=== PATIENT | male | born 1935 | race Caucasian/White ===

== ENCOUNTER 2022-07-08 06:40 | Outpatient (OUT) | payer MEDICARE, SELFPAY ==
[2022-07-08] MEDS: REGADENOSON 0.4 MG/5 ML SYRINGE IV (09:09)
[2022-07-08 11:26] VITALS: BMI 30.5
== END 2022-07-08 06:41 ==
LOC: CARD 06:42
PROVIDERS: PCP Family Medicine; Visit Provider Internal Medicine Interventional Cardiology
DX: R07.9 Chest pain, unspecified (principal)
CPT/HCPCS: 93017; J2785

== ENCOUNTER 2022-07-16 13:11 | Outpatient (OUT) | payer MEDICARE, SELFPAY ==
[2022-07-16 13:47] LABS: Basophils Percent Auto 0.3 % (0.2-2.0); Eosinophils Absolute Auto 0.4 10^3/uL (0.0-0.7); Eosinophils Percent Auto 5.8 % (0.9-7.0); Hematocrit 37.7 % (42.0-54.0); Hemoglobin 12.5 g/dL (14.0-18.0); Immature Granulocytes Abs Auto 0.01 10^3/uL (0.00-0.03); Immature Granulocytes Pct Auto 0.2 % (0.0-0.5); Lymphocytes Absolute Auto 1.4 10^3/uL (1.2-3.8); Lymphocytes Percent Auto 21.7 % (20.5-60.0); Mean Corpuscular HGB Conc 33.2 g/dL (29.9-35.2); Mean Corpuscular Hemoglobin 29.8 pg (25.9-34.0); Mean Corpuscular Volume 89.8 fL (80.0-94.0); Mean Platelet Volume 10.2 fL (9.5-13.5); Monocytes Absolute Auto 0.6 10^3/uL (0.3-0.8); Monocytes Percent Auto 9.7 % (1.7-12.0); Neutrophils Absolute Auto 3.9 10^3/uL (1.4-6.5); Neutrophils Percent Auto 62.3 % (43.0-75.0); Platelet Count 166 10^3/uL (150-450); White Blood Count 6.2 10^3/uL (4.0-11.0)
[2022-07-16 13:56] LABS: Anion Gap 10.6; BUN Creatinine Ratio 14.9; Calcium 8.6 mg/dL (8.5-10.1); Carbon Dioxide 31.7 mmol/L (21.0-32.0); Chloride 103 mmol/L (98-107); Estimated GFR (African America 47 (>=60); Estimated GFR (Non-African Ame 39 (>=60); Glucose 285 mg/dL (74-106); Potassium 4.3 mmol/L (3.5-5.1); Sodium 141 mmol/L (136-145)
--- NOTE | 2022-07-19 16:36 | PCN_ITS ---
Requesting Physician:? Oswaldo Deleon M.D. Procedure Date:? 07/08/2022 PERFORMING PHYSICIAN:? Yisel Soto M.D. INDICATION:? Chest pain. STRESS TEST TYPE:? Nuclear Lexiscan myocardial perfusion imaging. RESTING EKG:? Abnormal, sinus rhythm with ST/T-wave abnormalities, concerning for lateral ST and first degree AV block. RESTING HEART RATE:? 74 PEAK HEART RATE:? 85 RESTING BLOOD PRESSURE:? 138/78 PEAK BLOOD PRESSURE:? 138/78 ST CHANGES:? No definitive ST changes meeting the criteria for ischemia. SYMPTOMS:? None. ARRHYTHMIAS:? None. CONCLUSIONS: 1.? Baseline EKG is abnormal.? Patient had sinus rhythm with first degree AV block, ST and T-wave abnormalities, concerning for lateral ischemia. 2.? No definite EKG changes meeting the criteria for ischemia post Lexiscan infusion. 3.? Please refer to separately performed and interpreted nuclear perfusion imaging. [facility]
== END 2022-07-16 13:12 ==
PROVIDERS: PCP Family Medicine
DX: I48.3 Typical atrial flutter (principal)
CPT/HCPCS: 36415; 80048; 85025

== ENCOUNTER 2022-07-27 15:04 | Outpatient (OUT) | payer MEDICARE, SELFPAY ==
[2022-07-27 16:05] LABS: Alanine Aminotransferase 24 U/L (16-63); Albumin Globulin Ratio 0.9; Albumin Level 3.4 g/dL (3.4-5.0); Alkaline Phosphatase 53 U/L (46-116); Anion Gap 11.4; Aspartate Amino Transferase 18 U/L (15-37); BUN Creatinine Ratio 23.4; Bilirubin Total 0.8 mg/dL (0.2-1.0); Calcium 8.9 mg/dL (8.5-10.1); Carbon Dioxide 29.1 mmol/L (21.0-32.0); Chloride 105 mmol/L (98-107); Estimated GFR (African America 48 (>=60); Estimated GFR (Non-African Ame 39 (>=60); Globulin 3.9 g/dL; Glucose 191 mg/dL (74-106); Potassium 4.5 mmol/L (3.5-5.1); Sodium 141 mmol/L (136-145); Total Protein 7.3 g/dL (6.4-8.2)
== END 2022-07-27 15:05 ==
LOC: LAB 15:06
PROVIDERS: PCP Family Medicine
DX: I25.118 Atherosclerotic heart disease of native coronary artery with other forms of angina pectoris (principal)
CPT/HCPCS: 36415; 80053

== ENCOUNTER 2022-10-13 11:48 | Emergency (ER) | payer MEDICARE, SELFPAY ==
[2022-10-13] VITALS (54 sets, daily range): BP systolic 127–171; BP diastolic 61–100; PULSE 70–101; RESP 0–22; TEMP 37.1; O2SAT 91–99
--- NOTE | 2022-10-13 11:51 | ED_ITS ---
HPI - Chest Pain General Chief Complaint: Chest Pain Stated Complaint: CHEST PAIN Time Seen by Provider: 10/13/22 11:51 History of Present Illness HPI narrative: Patient brought into the emergency department via EMS for complaint of chest pain. Patient states he was having breakfast this morning and developed chest pain. He states he felt nauseated vomited one time and the chest pain got better. He states he gets this chest pain intermittently when he eats. He denies any nausea currently. He is not having any pain currently. He states he feels a bit weak. He denies any palpitations, dizziness, lightheadedness. He denies any diaphoresis. He denies any abdominal pain. Denies any diarrhea. He denies any cough, shortness of breath or upper respiratory infection symptoms. Patient states he has a history of coronary artery disease. He had a heart catheterization in April at [facility] where he was told he needed at least 3 stents were cabbage. He was advised that he is not a candidate for CABG but he did not have any stents placed during that intervention. The patient has been taking isosorbide since. Related Data Home Medications Medication Instructions Recorded Confirmed apixaban 5 mg tablet (Eliquis) 5 mg PO BID 07/08/22 10/13/22 atorvastatin 40 mg tablet 40 mg PO QDAY 07/08/22 10/13/22 insulin glargine 100 unit/mL (3 28 unit subcut QDAY 07/08/22 10/13/22 mL) subcutaneous pen (Lantus Solostar U-100 Insulin) losartan 50 mg tablet (Cozaar) 50 mg PO QDAY 07/08/22 10/13/22 metoprolol succinate 25 mg 25 mg PO QDAY 07/08/22 10/13/22 tablet,extended release 24 hr ezetimibe 10 mg tablet 10 mg PO DAILY 10/13/22 10/13/22 potassium chloride 10 mEq 10 meq PO BID 10/13/22 10/13/22 tablet,extended release Allergies Allergy/AdvReac Type Severity Reaction Status Date / Time niacin Allergy Mild Flushing Verified 07/08/22 10:24 Review of Systems ROS Status of ROS 10 or more systems reviewed and unremarkable except as noted in history and below Exam Narrative Exam Narrative: Nurses notes and vital signs reviewed and patient is not hypoxic. General: Nontoxic,Elderly, frail, chronically ill, and in no apparent distress. Skin: Warm, dry, no pallor noted. No Rash Head: Normocephalic, atraumatic. Neck: Supple, non-tender. Eye: Pupils are equal, round and EOMI. No scleral icterus. Ears, Nose, Mouth, and Throat: TM clear, no posterior oropharynx erythema or nasal mucosal hypertrophy, uvula is mid-line Cardiovascular: Regular Rate and Rhythm without murmur, gallop or rub. Respiratory: No accessory muscle use or respiratory distress. Lungs are clear to auscultation, no wheezing, rales or rhonchi Chest Wall: no tenderness Back: No midline thoracic or lumbar vertebral tenderness. No CVA tenderness Musculoskeletal: normal ROM, no calf or popliteal tenderness, no lower extremity edema/swelling GI: Abdomen is soft, non-distended. Normal bowel sounds. No tenderness to palpation. No rebound, guarding, or rigidity noted. Neurological: A&O x4. No cranial nerve dysfunction observed. No truncal ataxia. Moves all extremities. Psychiatric: Cooperative and interactive. Normal mood and affect. Constitutional Vital Signs, click to edit/add: Last Vital Signs Temp 98.8 F 10/13/22 11:51 Pulse 78 10/13/22 16:00 Resp 8 L 10/13/22 16:00 BP 158/85 H 10/13/22 16:00 Pulse Ox 99 10/13/22 16:00 O2 Del Method Room Air 10/13/22 11:51 Course Vital Signs Vital signs: Vital Signs Temperature 98.8 F 10/13/22 11:51 Pulse Rate 89 10/13/22 11:51 Respiratory Rate 18 10/13/22 11:51 Blood Pressure 167/84 H 10/13/22 11:51 Pulse Oximetry 94 L 10/13/22 11:51 Oxygen Delivery Method Room Air 10/13/22 11:51 Temperature 98.8 F 10/13/22 11:51 Pulse Rate 78 10/13/22 16:00 Respiratory Rate 8 L 10/13/22 16:00 Blood Pressure 158/85 H 10/13/22 16:00 Pulse Oximetry 99 10/13/22 16:00 Oxygen Delivery Method Room Air 10/13/22 11:51 MDM - Chest Pain MDM Narrative Medical decision making narrative: EKG shows ST depressions in V3 to V6. The patient's troponin is elevated. Patient was discussed with Dr. White who advised sending the patient to [facility]. Patient states if he were to need stents he would want stents. Patient was started on nitroglycerin and heparin drips. Patient was discussed with the hospitalist to [facility] who has accepted the patient in transfer. They are discharged to pending at this time. Patient remains hemodynamically stable. We'll continue to monitor the patient, repeat labs. Patient will be signed out at the end of my shift to Dr. Webb at the end of my shift awaiting bed assignment/transfer to [facility]. This note was created with the assistance of a speech recognition program. Although the intention is to generate documents that actually reflects the content of the visit, no guarantees can be provided that every mistake has been identified and corrected by editing. Medical Records Data Attestation: I reviewed the patient's medical records. Lab Data Attestation: I reviewed the patient's lab results. Labs: Lab Results 10/13/22 Range/Units 12:06 WBC 5.3 (4.0-11.0) 10^3/uL RBC 4.95 (4.70-6.10) 10^6/uL Hgb 14.7 (14.0-18.0) g/dL Hct 44.7 (42.0-54.0) % MCV 90.3 (80.0-94.0) fL MCH 29.7 (25.9-34.0) pg MCHC 32.9 (29.9-35.2) g/dL RDW 12.6 (11.0-15.0) % Plt Count 130 L (150-450) 10^3/uL MPV 10.4 (9.5-13.5) fL Neut % (Auto) 64.8 (43.0-75.0) % Lymph % (Auto) 20.4 L (20.5-60.0) % Benson % (Auto) 9.9 (1.7-12.0) % Eos % (Auto) 4.3 (0.9-7.0) % Baso % (Auto) 0.4 (0.2-2.0) % Neut # (Auto) 3.5 (1.4-6.5) 10^3/uL Lymph # (Auto) 1.1 L (1.2-3.8) 10^3/uL Benson # (Auto) 0.5 (0.3-0.8) 10^3/uL Eos # (Auto) 0.2 (0.0-0.7) 10^3/uL Baso # (Auto) 0.0 (0.0-0.1) 10^3/uL Abs Immat Gran (auto) 0.01 (0.00-0.03) 10^3/uL Imm/Tot Granulo (auto) 0.2 (0.0-0.5) % PT 11.8 H (9.0-11.6) sec INR 1.12 APTT 30.9 (22.3-36.2) sec Sodium 138 (136-145) mmol/L Potassium 4.1 (3.5-5.1) mmol/L Chloride 103 (98-107) mmol/L Carbon Dioxide 28.6 (21.0-32.0) mmol/L Anion Gap 10.5 BUN 34.0 H (7.0-18.0) mg/dL Creatinine 1.55 H (0.70-1.30) mg/dL Est GFR ( Amer) 52 L (>=60) Est GFR (Non-Af Amer) 43 L (>=60) BUN/Creatinine Ratio 21.9 Glucose 303 H (74-106) mg/dL Calcium 9.4 (8.5-10.1) mg/dL Total Bilirubin 1.0 (0.2-1.0) mg/dL AST 31 (15-37) U/L ALT 25 (16-63) U/L Alkaline Phosphatase 52 (46-116) U/L Troponin I High Sens 1130.0 H* (4.0-76.1) pg/mL NT-Pro-B Natriuret Pep 2301.0 H* (<=1800.0) pg/mL Total Protein 7.6 (6.4-8.2) g/dL Albumin 3.7 (3.4-5.0) g/dL Globulin 3.9 g/dL Albumin/Globulin Ratio 0.9 ECG Data Attestation: I personally reviewed and interpreted this ECG as follows: Heart Score History: Highly Suspicious ECG: Sign. ST Depression Age: >65 years Risk Factors: >3 Risk Factors/ HX of CAD:2 Troponin: >3X Normal Limit Total Heart Score Recommendations & Risks:: 10 Discharge Plan Discharge Chief Complaint: Chest Pain Clinical Impression: Acute non-ST elevation myocardial infarction (NSTEMI) Patient Disposition: Still a Patient Time of Disposition Decision: 14:06 Discharge Location: The [facility] Condition: Good Mode of Transportation: EMS
--- NOTE | 2022-10-13 11:52 | XR_ITS ---
The [address] [address] Patient Name: ZAIRA SINGLETON MRN: [id number] date: 1935 Sex: M Assigned Patient Location: ER Current Patient Location: ER Accession/Order Number: [id number] Exam Date: 10/13/2022 12:20 Report Date: 10/13/2022 12:46 At the request of: RADHA CRAWFORD Procedure: XR chest 1V EXAM: XR chest 1V HISTORY: cp COMPARISON: None. TECHNIQUE: AP view of the chest. FINDINGS: The cardiomediastinal silhouette is normal. The lungs are clear. There is no pneumothorax. No pleural effusion is noted. The osseous structures are intact. XR/XR chest 1V IMPRESSION: No acute cardiopulmonary process. Electronically authenticated by: CARA PENDLETON Date: 10/13/2022 12:46
--- NOTE | 2022-10-13 11:52 | ECG_ITS ---
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
[2022-10-13 12:34] LABS: INR 1.12; Partial Thromboplastin Time 30.9 sec (22.3-36.2); Prothrombin Time 11.8 sec (9.0-11.6)
[2022-10-13 12:35] LABS: Basophils Percent Auto 0.4 % (0.2-2.0); Eosinophils Absolute Auto 0.2 10^3/uL (0.0-0.7); Eosinophils Percent Auto 4.3 % (0.9-7.0); Hematocrit 44.7 % (42.0-54.0); Hemoglobin 14.7 g/dL (14.0-18.0); Immature Granulocytes Abs Auto 0.01 10^3/uL (0.00-0.03); Immature Granulocytes Pct Auto 0.2 % (0.0-0.5); Lymphocytes Absolute Auto 1.1 10^3/uL (1.2-3.8); Lymphocytes Percent Auto 20.4 % (20.5-60.0); Mean Corpuscular HGB Conc 32.9 g/dL (29.9-35.2); Mean Corpuscular Hemoglobin 29.7 pg (25.9-34.0); Mean Corpuscular Volume 90.3 fL (80.0-94.0); Mean Platelet Volume 10.4 fL (9.5-13.5); Monocytes Absolute Auto 0.5 10^3/uL (0.3-0.8); Monocytes Percent Auto 9.9 % (1.7-12.0); Neutrophils Absolute Auto 3.5 10^3/uL (1.4-6.5); Neutrophils Percent Auto 64.8 % (43.0-75.0); Platelet Count 130 10^3/uL (150-450); Red Blood Count 4.95 10^6/uL (4.70-6.10); Red Cell Distribution Width 12.6 % (11.0-15.0); White Blood Count 5.3 10^3/uL (4.0-11.0)
[2022-10-13 12:48] LABS: Alanine Aminotransferase 25 U/L (16-63); Albumin Globulin Ratio 0.9; Albumin Level 3.7 g/dL (3.4-5.0); Alkaline Phosphatase 52 U/L (46-116); Anion Gap 10.5; Aspartate Amino Transferase 31 U/L (15-37); BUN Creatinine Ratio 21.9; Calcium 9.4 mg/dL (8.5-10.1); Carbon Dioxide 28.6 mmol/L (21.0-32.0); Chloride 103 mmol/L (98-107); Estimated GFR (African America 52 (>=60); Estimated GFR (Non-African Ame 43 (>=60); Globulin 3.9 g/dL; Glucose 303 mg/dL (74-106); Potassium 4.1 mmol/L (3.5-5.1); Sodium 138 mmol/L (136-145); Total Protein 7.6 g/dL (6.4-8.2)
[2022-10-13] MEDS: HEPARIN SODIUM,PORCINE/D5W 25,000 UNIT/500 ML IV.SOLN 20 UNIT IV (14:17)
[2022-10-13] MEDS: NITROGLYCERIN IN 5 % DEXTROSE 50 MG/250 ML INFUS..BTL IV (14:19)
[2022-10-13 18:38] LABS: Troponin I High Sensitivity 1342.2 pg/mL (4.0-76.1)
[2022-10-13 18:46] LABS: Glucometer 173 mg/dL (74-106)
== END 2022-10-13 20:55 | disposition short-term general hospital (02) ==
PROVIDERS: Emergency Provider Emergency Medicine; PCP Family Medicine
DX: I21.4 Non-ST elevation (NSTEMI) myocardial infarction (principal); I25.10 Atherosclerotic heart disease of native coronary artery without angina pectoris; Z79.01 Long term (current) use of anticoagulants; Z79.4 Long term (current) use of insulin
CPT/HCPCS: 36415; 71045; 80053; 83880; 84484; 85025; 85610; 85730; 93005; 96374; 96375; 99285

== ENCOUNTER 2022-10-26 14:23 | Outpatient (OUT) | payer MEDICARE, SELFPAY ==
[2022-10-26 15:21] LABS: Anion Gap 10.9; BUN Creatinine Ratio 30.9; Calcium 9.1 mg/dL (8.5-10.1); Carbon Dioxide 27.6 mmol/L (21.0-32.0); Chloride 105 mmol/L (98-107); Estimated GFR (African America 48 (>=60); Estimated GFR (Non-African Ame 40 (>=60); Glucose 171 mg/dL (74-106); Potassium 4.5 mmol/L (3.5-5.1); Sodium 139 mmol/L (136-145)
== END 2022-10-26 14:24 | disposition home or self-care (01) ==
PROVIDERS: PCP Family Medicine; Visit Provider Nurse Practitioner
DX: I25.118 Atherosclerotic heart disease of native coronary artery with other forms of angina pectoris (principal)
CPT/HCPCS: 36415; 80048

== ENCOUNTER 2022-11-08 14:51 | Outpatient (OUT) | payer MEDICARE, SELFPAY ==
[2022-11-08 16:21] LABS: Anion Gap 14.2; BUN Creatinine Ratio 28.9; Calcium 9.1 mg/dL (8.5-10.1); Carbon Dioxide 25.9 mmol/L (21.0-32.0); Chloride 104 mmol/L (98-107); Estimated GFR (African America 44 (>=60); Estimated GFR (Non-African Ame 36 (>=60); Glucose 177 mg/dL (74-106); Potassium 5.1 mmol/L (3.5-5.1); Sodium 139 mmol/L (136-145)
== END 2022-11-08 14:52 | disposition home or self-care (01) ==
LOC: LAB 14:57
PROVIDERS: PCP Family Medicine; Visit Provider Nurse Practitioner
DX: I10 Essential (primary) hypertension (principal)
CPT/HCPCS: 36415; 80048

== ENCOUNTER 2022-11-15 14:46 | Outpatient (OUT) | payer MEDICARE, SELFPAY ==
[2022-11-15 15:42] LABS: Anion Gap 9.8; BUN Creatinine Ratio 22.8; Calcium 8.5 mg/dL (8.5-10.1); Carbon Dioxide 28.8 mmol/L (21.0-32.0); Chloride 105 mmol/L (98-107); Estimated GFR (African America 56 (>=60); Estimated GFR (Non-African Ame 46 (>=60); Glucose 173 mg/dL (74-106); Potassium 4.6 mmol/L (3.5-5.1); Sodium 139 mmol/L (136-145)
== END 2022-11-15 14:47 | disposition home or self-care (01) ==
LOC: LAB 14:48
PROVIDERS: PCP Family Medicine; Visit Provider Nurse Practitioner
DX: I11.0 Hypertensive heart disease with heart failure (principal)
CPT/HCPCS: 36415; 80048

== ENCOUNTER 2023-01-05 15:00 | Outpatient (OUT) | payer MEDICARE, SELFPAY ==
[2023-01-05 15:44] LABS: Anion Gap 11.5; BUN Creatinine Ratio 24.8; Calcium 8.7 mg/dL (8.5-10.1); Carbon Dioxide 29.8 mmol/L (21.0-32.0); Chloride 105 mmol/L (98-107); Estimated GFR (African America 56 (>=60); Estimated GFR (Non-African Ame 46 (>=60); Glucose 178 mg/dL (74-106); Potassium 4.3 mmol/L (3.5-5.1); Sodium 142 mmol/L (136-145)
== END 2023-01-05 15:01 | disposition home or self-care (01) ==
PROVIDERS: PCP Family Medicine; Visit Provider Nurse Practitioner
DX: I11.0 Hypertensive heart disease with heart failure (principal)
CPT/HCPCS: 36415; 80048

== ENCOUNTER 2023-02-04 07:05 | Outpatient (RCR) | payer MEDICARE, SELFPAY ==
--- NOTE | 2022-11-09 15:17 | CR1_ITS ---
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 Order Number: [id number] Syed MD: GERARDO DUMONT Interpretive Statements Session Date: Electronically Signed On 11-11-2022 7:10:25 EDT by GERARDO DUMONT
--- NOTE | 2022-12-08 11:13 | CR1_ITS ---
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 Order Number: [id number] Syed MD: GERARDO DUMONT Interpretive Statements Session Date: Electronically Signed On 12-09-2022 7:34:05 EDT by GERARDO DUMONT
--- NOTE | 2023-01-10 14:42 | CR1_ITS ---
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 Order Number: [id number] Syed MD: GERARDO DUMONT Interpretive Statements Session Date: Electronically Signed On 01-11-2023 7:18:34 EST by GERARDO DUMONT
--- NOTE | 2023-02-04 11:56 | CR1_ITS ---
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 Order Number: [id number] Syed MD: GERARDO DUMONT Interpretive Statements Session Date: Electronically Signed On 02-08-2023 7:17:41 EST by GERARDO DUMONT
== END 2023-02-04 17:08 | disposition home or self-care (01) ==
LOC: CR 07:05
PROVIDERS: PCP Family Medicine; Visit Provider Internal Medicine Interventional Cardiology
DX: I21.4 Non-ST elevation (NSTEMI) myocardial infarction (principal)
CPT/HCPCS: 93798

== ENCOUNTER 2023-02-11 07:11 | Outpatient (RCR) | payer MEDICARE, SELFPAY | END 2023-02-11 14:27 | disposition home or self-care (01) | LOC: CR 07:11 | PROVIDERS: PCP Family Medicine; Visit Provider Internal Medicine Interventional Cardiology | DX: I21.4 Non-ST elevation (NSTEMI) myocardial infarction (principal) | CPT/HCPCS: 93798 ==

== ENCOUNTER 2023-06-23 14:25 | Outpatient (OUT) | payer MEDICARE, SELFPAY ==
--- OUTSIDE RECORDS SUMMARY | 2023-06-23 14:46 | XMS_ITS | CCD ---
Author Organization [employer] Care Team Providers Care Sign Painter Name Role Phone DOMINGO MEDRANO Primary Care Physician [phone] Gilson Salgado Primary Care Physician NATALEE, DR HAZEL Attending Unavailable MEDRANO ., DR DOMINGO Tran Primary Care Unavailable NATALEE, DR HAZEL Admitting Unavailable TARA CARDENAS Attending Unavailable TARA CARDENAS Admitting Unavailable MEDRANO ., DR DOMINGO Tran Primary Care Unavailable CRICKET TIERNEY Attending Unavailable CRICKET TIERNEY Admitting Unavailable MEDRANO ., DR DOMINGO Tran Primary Care Unavailable CRICKET TIERNEY Consulting Unavailable CRICKET TIERNEY Attending Unavailable CRIKCET TIERNEY Admitting Unavailable MEDRANO ., DR DOMINGO Tran Primary Care Unavailable CRICKET TIERNEY Consulting Unavailable RAPHAEL FERNANDES Admitting Unavailable RAPHAEL FERNANDES Attending Unavailable REQUEST, NONE LISTED Primary Care Unavaila ble DOM, RAPHAEL Blanton Admitting Unavailable HIGHLHARDIK, RAPHAEL Blanton Attending Unavailable REQUEST, NONE LISTED Primary Care Unavaila valdo FERNANDES, RAPHAEL Blanton Admitting Unavailable RAPHAEL FERNANDES Attending Unavailable REQUEST, NONE LISTED Primary Care Unavaila ble DOM, RAPHAEL Blanton Admitting Unavailable HIGHLANDER, RAPHAEL Blanton Attending Unavailable REQUEST, NONE LISTED Primary Care Unavaila ble DOM, RAPHAEL Blanton Attending Unavailable REQUEST, NONE LISTED Primary Care Unavaila ble DOM, PETER D Admitting Unavailable HIGHLANDER, RAPHAEL Blanton Admitting Unavailable HIGHLHARDIK, RAPHAEL Blanton Attending Unavailable REQUEST, NONE LISTED Primary Care Unavaila TARA Andrew Attending Unavailable TARA CARDENAS Admitting Unavailable MEDRANO ., DR DOMINGO Tran Primary Care Unavailable CELIO SINGLETARY Consulting Unavailable CELIO SINGLETARY Attending Unavailable GILSON SALGADO Primary Care Unavailable CELIO SINGLETARY Admitting Unavailable TARA CARDENAS Consulting Unavailable TARA CARDENAS Attending Unavailable TARA CARDENAS Admitting Unavailable KELLY ., DR DOMINGO Tran Primary Care Unavailable REQUEST, DR MICHAEL LISTED Primary Care Unavaila ble KELLY ., DR DOMINGO Tran Consulting Unavailable MEDRANO ., DR DOMINGO Tran Attending Unavailable MEDRANO ., DR DOMINGO Tran Admitting Unavailable Dipesh, Gilson E. Attending Unavailable Ross, Gilson E. Attending Unavailable Ross, Gilson E. Attending Unavailable Ross, Gilson E. Attending Unavailable Ross, Gilson E. Attending Unavailable Ross, Gilson E. Attending Unavailable Ross, Gilson E. Attending Unavailable Ross, Gilson E. Attending Unavailable Ross, Gilson E. Admitting Unavailable Ross, Gilson E. Attending Unavailable Ross, Gilson E. Admitting Unavailable Ross, Gilson E. Attending Unavailable Ross, Gilson E. Admitting Unavailable Ross, Gilson E. Attending Unavailable Ross, Gilson E. Admitting Unavailable BOHACH, PATRICK Shrestha Attending Unavailabl e BOHPATRICK DELUNA Attending Unavailabl e HORANI, MERCEDES Referring Unavailable ANOOP REDDY Attending Unavailable DAGOBERTO COPPOLA Attending Unavailable TARA CARDENAS Attending Unavailable MUNROE, ADRIÁN Referring Unavailable GEMINICELIO Attending Unavailable FREDYAZTARA Allen Attending Unavailable GEMINICELIO Attending Unavailable MUNROE, ADRIÁN Referring Unavailable SLIME, WILBUR Referring Unavailable MUNROE, ADRIÁN Attending Unavailable MUNROE, ADRIÁN Admitting Unavailable MARC, CYN Admitting Unavailable YVETTE, RADHA Referring Unavailable HORANI, MERCEDES Attending Unavailable HORANI, MERCEDES Referring Unavailable Allergies Allergy Classification Reported Allergen(s) Allergy Type Date of Onset Reaction(s) Facility (3 sources) Ascorbic Acid / Cholecalciferol / Vitamin A; Translations: [multivitamin] Drug Allergy Unknown (qualifier value) [facility] (5 sources) Niacin; Translations: [niacin] Drug Allergy 1 Unknown (qualifier value) [facility] (2 sources) Niacin Drug Allergy 3 [facility]ository (1 source) Multivitamin preparation; Translations: [MULTIVITAMIN] Drug Allergy 3 [facility] Repository Medications Current Medications Medication Drug Class(es) Dates Sig (Normalized) Sig (Original) apixaban 5 mg oral tablet (3 sources) Factor Xa Inhibitor Start: 04-20-2023 take 1 tablet by mouth twice daily Eliquis 5 mg oral tablet 5 mg = 1 tab(s), Oral, BID, Refills(s) 0 Start Date: 04/20/23 Status: Ordered Start: 04-19-2022 take 1 tablet by ryland th twice daily Eliquis 5 mg oral tablet TAKE 1 TABLET BY MOUTH TWICE A DAY. Resume this medication after I bruising has healed Start Date: 04/19/22 Status: Ordered ascorbic acid 250 mg oral tablet (1 source) Vitamin C Start: 04-23-2022 take 1 tablet by mouth twice daily ascorbic acid 250 mg oral tablet 250 mg = 1 tab(s), Oral, BID, # 60 EA, Refills(s) 0 Start Date: 04/23/22 Status: Ordered aspirin 81 mg delayed release oral tablet (2 sources) Platelet Aggregation Inhibitor, Nonsteroidal Anti-inflammatory Drug Start: 04-24-2022 take 1 tablet by mouth once daily aspirin 81 mg Oral EC Tab 81 mg = 1 tab(s), Oral, Daily, # 30 tab(s), Refills(s) 0 Start Date: 04/24/22 Status: Ordered atorvastatin 20 mg oral tablet (3 sources) HMG-CoA Reductase Inhibitor Start: 10-21-2022 take 1 tablet by mouth once daily Lipitor 20 mg Tab 20 mg = 1 tab(s), Oral, Daily, Refills(s) 0 Start Date: 10/21/22 Status: Ordered Start: 04-24-2022 take 1 tablet by ryland th at bedtime atorvastatin 40 mg Tab 40 mg = 1 tab(s), Oral, Bedtime, Refills(s) 0 Start Date: 04/24/22 Status: Ordered Handicap Placard (3 sources) Start: 04-23-[address] Handicap Placard, See Instructions, 1 EA, 0, Expires in 5 years Start Date: 04/23/22 Status: Ordered Handicap Placard, 5 years. (1 source) Start: 10-25-[address], 5 years. Handicap Placard, 5 years., See Instructions, 1 EA, 0, Handicap Placard, 5 years., Supply Start Date: 10/25/22 Status: Ordered 3 ml insulin glargine 100 unt/ml pen injector (3 sources) Insulin Analog Start: 11-08-2022 Lantus Solosta r Pen 100 units/mL subcutaneous solution See Instructions, 30units subq twice a day Please dispense 3 boxes to last 90 day supply, # 3 EA, Refills(s) 1, Pharmacy: [facility]/pharmacy #[id number], 182, cm, 10/25/22 7:40:00 EDT, Height/Length Dosing, 102, kg, 10/25/22 7:40:00 EDT, Weight Dosing Start Date: 11/08/22 Status: Ordered Start: 04-19-2022 Lantus Solosta r Pen 100 units/mL subcutaneous solution INJECT 28 UNITS TWICE DAILY Start Date: 04/19/22 Status: Ordered 3 ml insulin lispro 100 unt/ ml pen injector (4 sources) Insulin Analog Start: 04-18-2023 Start: 04-26-2022 End: 04-26-2022 Insulin Lispro Sliding Scale 0-10 Units, Injection-Insulin, SubCutaneous, Start date 04/26/22 11:30:00 EDT Start Date: 04/26/22 Stop Date: 04/26/22 Status: Completed Start: 04-19-2022 HumaLOG KwikPe n 100 units/mL injectable solution Refills(s) 0 Start Date: 04/19/22 Status: Ordered 24 hr isosorbide mononitrate 30 mg extended release oral tablet (1 source) Nitrate Vasodilator Start: 07-22-2022 take 1 tablet by mouth once daily in the morning isosorbide mononitrate 30 mg ER Tab 30 mg = 1 tab(s), Oral, qAM, Refills(s) 0 Start Date: 07/22/22 Status: Ordered ketorolac tromethamine 5 mg/ml ophthalmic solution (2 sources) Nonsteroidal Anti-inflammatory Drug, Cyclooxygenase Inhibitor Start: 04-23-2022 ketorolac Opth 0.5% Catherine Refill(s) 0 Start Date: 04/23/22 Status: Ordered losartan potassium 50 mg oral tablet (3 sources) Angiotensin 2 Receptor Delroy Start: 08-26-2022 take 1 tablet by mouth twice daily losartan 50 mg Tab See Instructions, TAKE 1 TABLET BY MOUTH TWICE A DAY, # 180 tab(s), Refills(s) 0, Pharmacy: [facility] STORE [id number], 182, cm, 06/08/22 13:43:00 EDT, Height/Length Dosing, 107, kg, 06/08/22 13:43:00 EDT, Weight Dosing Start Date: 08/26/22 Status: Ordered Start: 04-24-2022 take 1 tablet by ryland th twice daily losartan 50 mg Tab 50 mg = 1 tab(s), Oral, BID, # 60 tab(s), Refills(s) 0 Start Date: 04/24/22 Status: Ordered magnesium oxide 400 mg oral tablet (2 sources) Start: 04-19-2022 take 1 tablet by mouth once daily magnesium oxide 400 mg Tab TAKE 1 TABLET BY MOUTH EVERY DAY Start Date: 04/19/22 Status: Ordered metoprolol tartrate 50 mg oral tablet (5 sources) beta-Adrenergic Delroy Start: 04-20-2023 take 1 tablet by mouth twice daily Metoprolol tartrate 50 mg Tab 50 mg = 1 tab(s), Oral, BID, Refills(s) 0 Start Date: 04/20/23 Status: Ordered Start: 04-26-2022 End: 04-26-2022 Lopressor 25 mg oral tablet 25 mg = 1 tab(s), Tab, Oral, Start date 04/26/22 9:00:00 EDT, 04/24/22 3:19:00 EDT Start Date: 04/26/22 Stop Date: 04/26/22 Status: Completed Start: 04-25-2022 End: 04-25-2022 Lopressor 25 mg oral tablet 25 mg = 1 tab(s), Tab, Oral, Start date 04/25/22 21:00:00 EDT, 04/24/22 3:19:00 EDT Start Date: 04/25/22 Stop Date: 04/25/22 Status: Completed Start: 04-19-2022 take 1 tablet by ryland th twice daily Lopressor 25 mg oral tablet TAKE 1 TABLET BY MOUTH TWICE A DAY Start Date: 04/19/22 Status: Ordered ofloxacin 3 mg/ml ophthalmic solution (1 source) Quinolone Antimicrobial Start: 04-23-2022 ofloxacin Opth 0.3% Catherine Refill(s) 0 Start Date: 04/23/22 Status: Ordered Potassium Chloride (2 sources) Start: 04-19-2022 take 1 tablet by mouth twice daily Potassium Chloride (Yvq-[id number] 10) 10 mEq oral tablet, extended release TAKE 1 TABLET BY MOUTH TWICE A DAY Start Date: 04/19/22 Status: Ordered Zinc (2 sources) Start: 04-19-2022 take 1 tablet by mouth once daily [facility] ZINC 50 MG TABLET TAKE 1 TABLET BY MOUTH EVERY DAY Start Date: 04/19/22 Status: Ordered Completed/Discontinued Medications Medication Drug Class(es) Dates Sig (Normalized) Sig (Original) metoprolol 1 mg/mL Inj (1 source) Start: 04-24-2022 End: 04-26-2022 inject 5 mg intravenously every four hours as needed metoprolol 1 mg/mL Inj 5 mg = 5 mL, Injection, IV Push, q4hr PRN Other (see comment), Routine, Start date 04/24/22 3:09:00 EDT, 04/24/22 3:09:00 EDT Start Date: 04/24/22 Stop Date: 04/26/22 Status: Discontinued Pen Snow (1 source) Start: 08-11-2022 Pen Snow Pen Snow, See Instructions, 300 EA, 1, To be used with giving insulin three times Dx: E11.9, [id number], Supply, 182, cm, 06/08/22 13:43:00 EDT, Height/Length Dosing, 107, kg, 06/08/22 13:43:00 EDT, Weight Dosing Start Date: 08/11/22 Status: Ordered Problems Active Problems Problem Classification Problem Date Documented Date Episodic/Chronic Acute myocardial infarction (2 sources) Non-ST elevation (NSTEMI) myocardial infarction; Translations: [Non-ST elevation (NSTEMI) myocardial infarction] Onset: 10-14-2022 Chronic Cardiac dysrhythmias (10 sources) Atrial flutter; Translations: [Paroxysmal atrial fibrillation] Onset: 07-21-2022 04-23-2022 Chronic Cardiac dysrhythmias (2 sources) Palpitations; Translations: [Palpitations] Onset: 06-02-2023 Episodic Cataract (8 sources) Age-related nuclear cataract, right eye; Translations: [Age-related nuclear cataract, left eye] Onset: 03-11-2022 Chronic Chronic kidney disease (1 source) Chronic kidney disease; Translations: [Chronic kidney disease, unspecified] Onset: 04-24-2022 Chronic Chronic ulcer of skin (1 source) Non-pressure chronic ulcer of skin of other sites limited to breakdown of skin; Translations: [N-PRSS CHR ULCR SKIN OTH BRKDWN SKN] Onset: 09-11-2021 Chronic Congestive heart failure; nonhypertensive (8 sources) Heart failure, unspecified; Translations: [Chronic systolic (congestive) heart failure] Onset: 07-28-2021 Chronic Coronary atherosclerosis and other heart disease (6 sources) Atherosclerotic heart disease of [place] coronary artery without angina pectoris; Translations: [Coronary arteriosclerosis] Onset: 03-12-2022 10-25-2022 Chronic Diabetes mellitus with complications (20 sources) 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; Translations: [Type II diabetes mellitus uncontrolled] Onset: 08-21-2021 04-23-2022 Chronic Diabetes mellitus without complication (4 sources) Type 2 diabetes mellitus without complication; Translations: [Type 2 diabetes mellitus without complications] Onset: 03-12-2022 Chronic Disorders of lipid metabolism (7 sources) Hyperlipidemia; Translations: [Hyperlipidemia, unspecified] Onset: 03-12-2022 Chronic E Codes: Fall (1 source) Fall; Translations: [Unspecified fall, initial encounter] Onset: 04-24-2022 Episodic Essential hypertension (9 sources) Hypertensive disorder; Translations: [Essential (primary) hypertension] Onset: 03-12-2022 04-23-2022 Chronic Fluid and electrolyte disorders (3 sources) Hypokalemia 04-23-2022 Episodic Heart valve disorders (1 source) Nonrheumatic pulmonary valve insufficiency; Translations: [NONRHEUMATIC PULMONARY VALVE INSUFF] Onset: 02-26-2022 Chronic Hypertension with complications and secondary hypertension (1 source) Hypertensive urgency ; Translations: [Hypertensive urgency] Onset: 04-24-2022 Chronic Infective arthritis and osteomyelitis (except that caused by tuberculosis or sexually transmitted disease) (1 source) Other osteomyelitis, unspecified sites; Translations: [OTHER OSTEOMYELITIS UNS SITES] Onset: 01-14-2022 Chronic Malaise and fatigue (1 source) Asthenia 10-25-2022 Episodic Open wounds of head; neck; and trunk (1 source) Laceration of head; Translations: [Laceration without foreign body of other part of head, initial encounter] Onset: 04-23-2022 Episodic Other aftercare (3 sources) 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; Translations: [FCI CURRENT USE OF INSULIN] Onset: 03-12-2022 Episodic Other and ill-defined heart disease (3 sources) Heart disease 04-23-2022 Chronic Comment on above: other Other circulatory disease (1 source) History of cerebrovascular disease; Translations: [Personal history of other diseases of the circulatory system] Onset: 04-24-2022 Episodic Other circulatory disease (3 sources) Vascular insufficiency 04-19-2022 Episodic Comment on above: of limb Other diseases of kidney and ureters (3 sources) Kidney disease 04-23-2022 Episodic Comment on above: other Other diseases of veins and lymphatics (3 sources) Venous hypertension 04-19-2022 Episodic Other hematologic conditions (1 source) Abnormal finding on evaluation procedure; Translations: [Other specified abnormalities of plasma proteins] Onset: 04-23-2022 Episodic Other injuries and conditions due to external causes (1 source) Injury of head; Translations: [Unspecified injury of head, initial encounter] Onset: 04-24-2022 Episodic Other nervous system disorders (2 sources) Disorder of nervous system 04-19-2022 Episodic Comment on above: associated with DM T ype I Other non-traumatic joint disorders (1 source) Shoulder joint pain; Translations: [Pain in unspecified shoulder] Onset: 04-23-2022 Episodic Other nutritional; endocrine; and metabolic disorders (3 sources) Overweight 04-23-2022 Episodic Susanne-; endo-; and myocarditis; cardiomyopathy (except that caused by tuberculosis or sexually transmitted disease) (2 sources) Cardiomyopathy, unspecified; Translations: [Cardiomyopathy, unspecified] Onset: 07-21-2022 Chronic Peripheral and visceral atherosclerosis (3 sources) Peripheral vascular disease; Translations: [Peripheral vascular disease, unspecified] Onset: 01-14-2022 Chronic Unclassified (1 source) Long-term current use of insulin 04-19-2023 Comment on above: Current Medication L ist includes Lantus and Humalog. added per OP CDI policy. Past or Other Problems Problem Classification Problem Date Documented Da te Episodic/Chronic Other aftercare (1 source) intermediate (current) use of anticoagulants; Translations: [FCI CURRNT USE ANTICOAGULANTS] Onset: 03-12-2022 Episodic Other lower respiratory disease (6 sources) Other forms of dyspnea; Translations: [OTHER FORMS OF DYSPNEA] Onset: 02-18-2022 Episodic Other skin disorders (5 sources) Corns and callosities; Translations: [CORNS AND CALLOSITIES] Onset: 10-26-2021 Episodic Other skin disorders (5 sources) Nail dystrophy; Translations: [NAIL DYSTROPHY] Onset: 09-28-2021 Episodic Residual codes; unclassified (1 source) Edema, unspecified; Translations: [EDEMA UNSPECIFIED] Onset: 01-14-2022 Episodic Skin and subcutaneous tissue infections (1 source) Cellulitis, unspecified; Translations: [CELLULITIS UNSPECIFIED] Onset: 01-14-2022 Episodic Superficial injury; contusion (1 source) Blister (nonthermal), left lower leg, initial encounter; Translations: [BLISTER NONTHERMAL LT LOW LEG INIT] Onset: 10-07-2021 Episodic Results Test Name Value Interpretation Reference Range Facility Office Visiton 06-02-2023 Follow-up visit [id number] Zaira Segura III 1935 M Date Provider Department Center 06/02/2023 DAGOBERTO MARCH CARD [facility] Family History Problem Relation Age of Onset Other Father Heart failure Sister Family Status - Relation Status Age at Father Sister Level of Service:67111 [place] OFFICE/OUTPATIENT ESTABLISHED MOD MDM 30 MIN Reason for Visit and Comments: Atrial Fibrillation [80] Congestive Heart Failure [127] Coronary Artery Disease [187] Hypertension [260578] Normal [facility] Ambulatory Visit Summaryon 0 05-02-2023 Ambulatory Visit Summary ZAIRA SEGURA III :1935 Visit Date:05/02/2023 Ambulatory Visit Instructions Your Diagnosis BMI 33.0-33.9,adult Your Care Team Attending Physician - Gilson Salgado MD Primary Care Physician - Gilson Salgado MD This Is Your Medications List Misc Prescription (BD UF MAIDA PEN NEEDLE [id number]) Misc Prescription (Handicap Placard) Misc Prescription (Handicap Placard, 5 years.) Misc Prescription (Pen Snow) Misc Prescription (pen needles) apixaban (Eliquis 5 mg oral tablet) atorvastatin (Lipitor 20 mg Tab) insulin glargine (Lantus Solostar Pen 100 units/mL subcutaneous solution) insulin lispro (HumaLOG KwikPen 100 units/mL injectable solution) isosorbide mononitrate (isosorbide mononitrate 30 mg ER Tab) losartan (losartan 50 mg Tab) metoprolol (Metoprolol tartrate 50 mg Tab) Procedures Performed Cardiac catheter (07/21/2022), Angioplasty, Cataract, Inguinal hernia, Stent, Surgery. Discharge Vitals Heart Rate (Peripheral) 80 Blood Pressure 138/78 Height 180 cm Height 71 in Weight 109.2 kg Weight 240.24 lb BMI 33.7 What to do next Scheduled Follow-Up Appointments Tuesday 10:00 AM EDT With: Dipesh PABLO, Gilson Jackson Where: [facility] [place] Normal [address] [place], [place] [id number]- \.br\ Medications\.b r\ What How Much When Why Instructions\. br\ Unchanged apixaban (Eliquis 5 mg oral tablet) 1 Tablets By Mouth 2 times a day\.br\ Unchanged atorvastatin (Lipitor 20 mg Tab) 1 Tablets By Mouth Every day\.br\ Unchanged insulin glargine (Lantus Solostar Pen 100 units/ mL subcutaneous solution) See instructions 30units subq twice a day Please dispense 3 boxes to last 90 day supply \.br\ Unchanged insulin lispro (HumaLOG KwikPen 100 units/ mL injectable solution) See instructions USE DIRECTED *MAX OF 10 UNITS/ DAY * BEFOR MEALS AND BEDTIME \.br\ Unchanged isosorbide mononitrate (isosorbide mononitrate 30 mg ER Tab) 1 Tablets By Mouth Once a day (in the morning)\.br\ Unchanged losartan (losartan 50 mg Tab) See instructions TAKE 1 TABLET BY MOUTH TWICE A DAY \.br\ Unchanged metoprolol (Metoprolol tartrate 50 mg Tab) 1 Tablets By Mouth 2 times a day\.br\ Unchanged Misc Prescription (BD UF MAIDA PEN NEEDLE [id number]) USE 3 TIMES DAILY WITH INSULIN \.br\ Unchanged Misc Prescription (Handicap Placard) See instructions Expires in 5 years \.br\ Unchanged Misc Prescription (Handicap Placard, 5 years.) See instructions Weakness generalized Handicap Akash, 5 years. \.br\ Unchanged Misc Prescription (pen needles) See instructions BD UF maida pen needle 4mm x 32g E11.9 \.br\ Unchanged Misc Prescription (Pen Snow) See instructions To be used with giving insulin three times Dx: E11.9 \.br\ Allergies\.br\ niacin (Unknown)\.br\ Problems\.br\ Ongoing - Any problem that you are currently receiving treatment for.\.br\ CAD in [place] artery\.br\ Chronic venous hypertension\. 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 br\ Hypokalemia\.b r\ Kidney disease\.br\ Overweight\.br \ Type II diabetes mellitus uncontrolled\. br\ Patient Survey\.br\ You may receive a survey via text or e-mail asking about your office visit. Please share your experience with us by completing your survey. We appreciate your feedback and thank you for choosing us for your care.\.br\ \.br\ [facility] Family Medicine Office/Clini c Noteon 05-02-2023 Family Medicine Office/Clinic Note Chief Complaint test results HPI Staff Zaira is an 88 year old male presenting for follow up after labs, A1C too high Recently seen to have his form for the BMV filled out. Patient's nephew brought patient to appointment. 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 Patient wonders if A1C going up could be do to that. Patient also would like to discuss kidney function results. History of Present Illness See staff HPI Physical Exam Vitals & Measurements HR: 80(Peripheral) BP: 138/78 SpO2: 97% HT: 71 in HT: 180 cm WT: 109.2 kg WT: 240.24 lb BMI: 33.7 General: alert, no acute distress ENMT: oral mucosa moist, Cardiovascular: regular rate and rhythm, normal peripheral perfusion Respiratory: Lungs CTA, respirations non labored Extremities: no deformity, no trauma Neurological: oriented x 4, LOC appropriate for age, CN II-XII intact, motor strength equal & normal bilaterally, speech normal, Using a walker Abdomen: Soft, Nontender, Non-distended, + BS Assessment/Plan 1. Type 2 diabetes mellitus with hyperglycemia, without long-term current use of insulin (E11.65: Type 2 diabetes mellitus with hyperglycemia) - Will restart Farxiga at 5. - Discussed cleaning his private parts more often. - Follow up in 3 months 2. HTN (hypertension) (I10: Essential (primary) hypertension) - At goal. - Will monitor 3. Long-term insulin use (Z79.4: intermediate (current) use of insulin) - No adjustments today as the patient states he has been running between 90-200. - Pt changed his diet to help himself improve on his insulin cost. 4. Stage 3a chronic kidney disease (CKD) (N18.31: Chronic kidney disease, stage 3a) - Will use farxiga to help with this as well. - Will monitor 5. BMI 33.0-33.9,adult (Z68.33: Body mass index [BMI] 33.0-33.9, adult) - BMI education given. Ordered: Body Mass Index (BMI) documented 3008F Current tobacco non-user 1036F Medication list documented in medical record [id number] Patient screen for fall risk: no falls in last year or 1 fall with no injury in last year 1101F Orders: dapagliflozin, 5 mg = 1 tab(s), Oral, Daily, # 90 tab(s), Refills(s) 1, [id number], 180, cm, 05/02/23 11:04:00 EDT, Height/Length Dosing, 109.2, kg, 05/02/23 11:02:00 EDT, Weight Dosing Follow-up No qualifying data available Patient Education BMI for Adults Problem List/Past Medical History Ongoing CAD in [place] artery Chronic venous hypertension HTN (hypertension) Long-term insulin use 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 Medications BD UF MAIDA PEN NEEDLE [id number] Eliquis 5 mg oral tablet, 5 mg= 1 tab(s), Oral, BID Farxiga 5 mg oral tablet, 5 mg= 1 tab(s), Oral, Daily, 1 refills Handicap Placard, See Instructions Handicap Placard, 5 years., See Instructions HumaLOG KwikPen 100 units/mL injectable solution, See Instructions isosorbide mononitrate 30 mg ER Tab, 30 mg= 1 tab(s), Oral, qAM Lantus Solostar Pen 100 units/mL subcutaneous solution, See Instructions, 1 refills Lipitor 20 mg Tab, 20 mg= 1 tab(s), Oral, Daily losartan 50 mg Tab, See Instructions Metoprolol tartrate 50 mg Tab, 50 mg= 1 tab(s), Oral, BID pen needles, See Instructions, 1 refills Pen Snow, See Instructions, 1 refills Allergies niacin (Unknown) Social History Alcohol - Denies Alcohol Use, 04/23/2022 Household alcohol concerns: No., 11/19/2022 Substance Abuse - Denies Substance Abuse, 04/23/2022 Tobacco - Denies Tobacco Use, 04/23/2022 Never (less than 100 in lifetime) Tobacco Use:. Never Smokeless Tobacco Use:. Household tobacco concerns: No., 05/02/2023 Family History Family history is unknown Immunizations Vaccine Date Status Comments pneumococcal 20-valent conjugate vaccine 01/04/2022 Recorded SARS-CoV-2 (COVID-19) [id number] 01/04/2022 Recorded SARS-CoV-2 (COVID-19) mRNA BNT-162b2 vax 12/08/2020 Recorded 2022-04-19: [id number] SARS-CoV-2 (COVID-19) mRNA BNT-162b2 vax 06/04/2020 Recorded SARS-CoV-2 (COVID-19) mRNA BNT-162b2 vax 05/14/2020 Recorded Normal [facility] Comment on above: Result Comment: Elec tronically Signed By: Diepsh PABLO, Gilson Russo.br\Date and Time Signed: 05/02/23 11:53 EDT Patient Educationon 05-02-19 24 Patient Education Nutrition BMI for Adults What is BMI? Body mass index (BMI) is a number that is calculated from a person's weight and height. BMI can help estimate how much of a person's weight is composed of fat. BMI does not measure body fat directly. Rather, it is an alternative to procedures that directly measure body fat, which can be difficult and expensive. BMI can help identify people who may be at higher risk for certain medical problems. What are BMI measurements used for? BMI is used as a screening tool to identify possible weight problems. It helps determine whether a person is obese, overweight, a healthy weight, or underweight. BMI is useful for: ? Identifying a weight problem that may be related to a medical condition or may increase the risk for medical problems. ? Promoting changes, such as changes in diet and exercise, to help reach a healthy weight. BMI screening can be repeated to see if these changes are working. How is BMI calculated? BMI involves measuring your weight in relation to your height. Both height and weight are measured, and the BMI is calculated from those numbers. This can be done either in [place] ([place] or metric measurements. Note that charts and online BMI calculators are available to help you find your BMI quickly and easily without having to do these calculations yourself. To calculate your BMI in [place] ([place] measurements: 1. Measure your weight in pounds (lb). 2. Multiply the number of pounds by 703. ? For example, for a person who weighs 180 lb, multiply that number by 703, which equals 126,540. 3. Measure your height in inches. Then multiply that number by itself to get a measurement called inches squared. ? For example, for a person who is 70 inches tall, the inches squared measurement is 70 inches x 70 inches, which equals 4,900 inches squared. 4. Divide the total from step 2 (number of lb x 703) by the total from step 3 (inches squared): 126,540 ? 4,900 = 25.8. This is your BMI. To calculate your BMI in metric measurements: 1. Measure your weight in kilograms (kg). 2. Measure your height in meters (m). Then multiply that number by itself to get a measurement called meters squared. ? For example, for a person who is 1.75 m tall, the meters squared measurement is 1.75 m x 1.75 m, which is equal to 3.1 meters squared. 3. Divide the number of kilograms (your weight) by the meters squared number. In this example: 70 ? 3.1 = 22.6. This is your BMI. What do the results mean? BMI charts are used to identify whether you are underweight, normal weight, overweight, or obese. The following guidelines will be used: ? Underweight: BMI less than 18.5. ? Normal weight: BMI between 18.5 and 24.9. ? Overweight: BMI between 25 and 29.9. ? Obese: BMI of 30 or above. Keep these notes in mind: ? Weight includes both fat and muscle, so someone with a muscular build, such as an athlete, may have a BMI that is higher than 24.9. In cases like these, BMI is not an accurate measure of body fat. ? To determine if excess body fat is the cause of a BMI of 25 or higher, further assessments may need to be done by a health care provider. ? BMI is usually interpreted in the same way for men and women. Where to find more information For more information about BMI, including tools to quickly calculate your BMI, go to these websites: ? Centers for Disease Control and Prevention: www.cdc.gov ? [place] Heart Association: www.heart.org ? National Heart, Lung, and Blood [place]: www.nhlbi.nih.gov Summary ? Body mass index (BMI) is a number that is calculated from a person's weight and height. ? BMI may help estimate how much of a person's weight is composed of fat. BMI can help identify those who may be at higher risk for certain medical problems. ? BMI can be measured using Ecuadorean measurements or metric measurements. ? BMI charts are used to identify whether you are underweight, normal weight, overweight, or obese. This information is not intended to replace advice given to you by your health care provider. Make sure you discuss any questions you have with your health care provider. Document Revised: 10/17/2019 Document Reviewed: 08/24/2019 [employer] Patient Education ? 2022 [employer]. [facility] Pre-Visit Planningon 024 Pre-Visit Planning - From: Tanya Mena To: Gilson Salgado MD; Sent: 04/29/2023 11:00:44 EDT Subject: Pre-Visit Planning Due Date/Time: 04/29/2023 11:00:00 EDT Caller Name: ZAIRA SEGURA III; Caller Number: H Hi Dr. Salgado. 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 Current Medication List: Eliquis, metoprolol, spironolactone, aspirin, isosorbide mononitrate, and losartan. Signify Health Facesheet: Acute on chronic systolic (congestive) heart failure per Dr. Tara Cardenas dated 10/19/2022, Chronic systolic (congestive) heart failure per Dr. Tanya Prince dated 10/17/2022, Chronic combined systolic (congestive) and diastolic (congestive) heart failure per Dr. Mercedes Savage dated 10/13/2022, and Cardiomyopathy unspecified per Dr. Celio Agustin dated 07/13/2022. Based on your medical judgment, can you please specify if any Signify Health Facesheet diagnoses are present? I can update the Chronic Problem List with your response if you would like. In responding to this request, please exercise your independent professional judgment. The fact that a question is asked does not imply that any particular answer is desired or expected. If you have any questions, please feel free to contact me at extension [phone]. Thank you! Tanya Mena LPN From: Gilson Salgado MD To: Tanya Mena; Sent: 05/02/2023 12:26:37 EDT Subject: RE: Pre-Visit Planning Caller Name: ZAIRA SEGURA III; Caller Number: H Chronic combined systolic (congestive) and diastolic (congestive) heart failure Please add Normal [address] [facility] [id number] 04-21-2023 HbA1c (Bld) [Mass fraction] 8.6 % High <=5.9 [facility] Comment on above: Performed By: #### 2 [id number], [id number], [id number], [id number], [id number] ####[facility] [address] [place] [address] U Microalbon 04-21-2023 Albumin DL <= 20 mg/L (U) [Mass/Vol] 5.1 mg/dL High 0.0-1.9 [facility] Comment on above: Performed By: #### 1 [id number], [id number] ####[facility] [address] [facility] [place] [address] U Protein/Creat Ratioon 04-07 Protein/Creatinine (U) [Ratio] 24.80 mg/gm Cr Normal .00-200.00 [facility] Comment on above: Performed By: #### 1 [id number], [id number] ####[facility] [address] [place] [address] U Creatinine 58.4 mg/dL Invalid Interpretation Code [facility] Comment on above: Performed By: #### 1 [id number], [id number] ####[facility] [address] [facility] [place] [address] Ur Total Protein 14.5 mg/dL Invalid Interpretation Code [facility] Comment on above: Performed By: #### 1 [id number], [id number] ####[facility] [address] [place] [address] Ambulatory Visit Summaryon 0 04-20-2023 Ambulatory Visit Summary ZAIRA SEGURA III :1935 Visit Date:04/20/2023 Ambulatory Visit Instructions Your Diagnosis Long-term insulin use 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 Paroxysmal A-fib Peripheral vascular disease Type 2 diabetes mellitus with hyperglycemia, without long-term current use of insulin BMI 33.0-33.9,adult Class 1 obesity due to excess calories in adult Your Care Team Attending Physician - Gilson Salgado MD Primary Care Physician - Gilson Salgado MD This Is Your Medications List Contact prescribing physician if questions or concerns Misc Prescription (BD UF MAIDA PEN NEEDLE [id number]) Misc Prescription (Handicap Placard) Misc Prescription (Handicap Placard, 5 years.) Misc Prescription (Pen Snow) Misc Prescription (pen needles) apixaban (Eliquis 5 mg oral tablet) atorvastatin (Lipitor 20 mg Tab) insulin glargine (Lantus Solostar Pen 100 units/mL subcutaneous solution) insulin lispro (HumaLOG KwikPen 100 units/mL injectable solution) isosorbide mononitrate (isosorbide mononitrate 30 mg ER Tab) losartan (losartan 50 mg Tab) metoprolol (Metoprolol tartrate 50 mg Tab) Procedures Performed Cardiac catheter (07/21/2022), Angioplasty, Cataract, Inguinal hernia, Stent, Surgery. Discharge Vitals Temperature (Temporal Artery) 36.6 ?C Heart Rate (Peripheral) 60 Respiratory Rate 16 Blood Pressure 124/68 Height 180 cm Height 71 in Weight 109.1 kg Weight 240.02 lb BMI 33.67 What to do next Scheduled Follow-Up Appointments 2023 9:15 AM EDT With: Gilson Salgado MD Where: [place] [id number]- \.br\ Medications\.b r\ What How Much When Why Instructions\. br\ Unchanged apixaban (Eliquis 5 mg oral tablet) 1 Tablets By Mouth 2 times a day Contact prescribing physician if questions or concerns \.br\ Unchanged atorvastatin (Lipitor 20 mg Tab) 1 Tablets By Mouth Every day Contact prescribing physician if questions or concerns \.br\ Unchanged insulin glargine (Lantus Solostar Pen 100 units/ mL subcutaneous solution) See instructions 30units subq twice a day Please dispense 3 boxes to last 90 day supply Contact prescribing physician if questions or concerns \.br\ Unchanged insulin lispro (HumaLOG KwikPen 100 units/ mL injectable solution) See instructions USE DIRECTED *MAX OF 10 UNITS/ DAY * BEFOR MEALS AND BEDTIME Contact prescribing physician if questions or concerns \.br\ Unchanged isosorbide mononitrate (isosorbide mononitrate 30 mg ER Tab) 1 Tablets By Mouth Once a day (in the morning) Contact prescribing physician if questions or concerns \.br\ Unchanged losartan (losartan 50 mg Tab) See instructions TAKE 1 TABLET BY MOUTH TWICE A DAY Contact prescribing physician if questions or concerns \.br\ Unchanged metoprolol (Metoprolol tartrate 50 mg Tab) 1 Tablets By Mouth 2 times a day Contact prescribing physician if questions or concerns \.br\ Unchanged Misc Prescription (BD UF MAIDA PEN NEEDLE [id number]) USE 3 TIMES DAILY WITH INSULIN Contact prescribing physician if questions or concerns \.br\ Unchanged Misc Prescription (Handicap Placard) See instructions Expires in 5 years Contact prescribing physician if questions or concerns \.br\ Unchanged Misc Prescription (Handicap Placard, 5 years.) See instructions Weakness generalized Handicap Placard, 5 years. Contact prescribing physician if questions or concerns \.br\ Unchanged Misc Prescription (pen needles) See instructions BD UF maida pen needle 4mm x 32g E11.9 Contact prescribing physician if questions or concerns \.br\ Unchanged Misc Prescription (Pen Snow) See instructions To be used with giving insulin three times Dx: E11.9 Contact prescribing physician if questions or concerns \.br\ Allergies\.br\ niacin (Unknown)\.br\ Problems\.br\ Ongoing - Any problem that you are currently receiving treatment for.\.br\ CAD in [place] artery\.br\ Chronic venous hypertension\. 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 br\ Hypokalemia\.b r\ Kidney disease\.br\ Overweight\.br \ Type II diabetes mellitus uncontrolled\. br\ Patient Survey\.br\ You may receive a survey via text or e-mail asking about your office visit. Please share your experience with us by completing your survey. We appreciate your feedback and thank you for choosing us for your care.\.br\ Education Materials\.br\ BMI for Adults\.br\ What is BMI?\.br\ Body mass index (BMI) is a number that is calculated from a person's weight and height. BMI can help estimate how much of a person's weight is composed of fat. BMI does not measure body fat directly. Rather, it is an alternative to procedures that directly measure body fat, which can be difficult and expensive.\.br \ BMI can help identify people who may be at higher risk for certain medical problems.\.br\ What are BMI measurements used for?\.br\ BMI is used as a screening tool to identify possible weight problems. It helps determine whether a person is obese, overweight, a healthy weight, or underweight.\. br\ BMI is useful for:\.br\ ? \.br\ Identifying a weight problem that may be related to a medical condition or may increase the risk for medical problems.\.br\ ? \.br\ Promoting changes, such as changes in diet and exercise, to help reach a healthy weight. BMI screening can be repeated to see if these changes are working.\.br\ How is BMI calculated?\.b r\ BMI involves measuring your weight in relation to your height. Both height and weight are measured, and the BMI is calculated from those numbers. This can be done either in [place] or metric measurements. Note that charts and online BMI calculators are available to help you find your BMI quickly and easily without having to do these calculations yourself.\.br\ To calculate your BMI in [place] ([place] measurements:\ .br\ \.br\ 1. \.br\ Measure your weight in pounds (lb).\.br\ 2. \.br\ Multiply the number of pounds by 703.\.br\ ? \.br\ For example, for a person who weighs 180 lb, multiply that number by 703, which equals 126,540.\.br\ 3. \.br\ Measure your height in inches. Then multiply that number by itself to get a measurement called inches squared. \.br\ ? \.br\ For example, for a person who is 70 inches tall, the inches squared measurement is 70 inches x 70 inches, which equals 4,900 inches squared.\.br\ 4. \.br\ Divide the total from step 2 (number of lb x 703) by the total from step 3 (inches squared): 126,540 ? 4,900 = 25.8. This is your BMI.\.br\ To calculate your BMI in metric measurements:\ .br\ 1. \.br\ Measure your weight in kilograms (kg).\.br\ 2. \.br\ Measure your height in meters (m). Then multiply that number by itself to get a measurement called meters squared. \.br\ ? \.br\ For example, for a person who is 1.75 m tall, the meters squared measurement is 1.75 m x 1.75 m, which is equal to 3.1 meters squared.\.br\ 3. \.br\ Divide the number of kilograms (your weight) by the meters squared number. In this example: 70 ? 3.1 = 22.6. This is your BMI.\.br\ What do the results mean?\.br\ BMI charts are used to identify whether you are underweight, normal weight, overweight, or obese. The following guidelines will be used:\.br\ ? \.br\ Underweight: BMI less than 18.5.\.br\ ? \.br\ Normal weight: BMI between 18.5 and 24.9.\.br\ ? \.br\ Overweight: BMI between 25 and 29.9.\.br\ ? \.br\ Obese: BMI of 30 or above.\.br\ Keep these notes in mind:\.br\ ? \.br\ Weight includes both fat and muscle, so someone with a muscular build, such as an athlete, may have a BMI that is higher than 24.9. In cases like these, BMI is not an accurate measure of body fat.\.br\ ? \.br\ To determine if excess body fat is the cause of a BMI of 25 or higher, further assessments may need to be done by a health care provider.\.br\ ? \.br\ BMI is usually interpreted in the same way for men and women.\.br\ Where to find more information\.b r\ For more information about BMI, including tools to quickly calculate your BMI, go to these websites:\.br\ ? \.br\ Centers for Disease Control and Prevention: www.cdc.gov\.b r\ ? \.br\ [place] Heart Association: www.heart.org\ .br\ ? \.br\ National Heart, Lung, and Blood [place]: www.nhlbi.nih. gov\.br\ Summary\.br\ ? \.br\ Body mass index (BMI) is a number that is calculated from a person's weight and height.\.br\ ? \.br\ BMI may help estimate how much of a person's weight is composed of fat. BMI can help identify those who may be at higher risk for certain medical problems.\.br\ ? \.br\ BMI can be measured using [place] measurements or metric measurements.\ .br\ ? \.br\ BMI charts are used to identify whether you are underweight, normal weight, overweight, or obese. [facility] CBC w/ Auto Diffon 4 Basophils/100 WBC (Bld) 0.5 % Normal 0.0-2.0 [facility] Comment on above: Performed By: #### 2 539530, 2854989, 14586829, 0162327, [id number] ####[facility] [address] [place] [address] Basophils/Leukocytes Auto (Bld) [Pure # fraction] 0.0 E9/L Normal 0.0-0.2 [facility] Comment on above: Performed By: #### 2 456278, 0688116, 49974043, 7711455, [id number] ####[facility] [address] [place] [address] Eosinophils (Bld) [#/Vol] 0.5 E9/L Normal 0.0-0.5 [facility] Comment on above: Performed By: #### 2 582890, 0740803, 92385604, 5727780, [id number] ####[place] [address] [place] [address] Eosinophils/100 WBC (Bld) 7.1 % Normal 0.0-8.0 [facility] Comment on above: Performed By: #### 2 458741, 8551734, 05811730, 4194869, [id number] ####[address] [address] Erythrocyte distribution width (RBC) [Ratio] 13.5 % Normal 10.9-14.2 [facility] Comment on above: Performed By: #### 2 589083, 0275660, 71916713, 0407190, [id number] ####[address] [address] Hematocrit (Bld) [Volume fraction] 43.3 % Normal 37.7-49.0 [facility] Comment on above: Performed By: #### 2 869189, 1401772, 50491915, 9359283, [id number] ####[address] [address] Hemoglobin (Bld) [Mass/Vol] 14.2 g/dL Normal 13.5-17.5 [facility] Comment on above: Performed By: #### 2 403589, 4242926, 58952236, 7271702, [id number] ####[address] [address] Lymphocytes (Bld) [#/Vol] 1.7 E9/L Normal 1.0-4.0 [facility] Comment on above: Performed By: #### 2 452017, 9227830, 76911444, 7574650, [id number] ####[address] [address] Lymphocytes/100 WBC (Bld) 24.2 % Normal 14.0-50.0 [facility] Comment on above: Performed By: #### 2 820083, 1568237, 49190747, 8660169, [id number] ####[address] [place] [address] MCH (RBC) [Entitic mass] 29.4 pg Normal 27.0-34.0 [facility] Comment on above: Performed By: #### 2 290498, 4253279, 42725667, 7199740, [id number] ####[address] [address] MCHC (RBC) [Mass/Vol] 32.7 g/dL Normal 31.4-36.0 [facility] Comment on above: Performed By: #### 2 979321, 6444769, 75484817, 4429885, [id number] ####[address] [address] MCV (RBC) [Entitic vol] 90.0 fL Normal 80.0-100.0 [facility] Comment on above: Performed By: #### 2 652599, 1118749, 21628425, 4539969, [id number] ####[address] [address] Monocytes (Bld) [#/Vol] 0.8 E9/L Normal 0.2-1.0 [facility] Comment on above: Performed By: #### 2 087824, 4268057, 69498700, 8795300, 385322354 ####[address] [address] Neutrophils (Bld) [#/Vol] 3.9 E9/L Normal 2.0-7.5 [facility] Comment on above: Performed By: #### 2 681962, 0718758, 55757505, 6804868, 400340524 ####[address] [address] Neutrophils/100 WBC (Bld) 57.0 % Normal 36.0-75.0 [facility] Comment on above: Performed By: #### 2 094499, 9012940, 65230227, 7482349, 034091719 ####[place] [address] [address] Platelet mean volume (Bld) [Entitic vol] 9.3 fL Normal 6.4-10.8 [facility] Comment on above: Performed By: #### 2 554593, 7807818, 37310710, 0581755, [id number] ####[address] [address] Platelets (Bld) [#/Vol] 144.0 E9/L Low 150.0-500.0 [facility] Comment on above: Performed By: #### 2 518543, 6273114, 98129001, 9787959, 128401301 ####[address] [address] RBC (Bld) [#/Vol] 4.8 E12/L Normal 4.3-5.9 [facility] Comment on above: Performed By: #### 2 848734, 5646136, 11577327, 4574460, [id number] ####[address] [address] WBC corrected for nucl RBC Auto (Bld) [#/Vol] 6.9 E9/L Normal 4.0-11.0 [facility] Comment on above: Performed By: #### 2 396168, 2839031, 93954372, 1378642, [id number] ####[address] [address] CHEMISTRYOrdered By: SYSTEM SYSTEM on 04-20-2023 Albumin [Mass/Vol] 4.2 g/dL Normal 3.3 - 5.0 gm/dL [facility] Albumin/Globulin [Mass ratio] 1.6 {ratio} Normal 1.1 - 2.2 [facility] ALP [Catalytic activity/Vol] 50 [iU]/d Normal 21 - 98 Int._Unit/L [facility] ALT No additional P-5'-P [Catalytic activity/Vol] 15 [iU]/d Normal 6 - 46 Int._Unit/L [facility] Anion gap [Moles/Vol] 9 mmol/L Normal 6 - 16 mEq/L R emisol Chem AST [Catalytic activity/Vol] 18 [iU]/d Normal 5 - 43 Int._Unit/L [facility] Bilirubin [Mass/Vol] 0.7 mg/dL Normal 0.0 - 1 .1 mg/dL [facility] Calcium [Mass/Vol] 9.1 mg/dL Normal 8.9 - 11. 1 mg/dL [facility] Chloride [Moles/Vol] 105 mmol/L Normal 101 - 1 11 mmol/L [facility] Cholesterol [Mass/Vol] 74 mg/dL Low 120 - 200 mg/dL [facility] Cholesterol in HDL [Mass/Vol] 27 mg/dL Invalid Interpretation Code [facility] Comment on above: Result Comment: '>= 60 LOW RISK' '<= 40 HIGH RISK' Cholesterol in LDL [Mass/Vol] 37 mg/dL Normal <=129mg/dL [facility] Cholesterol in VLDL [Mass/Vol] 13 mg/dL Normal 7 - 40 mg/dL [facility] CO2 [Moles/Vol] 31 mmol/L Normal 21 - 31 mmol/L Remis ol Chem Creatinine [Mass/Vol] 1.5 mg/dL High 0.5 - 1.3 mg/dL [facility] eGFR 45 mL/min/1.73 m2 Low >=59mL/min /1.7 3 m2 [facility] Globulin (S) [Mass/Vol] 2.7 g/dL Normal 1.4 - 4.0 gm/dL [facility] Glucose [Mass/Vol] 87 mg/dL Normal 55 - 199 mg/dL Re misol Chem Potassium [Moles/Vol] 4.2 mmol/L Normal 3.5 - 5.3 mmol/L [facility] Protein [Mass/Vol] 6.9 g/dL Normal 6.0 - 7.8 gm/dL [facility] Sodium [Moles/Vol] 141 mmol/L Normal 135 - 145 mmol/L [facility] Triglyceride [Mass/Vol] 65 mg/dL Normal <=149mg/dL [facility] Urea nitrogen [Mass/Vol] 27 mg/dL High 5 - 21 mg/dL [facility] Urea nitrogen/Creatinine [Mass ratio] 18 mg/mg Normal 10 - 20 Rem[facility] CMPon 04-20-2023 Albumin [Mass/Vol] 4.2 g/dL Normal 3.3-5.0 [facility] Comment on above: Performed By: #### 2 282493, 3675145, 95224634, 2608155, [id number] ####[facility] [address] [place] [address] Albumin/Globulin (S) [Mass conc ratio] 1.6 Normal 1.1-2.2 [facility] Comment on above: Performed By: #### 2 939062, 2223274, 36226761, 0829941, [id number] ####[facility] [address] [place] [address] ALP [Catalytic activity/Vol] 50 Int._Unit/L Normal 21-98 [facility] [facility] Comment on above: Performed By: #### 2 [id number], 7479886, [id number], 8192290, [id number] ####[facility] [address] [place] [address] ALT No additional P-5'-P [Catalytic activity/Vol] 15 Int._Unit/L Normal 6-46 [facility] Comment on above: Performed By: #### 2 646643, 7406883, 70866963, 9887727, [id number] ####[facility] [address] [place] [address] Anion gap [Moles/Vol] 9 mmol/L Normal 6-16 [facility] Comment on above: Performed By: #### 2 330190, 8582067, 85441233, 1641427, [id number] ####[facility] [address] [place] [address] AST [Catalytic activity/Vol] 18 Int._Unit/L Normal 5-43 [facility] Comment on above: Performed By: #### 2 790477, 2400684, 97445077, 1451852, [id number] ####[facility] [address] [place] [address] Bilirubin [Mass/Vol] 0.7 mg/dL Normal 0.0-1.1 [facility] Comment on above: Performed By: #### 2 149153, 1436832, 46278458, 8225127, [id number] ####[facility] [address] [place] [address] Calcium [Mass/Vol] 9.1 mg/dL Normal 8.9-11.1 [facility] Comment on above: Performed By: #### 2 345178, 8791994, 31978793, 1020350, 235540063 ####[facility] [address] [place] [address] Chloride [Moles/Vol] 105 mmol/L Normal 101-111 [facility] Comment on above: Performed By: #### 2 268362, 3584682, 87198603, 3319639, [id number] ####[facility] [address] [place] [address] CO2 [Moles/Vol] 31 mmol/L Normal 21-31 [facility] Comment on above: Performed By: #### 2 616298, 8067787, 39441454, 7926116, [id number] ####[facility] [address] [place] [address] Creatinine [Mass/Vol] 1.5 mg/dL High 0.5-1.3 [facility] Comment on above: Performed By: #### 2 118636, 3038604, 63266803, 2067681, [id number] ####[facility] [address] [place] [address] Globulin (S) [Mass/Vol] 2.7 g/dL Normal 1.4-4.0 [facility] Comment on above: Performed By: #### 2 614945, 3143292, 17171964, 5503315, 347783169 ####[facility] [address] [place] [address] Glucose [Mass/Vol] 87 mg/dL Normal 55-199 [facility] Comment on above: Performed By: #### 2 171846, 6042198, 15136018, 7815306, [id number] ####[facility] [address] [place] [address] Potassium [Moles/Vol] 4.2 mmol/L Normal 3.5-5.3 [facility] Comment on above: Performed By: #### 2 478732, 4200065, 00477992, 8227198, [id number] ####[facility] [address] [place] [address] Protein [Mass/Vol] 6.9 g/dL Normal 6.0-7.8 [facility] Comment on above: Performed By: #### 2 990521, 8714812, 24184660, 7892419, 054394846 ####[facility] [address] [place] [address] Sodium [Moles/Vol] 141 mmol/L Normal 135-145 [facility] Comment on above: Performed By: #### 2 825635, 8459829, 24774552, 3345906, 761406764 ####[facility] [address] [place] [address] Urea nitrogen [Mass/Vol] 27 mg/dL High 5-21 [facility] Comment on above: Performed By: #### 2 360604, 2481170, 04388635, 1782930, 625125331 ####[facility] [address] [place] [address] Urea nitrogen/Creatinine [Mass ratio] 18 No Units Normal 10-20 [facility] Comment on above: Performed By: #### 2 194163, 9894757, 86734018, 5638496, [id number] ####[facility] [address] [place] [address] Family Medicine Office/Clini c Noteon 04-20-2023 Family Medicine Office/Clinic Note HPI Staff Acevedo is an 87 year old male presenting for a visit to get a form for the BMV filled out Patient is bringing the form History of Present Illness - Pt here for discussion on his BMV forms. - Wants to be able to continue to drive. - BS fluctuate up to over 500. - Pt states he has issues with balance. - States his reaction time is good. - He wants to just drive locally. Review of Systems PHQ Score Initial Depression Screen Score: 0 SCORE Physical Exam Vitals & Measurements T: 36.6 ?C(Temporal Artery) HR: 60(Peripheral) RR: 16 BP: 124/68 SpO2: 98% HT: 71 in HT: 180 cm WT: 109.1 kg WT: 240.02 lb BMI: 33.67 General: alert, no acute distress ENMT: oral mucosa moist, Cardiovascular: regular rate and rhythm, normal peripheral perfusion Respiratory: Lungs CTA, respirations non labored Extremities: no deformity, no trauma, In a wheelchair Neurological: oriented x 4, LOC appropriate for age, CN II-XII intact, motor strength equal & normal bilaterally, speech normal Abdomen: Soft, Nontender, Non-distended, + BS Assessment/Plan 1. 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 - Will recheck labs today Ordered: Body Mass Index (BMI) documented 3008F CBC w/ Auto Diff Comprehensive Metabolic Panel Current tobacco non-user 1036F Depression Screening Negative 3352F HgbA1c Influenza immunization status assessed 1030F Lipid Panel Microalbumin Level Urine Most recent diastolic blood pressure <80 mm Hg 3078F Patient screen for fall risk: no falls in last year or 1 fall with no injury in last year 1101F Systolic BP <130 mm Hg (Most Recent) 3074F U Protein/Creat Ratio 2. 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 - Pt is already in PT for this Ordered: Body Mass Index (BMI) documented 3008F CBC w/ Auto Diff Comprehensive Metabolic Panel Current tobacco non-user 1036F Depression Screening Negative 3352F HgbA1c Influenza immunization status assessed 1030F Lipid Panel Microalbumin Level Urine Most recent diastolic blood pressure <80 mm Hg 3078F Patient screen for fall risk: no falls in last year or 1 fall with no injury in last year 1101F Systolic BP <130 mm Hg (Most Recent) 3074F U Protein/Creat Ratio 3. Paroxysmal A-fib (I48.0: Paroxysmal atrial fibrillation) - Stable. - Continue on meds Ordered: Body Mass Index (BMI) documented 3008F CBC w/ Auto Diff Comprehensive Metabolic Panel Current tobacco non-user 1036F Depression Screening Negative 3352F HgbA1c Influenza immunization status assessed 1030F Lipid Panel Microalbumin Level Urine Most recent diastolic blood pressure <80 mm Hg 3078F Patient screen for fall risk: no falls in last year or 1 fall with no injury in last year 1101F Systolic BP <130 mm Hg (Most Recent) 3074F U Protein/Creat Ratio 4. Peripheral vascular disease (I73.9: Peripheral vascular disease, unspecified) - Stable Ordered: Body Mass Index (BMI) documented 3008F CBC w/ Auto Diff Comprehensive Metabolic Panel Current tobacco non-user 1036F Depression Screening Negative 3352F HgbA1c Influenza immunization status assessed 1030F Lipid Panel Microalbumin Level Urine Most recent diastolic blood pressure <80 mm Hg 3078F Patient screen for fall risk: no falls in last year or 1 fall with no injury in last year 1101F Systolic BP <130 mm Hg (Most Recent) 3074F U Protein/Creat Ratio 5. Type 2 diabetes mellitus with hyperglycemia, without long-term current use of insulin (E11.65: Type 2 diabetes mellitus with hyperglycemia) - BS are very high. - Pt agrees if BS are not regulated, we will not sign his BMV forms - Follow up in 1 month Ordered: Body Mass Index (BMI) documented 3008F CBC w/ Auto Diff Comprehensive Metabolic Panel Current tobacco non-user 1036F Depression Screening Negative 3352F HgbA1c Influenza immunization status assessed 1030F Lipid Panel Microalbumin Level Urine Most recent diastolic blood pressure <80 mm Hg 3078F Patient screen for fall risk: no falls in last year or 1 fall with no injury in last year 1101F Systolic BP <130 mm Hg (Most Recent) 3074F U Protein/Creat Ratio 6. BMI 33.0-33.9,adult (Z68.33: Body mass index [BMI] 33.0-33.9, adult) - BMI education given Ordered: Body Mass Index (BMI) documented 3008F CBC w/ Auto Diff Comprehensive Metabolic Panel Current tobacco non-user 1036F Depression Screening Negative 3352F HgbA1c Influenza immunization status assessed 1030F Lipid Panel Microalbumin Level Urine Most recent diastolic blood pressure <80 mm Hg 3078F Patient screen for fall risk: no falls in last year or 1 fall with no injury in last year 1101F Systolic BP <130 mm Hg (more content not included)... Normal [facility] Comment on above: Result Comment: Elec tronically Signed By: Dipesh PABLO, Gilson Russo.br\Date and Time Signed: 04/20/23 08:35 EDT Formson 04-20-2023 Forms [id number] 0TIFF Normal [facility] HEMATOLOGYOrdered By: SYSTEM SYSTEM on 04-20-2023 Basophils/100 WBC (Bld) 0.5 % Normal 0.0 - 2.0 % Remisol Heme Basophils/Leukocytes Auto (Bld) [Pure # fraction] 0.0 E9/L Normal 0.0 - 0.2 E9/L Rem[facility]e Eosinophils (Bld) [#/Vol] 0.5 E9/L Normal 0.0 - 0.5 E9/L Rem[facility]e Eosinophils/100 WBC (Bld) 7.1 % Normal 0.0 - 8.0 % Remisol Heme Erythrocyte distribution width (RBC) [Ratio] 13.5 % Normal 10.9 - 14.2 % Rem[facility]e Hematocrit (Bld) [Volume fraction] 43.3 % Normal 37.7 - 49.0 % Remisol Heme Hemoglobin (Bld) [Mass/Vol] 14.2 g/dL Normal 13.5 - 17.5 gm/dL Remisol Heme Lymphocytes (Bld) [#/Vol] 1.7 E9/L Normal 1.0 - 4.0 E9/L Rem[facility]e Lymphocytes/100 WBC (Bld) 24.2 % Normal 14.0 - 50.0 % Remisol Heme MCH (RBC) [Entitic mass] 29.4 pg Normal 27.0 - 34.0 pg Remisol Heme MCHC (RBC) [Mass/Vol] 32.7 g/dL Normal 31.4 - 36.0 gm/dL Remisol Heme MCV (RBC) [Entitic vol] 90.0 fL Normal 80.0 - 100.0 fL Rem[facility] Heme Monocytes (Bld) [#/Vol] 0.8 E9/L Normal 0.2 - 1.0 E9/L Remisol Heme Monocytes/100 WBC (Bld) 11.2 % Normal 4.0 - 14.0 % Remisol Heme Neutrophils (Bld) [#/Vol] 3.9 E9/L Normal 2.0 - 7.5 E9/L Rem[facility]e Neutrophils/100 WBC (Bld) 57.0 % Normal 36.0 - 75.0 % Rem[facility] Platelet mean volume (Bld) [Entitic vol] 9.3 fL Normal 6.4 - 10.8 fL Rem[facility]e Platelets (Bld) [#/Vol] 144.0 E9/L Low 150.0 - 500.0 E9/L Remisol Heme RBC (Bld) [#/Vol] 4.8 E12/L Normal 4.3 - 5.9 E12/L [facility] WBC corrected for nucl RBC Auto (Bld) [#/Vol] 6.9 E9/L Normal 4.0 - 11.0 E9/L Remisol Heme Lipid Panelon 04-20-2023 Cholesterol [Mass/Vol] 74 mg/dL Low 120-200 [facility] Comment on above: Performed By: #### 2 043970, 6081933, 21670668, 1712149, [id number] ####[facility] [address] [facility] [place] [address] Cholesterol in HDL [Mass/Vol] 27 mg/dL Invalid Interpretation Code [facility] Comment on above: Result Comment: '>= 60 LOW RISK' '<= 40 HIGH RISK' Performed By: #### 2 415910, 7467435, 41063353, 1174212, [id number] ####[facility] [address] [place] [address] Cholesterol in LDL [Mass/Vol] 37 mg/dL Normal <=129 [facility] Comment on above: Performed By: #### 2 572110, 1850266, 46891246, 8739466, 314777071 ####[facility] [address] [place] [address] Cholesterol in VLDL [Mass/Vol] 13 mg/dL Normal 7-40 [facility] Comment on above: Performed By: #### 2 490960, 7118457, 38672377, 7829365, [id number] ####[facility] [address] [place] [address] Triglyceride [Mass/Vol] 65 mg/dL Normal <=149 [facility] Comment on above: Performed By: #### 2 000620, 5901055, 44661439, 8888323, 273809820 ####[facility] [address] [place] [address] Patient Educationon 04-20-19 Patient Education Nutrition BMI for Adults What is BMI? Body mass index (BMI) is a number that is calculated from a person's weight and height. BMI can help estimate how much of a person's weight is composed of fat. BMI does not measure body fat directly. Rather, it is an alternative to procedures that directly measure body fat, which can be difficult and expensive. BMI can help identify people who may be at higher risk for certain medical problems. What are BMI measurements used for? BMI is used as a screening tool to identify possible weight problems. It helps determine whether a person is obese, overweight, a healthy weight, or underweight. BMI is useful for: ? Identifying a weight problem that may be related to a medical condition or may increase the risk for medical problems. ? Promoting changes, such as changes in diet and exercise, to help reach a healthy weight. BMI screening can be repeated to see if these changes are working. How is BMI calculated? BMI involves measuring your weight in relation to your height. Both height and weight are measured, and the BMI is calculated from those numbers. This can be done either in [place] ([place] or metric measurements. Note that charts and online BMI calculators are available to help you find your BMI quickly and easily without having to do these calculations yourself. To calculate your BMI in [place] measurements: 1. Measure your weight in pounds (lb). 2. Multiply the number of pounds by 703. ? For example, for a person who weighs 180 lb, multiply that number by 703, which equals 126,540. 3. Measure your height in inches. Then multiply that number by itself to get a measurement called inches squared. ? For example, for a person who is 70 inches tall, the inches squared measurement is 70 inches x 70 inches, which equals 4,900 inches squared. 4. Divide the total from step 2 (number of lb x 703) by the total from step 3 (inches squared): 126,540 ? 4,900 = 25.8. This is your BMI. To calculate your BMI in metric measurements: 1. Measure your weight in kilograms (kg). 2. Measure your height in meters (m). Then multiply that number by itself to get a measurement called meters squared. ? For example, for a person who is 1.75 m tall, the meters squared measurement is 1.75 m x 1.75 m, which is equal to 3.1 meters squared. 3. Divide the number of kilograms (your weight) by the meters squared number. In this example: 70 ? 3.1 = 22.6. This is your BMI. What do the results mean? BMI charts are used to identify whether you are underweight, normal weight, overweight, or obese. The following guidelines will be used: ? Underweight: BMI less than 18.5. ? Normal weight: BMI between 18.5 and 24.9. ? Overweight: BMI between 25 and 29.9. ? Obese: BMI of 30 or above. Keep these notes in mind: ? Weight includes both fat and muscle, so someone with a muscular build, such as an athlete, may have a BMI that is higher than 24.9. In cases like these, BMI is not an accurate measure of body fat. ? To determine if excess body fat is the cause of a BMI of 25 or higher, further assessments may need to be done by a health care provider. ? BMI is usually interpreted in the same way for men and women. Where to find more information For more information about BMI, including tools to quickly calculate your BMI, go to these websites: ? Centers for Disease Control and Prevention: www.cdc.gov ? [place] Heart Association: www.heart.org ? National Heart, Lung, and Blood [place]: www.nhlbi.nih.gov Summary ? Body mass index (BMI) is a number that is calculated from a person's weight and height. ? BMI may help estimate how much of a person's weight is composed of fat. BMI can help identify those who may be at higher risk for certain medical problems. ? BMI can be measured using [place]cu[place] measurements or metric measurements. ? BMI charts are used to identify whether you are underweight, normal weight, overweight, or obese. This information is not intended to replace advice given to you by your health care provider. Make sure you discuss any questions you have with your health care provider. Document Revised: 10/17/2019 Document Reviewed: 08/24/2019 [employer] Patient Education ? 2022 [employer]. [facility] Pre-Visit Planningon 024 Pre-Visit Planning - From: Tanya Mena To: Gilson Salgado MD; Sent: 04/19/2023 09:32:31 EDT Subject: Pre-Visit Planning Due Date/Time: 04/19/2023 09:32:00 EDT Caller Name: ZAIRA SEGURA III; Caller Number: H Hi Dr. Salgado. During a pre-visit planning chart review, I noted the following documentation in the medical record: [employer] Interactive Experience Facesheet: Chronic kidney disease, stage 3, unspecified per Dr. Mercedes Savage dated 10/13/2022. Glomerular filtration rate (GFR): =46 on 11/15/2022 and =49 on 06/25/2022. Based on your medical judgment, can you please clarify which, if any, of the following conditions are present? I can update the Chronic Problem List with your response if you would like. -Chronic Kidney Disease Stage 3a (GFR 45-59) -Chronic Kidney Disease Stage 3, unspecified (GFR 30-59) -Other (please specify): In responding to this request, please exercise your independent professional judgment. The fact that a question is asked does not imply that any particular answer is desired or expected. If you have any questions, please feel free to contact me at extension [phone]. Thank you! Tanya Mena LPN From: Gilson Salgado MD To: Tanya Mena; Sent: 04/20/2023 14:06:08 EDT Subject: RE: Pre-Visit Planning Caller Name: ZAIRA SEGURA III; Caller Number: H Labs ordered today Normal [address] [place] [address] Pre-Visit Planning - From: Tanya Mena To: Gilson Salgado MD; Sent: 04/19/2023 09:22:32 EDT Subject: Pre-Visit Planning Due Date/Time: 04/19/2023 09:22:00 EDT Caller Name: ZAIRA SEGURA III; Caller Number: H Mt Dr. Salgado. 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 Current Medication List: Eliquis, metoprolol, spironolactone, aspirin, isosorbide mononitrate, and losartan. [employer] Facesheet: Acute on chronic systolic (congestive) heart failure per Dr. Tara Cardenas dated 10/19/2022, Chronic systolic (congestive) heart failure per Dr. Tanya Prince dated 10/17/2022, Chronic combined systolic (congestive) and diastolic (congestive) heart failure per Dr. Mercedes Savage dated 10/13/2022, and Cardiomyopathy unspecified per Dr. Celio Agustin dated 07/13/2022. Based on your medical judgment, can you please specify if any Signify Health Facesheet diagnoses are present? I can update the Chronic Problem List with your response if you would like. In responding to this request, please exercise your independent professional judgement. The fact that a question is asked does not imply that any particular answer is desired or expected. Thank you! If you have any questions, please feel free to contact me at extension [phone]. Thank you! Tanya Mena LPN From: Gilson Salgado MD To: Tanya Mena; Sent: 04/20/2023 14:05:41 EDT Subject: RE: Pre-Visit Planning Caller Name: ZAIRA SEGURA III; Caller Number: H Digna. I missed this. Normal [address] [facility] Pre-Visit Planning - From: Tanya Mena To: Gilson Salgado MD; Sent: 04/19/2023 08:48:18 EDT Subject: Pre-Visit Planning Due Date/Time: 04/19/2023 08:48:00 EDT Caller Name: ZAIRA SEGURA III; Caller Number: H Good morning Dr. Salgado. 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 Current Medication List: Farxiga, insulin glargine, and insulin lispro. Based on your medical judgment and conflicting documentation, can you please clarify if Type 1 diabetes mellitus or Type 2 diabetes mellitus is present? I can update the Chronic Problem List with your response if you would like. In responding to this request, please exercise your independent professional judgment. The fact that a question is asked does not imply that any particular answer is desired or expected. If you have any questions, please feel free to contact me at extension [phone]. Thank you! Tanya Mena LPN From: Gilson Salgado MD To: Tanya Mena; Sent: 04/20/2023 14:04:33 EDT Subject: RE: Pre-Visit Planning Caller Name: ZAIRA SEGURA III; Caller Number: H Digna. Its suppose to be type 2. Normal [address] [facility] eGFRon 04-20-2023 eGFR 45 mL/min/1.73 m2 Low >=59 [facility] Comment on above: Order Comment: Order added by Discern Expert. Performed By: #### 2 [id number], 0048724, 25242128, 2995036, [id number] ####[facility] [address] [place] [address] Home Health Recordson 2022 Home Health Records [id number] 0TIFF Normal [facility] Office Visiton 01-11-2023 Follow-up visit [id number] Zaira Segura III 1935 M Date Provider Department Center 01/11/2023 CELIO SCHNEIDER [facility] Family History Problem Relation Age of Onset Other Father Heart failure Sister Family Status - Relation Status Age at Father Sister Level of Service:13396 [place] OFFICE/OUTPATIENT ESTABLISHED LOW MDM 20-29 MIN Normal [facility] Home Health Recordson 2022 Home Health Records [id number] 0TIFF Normal [facility] Patient Logson 11-24-2022 Patient Logs [id number] Normal [facility] Family Medicine Office/Clini c Noteon 11-23-2022 Family Medicine Office/Clinic Note Chief Complaint Medicare Wellness Visit History of Present Illness I was in the office and available for consultation and to provide direct supervision at the time of this visit. I have provided supervision of the care team and have reviewed this chart and office note and agree with the plan of care. Covid-19, MERS, Ebola Screen *Contact With Person With Highly Contagious Disease Like Ebola/MERS/COVID-19 AND Have One or More of the Symptoms Below : No *Travel to a Country With Wide-Spread Ebola/MERS/COVID-19 in the Past 21 Days AND Have One or More of the Symptoms Below : No Patient Reported Covid-19 Testing : No *Verify Droplet, Contact Precautions for Ebola (Reference for CDC) : N/A *Verify Airborne, Droplet Precautions for MERS/COVID-19 : N/A Shaun Adame - 11/19/2022 8:51 EDT Medicare/Medicaid Summary Chief Complaint : Medicare Wellness Visit Systolic Blood Pressure : 118 mmHg Diastolic Blood Pressure : 60 mmHg Blood Pressure Location : Left arm Blood Pressure Position : Sitting O2 Sat Resting/Exertion Alpha : Resting Peripheral Pulse Rate : 61 bpm SpO2 : 98 % Pain Present : No actual or suspected pain Numeric Rating Pain Score : 5 Shaun Adame R - 11/19/2022 8:51 EDT Patient Counseled : Nutrition, Physical activity, Elevated BMI Height/Length Measured : 180 cm(Converted to: 5 ft 11 in, 70.87 in) Weight Measured : 102.7 kg(Converted to: 226 lb 7 Ounces, 226.415 lb) Body Mass Index Measured : 31.7 kg/m2 Height in Inches : 71 in Weight in Pounds : 225.94 lb Waist Measurement : 113 cm(Converted to: 44 in) WendiShaun garcia R - 11/19/2022 8:17 EDT Hearing and Vision Screening FT FT Whisper Test Comments : has one hearing aid, does not wear it. Does not note any issues or concerns Vision Screen Comments : wears corrective lenses, follows with Dr. Mccann every 3 months or as needed. WendiYimicourtney Wilson - 11/19/2022 8:51 EDT Advance Directive FT Advance Directive : Yes Type of Advance Directive : Living will, Medical durable power of civil rights attorney Location of Advance Directive : Copy at home, unable to obtain Patient Wishes to Receive Further Information on Advance Directives : No Organ Donation Consent : No WendiYimicourtney Wilson - 11/19/2022 8:51 EDT Procedures / Surgeries FT - Procedure History (As Of: 11/19/2022 09:02:13 EDT) Anesthesia Minutes: 0 ; Procedure Name: Angioplasty ; Procedure Minutes: 0 ; Comments: 04/23/2022 11:38 Daxa Blevins Rt leg 2020 ; Last Reviewed Dt/Tm: 11/19/2022 08:54:32 EDT Anesthesia Minutes: 0 ; Procedure Name: Stent ; Procedure Minutes: 0 ; Comments: 04/23/2022 11:38 EDT Daxa Jiménez Rt Leg 2020 ; Last Reviewed Dt/Tm: 11/19/2022 08:54:32 EDT Procedure Dt/Tm: 07/21/2022 ; Anesthesia Minutes: 0 ; Procedure Name: Cardiac catheter ; Procedure Minutes: 0 ; Last Reviewed Dt/Tm: 11/19/2022 08:54:32 EDT Anesthesia Minutes: 0 ; Procedure Name: Surgery ; Procedure Minutes: 0 ; Comments: 04/23/2022 11:39 Bigg B[place]insa Rt foot for infection ; Last Reviewed Dt/Tm: 11/19/2022 08:54:32 EDT Anesthesia Minutes: 0 ; Procedure Name: Inguinal hernia ; Procedure Minutes: 0 ; Last Reviewed Dt/Tm: 11/19/2022 08:54:32 EDT Family History Family History (As Of: 11/19/2022 09:02:13 EDT) Medicare/Medicaid Social History FT Social History (As Of: 11/19/2022 09:02:13 EDT) Alcohol: Denies Alcohol Use Household alcohol concerns: No. Comments: 11/19/2022 8:54 - Shaun Adame: denies (Last Updated: 11/19/2022 08:54:45 EDT by Shaun Adame) Tobacco: Denies Tobacco Use Never (less than 100 in lifetime) Tobacco Use:. Never Smokeless Tobacco Use:. Household tobacco concerns: No. Comments: 11/19/2022 8:54 - Shaun Adame: denies (Last Updated: 11/19/2022 08:54:59 EDT by Shaun Adame) Substance Abuse: Denies Substance Abuse (Last Updated: 04/23/2022 18:21:56 EDT by Viviane PAIZ, Mariposa Harman ) Health Risk Assessment FT HRA little interest or pleasure? : No HRA down, depressed, or hopeless? : No Hazards in your house? : No Fall Risk Past Year : No Worried About Falling : Yes Use a Cane or Walker? : Yes Someone Helps You in the Morning : No Fallen or felt dizzy standing up? : No Assistance with personal care? : Yes Trouble taking meds correctly? : No HRA Pain Present : Yes Primary Pain Location : Chest Numeric Rating Pain Scale : 5 = Moderate pain Numeric Rating Pain Score : 5 (Comment: patient states chest and lungs hurt through the middle of the night x 1 episode in the last 4 weeks. Denies any further episodes or concerns. [Shaun Adame - 11/19/2022 8:51 EDT] ) Able to walk without help? : Yes Ability to shop w/out help : No Prepare your own meals? : Yes Housework without help? : No Handle money without help : Yes Track own medications without help? : Yes Overall mood for past four weeks : Good and bad parts about equal General health rating : Poor Someone avail. to help if needed? : Yes, as much as (more content not included)... [facility] Comment on above: Result Comment: Elec tronically Signed By: Gilson Salgado MD\.br\Date and Time Signed: 11/23/22 11:39 EDT\.br\Electronically Co-Signed By: Shaun Adame\.br\Date and Time Co-Signed: 11/19/22 09:25 EDT Lab Reportson 11-23-2022 Lab Reports [id number] [facility] Screenson 11-22-2022 Screens [id number] [facility] Ambulatory Visit Summaryon 1 Ambulatory Visit Summary ZAIRA SEGURA III :1935 Visit Date:11/19/2022 Ambulatory Visit Instructions Your Diagnosis Annual visit for general adult medical examination without abnormal findings Refused influenza vaccine CAD in [place] artery HTN (hypertension) Mixed hyperlipidemia Diabetes Adult BMI 31.0-31.9 kg/sq m Your Care Team Attending Physician - Gilson Salgado MD. Primary Care Physician - Gilson Salgado MD This Is Your Medications List Misc Prescription (BD UF MAIDA PEN NEEDLE [id number]) Misc Prescription ([facility] ZINC 50 MG TABLET) Misc Prescription (Handicap Placard) Misc Prescription (Handicap Placard, 5 years.) Misc Prescription (Pen Snow) Misc Prescription (pen needles) apixaban (Eliquis 5 mg oral tablet) aspirin (aspirin 81 mg Oral EC Tab) atorvastatin (Lipitor 20 mg Tab) clopidogrel (Plavix 75 mg Tab) dapagliflozin (Farxiga 10 mg oral tablet) insulin glargine (Lantus Solostar Pen 100 units/mL subcutaneous solution) insulin lispro (HumaLOG KwikPen 100 units/mL injectable solution) isosorbide mononitrate (isosorbide mononitrate 30 mg ER Tab) losartan (losartan 50 mg Tab) metoprolol (metoprolol 100 mg ER Tab) Procedures Performed Cardiac catheter (07/21/2022), Angioplasty, Inguinal hernia, Stent, Surgery. Discharge Vitals Heart Rate (Peripheral) 61 Blood Pressure 118/60 Height 180 cm Height 71 in Weight 102.7 kg Weight 225.94 lb BMI 31.7 What to do next Scheduled Follow-Up Appointments Tuesday 1:00 PM EDT Where: [facility] Ambulatory Visit Summary ZAIRA SEGURA III :1935 Visit Date:11/19/2022 Ambulatory Visit Instructions Your Care Team Attending Physician - Gilson Salgado MD Primary Care Physician - Gilson Salgado MD. This Is Your Medications List Misc Prescription (BD UF MAIDA PEN NEEDLE [id number]) Misc Prescription ([facility]S ZINC 50 MG TABLET) Misc Prescription (Handicap Placard) Misc Prescription (Handicap Placard, 5 years.) Misc Prescription (Pen Snow) Misc Prescription (pen needles) apixaban (Eliquis 5 mg oral tablet) aspirin (aspirin 81 mg Oral EC Tab) atorvastatin (Lipitor 20 mg Tab) clopidogrel (Plavix 75 mg Tab) dapagliflozin (Farxiga 10 mg oral tablet) insulin glargine (Lantus Solostar Pen 100 units/mL subcutaneous solution) insulin lispro (HumaLOG KwikPen 100 units/mL injectable solution) isosorbide mononitrate (isosorbide mononitrate 30 mg ER Tab) losartan (losartan 50 mg Tab) metoprolol (metoprolol 100 mg ER Tab) Procedures Performed Cardiac catheter (07/21/2022), Angioplasty, Inguinal hernia, Stent, Surgery. What to do next Scheduled Follow-Up Appointments Tuesday 1:00 PM EDT Where: [facility] Patient Educationon 11-20-19 23 Patient Education Caregiving Fall Prevention in the Home, Adult Falls can cause injuries and affect people of all ages. There are many simple things that you can do to make your home safe and to help prevent falls. Ask for help when making these changes, if needed. What actions can I take to prevent falls? General instructions ? Use good lighting in all rooms. Replace any light bulbs that burn out, turn on lights if it is dark, and use night-lights. ? Place frequently used items in stkl-lo-[id number] places. Lower the shelves around your home if necessary. ? Set up furniture so that there are clear paths around it. Avoid moving your furniture around. ? Remove throw rugs and other tripping hazards from the floor. ? Avoid walking on wet floors. ? Fix any uneven floor surfaces. ? Add color or contrast paint or tape to grab bars and handrails in your home. Place contrasting color strips on the first and last steps of staircases. ? When you use a stepladder, make sure that it is completely opened and that the sides and supports are firmly locked. Have someone hold the ladder while you are using it. Do not climb a closed stepladder. ? Know where your pets are when moving through your home. What can I do in the bathroom? ? Keep the floor dry. Immediately clean up any water that is on the floor. ? Remove soap buildup in the tub or shower regularly. ? Use nonskid mats or decals on the floor of the tub or shower. ? Attach bath mats securely with double-sided, nonslip rug tape. ? If you need to sit down while you are in the shower, use a plastic, nonslip stool. ? Install grab bars by the toilet and in the tub and shower. Do not use towel bars as grab bars. What can I do in the bedroom? ? Make sure that a bedside light is easy to reach. ? Do not use oversized bedding that reaches the floor. ? Have a firm chair that has side arms to use for getting dressed. What can I do in the kitchen? ? Clean up any spills right away. ? If you need to reach for something above you, use a sturdy step stool that has a grab bar. ? Keep electrical cables out of the way. ? Do not use floor lithuanian or wax that makes floors slippery. If you must use wax, make sure that it is non-skid floor wax. What can I do with my stairs? ? Do not leave any items on the stairs. ? Make sure that you have a light switch at the top and the bottom of the stairs. Have them installed if you do not have them. ? Make sure that there are handrails on both sides of the stairs. Fix handrails that are broken or loose. Make sure that handrails are as long as the staircases. ? Install non-slip stair treads on all stairs in your home. ? Avoid having throw rugs at the top or bottom of stairs, or secure the rugs with carpet tape to prevent them from moving. ? Choose a carpet design that does not hide the edge of steps on the stairs. ? Check any carpeting to make sure that it is firmly attached to the stairs. Fix any carpet that is loose or worn. What can I do on the outside of my home? ? Use bright outdoor lighting. ? Regularly repair the edges of walkways and driveways and fix any cracks. ? Remove high doorway thresholds. ? Trim any shrubbery on the main path into your home. ? Regularly check that handrails are securely fastened and in good repair. Both sides of all steps should have handrails. ? Install guardrails along the edges of any raised decks or porches. ? Clear walkways of debris and clutter, including tools and rocks. ? Have leaves, snow, and ice cleared regularly. ? Use sand or salt on walkways during winter months. ? In the garage, clean up any spills right away, including grease or oil spills. What other actions can I take? ? Wear closed-toe shoes that fit well and support your feet. Wear shoes that have rubber soles or low heels. ? Use mobility aids as needed, such as canes, walkers, scooters, and crutches. ? Review your medicines with your health care provider. Some medicines can cause dizziness or changes in blood pressure, which increase your risk of falling. Talk with your health care provider about other ways that you can decrease your risk of falls. This may include working with a physical therapist or green jobs trainer to improve your strength, balance, and endurance. Where to find more information ? Centers for Disease Control and Prevention, [place]: www.cdc.gov ? National [place] on Aging: www.gumaro.nih.gov Contact a health care provider if: ? You are afraid of falling at home. ? You feel weak, drowsy, or dizzy at home. ? You fall at home. Summary ? There are many simple things that you can do to make your home safe and to help prevent falls. ? Ways to make your home safe include removing tripping hazards and installing grab bars in the bathroom. ? Ask for help when making these changes in your home. This information is not intended to replace advice given to you by your health ca (more content not included)... Normal [facility] 11-16-19 Population Health Case Information Case Priority: None Programs: -- Referral Source: Health Advisor Referral Reason: Care coordination Case Type: Transition Care Management Risk Score: -- Case Status: Enrolled (October 21, 2022) Date Assigned: October 21, 2022 Assigned By: Cassi Cohen RN Date Enrolled: October 21, 2022 Assigned Primary Personnel: Cassi Cohen RN Assigned Secondary Personnel: Shaun Adame Case Physician: Gilson Salgado MD Problems Ongoing CAD in [place] artery Chronic venous hypertension Hospital discharge follow-up HTN (hypertension) Mixed hyperlipidemia Neurological disorder 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 Home Medications Aldactone 25 mg Tab, 25 mg= 1 tab(s), Oral, Daily aspirin 81 mg Oral EC Tab, 81 mg= 1 tab(s), Oral, Daily BD UF MAIDA PEN NEEDLE [id number] [facility]S ZINC 50 MG TABLET Eliquis 5 mg oral tablet, 5 mg= 1 tab(s), Oral, BID, 3 refills Farxiga 10 mg oral tablet, 10 mg= 1 tab(s), Oral, Daily Handicap Placard, See Instructions Handicap Placard, 5 years., See Instructions HumaLOG KwikPen 100 units/mL injectable solution, See Instructions isosorbide mononitrate 30 mg ER Tab, 30 mg= 1 tab(s), Oral, qAM Lantus Solostar Pen 100 units/mL subcutaneous solution, See Instructions, 1 refills Lipitor 20 mg Tab, 20 mg= 1 tab(s), Oral, Daily losartan 50 mg Tab, See Instructions metoprolol 100 mg ER Tab, 100 mg= 1 tab(s), Oral, Daily pen needles, See Instructions, 1 refills Pen Snow, See Instructions, 1 refills Plavix 75 mg Tab, 75 mg= 1 tab(s), Oral, Daily Allergies niacin (Unknown) Social History Alcohol - Denies Alcohol Use, 04/23/2022 Substance Abuse - Denies Substance Abuse, 04/23/2022 Tobacco - Denies Tobacco Use, 04/23/2022 Never (less than 100 in lifetime) Tobacco Use:. Never Smokeless Tobacco Use:. Household tobacco concerns: No., 10/25/2022 Screenings and Assessments 10/21/22 10:20:00 Result Name Value Comment Phone Call Monitoring Consent Agreed to continue call Phone Verification Patient Information Full name, street address and date of verified CM Program Enrollment Provides verbal consent for enrollment Goals and Interventions Care Plan Progress Note TCM#4- Patient states he is doing okay so far today. States he has not had much energy the past few days. Patient notes that on 11/15/22, the truck driving instructor stopped his spironolactone due to decreased kidney function, and is to repeat kidney function tests today. Reports BP 10/08 am 124/56 HR 55, pm 146/59 HR 62. Patient also notes he has only a couple asa left then he will d/c per truck driving instructor previous instruction. Patient denies any further bleeding episodes at this time. Patient BS the last few days were 118, 99, 98, 101. States he is eating and drinking okay. OV with PCP offered and declined at this time, states he would like to wait until blood work completed. Denies any further questions or concerns at this time. Communication Events Date: November 15, 2022 Method: Phone call Type: Inbound Duration (min): 20 Outcome: Case discussion Contact Type: Patient Contact Name: ZAIRA SEGURA III Notes: TCM#4- Patient returned TCM program call, see case summary note. Created By: Shaun Adame Date: November 15, 2022 Method: Phone call Type: Outbound Duration (min): 1 Outcome: Left message-voicemail Contact Type: retail and promotions coordinator Contact Name: Shaun Adame Notes: TCM#4- attemtped to reach patient for tcm program call status update, no answer, left vm for return call. Created By: Shaun Adame Date: November 08, 2022 Method: Phone call Type: Outbound Duration (min): 12 Outcome: Case discussion Contact Type: retail and promotions coordinator Contact Name: Shaun Adame Notes: TCM#3-Spoke with patient for TCM program call status update, see case summary. Created By: Shaun Adame Date: November 01, 2022 Method: Phone call Type: Outbound Duration (min): 8 Outcome: Case discussion Contact Type: retail and promotions coordinator Contact Name: Paola Lacy Notes: TCM #2 see ft summary note. Created By: Paola Lacy Date: October 21, 2022 Method: Phone call Type: Outbound Duration (min): 15 Outcome: Case discussion Contact Type: retail and promotions coordinator Contact Name: Cassi Cohen RN Notes: TCM #1, see FT summary note. Created By: Cassi Cohen RN [facility] 11-09-19 [facility] Case Information Case Priority: None Programs: -- Referral Source: Health Advisor Referral Reason: Care coordination Case Type: Transition Care Management Risk Score: -- Case Status: Enrolled (October 21, 2022) Date Assigned: October 21, 2022 Assigned By: Cassi Cohen RN Date Enrolled: October 21, 2022 Assigned Primary Personnel: Cassi Cohen RN Assigned Secondary Personnel: -- Case Physician: Gilson Salgado MD Ongoing CAD in [place] artery Chronic venous hypertension Hospital discharge follow-up HTN (hypertension) Mixed hyperlipidemia Neurological disorder 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 Home Medications Aldactone 25 mg Tab, 25 mg= 1 tab(s), Oral, Daily aspirin 81 mg Oral EC Tab, 81 mg= 1 tab(s), Oral, Daily BD UF MAIDA PEN NEEDLE [id number] [facility]S ZINC 50 MG TABLET Eliquis 5 mg oral tablet, 5 mg= 1 tab(s), Oral, BID, 3 refills Farxiga 10 mg oral tablet, 10 mg= 1 tab(s), Oral, Daily Handicap Placard, See Instructions Handicap Placard, 5 years., See Instructions HumaLOG KwikPen 100 units/mL injectable solution, See Instructions isosorbide mononitrate 30 mg ER Tab, 30 mg= 1 tab(s), Oral, qAM Lantus Solostar Pen 100 units/mL subcutaneous solution, See Instructions, 1 refills Lipitor 20 mg Tab, 20 mg= 1 tab(s), Oral, Daily losartan 50 mg Tab, See Instructions metoprolol 100 mg ER Tab, 100 mg= 1 tab(s), Oral, Daily pen needles, See Instructions, 1 refills Pen Snow, See Instructions, 1 refills Plavix 75 mg Tab, 75 mg= 1 tab(s), Oral, Daily Allergies niacin (Unknown) Social History Alcohol - Denies Alcohol Use, 04/23/2022 Substance Abuse - Denies Substance Abuse, 04/23/2022 Tobacco - Denies Tobacco Use, 04/23/2022 Never (less than 100 in lifetime) Tobacco Use:. Never Smokeless Tobacco Use:. Household tobacco concerns: No., 10/25/2022 Screenings and Assessments 10/21/22 10:20:00 Result Name Value Comment Phone Call Monitoring Consent Agreed to continue call Phone Verification Patient Information Full name, street address and date of verified CM Program Enrollment Provides verbal consent for enrollment Goals and Interventions Care Plan Progress Note TCM#3- Patient states he is doing okay. States he bit his tongue and bumped his toe. Notes there was quite a bit of blood but has since stopped. He was instructed to d/c asa once RX runs out. Patient reports BP had been running low and c/o some dizziness. Patient was instructed per [facility] cardio this am to decrease losartan to 25 mg daily. Instructed pt to stay well hydrated and change positions slowly, verbalized understanding. BP this am 90/55, HR 64. Patient will notify office if symptoms continue. Per note 11/05 (re BP) patient to schedule OV with PCP; patient declines at this time due to cardio making adjustments to medication. Patient denies any further questions or concerns at this time. Communication Events Date: November 08, 2022 Method: Phone call Type: Outbound Duration (min): 12 Outcome: Case discussion Contact Type: retail and promotions coordinator Contact Name: Shaun Adame Notes: TCM#3-Spoke with patient for TCM program call status update, see case summary. Created By: Shaun Adame Date: November 01, 2022 Method: Phone call Type: Outbound Duration (min): 8 Outcome: Case discussion Contact Type: retail and promotions coordinator Contact Name: Paola Lacy Notes: TCM #2 see ft summary note. Created By: Paola Lacy Date: October 21, 2022 Method: Phone call Type: Outbound Duration (min): 15 Outcome: Case discussion Contact Type: retail and promotions coordinator Contact Name: Cassi Cohen RN Notes: TCM #1, see FT summary note. Created By: Cassi Cohen RN [facility] Orders Onlyon 11-05-2022 Orders Only [id number] Zaira Segura III 1935 M [facility] Provider Department Center 11/05/2022 DESHAUN SANDHU Family History Problem Relation Age of Onset Other Father Heart failure Sister Family Status - Relation Status Age at Father Sister Normal [facility] Telephoneon 11-05-2022 Telephone [id number] Zaira Segura III 1935 M [facility] Provider Department Center 11/05/2022 DESHAUN SANDHU Family History Problem Relation Age of Onset Other Father Heart failure Sister Family Status - Relation Status Age at Father Sister Normal [facility] Home Health Recordson 2022 Home Health Records [id number]:[id number] [facility] Home Health Recordson 2022 Home Health Records [id number]:[id number] [facility] Population Healthon 11-02-19 Population Health Case Information Case Priority: None Programs: -- Referral Source: Health Advisor Referral Reason: Care coordination Case Type: Transition Care Management Risk Score: -- Case Status: Enrolled (October 21, 2022) Date Assigned: October 21, 2022 Assigned By: Cassi Cohen RN Date Enrolled: October 21, 2022 Assigned Primary Personnel: Cassi Cohen RN Assigned Secondary Personnel: -- Case Physician: Gilson Salgado MD Problems Ongoing CAD in [place] artery Chronic venous hypertension Hospital discharge follow-up HTN (hypertension) Mixed hyperlipidemia Neurological disorder 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 Home Medications Aldactone 25 mg Tab, 25 mg= 1 tab(s), Oral, Daily aspirin 81 mg Oral EC Tab, 81 mg= 1 tab(s), Oral, Daily BD UF MAIDA PEN NEEDLE [id number] [facility]S ZINC 50 MG TABLET Eliquis 5 mg oral tablet, 5 mg= 1 tab(s), Oral, BID, 3 refills Farxiga 10 mg oral tablet, 10 mg= 1 tab(s), Oral, Daily Handicap Placard, See Instructions Handicap Placard, 5 years., See Instructions HumaLOG KwikPen 100 units/mL injectable solution, See Instructions isosorbide mononitrate 30 mg ER Tab, 30 mg= 1 tab(s), Oral, qAM Lantus Solostar Pen 100 units/mL subcutaneous solution, See Instructions, 1 refills Lipitor 20 mg Tab, 20 mg= 1 tab(s), Oral, Daily losartan 50 mg Tab, See Instructions metoprolol 100 mg ER Tab, 100 mg= 1 tab(s), Oral, Daily pen needles, See Instructions, 1 refills Pen Snow, See Instructions, 1 refills Plavix 75 mg Tab, 75 mg= 1 tab(s), Oral, Daily Allergies niacin (Unknown) Social History Alcohol - Denies Alcohol Use, 04/23/2022 Substance Abuse - Denies Substance Abuse, 04/23/2022 Tobacco - Denies Tobacco Use, 04/23/2022 Never (less than 100 in lifetime) Tobacco Use:. Never Smokeless Tobacco Use:. Household tobacco concerns: No., 10/25/2022 Screenings and Assessments 10/21/22 10:20:00 Result Name Value Comment Phone Call Monitoring Consent Agreed to continue call Phone Verification Patient Information Full name, street address and date of verified CM Program Enrollment Provides verbal consent for enrollment Goals and Interventions Care Plan Progress Note CN contacted pt. for TCM #2. Pt denies CP and SOB. States that he is feeling pretty good. Had Cariology f/u last week. States it went ok. Expresses frustration that he feels that Dr. is ignoring him and not answering the questions hat are asked. Wanted to know if Dr. felt he would need more stents, and if he would need to remain on all of the medication that is currently being taken for the rest of his life Is also frustrated because he thought that Physical therapy started last week and it doesn't doesn't start until this week, although does admit tat he might have misunderstood when it was to begin.Taking BS daily today it was 107. Has been eating and sleeping well.Denies problems with bowel or bladder.Filled medication prescriptions today. Denies other concerns at this time. Communication Events Date: November 01, 2022 Method: Phone call Type: Outbound Duration (min): 8 Outcome: Case discussion Contact Type: retail and promotions coordinator Contact Name: Paola Lacy Notes: TCM #2 see ft summary note. Created By: Paola Lacy Date: October 21, 2022 Method: Phone call Type: Outbound Duration (min): 15 Outcome: Case discussion Contact Type: retail and promotions coordinator Contact Name: Cassi Cohen RN Notes: TCM #1, see FT summary note. Created By: Cassi Cohen RN [facility] Office Visiton 10-26-2022 Follow-up visit [id number] Zaira Segura III 1935 M Date Provider Department Center 10/26/2022 Annemarie-TARA CARDENAS CARD [facility] Family History Problem Relation Age of Onset Other Father Heart failure Sister Family Status - Relation Status Age at Father Sister Level of Service:[address] [place] OFFICE/OUTPATIENT ESTABLISHED MOD MDM 30-39 MIN Normal [facility] Ambulatory Visit Summaryon 0 10-25-2022 Ambulatory Visit Summary ZAIRA SEGURA III :1935 Visit Date:10/25/2022 Ambulatory Visit Instructions Your Diagnosis Hospital discharge follow-up Paroxysmal A-fib HTN (hypertension) Mixed hyperlipidemia Type 2 diabetes mellitus with hyperglycemia, without long-term current use of insulin Weakness generalized BMI 30.0-30.9,adult Non-smoker Your Care Team Attending Physician - Gilson Salgado MD. Primary Care Physician - Gilson Salgado MD This Is Your Medications List Misc Prescription (BD UF MAIDA PEN NEEDLE [id number]) Misc Prescription ([facility] ZINC 50 MG TABLET) Misc Prescription (Handicap Placard) Misc Prescription (Handicap Placard, 5 years.) Misc Prescription (Pen Snow) Misc Prescription (pen needles) apixaban (Eliquis 5 mg oral tablet) aspirin (aspirin 81 mg Oral EC Tab) atorvastatin (Lipitor 20 mg Tab) clopidogrel (Plavix 75 mg Tab) dapagliflozin (Farxiga 10 mg oral tablet) insulin glargine (Lantus Solostar Pen 100 units/mL subcutaneous solution) insulin lispro (HumaLOG KwikPen 100 units/mL injectable solution) isosorbide mononitrate (isosorbide mononitrate 30 mg ER Tab) losartan (losartan 50 mg Tab) metoprolol (metoprolol 100 mg ER Tab) spironolactone (Aldactone 25 mg Tab) Procedures Performed Cardiac catheter (07/21/2022), Angioplasty, Inguinal hernia, Stent, Surgery. Discharge Vitals Heart Rate (Peripheral) 64 Respiratory Rate 18 Blood Pressure 116/72 Height 182 cm Height 72 in Weight 102.05 kg Weight 224.51 lb BMI 30.81 What to do next Scheduled Follow-Up Appointments Tuesday 8:00 AM EDT Where: [facility] Family Medicine Office/Clini c Noteon 10-25-2022 Family Medicine Office/Clinic Note HPI Staff Zaira is an 87 year old male presenting for hospital discharge follow up [facility] Admitted: 10/13/22 Discharged: 10/19/22 Diagnosis:NSTEMI Treatment: 2 stents done on 10/18/22, pt sees truck driving instructor tomorrow. pt needs refills on Metoprolol and Isosorbide. pt states is feeling better but still feeling weak. Needs renewal for Handicap Placard History of Present Illness - Pt here for TCM - Went in 2/2 N/V but was found to have blockages of the LAD and LCX - Two stents placed - Pt declined Bypass - IN wheelchair today 2/2 weakness. - No CP today - Sees Cardiology tomorrow. Review of Systems PHQ Score Initial Depression Screen Score: 0 Physical Exam Vitals & Measurements HR: 64(Peripheral) RR: 18 BP: 116/72 SpO2: 95% HT: 72 in HT: 182 cm WT: 102.05 kg WT: 224.51 lb BMI: 30.81 General: alert, no acute distress ENMT: oral mucosa moist, Cardiovascular: regular rate and rhythm, normal peripheral perfusion Respiratory: Lungs CTA, respirations non labored Extremities: no deformity, no trauma Neurological: oriented x 4, LOC appropriate for age, CN II-XII intact, motor strength equal & normal bilaterally, speech normal In a wheelchair today. Abdomen: Soft, Nontender, Non-distended, + BS Assessment/Plan 1. Hospital discharge follow-up (Z09: Encounter for follow-up examination after completed treatment for conditions other than malignant neoplasm) - Reviewed TCM - Revieved D/C summary 2. 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 - S/P 2 stents - Medications reviewed 3. Paroxysmal A-fib (I48.0: Paroxysmal atrial fibrillation) - NSR today - NO issues - Follow up with cardiology 4. HTN (hypertension) (I10: Essential (primary) hypertension) - Stable. - Follow up with Cardiology 5. Mixed hyperlipidemia (E78.2: Mixed hyperlipidemia) - Continue on a statin 6. Type 2 diabetes mellitus with hyperglycemia, without long-term current use of insulin (E11.65: Type 2 diabetes mellitus with hyperglycemia) - At goal for his age. - Continue as before. 7. Weakness generalized (R53.1: Weakness) - Will do a handicap placard [facility] Handicap Placard, 5 years., See Instructions, 1 EA, 0, Handicap Placard, 5 years., Supply 8. BMI 30.0-30.9,adult (Z68.30: Body mass index [BMI] 30.0-30.9, adult) - BMI education uploaded 9. 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 Medications Aldactone 25 mg Tab, 25 mg= 1 tab(s), Oral, Daily aspirin 81 mg Oral EC Tab, 81 mg= 1 tab(s), Oral, Daily BD UF MAIDA PEN NEEDLE [id number] [facility]S ZINC 50 MG TABLET Eliquis 5 mg oral tablet, 5 mg= 1 tab(s), Oral, BID, 3 refills Farxiga 10 mg oral tablet, 10 mg= 1 tab(s), Oral, Daily Handicap Placard, See Instructions Handicap Placard, 5 years., See Instructions HumaLOG KwikPen 100 units/mL injectable solution, See Instructions isosorbide mononitrate 30 mg ER Tab, 30 mg= 1 tab(s), Oral, qAM Lantus Solostar Pen 100 units/mL subcutaneous solution, See Instructions, 1 refills Lipitor 20 mg Tab, 20 mg= 1 tab(s), Oral, Daily losartan 50 mg Tab, See Instructions metoprolol 100 mg ER Tab, 100 mg= 1 tab(s), Oral, Daily pen needles, See Instructions, 1 refills Pen Snow, See Instructions, 1 refills Plavix 75 mg Tab, 75 mg= 1 tab(s), Oral, Daily Allergies niacin (Unknown) Social History Alcohol - Denies Alcohol Use, 04/23/2022 Substance Abuse - Denies Substance Abuse, 04/23/2022 Tobacco - Denies Tobacco Use, 04/23/2022 Never (less than 100 in lifetime) Tobacco Use:. Never Smokeless Tobacco Use:. Household tobacco concerns: No., 10/25/2022 Immunizations Vaccine Date Status Comments pneumococcal 20-valent conjugate vaccine 01/04/2022 Recorded SARS-CoV-2 (COVID-19) [id number] 01/04/2022 Recorded SARS-CoV-2 (COVID-19) mRNA BNT-162b2 vax 12/08/2020 Recorded 2022-04-19: [id number] SARS-CoV-2 (COVID-19) mRNA BNT-162b2 vax 06/04/2020 Recorded SARS-CoV-2 (COVID-19) mRNA BNT-162b2 vax 05/14/2020 Recorded Normal [facility] Comment on above: Result Comment: Elec tronically Signed By: Dipesh PABLO, Gilson Russo.br\Date and Time Signed: 10/25/22 08:12 EDT Home Health Recordson 2022 Home Health Records [id number] 0CD:127 Normal [facility] Patient Educationon 10-26-19 Patient Education Cardiovascular Hypertension, Adult High blood pressure (hypertension) is when the force of blood pumping through the arteries is too strong. The arteries are the blood vessels that carry blood from the heart throughout the body. Hypertension forces the heart to work harder to pump blood and may cause arteries to become narrow or stiff. Untreated or uncontrolled hypertension can lead to a heart attack, heart failure, a stroke, kidney disease, and other problems. A blood pressure reading consists of a higher number over a lower number. Ideally, your blood pressure should be below 120/80. The first ( top ) number is called the systolic pressure. It is a measure of the pressure in your arteries as your heart beats. The second ( bottom ) number is called the diastolic pressure. It is a measure of the pressure in your arteries as the heart relaxes. What are the causes? The exact cause of this condition is not known. There are some conditions that result in high blood pressure. What increases the risk? Certain factors may make you more likely to develop high blood pressure. Some of these risk factors are under your control, including: ? Smoking. ? Not getting enough exercise or physical activity. ? Being overweight. ? Having too much fat, sugar, calories, or salt (sodium) in your diet. ? Drinking too much alcohol. Other risk factors include: ? Having a personal history of heart disease, diabetes, high cholesterol, or kidney disease. ? Stress. ? Having a family history of high blood pressure and high cholesterol. ? Having obstructive sleep apnea. ? Age. The risk increases with age. What are the signs or symptoms? High blood pressure may not cause symptoms. Very high blood pressure (hypertensive crisis) may cause: ? Headache. ? Fast or irregular heartbeats (palpitations). ? Shortness of breath. ? Nosebleed. ? Nausea and vomiting. ? Vision changes. ? Severe chest pain, dizziness, and seizures. How is this diagnosed? This condition is diagnosed by measuring your blood pressure while you are seated, with your arm resting on a flat surface, your legs uncrossed, and your feet flat on the floor. The cuff of the blood pressure monitor will be placed directly against the skin of your upper arm at the level of your heart. Blood pressure should be measured at least twice using the same arm. Certain conditions can cause a difference in blood pressure between your right and left arms. If you have a high blood pressure reading during one visit or you have normal blood pressure with other risk factors, you may be asked to: ? Return on a different day to have your blood pressure checked again. ? Monitor your blood pressure at home for 1 week or longer. If you are diagnosed with hypertension, you may have other blood or imaging tests to help your health care provider understand your overall risk for other conditions. How is this treated? This condition is treated by making healthy lifestyle changes, such as eating healthy foods, exercising more, and reducing your alcohol intake. You may be referred for counseling on a healthy diet and physical activity. Your health care provider may prescribe medicine if lifestyle changes are not enough to get your blood pressure under control and if: ? Your systolic blood pressure is above 130. ? Your diastolic blood pressure is above 80. Your personal target blood pressure may vary depending on your medical conditions, your age, and other factors. Follow these instructions at home: Eating and drinking ? Eat a diet that is high in fiber and potassium, and low in sodium, added sugar, and fat. An example of this eating plan is called the DASH diet. DASH stands for Dietary Approaches to Stop Hypertension. To eat this way: ? Eat plenty of fresh fruits and vegetables. Try to fill one half of your plate at each meal with fruits and vegetables. ? Eat whole grains, such as whole-wheat pasta, brown rice, or whole-grain bread. Fill about one fourth of your plate with whole grains. ? Eat or drink low-fat dairy products, such as skim milk or low-fat yogurt. ? Avoid fatty cuts of meat, processed or cured meats, and poultry with skin. Fill about one fourth of your plate with lean proteins, such as fish, chicken without skin, beans, eggs, or tofu. ? Avoid pre-made and processed foods. These tend to be higher in sodium, added sugar, and fat. ? Reduce your daily sodium intake. Many people with hypertension should eat less than 1,500 mg of sodium a day. ? Do not drink alcohol if: ? Your health care provider tells you not to drink. ? You are , may be , or are planning to become . ? If you drink alcohol: ? Limit how much you have to: ? 0?1 drink a day for women. ? 0?2 drinks a day for men. ? Know how much alcohol is in your drink. In the [place] one drink equals one 12 oz bottle of beer (355 mL), one 5 oz glass of wine (148 mL), or one 1? oz glass (more content not included)... Normal [facility] 10-22-19 [facility] Case Information Case Priority: None Programs: -- Referral Source: Health Advisor Referral Reason: Care coordination Case Type: Transition Care Management Risk Score: -- Case Status: Enrolled (October 21, 2022) Date Assigned: October 21, 2022 Assigned By: Cassi Cohen RN Date Enrolled: October 21, 2022 Assigned Primary Personnel: Cassi Cohen RN Assigned Secondary Personnel: -- Case Physician: Gilson Salgado MD Problems Ongoing Chronic venous hypertension Diabetes HTN (hypertension) Mixed hyperlipidemia Neurological disorder 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 Home Medications Aldactone 25 mg Tab, 25 mg= 1 tab(s), Oral, Daily aspirin 81 mg Oral EC Tab, 81 mg= 1 tab(s), Oral, Daily BD UF MAIDA PEN NEEDLE [id number] [facility] ZINC 50 MG TABLET Eliquis 5 mg oral tablet, 5 mg= 1 tab(s), Oral, BID, 3 refills Farxiga 10 mg oral tablet, 10 mg= 1 tab(s), Oral, Daily Handicap Placard, See Instructions HumaLOG KwikPen 100 units/mL injectable solution, See Instructions isosorbide mononitrate 30 mg ER Tab, 30 mg= 1 tab(s), Oral, qAM ketorolac Opth 0.5% Catherine Lantus Solostar Pen 100 units/mL subcutaneous solution, See Instructions, 1 refills Lipitor 20 mg Tab, 20 mg= 1 tab(s), Oral, Daily losartan 50 mg Tab, See Instructions magnesium oxide 400 mg Tab metoprolol 100 mg ER Tab, 100 mg= 1 tab(s), Oral, Daily pen needles, See Instructions, 1 refills Pen Snow, See Instructions, 1 refills Plavix 75 mg Tab, 75 mg= 1 tab(s), Oral, Daily Allergies Vitamins (Unknown) niacin (Unknown) Social History Alcohol - Denies Alcohol Use, 04/23/2022 Substance Abuse - Denies Substance Abuse, 04/23/2022 Tobacco - Denies Tobacco Use, 04/23/2022 Never (less than 100 in lifetime) Tobacco Use:. Never Smokeless Tobacco Use:., 06/08/2022 Screenings and Assessments 10/21/22 10:20:00 Result Name Value Comment Phone Call Monitoring Consent Agreed to continue call Phone Verification Patient Information Full name, street address and date of verified CM Program Enrollment Provides verbal consent for enrollment Goals and Interventions Care Plan Progress Note Admit Date: 10/13/22 KRISTINE Webb Date of Discharge: 10/19/22 Follow-up appointment scheduled? yes, 10/25/[address] Salgado Did you understand your discharge instructions? yes Are you able to follow them? yes Did you receive new medications? yes, ASA 81 mg, Plavix 75 mg daily, Farxiga 10 mg daily, Aldactone 25 mg daily, decrease Lipitor 20 mg qhs, Stop Zetia, Pepcid and Klor-Con Have you filled the Rx's? yes Are you taking them as prescribed? trying to Are you having difficulty eating or swallowing your pills? no Are you having any stomach upset, diarrhea or constipation? no How are you sleeping? good Are you having any pain? no Do you have everything you need at home to care for yourself? yes Do you have Home Health? yes, [facility] [place] [facility] Called patient for Transitional Care Management following hospitalization at [facility] for Chest pain, NSTEMI had 2 stents placed and EF=37%. Reviewed discharge instructions and attempted to reconcile medications with patient. Patient states names on bottles are too tiny to read, used Magnifying glass and with assistance of sister he believes he is taking them correctly. Patient will bring list and medications bottles to office appointment for review. Patient has HH nurse coming at 1430 today, asked that patient has RN call CCN to confirm medication in home. Patient states heart catheterization site was right groin, complains of bruising but denies any drainage. Patient FBS 89 this morning, patient checks TID. Patient would like to have assistance with calorie count and carbohydrate amount that he is supposed to eat. Advised CCN would ask Dr. Salgado for Diabetic Education referral. Patient denies any complaints of chest pain, pressure or SOB, denies any swelling in lower extremities. Patient complains of urinating every 2 hours since getting home from hospital, explained may be due to taking the Aldactone and the extra fluids given by IV inpatient, advised to discuss with Dr. Salgado on 10/25/22 if still having concerns. Patient lives alone, states he feels he has what he needs to take care of himself, once his medications are straightened around for him. TCM services explained to patient and direct phone number given. Communication Events Date: October 21, 2022 Method: Phone call Type: Outbound Duration (min): 15 Outcome: Case discussion Contact Type: retail and promotions coordinator Contact Name: Cassi Cohen RN Notes: TCM #1, see FT s (more content not included)... Normal [facility] ED [facility] [id number] CD:127 Normal [facility] 30on 10-19-2022 30 The patient is Moderately Stable - Low risk of patient condition declining or worsening The patient's goals for the shift include 02 test The clinical goals for the shift include vss Over the shift, the patient did not make progress toward the following goals. Barriers to progression include . Recommendations to address these barriers include . Normal [facility] 30 The patient is Moderately Stable - Low risk of patient condition declining or worsening The patient's goals for the shift include comfort The clinical goals for the shift include VSS Over the shift, the patient did not make progress toward the following goals. Barriers to progression include . Recommendations to address these barriers include . Normal [facility] 30 The patient is Moderately Stable - Low risk of patient condition declining or worsening The patient's goals for the shift include comfort The clinical goals for the shift include VSS Normal [facility] BASIC METABOLIC PANELon 10-08 Anion gap [Moles/Vol] 9 mmol/L Normal 7-20 [facility] Comment on above: Performed By: #### L [id number] ####[facility] ([facility] [place] [address] Calcium [Mass/Vol] 8.9 mg/dL Normal 8.6-10.3 [facility] Comment on above: Performed By: #### L [id number] ####[facility] ([facility])[address] [place] [address] Chloride [Moles/Vol] 106 mmol/L Normal 98-107 [facility] Comment on above: Performed By: #### L [id number] ####[facility] (BEAKER)[address] [place] [address] CO2 [Moles/Vol] 26 mmol/L Normal 21-[address] [facility] Comment on above: Performed By: #### L [id number] ####[facility] (BEAKER)[address] [place] [address] Creatinine [Mass/Vol] 1.38 mg/dL High 0.70-1.30 [facility] Comment on above: Performed By: #### L [id number] ####[facility] ([facility])[address] [place] [address] GLOMERULAR FILTRATION RATE ML/MIN/1.73 SQ M.PREDICTED 50.1 mL/min/1.73m*2 Low >60.0 [facility] Comment on above: Result Comment: The [facility]???s estimated glomerular filtration rate (eGFR) will no longer include consideration of race in its calculation. The National Kidney Foundation???s eGFR Task Force developed new recommendations for the estimation of the glomerular filtration rate in the [place] They recommend immediate implementation of the new equation refit without the race variable in all laboratories because the calculation does not include race. In addition to not including race in the calculation and reporting, it included diversity in its development, and has acceptable performance characteristics and potential consequences that do not disproportionately affect any one group of individuals. Performed By: #### L [id number] ####[facility] ([facility])[address] [place] [address] Glucose [Mass/Vol] 155 mg/dL High 70-100 [facility] Comment on above: Performed By: #### L [id number] ####[facility] ([facility])[address] [facility] [address] Potassium [Moles/Vol] 4.1 mmol/L Normal 3.5-5.1 [facility] Comment on above: Performed By: #### L [id number] ####[facility] ([facility])[address] [place] [address] Sodium [Moles/Vol] 137 mmol/L Normal 136-145 [facility] Comment on above: Performed By: #### L [id number] ####[facility] ([facility])[address] [place] [address] Urea nitrogen [Mass/Vol] 25 mg/dL Normal 7-25 [facility] Comment on above: Performed By: #### L [id number] ####[facility] ([facility])[address] [address] UREA NITROGEN/CREATININE (MASS RATIO) IN SER/PLAS 18.1 Normal [facility] Comment on above: Performed By: #### L [id number] ####[facility] ([facility])[address] [place] [address] CBCon 10-19-2022 Erythrocyte distribution width (RBC) [Ratio] 13.0 % Normal 11.5-15.0 [facility] Comment on above: Performed By: #### L [id number] ####[facility] (BEAKER)[address] [place] [address] ERYTHROCYTE MEAN CORPUSCULAR HEMOGLOBIN CONCENTRATION (G/DL) BY AUTOMATED 33.6 g/dL Normal 32.0-35.0 [facility] Comment on above: Performed By: #### L [id number] ####[facility] (BEAKER)[address] [place] [address] Hematocrit (Bld) [Volume fraction] 36.0 % Low 39.0-55.0 [facility] Comment on above: Performed By: #### L [id number] ####[facility] (BEAKER)[address] [place] [address] Hemoglobin (Bld) [Mass/Vol] 12.1 g/dL Low 13.0-17.0 [facility] Comment on above: Performed By: #### L [id number] ####[facility] (BEAKER)[address] [place] [address] IMMATURE PLATELET FRACTION % 4.2 % Normal 0.8-6.3 [facility] Comment on above: Performed By: #### L [id number] ####[facility] (BEAKER)[address] [place] [address] MCH (RBC) [Entitic mass] 30.2 pg Normal 27.0-33.0 [facility] Comment on above: Performed By: #### L [id number] ####[facility] (BEAKER)[address] [place] [address] MCV (RBC) [Entitic vol] 89.8 fL Normal 82.0-98.0 [facility] Comment on above: Performed By: #### L [id number] ####[facility] (BEAKER)[address] [place] [address] PLATELETS (10*3/UL) IN BLOOD AUTOMATED COUNT 121 10*3/uL Low 150-400 [facility] Comment on above: Performed By: #### L [id number] ####[facility] (BEAKER)[address] [place] [address] RBC (Bld) [#/Vol] 4.01 10*6/uL Low 4.20-5.70 [facility] Comment on above: Performed By: #### L [id number] ####[facility] ([facility])[address] [place] [address] WBC (Bld) [#/Vol] 7.45 10*3/uL Normal 4.00-10.60 [facility] Comment on above: Performed By: #### L [id number] ####[facility] ([facility])[address] [place] [address] MAGNESIUMon 10-19-2022 Magnesium [Mass/Vol] 1.7 mg/dL Low 1.9-2.7 [facility] Comment on above: Performed By: #### L [id number] ####[facility] ([facility])[address] [place] [address] POCT GLUCOSE METER UNSOLICIT ED RESULTSon 10-19-2022 Glucose [Mass/Vol] 130 mg/dL High 70-105 [facility] Comment on above: Order Comment: Waive d Testing in the ED is performed under the ED CLIA certificate #[id number]. Result Comment: atru ss Performed By: #### L [id number] ####[facility] ([facility])[address] [place] [address] 30on 10-18-2022 30 Daily Case Managemen t Update Multidisciplinary rounds have been completed. Barriers to Discharge: Cath w/ PCI scheduled for today. Will discharge home with [facility] when medically ready. Diet: Dietary Orders (From admission, onward) Start Ordered 10/18/221052 Diet NPO Diet effective now Comments: No exceptions NOW Question: Reason for NPO: Answer: Operation/Procedure 10/18/22 1054 10/17/22 174 Special Kitchen Request Once Comments: Patient is requesting the old fashioned hot turkey sandwhich whipped potatoes, vanilla pudding, and sugar free hot chocolate please 10/17/22 1745 10/17/22 1223 Special Kitchen Request Once Comments: Patient requesting meat loaf with mashed potatoes and gravy, peas, and sugar free hot chocolate. Thank you! 10/17/22 1224 10/17/22 1000 Special Kitchen Request Once Comments: Patient is requesting a Raspberry swazi roll, omelet with green peppers, onions, jordanian cheese, sausage, and apple juice please 10/17/22 1000 10/16/22 1723 Special Kitchen Request Once Comments: Please send meatloaf with mashed potatoes and gravy, chocolate pudding, peas, and sugar free hot chocolate. Thank you! 10/16/22 1724 10/14/22 1716 Special Kitchen Request Once Comments: Please send a sugar free chocolate pudding for dessert. Thanks 10/14/22 1716 10/14/22 1125 Special Kitchen Request Once Comments: Please send chicken noodle soup, mashed sweet potato with butter, and a decaf iced tea. Thanks 10/14/22 1129 10/14/22 0935 Special Kitchen Request Once Comments: Please send rice krispies with milk, fruit cup, and a cranberry juice. Thanks 10/14/22 0935 Physician Expected Discharge Date: 10/18/2022 Discharge Delays: PT Six Click Score: 21 OT Six Click Score: 21 PT Recommendations: Home PT OT Recommendations: Home New Consults: Therapy Orders (From admission, onward) Start Ordered 10/14/22 0856 PT eval and treat Until therapy completed Question: Reason for PT? Answer: balance issues 10/14/22 0855 10/14/22 0856 OT eval and treat Until therapy completed Question: Reason for OT? Answer: balance issues 10/14/22 0855 Normal [facility] 30 The patient is Moderately Stable - Low risk of patient condition declining or worsening The patient's goals for the shift include comfort The clinical goals for the shift include VSS Problem: Safety - Adult Goal: Free from fall injury Outcome: Progressing Problem: Pain - Adult Goal: Verbalizes/displays adequate comfort level or baseline comfort level Outcome: Progressing Normal [facility] Narciso 10-18-2022 ANES Patient: Zaira payne III Choose an anesthesia record to view details Clinical information reviewed: Allergies Meds Physical Exam Airway Mallampati: III Neck ROM: full Cardiovascular Rhythm: regular Rate: normal Dental Pulmonary Breath sounds clear to auscultation Abdominal Abdomen: soft Bowel sounds: normal Anesthesia Plan ASA 3 other (Conscious Sedation ) Anesthetic plan and risks discussed with patient. Use of blood products discussed with patient who consented to blood products. Additional Equipment Requests Normal [facility] APTTon 10-18-2022 ACTIVATED PARTIAL THROMBOPLASTIN TIME IN PPP BY COAGULATION ASSAY 80.9 Seconds High 25.0-35.0 [facility] Comment on above: Result Comment: Clin ical significance of the APTT is questionable in the presence of heparin. Performed By: #### L [id number] ####[facility] [place] [address] BASIC METABOLIC PANELon 10-08 Anion gap [Moles/Vol] 12 mmol/L Normal 7-20 [facility] Comment on above: Performed By: #### L [id number] ####[facility] ([facility] [place] [address] Calcium [Mass/Vol] 8.9 mg/dL Normal 8.6-10.3 [facility] Comment on above: Performed By: #### L [id number] ####[facility] (BEAKER)[address] [place] [address] Chloride [Moles/Vol] 107 mmol/L Normal 98-107 [facility] Comment on above: Performed By: #### L [id number] ####[facility] ([facility])[address] [place] [address] CO2 [Moles/Vol] 24 mmol/L Normal 21-[address] [facility] Comment on above: Performed By: #### L [id number] ####[facility] ([facility])[address] [place] [address] Creatinine [Mass/Vol] 1.47 mg/dL High 0.70-1.30 [facility] Comment on above: Performed By: #### L [id number] ####[facility] ([facility])[address] [place] [address] GLOMERULAR FILTRATION RATE ML/MIN/1.73 SQ M.PREDICTED 46.5 mL/min/1.73m*2 Low >60.0 [facility] Comment on above: Result Comment: The [facility]???s estimated glomerular filtration rate (eGFR) will no longer include consideration of race in its calculation. The National Kidney Foundation???s eGFR Task Force developed new recommendations for the estimation of the glomerular filtration rate in the [place] They recommend immediate implementation of the new equation refit without the race variable in all laboratories because the calculation does not include race. In addition to not including race in the calculation and reporting, it included diversity in its development, and has acceptable performance characteristics and potential consequences that do not disproportionately affect any one group of individuals. Performed By: #### L [id number] ####[facility] ([facility])[address] [place] [address] Glucose [Mass/Vol] 156 mg/dL High 70-100 [facility] Comment on above: Performed By: #### L [id number] ####[facility] ([facility])[address] [place] [address] Potassium [Moles/Vol] 3.8 mmol/L Normal 3.5-5.1 [facility] Comment on above: Performed By: #### L [id number] ####[facility] ([facility])[address] [place] [address] Sodium [Moles/Vol] 139 mmol/L Normal 136-145 [facility] Comment on above: Performed By: #### L [id number] ####[facility] ([facility])[address] [place] [address] Urea nitrogen [Mass/Vol] 30 mg/dL High 7-25 [facility] Comment on above: Performed By: #### L [id number] ####[facility] ([facility])[address] [place] [address] UREA NITROGEN/CREATININE (MASS RATIO) IN SER/PLAS 20.4 Normal [facility] Comment on above: Performed By: #### L [id number] ####[facility] [place] [address] CBCon 10-18-2022 Erythrocyte distribution width (RBC) [Ratio] 12.9 % Normal 11.5-15.0 [facility] Comment on above: Performed By: #### L [id number] ####[facility] ([facility])[address] [place] [address] ERYTHROCYTE MEAN CORPUSCULAR HEMOGLOBIN CONCENTRATION (G/DL) BY AUTOMATED 33.0 g/dL Normal 32.0-35.0 [facility] Comment on above: Performed By: #### L [id number] ####[facility] ([facility])[address] [place] [address] Hematocrit (Bld) [Volume fraction] 36.4 % Low 39.0-55.0 [facility] Comment on above: Performed By: #### L [id number] ####[facility] ([facility])[address] [place] [address] Hemoglobin (Bld) [Mass/Vol] 12.0 g/dL Low 13.0-17.0 [facility] Comment on above: Performed By: #### L [id number] ####[facility] ([facility])[address] [place], [place] [address] IMMATURE PLATELET FRACTION % 4.5 % Normal 0.8-6.3 [facility] Comment on above: Performed By: #### L [id number] ####[facility] ([facility])[address] [place] [address] MCH (RBC) [Entitic mass] 29.6 pg Normal 27.0-33.0 [facility] Comment on above: Performed By: #### L [id number] ####[facility] [place] [address] MCV (RBC) [Entitic vol] 89.9 fL Normal 82.0-98.0 [facility] Comment on above: Performed By: #### L [id number] ####[facility] [place] [address] PLATELETS (10*3/UL) IN BLOOD AUTOMATED COUNT 115 10*3/uL Low 150-400 [facility] Comment on above: Performed By: #### L [id number] ####[facility] ([facility])[address] [place] [address] RBC (Bld) [#/Vol] 4.05 10*6/uL Low 4.20-5.70 [facility] Comment on above: Performed By: #### L [id number] ####[facility] ([facility])[address] [place] [address] WBC (Bld) [#/Vol] 7.36 10*3/uL Normal 4.00-10.60 [facility] Comment on above: Performed By: #### L [id number] ####[facility] ([facility])[address] [place] [address] HPon 10-18-2022 HP H&P reviewed. The patient was examined and there are no changes to the H&P. Mr. Segura, an 87 year old male patient, admitted for NSTEMI management. 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 EF was estimated at 37%. The patient declined CABG surgery and was started on medical management. Patient is scheduled for PCI with atherectomy and IVUS via femoral access. Normal [facility] MAGNESIUMon 10-18-2022 Magnesium [Mass/Vol] 1.5 mg/dL Low 1.9-2.7 [facility] Comment on above: Performed By: #### L [id number] ####[facility] ([facility])[address] [place] [address] POCT GLUCOSE METER UNSOLICIT ED RESULTSon 10-18-2022 Glucose [Mass/Vol] 111 mg/dL High 70-105 [facility] Comment on above: Order Comment: Waive d Testing in the ED is performed under the ED CLIA certificate #[id number]. Result Comment: atru ss Performed By: #### L [id number] ####[facility] ([facility])[address] [place] [address] Glucose [Mass/Vol] 133 mg/dL High 70-105 [facility] Comment on above: Order Comment: Waive d Testing in the ED is performed under the ED CLIA certificate #[id number]. Result Comment: [email or web address] Performed By: #### L [id number] ####[facility] ([facility]ER)[address] [place] [address] Glucose [Mass/Vol] 169 mg/dL High 70-105 [facility] Comment on above: Order Comment: Waive d Testing in the ED is performed under the ED CLIA certificate #[id number]. Result Comment: [email or web address] Performed By: #### L [id number] ####[facility] ([facility])[address] [place] [address] Glucose [Mass/Vol] 151 mg/dL High 70-105 [facility] Comment on above: Order Comment: Waive d Testing in the ED is performed under the ED CLIA certificate #[id number]. Result Comment: [email or web address] Performed By: #### L [id number] ####[facility] ([facility])[address] [place] [address] 30on 10-17-2022 30 Problem: Pain - Adul t Goal: Verbalizes/displays adequate comfort level or baseline comfort level Outcome: Progressing Problem: Safety - Adult Goal: Free from fall injury Outcome: Progressing Flowsheets (Taken 10/17/2022799) Free from fall injury: Assess patient frequently for physical needs Identify cognitive and physical deficits and behaviors that affect risk of falls [place] fall precautions as indicated by assessment Educate patient/family on patient safety, including physical limitations Instruct patient to call for assistance with activity based on assessment Modify environment to reduce risk of injury Problem: Discharge Planning Goal: Discharge to home or other facility with appropriate resources Outcome: Progressing Problem: Chronic Conditions and Co-morbidities Goal: Patient's chronic conditions and co-morbidity symptoms are monitored and maintained or improved Outcome: Progressing Flowsheets (Taken 10/17/2022 08) Care Plan - Patient's Chronic Conditions and Co-Morbidity Symptoms are Monitored and Maintained or Improved: Monitor and assess patient's chronic conditions and comorbid symptoms for stability, deterioration, or improvement Collaborate with multidisciplinary team to address chronic and comorbid conditions and prevent exacerbation or deterioration The patient is Moderately Stable - Low risk of patient condition declining or worsening The patient's goals for the shift include comfort and rest The clinical goals for the shift include VSS Normal [facility] 30 The patient is Moderately Stable - Low risk of patient condition declining or worsening The patient's goals for the shift include comfort and rest The clinical goals for the shift include VSS Over the shift, the patient did make progress toward the following goals. Problem: Safety - Adult Goal: Free from fall injury Outcome: Progressing Flowsheets (Taken 10/16/20220) Free from fall injury: Assess patient frequently for physical needs [place] fall precautions as indicated by assessment Educate patient/family on patient safety, including physical limitations Instruct patient to call for assistance with activity based on assessment Problem: Pain - Adult Goal: Verbalizes/displays adequate comfort level or baseline comfort level Outcome: Progressing Normal [facility] APTTon 10-17-2022 ACTIVATED PARTIAL THROMBOPLASTIN TIME IN PPP BY COAGULATION ASSAY 84.0 Seconds High 25.0-35.0 [facility] Comment on above: Result Comment: Clin ical significance of the APTT is questionable in the presence of heparin. Performed By: #### L [id number] ####[facility] ([facility])[address] [place] [address] BASIC METABOLIC PANELon 10-08 Anion gap [Moles/Vol] 8 mmol/L Normal 7-20 [facility] Comment on above: Performed By: #### L [id number] ####[facility] ([facility])[address] [place] [address] Calcium [Mass/Vol] 9.4 mg/dL Normal 8.6-10.3 [facility] Comment on above: Performed By: #### L [id number] ####[facility] ([facility])[address] [place] [address] Chloride [Moles/Vol] 102 mmol/L Normal 98-107 [facility] Comment on above: Performed By: #### L [id number] ####[facility] ([facility])[address] [place] [place] [address] CO2 [Moles/Vol] 31 mmol/L Normal 21-[address] [facility] Comment on above: Performed By: #### L [id number] ####[facility] ([facility])[address] [place] [address] Creatinine [Mass/Vol] 1.53 mg/dL High 0.70-1.30 [facility] Comment on above: Performed By: #### L [id number] ####[facility] ([facility])[address] [place] [address] GLOMERULAR FILTRATION RATE ML/MIN/1.73 SQ M.PREDICTED 44.3 mL/min/1.73m*2 Low >60.0 [facility] Comment on above: Result Comment: The [facility]???s estimated glomerular filtration rate (eGFR) will no longer include consideration of race in its calculation. The National Kidney Foundation???s eGFR Task Force developed new recommendations for the estimation of the glomerular filtration rate in the [place] They recommend immediate implementation of the new equation refit without the race variable in all laboratories because the calculation does not include race. In addition to not including race in the calculation and reporting, it included diversity in its development, and has acceptable performance characteristics and potential consequences that do not disproportionately affect any one group of individuals. Performed By: #### L [id number] ####[facility] ([facility])[address] [place] [address] Glucose [Mass/Vol] 160 mg/dL High 70-100 [facility] Comment on above: Performed By: #### L [id number] ####[facility] ([facility])[address] [place] [address] Potassium [Moles/Vol] 4.0 mmol/L Normal 3.5-5.1 [facility] Comment on above: Performed By: #### L [id number] ####[facility] ([facility])[address] [place] [address] Sodium [Moles/Vol] 137 mmol/L Normal 136-145 [facility] Comment on above: Performed By: #### L [id number] ####[facility] ([facility]ER)[address] [place] [address] Urea nitrogen [Mass/Vol] 28 mg/dL High 7-25 [facility] Comment on above: Performed By: #### L [id number] ####[facility] [place] [address] UREA NITROGEN/CREATININE (MASS RATIO) IN SER/PLAS 18.3 Normal [facility] Comment on above: Performed By: #### L [id number] ####[facility] [place] [address] CBCon 10-17-2022 Erythrocyte distribution width (RBC) [Ratio] 12.9 % Normal 11.5-15.0 [facility] Comment on above: Performed By: #### L [id number] ####[facility] ([facility])[address] [place], [place] [address] ERYTHROCYTE MEAN CORPUSCULAR HEMOGLOBIN CONCENTRATION (G/DL) BY AUTOMATED 33.5 g/dL Normal 32.0-35.0 [facility] Comment on above: Performed By: #### L [id number] ####[facility] [place], [place] [address] Hematocrit (Bld) [Volume fraction] 38.5 % Low 39.0-55.0 [facility] Comment on above: Performed By: #### L [id number] ####[facility] ([facility])[address] [place], [place] [address] Hemoglobin (Bld) [Mass/Vol] 12.9 g/dL Low 13.0-17.0 [facility] Comment on above: Performed By: #### L [id number] ####[facility] ([facility])[address] [place] [address] IMMATURE PLATELET FRACTION % 4.0 % Normal 0.8-6.3 [facility] Comment on above: Performed By: #### L [id number] ####[facility] ([facility])[address] [place] [address] MCH (RBC) [Entitic mass] 30.1 pg Normal 27.0-33.0 [facility] Comment on above: Performed By: #### L [id number] ####[facility] ([facility])[address] [place] [address] MCV (RBC) [Entitic vol] 89.7 fL Normal 82.0-98.0 [facility] Comment on above: Performed By: #### L [id number] ####[facility] ([facility])[address] [place] [address] PLATELETS (10*3/UL) IN BLOOD AUTOMATED COUNT 111 10*3/uL Low 150-400 [facility] Comment on above: Performed By: #### L [id number] ####[facility] ([facility])[address] [place] [address] RBC (Bld) [#/Vol] 4.29 10*6/uL Normal 4.20-5.70 [facility] Comment on above: Performed By: #### L [id number] ####[facility] ([facility])[address] [place] [address] WBC (Bld) [#/Vol] 8.26 10*3/uL Normal 4.00-10.60 [facility] Comment on above: Performed By: #### L [id number] ####[facility] ([facility])[address] [place] [address] POCT GLUCOSE METER UNSOLICIT ED RESULTSon 10-17-2022 Glucose [Mass/Vol] 219 mg/dL High 70-105 [facility] Comment on above: Order Comment: Waive d Testing in the ED is performed under the ED CLIA certificate #[id number]. Result Comment: [email or web address] Performed By: #### L [id number] ####[facility] ([facility])[address] [place] [address] Glucose [Mass/Vol] 178 mg/dL High 70-105 [facility] Comment on above: Order Comment: Waive d Testing in the ED is performed under the ED CLIA certificate #[id number]. Result Comment: [email or web address] Performed By: #### L [id number] ####[facility] ([facility]ER)[address] [place] [address] Glucose [Mass/Vol] 187 mg/dL High 70-105 [facility] Comment on above: Order Comment: Waive d Testing in the ED is performed under the ED CLIA certificate #[id number]. Result Comment: [email or web address] Performed By: #### L [id number] ####[facility] ([facility])[address] [place] [address] Glucose [Mass/Vol] 157 mg/dL High 70-105 [facility] Comment on above: Order Comment: Waive d Testing in the ED is performed under the ED CLIA certificate #[id number]. Result Comment: [email or web address] Performed By: #### L [id number] ####[facility] ([facility])[address] [place] [address] 30on 10-16-2022 30 Problem: Pain - Adul t Goal: Verbalizes/displays adequate comfort level or baseline comfort level Outcome: Progressing Flowsheets (Taken 10/16/2022 0854) Verbalizes/displays adequate comfort level or baseline comfort level: Assess pain using appropriate pain scale Encourage patient to monitor pain and request assistance Administer analgesics based on type and severity of pain and evaluate response Implement non-pharmacological measures as appropriate and evaluate response Consider cultural and social influences on pain and pain management Problem: Safety - Adult Goal: Free from fall injury Outcome: Progressing Flowsheets (Taken 10/16/2022 0800) Free from fall injury: Assess patient frequently for physical needs Identify cognitive and physical deficits and behaviors that affect risk of falls [place] fall precautions as indicated by assessment Educate patient/family on patient safety, including physical limitations Instruct patient to call for assistance with activity based on assessment Modify environment to reduce risk of injury Problem: Discharge Planning Goal: Discharge to home or other facility with appropriate resources Outcome: Progressing Problem: Chronic Conditions and Co-morbidities Goal: Patient's chronic conditions and co-morbidity symptoms are monitored and maintained or improved Outcome: Progressing The patient is Moderately Stable - Low risk of patient condition declining or worsening The patient's goals for the shift include comfort The clinical goals for the shift include to remain hemodynamically stable Normal [facility] 30 The patient is Moderately Stable - Low risk of patient condition declining or worsening The patient's goals for the shift include Comfort and rest The clinical goals for the shift include VSS Over the shift, the patient did make progress toward the following goals. Problem: Safety - Adult Goal: Free from fall injury Outcome: Progressing Flowsheets (Taken 10/15/2022 2200) Free from fall injury: Assess patient frequently for physical needs [place] fall precautions as indicated by assessment Educate patient/family on patient safety, including physical limitations Instruct patient to call for assistance with activity based on assessment Problem: Pain - Adult Goal: Verbalizes/displays adequate comfort level or baseline comfort level Outcome: Progressing Normal [facility] APTTon 10-16-2022 ACTIVATED PARTIAL THROMBOPLASTIN TIME IN PPP BY COAGULATION ASSAY 110.7 Seconds High 25.0-35.0 [facility] Comment on above: Result Comment: Clin ical significance of the APTT is questionable in the presence of heparin. Performed By: #### L [id number] ####[facility] ([facility])[address] [place] [address] ACTIVATED PARTIAL THROMBOPLASTIN TIME IN PPP BY COAGULATION ASSAY 126.0 Seconds High 25.0-35.0 [facility] Comment on above: Result Comment: Clin ical significance of the APTT is questionable in the presence of heparin. Performed By: #### L [id number] ####[facility] ([facility])[address] [place] [address] BASIC METABOLIC PANELon Anion gap [Moles/Vol] 10 mmol/L Normal 7-20 [facility] Comment on above: Performed By: #### L [id number] ####[facility] ([facility])[address] [place] [address] Calcium [Mass/Vol] 9.3 mg/dL Normal 8.6-10.3 [facility] Comment on above: Performed By: #### L [id number] ####[facility] ([facility])[address] [place] [address] Chloride [Moles/Vol] 101 mmol/L Normal 98-107 [facility] Comment on above: Performed By: #### L [id number] ####[facility] ([facility])[address] [place] [address] CO2 [Moles/Vol] 30 mmol/L Normal 21-[address] [facility] Comment on above: Performed By: #### L [id number] ####[facility] ([facility])[address] [place], [place] [address] Creatinine [Mass/Vol] 1.42 mg/dL High 0.70-1.30 [facility] Comment on above: Performed By: #### L [id number] ####[facility] ([facility])[address] [place] [address] GLOMERULAR FILTRATION RATE ML/MIN/1.73 SQ M.PREDICTED 48.4 mL/min/1.73m*2 Low >60.0 [facility] Comment on above: Result Comment: The [facility]???s estimated glomerular filtration rate (eGFR) will no longer include consideration of race in its calculation. The National Kidney Foundation???s eGFR Task Force developed new recommendations for the estimation of the glomerular filtration rate in the [place] They recommend immediate implementation of the new equation refit without the race variable in all laboratories because the calculation does not include race. In addition to not including race in the calculation and reporting, it included diversity in its development, and has acceptable performance characteristics and potential consequences that do not disproportionately affect any one group of individuals. Performed By: #### L [id number] ####[facility] ([place])[address] [place] [address] Glucose [Mass/Vol] 118 mg/dL High 70-100 [facility] Comment on above: Performed By: #### L [id number] ####[facility] ([facility])[address] [place] [address] Potassium [Moles/Vol] 3.9 mmol/L Normal 3.5-5.1 [facility] Comment on above: Performed By: #### L [id number] ####[facility] ([facility])[address] [place] [address] Sodium [Moles/Vol] 137 mmol/L Normal 136-145 [facility] Comment on above: Performed By: #### L [id number] ####[facility] ([facility])[address] [place] [address] Urea nitrogen [Mass/Vol] 27 mg/dL High 7-25 [facility] Comment on above: Performed By: #### L [id number] ####[facility] ([facility])[address] [place] [address] UREA NITROGEN/CREATININE (MASS RATIO) IN SER/PLAS 19.0 Normal [facility] Comment on above: Performed By: #### L [id number] ####[facility] [place] [address] CBCon 10-16-2022 Erythrocyte distribution width (RBC) [Ratio] 12.6 % Normal 11.5-15.0 [facility] Comment on above: Performed By: #### L [id number] ####[facility] [place] [address] ERYTHROCYTE MEAN CORPUSCULAR HEMOGLOBIN CONCENTRATION (G/DL) BY AUTOMATED 33.1 g/dL Normal 32.0-35.0 [facility] Comment on above: Performed By: #### L [id number] ####[facility], [place] [address] Hematocrit (Bld) [Volume fraction] 41.1 % Normal 39.0-55.0 [facility] Comment on above: Performed By: #### L [id number] ####[facility] ([facility])[address], [place] [address] Hemoglobin (Bld) [Mass/Vol] 13.6 g/dL Normal 13.0-17.0 [facility] Comment on above: Performed By: #### L [id number] ####[facility] ([facility])[address] [place] [address] IMMATURE PLATELET FRACTION % 4.1 % Normal 0.8-6.3 [facility] Comment on above: Performed By: #### L [id number] ####[facility] ([facility])[address] [place] [address] MCH (RBC) [Entitic mass] 29.3 pg Normal 27.0-33.0 [facility] Comment on above: Performed By: #### L [id number] ####[facility] ([facility])[address] [place] [address] MCV (RBC) [Entitic vol] 88.6 fL Normal 82.0-98.0 [facility] Comment on above: Performed By: #### L [id number] ####[facility] ([facility])[address] [place] [address] PLATELETS (10*3/UL) IN BLOOD AUTOMATED COUNT 120 10*3/uL Low 150-400 [facility] Comment on above: Performed By: #### L [id number] ####[facility] ([facility])[address] [place] [address] RBC (Bld) [#/Vol] 4.64 10*6/uL Normal 4.20-5.70 [facility] Comment on above: Performed By: #### L [id number] ####[facility] ([facility])[address] [place] [address] WBC (Bld) [#/Vol] 7.53 10*3/uL Normal 4.00-10.60 [facility] Comment on above: Performed By: #### L [id number] ####[facility] ([facility])[address] [place] [address] MAGNESIUMon 10-16-2022 Magnesium [Mass/Vol] 1.7 mg/dL Low 1.9-2.7 [facility] Comment on above: Performed By: #### L [id number] ####[facility] [place] [address] POCT GLUCOSE METER UNSOLICIT ED RESULTSon 09-09-2023 Glucose [Mass/Vol] 224 mg/dL High 70-105 [facility] Comment on above: Order Comment: Waive d Testing in the ED is performed under the ED CLIA certificate #[id number]. Result Comment: atru ss Performed By: #### L [id number] ####[facility] ([facility])[address] [facility] [address] Glucose [Mass/Vol] 236 mg/dL High 70-105 [facility] Comment on above: Order Comment: Waive d Testing in the ED is performed under the ED CLIA certificate #[id number]. Result Comment: [email or web address] [email or web address] Performed By: #### L [id number] ####[facility] ([facility])[address] [place] [address] Glucose [Mass/Vol] 209 mg/dL High 70-105 [facility] Comment on above: Order Comment: Waive d Testing in the ED is performed under the ED CLIA certificate #[id number]. Result Comment: [email or web address] [email or web address] Performed By: #### L [id number] ####[facility] ([facility])[address] [place] [address] Glucose [Mass/Vol] 115 mg/dL High 70-105 [facility] Comment on above: Order Comment: Waive d Testing in the ED is performed under the ED CLIA certificate #[id number]. Result Comment: [email or web address] [email or web address] Performed By: #### L [id number] ####[facility] ([facility])[address] [place] [address] 30on 10-15-2022 30 Daily Case Managemen t Update Multidisciplinary rounds have been completed. Barriers to Discharge: Plan for cardiac cath. Home therapy recommended at time of discharge, SW made aware of need for HHC. Diet: Dietary Orders (From admission, onward) Start Ordered 10/15/22 1559 Regular Diet Heart Healthy/HTN, CABG,Stroke, (2gNA, low fat, low cholesterol); Diabetic Male (carb 60g/meal) Diet effective now Question Answer Comment Room Service? Yes Fat restriction: Heart Healthy/HTN, CABG,Stroke, (2gNA, low fat, low cholesterol) Carbohydrate restriction: Diabetic Male (carb 60g/meal) 10/15/22 1559 10/14/22 171 Special Kitchen Request Once Comments: Please send a sugar free chocolate pudding for dessert. Thanks 10/14/22 1716 10/14/22 1125 Special Kitchen Request Once Comments: Please send chicken noodle soup, mashed sweet potato with butter, and a decaf iced tea. Thanks 10/14/22 1129 10/14/22 0935 Special Kitchen Request Once Comments: Please send rice krispies with milk, fruit cup, and a cranberry juice. Thanks 10/14/22 0935 Physician Expected Discharge Date: 10/16/2022 Discharge Delays: PT Six Click Score: 22 OT Six Click Score: 21 PT Recommendations: Home PT OT Recommendations: Home New Consults: Therapy Orders (From admission, onward) Start Ordered 10/14/22 0856 PT eval and treat Until therapy completed Question: Reason for PT? Answer: balance issues 10/14/22 0855 10/14/22 0856 OT eval and treat Until therapy completed Question: Reason for OT? Answer: balance issues 10/14/22 0855 Normal [facility] 30 The patient is Moderately Stable - Low risk of patient condition declining or worsening The patient's goals for the shift include comfort The clinical goals for the shift include to remain hemodynamically stable Normal [facility] 30 The patient is Moderately Stable - Low risk of patient condition declining or worsening The patient's goals for the shift include Comfort and rest The clinical goals for the shift include VSS Over the shift, the patient did make progress toward the following goals. Problem: Safety - Adult Goal: Free from fall injury Outcome: Progressing Problem: Pain - Adult Goal: Verbalizes/displays adequate comfort level or baseline comfort level Outcome: Progressing Normal [facility] APTTon 10-15-2022 ACTIVATED PARTIAL THROMBOPLASTIN TIME IN PPP BY COAGULATION ASSAY 133.0 Seconds Critically high 25.0-35.0 [facility] Comment on above: Result Comment: Clin ical significance of the APTT is questionable in the presence of heparin. Performed By: #### L [id number] ####[facility] ([facility])[address] [place] [address] ACTIVATED PARTIAL THROMBOPLASTIN TIME IN PPP BY COAGULATION ASSAY 128.7 Seconds High 25.0-35.0 [facility] Comment on above: Result Comment: Clin ical significance of the APTT is questionable in the presence of heparin. Performed By: #### L [id number] ####[facility] ([facility])[address] [place] [address] ACTIVATED PARTIAL THROMBOPLASTIN TIME IN PPP BY COAGULATION ASSAY 156.1 Seconds Critically high 25.0-35.0 [facility] Comment on above: Result Comment: Clin ical significance of the APTT is questionable in the presence of heparin. Performed By: #### L [id number] ####[facility] ([facility])[address] [place] [address] BASIC METABOLIC PANELon 09-0 Anion gap [Moles/Vol] 12 mmol/L Normal 7-20 [facility] Comment on above: Performed By: #### L [id number] ####[facility] ([facility])[address] [place] [address] Calcium [Mass/Vol] 9.4 mg/dL Normal 8.6-10.3 [facility] Comment on above: Performed By: #### L [id number] ####[facility] ([facility])[address] [place] [address] Chloride [Moles/Vol] 106 mmol/L Normal 98-107 [facility] Comment on above: Performed By: #### L [id number] ####[facility] ([facility])[address] [place] [address] CO2 [Moles/Vol] 26 mmol/L Normal 21-[address] [facility] Comment on above: Performed By: #### L [id number] ####[facility] ([facility])[address] [place] [address] Creatinine [Mass/Vol] 1.40 mg/dL High 0.70-1.30 [facility] Comment on above: Performed By: #### L [id number] ####[facility] ([facility])[address] [place] [address] GLOMERULAR FILTRATION RATE ML/MIN/1.73 SQ M.PREDICTED 49.3 mL/min/1.73m*2 Low >60.0 [facility] Comment on above: Result Comment: The [facility]???s estimated glomerular filtration rate (eGFR) will no longer include consideration of race in its calculation. The National Kidney Foundation???s eGFR Task Force developed new recommendations for the estimation of the glomerular filtration rate in the [place] They recommend immediate implementation of the new equation refit without the race variable in all laboratories because the calculation does not include race. In addition to not including race in the calculation and reporting, it included diversity in its development, and has acceptable performance characteristics and potential consequences that do not disproportionately affect any one group of individuals. Performed By: #### L [id number] ####[facility] ([facility])[address] [place] [address] Glucose [Mass/Vol] 72 mg/dL Normal 70-100 [facility] Comment on above: Performed By: #### L [id number] ####[facility] ([facility])[address] [place] [address] Potassium [Moles/Vol] 3.8 mmol/L Normal 3.5-5.1 [facility] Comment on above: Performed By: #### L [id number] ####[facility] ([facility])[address] [place] [address] Sodium [Moles/Vol] 140 mmol/L Normal 136-145 [facility] Comment on above: Performed By: #### L [id number] ####[facility] ([facility])[address] [place] [address] Urea nitrogen [Mass/Vol] 23 mg/dL Normal 7-25 [facility] Comment on above: Performed By: #### L [id number] ####[facility] ([facility])[address] [place] [address] UREA NITROGEN/CREATININE (MASS RATIO) IN SER/PLAS 16.4 Normal [facility] Comment on above: Performed By: #### L [id number] ####[facility] ([facility])[address] [place] [address] CBCon 10-15-2022 Erythrocyte distribution width (RBC) [Ratio] 12.8 % Normal 11.5-15.0 [facility] Comment on above: Performed By: #### L [id number] ####[facility] ([facility])[address] [place] [address] ERYTHROCYTE MEAN CORPUSCULAR HEMOGLOBIN CONCENTRATION (G/DL) BY AUTOMATED 33.7 g/dL Normal 32.0-35.0 [facility] Comment on above: Performed By: #### L [id number] ####[facility] ([facility])[address] [place] [address] Hematocrit (Bld) [Volume fraction] 41.3 % Normal 39.0-55.0 [facility] Comment on above: Performed By: #### L [id number] ####[facility] ([facility])[address] [place] [address] Hemoglobin (Bld) [Mass/Vol] 13.9 g/dL Normal 13.0-17.0 [facility] Comment on above: Performed By: #### L [id number] ####[facility] ([facility])[address] [place] [address] IMMATURE PLATELET FRACTION % 5.2 % Normal 0.8-6.3 [facility] Comment on above: Performed By: #### L [id number] ####[facility] ([facility])[address] [place] [address] MCH (RBC) [Entitic mass] 30.0 pg Normal 27.0-33.0 [facility] Comment on above: Performed By: #### L [id number] ####[facility] ([facility])[address] [place] [address] MCV (RBC) [Entitic vol] 89.0 fL Normal 82.0-98.0 [facility] Comment on above: Performed By: #### L [id number] ####[facility] ([facility] [address] PLATELETS (10*3/UL) IN BLOOD AUTOMATED COUNT 120 10*3/uL Low 150-400 [facility] Comment on above: Performed By: #### L [id number] ####[facility] ([facility])[address] [place] [address] RBC (Bld) [#/Vol] 4.64 10*6/uL Normal 4.20-5.70 [facility] Comment on above: Performed By: #### L [id number] ####[facility] ([facility])[address] [place] [address] WBC (Bld) [#/Vol] 6.64 10*3/uL Normal 4.00-10.60 [facility] Comment on above: Performed By: #### L [id number] ####[facility] ([facility])[address] [place] [address] HEPARIN LEVELon 10-15-2022 HEPARIN UNFRACTIONATED (U/ML) IN PPP BY CHROMOGENIC METHOD >1.00 Critically high 0.3-0.7 [facility] Comment on above: Order Comment: Hepar in level added per protocol.Actual heparin level for pharmacy use = 1.07 international {unit/units:8690434} /mL Result Comment: [place] roxaban and Apixaban will interfere with the anti Xa assay used to monitor UFH and LMWH. Performed By: #### L [id number] ####[facility] ([facility])[address] [place] [address] MAGNESIUMon 10-15-2022 Magnesium [Mass/Vol] 1.5 mg/dL Low 1.9-2.7 [facility] Comment on above: Performed By: #### L [id number] ####[facility] ([facility])[address] [place] [address] POCT GLUCOSE METER UNSOLICIT ED RESULTSon 10-15-2022 Glucose [Mass/Vol] 157 mg/dL High 70-105 [facility] Comment on above: Order Comment: Waive d Testing in the ED is performed under the ED CLIA certificate #[id number]. Result Comment: iknina juan m Performed By: #### L [id number] ####[facility] ([facility])[address] [place] [address] Glucose [Mass/Vol] 80 mg/dL Normal 70-105 [facility] Comment on above: Order Comment: Waive d Testing in the ED is performed under the ED CLIA certificate #[id number]. Result Comment: [email or web address] [email or web address] Performed By: #### L [id number] ####[facility] ([facility])[address] [place] [address] Glucose [Mass/Vol] 81 mg/dL Normal 70-105 [facility] Comment on above: Order Comment: Waive d Testing in the ED is performed under the ED CLIA certificate #[id number]. Result Comment: vcar mon Performed By: #### L [id number] ####[facility] ([facility])[address] [place] [address] Glucose [Mass/Vol] 125 mg/dL High 70-105 [facility] Comment on above: Order Comment: Waive d Testing in the ED is performed under the ED CLIA certificate #[id number]. Result Comment: vcar mon Performed By: #### L [id number] ####[facility] ([facility])[address] [place] [address] Glucose [Mass/Vol] 84 mg/dL Normal 70-105 [facility] Comment on above: Order Comment: Waive d Testing in the ED is performed under the ED CLIA certificate #[id number]. Result Comment: atru ss Performed By: #### L [id number] ####[facility] ([facility])[address] [place] [address] 30on 10-14-2022 30 Daily Case Managemen t Update Multidisciplinary rounds have been completed. Barriers to Discharge: Plan for cath tomorrow. On heparin drip while eliquis is on hold. Diet: Dietary Orders (From admission, onward) Start Ordered 10/14/22 1222 Regular Diet Heart Healthy/HTN, CABG,Stroke, (2gNA, low fat, low cholesterol); Diabetic Male (carb 60g/meal) Diet effective now Question Answer Comment Room Service? Yes Fat restriction: Heart Healthy/HTN, CABG,Stroke, (2gNA, low fat, low cholesterol) Carbohydrate restriction: Diabetic Male (carb 60g/meal) 10/14/22 1221 10/14/22 1125 Special Kitchen Request Once Comments: Please send chicken noodle soup, mashed sweet potato with butter, and a decaf iced tea. Thanks 10/14/22 1129 10/14/22 0935 Special Kitchen Request Once Comments: Please send rice krispies with milk, fruit cup, and a cranberry juice. Thanks 10/14/22 0935 Physician Expected Discharge Date: 10/16/2022 Discharge Delays: PT Six Click Score: OT Six Click Score: PT Recommendations: OT Recommendations: New Consults: Consult Orders (From admission, onward) Start Ordered 10/14/22 0006 Inpatient consult to Cardiology Once Specialty: Cardiology Provider: (Not yet assigned) Question Answer Comment Consulting Group CARDIOLOGY TEAM Reason for Consult? NSTEMI Level of Consultation Consultation and Management 10/14/22 0005 Therapy Orders (From admission, onward) Start Ordered 10/14/22 0856 PT eval and treat Until therapy completed Question: Reason for PT? Answer: balance issues 10/14/22 0855 10/14/22 0856 OT eval and treat Until therapy completed Question: Reason for OT? Answer: balance issues 10/14/22 0855 [facility] 30 The patient is Moderately Stable - Low risk of patient condition declining or worsening The patient's goals for the shift include rest The clinical goals for the shift include vss Problem: Pain - Adult Goal: Verbalizes/displays adequate comfort level or baseline comfort level Outcome: Progressing Problem: Safety - Adult Goal: Free from fall injury Outcome: Progressing Problem: Discharge Planning Goal: Discharge to home or other facility with appropriate resources Outcome: Progressing Problem: Chronic Conditions and Co-morbidities Goal: Patient's chronic conditions and co-morbidity symptoms are monitored and maintained or improved Outcome: Progressing Normal [facility] 30 The patient is Moderately Stable - Low risk of patient condition declining or worsening The patient's goals for the shift include rest The clinical goals for the shift include vss Over the shift, the patient did not make progress toward the following goals. Barriers to progression include cp. Recommendations to address these barriers include no cp. Normal [facility] APTTon 10-14-2022 ACTIVATED PARTIAL THROMBOPLASTIN TIME IN PPP BY COAGULATION ASSAY 153.0 Seconds Critically high 25.0-35.0 [facility] Comment on above: Result Comment: Clin ical significance of the APTT is questionable in the presence of heparin. Performed By: #### L [id number] ####[facility] ([facility])[address] [place] [address] ACTIVATED PARTIAL THROMBOPLASTIN TIME IN PPP BY COAGULATION ASSAY 168.2 Seconds Critically high 25.0-35.0 [facility] Comment on above: Result Comment: Clin ical significance of the APTT is questionable in the presence of heparin. Performed By: #### L [id number] ####[facility] ([facility])[address] [place] [address] ACTIVATED PARTIAL THROMBOPLASTIN TIME IN PPP BY COAGULATION ASSAY 33.0 Seconds Normal 25.0-35.0 [facility] Comment on above: Result Comment: Clin ical significance of the APTT is questionable in the presence of heparin. Performed By: #### L [id number] ####[facility] ([facility])[address] [place] [address] B-TYPE NATRIURETIC PEPTIDEon 10-14-2022 Natriuretic peptide B (Bld) [Mass/Vol] 476 pg/mL High 0-100 [facility] Comment on above: Performed By: #### L [id number] ####[facility] ([facility])[address] [place] [address] CBC WITH AUTO DIFFERENTIALon 10-14-2022 Basophils (Bld) [#/Vol] 0.03 10*3/uL Normal 0.00-0.20 [facility] Comment on above: Performed By: #### L [id number] ####[facility] ([facility])[address] [place] [address] Basophils/100 WBC (Bld) 0.4 % Normal 0.0-1.0 [facility] Comment on above: Performed By: #### L [id number] ####[facility] [place] [address] Eosinophils (Bld) [#/Vol] 0.27 10*3/uL Normal 0.00-0.50 [facility] Comment on above: Performed By: #### L [id number] ####[facility] ([facility])[address] [place] [address] Eosinophils/100 WBC (Bld) 3.8 % Normal 0.0-6.0 [facility] Comment on above: Performed By: #### L [id number] ####[facility] ([facility])[address] [place] [address] Erythrocyte distribution width (RBC) [Ratio] 12.7 % Normal 11.5-15.0 [facility] Comment on above: Performed By: #### L [id number] ####[facility] ([facility])[address] [place] [address] ERYTHROCYTE MEAN CORPUSCULAR HEMOGLOBIN CONCENTRATION (G/DL) BY AUTOMATED 34.5 g/dL Normal 32.0-35.0 [facility] Comment on above: Performed By: #### L [id number] ####[facility] ([facility])[address] [place] [address] Hematocrit (Bld) [Volume fraction] 38.6 % Low 39.0-55.0 [facility] Comment on above: Performed By: #### L [id number] ####[facility] ([facility])[address] [place] [address] Hemoglobin (Bld) [Mass/Vol] 13.3 g/dL Normal 13.0-17.0 [facility] Comment on above: Performed By: #### L [id number] ####[facility] [place] [address] Immature granulocytes (Bld) [#/Vol] 0.01 10*3/uL Normal 0.00-0.20 [facility] Comment on above: Performed By: #### L [id number] ####[facility] ([facility])[address] [place] [address] Immature granulocytes/100 WBC (Bld) 0.1 % Normal 0.0-1.0 [facility] Comment on above: Performed By: #### L [id number] ####[facility] ([facility])[address] [place] [address] IMMATURE PLATELET FRACTION % 3.5 % Normal 0.8-6.3 [facility] Comment on above: Performed By: #### L [id number] ####[facility] ([facility])[address] [place] [address] Lymphocytes (Bld) [#/Vol] 1.94 10*3/uL Normal 1.20-4.00 [facility] Comment on above: Performed By: #### L [id number] ####[facility] ([facility])[address] [place] [address] Lymphocytes/100 WBC (Bld) 27.0 % Normal 20.0-45.0 [facility] Comment on above: Performed By: #### L [id number] ####[facility] ([facility])[address] [place] [address] MCH (RBC) [Entitic mass] 30.5 pg Normal 27.0-33.0 [facility] Comment on above: Performed By: #### L [id number] ####[facility] ([facility])[address] [place] [address] MCV (RBC) [Entitic vol] 88.5 fL Normal 82.0-98.0 [facility] Comment on above: Performed By: #### L [id number] ####[facility] ([facility])[address] [place] [address] Monocytes (Bld) [#/Vol] 0.72 10*3/uL Normal 0.10-1.00 [facility] Comment on above: Performed By: #### L [id number] ####[facility] ([facility])[address] [place] [address] Monocytes/100 WBC (Bld) 10.0 % Normal 5.0-12.0 [facility] Comment on above: Performed By: #### L [id number] ####[facility] [place] [address] Neutrophils (Bld) [#/Vol] 4.21 10*3/uL Normal 1.60-7.60 [facility] Comment on above: Performed By: #### L [id number] ####[facility] ([facility])[address] [place] [address] Neutrophils/100 WBC (Bld) 58.7 % Normal 40.0-72.0 [facility] Comment on above: Performed By: #### L [id number] ####[facility] ([facility])[address] [place] [address] NRBC (PER 100 WBCS) BY AUTOMATED COUNT 0.0 % Normal 0 [facility] Comment on above: Performed By: #### L [id number] ####[facility] ([facility])[address] [place] [address] PLATELETS (10*3/UL) IN BLOOD AUTOMATED COUNT 128 10*3/uL Low 150-400 [facility] Comment on above: Performed By: #### L [id number] ####[facility] ([facility])[address] [place] [address] RBC (Bld) [#/Vol] 4.36 10*6/uL Normal 4.20-5.70 [facility] Comment on above: Performed By: #### L [id number] ####[facility] [place] [address] WBC (Bld) [#/Vol] 7.18 10*3/uL Normal 4.00-10.60 [facility] Comment on above: Performed By: #### L [id number] ####[facility] ([facility])[address] [place] [address] COMPREHENSIVE METABOLIC PANE Remi 10-14-2022 Albumin [Mass/Vol] 3.9 g/dL Normal 3.5-5.7 [facility] Comment on above: Performed By: #### L [id number] ####[facility] ([facility])[address] [place] [address] ALP [Catalytic activity/Vol] 42 U/L Normal 34-104 [facility] Comment on above: Performed By: #### L [id number] ####[facility] ([facility])[address] [place] [address] ALT [Catalytic activity/Vol] 13 U/L Normal 7-52 [facility] Comment on above: Performed By: #### L [id number] ####[facility] ([facility])[address] [place] [address] Anion gap [Moles/Vol] 10 mmol/L Normal 7-20 [facility] Comment on above: Performed By: #### L [id number] ####[facility] ([facility])[address] [place] [address] AST [Catalytic activity/Vol] 21 U/L Normal 13-39 [facility] Comment on above: Performed By: #### L [id number] ####[facility] ([facility])[address] [place] [address] Bilirubin [Mass/Vol] 1.0 mg/dL Normal 0.3-1.0 [facility] Comment on above: Performed By: #### L [id number] ####[facility] ([facility])[address] [place] [address] Calcium [Mass/Vol] 9.1 mg/dL Normal 8.6-10.3 [facility] Comment on above: Performed By: #### L [id number] ####[facility] ([facility])[address] [place] [address] Chloride [Moles/Vol] 105 mmol/L Normal 98-107 [facility] Comment on above: Performed By: #### L [id number] ####[facility] ([facility])[address] [place] [address] CO2 [Moles/Vol] 29 mmol/L Normal 21-[address] [facility] Comment on above: Performed By: #### L [id number] ####[facility] ([facility])[address] [place] [address] Creatinine [Mass/Vol] 1.27 mg/dL Normal 0.70-1.30 [facility] Comment on above: Performed By: #### L [id number] ####[facility] ([facility])[address] [place] [address] GLOMERULAR FILTRATION RATE ML/MIN/1.73 SQ M.PREDICTED 55.4 mL/min/1.73m*2 Low >60.0 [facility] Comment on above: Result Comment: The [facility]???s estimated glomerular filtration rate (eGFR) will no longer include consideration of race in its calculation. The National Kidney Foundation???s eGFR Task Force developed new recommendations for the estimation of the glomerular filtration rate in the [place] They recommend immediate implementation of the new equation refit without the race variable in all laboratories because the calculation does not include race. In addition to not including race in the calculation and reporting, it included diversity in its development, and has acceptable performance characteristics and potential consequences that do not disproportionately affect any one group of individuals. Performed By: #### L [id number] ####[facility] ([facility])[address] [place] [address] Glucose [Mass/Vol] 135 mg/dL High 70-100 [facility] Comment on above: Performed By: #### L [id number] ####[facility] ([facility])[address] [place] [address] Potassium [Moles/Vol] 3.6 mmol/L Normal 3.5-5.1 [facility] Comment on above: Performed By: #### L [id number] ####[facility] ([facility])[address] [place] [address] Protein [Mass/Vol] 6.3 g/dL Normal 6.0-8.3 [facility] Comment on above: Performed By: #### L [id number] ####[facility] ([facility]ER)[address] [place] [address] Sodium [Moles/Vol] 140 mmol/L Normal 136-145 [facility] Comment on above: Performed By: #### L [id number] ####[facility] ([facility])[address] [place] [address] Urea nitrogen [Mass/Vol] 27 mg/dL High 7-25 [facility] Comment on above: Performed By: #### L [id number] ####[facility] ([facility]ER)[address] [place] [address] UREA NITROGEN/CREATININE (MASS RATIO) IN SER/PLAS 21.3 Normal [facility] Comment on above: Performed By: #### L [id number] ####[facility] ([facility]ER)[address] [place] [address] CONSULTon 10-14-2022 CONSULT -- Attestation signed by Tato White MD at 10/15/2022 6:04 PM I personally saw and examined the patient on the same date of service as resident/fellow Vinh Thompson. I discussed the findings and therapeutic plan with the resident/fellow Vinh Thompson. I agree with the documentation, except for any edits/updates below. Teaching Physician's Revisions: As noted above Reason For Consult NSTEMI Referring Provider: Dr Savage History Of Present Illness Zaira Segura III is a 87 y.o. male presenting with chest pain. The pt presented to [facility] yesterday with sudden onset chest pain and transferred to [facility]. Chest pain started spontaneously without inciting event and was severe 7-09/16 and relieved with nitroglycerin drip in the ED. Troponin was elevated at 1.[address] depression and T wave inversions in lateral leads and atrial flutter w/ variable AV block. 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 EF was estimated at 37%. The pt declined CABG surgery and was managed medically with plan to readdress revascularization with pt in the clinic. Cath was done by Dr Munroe, with potential consideration for PCI of mid and proximal LAD with atherectomy and IVUS via femoral access. TTE in 07/30 showed EF 40% with G1DD and regional wall motion abnormalities. On my evaluation pt reports that he had retrosternal pain after taking K tablets and that resolved after throwing up. He states that this has been occurring for a few times since he was started on potassium tablets. Past Medical History He has a past medical history of Arrhythmia, Atrial flutter (CMS/HCC), Diabetes (CMS/HCC), and Hypertension. CKD stage III, HLD, CAD Surgical History He has a past surgical history that includes Hernia repair and Vascular surgery. Family History Family History Problem Relation Name Age of Onset Other (coronary artery bypass graft) Father Heart failure Sister Social History He reports that he has never smoked. He has never used smokeless tobacco. He reports that he does not currently use alcohol. No history on file for drug use. Allergies Multivitamin and Niacin Medications Medications Prior to Admission Medication Sig Dispense Refill Last Dose apixaban (Eliquis) 5 mg tablet Take 1 tablet by mouth in the morning and at bedtime. 10/12/2022 atorvastatin (Lipitor) 40 mg tablet TAKE 1 TABLET BY MOUTH EVERYDAY AT BEDTIME 10/12/2022 ezetimibe (Zetia) 10 mg tablet Take 1 tablet (10 mg) by mouth in the morning. 90 tablet 3 10/12/2022 famotidine (Pepcid) 20 mg tablet Take 20 mg by mouth in the morning and at bedtime. insulin glargine (Lantus) 100 unit/mL (3 mL) pen INJECT 28 UNITS TWICE DAILY, MAY BE ADJUSTED UP TO 30 UNITS 10/13/2022 insulin lispro (HumaLOG) 100 unit/mL injection PLEASE SEE ATTACHED FOR DETAILED DIRECTIONS Past Week isosorbide mononitrate ER (Imdur) 30 mg 24 hr tablet Take 1 tablet (30 mg) by mouth in the morning. Do not crush or chew. 90 tablet 3 losartan (Cozaar) 50 mg tablet Take 50 mg by mouth in the morning and at bedtime. 10/12/2022 metoprolol succinate XL (Toprol-XL) 100 mg 24 hr tablet Take 1 tablet (100 mg) by mouth in the morning. Do not crush or chew. 90 tablet 3 10/12/2022 potassium chloride CR (Klor-Con) 10 mEq ER tablet TAKE 1 TABLET BY MOUTH TWICE A DAY 180 tablet 3 [facility] Medications Medication Dose Route Frequency Last Admin aspirin 81 mg oral Daily atorvastatin 40 mg oral Nightly glucose 24 g oral PRN Or dextrose 50 % in water (D50W) 25 g intravenous PRN ezetimibe 10 mg oral Daily famotidine 20 mg oral BID 20 mg at 10/14/22 0746 heparin 0-28 Units/kg/hr intravenous Continuous 15 Units/kg/hr at 10/14/22 0049 insulin aspart 0-20 Units subcutaneous With meals & nightly insulin glargine 28 Units subcutaneous BID losartan 50 mg oral BID 50 mg at 10/14/22 0746 metoprolol succinate XL 100 mg oral Daily nitroglycerin 5-200 mcg/min intravenous Continuous Stopped at 10/14/22 0015 Oxygen Therapy inhalation Continuous PRN potassium chloride CR 10 mEq oral BID sodium chloride 10 mL intravenous q8h PRN Review of Systems Review of Systems HENT: Negative. Respiratory: Negative. Negative for shortness of breath. Cardiovascular: Negative. Gastrointestinal: Negative for abdominal pain, constipation and diarrhea. Heartburn Genitourinary: Positive for frequency. Musculoskeletal: Negative. Neurological: Negative. Last Recorded Vitals Patient Vitals for the past 24 hrs: BP Temp Temp src Pulse Resp SpO2 Height Weight 10/14/22 0743 152/85 36.6 ???C (97.9 ???F) Temporal 80 10 100 % -- -- 10/14/22 0538 155/83 36.7 ???C (98 ???F) Oral 83 16 -- 1.854 m (6' 1 ) 103 kg (227 lb 1.2 oz) 10/14/22 0417 154/73 36.7 (more content not included)... Normal [facility] HEMOGLOBIN A1Con 10-14-2022 Glucose [Mass/Vol] 166 mg/dL Normal [facility] Comment on above: Performed By: #### L [id number] ####[facility] ([facility])[address] [place] [address] HbA1c (Bld) [Mass fraction] 7.4 % High 4.0-6.0 [facility] Comment on above: Performed By: #### L [id number] ####[facility] ([facility])[address] [place] [address] HPon 10-14-2022 HP -- Attestation signed by Tato White MD at 10/15/2022 6:04 PM I personally saw and examined the patient on the same date of service as resident/fellow Vinh Thompson. I discussed the findings and therapeutic plan with the resident/fellow Vinh Thompson. I agree with the documentation, except for any edits/updates below. Teaching Physician's Revisions: As noted above Reason For Consult NSTEMI Referring Provider: Dr Savage History Of Present Illness Zaira Segura III is a 87 y.o. male presenting with chest pain. The pt presented to [facility] yesterday with sudden onset chest pain and transferred to [facility]. Chest pain started spontaneously without inciting event and was severe 10 and relieved with nitroglycerin drip in the ED. Troponin was elevated at 1.[address] depression and T wave inversions in lateral leads and atrial flutter w/ variable AV block. 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 EF was estimated at 37%. The pt declined CABG surgery and was managed medically with plan to readdress revascularization with pt in the clinic. Cath was done by Dr Munroe, with potential consideration for PCI of mid and proximal LAD with atherectomy and IVUS via femoral access. TTE in 07/30 showed EF 40% with G1DD and regional wall motion abnormalities. On my evaluation pt reports that he had retrosternal pain after taking K tablets and that resolved after throwing up. He states that this has been occurring for a few times since he was started on potassium tablets. Past Medical History He has a past medical history of Arrhythmia, Atrial flutter (CMS/HCC), Diabetes (CMS/HCC), and Hypertension. CKD stage III, HLD, CAD Surgical History He has a past surgical history that includes Hernia repair and Vascular surgery. Family History Family History Problem Relation Name Age of Onset Other (coronary artery bypass graft) Father Heart failure Sister Social History He reports that he has never smoked. He has never used smokeless tobacco. He reports that he does not currently use alcohol. No history on file for drug use. Allergies Multivitamin and Niacin Medications Medications Prior to Admission Medication Sig Dispense Refill Last Dose apixaban (Eliquis) 5 mg tablet Take 1 tablet by mouth in the morning and at bedtime. 10/12/2022 atorvastatin (Lipitor) 40 mg tablet TAKE 1 TABLET BY MOUTH EVERYDAY AT BEDTIME 10/12/2022 ezetimibe (Zetia) 10 mg tablet Take 1 tablet (10 mg) by mouth in the morning. 90 tablet 3 10/12/2022 famotidine (Pepcid) 20 mg tablet Take 20 mg by mouth in the morning and at bedtime. insulin glargine (Lantus) 100 unit/mL (3 mL) pen INJECT 28 UNITS TWICE DAILY, MAY BE ADJUSTED UP TO 30 UNITS 10/13/2022 insulin lispro (HumaLOG) 100 unit/mL injection PLEASE SEE ATTACHED FOR DETAILED DIRECTIONS Past Week isosorbide mononitrate ER (Imdur) 30 mg 24 hr tablet Take 1 tablet (30 mg) by mouth in the morning. Do not crush or chew. 90 tablet 3 losartan (Cozaar) 50 mg tablet Take 50 mg by mouth in the morning and at bedtime. 10/12/2022 metoprolol succinate XL (Toprol-XL) 100 mg 24 hr tablet Take 1 tablet (100 mg) by mouth in the morning. Do not crush or chew. 90 tablet 3 10/12/2022 potassium chloride CR (Klor-Con) 10 mEq ER tablet TAKE 1 TABLET BY MOUTH TWICE A DAY 180 tablet 3 [facility] Medications Medication Dose Route Frequency Last Admin aspirin 81 mg oral Daily atorvastatin 40 mg oral Nightly glucose 24 g oral PRN Or dextrose 50 % in water (D50W) 25 g intravenous PRN ezetimibe 10 mg oral Daily famotidine 20 mg oral BID 20 mg at 10/14/22 0746 heparin 0-28 Units/kg/hr intravenous Continuous 15 Units/kg/hr at 10/14/22 0049 insulin aspart 0-20 Units subcutaneous With meals & nightly insulin glargine 28 Units subcutaneous BID losartan 50 mg oral BID 50 mg at 10/14/22 0746 metoprolol succinate XL 100 mg oral Daily nitroglycerin 5-200 mcg/min intravenous Continuous Stopped at 10/14/22 0015 Oxygen Therapy inhalation Continuous PRN potassium chloride CR 10 mEq oral BID sodium chloride 10 mL intravenous q8h PRN Review of Systems Review of Systems HENT: Negative. Respiratory: Negative. Negative for shortness of breath. Cardiovascular: Negative. Gastrointestinal: Negative for abdominal pain, constipation and diarrhea. Heartburn Genitourinary: Positive for frequency. Musculoskeletal: Negative. Neurological: Negative. Last Recorded Vitals Patient Vitals for the past 24 hrs: BP Temp Temp src Pulse Resp SpO2 Height Weight 10/14/22 0743 152/85 36.6 ???C (97.9 ???F) Temporal 80 10 100 % -- -- 10/14/22 0538 155/83 36.7 ???C (98 ???F) Oral 83 16 -- 1.854 m (6' 1 ) 103 kg (227 lb 1.2 oz) 10/14/22 0417 154/73 36.7 (more content not included)... Normal [facility] LIPID PANELon 10-14-2022 CHOL/HDL 2.3 mg/dL Normal [facility] Comment on above: Performed By: #### L [id number] ####[facility] [place] [address] Cholesterol [Mass/Vol] 53 mg/dL Low 120-200 [facility] Comment on above: Performed By: #### L [id number] ####[facility] [place] [address] Magnesium [Mass/Vol] 67 mg/dL Normal 40-149 [facility] Comment on above: Result Comment: TRIG LYCERIDE REFERENCE RANGE: 20 YEARS AND OLDER CARDIOVASCULAR RISK LESS THAN 150 mg/dL LOW RISK 150 TO 199 mg/dL BORDERLINE RISK 200 mg/dL AND GREATER HIGH RISK Performed By: #### L [id number] ####[facility] ([facility])[address] [place] [address] Magnesium [Mass/Vol] 17 mg/dL Normal 0-160 [facility] Comment on above: Performed By: #### L [id number] ####[facility] [place] [address] Magnesium [Mass/Vol] 23 mg/dL Normal 23-92 [facility] Comment on above: Performed By: #### L [id number] ####[facility] [place] [address] NON HDL CHOL. (LDL+VLDL) 30 Normal [facility] Comment on above: Performed By: #### L [id number] ####[facility] ([facility]ER)[address] [place] [address] TOTAL VLDL-C 13 mg/dL Normal 0-40 [facility] Comment on above: Performed By: #### L [id number] ####[facility] [facility] [address] POCT GLUCOSE METER UNSOLICIT ED RESULTSon 10-14-2022 Glucose [Mass/Vol] 92 mg/dL Normal 70-105 [facility] Comment on above: Order Comment: Waive d Testing in the ED is performed under the ED CLIA certificate #[id number]. Result Comment: sukhdev [email or web address] Performed By: #### L [id number] ####[facility] ([facility])[address] [place] [address] Glucose [Mass/Vol] 148 mg/dL High 70-105 [facility] Comment on above: Order Comment: Waive d Testing in the ED is performed under the ED CLIA certificate #[id number]. Result Comment: [email or web address] Performed By: #### L [id number] ####[facility] ([facility])[address] [place] [address] Glucose [Mass/Vol] 318 mg/dL High 70-105 [facility] Comment on above: Order Comment: Waive d Testing in the ED is performed under the ED CLIA certificate #[id number]. Result Comment: [email or web address] Performed By: #### L [id number] ####[facility] ([facility])[address] [place] [address] Glucose [Mass/Vol] 144 mg/dL High 70-105 [facility] Comment on above: Order Comment: Waive d Testing in the ED is performed under the ED CLIA certificate #[id number]. Result Comment: [email or web address] Performed By: #### L [id number] ####[facility] ([facility])[address] [place] [address] Glucose [Mass/Vol] 160 mg/dL High 70-105 [facility] Comment on above: Order Comment: Waive d Testing in the ED is performed under the ED CLIA certificate #[id number]. Result Comment: sukhdev [email or web address] Performed By: #### L [id number] ####[facility] ([facility])[address] [place] [address] PROTIME-INRon 10-14-2022 INR IN PPP BY COAGULATION ASSAY 1.28 High 0.90-1.10 [facility] Comment on above: Result Comment: ACCC P RECOMMENDED INR FOR WARFARIN THERAPY CONDITION INR PROPHYLAXIS OF VENOUS THROMBOSIS 2-3 (HIGH-RISK SURGERY) TREATMENT OF VENOUS THROMBOSIS 2-3 TREATMENT OF PULMONARY EMBOLISM 2-3 PREVENTION OF SYSTEMIC EMBOLISM: 2-3 ACUTE MYOCARDIAL INFARCTION TISSUE HEART VALVES VALVULAR HEART DISEASE ATRIAL FIBRILLATION RECURRENT SYSTEMIC EMBOLISM MECHANICAL HEART VALVE 2.5-3.5 FROM: ORAL ANTICOAGULANTS. MECHANISM OF ACTION, CLINICAL EFFECTIVENESS, AND OPTIMAL THERAPEUTIC RANGE. CHEST 1995;108:231S-246S. Performed By: #### L [id number] ####[facility] ([facility])[address] [place] [address] PROTHROMBIN TIME (PT) IN PPP BY COAGULATION ASSAY 16.0 Seconds High 12.3-14.8 [facility] Comment on above: Performed By: #### L [id number] ####[facility] ([facility])[address] [place] [address] TROPONIN Ion 10-14-2022 Troponin I.cardiac [Mass/Vol] 0.98 ng/mL Critically high 0.00-0.04 [facility] Comment on above: Result Comment: Prev ious result verified on 10/14/2022 0950 on specimen/case [id number] called with component Troponin I for procedure Troponin I with value 1.16 ng/mL. Performed By: #### L [id number] ####[facility] ([facility])[address] [place] [address] Troponin I.cardiac [Mass/Vol] 1.16 ng/mL Critically high 0.00-0.04 [facility] Comment on above: Result Comment: M-FL EVIOUS CRITICAL RESULT Previous result verified on 10/14/20223 on specimen/case [id number] called with component Troponin I for procedure Troponin I with value 1.63 ng/mL. Performed By: #### L [id number] ####[facility] ([facility])[address] [place] [address] Troponin I.cardiac [Mass/Vol] 1.63 ng/mL Critically high 0.00-0.04 [facility] Comment on above: Result Comment: HEMA MALDONADO INITIAL CRITICAL HIGH; RESPUN AND RETESTED Performed By: #### L [id number] ####[facility] (BEAKER)[address] [place] [address] [facility] 2022 Home Health Records [id number] CD:127 Normal [facility] 2022 Home Health Records [id number] 0CD:127 Normal [facility] 2022 Home Health Records [id number] 0CD:[address] [facility] Office Visiton 07-27-2022 Follow-up visit [id number] Zaira Segura III [address] [facility] Provider Department Center 07/27/2022 [id number]-LRIKUGEHMANOOP REDDY CARD [facility] Family History Problem Relation Age of Onset Other Father Heart failure Sister Family Status - Relation Status Age at Father Sister Level of Service:42349 [place] OFFICE/OUTPATIENT ESTABLISHED MOD MDM 30-39 MIN Reason for Visit and Comments: Follow-up [400609] - 1 wk follow up Normal [facility] CONSULTon 07-21-2022 CONSULT Consults Consulting Provider: Dr. Munroe Consult Reason: Multivessel Coronary Artery Disease History Of Present Illness Zaira Segura III is a 87 y.o. male who came in for elective heart catherization with Dr. Munroe. He has a PMH of Atrial Flutter, DM2, PAD, and HTN. He states that recently he has been experiencing SOB and intermittent chest pain that is in the substernal region. There is no radiation of the pain and describes it as a sharp pain and compares it to a bad indigestion that has been worsening over the past few months. He underwent a stress test that revealed evidence of low EF 37% and defects suggestive of infarction- his previous echocardiogram in 03/01 showed an EF of 55-60%. Today he underwent a heart catherization that showed multivessel coronary artery disease. CT surgery was consulted for surgical evaluation and recommendations. Patient was seen bedside in the cardiac catheterization lab, discussed findings of cardiac cath with patient. Patient resting comfortably in bed denied any chest pain, shortness of breath, palpitations, nausea. After further discussion patient verbalized that at his age he would not want to undergo an invasive surgery. Past Medical History He has a past medical history of Arrhythmia, Atrial flutter (CMS/HCC), Diabetes (CMS/HCC), and Hypertension. Surgical History He has a past surgical history that includes Hernia repair and Vascular surgery. Social History He reports that he has never smoked. He has never used smokeless tobacco. He reports that he does not currently use alcohol. No history on file for drug use. Allergies Multivitamin and Niacin Medications Medications Prior to Admission Medication Sig Dispense Refill Last Dose apixaban (Eliquis) 5 mg tablet Take 1 tablet by mouth in the morning and at bedtime. Past Week atorvastatin (Lipitor) 40 mg tablet TAKE 1 TABLET BY MOUTH EVERYDAY AT BEDTIME 07/20/2022 insulin glargine (Lantus) 100 unit/mL (3 mL) pen INJECT 28 UNITS TWICE DAILY, MAY BE ADJUSTED UP TO 30 UNITS 07/20/2022 insulin lispro (HumaLOG) 100 unit/mL injection PLEASE SEE ATTACHED FOR DETAILED DIRECTIONS 07/20/2022 losartan (Cozaar) 50 mg tablet Take 50 mg by mouth in the morning and at bedtime. 07/20/2022 metoprolol tartrate (Lopressor) 50 mg tablet Take 1 tablet (50 mg) by mouth in the morning and at bedtime. 60 tablet 0 07/20/2022 potassium chloride CR (Klor-Con) 10 mEq ER tablet TAKE 1 TABLET BY MOUTH TWICE A DAY 180 tablet 3 07/20/2022 Review of Systems Review of Systems: All 14 Systems Reviewed and Negative unless otherwise indicated in the above HPI. Physical Exam Constitutional: General: He is not in acute distress. Appearance: Normal appearance. He is normal weight. He is not ill-appearing. HENT: Head: Normocephalic and atraumatic. Nose: Nose normal. Mouth/Throat: Mouth: Mucous membranes are moist. Eyes: Extraocular Movements: Extraocular movements intact. Conjunctiva/sclera: Conjunctivae normal. Pupils: Pupils are equal, round, and reactive to light. Cardiovascular: Rate and Rhythm: Normal rate and regular rhythm. Pulses: Normal pulses. Heart sounds: Normal heart sounds. No murmur heard. Pulmonary: Effort: Pulmonary effort is normal. Breath sounds: Normal breath sounds. Chest: Chest wall: No tenderness. Abdominal: General: Abdomen is flat. Bowel sounds are normal. There is no distension. Palpations: Abdomen is soft. Musculoskeletal: General: Normal range of motion. Cervical back: Normal range of motion. Right lower leg: No edema. Left lower leg: No edema. Skin: General: Skin is warm and dry. Capillary Refill: Capillary refill takes less than 2 seconds. Comments: Right anterior casillas, wound noted. Kerlix dressing with no drainage. Neurological: General: No focal deficit present. Mental Status: He is alert and oriented to person, place, and time. Mental status is at baseline. Motor: Weakness present. Psychiatric: Mood and Affect: Mood normal. Behavior: Behavior normal. Last Recorded Vitals Blood pressure 147/73, pulse 72, resp. rate 16, SpO2 98 %. Relevant Results Encounter Date: 07/21/22 ECG 12 lead Result Value Ventricular Rate 74 Atrial Rate 74 FL Interval 226 QRS DURATION 92 QT Interval 396 QTC CALCULATION(BAZETT) 439 P [place] 72 R-[place] 42 T Wave [place] 239 Impression Sinus rhythm with 1st degree A-V block ST & T wave abnormality, consider inferior ischemia ST & T wave abnormality, consider anterolateral ischemia Abnormal ECG No previous ECGs available Confirmed by Javier HICKMAN, LAKESHIA Alvarez ([id number]) on 07/21/2022 10:23:57 AM Cardiac Catherization 07/21/2022: Coronary Angiogram: Left main: The left main is short and bifurcates into the LAD and left circumflex coronary arteries. The left main is patent. LAD: The LAD is a large vessel. The ostial LAD has 90% calcified stenosis and the proximal LAD has diffuse 80% calcified steno (more content not included)... [facility] Erroneous Encounteron 2022 Erroneous Encounter [id number] Zaira Segura III 1935 [facility] Provider Department Center 07/21/2022 [id number] URBINA JHVCVASENDO [place] [facility] Family History Problem Relation Age of Onset Other Father Heart failure Sister Family Status - Relation Status Age at Father Sister Reason for Visit and Comments: Error (VOID this visit) [77] - Note made in wrong area. [facility] HPon 07-21-2022 HP H&P reviewed. The patient was examined and there are no changes to the H&P. [facility] NURSNOTEon 07-21-2022 NURSNOTE RN educated pt on d/ c instructions. RN encouraged pt to voice any questions or concerns. Pt verbalizes no questions or concerns at this time. Pt was wheeled off of unit with all of belongings. [facility] Orders Onlyon 07-16-2022 Orders Only [id number] Zaira Segura III 1935 [facility] Provider Department [place] 07/16/2022 [facility] VASC LAB [place] [facility] Family History Problem Relation Age of Onset Other Father Heart failure Sister Family Status - Relation Status Age at Father Sister [facility] 36on 07-13-2022 38 Seen in clinic today by dr. Singletary. Thank you, [facility] Office Visiton 07-13-2022 Follow-up visit [id number] Zaira Segura III J 1935 [facility] Provider Department Center 07/13/2022 241-CELIO SINGLETARY [facility] Sana Hos Family History Problem Relation Age of Onset Other Father Heart failure Sister Family Status - Relation Status Age at Father Sister Level of Service:29456 [place] OFFICE/OUTPATIENT ESTABLISHED HIGH MDM 40-54 MIN [facility] Home Health Recordson 2022 Home Health Records [id number] 0CD:[address] [facility] Home Health Records [id number] 0CD:127 Normal [facility] Home Health Records [id number] 0CD:127 Normal [facility] Health Records [id number] 0CD:127 Normal [facility] HPon 06-29-2022 [facility] Cardiology Consul t Note Reason for visit: vincent scott echo, stress not done HPI: Zaira Segura III is a 87 y.o. year old with past medical history of a-flutter, dm2, PAD, htn. He is here for Follow-up regarding echo and stress. Stress test was not done. He had echocardiogram done 02/18/2022 which showed normal LV function size, moderate concentric LV hypertrophy, normal left atrium, normal right atrium no significant valvular abnormality was, mild pulmonic regurgitation His ECG showed sinus rhythm with first-degree AV block and it did show T wave abnormalities, discussed with patient needs to follow-up with stress test so we can Rule out ischemia . I discussed with him he may need to go ablation for a-flutter but we should rule out ischemic and worsening structural concerns. Chest pain improved but has some discomfort with exertion, denies lightheadedness, dizziness, recent palpitations ------ Previous HPI per Dr. Singletary: Chief Complaint: Atrial flutter History of Present Illness: Mr. Segura is a 86-year-old gentleman with a past medical history of diabetes mellitus type 2, peripheral arterial disease, hypertension, who was diagnosed with atrial flutter while he was inpatient at [facility] for a foot wound. He was started on Eliquis and beta-blockers at that time. Since then he has been battling the issue of his right foot infection. He is very unhappy about his foot situation saying that this is limited his activity. He used to previously bike a lot specially many was in [place]. He denied any active chest pain but stated that he has felt some fatigue mainly due to inactivity. He seemed to be tolerating his Eliquis without any significant bleeding issues. EKG 08/04/2021 in the clinic shows sinus rhythm with PAC EKG 10/02/2020: SR ECHO 10/02/2020 1. Normal ventricular systolic function 2. Mild diastolic dysfunction 3. Normal right-sided pressures 4. No significant valvular dysfunction -------- PMH: Past Medical History: Diagnosis Date Arrhythmia Atrial flutter (CMS/HCC) Diabetes (CMS/HCC) Hypertension PSH: Past Surgical History: Procedure Laterality Date HERNIA REPAIR VASCULAR SURGERY SH: Social Determinants of Health Tobacco Use: Low Risk Smoking Tobacco Use: Never Smokeless Tobacco Use: Never Passive Exposure: Not on file Alcohol Use: Not on file Financial Resource Strain: Not on file Food Insecurity: Not on file Transportation Needs: Not on file Physical Activity: Not on file Stress: Not on file Social Connections: Not on file Intimate Partner Violence: Not on file Depression: Not on file Housing Stability: Not on file Allergies: Allergies Allergen Reactions Niacin Cause sweating Weight: 103kg Vitals: 06/29/22 1431 BP: 125/59 Pulse: 63 SpO2: 98% Meds: Current Outpatient Medications on File Prior to Visit Medication Sig Dispense Refill apixaban (Eliquis) 5 mg tablet Take 1 tablet by mouth in the morning and at bedtime. atorvastatin (Lipitor) 40 mg tablet TAKE 1 TABLET BY MOUTH EVERYDAY AT BEDTIME insulin glargine (Lantus) 100 unit/mL (3 mL) pen INJECT 28 UNITS TWICE DAILY, MAY BE ADJUSTED UP TO 30 UNITS insulin lispro (HumaLOG) 100 unit/mL injection PLEASE SEE ATTACHED FOR DETAILED DIRECTIONS magnesium oxide (Mag-Ox) 400 mg (241.3 mg magnesium) tablet Take 1 tablet by mouth in the morning. metoprolol tartrate (Lopressor) 50 mg tablet Take 1 tablet (50 mg) by mouth in the morning and at bedtime. 60 tablet 0 potassium chloride CR (Klor-Con) 10 mEq ER tablet TAKE 1 TABLET BY MOUTH TWICE A DAY 180 tablet 3 valsartan (Diovan) 80 mg tablet Take 1 tablet by mouth in the morning. zinc gluconate 50 mg tablet Take 1 tablet by mouth in the morning. No current facility-administered medications on file prior to visit. ROS: Cardio Basic Cardiovascular Symptoms: no lightheadedness, no leg edema, no syncope, no orthopnea, no PND, no claudication, Constitutional Constitutional: no fever, no night sweats, no significant weight gain, no significant weight loss, no exercise intolerance Eyes Eyes: no dry eyes, no irritation, no vision change ENMT Ears: no difficulty hearing, no ear pain Nose: no frequent nosebleeds, Mouth/Throat: no sore throat, no bleeding gums, no snoring, no dry mouth, no mouth ulcers, no oral abnormalities, no teeth problems Respiratory Respiratory: no cough, no wheezing, no coughing up blood, no sleep apnea Musculoskeletal Musculoskeletal: no muscle aches, no muscle weakness, joint pain+, no back pain, no swelling in the extremities Integumentary Skin no rash, no ulcer, no varicosities, no discoloration, no pruritus Neurologic Neurologic: no loss of consciousness, no weakness, no numbness, no seizures, no dizziness, no headaches Psychiatric Psych: n (more content not included)... Normal [facility] Office Visiton 06-29-2022 Follow-up visit [id number] Imelda GARCIAZaira Shrestha 1935 M Date Provider Department Center 06/29/2022 Annemarie-TARA CARDENAS GABY [facility] Family History Problem Relation Age of Onset Other Father Heart failure Sister Family Status - Relation Status Age at Father Sister Level of Service:48364 [place] OFFICE/OUTPATIENT ESTABLISHED MOD MDM 30-39 MIN Reason for Visit and Comments: Follow-up [671388] - to discuss ablation does not want stress test Normal [facility] Home Health Recordson 2022 Home Health Records [id number] 0CD:127 Normal [facility] Auto Diffon 06-25-2022 Basophils/100 WBC (Bld) 0.4 % Normal 0.0-2.0 [facility] Comment on above: Order Comment: Order Added by Discern Expert. Performed By: #### 2 252510, 4691911, 4945671, 79677493, 8730295, 656857406 ####[facility] [address] [place] [address] Basophils/Leukocytes Auto (Bld) [Pure # fraction] 0.0 E9/L Normal 0.0-0.2 [facility] Comment on above: Order Comment: Order Added by Discern Expert. Performed By: #### 2 962068, 8475437, 8983821, 07844277, 6239586, 198644286 ####[address] [address] Eosinophils/100 WBC (Bld) 4.4 % Normal 0.0-8.0 [facility] Comment on above: Order Comment: Order Added by Christopher Expert. Performed By: #### 2 661160, 7515334, 0904999, 79643960, 1921074, 945679446 ####[address] [address] Eosinophils/Leukocytes Auto (Bld) [Pure # fraction] 0.3 E9/L Normal 0.0-0.5 [facility] Comment on above: Order Comment: Order Added by Chrsitopher Expert. Performed By: #### 2 335593, 1541190, 7093175, 95282623, 7216820, 468057481 ####[address] [address] Lymphocytes/100 WBC (Bld) 19.9 % Normal 14.0-50.0 [facility] Comment on above: Order Comment: Order Added by Christopher Expert. Performed By: #### 2 714303, 5742372, 4453930, 67322221, 2639059, 457138220 ####[address] [address] Lymphocytes/Leukocytes Auto (Bld) [Pure # fraction] 1.4 E9/L Normal 1.0-4.0 [facility] Comment on above: Order Comment: Order Added by Discern Expert. Performed By: #### 2 601112, 0939723, 3207130, 93480895, 6942369, 902033770 ####[address] [place] [address] Monocytes/100 WBC (Bld) 9.4 % Normal 4.0-14.0 [facility] Comment on above: Order Comment: Order Added by Discern Expert. Performed By: #### 2 571830, 0610409, 1899846, 07815388, 5320154, 987841985 ####[address] [place] [address] Monocytes/Leukocytes Auto (Bld) [Pure # fraction] 0.7 E9/L Normal 0.2-1.0 [facility] Comment on above: Order Comment: Order Added by Christopher Expert. Performed By: #### 2 654628, 3163851, 3592592, 40295372, 6535505, 403990784 ####[address] [address] Neutrophils/100 WBC (Bld) 65.9 % Normal 36.0-75.0 [facility] Comment on above: Order Comment: Order Added by Discern Expert. Performed By: #### 2 147903, 1791169, 8236566, 30674357, 7026319, 239387643 ####[address] [address] Neutrophils/Leukocytes Auto (Bld) [Pure # fraction] 4.7 E9/L Normal 2.0-7.5 [facility] Comment on above: Order Comment: Order Added by Christopher Expert. Performed By: #### 2 094390, 5719656, 3945747, 75941888, 4781044, 072532312 ####[address] [place] [address] CBC w/ Auto Diffon 3 Erythrocyte distribution width (RBC) [Ratio] 13.9 % Normal 10.9-14.2 [facility] Comment on above: Performed By: #### 2 559133, 4067748, 2562511, 59058585, 7357505, 572076344 ####[address] [place] [address] Hematocrit (Bld) [Volume fraction] 43.9 % Normal 37.7-49.0 [facility] Comment on above: Performed By: #### 2 897345, 3150536, 1120663, 68949004, 6047559, 024133610 ####[address] [address] Hemoglobin (Bld) [Mass/Vol] 14.2 g/dL Normal 13.5-17.5 [facility] Comment on above: Performed By: #### 2 787919, 8170333, 0583451, 49333592, 3122491, 282998756 ####[address] [address] MCH (RBC) [Entitic mass] 28.8 pg Normal 27.0-34.0 [facility] Comment on above: Performed By: #### 2 966113, 8984700, 0645194, 53747162, 7229363, 431971984 ####[address] [address] MCHC (RBC) [Mass/Vol] 32.3 g/dL Normal 31.4-36.0 [facility] Comment on above: Performed By: #### 2 186864, 5177849, 4889248, 21921630, 2535973, 273686470 ####[address] [place] [address] MCV (RBC) [Entitic vol] 89.1 fL Normal 80.0-100.0 [facility] Comment on above: Performed By: #### 2 145671, 8089138, 3646876, 88945335, 2393435, 861385986 ####[address] [address] Platelet mean volume (Bld) [Entitic vol] 8.6 fL Normal 6.4-10.8 [facility] Comment on above: Performed By: #### 2 462734, 2469886, 5187105, 89710505, 9131202, 293060010 ####[facility] [address] [place] [address] Platelets (Bld) [#/Vol] 161.0 E9/L Normal 150.0-500.0 [facility] Comment on above: Performed By: #### 2 311047, 1033404, 3766971, 08183201, 2822629, 887634206 ####[address] [place] [address] RBC (Bld) [#/Vol] 4.9 E12/L Normal 4.3-5.9 [facility] Comment on above: Performed By: #### 2 579798, 6570304, 7327887, 01626602, 6040570, 357009025 ####[address] [address] WBC corrected for nucl RBC Auto (Bld) [#/Vol] 7.2 E9/L Normal 4.0-11.0 [facility] Comment on above: Performed By: #### 2 845521, 4255056, 4102424, 16008848, 0867498, 832800994 ####[address] [address] CMPon 06-25-2022 Albumin [Mass/Vol] 3.9 g/dL Normal 3.3-5.0 [facility] Comment on above: Performed By: #### 2 952270, 4946088, 9550561, 82256949, 0441858, 604289723 ####[address] [place] [address] Albumin/Globulin (S) [Mass conc ratio] 1.1 Normal 1.1-2.2 [facility] Comment on above: Performed By: #### 2 100481, 3135168, 6179856, 76085680, 8104602, 993277484 ####[facility] [address] [place] [address] ALP [Catalytic activity/Vol] 51 Int._Unit/L Normal 21-98 [facility] Comment on above: Performed By: #### 2 683214, 7748366, 3284429, 76345118, 5974681, 591091321 ####[facility] [address] [place] [address] ALT No additional P-5'-P [Catalytic activity/Vol] 22 Int._Unit/L Normal 6-46 [facility] Comment on above: Performed By: #### 2 454125, 0312454, 7615727, 35395349, 9421649, 121825154 ####[facility] [address] [place] [address] Anion gap [Moles/Vol] 12 mmol/L Normal 6-16 [facility] Comment on above: Performed By: #### 2 703513, 4191188, 7772613, 00685703, 3296709, 801175281 ####[facility] [address] [place] [address] AST [Catalytic activity/Vol] 26 Int._Unit/L Normal 5-43 [facility] Comment on above: Performed By: #### 2 713061, 4622265, 5353539, 32445608, 5736534, 555186846 ####[facility] [address] [place] [address] Bilirubin [Mass/Vol] 1.0 mg/dL Normal 0.0-1.1 [facility] Comment on above: Performed By: #### 2 193353, 3901903, 9015402, 70764703, 3125120, 388894422 ####[facility] [address] [place] [address] Calcium [Mass/Vol] 9.3 mg/dL Normal 8.9-11.1 [facility] Comment on above: Performed By: #### 2 220238, 5989882, 7143836, 01299293, 1459259, 497747028 ####[facility] [address] [place] [address] Chloride [Moles/Vol] 103 mmol/L Normal 101-111 [facility] Comment on above: Performed By: #### 2 376003, 3436936, 1299612, 60344582, 3102759, 664243897 ####[facility] [address] [place] [address] CO2 [Moles/Vol] 29 mmol/L Normal 21-31 [facility] Comment on above: Performed By: #### 2 907726, 2359133, 8361167, 41490061, 4102470, 057161839 ####[facility] [address] [place] [address] Creatinine [Mass/Vol] 1.4 mg/dL High 0.5-1.3 [facility] Comment on above: Performed By: #### 2 891599, 7463992, 8110682, 76997651, 4010379, 385854127 ####[facility] [address] [place] [address] Globulin (S) [Mass/Vol] 3.5 g/dL Normal 1.4-4.0 [facility] Comment on above: Performed By: #### 2 450689, 0730402, 2793280, 39595541, 8671338, 517954265 ####[facility] [address] [place] [address] Glucose [Mass/Vol] 87 mg/dL Normal 55-199 [facility] Comment on above: Result Comment: If t his glucose result represents a fasting glucose, interpretation should refer to the following reference range: 55-99 mg/dL Performed By: #### 2 889934, 3622335, 0089179, 00649618, 9103972, 576486201 ####[facility] [address] [place] [address] Potassium [Moles/Vol] 4.2 mmol/L Normal 3.5-5.3 [facility] Comment on above: Performed By: #### 2 011240, 3925199, 4802249, 86389508, 3777948, 096913427 ####[facility] [address] [place] [address] Protein [Mass/Vol] 7.4 g/dL Normal 6.0-7.8 [facility] Comment on above: Performed By: #### 2 850903, 9945071, 6052568, 12826713, 5516393, 504078592 ####[facility] [address] [place] [address] Sodium [Moles/Vol] 140 mmol/L Normal 135-145 [facility] Comment on above: Performed By: #### 2 691555, 8943402, 5127379, 77846454, 1798247, 626865685 ####[facility] [address] [place] [address] Urea nitrogen [Mass/Vol] 23 mg/dL High 5-21 [facility] Comment on above: Performed By: #### 2 483023, 4196563, 5479002, 25012332, 8908048, 639328501 ####[facility] [address] [place] [address] Urea nitrogen/Creatinine [Mass ratio] 16 No Units Normal 10-20 [facility] Comment on above: Performed By: #### 2 039925, 0761369, 2242554, 44515121, 6776289, 410653921 ####[facility] [address] [place] [address] GleC2kod 06-25-2022 HbA1c (Bld) [Mass fraction] 7.9 % High <=5.9 [facility] Comment on above: Performed By: #### 2 581846, 8844550, 3002168, 54520542, 7069087, 890568836 ####[facility] [address] [place] [address] Lipid Panelon 06-25-2022 Cholesterol [Mass/Vol] 71 mg/dL Low 120-200 [facility] Comment on above: Performed By: #### 2 326335, 7307287, 8217029, 72470712, 6651039, 708081938 ####[facility] [address] [place] [address] Cholesterol in HDL [Mass/Vol] 27 mg/dL Invalid Interpretation Code [facility] Comment on above: Result Comment: HDL > or equal to 60 mg/dL: Low cardiovascular risk HDL < 40 mg/dL : High cardiovascular risk Performed By: #### 2 208678, 7783070, 6584685, 27198848, 1898599, 007812873 ####[facility] [address] [place] [address] Cholesterol in LDL [Mass/Vol] 31 mg/dL Normal <=129 [facility] Comment on above: Performed By: #### 2 790579, 9173633, 4507478, 35106515, 4517252, 837193270 ####[facility] [address] [place] [address] Cholesterol in VLDL [Mass/Vol] 16 mg/dL Normal 7-40 [facility] Comment on above: Performed By: #### 2 342858, 1999219, 6999905, 84463319, 0186252, 900484332 ####[facility] [address] [place] [address] Triglyceride [Mass/Vol] 78 mg/dL Normal <=149 [facility] Comment on above: Performed By: #### 2 637321, 8008222, 9785274, 77016411, 0098386, 523704199 ####[facility] [address] [place] [address] Nurse Consultation Noteon Nurse Consultation Note Reason for Visit Here for lab draw Medications aspirin 81 mg Oral EC Tab, 81 mg= 1 tab(s), Oral, Daily atorvastatin 40 mg Tab, 40 mg= 1 tab(s), Oral, Bedtime BD MAIDA 2 GEN PEN NDL [id number] BD UF MAIDA PEN NEEDLE [id number] CVS ZINC 50 MG TABLET Handicap Placard, See Instructions HumaLOG KwikPen 100 units/mL injectable solution ketorolac Opth 0.5% Catherine Lantus Solostar Pen 100 units/mL subcutaneous solution Lopressor 25 mg oral tablet losartan 50 mg Tab, 50 mg= 1 tab(s), Oral, BID magnesium oxide 400 mg Tab Potassium Chloride (Qdt-Jdkt-Tpl 10) 10 mEq oral tablet, extended release Allergies Vitamins (Unknown) niacin (Unknown) Immunizations Vaccine Date Status Comments pneumococcal 20-valent conjugate vaccine 01/04/2022 Recorded SARS-CoV-2 (COVID-19) [id number] 01/04/2022 Recorded SARS-CoV-2 (COVID-19) mRNA BNT-162b2 vax 12/08/2020 Recorded 2022-04-19: [id number] SARS-CoV-2 (COVID-19) mRNA BNT-162b2 vax 06/04/2020 Recorded SARS-CoV-2 (COVID-19) mRNA BNT-162b2 vax 05/14/2020 Recorded Normal [facility] U Microalbon 06-25-2022 Albumin DL <= 20 mg/L (U) [Mass/Vol] 56.1 microgram/mL High 0.0-19.0 [facility] Comment on above: Performed By: #### 1 [id number] ####[facility] [address] [place] [address] eGFRon 06-25-2022 GFR/1.73 sq M.predicted among non-blacks MDRD (S/P/Bld) [Vol rate/Area] 49 mL/min/1.73 m2 Low >=59 [facility] Comment on above: Order Comment: Order added by Discern Expert. Result Comment: Quality Control Coordinator leonel kidney disease could be indicated at eGFR's of less than 60 mL/min/1.73m2. Kidney failure is indicated at less than 15 mL/min/1.73m2. Performed By: #### 2 [id number] ####[facility] [address] [place] [address] Home Health Recordson 2022 Home Health Records [id number] 0CD:127 Normal [facility] Family Medicine Office/Clini c Noteon 06-09-2022 Family Medicine Office/Clinic Note Chief Complaint est care HPI Staff establish care Establish Care: History: htn, a fib, DM, hypercholesterolemia Last provider: Kelly Any recent labs: 04/23 Health Maintenance UTD: Colonoscopy: aged out PSA:? covid: UTD Acute: Current issues/complaints: recent stay at [facility] for a fall w/ head injury History of Present Illness Zaira Segura is an 87-year-old male who presents today for a hospital discharge follow-up. He is accompanied by his nephew, Marquez. He is a patient of Dr. Mills. Zaira explains that he stumbled in his house and had 8 stitches on his head. He explains that he had bilateral cataract surgery 10 days before his fall. Zaira explains that he was seen at [facility] 2 years ago for an infection in his foot. He was unable to get his regular doctor and the infection worsened. He called Dr. Dewitt office and was told that he could not be seen. He went another day, and his ankle was getting infected and red. His sister took him to the hospital. They put him on IV fluids for 4 hours and sent him home. He wanted to use [facility], but EMS will not take him there. He has a hard time getting an ambulance that would take him to [place]. He was sitting on the floor bleeding. He was sent to [facility]. Zaira has atrial fibrillation. He is currently taking Eliquis. He sees [facility] Cardiology at [place]. He last saw them months ago. Zaira does not need refills on his medications. He would like a quarter wellness check to get his medicines. He got a wheelchair 3 days ago. He needs a 2 wheeled walker but may be getting one soon. Zaira is concerned about his A1c. Review of Systems PHQ Score Initial Depression Screen Score: 0 Physical Exam Vitals & Measurements HR: 69(Peripheral) BP: 102/60 SpO2: 96% HT: 72 in HT: 182 cm WT: 107 kg WT: 235.4 lb BMI: 32.3 General: alert, no acute distress ENMT: oral mucosa moist, no pharyngeal erythema or exudate Cardiovascular: regular rate and rhythm, normal peripheral perfusion Respiratory: Lungs CTA, respirations non labored Extremities: no deformity, no trauma Neurological: oriented x 4, LOC appropriate for age, CN II-XII intact, motor strength equal & normal bilaterally, speech normal Assessment/Plan 1. Hospital discharge follow-up (Z09: Encounter for follow-up examination after completed treatment for conditions other than malignant neoplasm) I reviewed patient's discharge records. Reviewed his medication reconciliation. 2. Paroxysmal A-fib (I48.0: Paroxysmal atrial fibrillation) Patient is rate controlled at this time. No concerns. Continue on Eliquis. 3. Peripheral vascular disease (I73.9: Peripheral vascular disease, unspecified) No issues at this time. If patient has worsening blood flow in his legs, we will send to vascular for further work-up. 4. Mixed hyperlipidemia (E78.2: Mixed hyperlipidemia) Patient is on atorvastatin without any issues at this time. We will continue to have the patient on it. I have ordered a lipid panel today. 5. Diabetes (E11.9: Type 2 diabetes mellitus without complications) Patient is on Lantus and Humalog sliding scale. No other issues at this time. We will do an A1c to make sure the patient is at goal. We will adjust medication as needed. 6. 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 No other issues at this time. We will do an A1C to make sure the patient is at goal. We will adjust medication as needed. 7. Vascular insufficiency (I99.8: Other disorder of circulatory system) At this time, patient uses wraps on his legs. No need for diuretics at this time. 8. At risk for falls (Z91.81: History of falling) Patient already has a two wheeled walker and a wheelchair already ordered. We will assist as needed. 9. BMI 32.0-32.9,adult (Z68.32: Body mass index [BMI] 32.0-32.9, adult) BMI education given. 10. Non-smoker (Z78.9: Other specified health status) Please continue not to smoke. At this time we will order chronic health care administrator for the patient in case and our navigator will continue to follow the patient from our TCM program. ATTESTATION: Documentation services were performed after patient or guardian consented to allow [facility] [place] to record this visit. NOHEMI production specialist and provider reviewed before signing. NOHEMI: Dara Pasted into Center by Yoko Viera. 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 [facility] Comment on above: Result Comment: Elec tronically Signed By: Gilson Salgado MD\.br\Date and Time Signed: 06/09/22 11:07 EDT\.br\Electronically Co-Signed By: Yoko Viera\.br\Date and Time Co-Signed: 06/08/22 20:45 EDT Prison Recordson 06-09 Prison Records [id number] 0CD:[address] [facility] RAD - Ultrasound Reporton RAD - Ultrasound Report [id number] 0CD:[address] [facility] Retail - Clinical Noteon Retail - Clinical Note [id number] 0CD:[address] [facility] Formson 05-04-2022 Forms [id number] 0CD:[address] [facility] CHEMISTRYOrdered By: Lab ROP User on 04-26-2022 Glucose [Mass/Vol] 227 mg/dL High 55 - 99 mg/dL FTM C POC Subsection Comment on above: Result Comment: Radha tony Meter POC Device SN [id number] Invalid Interpretation Code [facility] POC Subsection POC User ID [id number] Invalid Interpretation Code [facility] POC Subsection POC Username LIAM SAWYER Invalid Interpretation Code [facility] POC Subsection Glucose [Mass/Vol] 152 mg/dL High 55 - 99 mg/dL FTM C POC Subsection Comment on above: Result Comment: Radha tony Meter POC Device SN [id number] Invalid Interpretation Code [facility] POC Subsection POC User ID [id number] Invalid Interpretation Code [facility] POC Subsection POC Username LIAM SAWYER Invalid Interpretation Code [facility] POC Subsection MICRO OTHER TESTSOrdered By: Aurora Dugan on 04-26-2022 Rapid COV Int NEG Ctl Pass (04/26/22 11:03 AM) Normal [facility] Man Sero Rapid COV Int POS Ctl Pass (04/26/22 11:03 AM) Normal [facility] Man Sero SARS-CoV+SARS-CoV-2 (COVID-19) Ag IA.rapid Ql (Resp) Not Detected (04/26/22 11:03 AM) Normal Not Detected [facility] Man Sero CHEMISTRYOrdered By: Lab ROP User on 04-25-2022 Glucose [Mass/Vol] 232 mg/dL High 55 - 99 mg/dL FTM C POC Subsection Comment on above: Result Comment: Jane garcia RN/ POC Device SN [id number] Invalid Interpretation Code [facility] POC Subsection POC User ID [id number] Invalid Interpretation Code [facility] POC Subsection POC Username EFREN MONTOYA Invalid Interpretation Code [facility] POC Subsection BLOOD BANKOrdered By: Daxa Gomes on 04-24-2022 ABO/Rh Retype Interp Positive Invalid Interpretation Code [facility] BB Subsection CHEMISTRYOrdered By: SYSTEM SYSTEM on 04-24-2022 Anion gap [Moles/Vol] 11 mmol/L Normal 6 - 16 mEq/L F [facility] Remisol Calcium [Mass/Vol] 8.8 mg/dL Low 8.9 - 11. 1 mg/dL [facility] Chloride [Moles/Vol] 104 mmol/L Normal 101 - 1 11 mmol/L [facility] Remisol CK [Catalytic activity/Vol] 344 [iU]/d Invalid Interpretation Code 14 - 261 Int._Unit/L [facility] Comment on above: Result Comment: Crit ical Result verified by repeat analysis\Critical Result S_CK:[id number] Called to ASTRID FIGUEROA AT 3N by ILAN VALADEZ and read back for confirmation at 04/24/2022 06:42:39 CO2 [Moles/Vol] 27 mmol/L Normal 21 - 31 mmol/L [facility] Creatinine [Mass/Vol] 1.3 mg/dL Normal 0.5 - 1.3 mg/dL [facility] Glucose [Mass/Vol] 292 mg/dL High 55 - 199 mg/dL [facility] Potassium [Moles/Vol] 4.0 mmol/L Normal 3.5 - 5.3 mmol/L [facility] Sodium [Moles/Vol] 138 mmol/L Normal 135 - 145 mmol/L [facility] Troponin I.cardiac [Mass/Vol] 115.40 pg/mL Invalid Interpretation Code 15.90 - 38.40 pg/mL [facility] Comment on above: Result Comment: Crit ical Result verified by previous result\ Critical Result I_hsTnI:115.4 Called to ASTRID FIGUEROA at 3N by ILAN VALADEZ and read back for confirmation at 04/24/2022 06:42:59 Urea nitrogen [Mass/Vol] 26 mg/dL High 5 - 21 mg/dL [facility] Urea nitrogen/Creatinine [Mass ratio] 20 mg/mg Normal 10 - 20 [facility] Troponin I.cardiac [Mass/Vol] 138.10 pg/mL Invalid Interpretation Code 15.90 - 38.40 pg/mL [facility] Comment on above: Result Comment: Crit ical Result verified by previous result\ Critical Result I_hsTnI:138.1 Called to ASTRID FIGUEROA at 3N by HEMANTH VENTURA and read back for confirmation at 04/24/2022 03:06:42 CHEMISTRYOrdered By: Yamilet Comer on 04-24-2022 HbA1c (Bld) [Mass fraction] 8.4 % High <=5.9% [facility] ChemAutoSS HEMATOLOGYOrdered By: SYSTEM SYSTEM on 04-24-2022 Basophils/100 WBC (Bld) 0.5 % Normal 0.0 - 2.0 % [facility] HemeAutoSS Basophils/Leukocytes Auto (Bld) [Pure # fraction] 0.0 E9/L Normal 0.0 - 0.2 E9/L [facility] HemeAutoSS Eosinophils/100 WBC (Bld) 0.7 % Normal 0.0 - 8.0 % [facility] HemeAutoSS Eosinophils/Leukocytes Auto (Bld) [Pure # fraction] 0.1 E9/L Normal 0.0 - 0.5 E9/L [facility] HemeAutoSS Lymphocytes/100 WBC (Bld) 15.3 % Normal 14.0 - 50.0 % [facility] HemeAutoSS Lymphocytes/Leukocytes Auto (Bld) [Pure # fraction] 1.3 E9/L Normal 1.0 - 4.0 E9/L [facility] HemeAutoSS Monocytes/100 WBC (Bld) 13.0 % Normal 4.0 - 14.0 % [facility] HemeAutoSS Monocytes/Leukocytes Auto (Bld) [Pure # fraction] 1.1 E9/L High 0.2 - 1.0 E9/L [facility] HemeAutoSS Neutrophils/100 WBC (Bld) 70.5 % Normal 36.0 - 75.0 % [facility] HemeAutoSS Neutrophils/Leukocytes Auto (Bld) [Pure # fraction] 5.8 E9/L Normal 2.0 - 7.5 E9/L [facility] HemeAutoSS HEMATOLOGYOrdered By: Rajiv Ventura on 04-24-2022 Erythrocyte distribution width (RBC) [Ratio] 13.6 % Normal 10.9 - 14.2 % [facility] HemeAutoSS Hematocrit (Bld) [Volume fraction] 39.0 % Normal 37.7 - 49.0 % [facility] HemeAutoSS Hemoglobin (Bld) [Mass/Vol] 13.0 g/dL Low 13.5 - 17.5 gm/dL [facility] HemeAutoSS MCH (RBC) [Entitic mass] 29.0 pg Normal 27.0 - 34.0 pg [facility] HemeAutoSS MCHC (RBC) [Mass/Vol] 33.4 g/dL Normal 31.4 - 36.0 gm/dL [facility] HemeAutoSS MCV (RBC) [Entitic vol] 86.7 fL Normal 80.0 - 100.0 fL [facility] HemeAutoSS Platelet mean volume (Bld) [Entitic vol] 8.2 fL Normal 6.4 - 10.8 fL [facility] HemeAutoSS Platelets (Bld) [#/Vol] 136.0 E9/L Low 150.0 - 500.0 E9/L [facility] HemeAutoSS RBC (Bld) [#/Vol] 4.5 E12/L Normal 4.3 - 5.9 E12/L [facility] HemeAutoSS WBC corrected for nucl RBC Auto (Bld) [#/Vol] 8.2 E9/L Normal 4.0 - 11.0 E9/L [facility] HemeAutoSS BLOOD BANKOrdered By: Rajiv Ventura on 04-23-2022 ABO/Rh Interp Positive Invalid Interpretation Code [facility] BB Subsection ABSC Gel Interp Negative (04/23/22 6:46 PM) Normal [facility] BB Subsection CHEMISTRYOrdered By: SYSTEM SYSTEM on 04-23-2022 Troponin I.cardiac [Mass/Vol] 134.80 pg/mL Invalid Interpretation Code 15.90 - 38.40 pg/mL [facility] Comment on above: Result Comment: Crit ical Result verified by previous result\ Critical Result I_hsTnI:134.8 Called to ARUN GREENBERG at 3N by HEMANTH VENTURA and read back for confirmation at 04/24/2022 00:30:20 Albumin [Mass/Vol] 4.0 g/dL Normal 3.3 - 5.0 gm/dL [facility] Remisol Albumin/Globulin [Mass ratio] 1.1 {ratio} Normal 1.1 - 2.2 [facility] ALP [Catalytic activity/Vol] 58 [iU]/d Normal 21 - 98 Int._Unit/L [facility] ALT No additional P-5'-P [Catalytic activity/Vol] 24 [iU]/d Normal 6 - 46 Int._Unit/L [facility] Amphetamines Screen method >1000 ng/mL Ql (U) Negative (04/23/22 6:46 PM) Normal Negative [facility] Remisol Anion gap [Moles/Vol] 14 mmol/L Normal 6 - 16 mEq/L F [facility] Rem[facility] AST [Catalytic activity/Vol] 31 [iU]/d Normal 5 - 43 Int._Unit/L [facility] Barbiturates Screen Ql (U) Negative (04/23/22 6:46 PM) Normal Negative [facility] Remisol Benzodiazepines Ql (U) Negative (04/23/22 6:46 PM) Normal Negative [facility]isol Bilirubin [Mass/Vol] 0.7 mg/dL Normal 0.0 - 1 .1 mg/dL [facility] Bilirubin.direct [Mass/Vol] 0.2 mg/dL Normal 0.1 - 0.4 mg/dL [facility] Remisol Bilirubin.indirect [Mass or moles/Vol] 0.5 mg/dL Normal 0.1 - 0.9 mg/dL [facility] Calcium [Mass/Vol] 9.1 mg/dL Normal 8.9 - 11. 1 mg/dL [facility] Chloride [Moles/Vol] 100 mmol/L Low 101 - 1 11 mmol/L [facility] CO2 [Moles/Vol] 28 mmol/L Normal 21 - 31 mmol/L [facility] Cocaine Ql (U) Negative (04/23/22 6:46 PM) Normal Negative [facility] Remisol Creatinine [Mass/Vol] 1.6 mg/dL High 0.5 - 1.3 mg/dL [facility] Ethanol [Mass/Vol] mg/dL Normal <=7mg/dL [facility] Globulin (S) [Mass/Vol] 3.5 g/dL Normal 1.4 - 4.0 gm/dL [facility] Glucose [Mass/Vol] 354 mg/dL High 55 - 199 mg/dL [facility] Lactate [Mass/Vol] 1.5 mmol/L Normal 0.5 - 2.2 mmol/L [facility] Lipase [Catalytic activity/Vol] 27 U/L Normal 13 - 58 unit/L [facility] Opiates Screen Ql (U) Negative (04/23/22 6:46 PM) Normal Negative [facility] Phencyclidine Screen method >25 ng/mL Ql (U) Negative (04/23/22 6:46 PM) Normal Negative [facility] Potassium [Moles/Vol] 4.3 mmol/L Normal 3.5 - 5.3 mmol/L [facility] Protein [Mass/Vol] 7.5 g/dL Normal 6.0 - 7.8 gm/dL [facility] Sodium [Moles/Vol] 138 mmol/L Normal 135 - 145 mmol/L [facility] Tetrahydrocannabinol Screen method >50 ng/mL Ql (U) Negative (04/23/22 6:46 PM) Normal Negative [facility] Urea nitrogen [Mass/Vol] 29 mg/dL High 5 - 21 mg/dL [facility] Urea nitrogen/Creatinine [Mass ratio] 18 mg/mg Normal 10 - 20 [facility] COAGULATIONOrdered By: Jose Almonte on 04-23-2022 aPTT Coag (PPP) [Time] 36.5 s Normal 25.1 - 36.5 second(s) [facility] Auto Coag INR Coag (PPP) [Relative time] 1.4 {INR} Invalid Interpretation Code [facility] Auto Coag PT Coag (PPP) [Time] 16.1 s High 9.4 - 1 2.5 second(s) [facility] Auto Coag HEMATOLOGYOrdered By: SYSTEM SYSTEM on 04-23-2022 Basophils/100 WBC (Bld) 0.2 % Normal 0.0 - 2.0 % [facility] HemeAutoSS Basophils/Leukocytes Auto (Bld) [Pure # fraction] 0.0 E9/L Normal 0.0 - 0.2 E9/L [facility] HemeAutoSS Eosinophils/100 WBC (Bld) 3.6 % Normal 0.0 - 8.0 % [facility] HemeAutoSS Eosinophils/Leukocytes Auto (Bld) [Pure # fraction] 0.3 E9/L Normal 0.0 - 0.5 E9/L [facility] HemeAutoSS Lymphocytes/100 WBC (Bld) 19.3 % Normal 14.0 - 50.0 % [facility] HemeAutoSS Lymphocytes/Leukocytes Auto (Bld) [Pure # fraction] 1.4 E9/L Normal 1.0 - 4.0 E9/L [facility] HemeAutoSS Monocytes/100 WBC (Bld) 12.2 % Normal 4.0 - 14.0 % [facility] HemeAutoSS Monocytes/Leukocytes Auto (Bld) [Pure # fraction] 0.9 E9/L Normal 0.2 - 1.0 E9/L [facility] HemeAutoSS Neutrophils/100 WBC (Bld) 64.7 % Normal 36.0 - 75.0 % [facility] HemeAutoSS Neutrophils/Leukocytes Auto (Bld) [Pure # fraction] 4.6 E9/L Normal 2.0 - 7.5 E9/L [facility] HemeAutoSS HEMATOLOGYOrdered By: Rajiv Ventura on 04-23-2022 Erythrocyte distribution width (RBC) [Ratio] 13.6 % Normal 10.9 - 14.2 % [facility] HemeAutoSS Hematocrit (Bld) [Volume fraction] 44.5 % Normal 37.7 - 49.0 % [facility] HemeAutoSS Hemoglobin (Bld) [Mass/Vol] 14.6 g/dL Normal 13.5 - 17.5 gm/dL [facility] HemeAutoSS MCH (RBC) [Entitic mass] 29.0 pg Normal 27.0 - 34.0 pg [facility] HemeAutoSS MCHC (RBC) [Mass/Vol] 32.8 g/dL Normal 31.4 - 36.0 gm/dL [facility] HemeAutoSS MCV (RBC) [Entitic vol] 88.2 fL Normal 80.0 - 100.0 fL [facility] HemeAutoSS Platelet mean volume (Bld) [Entitic vol] 8.1 fL Normal 6.4 - 10.8 fL [facility] HemeAutoSS Platelets (Bld) [#/Vol] 151.0 E9/L Normal 150.0 - 500.0 E9/L [facility] HemeAutoSS RBC (Bld) [#/Vol] 5.0 E12/L Normal 4.3 - 5.9 E12/L [facility] HemeAutoSS WBC corrected for nucl RBC Auto (Bld) [#/Vol] 7.1 E9/L Normal 4.0 - 11.0 E9/L [facility] HemeAutoSS ECHOCARDIO M/2D COMPLETEon 0 02-18-2022 ECHOCARDIO M/2D COMPLETE Patient: ZAIRA SEGURA Exam Date: 02/18/2022 : 1935 Gender:M Ordering : TARA DANIELMNAlejandro Admission #: [id number] Family : DR DOMINGO MEDRANO . Order #: [id number] CLICK HERE TO VIEW EXAM ECHOCARDIOGRAM REPORT PROCEDURE: CARDIO PULMONARY ECHOCARDIO M/2D COMP INDICATIONS: Dyspnea on exertion, h/o atrial fibrillation COMPARISON: None. DESCRIPTION: COMPLETE ECHOCARDIOGRAM Real-time transthoracic echocardiography with 2D, M-mode, spectral and color flow Doppler performed. QUALITY: Technical quality was good. [id number]# BP 140/80 LEFT VENTRICLE: Normal chamber size. Moderate concentric left ventricular hypertrophy. LV EF: Normal left ventricular ejection fraction, (>55%). DIASTOLIC: Normal diastolic function. ATRIAL SEPTUM: Visually appears intact. LEFT ATRIUM: Normal chamber size. RIGHT ATRIUM: Normal chamber size. RIGHT VENTRICLE: Normal chamber size. Normal right ventricular systolic function. TRICUSPID VALVE: Normal mobility and thickness. No stenosis with no regurgitation. Unable to assess right-sided pressures due to lack of measurable tricuspid rotation. MITRAL VALVE: Normal mobility and thickness. No evidence of mitral valve stenosis. There is no mitral annular calcification. No mitral regurgitation. AORTIC VALVE: Normal trileaflet appearance. Thickened aortic valve. Normal leaflet mobility. No evidence of aortic valve stenosis. No aortic regurgitation. AORTIC ROOT: Normal diameter and appearance. PULMONIC VALVE: Not well visualized. No stenosis. Mild regurgitation. PERICARDIUM: Anterior free space; trivial effusion versus fat pad. IVC: Collapses with inspirations. CONCLUSION: Global left ventricular systolic function is normal; visually estimated ejection fraction is 55 to 60%. No obvious wall motion abnormalities. Moderate left ventricular hypertrophy. Normal diastolic function. The left atrium is normal in size. The right ventricle is normal in size and systolic function. Mild pulmonic regurgitation. Anterior free space; trivial effusion versus fat pad. Adult Echocardiography Procedure Report Left Ventricle LVEDD (3.7 - 5.6 cm): 4.42 cm LVESD (2.2 - 4.0 cm): 3.10 cm LVIVS thickness (0.6 - 1.2 cm): 1.61 cm LVPW thickness (0.5 - 1.0 cm): 1.25 cm e': 0.07 m/s E - e': 7.45 LVOT Max Gradient: 2.12 mm[Hg] Peak Velocity (LVOT): 0.73 m/s LVOT Diameter 2.52 cm Left Ventricular Ejection Fraction: 57.39 %, 57.39 % Left Atrium LA Volume Index (2D A2C): 52.44 ml, 52.44 ml Left Atrium Systolic Dimension: 3.04 cm Mitral Valve MV E to A Ratio: 0.69 Mitral Valve A-Wave Peak Velocity: 0.77 m/s Mitral Valve E-Wave Peak Velocity: 0.53 m/s Right Ventricle Aorta AO Root Diam: 3.03 cm Aortic Valve AoV Area ([place]): 2.92 cm2, 2.92 cm2 Peak Velocity(Antegrade Flow): 1.24 m/s Peak Gradient(Antegrade Flow): 6.18 mm[Hg] Mean Velocity(Antegrade Flow): 0.82 m/s Mean Gradient(Antegrade Flow): 3.13 mm[Hg] Velocity Time Integral: 21.65 cm Tricuspid Valve Peak Velocity: 0.38 m/s Pulmonic Valve Peak Velocity: 1.07 m/s, 1.26 m/s Peak Gradient: 4.61 mm[Hg], 6.36 mm[Hg] Right Atrium Right Atrium Systolic Pressure: 30.62 ml, 30.62 ml Dictated by: Stuart You M.D. on 02/19/2022 at 13:54 Approved by: Stuart You M.D. on 02/19/2022 at 14:03 Normal [facility] BNPon 07-28-2021 Natriuretic peptide B (Bld) [Mass/Vol] 157.0 pg/mL Normal <=1,800.0 [facility] Comment on above: Performed By: #### B CHEMICAL RECLAMATION EQUIPMENT OPERATOR #### [facility] [address] [place] [address] Dr. Nitish Thakur Vancomycin,Troughon 09-04-19 21 Vancomycin,Trough 16.5 ug/mL Normal 10.0-20.0 [facility] Comment on above: Result Comment: Last dose: - PERFORMED BY: [place] [address] PATHOLOGIST ELECTRONIC EQUIPMENT REPAIRER KATE LOTT M.D. Performed By: #### V ANCT #### [address] Vital Signs Date Time Vital Sign Value Performing Clinician Ely crandall 04-26-2022 12:52-0400 Hourly Rounding Sixto RENATO [facility] 04-26-2022 12:52-0400 Promise to Return Sixto RENATO [facility] 04-26-2022 11:52-0400 Hourly Rounding Sixto RENATO [facility] 04-26-2022 11:52-0400 Promise to Return Sixto RENATO [facility] 04-26-2022 11:39-0400 gluc 227 mg/dL Sixto RENATO [facility] 04-26-2022 11:00-0400 Body temperature 98.06 [degF] Sixto RENATO [facility] 04-26-2022 11:00-0400 Heart rate 66 /min Sixtoelvira VILCHISSLIN [facility] 04-26-2022 11:00-0400 SaO2% (BldA) [Mass fraction] 97 % Sixtoelvira VILCHISSLIN [facility] 04-26-2022 11:00-0400 Systolic blood pressure 164 mm[Hg] Sixto RENATO [facility] 04-26-2022 10:36-0400 Hourly Rounding Sixtoelvira V[place]CHISSLIN [facility] 04-26-2022 10:36-0400 Promise to Return Sixtoelvira V[place]CHISSLIN [facility] 04-26-2022 08:50-0400 Diastolic blood pressure 76 mm[Hg] Sixto RENATO [facility] 04-26-2022 08:50-0400 Heart rate 76 /min Sixtoelvira V[place]CHISSLIN [facility] 04-26-2022 08:50-0400 Systolic blood pressure 126 mm[Hg] Sixto RENATO [facility] 04-26-2022 08:00-0400 Body temperature 98.42 [degF] Sixtoelvira V[place]CHISSLIN [facility] 04-26-2022 07:30-0400 Heart rate 69 /min Sixto RENATO [facility] 04-26-2022 07:30-0400 Mean blood pressure 93 mm[Hg] Sixto RENATO [facility] 04-26-2022 07:30-0400 Respiratory rate 16 /min Sixtoelvira V[place]IS[place]IN [facility] 04-26-2022 05:24-0400 Body temperature 97.52 [degF] Sixto RENATO [facility] 04-26-2022 05:24-0400 Mean blood pressure 102 mm[Hg] Sixto RENATO [facility] 04-26-2022 05:24-0400 Respiratory rate 16 /min Sixto RENATO [facility] 04-26-2022 05:24-0400 SaO2% (BldA) [Mass fraction] 98 % Sixtoelvira VILCHISSLIN [facility] 04-26-2022 01:00-0400 Heart rate 67 /min Sixtoelvira V[place] [facility] 04-26-2022 01:00-0400 Mean blood pressure 100 mm[Hg] Sixto RENATO [facility] 04-26-2022 01:00-0400 Respiratory rate 16 /min Sixtoelvira V[place]CHISSLIN [facility] 04-25-2022 18:56-0400 Blood Pressure Location Sixto RENATO [facility] 04-25-2022 18:32-0400 Heart rate 80 /min Sixto RENATO [facility] 04-25-2022 16:40-0400 Heart rate 72 /min Sixto RENATO [facility] 04-25-2022 15:10-0400 Mean blood pressure 111 mm[Hg] Sixto RENATO [facility] 04-25-2022 10:56-0400 Mean blood pressure 101 mm[Hg] Sixto RENATO [facility] 04-25-2022 07:00-0400 Body temperature 97.88 [degF] Sixto GROSS [facility] 04-25-2022 00:12-0400 Mean blood pressure 100 mm[Hg] Sixto GROSS [facility] 04-25-2022 00:00-0400 Blood Pressure Location Sixto GROSS [facility] 04-25-2022 00:00-0400 Body temperature 98.24 [degF] Sixto GROSS [facility] 04-24-2022 08:08-0400 Body temperature 99.14 [degF] Sixtoelvira VILCHISSLIN [facility] Encounters Encounter Date Encounter Type Care Provider Facility Start: 06-02-2023 End: 06-02-2023 ambulatory [facility] Start: 05-05-2023 End: 05-05-2023 ambulatory PATRICK ADKINS Not Available Start: 05-02-2023 End: 05-03-2023 ambulatory Gilson Salgado Facility:[facility] Start: 04-20-2023 End: 04-21-2023 ambulatory Gilson Salgado Facility:[facility] Start: 04-20-2023 End: 04-20-2023 Lab Drop off Gilson Salgado [facility] Start: 02-03-2023 End: 02-03-2023 ambulatory PATRICK ADKINS Not Available Start: 01-11-2023 End: 01-11-2023 ambulatory [facility] Start: 11-19-2022 End: 11-20-2022 ambulatory Gilson Salgado Facility:[facility] Start: 10-26-2022 End: 10-26-2022 [facility] Start: 10-25-2022 End: 10-26-2022 ambulatory Gilson Salgado Facility:[facility] Start: 10-21-2022 End: 11-22-2022 ambulatory Gilson Salgado Facility:[id number] Start: 10-18-2022 Evaluation and management of inpatient [facility] Start: 10-14-2022 Evaluation and management of inpatient [facility] Start: 10-14-2022 [facility] Start: 10-14-2022 End: 10-19-2022 Evaluation and management of inpatient CYN [facility] Start: 07-27-2022 End: 07-27-2022 ambulatory ANOOP REDDY [facility] Start: 07-21-2022 End: 07-22-2022 ambulatory [facility] Start: 07-21-2022 End: 07-21-2022 ambulatory [facility] Start: 07-13-2022 End: 07-13-2022 ambulatory CELIO SINGLETARY [facility] Start: 07-07-2022 ambulatory TARA CARDENAS Facility:H 1 Start: 06-29-2022 End: 06-29-2022 ambulatory [facility] Start: 06-25-2022 End: 06-26-2022 ambulatory Gilson Salgado Facility:[facility] Start: 06-08-2022 End: 06-09-2022 ambulatory Gilson Salgado Facility:[facility] Start: 06-08-2022 End: 06-08-2022 Lab Drop off Gilson Salgado [facility] Start: 06-08-2022 End: 06-23-2022 ambulatory Gilson Salgado Facility:[id number] Start: 04-26-[address] YASEMIN ALBRIGHT Facility :[facility]1 Start: 04-23-2022 End: 04-26-2022 Observation Sixto GROSS [facility] Start: 04-08-2022 End: 04-08-2022 ambulatory CRICKET TIERNEY Facility:H1 Start: 03-11-2022 End: 03-11-2022 ambulatory CRICKET TIERNEY Facility:[facility]1 Start: 02-24-2022 ambulatory TARA DANIELMNAlejandro Facility:H 1 Start: 02-18-2022 End: 02-19-2022 ambulatory TARA DANIELMNAlejandro Facility:[facility]1 Start: 12-28-2021 End: 12-29-2021 ambulatory [facility] Facility:[facility]1 Start: 10-26-2021 End: 10-27-2021 ambulatory [facility] Facility:[facility]1 Start: 09-28-2021 End: 09-29-2021 ambulatory [facility] Facility:[facility]1 Start: 08-21-2021 End: 08-22-2021 ambulatory [facility] Facility:[facility]1 Start: 07-31-2021 End: 08-01-2021 ambulatory [facility] Facility:[facility]1 Start: 07-28-2021 End: 07-29-[address] NONE LISTED REQUEST Facility:H1 Start: 07-24-2021 End: 07-25-2021 ambulatory [facility] Facility:[facility]1 Procedures Date Procedure Procedure Detail Performing Clinician Start: 07-21-2022 Cardiac catheter (ph ysical object) Gilson Salgado Start: 06-29-2022 Follow-up visit Follow-up TARA CUNHA Angioplasty of blood vessel iSxto GROSS Comment on above: Rt leg 2020 Cataract (disorder) Gilson stewart Comment on above: summer 2022 Inguinal hernia (disorder) Lidia GROSS Stent, device (physi maribel object) Sixto GROSS Comment on above: Rt Leg 2020 Surgical procedure Sixto WHITE Comment on above: Rt foot for infectio n Plan of Treatment Date Care Activity Detail Author Start: 11-22-2023 ambulatory Ambulatory Facility:[facility] Start: 08-02-2023 ambulatory Ambulatory Facility:[facility] Immunizations Immunization Date Immunization Notes Care Provider Fa willy 01-04-2022 pneumococcal 20-anne marie nt conjugate vaccine Sixto GROSS [facility] 01-04-2022 SARS-CoV-2 (COVID-19 ) [id number] Sixto VILCHISSLIN [facility] 12-08-2020 SARS-CoV-2 (COVID-19 ) mRNA BNT-162b2 vax Sixto KRISHNALIN [facility] Comment on above: Result Comment: 2022: [id number] 06-04-2020 SARS-CoV-2 (COVID-19 ) mRNA BNT-162b2 vax Sixto KRISHNALIN [facility] 05-14-2020 SARS-CoV-2 (COVID-19 ) mRNA BNT-162b2 vax Sixto KRISHNALIN [facility] Payers Date Payer Category Payer Medicare [id number] 1957 Self-pay [id number] 1957 Unknown [id number] 1937 Unknown [id number] 2.16.84 0.1.279954.3.579.2.593 1937 Unknown [id number] 0.1.060629.3.579.2.593 1937 Unknown [id number] 2.16.84 0.1.868241.3.579.2.593 1937 Unknown [id number] 2..84 0.1.976240.3.579.2.593 1937 Unknown [id number] 2.16.84 0.1.590171.3.579.2.593 1937 Unknown [id number] 2.16.84 0.1.627714.3.579.2.593 1937 Unknown [id number] 2.16.84 0.1.307470.3.579.2.593 1937 Unknown [id number] 2.16.84 0.1.893845.3.579.2.593 1937 Unknown [id number] 2.16.84 0.1.883589.3.579.2.593 1937 Unknown [id number] 2.16.84 0.1.237281.3.579.2.593 1937 Unknown [id number] 2.16.84 0.1.972444.3.579.2.593 1937 Unknown [id number] 2.16.84 0.1.110502.3.579.2.593 1937 Unknown [id number] 2.16.84 0.1.411961.3.579.2.593 1937 Unknown [id number] 2.16.84 0.1.844643.3.579.2.593 1937 Unknown [id number] 2.16.8 40.1.305962.3.579.2.727 1937 Unknown [id number] 2.16.8 40.1.644685.3.579.2.727 1937 Unknown [id number] 2.16.8 40.1.484074.3.579.2.727 1937 Unknown [id number] 2.16.8 40.1.657118.3.579.2.727 1937 Unknown [id number] 2.16.8 40.1.935055.3.579.2.727 1937 Unknown [id number] 2.16.8 40.1.227602.3.579.2.727 1937 Unknown [id number] 2.16.8 40.1.725529.3.579.2.727 1937 Unknown [id number] 2.16.8 40.1.568213.3.579.2.727 1937 Unknown [id number] 2.16.8 40.1.740339.3.579.2.727 1937 Unknown [id number] 2.16.8 40.1.521447.3.579.2.727 1937 Unknown [id number] 2.16.8 40.1.813149.3.579.2.727 1937 Unknown [id number] 2.16.84 0.1.515635.3.579.2.1259 1937 Unknown [id number] 2.16.840 .1.303079.3.579.2.1259 Social History Date Type Detail Facility Tobacco smoking status No Smokin g Status Entered [facility] Sex Assigned At Male [facility] Start: 06-08-2022 End: 04-20-2023 Tobacco smoking status Never smoked tobacco (finding) [facility] Comment on above: denies Tobacco smoking status Never [facility] Comment on above: denies Medical Equipment Procedure Code Equipment Code Equipment Origin al Text Equipment Identifier Dates USE 3 TIMES GLORIA Y WITH INSULIN Start: 04-19-2022 USE 3 TIMES GLORIA Y WITH INSULIN Start: 04-19-2022 USE 3 TIMES GLORIA Y WITH INSULIN Start: 04-19-2022 USE 3 TIMES GLORIA Y WITH INSULIN Start: 04-19-2022 USE 3 TIMES GLORIA Y WITH INSULIN Start: 04-19-2022 pen needles, See Instructions, 300 EA, 1, BD UF maida pen needle 4mm x 32g E11.9, [id number], Supply, 180, cm, 11/19/22 9:02:00 EDT, Height/Length Dosing, 102.7, kg, 11/19/22 9:02:00 EDT, Weight Dosing Start: 01-19-2024 Functional Status Date Assessment Result Facility 04-23-2022 Functional Status N/A [facility] 04-23-2022 Functional Status [facility] Clinical Notes 03-11-2022 to 06-02-2023 Note Date & Type Note Facility 06-02-2023 Note Patient here for 4 m o follow up typical atrial flutter, CAD, HFrEF, and hypertension. He is only taking losartan 25mg once a day now. Farxiga was also reduced to 5mg daily due to urinary side effects. Has intermittent chest pain after eating. Also gets chest soreness when he lies in bed on his left side. When lying supine he does not feel this. Denies SOB, palpitations, lightheadedness/syncope, and bleeding on Eliquis. Review of Systems Constitutional: Positive for malaise/fatigue. Cardiovascular: Positive for chest pain and leg swelling (minimal). Respiratory: Negative. All other systems reviewed and are negative. [facility] 06-02-2023 Note Cardiovascular Medic [facility] SUBJECTIVE Chief Complaint Patient presents with Atrial Fibrillation Congestive Heart Failure Coronary Artery Disease Hypertension Zaira Segura III is a 88 y.o. male here for follow-up. HPI Patient here for 4 mo follow up typical atrial flutter, CAD, HFrEF, and hypertension. He is only taking losartan 25mg once a day now. Farxiga was also reduced to 5mg daily due to urinary side effects. Has intermittent chest pain after eating. Also gets chest soreness when he lies in bed on his left side. When lying supine he does not feel this. Denies SOB, palpitations, lightheadedness/syncope, and bleeding on Eliquis. 06/02/23 He has some midsternal chest pain when he lays on his left side, resolves with changing positions. He has some dyspnea on exertion. He c/o easy bleeding. He has some LE edema, seems stable. He is upset today as he did not past his recent driving test. 01/11/23 Pt is feeling better. He did not start Zetia because RX was not sent in. He would like to stop taking Farxiga due to yeast issues. Denies palpitations, lightheadedness, and bleeding on Eliquis. Had BMP last week. PCP has cut losartan back to 25mg daily due to hypotension and he is off Aldactone. HPI: Zaira Segura III is a 87 y.o. year old with past medical history of severe calcified CAD, acute on chronic HFrEF with EF 40%, CKD stage III, hypertension, and hyperlipidemia, atrial flutter, dm2, PAD. He has history of severe triple-vessel disease and has refused CABG in the past, He was just recently admitted to [facility] and had PCI of LAD and LCx with SUMEET. Here is here for hospital follow up Has been doing well with no complaints of CP, SOB, PRASAD Previous HPI per Dr. Singletary: Chief Complaint: Atrial flutter History of Present Illness: Mr. Segura is a 86-year-old gentleman with a past medical history of diabetes mellitus type 2, peripheral arterial disease, hypertension, who was diagnosed with atrial flutter while he was inpatient at [facility] for a foot wound. He was started on Eliquis and beta-blockers at that time. Since then he has been battling the issue of his right foot infection. He is very unhappy about his foot situation saying that this is limited his activity. He used to previously bike a lot specially many was in [place]. He denied any active chest pain but stated that he has felt some fatigue mainly due to inactivity. He seemed to be tolerating his Eliquis without any significant bleeding issues. EKG 08/04/2021 in the clinic shows sinus rhythm with PAC EKG 10/02/2020: SR ECHO 10/02/2020 1. Normal ventricular systolic function 2. Mild diastolic dysfunction 3. Normal right-sided pressures 4. 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) Neurological disorder Mixed hyperlipidemia Chronic venous hypertension NSTEMI (non-ST elevated myocardial infarction) (CMS/HCC) Cardiomyopathy, ischemic Past Medical History: Diagnosis Date Arrhythmia Atrial flutter (CMS/HCC) Diabetes ([facility]/HCC) Hypertension Family History Problem Relation Name Age of Onset Other (coronary artery bypass graft) Father Heart failure Sister Social History Tobacco Use Smoking status: Never Smokeless tobacco: Never Substance Use Topics Alcohol use: Not Currently Allergies Allergen Reactions Multivitamin Unknown Niacin Cause sweating ROS Constitutional: Positive for malaise/fatigue. Cardiovascular: Positive for chest pain and leg swelling (minimal). Respiratory: Negative. All other systems reviewed and are negative. OBJECTIVE Visit Vitals BP 130/70 (BP Location: Left arm, Patient Position: Sitting) Pulse 67 Ht 1.854 m (6' 1 ) Wt 106 kg (234 lb) SpO2 99% BMI 30.87 kg/m??? Smoking Status Never BSA 2.34 m??? Medications: Current Outpatient Medications: insulin glargine (Lantus) 100 unit/mL (3 mL) pen, INJECT 28 UNITS TWICE DAILY, MAY BE ADJUSTED UP TO 30 UNITS, Disp: , Rfl: insulin lispro (HumaLOG) 100 unit/mL injection, PLEASE SEE ATTACHED FOR DETAILED DIRECTIONS, Disp: , Rfl: apixaban (Eliquis) 5 mg tablet, Take 1 tablet (5 mg) by mouth in the morning and at bedtime., Disp: 180 tablet, Rfl: 3 atorvastatin (Lipitor) 20 mg tablet, Take 1 tabl (more content not included)... [facility] 01-11-2023 Note [facility] Consult Note Reason for visit: Atrial flutter 01/11/23 Pt is feeling better. He did not start Zetia because RX was not sent in. He would like to stop taking Farxiga due to yeast issues. Denies palpitations, lightheadedness, and bleeding on Eliquis. Had BMP last week. PCP has cut losartan back to 25mg daily due to hypotension and he is off Aldactone. HPI: Zaira Segura III is a 87 y.o. year old with past medical history of severe calcified CAD, acute on chronic HFrEF with EF 40%, CKD stage III, hypertension, and hyperlipidemia, atrial flutter, dm2, PAD. He has history of severe triple-vessel disease and has refused CABG in the past, He was just recently admitted to [facility] and had PCI of LAD and LCx with SUMEET. Here is here for hospital follow up Has been doing well with no complaints of CP, SOB, PRASAD Previous HPI per Dr. Singletary: Chief Complaint: Atrial flutter History of Present Illness: Mr. Segura is a 86-year-old gentleman with a past medical history of diabetes mellitus type 2, peripheral arterial disease, hypertension, who was diagnosed with atrial flutter while he was inpatient at [facility] for a foot wound. He was started on Eliquis and beta-blockers at that time. Since then he has been battling the issue of his right foot infection. He is very unhappy about his foot situation saying that this is limited his activity. He used to previously bike a lot specially many was in [place]. He denied any active chest pain but stated that he has felt some fatigue mainly due to inactivity. He seemed to be tolerating his Eliquis without any significant bleeding issues. EKG 08/04/2021 in the clinic shows sinus rhythm with PAC EKG 10/02/2020: SR ECHO 10/02/2020 1. Normal ventricular systolic function 2. Mild diastolic dysfunction 3. Normal right-sided pressures 4. No significant valvular dysfunction ---- -------- PMH: Past Medical History: Diagnosis Date Arrhythmia Atrial flutter (CMS/HCC) Diabetes (CMS/HCC) Hypertension PSH: Past Surgical History: Procedure Laterality Date HERNIA REPAIR VASCULAR SURGERY SH: Social Determinants of Health Tobacco Use: Low Risk (07/27/2022) Patient History Smoking Tobacco Use: Never Smokeless Tobacco Use: Never Passive Exposure: Not on file Alcohol Use: Not on file Financial Resource Strain: Low Risk (10/13/2022) Overall Financial Resource Strain (CARDIA) Difficulty of Paying Living Expenses: Not hard at all Food Insecurity: Unknown (10/13/2022) Hunger Vital Sign Worried About Running Out of Food in the Last Year: Never true Ran Out of Food in the Last Year: Not on file Transportation Needs: Unknown (10/13/2022) PRAPARE - Transportation Lack of Transportation (Medical): No Lack of Transportation (Non-Medical): Not on file Physical Activity: Not on file Stress: Not on file Social Connections: Not on file Intimate Partner Violence: Unknown (10/13/2022) Humiliation, Afraid, Rape, and Kick questionnaire Fear of Current or Ex-Partner: No Emotionally Abused: Not on file Physically Abused: Not on file Sexually Abused: Not on file Depression: Not on file Housing Stability: Unknown (10/13/2022) Housing Stability Vital Sign Unable to Pay for Housing in the Last Year: Not on file Number of Places Lived in the Last Year: Not on file Unstable Housing in the Last Year: No Allergies: Allergies Allergen Reactions Multivitamin Unknown Niacin Cause sweating Weight: 101kg Vitals: 01/11/23 1433 BP: 102/60 Pulse: 69 SpO2: 98% Meds: Current Outpatient Medications on File Prior to Visit Medication Sig Dispense Refill apixaban (Eliquis) 5 mg tablet Take 1 tablet (5 mg) by mouth in the morning and at bedtime. 60 tablet 11 clopidogrel (Plavix) 75 mg tablet Take 1 tablet (75 mg) by mouth once daily as directed. 90 tablet 3 dapagliflozin propanediol (Farxiga) 10 mg Take 1 tablet (10 mg) by mouth once daily as directed for 360 doses. 90 tablet 3 insulin glargine (Lantus) 100 unit/mL (3 mL) pen INJECT 28 UNITS TWICE DAILY, MAY BE ADJUSTED UP TO 30 UNITS insulin lispro (HumaLOG) 100 unit/mL injection PLEASE SEE ATTACHED FOR DETAILED DIRECTIONS isosorbide mononitrate ER (Imdur) 30 mg 24 hr tablet Take 1 tablet (30 mg) by mouth in the morning. Do not crush or chew. 90 tablet 3 losartan (Cozaar) 50 mg tablet Take 1 tablet (50 mg) by mouth in the morning and at bedtime. (Patient taking differently: Take 25 mg by mouth in the morning.) 60 tablet 11 metoprolol succinate XL (Toprol-XL) 100 mg 24 hr tablet Take 1 tablet (100 mg) by mouth in the morning. Do not crush or chew. 90 tablet 3 [DISCONTINUED] atorvastatin (Lipitor) 20 mg tablet Take 1 tablet (20 mg) by mouth at bedtime for 360 doses. 90 tablet 3 spironolactone (Aldactone) 25 mg tablet Take 1 tablet (25 mg) by m (more content not included)... [facility] 10-26-2022 Note Patient here for [facility]. He underwent PCI of prox LAD and mid LCX on 10/18/[address] Munroe. He will finished aspirin therapy soon and be maintained on Plavix and Eliquis. Denies SOB, lightheadedness, and palpitations. Did have some chest discomfort last night. Review of Systems Constitutional: Positive for malaise/fatigue. Cardiovascular: Positive for chest pain (discomfort). Respiratory: Negative. Gastrointestinal: Positive for heartburn, nausea and vomiting. All other systems reviewed and are negative. [facility] 10-26-2022 Note [facility] Consul t Note Reason for visit: hospital follow upx2 s/p PCI of LAD and LCX 10/08/22, needs CABG but refused HPI: Zaira Segura III is a 87 y.o. year old with past medical history of severe calcified CAD, acute on chronic HFrEF with EF 40%, CKD stage III, hypertension, and hyperlipidemia, atrial flutter, dm2, PAD. He has history of severe triple-vessel disease and has refused CABG in the past, He was just recently admitted to [facility] and had PCI of LAD and LCx with SUMEET. Here is here for hospital follow up Has been doing well with no complaints of CP, SOB, PRASAD Previous HPI per Dr. Singletary: Chief Complaint: Atrial flutter History of Present Illness: Mr. Segura is a 86-year-old gentleman with a past medical history of diabetes mellitus type 2, peripheral arterial disease, hypertension, who was diagnosed with atrial flutter while he was inpatient at [facility] for a foot wound. He was started on Eliquis and beta-blockers at that time. Since then he has been battling the issue of his right foot infection. He is very unhappy about his foot situation saying that this is limited his activity. He used to previously bike a lot specially many was in [place]. He denied any active chest pain but stated that he has felt some fatigue mainly due to inactivity. He seemed to be tolerating his Eliquis without any significant bleeding issues. EKG 08/04/2021 in the clinic shows sinus rhythm with PAC EKG 10/02/2020: SR ECHO 10/02/2020 1. Normal ventricular systolic function 2. Mild diastolic dysfunction 3. Normal right-sided pressures 4. No significant valvular dysfunction ---- -------- PMH: Past Medical History: Diagnosis Date Arrhythmia Atrial flutter (CMS/HCC) Diabetes (CMS/HCC) Hypertension PSH: Past Surgical History: Procedure Laterality Date HERNIA REPAIR VASCULAR SURGERY SH: Social Determinants of Health Tobacco Use: Low Risk (07/27/2022) Patient History Smoking Tobacco Use: Never Smokeless Tobacco Use: Never Passive Exposure: Not on file Alcohol Use: Not on file Financial Resource Strain: Low Risk (10/13/2022) Overall Financial Resource Strain (CARDIA) Difficulty of Paying Living Expenses: Not hard at all Food Insecurity: Unknown (10/13/2022) Hunger Vital Sign Worried About Running Out of Food in the Last Year: Never true Ran Out of Food in the Last Year: Not on file Transportation Needs: Unknown (10/13/2022) PRAPARE - Transportation Lack of Transportation (Medical): No Lack of Transportation (Non-Medical): Not on file Physical Activity: Not on file Stress: Not on file Social Connections: Not on file Intimate Partner Violence: Unknown (10/13/2022) Humiliation, Afraid, Rape, and Kick questionnaire Fear of Current or Ex-Partner: No Emotionally Abused: Not on file Physically Abused: Not on file Sexually Abused: Not on file Depression: Not on file Housing Stability: Unknown (10/13/2022) Housing Stability Vital Sign Unable to Pay for Housing in the Last Year: Not on file Number of Places Lived in the Last Year: Not on file Unstable Housing in the Last Year: No Allergies: Allergies Allergen Reactions Multivitamin Unknown Niacin Cause sweating Weight: 102kg Vitals: 10/26/22 1346 BP: 96/56 Pulse: 64 SpO2: 98% Meds: Current Outpatient Medications on File Prior to Visit Medication Sig Dispense Refill apixaban (Eliquis) 5 mg tablet Take 1 tablet by mouth in the morning and at bedtime. aspirin 81 mg EC tablet Take 1 tablet (81 mg) by mouth in the morning. For 30 days Do not start before October 20, 2022. 30 tablet 0 atorvastatin (Lipitor) 20 mg tablet Take 1 tablet (20 mg) by mouth at bedtime for 90 doses. 90 tablet 0 clopidogrel (Plavix) 75 mg tablet Take 1 tablet (75 mg) by mouth in the morning. Do not start before October 20, 2022. 90 tablet 3 dapagliflozin propanediol (Farxiga) 10 mg Take 1 tablet (10 mg) by mouth in the morning for 30 doses. Do not start before October 20, 2022. 30 tablet 0 insulin glargine (Lantus) 100 unit/mL (3 mL) pen INJECT 28 UNITS TWICE DAILY, MAY BE ADJUSTED UP TO 30 UNITS insulin lispro (HumaLOG) 100 unit/mL injection PLEASE SEE ATTACHED FOR DETAILED DIRECTIONS isosorbide mononitrate ER (Imdur) 30 mg 24 hr tablet Take 1 tablet (30 mg) by mouth in the morning. Do not crush or chew. 90 tablet 3 losartan (Cozaar) 50 mg tablet Take 50 mg by mouth in the morning and at bedtime. metoprolol succinate XL (Toprol-XL) 100 mg 24 hr tablet Take 1 tablet (100 mg) by mouth in the morning. Do not crush or chew. 90 tablet 3 spironolactone (Aldactone) 25 mg tablet Take 1 tablet (25 mg) by mouth in the morning for 30 doses. Do not start before October 20, 2022. 30 tablet 0 No current facility-administered medications on file prior to visit. Physical Exam: Constitu (more content not included)... [facility] 10-21-2022 Note [id number] [facility] 10-19-2022 Note sent updates and AVS to [facility]. No further OTM needs at this time. [facility] 10-19-2022 Note Hospital Medicine Discharge Summary Final Discharge Diagnosis: NSTEMI (non-ST elevated myocardial infarction) (CMS/HCC) Admission Diagnosis: NSTEMI (non-ST elevated myocardial infarction) (CMS/HCC) [I21.4] Hospital course: 87 y.o. male who came from [facility] with chest pain. The patient was transferred to [facility] for higher level of care. The patient presented to [facility] for an elective cardiac catheterization in mid July. Was found to have multivessel coronary disease and CABG was recommended. However, the patient did not feel that surgical intervention with CABG would be appropriate for him. He reports that he has been experiencing regular episodes of substernal chest pain that is nonradiating, pressure-like, worse after eating food or with activity, has associated nausea and vomiting. Today the episode was worse in the morning prompting him to go to the ER. Was having 7-8 out of 10 pain. Is currently pain-free. Was started on nitroglycerin infusion and heparin infusion in the ED for an NSTEMI. Work-up there was notable for ST depression in multiple leads along with an elevated high-sensitivity troponin and proBNP level. # NSTEMI, s/p PCI to LAD and LCX: # MVD: - Continue aspirin, Plavix, Toprol and Lipitor. # Paroxysmal A.fib, currently in NSR: - Continue Toprol and Eliquis. 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 Discharged on Farxiga and spironolactone. # CKD 3, stable. Dear Dr. Dipesh MD, Zaira is advised to follow up with you within 1-2 weeks. Follow-up with: Cardiology Scheduled appointments: Future Appointments Date Time Provider Department Center 10/26/2022 2:00 PM Tara Cardenas NP [facility] Your medication list START taking these medications Instructions Last Dose Given Next Dose Due aspirin 81 mg EC tablet Start taking on: October 20, 2022 Take 1 tablet (81 mg) by mouth in the morning. For 30 days Do not start before October 20, 2022. clopidogrel 75 mg tablet Commonly known as: Plavix Start taking on: October 20, 2022 Take 1 tablet (75 mg) by mouth in the morning. Do not start before October 20, 2022. dapagliflozin propanediol 10 mg Commonly known as: Farxiga Start taking on: October 20, 2022 Take 1 tablet (10 mg) by mouth in the morning for 30 doses. Do not start before October 20, 2022. spironolactone 25 mg tablet Commonly known as: Aldactone Start taking on: October 20, 2022 Take 1 tablet (25 mg) by mouth in the morning for 30 doses. Do not start before October 20, 2022. CHANGE how you take these medications Instructions Last Dose Given Next Dose Due atorvastatin 20 mg tablet Commonly known as: Lipitor What changed: medication strength See the new instructions. Take 1 tablet (20 mg) by mouth at bedtime for 90 doses. CONTINUE taking these medications Instructions Last Dose Given Next Dose Due apixaban 5 mg tablet Commonly known as: Eliquis insulin glargine 100 unit/mL (3 mL) pen Commonly known as: Lantus insulin lispro 100 unit/mL injection Commonly known as: HumaLOG isosorbide mononitrate ER 30 mg 24 hr tablet Commonly known as: Imdur Take 1 tablet (30 mg) by mouth in the morning. Do not crush or chew. losartan 50 mg tablet Commonly known as: Cozaar metoprolol succinate XL 100 mg 24 hr tablet Commonly known as: Toprol-XL Take 1 tablet (100 mg) by mouth in the morning. Do not crush or chew. STOP taking these medications ezetimibe 10 mg tablet Commonly known as: Zetia famotidine 20 mg tablet Commonly known as: Pepcid potassium chloride CR 10 mEq ER tablet Commonly known as: Klor-Con Where to Get Your Medications These medications were sent to [facility] - [place], [place] - [facility] [address], [facility] [address] aspirin 81 mg EC tablet atorvastatin 20 mg tablet clopidogrel 75 mg tablet dapagliflozin propanediol 10 mg spironolactone 25 mg tablet Zaira is allergic to multivitamin and niacin. [place] [facility] [place]: Stable Code Status: Full Code Diagnostic Results Hematology: Results from last 7 days Lab Units 10/19/2242710/18/2233 10/15/22 0504 10/14/22 0032 WBC AUTO 10*3/uL 7.45 7.36 < > 7.18 HEMOGLOBIN g/dL 12.1* 12.0* < > 13.3 HEMATOCRIT % 36.0* 36.4* < > 38.6* MCV fL 89.8 89.9 < > 88.5 PLATELETS AUTO 10*3/uL 121* 115* < > 128* INR -- -- -- 1.28* < > = values in this interval not displayed. Chemistry: Results from last 7 days Lab Units 10/19/2242710/18/22 0533 10/17/22 0812 SODIUM mmol/L 137 139 137 POTASSIUM mmol/L 4.1 3.8 4.0 CHLORIDE mmol/L 106 107 102 CO2 mmol/L 26 24 31 BUN mg/dL 25 30* 28* CREATININE mg/dL 1.38* 1.47* 1.53* GLUCOSE mg/dL 155* 156* 160* MAGNESIUM mg/dL 1.7* 1.5* -- CALCIUM mg/dL 8.9 8.9 9.4 Results from last 7 day (more content not included)... [facility] 10-19-2022 Note 10/19/22 0955 Home Oxygen Therapy Evaluation Pulse Oximetry on room air at Rest 96 Pulse Ox on room air while walking 94 Patient Qualification for home oxygen Does not qualify for home oxygen this visit Patient on 10 min walk on room air. [facility] 10-19-2022 Note Subjective F/U NSTEM I, CAD- triple vessel disease Assessed at bedside, no acute events overnight Denied Chest pain, shortness of breath, orthopnea, or palpitations Patient tolerated cath procedure well. Tele: SR with 1st degree AV block and PVCs 46-94 bpm Objective Patient Vitals for the past 24 hrs: BP Temp Temp src Pulse Resp SpO2 Weight 10/19/22 0600 -- -- -- -- -- -- 101 kg (223 lb 5.2 oz) 10/19/22 0400 143/69 36.6 ???C (97.8 ???F) Oral 73 15 (!) 88 % -- 10/19/22 0000 111/60 -- -- 70 20 98 % -- 10/18/22 2000 141/74 36.8 ???C (98.3 ???F) Temporal 66 17 100 % -- 10/18/22 1900 150/81 -- -- 76 14 100 % -- 10/18/22 1800 162/76 -- -- 77 18 100 % -- 10/18/22 1649 160/80 36.3 ???C (97.4 ???F) Oral 81 25 100 % -- 10/18/22 1558 153/75 -- -- 83 18 96 % -- 10/18/22 1500 155/87 -- -- 82 16 99 % -- 10/18/22 1255 147/76 -- -- 66 18 100 % -- Physical Exam HENT: Head: Normocephalic and atraumatic. Cardiovascular: Rate and Rhythm: Normal rate and regular rhythm. Pulses: Normal pulses. Heart sounds: Normal heart sounds. Pulmonary: Effort: Pulmonary effort is normal. Breath sounds: Normal breath sounds. Abdominal: General: Abdomen is flat. Palpations: Abdomen is soft. Musculoskeletal: Right lower leg: No edema. Left lower leg: No edema. Skin: General: Skin is warm and dry. Capillary Refill: Capillary refill takes less than 2 seconds. Neurological: General: No focal deficit present. Mental Status: He is alert and oriented to person, place, and time. Psychiatric: Mood and Affect: Mood normal. Behavior: Behavior normal. Lab Results Component Value Date NA 137 10/19/2022 K 4.1 10/19/2022 CL 106 10/19/2022 ANIONGAP 9 10/19/2022 BUN 25 10/19/2022 CREATININE 1.38 (H) 10/19/2022 CALCIUM 8.9 10/19/2022 MG 1.7 (L) 10/19/2022 Lab Results Component Value Date BILITOT 1.0 10/14/2022 ALKPHOS 42 10/14/2022 AST 21 10/14/2022 ALT 13 10/14/2022 PROT 6.3 10/14/2022 ALBUMIN 3.9 10/14/2022 Lab Results Component Value Date WBC 7.45 10/19/2022 RBC 4.01 (L) 10/19/2022 HGB 12.1 (L) 10/19/2022 HCT 36.0 (L) 10/19/2022 MCV 89.8 10/19/2022 MCH 30.2 10/19/2022 MCHC 33.6 10/19/2022 RDW 13.0 10/19/2022 NEUTOPHILPCT 58.7 10/14/2022 LYMPHOPCT 27.0 10/14/2022 MONOPCT 10.0 10/14/2022 EOSPCT 3.8 10/14/2022 BASOPCT 0.4 10/14/2022 NEUTROABS 4.21 10/14/2022 LYMPHSABS 1.94 10/14/2022 MONOSABS 0.72 10/14/2022 EOSABS 0.27 10/14/2022 BASOSABS 0.03 10/14/2022 PLT 121 (L) 10/19/2022 NRBC 0.0 10/14/2022 10/14/22 Component Ref Range & Units 3 d ago Triglycerides 40 - 149 mg/dL 67 Comment: TRIGLYCERIDE REFERENCE RANGE: 20 YEARS AND OLDER CARDIOVASCULAR RISK LESS THAN 150 mg/dL LOW RISK 150 TO 199 mg/dL BORDERLINE RISK 200 mg/dL AND GREATER HIGH RISK Cholesterol 120 - 200 mg/dL 53 Low LDL Calculated 0 - 160 mg/dL 17 HDL 23 - 92 mg/dL 23 Non HDL Cholesterol 30 Total VLDL-C 0 - 40 mg/dL 13 Cholesterol/HDL Ratio mg/dL 2.3 No results found for this or any previous visit from the past 1 day. 10/14/22 TTE Left Ventricle: Global left ventricular systolic function is moderately reduced. The EF is 40 % visually. Regional wall motion abnormalities (see diagram). Overall Conclusions: Due to suboptimal imaging Lumason contrast was administered for opacification and better delineation of endocardial borders. 07/21/22 TTE Left Ventricle: The left ventricle is normal size. Global left ventricular systolic function is moderately reduced. The calculated Biplane EF is 40%. Left ventricular wall thickness is normal. Regional wall motion abnormalities (see diagram). Grade 1, mild diastolic dysfunction (abnormal relaxation). Right Ventricle: The right ventricle is poorly seen. Right ventricular systolic function appears preserved. Unable to assess right sided pressures due to lack of measurable tricuspid regurgitation. Left Atrium: The left atrium is normal in size. 07/21/22 Cath- Final Impression: 1) severe triple vessel CAD with significant coronary calcification Assessment/Plan 87 y.o. male presenting with chest pain. The pt presented to [facility] yesterday with sudden onset chest pain and transferred to [facility]. Chest pain started spontaneously without inciting event and was severe 7-09/16 and relieved with nitroglycerin drip in the ED. Troponin was elevated at 1.[address] depression and T wave inversions in lateral leads and atrial flutter w/ variable AV block. 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 EF was estimated at 37%. The pt declined CABG surgery and was managed medically with plan to readdress revascularization with pt in the clinic. Cath was done by Dr Munroe, with potential consideration for PCI of mid and proximal LAD with atherectomy and IVUS via femoral access. TTE in 07/30 showed EF 40% with G1DD and regional wall motion abnormalities. Pr (more content not included)... [facility] 10-18-2022 Note Hospital Medicine Daily Progress Note - 10/18/2022 11:47 AM; Room: 3109/3109-01 Admission: 10/13/2022 10:28 PM; Length of stay: 5 days THE HOSPITALIST TEAM PREFERS TO USE [employer] FOR COMMUNICATION 7AM-7PM. IF I DO NOT RESPOND WITHIN 15 MINUTES, PLEASE PAGE ME/CALL THROUGH THE [employer]. FROM 7PM-7AM, PLEASE PAGE [phone](COVR) Code Status: Full Code Discharge Destination: home Discharge planning: Cath today Overview Patient is seen for evaluation and management of NSTEMI. Subjective Patient reports no chest pain or nausea today. Denies SOB. Physical Exam Visit Vitals BP 125/58 Pulse 63 Temp 36.3 ???C (97.4 ???F) (Temporal) Resp 12 Intake/Output Summary (Last 24 hours) at 10/18/2022 1147 Last data filed at 10/18/2022 0859 Gross per 24 hour Intake 2046.83 ml Output 800 ml Net 1246.83 ml Physical Exam Constitutional: Appearance: Normal appearance. Cardiovascular: Rate and Rhythm: Normal rate and regular rhythm. Pulmonary: Effort: Pulmonary effort is normal. Breath sounds: Normal breath sounds. Abdominal: General: Abdomen is flat. Palpations: Abdomen is soft. Neurological: General: No focal deficit present. Mental Status: He is alert and oriented to person, place, and time. Estimated body mass index is 29.58 kg/m??? as calculated from the following: Height as of this encounter: 1.854 m (6' 1 ). Weight as of this encounter: 102 kg (224 lb 3.3 oz). Active Inpatient Problems Principal Problem: NSTEMI (non-ST elevated myocardial infarction) ([facility]) Assessment and Plan # NSTEMI: # MVD: - Continue heparin drip. - Cath with PCI today. - Continue aspirin, Plavix, Toprol and Lipitor. # Paroxysmal A.fib, currently in NSR: - Continue Toprol. Hold Eliquis for heart cath (currently on heparin drip). # IDDM2: - Continue his Lantus at reduced dose 20 U BID. - A1C: 7.4. 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 Restart Farxiga, spironolactone and losartan after heart cath. # CKD 3, stable. Nutrition Screen VTE Prophylaxis: IV heparin Scheduled Meds amLODIPine, 5 mg, oral, Daily aspirin, 81 mg, oral, Daily atorvastatin, 20 mg, oral, Nightly clopidogrel, 75 mg, oral, Daily [Held by provider] dapagliflozin propanediol, 10 mg, oral, Daily insulin aspart, 0-20 Units, subcutaneous, With meals & nightly insulin glargine, 20 Units, subcutaneous, BID isosorbide mononitrate ER, 60 mg, oral, Daily [Held by provider] losartan, 50 mg, oral, BID metoprolol succinate XL, 100 mg, oral, Daily [Held by provider] spironolactone, 25 mg, oral, Daily heparin, 0-28 Units/kg/hr, Last Rate: 11 Units/kg/hr (10/18/22444) Oxygen Therapy, sodium chloride, 50 mL/hr, Last Rate: 50 mL/hr (10/18/22444) Pertinent Investigations Hematology: Results from last 7 days Lab Units 10/18/22 0533 10/17/22 0534 10/15/22 0504 10/14/22 0032 WBC AUTO 10*3/uL 7.36 8.26 < > 7.18 HEMOGLOBIN g/dL 12.0* 12.9* < > 13.3 HEMATOCRIT % 36.4* 38.5* < > 38.6* MCV fL 89.9 89.7 < > 88.5 PLATELETS AUTO 10*3/uL 115* 111* < > 128* INR -- -- -- 1.28* < > = values in this interval not displayed. Chemistry: Results from last 7 days Lab Units 10/18/22 0533 10/17/22 0812 10/16/22 0649 SODIUM mmol/L 139 137 137 POTASSIUM mmol/L 3.8 4.0 3.9 CHLORIDE mmol/L 107 102 101 CO2 mmol/L 24 31 30 BUN mg/dL 30* 28* 27* CREATININE mg/dL 1.47* 1.53* 1.42* GLUCOSE mg/dL 156* 160* 118* MAGNESIUM mg/dL 1.5* -- 1.7* CALCIUM mg/dL 8.9 9.4 9.3 Results from last 7 days Lab Units 10/14/22 0032 AST U/L 21 ALT U/L 13 ALK PHOS U/L 42 BILIRUBIN TOTAL mg/dL 1.0 Results from last 7 days Lab Units 10/18/22 1105 10/18/22 0712 10/17/22 2045 10/17/22 1625 10/17/22 1120 10/17/22 0756 POCT GLUCOSE mg/dL 169* 151* 219* 178* 187* 157* Historical Values: (Includes values prior to this admission) Lab Results Component Value Date HDL 23 10/14/2022 LDL 30 10/14/2022 No results found for: [id number], IRON, TIBC, C3, C4, ASTRID, CANCA, ASO, PSA, CEA, CA125, CA199, AFP, CA153 Imaging ECG 12 lead Atrial flutter with variable A-V block Minimal voltage criteria for LVH, may be normal variant ( R in aVL ) Marked ST abnormality, possible lateral subendocardial injury Abnormal ECG When compared with ECG of 21-JUL-2022 09:50, Atrial flutter has replaced Sinus rhythm T wave inversion more evident in Lateral Confirmed by Cleio Singletary ([id number]) on 10/14/2022 8:45:31 PM Limited Echo (TTE) w/wo Limited Doppler, Color Flow, Imaging Agent, Strain, 3D, Bubble Study 1 1 [facility] Heart Station [address] [place] [address] [phone] (fax) Echocardiogram-[facility] Name: ZAIRA SEGURA III Study Date: 10/14/2022 12:55 PM B/P: 133 mmHg/81 mmHg HR: 77 bpm Date of : 1935 Location: [facility] Height: 73 in. Age: 87 year(s) Patient Room: 3109 Weight: 227 lb. Gender: Male Patient (more content not included)... [facility] 10-18-2022 Note Subjective F/U NSTEM I, CAD- triple vessel disease Assessed at bedside, no acute events overnight Denied Chest pain, shortness of breath, orthopnea, or palpitations Remains on heparin infusion. He is aware he is going for cath today, has been NPO since midnight Tele: SR with 1st degree AV block and PVCs 46-94 bpm Objective Patient Vitals for the past 24 hrs: BP Temp Temp src Pulse Resp SpO2 Weight 10/18/22 0800 125/58 36.3 ???C (97.4 ???F) Temporal 63 12 97 % -- 10/18/22 0759 -- -- -- -- -- 98 % -- 10/18/22 0600 -- -- -- -- -- -- 102 kg (224 lb 3.3 oz) 10/18/22 0522 -- -- -- 62 14 98 % -- 10/18/22 0400 103/56 -- -- 61 (!) 9 95 % -- 10/18/22 0000 90/72 -- -- 75 21 99 % -- 10/17/22 2336 115/69 -- -- 74 10 98 % -- 10/17/22 2200 -- 36.8 ???C (98.3 ???F) -- -- -- -- -- 10/17/22 1745 126/70 36.6 ???C (97.8 ???F) Temporal 78 16 96 % -- 10/17/22 1142 131/75 36.7 ???C (98 ???F) Temporal 95 24 96 % -- 10/17/22 1137 (!) 133/49 -- -- 81 -- -- -- Physical Exam HENT: Head: Normocephalic and atraumatic. Cardiovascular: Rate and Rhythm: Normal rate and regular rhythm. Pulses: Normal pulses. Heart sounds: Normal heart sounds. Pulmonary: Effort: Pulmonary effort is normal. Breath sounds: Normal breath sounds. Abdominal: General: Abdomen is flat. Palpations: Abdomen is soft. Musculoskeletal: Right lower leg: No edema. Left lower leg: No edema. Skin: General: Skin is warm and dry. Capillary Refill: Capillary refill takes less than 2 seconds. Neurological: General: No focal deficit present. Mental Status: He is alert and oriented to person, place, and time. Psychiatric: Mood and Affect: Mood normal. Behavior: Behavior normal. Lab Results Component Value Date NA 139 10/18/2022 K 3.8 10/18/2022 CL 107 10/18/2022 ANIONGAP 12 10/18/2022 BUN 30 (H) 10/18/2022 CREATININE 1.47 (H) 10/18/2022 CALCIUM 8.9 10/18/2022 MG 1.5 (L) 10/18/2022 Lab Results Component Value Date BILITOT 1.0 10/14/2022 ALKPHOS 42 10/14/2022 AST 21 10/14/2022 ALT 13 10/14/2022 PROT 6.3 10/14/2022 ALBUMIN 3.9 10/14/2022 Lab Results Component Value Date WBC 7.36 10/18/2022 RBC 4.05 (L) 10/18/2022 HGB 12.0 (L) 10/18/2022 HCT 36.4 (L) 10/18/2022 MCV 89.9 10/18/2022 MCH 29.6 10/18/2022 MCHC 33.0 10/18/2022 RDW 12.9 10/18/2022 NEUTOPHILPCT 58.7 10/14/2022 LYMPHOPCT 27.0 10/14/2022 MONOPCT 10.0 10/14/2022 EOSPCT 3.8 10/14/2022 BASOPCT 0.4 10/14/2022 NEUTROABS 4.21 10/14/2022 LYMPHSABS 1.94 10/14/2022 MONOSABS 0.72 10/14/2022 EOSABS 0.27 10/14/2022 BASOSABS 0.03 10/14/2022 PLT 115 (L) 10/18/2022 NRBC 0.0 10/14/2022 10/14/22 Component Ref Range & Units 3 d ago Triglycerides 40 - 149 mg/dL 67 Comment: TRIGLYCERIDE REFERENCE RANGE: 20 YEARS AND OLDER CARDIOVASCULAR RISK LESS THAN 150 mg/dL LOW RISK 150 TO 199 mg/dL BORDERLINE RISK 200 mg/dL AND GREATER HIGH RISK Cholesterol 120 - 200 mg/dL 53 Low LDL Calculated 0 - 160 mg/dL 17 HDL 23 - 92 mg/dL 23 Non HDL Cholesterol 30 Total VLDL-C 0 - 40 mg/dL 13 Cholesterol/HDL Ratio mg/dL 2.3 No results found for this or any previous visit from the past 1 day. 10/14/22 TTE Left Ventricle: Global left ventricular systolic function is moderately reduced. The EF is 40 % visually. Regional wall motion abnormalities (see diagram). Overall Conclusions: Due to suboptimal imaging Lumason contrast was administered for opacification and better delineation of endocardial borders. 07/21/22 TTE Left Ventricle: The left ventricle is normal size. Global left ventricular systolic function is moderately reduced. The calculated Biplane EF is 40%. Left ventricular wall thickness is normal. Regional wall motion abnormalities (see diagram). Grade 1, mild diastolic dysfunction (abnormal relaxation). Right Ventricle: The right ventricle is poorly seen. Right ventricular systolic function appears preserved. Unable to assess right sided pressures due to lack of measurable tricuspid regurgitation. Left Atrium: The left atrium is normal in size. 07/21/22 Cath- Final Impression: 1) severe triple vessel CAD with significant coronary calcification Assessment/Plan 87 y.o. male presenting with chest pain. The pt presented to [facility] yesterday with sudden onset chest pain and transferred to [facility]. Chest pain started spontaneously without inciting event and was severe 7-8/10 and relieved with nitroglycerin drip in the ED. Troponin was elevated at 1.[address] depression and T wave inversions in lateral leads and atrial flutter w/ variable AV block. 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 EF was estimated at 37%. The pt declined CABG surgery and was managed medically with plan to readdress revascularization with pt in the clinic. Cath was done by Dr Munroe, with potential consideration for PCI of mid and proximal LAD with atherecto (more content not included)... [facility] 10-18-2022 Note Physical Therapy Physical Therapy Treatment Patient Name: Zaira Segura III : 1935 Today's Date: 10/18/2022 10/18/22 Time Calculation Start Time 0834 Stop Time 0905 Time Calculation (min) 31 min PT Therapeutic Procedures Time Entry Therapeutic Activity Time Entry 21 Therapeutic Exercise Time Entry 10 Patient Active Problem List Diagnosis PAD (peripheral artery disease) (CMS/HCC) Skin ulcer, limited to breakdown of skin (CMS/HCC) Diabetes mellitus (CMS/HCC) Primary hypertension Ischemic ulcer with fat layer exposed (CMS/HCC) Atrial flutter (CMS/HCC) PRASAD (dyspnea on exertion) Chest pain on exertion Cardiomyopathy (CMS/HCC) Coronary artery disease of [place] artery of [place] heart with stable angina pectoris (CMS/HCC) Frequent falls Vascular insufficiency Paroxysmal A-fib (CMS/HCC) 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 General Family/Caregiver Present No Subjective Pt resting sup in bed awake and alert. Pt pleasant and agreeable with PT tx. RN Gina approves and reports he will be going for heart cath later this afternoon. Activity Tolerance Endurance Stage III Activity Tolerance Comments Pt tolerated increased time in standing, further gait distance and step ups in stairwell without incident. Vitals WNL on RA. Denies chest pain and SOB. Precautions Medical Precautions fall risk, alarms, IV Pain Assessment Pain Assessment No/denies pain Cognition Overall Cognitive Status WFL Arousal/Alertness Appropriate responses to stimuli Orientation Level Oriented X4 Following Commands Follows multistep commands with repetition Safety Judgment Decreased awareness of need for safety;Decreased awareness of need for assistance;Impulsive Awareness of Errors Assistance required to identify errors made Deficits Decreased awareness of deficits Attention Span Appears intact Memory Appears intact Problem Solving Assistance required to identify errors made Communication Intact Cognition Comments Increased cues to improve safety secondary to impulsive behaviors and decreased awareness of lines involved throughout mobility. Therapeutic Exercise Therapeutic Exercise Activity 1 x6 step ups in stairwell with R rail for support. Cues for upright posture and safety with improved carryover. Therapeutic Exercise Activity 2 Increased gait distance with RW to challenge endurance and strengthen BLEs. Static Sitting Balance Static Sitting-Balance Support Feet supported Static Sitting-Level of Assistance Independent Static Sitting-Comment/Number of Minutes EOB/Recliner Dynamic Sitting Balance Dynamic Sitting-Balance Support Feet supported Dynamic Sitting-Balance Forward lean;Reaching for objects Dynamic Sitting Balance-Level of Assistance Independent Dynamic Sitting-Comments Reaches for objects without LOB, toileting Static Standing Balance Static Standing-Balance Support Right upper extremity supported;Left upper extremity supported;With device (RW) Static Standing-Level of Assistance Close supervision Static Standing-Comment/Number of Minutes fwd flexed posture, cues to improve with minimal follow through Dynamic Standing Balance Dynamic Standing-Balance Support Unilateral upper extremity supported;With device (RW) Dynamic Standing-Balance Reaching for weighted objects;Forward lean;Lateral lean Dynamic Standing Balance-Level of Assistance Contact guard Dynamic Standing-Comments Opened 3 doors without LOB Ambulation Ambulation Yes Ambulation 1 Surface 1 Level tile;Uneven (bathroom threshold/tile) Device 1 Rolling walker Assistance 1 Close supervision Quality of Gait 1 decr step length/height, fwd flexed posture, cues for safe RW proximity and awareness of IV lines Comments/Distance (ft) 1 20' to/from bathroom Ambulation 2 Surface 2 Level tile Device 2 Rolling walker Assistance 2 Close supervision Quality of Gait 2 same as above Comments/Distance (ft) 2 Shoes donned for this trial, difficulty clearing toes at times but no LOB. ~60' x2 to/from stairwell. Bed Mobility Bed Mobility Yes Bed Mobility 1 Bed Mobility From 1 Supine Bed Mobility Type 1 To Bed Mobility to 1 Short sit Level of Assistance 1 Distant supervision Bed Mobility Comments 1 Increased time/effort to achieve EOB sitting. Use of rail and HOB slightly elevated. Transfers Transfer Yes Transfer 1 Transfer From 1 Bed;Toilet;Chair with arms Transfer Type 1 To and from Transfer to 1 Stand Technique 1 Sit to stand;Stand to sit Transfer Device 1 rolling walker Transfer Level of Assistance 1 Close supervision Trials/Comments 1 Pt perfo (more content not included)... [facility] 10-18-2022 Note 10/18/22 0801 Referral Data Referral Source Other (Comment) Activities of Daily Living Assistive Device Walker;Wheelchair Discharge Planning Type of Residence/Post Acute Needs Private residence Patient's goal for discharge Patient's goal for discharge is to return home with [facility]. Screened via [facility]. Patient is from home. Has a walker and wheelchair in the home. History of [facility] [facility] [place] and [facility]. [facility] 10-17-2022 Note Hospital Medicine Daily Progress Note - 10/17/2022 10:35 AM; Room: [address] [place] [address] Admission: 10/13/2022 10:28 PM; Length of stay: 4 days THE HOSPITALIST TEAM PREFERS TO USE [employer] CHAT FOR COMMUNICATION 7AM-7PM. IF I DO NOT RESPOND WITHIN 15 MINUTES, PLEASE PAGE ME/CALL THROUGH THE RUBBER STAMPS AND DIES SUPERVISOR. FROM 7PM-7AM, PLEASE PAGE [phone](COVR) Code Status: Full Code Discharge Destination: home Discharge planning: Cath on Tuesday Overview Patient is seen for evaluation and management of NSTEMI. Subjective Patient reports no chest pain or nausea today. Denies SOB. Physical Exam Visit Vitals BP 147/71 (BP Location: Right arm, Patient Position: Lying) Pulse 65 Temp 36.8 ???C (98.2 ???F) (Temporal) Resp 11 Intake/Output Summary (Last 24 hours) at 10/17/2022 1035 Last data filed at 10/17/2022 0457 Gross per 24 hour Intake 1628.45 ml Output 700 ml Net 928.45 ml Physical Exam Constitutional: Appearance: Normal appearance. Cardiovascular: Rate and Rhythm: Normal rate and regular rhythm. Pulmonary: Effort: Pulmonary effort is normal. Breath sounds: Normal breath sounds. Abdominal: General: Abdomen is flat. Palpations: Abdomen is soft. Neurological: General: No focal deficit present. Mental Status: He is alert and oriented to person, place, and time. Estimated body mass index is 29.32 kg/m??? as calculated from the following: Height as of this encounter: 1.854 m (6' 1 ). Weight as of this encounter: 101 kg (222 lb 3.6 oz). Active Inpatient Problems Principal Problem: NSTEMI (non-ST elevated myocardial infarction) ([facility]) Assessment and Plan # NSTEMI: # MVD: - Continue heparin drip. - Cath was canceled on Tuesday due to mild increase in crea (not LIA). Cath is planned on Tuesday. - Continue aspirin, Plavix, Toprol and Lipitor. # Paroxysmal A.fib, currently in NSR: - Continue Toprol. Hold Eliquis for heart cath (currently on heparin drip). # IDDM2: - Continue his Lantus at reduced dose 20 U BID. - A1C: 7.4. 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 Restart Farxiga, spironolactone and losartan after heart cath. # CKD 3, stable. Nutrition Screen VTE Prophylaxis: IV heparin Scheduled Meds amLODIPine, 5 mg, oral, Daily aspirin, 81 mg, oral, Daily atorvastatin, 20 mg, oral, Nightly clopidogrel, 75 mg, oral, Daily [Held by provider] dapagliflozin propanediol, 10 mg, oral, Daily insulin aspart, 0-20 Units, subcutaneous, With meals & nightly insulin glargine, 20 Units, subcutaneous, BID [START ON 10/18/2022] isosorbide mononitrate ER, 60 mg, oral, Daily [Held by provider] losartan, 50 mg, oral, BID metoprolol succinate XL, 100 mg, oral, Daily [Held by provider] spironolactone, 25 mg, oral, Daily heparin, 0-28 Units/kg/hr, Last Rate: 11 Units/kg/hr (10/16/225) Oxygen Therapy, sodium chloride, 50 mL/hr, Last Rate: 50 mL/hr (10/17/22 0457) Pertinent Investigations Hematology: Results from last 7 days Lab Units 10/17/22 0534 10/16/22 0650 10/15/22 0504 10/14/22 0032 WBC AUTO 10*3/uL 8.26 7.53 < > 7.18 HEMOGLOBIN g/dL 12.9* 13.6 < > 13.3 HEMATOCRIT % 38.5* 41.1 < > 38.6* MCV fL 89.7 88.6 < > 88.5 PLATELETS AUTO 10*3/uL 111* 120* < > 128* INR -- -- -- 1.28* < > = values in this interval not displayed. Chemistry: Results from last 7 days Lab Units 10/17/22 0812 10/16/22 0649 10/15/22 0504 SODIUM mmol/L 137 137 140 POTASSIUM mmol/L 4.0 3.9 3.8 CHLORIDE mmol/L 102 101 106 CO2 mmol/L 31 30 26 BUN mg/dL 28* 27* 23 CREATININE mg/dL 1.53* 1.42* 1.40* GLUCOSE mg/dL 160* 118* 72 MAGNESIUM mg/dL -- 1.7* 1.5* CALCIUM mg/dL 9.4 9.3 9.4 Results from last 7 days Lab Units 10/14/22 0032 AST U/L 21 ALT U/L 13 ALK PHOS U/L 42 BILIRUBIN TOTAL mg/dL 1.0 Results from last 7 days Lab Units 10/17/22 0756 10/16/22 2042 10/16/22 1638 10/16/22 1156 10/16/22 0755 10/15/22 2108 POCT GLUCOSE mg/dL 157* 224* 236* 209* 115* 157* Historical Values: (Includes values prior to this admission) Lab Results Component Value Date HDL 10/14/2022 LDL 30 10/14/2022 No results found for: [id number], IRON, TIBC, C3, C4, ASTRID, CANCA, ASO, PSA, CEA, CA125, CA199, AFP, CA153 Imaging ECG 12 lead Atrial flutter with variable A-V block Minimal voltage criteria for LVH, may be normal variant ( R in aVL ) Marked ST abnormality, possible lateral subendocardial injury Abnormal ECG When compared with ECG of 21-JUL-2022 09:50, Atrial flutter has replaced Sinus rhythm T wave inversion more evident in Lateral Confirmed by Celio Singletary ([id number]) on 10/14/2022 8:45:31 PM Limited Echo (TTE) w/wo Limited Doppler, Color Flow, Imaging Agent, Strain, 3D, Bubble Study 1 1 [facility] Heart Station [address] [place] [address] [phone] (fax) Echocardiogram-[facility] Name: ZAIRA SEGURA III Study Date: 10/14/2022 12:55 PM B/P: 133 mmHg/81 mmHg (more content not included)... [facility] 10-17-2022 Note SW sent updates to [facility] [place]. Awaiting acceptance. OTM will continue to follow. [facility] 10-17-2022 Note Subjective F/U NSTEM I, CAD- triple vessel disease Assessed at bedside, no acute events overnight Denied Chest pain, shortness of breath, orthopnea, or palpitations Remains on heparin infusion. Tele: SR with 1st degree AV block and PVCs 46-94 bpm Objective Patient Vitals for the past 24 hrs: BP Temp Temp src Pulse Resp SpO2 Weight 10/17/22 0722 -- -- -- -- -- 97 % -- 10/17/22 0500 -- -- -- -- -- -- 101 kg (222 lb 3.6 oz) 10/17/22 0400 141/71 36.4 ???C (97.5 ???F) Temporal 76 19 99 % -- 10/17/22 0000 126/64 36.5 ???C (97.7 ???F) Temporal 74 13 97 % -- 10/16/22 1957 113/56 -- -- -- -- -- -- 10/16/22 1600 118/72 36.4 ???C (97.5 ???F) Temporal 75 16 98 % -- 10/16/22 1310 93/51 36.3 ???C (97.3 ???F) Temporal 59 14 97 % -- Physical Exam HENT: Head: Normocephalic and atraumatic. Cardiovascular: Rate and Rhythm: Normal rate and regular rhythm. Pulses: Normal pulses. Heart sounds: Normal heart sounds. Pulmonary: Effort: Pulmonary effort is normal. Breath sounds: Normal breath sounds. Abdominal: General: Abdomen is flat. Palpations: Abdomen is soft. Musculoskeletal: Right lower leg: No edema. Left lower leg: No edema. Skin: General: Skin is warm and dry. Capillary Refill: Capillary refill takes less than 2 seconds. Neurological: General: No focal deficit present. Mental Status: He is alert and oriented to person, place, and time. Psychiatric: Mood and Affect: Mood normal. Behavior: Behavior normal. Lab Results Component Value Date NA 137 10/16/2022 K 3.9 10/16/2022 CL 101 10/16/2022 ANIONGAP 10 10/16/2022 BUN 27 (H) 10/16/2022 CREATININE 1.42 (H) 10/16/2022 CALCIUM 9.3 10/16/2022 MG 1.7 (L) 10/16/2022 Lab Results Component Value Date BILITOT 1.0 10/14/2022 ALKPHOS 42 10/14/2022 AST 21 10/14/2022 ALT 13 10/14/2022 PROT 6.3 10/14/2022 ALBUMIN 3.9 10/14/2022 Lab Results Component Value Date WBC 8.26 10/17/2022 RBC 4.29 10/17/2022 HGB 12.9 (L) 10/17/2022 HCT 38.5 (L) 10/17/2022 MCV 89.7 10/17/2022 MCH 30.1 10/17/2022 MCHC 33.5 10/17/2022 RDW 12.9 10/17/2022 NEUTOPHILPCT 58.7 10/14/2022 LYMPHOPCT 27.0 10/14/2022 MONOPCT 10.0 10/14/2022 EOSPCT 3.8 10/14/2022 BASOPCT 0.4 10/14/2022 NEUTROABS 4.21 10/14/2022 LYMPHSABS 1.94 10/14/2022 MONOSABS 0.72 10/14/2022 EOSABS 0.27 10/14/2022 BASOSABS 0.03 10/14/2022 PLT 111 (L) 10/17/2022 NRBC 0.0 10/14/2022 10/14/22 Component Ref Range & Units 3 d ago Triglycerides 40 - 149 mg/dL 67 Comment: TRIGLYCERIDE REFERENCE RANGE: 20 YEARS AND OLDER CARDIOVASCULAR RISK LESS THAN 150 mg/dL LOW RISK 150 TO 199 mg/dL BORDERLINE RISK 200 mg/dL AND GREATER HIGH RISK Cholesterol 120 - 200 mg/dL 53 Low LDL Calculated 0 - 160 mg/dL 17 HDL 23 - 92 mg/dL 23 Non HDL Cholesterol 30 Total VLDL-C 0 - 40 mg/dL 13 Cholesterol/HDL Ratio mg/dL 2.3 No results found for this or any previous visit from the past 1 day. 10/14/22 TTE Left Ventricle: Global left ventricular systolic function is moderately reduced. The EF is 40 % visually. Regional wall motion abnormalities (see diagram). Overall Conclusions: Due to suboptimal imaging Lumason contrast was administered for opacification and better delineation of endocardial borders. 07/21/22 TTE Left Ventricle: The left ventricle is normal size. Global left ventricular systolic function is moderately reduced. The calculated Biplane EF is 40%. Left ventricular wall thickness is normal. Regional wall motion abnormalities (see diagram). Grade 1, mild diastolic dysfunction (abnormal relaxation). Right Ventricle: The right ventricle is poorly seen. Right ventricular systolic function appears preserved. Unable to assess right sided pressures due to lack of measurable tricuspid regurgitation. Left Atrium: The left atrium is normal in size. 07/21/22 Cath- Final Impression: 1) severe triple vessel CAD with significant coronary calcification Assessment/Plan 87 y.o. male presenting with chest pain. The pt presented to [facility] yesterday with sudden onset chest pain and transferred to [facility]. Chest pain started spontaneously without inciting event and was severe 7-8/10 and relieved with nitroglycerin drip in the ED. Troponin was elevated at 1.[address] depression and T wave inversions in lateral leads and atrial flutter w/ variable AV block. 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 EF was estimated at 37%. The pt declined CABG surgery and was managed medically with plan to readdress revascularization with pt in the clinic. Cath was done by Dr Munroe, with potential consideration for PCI of mid and proximal LAD with atherectomy and IVUS via femoral access. TTE in 07/30 showed EF 40% with G1DD and regional wall motion abnormalities. Principal Problem: NSTEMI (non-ST elevated myocardial infarction) ([facility]) - CAD s/p cath 07/30- severe triple vessel d (more content not included)... [facility] 10-16-2022 Note Hospital Medicine Daily Progress Note - 10/16/2022 10:58 AM; Room: [address] [place] [address] Admission: 10/13/2022 10:28 PM; Length of stay: 3 days THE HOSPITALIST TEAM PREFERS TO USE [employer] CHAT FOR COMMUNICATION 7AM-7PM. IF I DO NOT RESPOND WITHIN 15 MINUTES, PLEASE PAGE ME/CALL THROUGH THE RUBBER STAMPS AND DIES SUPERVISOR. FROM 7PM-7AM, PLEASE PAGE [phone](COVR) Code Status: Full Code Discharge Destination: home Discharge planning: Cath on Tuesday Overview Patient is seen for evaluation and management of NSTEMI. Subjective Patient reports chest pain and nausea only after eating. Denies SOB. Physical Exam Visit Vitals BP 133/67 (BP Location: Right arm, Patient Position: Sitting) Pulse 74 Temp 36.7 ???C (98 ???F) (Temporal) Resp 16 Intake/Output Summary (Last 24 hours) at 10/16/2022 1058 Last data filed at 10/16/2022 0108 Gross per 24 hour Intake 672.09 ml Output 300 ml Net 372.09 ml Physical Exam Constitutional: Appearance: Normal appearance. Cardiovascular: Rate and Rhythm: Normal rate and regular rhythm. Pulmonary: Effort: Pulmonary effort is normal. Breath sounds: Normal breath sounds. Abdominal: General: Abdomen is flat. Palpations: Abdomen is soft. Musculoskeletal: Right lower leg: Edema present. Left lower leg: Edema present. Neurological: General: No focal deficit present. Mental Status: He is alert and oriented to person, place, and time. Estimated body mass index is 29.58 kg/m??? as calculated from the following: Height as of this encounter: 1.854 m (6' 1 ). Weight as of this encounter: 102 kg (224 lb 3.3 oz). Active Inpatient Problems Principal Problem: NSTEMI (non-ST elevated myocardial infarction) ([facility]) Assessment and Plan # NSTEMI: # MVD: - Continue heparin drip. - Cath was canceled on Tuesday due to mild increase in crea (not LIA). Cath is planned on Tuesday. - Continue aspirin, Plavix, Toprol and Lipitor. # Paroxysmal A.fib, currently in NSR: - Continue Toprol. Hold Eliquis for heart cath (currently on heparin drip). # IDDM2: - Continue his Lantus at reduced dose 20 U BID. - A1C: 7.4. 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 Added Farxiga and spironolactone. # CKD 3, stable. Nutrition Screen VTE Prophylaxis: IV heparin Scheduled Meds aspirin, 81 mg, oral, Daily atorvastatin, 20 mg, oral, Nightly clopidogrel, 75 mg, oral, Daily dapagliflozin propanediol, 10 mg, oral, Daily insulin aspart, 0-20 Units, subcutaneous, With meals & nightly insulin glargine, 20 Units, subcutaneous, BID isosorbide mononitrate ER, 30 mg, oral, Daily losartan, 50 mg, oral, BID metoprolol succinate XL, 100 mg, oral, Daily spironolactone, 25 mg, oral, Daily heparin, 0-28 Units/kg/hr, Last Rate: 11 Units/kg/hr (10/16/22 0108) Oxygen Therapy, sodium chloride, 50 mL/hr, Last Rate: 50 mL/hr (10/16/22 1042) Pertinent Investigations Hematology: Results from last 7 days Lab Units 10/16/22 0650 10/15/22 0504 10/14/22 0032 WBC AUTO 10*3/uL 7.53 6.64 7.18 HEMOGLOBIN g/dL 13.6 13.9 13.3 HEMATOCRIT % 41.1 41.3 38.6* MCV fL 88.6 89.0 88.5 PLATELETS AUTO 10*3/uL 120* 120* 128* INR -- -- 1.28* Chemistry: Results from last 7 days Lab Units 10/16/22 0649 10/15/22 0504 10/14/22 0032 SODIUM mmol/L 137 140 140 POTASSIUM mmol/L 3.9 3.8 3.6 CHLORIDE mmol/L 101 106 105 CO2 mmol/L 30 26 29 BUN mg/dL 27* 23 27* CREATININE mg/dL 1.42* 1.40* 1.27 GLUCOSE mg/dL 118* 72 135* MAGNESIUM mg/dL 1.7* 1.5* -- CALCIUM mg/dL 9.3 9.4 9.1 Results from last 7 days Lab Units 10/14/22 0032 AST U/L 21 ALT U/L 13 ALK PHOS U/L 42 BILIRUBIN TOTAL mg/dL 1.0 Results from last 7 days Lab Units 10/16/22 0755 10/15/22 2108 10/15/22 1636 10/15/22 1619 10/15/22 1116 10/15/22 0729 POCT GLUCOSE mg/dL 115* 157* 80 81 125* 84 Historical Values: (Includes values prior to this admission) Lab Results Component Value Date HDL 23 10/14/2022 LDL 30 10/14/2022 No results found for: [id number], IRON, TIBC, C3, C4, ASTRID, CANCA, ASO, PSA, CEA, CA125, CA199, AFP, CA153 Imaging ECG 12 lead Atrial flutter with variable A-V block Minimal voltage criteria for LVH, may be normal variant ( R in aVL ) Marked ST abnormality, possible lateral subendocardial injury Abnormal ECG When compared with ECG of 21-JUL-2022 09:50, Atrial flutter has replaced Sinus rhythm T wave inversion more evident in Lateral Confirmed by Celio Singletary (80) on 10/14/2022 8:45:31 PM Limited Echo (TTE) w/wo Limited Doppler, Color Flow, Imaging Agent, Strain, 3D, Bubble Study 1 1 [facility] Heart Station [address] [place] [address] [phone] (fax) Echocardiogram-[facility] Name: ZAIRA SEGURA III Study Date: 10/14/2022 12:55 PM B/P: 133 mmHg/81 mmHg HR: 77 bpm Date of : 1935 Location: [facility] Height: 73 in. Age: 87 year(s) Patient Room: 3109 Weight: 227 lb. Gender: M (more content not included)... [facility] 10-16-2022 Note Subjective F/U NSTEM I, CAD- triple vessel disease Assessed at bedside, no acute events overnight Denied Chest pain, shortness of breath, orthopnea, or palpitations Remains on heparin infusion. Tele: SR with PVCs, coverted to A fb at 01:24 and back to SR at 2:03 am Objective Patient Vitals for the past 24 hrs: BP Temp Temp src Pulse Resp SpO2 Weight 10/16/22 0500 -- -- -- -- -- -- 102 kg (224 lb 3.3 oz) 10/16/22 0400 152/70 36.5 ???C (97.7 ???F) Temporal 71 11 100 % -- 10/16/22 0016 153/69 -- -- 67 10 99 % -- 10/15/22 2008 148/60 36.7 ???C (98.1 ???F) Temporal 60 15 98 % -- 10/15/22 1451 156/74 36.7 ???C (98 ???F) Oral 63 13 100 % -- 10/15/22 1245 103/53 36.2 ???C (97.1 ???F) Temporal 55 16 100 % -- 10/15/22 0826 130/60 36.7 ???C (98 ???F) Temporal 56 18 97 % -- Physical Exam HENT: Head: Normocephalic and atraumatic. Cardiovascular: Rate and Rhythm: Normal rate and regular rhythm. Pulses: Normal pulses. Heart sounds: Normal heart sounds. Pulmonary: Effort: Pulmonary effort is normal. Breath sounds: Normal breath sounds. Abdominal: General: Abdomen is flat. Palpations: Abdomen is soft. Musculoskeletal: Comments: +1 pedal edema Neurological: Mental Status: He is alert. Lab Results Component Value Date NA 140 10/15/2022 K 3.8 10/15/2022 CL 106 10/15/2022 ANIONGAP 12 10/15/2022 BUN 23 10/15/2022 CREATININE 1.40 (H) 10/15/2022 CALCIUM 9.4 10/15/2022 MG 1.5 (L) 10/15/2022 Lab Results Component Value Date BILITOT 1.0 10/14/2022 ALKPHOS 42 10/14/2022 AST 21 10/14/2022 ALT 13 10/14/2022 PROT 6.3 10/14/2022 ALBUMIN 3.9 10/14/2022 Lab Results Component Value Date WBC 6.64 10/15/2022 RBC 4.64 10/15/2022 HGB 13.9 10/15/2022 HCT 41.3 10/15/2022 MCV 89.0 10/15/2022 MCH 30.0 10/15/2022 MCHC 33.7 10/15/2022 RDW 12.8 10/15/2022 NEUTOPHILPCT 58.7 10/14/2022 LYMPHOPCT 27.0 10/14/2022 MONOPCT 10.0 10/14/2022 EOSPCT 3.8 10/14/2022 BASOPCT 0.4 10/14/2022 NEUTROABS 4.21 10/14/2022 LYMPHSABS 1.94 10/14/2022 MONOSABS 0.72 10/14/2022 EOSABS 0.27 10/14/2022 BASOSABS 0.03 10/14/2022 PLT 120 (L) 10/15/2022 NRBC 0.0 10/14/2022 No results found for this or any previous visit from the past 1 day. 10/14/22 TTE Left Ventricle: Global left ventricular systolic function is moderately reduced. The EF is 40 % visually. Regional wall motion abnormalities (see diagram). Overall Conclusions: Due to suboptimal imaging Lumason contrast was administered for opacification and better delineation of endocardial borders. 07/21/22 TTE Left Ventricle: The left ventricle is normal size. Global left ventricular systolic function is moderately reduced. The calculated Biplane EF is 40%. Left ventricular wall thickness is normal. Regional wall motion abnormalities (see diagram). Grade 1, mild diastolic dysfunction (abnormal relaxation). Right Ventricle: The right ventricle is poorly seen. Right ventricular systolic function appears preserved. Unable to assess right sided pressures due to lack of measurable tricuspid regurgitation. Left Atrium: The left atrium is normal in size. 07/21/22 Cath- Final Impression: 1) severe triple vessel CAD with significant coronary calcification Assessment/Plan Principal Problem: NSTEMI (non-ST elevated myocardial infarction) (CMS/HCC) - CAD s/p cath 07/30- severe triple vessel disease - Ischemic cardiomyopathy, EF 40% on TTE 10/14, anterior wall akinesis, apical hypokinesis - A fib/flutter, on AC- [id number] - DM, type 2, last A1c 8.7% in 2020 - CKD 3 - HTN with heart failure and renal failure - Mixed HLD - Peripheral arterial disease Plan: - Remains on heparin infusion rather than resuming eliquis prior to upcoming PCI - continue GDMT- CAD- ASA, Plavix, lipitor, Toprol, will add imdur 30 mg - optimize GDMT HF, continue ASA, lipitor, toprol, losartan, and aldactone and farxiga [place] II Diuretic therapy- currently euvolemic and appeared dehydrated yesterday, renal function remains elevated but stable. Monitor daily weights, I&O, fluid restriction 1.5-2L/day, renal function and electrolytes- please maintain K+>4 and Mg > 2 - cath w/ PCI scheduled for Tuesday or Tuesday- will dw Dr You and Dr Deleon- interventionalist Tanya Prince [employer]MENT [employer]PERATOR Division of Cardiology, [facility] Ph- [phone] Pager- [phone] Email- [email or web address] Addendum- start IV fluid for hydration, continue heparin infusion and plan for PCI on Tuesday per Dr Deleon- dependent on improvement of renal function. [facility] 10-15-2022 Note Sw advised by [facility] Ca re Coordinator that patient was recently with [facility]. Preliminary referral made for their review as PT/OT recommend Home therapy. [facility] 10-15-2022 Note Hospital Medicine Daily Progress Note - 10/15/2022 12:57 PM; Room: [address] [place], [place] [id number] Admission: 10/13/2022 10:28 PM; Length of stay: 2 days THE HOSPITALIST TEAM PREFERS TO USE [employer] CHAT FOR COMMUNICATION 7AM-7PM. IF I DO NOT RESPOND WITHIN 15 MINUTES, PLEASE PAGE ME/CALL THROUGH THE RUBBER STAMPS AND DIES SUPERVISOR. FROM 7PM-7AM, PLEASE PAGE [phone](COVR) Code Status: Full Code Discharge Destination: home Discharge planning: Cath today Overview Patient is seen for evaluation and management of NSTEMI. Subjective Patient denies active chest pain, SOB, N/V. Physical Exam Visit Vitals BP 103/53 (BP Location: Right arm, Patient Position: Sitting) Pulse 55 Temp 36.2 ???C (97.1 ???F) (Temporal) Resp 16 Intake/Output Summary (Last 24 hours) at 10/15/2022 1257 Last data filed at 10/15/2022 0914 Gross per 24 hour Intake 1118.5 ml Output 700 ml Net 418.5 ml Physical Exam Constitutional: Appearance: Normal appearance. Cardiovascular: Rate and Rhythm: Normal rate and regular rhythm. Pulmonary: Effort: Pulmonary effort is normal. Breath sounds: Normal breath sounds. Abdominal: General: Abdomen is flat. Palpations: Abdomen is soft. Musculoskeletal: Right lower leg: Edema present. Left lower leg: Edema present. Neurological: General: No focal deficit present. Mental Status: He is alert and oriented to person, place, and time. Estimated body mass index is 29.17 kg/m??? as calculated from the following: Height as of this encounter: 1.854 m (6' 1 ). Weight as of this encounter: 100 kg (221 lb 1.9 oz). Active Inpatient Problems Principal Problem: NSTEMI (non-ST elevated myocardial infarction) ([facility]) Assessment and Plan # NSTEMI: # MVD: - Continue heparin drip. - Cath likely today. - Continue aspirin, Plavix, Toprol and Lipitor. # Paroxysmal A.fib, currently in NSR: - Continue Toprol. Hold Eliquis for heart cath (currently on heparin drip). # IDDM2: - Continue his Lantus at reduced dose 20 U BID. - A1C: 7.4. 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 Added Farxiga and spironolactone. Nutrition Screen VTE Prophylaxis: IV heparin Scheduled Meds aspirin, 81 mg, oral, Daily atorvastatin, 20 mg, oral, Nightly clopidogrel, 75 mg, oral, Daily dapagliflozin propanediol, 10 mg, oral, Daily insulin aspart, 0-20 Units, subcutaneous, With meals & nightly [Held by provider] insulin glargine, 20 Units, subcutaneous, BID losartan, 50 mg, oral, BID spironolactone, 25 mg, oral, Daily heparin, 0-28 Units/kg/hr, Last Rate: 12 Units/kg/hr (10/15/22 0238) Oxygen Therapy, Pertinent Investigations Hematology: Results from last 7 days Lab Units 10/15/22 0504 10/14/22 0032 WBC AUTO 10*3/uL 6.64 7.18 HEMOGLOBIN g/dL 13.9 13.3 HEMATOCRIT % 41.3 38.6* MCV fL 89.0 88.5 PLATELETS AUTO 10*3/uL 120* 128* INR -- 1.28* Chemistry: Results from last 7 days Lab Units 10/15/22 0504 10/14/22 0032 SODIUM mmol/L 140 140 POTASSIUM mmol/L 3.8 3.6 CHLORIDE mmol/L 106 105 CO2 mmol/L 26 29 BUN mg/dL 23 27* CREATININE mg/dL 1.40* 1.27 GLUCOSE mg/dL 72 135* MAGNESIUM mg/dL 1.5* -- CALCIUM mg/dL 9.4 9.1 Results from last 7 days Lab Units 10/14/22 0032 AST U/L 21 ALT U/L 13 ALK PHOS U/L 42 BILIRUBIN TOTAL mg/dL 1.0 Results from last 7 days Lab Units 10/15/22 1116 10/15/22 0729 10/14/22200010/14/22 1622 10/14/22 1124 10/14/22 0705 POCT GLUCOSE mg/dL 125* 84 92 148* 318* 144* Historical Values: (Includes values prior to this admission) Lab Results Component Value Date HDL 23 10/14/2022 LDL 30 10/14/2022 No results found for: [id number], IRON, TIBC, C3, C4, ASTRID, CANCA, ASO, PSA, CEA, CA125, CA199, AFP, CA153 Imaging ECG 12 lead Atrial flutter with variable A-V block Minimal voltage criteria for LVH, may be normal variant ( R in aVL ) Marked ST abnormality, possible lateral subendocardial injury Abnormal ECG When compared with ECG of 21-JUL-2022 09:50, Atrial flutter has replaced Sinus rhythm T wave inversion more evident in Lateral Confirmed by Celio Singletary (80) on 10/14/2022 8:45:31 PM Limited Echo (TTE) w/wo Limited Doppler, Color Flow, Imaging Agent, Strain, 3D, Bubble Study 1 1 [facility] Heart Station [address] [place] [address] [phone] (fax) Echocardiogram-[facility] Name: ZAIRA SEGURA III Study Date: 10/14/2022 12:55 PM B/P: 133 mmHg/81 mmHg HR: 77 bpm Date of : 1935 [facility]: [facility] [facility] Height: 73 in. Age: 87 year(s) Patient Room: 3109 Weight: 227 lb. Gender: Male Patient Status: InPt BSA: 2.27 m2 Indication: Chest Pain, CAD, ischemic cardiomyopathy Examination: Limited Echo, Lumason Contrast Image Quality: Poor sound transmission in apical views Patient Consent: Procedure explained to patient Exam Details Contrast: 5.0 mg I.V. dose of Lumason Conclusions Left Ventricle: Global left ventricular systolic f (more content not included)... [facility] 10-15-2022 Note Physical Therapy Kym mitchell Patient Name: Zaira Segura III Today's Date: 10/15/2022 Admit Date: 10/13/2022 10/15/22 1403 Time Calculation Start Time 1104 Stop Time 1121 Time Calculation (min) 17 min PT Evaluation Time Entry PT Evaluation (Moderate) Time Entry 11 PT Therapeutic Procedures Time Entry Gait Training Time Entry 10 History of present illness Patient is a 87 y.o. male admits on transfer from [facility] after presenting w/ substernal chest pain. The patient presented to [facility] for an elective cardiac catheterization in mid July. Was found to have multivessel coronary disease and CABG was recommended. However, the patient did not feel that surgical intervention with CABG would be appropriate for him. Past Medical History HTN, CAD w/ multi-vessel dz, hyperlipidemia, DM, CMP, PAD, a-fib, neurological d/o, frequent falls Current Diagnoses NSTEMI Following session: Following session: Pt left up in bedside chair, call light w/in reach, RN aware PRIOR LEVEL OF FUNCTION obtained per patient, OT evaluation this admission Vision: WNL Hearing: WNL Mobility: ambulates household distances with rolling walker and uses rolling walker for community distances. *Patient uses standard walker* ADLs: independent with grooming, bathing, and dressing IADLs/household management: minimal assist with cooking, laundry, and cleaning; nephew helps w/ laundry 1x/wk, although pt often starts laundry in basement. Home set-up Patient lives alone in a 2 story home with 0 steps to enter with 0 handrail. Bedroom location: 1st floor set-up, also patient has laundry in basement. Bathroom location: 1st floor full bath with tub/shower combination. Support system Family OBJECTIVE ASSESSMENT/PHYSICAL EXAM Cognition Alert Overall Cognitive Status: WNL Arousal/Alertness: Appropriate responses to stimuli Orientation Level: Oriented x4 and Impulsive Following Commands: Follows multi-step commands with increased difficulty Safety Judgment: Impulsive Awareness of Errors: Decreased awareness of errors made, Assistance required to identify errors made, and Assistance required to correct errors made Deficits: Decreased awareness of deficits Attention Span: Attends with cues to redirect Memory: Appears intact Problem Solving: Assistance required to identify errors made, Assistance required to generate solutions, and Assistance required to implement solutions Communication: Intact Pain: Denies pain Sensation: WNL Edema: WNL Coordination: WNL Tone: WNL Precautions IV, telemetry, fall risk. Objective assessment Bed mobility Not performed Transfers Sit to stand: performs independently however requires bilateral upper extremity assist and Stand to sit: performs independently however requires bilateral upper extremity assist Gait Patient ambulates 50' x2 feet, with walker, and independent assist; Utilized RW however states use of standard walker at home bc I don't like the wheels. Gait is slow, wide LISETH via hip abduction and B toe out. Decreased coordination w/ turns. Decreased righting reactions noted. Stairs 2 step w/ R railing, CGA; Non-reciprocal gait, leading w/ LLE, excessive use of UE on rail, poor control. Endurance Decreased, quick muscle fatigue. Vitals Stable/unchanged significantly Balance Sitting: patient able to sit independently with both feet on ground, with 0 upper extremity assist. , patient able to sit and reach within base of support without loss of balance with stand-by assist. Standing: patient able to stand with rolling walker) and independent assistance. Posture Sitting: patient sits with forward head and rounded shoulders and is able to correct ~50%. Standing: patient sits with forward head and rounded shoulders and is able to correct ~50%. ROM UE ROM: WNL LE ROM: WNL Strength Functional strength: see bed mobility and transfer comments above. Education Verbal, Feedback during session, Functional mobility, and Safety. [employer] recommended pt not access basement until home PT is able to work on this skill with him. Discussed future safety concepts of carrying laundry in a bag over the forearm or shoulder to allow hands to be free for balance when climbing stairs. Pt's sister is present and indicates pt may need further education and reminders to follow abstract writer's suggestions. Treatment performed consisted of ambulation in the hallway, and stair climbing. Please see above mentioned gait, stair and education sections. Mobility 6-Click T-Score: 6 Clicks (Mobility) Help from another person turning from your back to your side while in a flat bed without using bedrails: None Help from another person moving from lying on your back to sitting on the side of a flat bed without using bedrails: None Help from another person moving to and from a bed to a chair (including a wheelchair): None Hel (more content not included)... [facility] 10-15-2022 Note ---- Attestation signed by Tato White MD at 10/15/2022 6:05 PM I personally saw and examined the patient on the same date of service as resident/fellow Vinh Thompson. I discussed the findings and therapeutic plan with the resident/fellow Vinh Thompson. I agree with the documentation, except for any edits/updates below. Teaching Physician's Revisions: As noted above ---- Subjective Seen this am. No chest pain today. Endorses chest discomfort after meals yesterday but no vomiting, nausea, palpitations SOB. Overnight telemetry unremarkable. Objective Patient Vitals for the past 24 hrs: BP Temp Temp src Pulse Resp SpO2 Weight 10/15/22 0826 130/60 -- -- 56 18 97 % -- 10/15/22 0500 -- -- -- -- -- -- 100 kg (221 lb 1.9 oz) 10/15/22 0400 138/62 36.4 ???C (97.5 ???F) Temporal 59 16 90 % -- 10/15/22 0000 133/63 -- -- 62 14 99 % -- 10/14/222015 131/63 -- -- -- -- -- -- 10/14/222014 131/63 36.7 ???C (98.1 ???F) Temporal 61 12 99 % -- 10/14/22 1600 132/71 -- -- 66 16 100 % -- 10/14/22 1100 133/81 -- -- 59 15 100 % -- 10/14/22 1000 112/63 -- -- 64 14 99 % -- Physical Exam HENT: Head: Normocephalic and atraumatic. Cardiovascular: Rate and Rhythm: Normal rate and regular rhythm. Pulses: Normal pulses. Heart sounds: Normal heart sounds. Pulmonary: Effort: Pulmonary effort is normal. Breath sounds: Normal breath sounds. Abdominal: General: Abdomen is flat. Palpations: Abdomen is soft. Musculoskeletal: Comments: +1 pedal edema Neurological: Mental Status: He is alert. Lab Results Component Value Date NA 140 10/15/2022 K 3.8 10/15/2022 CL 106 10/15/2022 ANIONGAP 12 10/15/2022 BUN 23 10/15/2022 CREATININE 1.40 (H) 10/15/2022 CALCIUM 9.4 10/15/2022 MG 1.5 (L) 10/15/2022 Lab Results Component Value Date BILITOT 1.0 10/14/2022 ALKPHOS 42 10/14/2022 AST 21 10/14/2022 ALT 13 10/14/2022 PROT 6.3 10/14/2022 ALBUMIN 3.9 10/14/2022 Lab Results Component Value Date WBC 6.64 10/15/2022 RBC 4.64 10/15/2022 HGB 13.9 10/15/2022 HCT 41.3 10/15/2022 MCV 89.0 10/15/2022 MCH 30.0 10/15/2022 MCHC 33.7 10/15/2022 RDW 12.8 10/15/2022 NEUTOPHILPCT 58.7 10/14/2022 LYMPHOPCT 27.0 10/14/2022 MONOPCT 10.0 10/14/2022 EOSPCT 3.8 10/14/2022 BASOPCT 0.4 10/14/2022 NEUTROABS 4.21 10/14/2022 LYMPHSABS 1.94 10/14/2022 MONOSABS 0.72 10/14/2022 EOSABS 0.27 10/14/2022 BASOSABS 0.03 10/14/2022 PLT 120 (L) 10/15/2022 NRBC 0.0 10/14/2022 No results found for this or any previous visit from the past 1 day. Assessment/Plan Principal Problem: NSTEMI (non-ST elevated myocardial infarction) ([facility]) - CAD s/p cath 07/30- severe triple vessel disease - Ischemic cardiomyopathy, EF 40% on TTE 10/14, anterior wall akinesis, apical hypokinesis - A flutter, on Eliquis - DM, type 2, last A1c 8.7% in 2020 - CKD 3 - HTN - HLD - Peripheral arterial disease Plan: - stop heparin gtt - continue ASA, lipitor, Toprol - optimize GDMT, continue aldactone and farxiga - cath w/ PCI scheduled for 10/19 Vinh Thompson MD Internal Medicine Resident, [facility] 10/15/22 9:48 AM [facility] 10-15-2022 Note Occupational Therapy Occupational Therapy Evaluation Patient Name: Zaira Segura III : 1935 Today's Date: 10/15/2022 Time In: 746 Time Out: 805 Zaira Segura III is an 87 y.o. male who came from [facility] with chest pain. The patient was transferred to [facility] for higher level of care. The patient presented to [facility] for an elective cardiac catheterization in mid July. Was found to have multivessel coronary disease and CABG was recommended. However, the patient did not feel that surgical intervention with CABG would be appropriate for him. He reports that he has been experiencing regular episodes of substernal chest pain that is nonradiating, pressure-like, worse after eating food or with activity, has associated nausea and vomiting. Today the episode was worse in the morning prompting him to go to the ER. Was having 7-8 out of 10 pain. Is currently pain-free. Was started on nitroglycerin infusion and heparin infusion in the ED for an NSTEMI. Work-up there was notable for ST depression in multiple leads along with an elevated high-sensitivity troponin and proBNP level. 1. NSTEMI 2. 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 Multivessel coronary artery disease 4. Paroxysmal atrial fibrillation General Subjective: friendly and cooperative Patient Active Problem List Diagnosis PAD (peripheral artery disease) ([facility]) Skin ulcer, limited to breakdown of skin ([facility]) Diabetes mellitus ([facility]) Primary hypertension Ischemic ulcer with fat layer exposed ([facility]) Atrial flutter ([facility]) PRASAD (dyspnea on exertion) Chest pain on exertion Cardiomyopathy ([facility]) Coronary artery disease of [place] artery of [place] heart with stable angina pectoris ([facility]) Frequent falls Vascular insufficiency Paroxysmal A-fib ([facility]) 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 ([facility]) Neurological disorder Mixed hyperlipidemia Chronic venous hypertension NSTEMI (non-ST elevated myocardial infarction) ([facility]) Past Medical History: Diagnosis Date Arrhythmia Atrial flutter ([facility]) Diabetes ([facility]) Hypertension Past Surgical History: Procedure Laterality Date HERNIA REPAIR VASCULAR SURGERY Precautions Precautions Medical Precautions: fall risk Pain Pain Assessment Pain Score: 0 - No pain Cognition Cognition Overall Cognitive Status: Within Functional Limits General Assessment General Assessment Hearing: wfl Hand Dominance: Right Home Living Home Living Type of Home: House Lives With: Alone Home Adaptive Equipment: Walker rolling, Walker standard, Cane, Wheelchair-manual (gb toilet) Home Layout: Two level, Full bath main level, Able to live on main level with bedroom/bathroom Home Access: Ramped entrance Bathroom Shower/Tub: Walk-in shower Prior Level of Function Prior Function Level of [place]: Independent with ADLs and functional transfers, Independent with homemaking with ambulation, Other (Comment) (drives, family assist as needed) Prior IADLs IADL History Homemaking Responsibilities: Yes Dynamic Sitting Balance Dynamic Sitting Balance Dynamic Sitting Balance-Level of Assistance: Independent Static Standing Balance Static Standing Balance Static Standing-Level of Assistance: Close supervision (rw) ADL ADL UE Dressing Assistance: Independent LE Dressing Assistance: Stand by Toileting Assistance with Device: Stand by y Transfers Transfers Transfer: (indep supine to sit EOB, SBA with RW:: sit to stand, standing two minutes, 10 feet to toilet/ seated on toilet. to chair and sit) Objective General Assessments Activity Tolerance Endurance: Stage II Vision - Basic Assessment Current Vision: No visual deficits Sensation Light Touch: No apparent deficits Coordination Movements are Fluid and Coordinated: Yes Extremity Assessments RUE Assessment RUE Assessment: (reports no issues with UB / MMT deferred) Outcome Assessments AM-PAC 6 Clicks Putting on and taking off regular lower body clothing?: A Little (Min Assist/Contact Guard/Supervision) Bathing(Including washing,rinsing,drying)?: A Little (Min Assist/Contact Guard/Supervision) Toileting, which includes using the toilet,bedpan,or urinal?: A Little (Min Assist/Contact Guard/Supervision) Putting on and taking off regular upper body clothing?: None (Independent) Taking care of personal grooming such as brushing teeth?: None (Independent) Eating meals?: None (Independent) Total Score OT [facility]: 21 Assessment/Plan OT Assessment OT Impairments: Decreased ADL status, Decreased endurance, Decreased functional mobility OT Assessment/CASTRO Summary: (needs skilled OT due to weakness and fatigue) Prognosis: Good Evaluation/Treatment Tolerance: Patient limited by fatigue Medical Staff Made Aware: Yes OT Education/Comment (more content not included)... [facility] 10-14-2022 Note 10/14/22 1411 Admission Assessment Questions Verify insurance with patient Yes Do you understand medical disease or what brought you into the hospital? Yes Who is your current PCP? Gilson Salgado MD Can I schedule a follow up appointment for you at the time of discharge? Yes (Preferably on Tuesday or Tuesday afternoons) Do you understand why you are taking your current medications? Yes Are you taking your medications as prescribed? Yes Did patient provide teach back? Yes Would you like use our pharmacy [facility] to fill your new medications at the time of Discharge? Yes Does the patient have a test case developer assigned to them through their insurance? No Living Arrangement (Current/Prior to Hospitalization) Private residence Does the patient have history of HHC or SNF? Yes (Recently at [facility] and discharged home with [facility]) Assistive Device Walker;Wheelchair Patient's goal for discharge Discharge home Was patient reminded that goal for discharge is 11am? Yes Does the patient have transportation at discharge? Yes Type of Residence/Post Acute Needs Private residence Is PT/OT appropriate? Yes Is PT/OT ordered? Yes Is SW consult appropriate? No Is SW consult ordered? No Do you understand the benefits of MyChart? Yes Were you able to send link and activate MyChart? No [facility] 10-14-2022 Note [facility] Medicine Daily Progress Note - 10/14/2022 11:02 AM; Room: [address] [place] [address] Admission: 10/13/2022 10:28 PM; Length of stay: 1 days THE HOSPITALIST TEAM PREFERS TO USE [employer] FOR COMMUNICATION 7AM-7PM. IF I DO NOT RESPOND WITHIN 15 MINUTES, PLEASE PAGE ME/CALL THROUGH THE RUBBER STAMPS AND DIES SUPERVISOR. FROM 7PM-7AM, PLEASE PAGE [phone](COVR) Code Status: Full Code Discharge Destination: home Discharge planning: Cath likely tomorrow Overview Patient is seen for evaluation and management of NSTEMI. Subjective Patient denies active chest pain, SOB, N/V. Physical Exam Visit Vitals BP 152/85 (BP Location: Right arm, Patient Position: Lying) Pulse 80 Temp 36.6 ???C (97.9 ???F) (Temporal) Resp 10 Intake/Output Summary (Last 24 hours) at 10/14/2022 1102 Last data filed at 10/14/2022 1000 Gross per 24 hour Intake 360 ml Output -- Net 360 ml Physical Exam Constitutional: Appearance: Normal appearance. Cardiovascular: Rate and Rhythm: Normal rate and regular rhythm. Pulmonary: Effort: Pulmonary effort is normal. Breath sounds: Normal breath sounds. Abdominal: General: Abdomen is flat. Palpations: Abdomen is soft. Musculoskeletal: Right lower leg: Edema present. Left lower leg: Edema present. Neurological: General: No focal deficit present. Mental Status: He is alert and oriented to person, place, and time. Estimated body mass index is 29.96 kg/m??? as calculated from the following: Height as of this encounter: 1.854 m (6' 1 ). Weight as of this encounter: 103 kg (227 lb 1.2 oz). Active Inpatient Problems Principal Problem: NSTEMI (non-ST elevated myocardial infarction) ([facility]) Assessment and Plan # NSTEMI: # MVD: - Continue heparin drip. - Cath tomorrow. - Continue aspirin, Toprol and Lipitor. # Paroxysmal A.fib, currently in NSR: - Continue Toprol. Hold Eliquis for heart cath (currently on heparin drip). # IDDM2: - Continue his Lantus at reduced dose 20 U BID. - Check A1C. 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 Add Farxiga and spironolactone. Nutrition Screen VTE Prophylaxis: IV heparin Scheduled Meds aspirin, 81 mg, oral, Daily atorvastatin, 20 mg, oral, Nightly dapagliflozin propanediol, 10 mg, oral, Daily insulin aspart, 0-20 Units, subcutaneous, With meals & nightly insulin glargine, 20 Units, subcutaneous, BID losartan, 50 mg, oral, BID metoprolol succinate XL, 100 mg, oral, Daily [START ON 10/15/2022] spironolactone, 25 mg, oral, Daily heparin, 0-28 Units/kg/hr, Last Rate: 14 Units/kg/hr (10/14/22 1057) Oxygen Therapy, Pertinent Investigations Hematology: Results from last 7 days Lab Units 10/14/22 0032 WBC AUTO 10*3/uL 7.18 HEMOGLOBIN g/dL 13.3 HEMATOCRIT % 38.6* MCV fL 88.5 PLATELETS AUTO 10*3/uL 128* INR 1.28* Chemistry: Results from last 7 days Lab Units 10/14/22 0032 SODIUM mmol/L 140 POTASSIUM mmol/L 3.6 CHLORIDE mmol/L 105 CO2 mmol/L 29 BUN mg/dL 27* CREATININE mg/dL 1.27 GLUCOSE mg/dL 135* CALCIUM mg/dL 9.1 Results from last 7 days Lab Units 10/14/22 0032 AST U/L 21 ALT U/L 13 ALK PHOS U/L 42 BILIRUBIN TOTAL mg/dL 1.0 Results from last 7 days Lab Units 10/14/22 0705 10/13/22 2243 POCT GLUCOSE mg/dL 144* 160* Historical Values: (Includes values prior to this admission) Lab Results Component Value Date HDL 23 10/14/2022 LDL 30 10/14/2022 No results found for: [id number], IRON, TIBC, C3, C4, ASTRID, CANCA, ASO, PSA, CEA, CA125, CA199, AFP, CA153 Imaging Cardiac catheterization Addendum: PROCEDURE PHYSICIAN: Adrián Munroe MD Clinical Presentation: 87 y.o. Male with history of hypertension, hyperlipidemia, atrial flutter on Eliquis, and CKD stage III. Patient has dyspnea on exertion and chest and abdominal discomfort. He notes difficulty with chest and abdominal discomfort after eating meals over the last few months. He has abnormal EKG and abnormal stress test concerning for CAD. His EKG has significant lateral ST depression. His stress test showed a reduced ejection fraction of 37%. He presents for coronary angiogram. Final Impression: 1) severe triple vessel CAD with significant coronary calcification Plan: 1) optimal med therapy for CAD and systolic CHF 2) Start Aspirin 81 mg daily for CAD. Continue Eliquis 5 mg bid for atrial flutter / prevention of stroke. 3) High intensity statin therapy. He is on atorvastatin 40 mg daily. 4) Add Ezetimibe 10 mg daily 5) He is on metoprolol tartrate. I switched this to Metoprolol ER 100 mg daily. He is on losartan which we continued. 6) Add Imdur 30 mg daily for anti-anginal medical therapy. 7) close outpatient follow up with [facility]. Re-address revascularization decision in the outpatient setting. If he agrees to pursue PCI, then I will perform PCI LAD with atherectomy and IVUS via femoral access. If PCI is chosen, then the LAD disease is the worst and I will focus on the proximal and mi (more content not included)... [facility] 10-14-2022 Note Clinical Nutrition A ssessment Name: Zaira Segura III Date: 1935 Date of Visit: 10/14/22 Reason for assessment: nutrition screen HF Information obtained from: patient, medical record, and nursing Medical History No chief complaint on file. Past Medical History: Diagnosis Date Arrhythmia Atrial flutter (CMS/HCC) Diabetes (CMS/HCC) Hypertension Past Surgical History: Procedure Laterality Date HERNIA REPAIR VASCULAR SURGERY Current Outpatient Medications Medication Instructions apixaban (Eliquis) 5 mg tablet 1 tablet, oral, 2 times daily RT atorvastatin (Lipitor) 40 mg tablet TAKE 1 TABLET BY MOUTH EVERYDAY AT BEDTIME ezetimibe (ZETIA) 10 mg, oral, Daily famotidine (PEPCID) 20 mg, oral, 2 times daily RT insulin glargine (Lantus) 100 unit/mL (3 mL) pen INJECT 28 UNITS TWICE DAILY, MAY BE ADJUSTED UP TO 30 UNITS insulin lispro (HumaLOG) 100 unit/mL injection PLEASE SEE ATTACHED FOR DETAILED DIRECTIONS isosorbide mononitrate ER (IMDUR) 30 mg, oral, Daily, Do not crush or chew. losartan (COZAAR) 50 mg, oral, 2 times daily RT metoprolol succinate XL (TOPROL-XL) 100 mg, oral, Daily, Do not crush or chew. potassium chloride CR (Klor-Con) 10 mEq ER tablet TAKE 1 TABLET BY MOUTH TWICE A DAY Allergies Allergen Reactions Multivitamin Unknown Niacin Cause sweating Nutrition Problems: Geriatric feeding skills: Ability to feed oneself Physical findings: obese Skin Integrity: skin intact Other factors: +1 BLE edema Evaluated for CABG in mid July, opted to hold off at that time. C/o chest pain, evaluation for NSTEMI Results from last 7 days Lab Units 10/14/22 0705 10/14/22 0032 10/13/22 2243 GLUCOSE mg/dL -- 135* -- POCT GLUCOSE mg/dL 144* -- 160* BUN mg/dL -- 27* -- CREATININE mg/dL -- 1.27 -- SODIUM mmol/L -- 140 -- POTASSIUM mmol/L -- 3.6 -- HEMOGLOBIN g/dL -- 13.3 -- WBC AUTO 10*3/uL -- 7.18 -- I/O: Intake/Output Summary (Last 24 hours) at 10/14/2022 1011 Last data filed at 10/14/2022 0015 Gross per 24 hour Intake 0 ml Output -- Net 0 ml Current Medications: aspirin, 81 mg, oral, Daily atorvastatin, 40 mg, oral, Nightly ezetimibe, 10 mg, oral, Daily famotidine, 20 mg, oral, BID insulin aspart, 0-20 Units, subcutaneous, With meals & nightly insulin glargine, 28 Units, subcutaneous, BID losartan, 50 mg, oral, BID metoprolol succinate XL, 100 mg, oral, Daily potassium chloride CR, 10 mEq, oral, BID Anthropometrics: Height: 185.4 cm (6' 1 ) Weight: 103 kg (227 lb 1.2 oz) Body mass index is 29.96 kg/m???. Wt history: 07/13/22- 105 kg IBW: 83.6 kg Nutrition Assessment: Diet History: lives at home alone. Reports nausea/vomiting has been an intermittent occurrence. Pt unsure of the cause. Needs based on: ideal body weight Calorie needs: 1804-2171 kcals/day based on Equation: 25-30 kcal/kg Protein needs: 83-100 g/day based on 1-1.2 g/kg Fluid needs: 2090 ml/day based on 25 ml/kg Dietary Orders (From admission, onward) Start Ordered 10/14/22 0935 Regular Diet Heart Healthy/HTN, CABG,Stroke, (2gNA, low fat, low cholesterol) Diet effective now Question Answer Comment Room Service? Yes Fat restriction: Heart Healthy/HTN, CABG,Stroke, (2gNA, low fat, low cholesterol) 10/14/22 0934 10/14/22 0935 Special Kitchen Request Once Comments: Please send rice krispies with milk, fruit cup, and a cranberry juice. Thanks 10/14/22 0935 Nutrition Risk: Low Nutrition Diagnosis: inadequate oral food/beverage intake related to chest pain/nausea as evidenced by decreased intakes, not wanting to eat much Nutrition Recommendations: Continue current diet Plan for heart cath tomorrow. Per RN, no longer considering a CABG Reviewed HF diet education Monitor intakes and tolerance of diet. Goals: Nutrition Goals: intake > 75% meals Angelo Sanchez RD [facility] 10-14-2022 Note Hospital Medicine History and Physical 10/13/2022 11:11 PM THE HOSPITALIST TEAM PREFERS TO USE [employer] FOR COMMUNICATION 7AM-7PM. IF I DO NOT RESPOND WITHIN 15 MINUTES, PLEASE PAGE ME/CALL THROUGH THE RUBBER STAMPS AND DIES SUPERVISOR. FROM 7PM-7AM, PLEASE PAGE [phone](COVR) Chief Complaint No chief complaint on file. History of Present Illness Zaira Segura III is an 87 y.o. male who came from [facility] with chest pain. The patient was transferred to [facility] for higher level of care. The patient presented to [facility] for an elective cardiac catheterization in mid July. Was found to have multivessel coronary disease and CABG was recommended. However, the patient did not feel that surgical intervention with CABG would be appropriate for him. He reports that he has been experiencing regular episodes of substernal chest pain that is nonradiating, pressure-like, worse after eating food or with activity, has associated nausea and vomiting. Today the episode was worse in the morning prompting him to go to the ER. Was having 7-8 out of 10 pain. Is currently pain-free. Was started on nitroglycerin infusion and heparin infusion in the ED for an NSTEMI. Work-up there was notable for ST depression in multiple leads along with an elevated high-sensitivity troponin and proBNP level. Review of System and Physical Exam Heart Rate: [85] 85 Resp: [17] 17 BP: (129)/(53) 129/53 Physical Exam Vitals reviewed. Constitutional: General: He is not in acute distress. Appearance: Normal appearance. He is normal weight. He is not ill-appearing or toxic-appearing. HENT: Head: Normocephalic and atraumatic. Right Ear: External ear normal. Left Ear: External ear normal. Nose: Nose normal. Mouth/Throat: Mouth: Mucous membranes are moist. Pharynx: Oropharynx is clear. Eyes: Extraocular Movements: Extraocular movements intact. Conjunctiva/sclera: Conjunctivae normal. Pupils: Pupils are equal, round, and reactive to light. Cardiovascular: Rate and Rhythm: Normal rate and regular rhythm. Pulses: Normal pulses. Heart sounds: Normal heart sounds. Pulmonary: Effort: Pulmonary effort is normal. Breath sounds: Normal breath sounds. Abdominal: General: Abdomen is flat. Bowel sounds are normal. Palpations: Abdomen is soft. Musculoskeletal: Cervical back: Normal range of motion and neck supple. Right lower leg: Edema present. Left lower leg: Edema present. Skin: General: Skin is warm and dry. Capillary Refill: Capillary refill takes less than 2 seconds. Neurological: General: No focal deficit present. Mental Status: He is alert and oriented to person, place, and time. Mental status is at baseline. Psychiatric: Mood and Affect: Mood normal. Behavior: Behavior normal. Review of Systems Constitutional: Negative. HENT: Negative. Eyes: Negative. Respiratory: Positive for shortness of breath. Cardiovascular: Positive for chest pain and leg swelling. Gastrointestinal: Positive for nausea and vomiting. Endocrine: Negative. Genitourinary: Negative. Musculoskeletal: Negative. Skin: Negative. Allergic/Immunologic: Negative. Neurological: Negative. Hematological: Negative. Psychiatric/Behavioral: Negative. All other systems reviewed and are negative. 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 [place] 07/27/2022 Neurological disorder 07/27/2022 Chronic venous hypertension 07/27/2022 Coronary artery disease of [place] artery of [place] heart with stable angina pectoris [place] 07/21/2022 Frequent falls 07/21/2022 Mixed hyperlipidemia 04/24/2022 PRASAD (dyspnea on exertion) 02/09/2022 Chest pain on exertion 02/09/2022 Skin ulcer, limited to breakdown of skin [place] 05/21/2021 Ischemic ulcer with fat layer exposed [place] 05/21/2021 Diabetes mellitus [place] 12/22/2020 Primary hypertension 12/22/2020 Atrial flutter [place] 12/22/2020 PAD (peripheral artery disease) [place] 11/06/2020 Cardiomyopathy [place] 07/15/2022 Assessment and Plan 1. NSTEMI 2. 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 Multivessel coronary artery disease 4. Paroxysmal atrial fibrillation 5. Insulin-dependent type 2 diabetes 6. Peripheral arterial disease Admitted to medicine service Continue intravenous nitroglycerin and heparin drip, repeat cardiac enzymes and monitor on telemetry Cardiology consulted, keep n.p.o. for possible cath in a.m. Home medications reviewed and reconciled Patient is full code VTE Prophylaxis: IV heparin ----- Focus of this inpatient stay will remain on problems that need acute care setting for care. We will review available studies and will order additional labs, imagi (more content not included)... [facility] 09-15-2022 Note bmp [facility] 07-27-2022 Note Cardiology Clinic No te Subjective Zaira Segura III is a 87 y.o. year old male patient with history of severe triple-vessel coronary artery disease on angiography on 07/21/2022, hypertension, hyperlipidemia, atrial flutter on Eliquis, and CKD stage III Patient Active Problem List Diagnosis PAD (peripheral artery disease) (CMS/HCC) Skin ulcer, limited to breakdown of skin (CMS/HCC) Diabetes mellitus (CMS/HCC) Primary hypertension Ischemic ulcer with fat layer exposed (CMS/HCC) Atrial flutter (CMS/HCC) PRASAD (dyspnea on exertion) Chest pain on exertion Cardiomyopathy (CMS/HCC) Coronary artery disease of [place] artery of [place] heart with stable angina pectoris (CMS/HCC) Frequent falls Vascular insufficiency Paroxysmal A-fib (CMS/HCC) 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 Male with history of hypertension, hyperlipidemia, atrial flutter on Eliquis, and CKD stage III. Patient has dyspnea on exertion and chest and abdominal discomfort. He notes difficulty with chest and abdominal discomfort after eating meals over the last few months. He has abnormal EKG and abnormal stress test concerning for CAD. His EKG has significant lateral ST depression. His stress test showed a reduced ejection fraction of 37%. Update: 07/27/2022 He is seen in follow-up status post PCI which revealed multivessel coronary artery disease He was evaluated by CT surgery and deemed not to be a candidate for surgery due to comorbidities Today, he reports he has been doing well No recurrence of chest pain Denies dyspnea Frustrated with medication changes Review of Systems Cardiovascular: Positive for leg swelling. Negative for chest pain, dyspnea on exertion, irregular heartbeat, near-syncope, orthopnea, palpitations and syncope. Neurological: Negative for dizziness and light-headedness. Objective Visit Vitals BP 94/55 (BP Location: Right arm, Patient Position: Sitting, BP Cuff Size: Large adult) Pulse 64 Ht 1.854 m (6' 1 ) Wt 104 kg (229 lb) SpO2 97% BMI 30.21 kg/m??? Smoking Status Never BSA 2.31 m??? Physical Exam General: Awake, alert, good spirits. NAD Pulm: Breath sounds clear to ascultation bilaterally with no wheeze, crackles or rhonchi Cards: Regular rate and rhythm, S1, S2. No S3 or S4 gallop. Murmur: none Abd: Soft, Nontender, physiologic bowel sounds are present Extr: Lower extremity edema: Trace. Skin: warm, dry, well perfused Neuro: A&Ox3, No gross deficits Allergies Allergies Allergen Reactions Multivitamin Unknown Niacin Cause sweating Medications Current Outpatient Medications: apixaban (Eliquis) 5 mg tablet, Take 1 tablet by mouth in the morning and at bedtime., Disp: , Rfl: atorvastatin (Lipitor) 40 mg tablet, TAKE 1 TABLET BY MOUTH EVERYDAY AT BEDTIME, Disp: , Rfl: ezetimibe (Zetia) 10 mg tablet, Take 1 tablet (10 mg) by mouth in the morning., Disp: 90 tablet, Rfl: 3 insulin glargine (Lantus) 100 unit/mL (3 mL) pen, INJECT 28 UNITS TWICE DAILY, MAY BE ADJUSTED UP TO 30 UNITS, Disp: , Rfl: insulin lispro (HumaLOG) 100 unit/mL injection, PLEASE SEE ATTACHED FOR DETAILED DIRECTIONS, Disp: , Rfl: isosorbide mononitrate ER (Imdur) 30 mg 24 hr tablet, Take 1 tablet (30 mg) by mouth in the morning. Do not crush or chew., Disp: 90 tablet, Rfl: 3 losartan (Cozaar) 50 mg tablet, Take 50 mg by mouth in the morning and at bedtime., Disp: , Rfl: metoprolol succinate XL (Toprol-XL) 100 mg 24 hr tablet, Take 1 tablet (100 mg) by mouth in the morning. Do not crush or chew., Disp: 90 tablet, Rfl: 3 potassium chloride CR (Klor-Con) 10 mEq ER tablet, TAKE 1 TABLET BY MOUTH TWICE A DAY, Disp: 180 tablet, Rfl: 3 Recent Labs Lab Results Component Value Date BUN 25 07/16/2022 CALCIUM 8.6 07/16/2022 Lab Results Component Value Date WBC 6.2 07/16/2022 HGB 12.5 07/16/2022 HGB 37.7 07/16/2022 Imaging and other tests Coronary angiography: 07/21/2022 Left main: The left main is short and bifurcates into the LAD and left circumflex coronary arteries. The left main is patent. LAD: The LAD is a large vessel. The ostial LAD has 90% calcified stenosis and the proximal LAD has diffuse 80% calcified stenosis. The mid LAD has additional area of 70% calcified stenosis. The distal LAD is patent. There are 2 diagonal branches. The first diagonal branch has diffuse 70 to 80% stenosis in its proximal segment. The second diagonal branch is patent LCX: the circumflex is a large vessel and is dominant. The first obtuse marginal branch is 70% stenosis in the proximal segment. The second obtuse (more content not included)... [facility] 07-21-2022 Note Error. Note made in [facility] Patient: Zaira payne III Procedure Information Date/Time: 07/21/22 1130 Procedures: CORONARY ANGIOGRAPHY Left heart cath Location: [facility] [employer] 3 / [facility] (Cath) Providers: Adrián Munroe MD Clinical information reviewed: Allergies Meds Physical Exam Airway Mallampati: III Neck ROM: full Cardiovascular Rhythm: regular Rate: normal Dental Pulmonary - normal exam Abdominal - normal exam Abdomen: soft Anesthesia Plan ASA 3 other (Conscious sedation) Anesthetic plan and risks discussed with patient. Use of blood products discussed with patient who consented to blood products. Plan discussed with fellow. Additional Equipment Requests [facility] 07-13-2022 Note Patient here for 2 w osage follow up stress test and to discuss ablation per Tara Cardenas DNP. Denies SOB but still gets intermittent chest pain. Denies palpitations and bleeding on Eliquis. Review of Systems Constitutional: Positive for malaise/fatigue. Cardiovascular: Positive for chest pain. Respiratory: Negative. Gastrointestinal: Positive for heartburn, nausea and vomiting. All other systems reviewed and are negative. [facility] Consult Note Reason for visit: follo wup echo, stress not done HPI: Zaira Segura III is a 87 y.o. year old with past medical history of a-flutter, dm2, PAD, htn. He is here for Follow-up regarding echo and stress. Stress test revealed evidence of low EF 37% and defects suggestive of infarction. He had echocardiogram done 02/18/2022 which showed normal LV function size, moderate concentric LV hypertrophy, normal left atrium, normal right atrium no significant valvular abnormality was, mild pulmonic regurgitation but now EF via nuclear is 37%. Previous HPI per Dr. Singletary: Chief Complaint: Atrial flutter History of Present Illness: Mr. Segura is a 86-year-old gentleman with a past medical history of diabetes mellitus type 2, peripheral arterial disease, hypertension, who was diagnosed with atrial flutter while he was inpatient at [facility] for a foot wound. He was started on Eliquis and beta-blockers at that time. Since then he has been battling the issue of his right foot infection. He is very unhappy about his foot situation saying that this is limited his activity. He used to previously bike a lot specially many was in [place]. He denied any active chest pain but stated that he has felt some fatigue mainly due to inactivity. He seemed to be tolerating his Eliquis without any significant bleeding issues. EKG 08/04/2021 in the clinic shows sinus rhythm with PAC EKG 10/02/2020: SR ECHO 10/02/2020 1. Normal ventricular systolic function 2. Mild diastolic dysfunction 3. Normal right-sided pressures 4. No significant valvular dysfunction ---- -------- PMH: Past Medical History: Diagnosis Date Arrhythmia Atrial flutter (CMS/HCC) Diabetes (CMS/HCC) Hypertension PSH: Past Surgical History: Procedure Laterality Date HERNIA REPAIR VASCULAR SURGERY SH: Social Determinants of Health Tobacco Use: Low Risk Smoking Tobacco Use: Never Smokeless Tobacco Use: Never Passive Exposure: Not on file Alcohol Use: Not on file Financial Resource Strain: Not on file Food Insecurity: Not on file Transportation Needs: Not on file Physical Activity: Not on file Stress: Not on file Social Connections: Not on file Intimate Partner Violence: Not on file Depression: Not on file Housing Stability: Not on file Allergies: Allergies Allergen Reactions Multivitamin Unknown Niacin Cause sweating Weight: 105kg Vitals: 07/13/22 1253 BP: 104/61 Pulse: 64 SpO2: 98% Meds: Current Outpatient Medications on File Prior to Visit Medication Sig Dispense Refill apixaban (Eliquis) 5 mg tablet Take 1 tablet by mouth in the morning and at bedtime. atorvastatin (Lipitor) 40 mg tablet TAKE 1 TABLET BY MOUTH EVERYDAY AT BEDTIME insulin glargine (Lantus) 100 unit/mL (3 mL) pen INJECT 28 UNITS TWICE DAILY, MAY BE ADJUSTED UP TO 30 UNITS insulin lispro (HumaLOG) 100 unit/mL injection PLEASE SEE ATTACHED FOR DETAILED DIRECTIONS losartan (Cozaar) 50 mg tablet Take 50 mg by mouth in the morning and at bedtime. metoprolol tartrate (Lopressor) 50 mg tablet Take 1 tablet (50 mg) by mouth in the morning and at bedtime. 60 tablet 0 potassium chloride CR (Klor-Con) 10 mEq ER tablet TAKE 1 TABLET BY MOUTH TWICE A DAY 180 tablet 3 No current facility-administered medications on file prior to visit. ROS: Cardio Basic Cardiovascular Symptoms: no lightheadedness, no leg edema, no syncope, no orthopnea, no PND, no claudication, Constitutional Constitutional: no fever, no night sweats, no significant weight gain, no significant weight loss, no exercise intolerance Eyes Eyes: no dry eyes, no irritation, no vision change ENMT Ears: no difficulty hearing, no ear pain Nose: no frequent nosebleeds, Mouth/Throat: no sore throat, no bleeding gums, no snoring, no dry mouth, no mouth ulcers, no oral abnormalities, no teeth problems Respiratory Respiratory: no cough, no wheezing, no coughing up blood, no sleep apnea Musculoskeletal Musculoskeletal: no muscle aches, no muscle weakness, joint pain+, no back pain, no swelling in the extremities Integumentary Skin no rash, no ulcer, no varicosities, no discoloration, no pruritus Neurologic Neurologic: no loss of consciousness, no weakness, no numbness, no seizures, no dizziness, no headaches Psychiatric Psych: no depression[facility] (more content not included)... [facility] 06-29-2022 Note [facility] Consul t Note Reason for visit: [facility] echo, stress not done HPI: Zaira Segura III is a 87 y.o. year old with past medical history of a-flutter, dm2, PAD, htn. He is here for Follow-up regarding echo and stress. Stress test was not done. He had echocardiogram done 02/18/2022 which showed normal LV function size, moderate concentric LV hypertrophy, normal left atrium, normal right atrium no significant valvular abnormality was, mild pulmonic regurgitation His ECG showed sinus rhythm with first-degree AV block and it did show T wave abnormalities, discussed with patient needs to follow-up with stress test so we can Rule out ischemia . I discussed with him he may need to go ablation for a-flutter but we should rule out ischemic and worsening structural concerns. Chest pain improved but has some discomfort with exertion, denies lightheadedness, dizziness, recent palpitations Previous HPI per Dr. Singletary: Chief Complaint: Atrial flutter History of Present Illness: Mr. Segura is a 86-year-old gentleman with a past medical history of diabetes mellitus type 2, peripheral arterial disease, hypertension, who was diagnosed with atrial flutter while he was inpatient at [facility] for a foot wound. He was started on Eliquis and beta-blockers at that time. Since then he has been battling the issue of his right foot infection. He is very unhappy about his foot situation saying that this is limited his activity. He used to previously bike a lot specially many was in [place]. He denied any active chest pain but stated that he has felt some fatigue mainly due to inactivity. He seemed to be tolerating his Eliquis without any significant bleeding issues. EKG 08/04/2021 in the clinic shows sinus rhythm with PAC EKG 10/02/2020: SR ECHO 10/02/2020 1. Normal ventricular systolic function 2. Mild diastolic dysfunction 3. Normal right-sided pressures 4. No significant valvular dysfunction ---- -------- PMH: Past Medical History: Diagnosis Date Arrhythmia Atrial flutter (CMS/HCC) Diabetes (CMS/HCC) Hypertension PSH: Past Surgical History: Procedure Laterality Date HERNIA REPAIR VASCULAR SURGERY SH: Social Determinants of Health Tobacco Use: Low Risk Smoking Tobacco Use: Never Smokeless Tobacco Use: Never Passive Exposure: Not on file Alcohol Use: Not on file Financial Resource Strain: Not on file Food Insecurity: Not on file Transportation Needs: Not on file Physical Activity: Not on file Stress: Not on file Social Connections: Not on file Intimate Partner Violence: Not on file Depression: Not on file Housing Stability: Not on file Allergies: Allergies Allergen Reactions Niacin Cause sweating Weight: 103kg Vitals: 06/29/22 1431 BP: 125/59 Pulse: 63 SpO2: 98% Meds: Current Outpatient Medications on File Prior to Visit Medication Sig Dispense Refill apixaban (Eliquis) 5 mg tablet Take 1 tablet by mouth in the morning and at bedtime. atorvastatin (Lipitor) 40 mg tablet TAKE 1 TABLET BY MOUTH EVERYDAY AT BEDTIME insulin glargine (Lantus) 100 unit/mL (3 mL) pen INJECT 28 UNITS TWICE DAILY, MAY BE ADJUSTED UP TO 30 UNITS insulin lispro (HumaLOG) 100 unit/mL injection PLEASE SEE ATTACHED FOR DETAILED DIRECTIONS magnesium oxide (Mag-Ox) 400 mg (241.3 mg magnesium) tablet Take 1 tablet by mouth in the morning. metoprolol tartrate (Lopressor) 50 mg tablet Take 1 tablet (50 mg) by mouth in the morning and at bedtime. 60 tablet 0 potassium chloride CR (Klor-Con) 10 mEq ER tablet TAKE 1 TABLET BY MOUTH TWICE A DAY 180 tablet 3 valsartan (Diovan) 80 mg tablet Take 1 tablet by mouth in the morning. zinc gluconate 50 mg tablet Take 1 tablet by mouth in the morning. No current facility-administered medications on file prior to visit. ROS: Cardio Basic Cardiovascular Symptoms: no lightheadedness, no leg edema, no syncope, no orthopnea, no PND, no claudication, Constitutional Constitutional: no fever, no night sweats, no significant weight gain, no significant weight loss, no exercise intolerance Eyes Eyes: no dry eyes, no irritation, no vision change ENMT Ears: no difficulty hearing, no ear pain Nose: no frequent nosebleeds, Mouth/Throat: no sore throat, no bleeding gums, no snoring, no dry mouth, no mouth ulcers, no oral abnormalities, no teeth problems Respiratory Respiratory: no cough, no wheezing, no coughing up blood, no sleep apnea Musculoskeletal Musculoskeletal: no muscle aches, no muscle weakness, joint pain+, no back pain, no swelling in the extremities Integumentary Skin no rash, no ulcer, no varicosities, no discoloration, no pruritus Neurologic Neurologic: no loss of consciousness, no weakness, no numbness, no seizures, no dizziness, no headaches Psychiatric Psych: n (more content not included)... [facility] 06-29-2022 Note Patient is here toda y to discuss ablation does not want stress test Review of Systems Constitutional: Positive for malaise/fatigue. Cardiovascular: Positive for chest pain, dyspnea on exertion and palpitations. Negative for near-syncope. Respiratory: Negative for shortness of breath and sleep disturbances due to breathing. Gastrointestinal: Positive for heartburn, nausea and vomiting. Neurological: Negative for dizziness and light-headedness. All other systems reviewed and are negative. [facility] 04-26-2022 Evaluation + Plan note Extrac monty from: Title:Discharge Note Author:Camilo ROGERS MD te:04/26/22 Discharge To, Anticipated II - Group Home Unit Discharged to - Home independently Transported by, Anticipated - Family Discharge Status: Fair Discharge Instructions Given: To patient Discharge disposition: SNF once arranged Prescriptions reviewed with Patient and sister 25 Minute in discharge time Discharge Diet(s): Low Sodium- 2000 mg (04/24/22 10:19:00) Prescriptions aspirin 81 mg Oral EC Tab, 81 mg= 1 tab(s), Oral, Daily losartan 50 mg Tab, 50 mg= 1 tab(s), Oral, BID Home ascorbic acid 250 mg oral tablet, 250 mg= 1 tab(s), Oral, BID, Not taking atorvastatin 40 mg Tab, 40 mg= 1 tab(s), Oral, Bedtime BD MAIDA 2 GEN PEN NDL [id number] BD UF MAIDA PEN NEEDLE [id number] CVS ZINC 50 MG TABLET Eliquis 5 mg oral tablet, Still taking, not as prescribed: tAKES 2 TABLETS TWICE DAILY Handicap Placard, See Instructions HumaLOG KwikPen 100 units/mL injectable solution ketorolac Opth 0.5% Catherine Lantus Solostar Pen 100 units/mL subcutaneous solution Lopressor 25 mg oral tablet magnesium oxide 400 mg Tab ofloxacin Opth 0.3% Catherine Potassium Chloride (Jnx-Fbrf-Esq 10) 10 mEq oral tablet, extended release With When Contact Information Follow-up with your eye surgery Dr. Within 7 to 10 days Additional Instructions: Call for followup appointment Call physician if symptoms worsen DOMINGO MEDRANO Within 7 to [address] [place] [address] [facility] (1) Additional Instructions: Call for followup appointment Call physician if symptoms worsen Fall Prevention in the Home, Adult Extracted from: Title:Progress/SOAP Note Author:Ahmet PABLO, Abdoul Shrestha Date:04/25/22 1. Fall (W19.XXXA: Unspecifi ed fall, initial encounter) 2. Closed head injury without concussion (S09.90XA: Unspecified injury of head, initial encounter) 3. Elevated troponin (R77.8: Other specified abnormalities of plasma proteins) Patient presented with a fall and hypertensive urgency which may have caused type II demand ischemia. Patient declines stress test and catheterization at this time. I have ordered an echocardiogram but unfortunately this was unable to be completed. Would recommend he at least undergo a 2D echo with Doppler to define his LV function, pulmonary pressures and valvular status. Would recommend holding anticoagulation given his recent fall and laceration. He will continue baby aspirin and Lopressor. He will continue his losartan 50 mg p.o. twice daily for blood pressure control. Understand discharge planning is in process but would request that he at least get his echocardiogram tomorrow morning. Thoroughly explained to the patient the concern I have about his heart with respect to his stress test and/or catheterization. The patient keeps repeating that he is in no shape for a stress test and I explained to him that it would be a nonwalking stress test and he once again declines after voicing understanding. Even so he said he would not do a catheterization even if the stress test was abnormal so there is really no point in doing the stress test. He will continue medical management. Patient to follow-up with Dr. Leo going forward. 4. Hypertensive urgency (I16.0: Hypertensive urgency) 5. History of atrial fibrillation (Z86.79: Personal history of other diseases of the circulatory system) 6. Chronic kidney disease (N18.9: Chronic kidney disease, unspecified) 7. Laceration of face (S01.81XA: Laceration without foreign body of other part of head, initial encounter) 8. Diabetes (E11.9: Type 2 diabetes mellitus without complications) 9. Hyperlipidemia (E78.5: Hyperlipidemia, unspecified) 10. Peripheral vascular disease (I73.9: Peripheral vascular disease, unspecified) 11. Shoulder pain (M25.519: Pain in unspecified shoulder) Orders: aspirin, 81 mg = 1 tab(s), Tab-EC, Oral, Daily, Routine, Start date 04/24/22 10:00:00 EDT losartan, 50 mg = 1 tab(s), Tab, Oral, BID for 30 day(s), Stop date 05/24/22 10:14:00 EDT, Start date 04/24/22 10:15:00 EDT Extracted from: Title:Progress note Author:KEN PABLO, Camilo Murillo Constantin e:04/25/22 Discharge To, Anticipated II - Group Home Unit Discharged to - Home independently Transported by, Anticipated - Family Discharge Status: Fair Discharge Instructions Given: To patient Discharge disposition: SNF once arranged Prescriptions reviewed with Patient 25 Minute in discharge time Discharge Diet(s): Low Sodium- 2000 mg (04/24/22 10:19:00) Prescriptions aspirin 81 mg Oral EC Tab, 81 mg= 1 tab(s), Oral, Daily losartan 50 mg Tab, 50 mg= 1 tab(s), Oral, BID Home ascorbic acid 250 mg oral tablet, 250 mg= 1 tab(s), Oral, BID, Not taking atorvastatin 40 mg Tab, 40 mg= 1 tab(s), Oral, Bedtime BD MAIDA 2 GEN PEN NDL [id number] BD UF MAIDA PEN NEEDLE [id number] CVS ZINC 50 MG TABLET Eliquis 5 mg oral tablet, Still taking, not as prescribed: tAKES 2 TABLETS TWICE DAILY Handicap Placard, See Instructions HumaLOG KwikPen 100 units/mL injectable solution ketorolac Opth 0.5% Catherine Lantus Solostar Pen 100 units/mL subcutaneous solution Lopressor 25 mg oral tablet magnesium oxide 400 mg Tab ofloxacin Opth 0.3% Catherine Potassium Chloride ([id number]-Jcxs-Hql 10) 10 mEq oral tablet, extended release With When Contact Information Follow-up with your eye surgery DrZara Within 7 to 10 days Additional Instructions: Call for followup appointment Call physician if symptoms worsen DOMINGO MEDRANO Within 7 to [address] [place] [address] [facility] (1) Additional Instructions: Call for followup appointment Call physician if symptoms worsen Fall Prevention in the Home, Adult Addendum by Camilo ROGERS MD on April 26, 2022 09:46:33 EDT Use this as a progress note as patient discharged Extracted from: Title:Progress note Author:Camilo ROGERS MD Constantin e:04/24/22 Discharged to - Home independently Discharge Status: Fair Discharge Instructions Given: To patient Discharge disposition: Home with physical therapy recommendations Prescriptions reviewed with Patient 25 Minute in discharge time Discharge Diet(s): Low Sodium- 2000 mg (04/24/22 10:19:00) Prescriptions aspirin 81 mg Oral EC Tab, 81 mg= 1 tab(s), Oral, Daily losartan 50 mg Tab, 50 mg= 1 tab(s), Oral, BID Home ascorbic acid 250 mg oral tablet, 250 mg= 1 tab(s), Oral, BID, Not taking atorvastatin 40 mg Tab, 40 mg= 1 tab(s), Oral, Bedtime BD MAIDA 2 GEN PEN NDL [id number] BD UF MAIDA PEN NEEDLE [id number] CVS ZINC 50 MG TABLET Eliquis 5 mg oral tablet, Still taking, not as prescribed: tAKES 2 TABLETS TWICE DAILY Handicap Placard, See Instructions HumaLOG KwikPen 100 units/mL injectable solution ketorolac Opth 0.5% Catherine Lantus Solostar Pen 100 units/mL subcutaneous solution Lopressor 25 mg oral tablet magnesium oxide 400 mg Tab ofloxacin Opth 0.3% Catherine Potassium Chloride ([id number]-Tilg-Dyg 10) 10 mEq oral tablet, extended release With When Contact Information Follow-up with your eye surgery Dr. Within 7 to 10 days Additional Instructions: Call for followup appointment Call physician if symptoms worsen DOMINGO MEDRANO Within 7 to 10 [place] [address] [facility] (1) Additional Instructions: Call for followup appointment Call physician if symptoms worsen Fall Prevention in the Home, Adult Addendum by Camilo ROGERS MD on April 25, 2022 08:14:22 EDT Use this as a progress note as patient was not discharged due to pending placement Addendum by Camilo ROGERS MD on April 25, 2022 08:16:12 EDT . Extracted from: Title:Consult Note Author:Wilmer Leo MD te:04/24/22 1. Fall (W19.XXXA: Unspecifi ed fall, initial encounter) 2. Closed head injury without concussion (S09.90XA: Unspecified injury of head, initial encounter) 3. Elevated troponin (R77.8: Other specified abnormalities of plasma proteins) Patient has mildly elevated troponin, but does not wish to pursue any kind of stress testing let alone catheterization. Would recommend adding baby aspirin 81 mg p.o. daily, increasing his losartan to 50 mg twice a day, and continuing his Lopressor 25 mg p.o. twice daily. Would hold Eliquis therapy until after his eye laceration has healed. He is currently in sinus rhythm. 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 Thank you very much for the opportunity to participate in the cardiac care of your patient. Consultation time took place between 8 AM and 8:30 AM. 4. Hypertensive urgency (I16.0: Hypertensive urgency) 5. History of atrial fibrillation (Z86.79: Personal history of other diseases of the circulatory system) 6. Chronic kidney disease (N18.9: Chronic kidney disease, unspecified) 7. Laceration of face (S01.81XA: Laceration without foreign body of other part of head, initial encounter) 8. Diabetes (E11.9: Type 2 diabetes mellitus without complications) 9. Hyperlipidemia (E78.5: Hyperlipidemia, unspecified) 10. Peripheral vascular disease (I73.9: Peripheral vascular disease, unspecified) 11. Shoulder pain (M25.519: Pain in unspecified shoulder) Extracted from: Title:Admission H & P Author:Sixto GROSS DO Date:04/24/22 1. Fall (W19.XXXA: Unspecifi ed fall, initial encounter) Patient denied any focal motor deficits palpitations or dizziness prior to his fall. He describes having balance problems chronically since a young adult. He states he has had other falls most recent one was 2 months prior evolving his left lower extremity that he fell on this occasion with his left foot getting caught in the threshold. Note at first appeared to have some subtle asymmetry with relative weakness of dorsiflexion on the left versus the right. With repeated evaluation however there was symmetry. Patient has been using a walker occasionally a wheelchair since described foot injury where he stepped on a nail and had extensive cellulitis and was hospitalized in [place]. He states after that hospitalization he had rehabilitation and has had persistent weakness. In light of his use of anticoagulants and living at home and stated history of chronic balance issues though denied any imbalance precipitating this fall which sided mechanical we will ask physical and Occupational Therapy to evaluate for gait safety 2. Closed head injury without concussion (S09.90XA: Unspecified injury of head, initial encounter) Patient does have significant ecchymosis and swelling of his right eyelid. We will monitor him closely especially as patient has been taking a higher than intended dose of Eliquis see below. We will hold the Eliquis and observe any neurologic deficits. We will consult with cardiology with below and also ask for their opinion as to when it would be safe to resume oral anticoagulants at a lower dose than he was taking see below. Patient is presently in sinus rhythm. 3. Elevated troponin (R77.8: Other specified abnormalities of plasma proteins) Question if secondary to hypertensive urgency and decreased renal clearance, with fall we will check CPK to rule out musculoskeletal involvement. Complete cardiac enzyme panel, observe on telemetry, patient is not on aspirin but he is on statin and beta-blockade. Consult with cardiology Ordered: metoprolol, 25 mg = 1 tab(s), Tab, Oral, Once, Stop date 04/24/22 4:00:00 EDT, Routine, Start date 04/24/22 4:00:00 EDT, 04/24/22 3:09:00 EDT Consult to Cardiology Creatine Kinase 4. Hypertensive urgency (I16.0: Hypertensive urgency) Patient states he was at his eye doctor last week and his blood pressure was normal he cannot recall what his blood pressure was however. Question a stress response to above. Resume patient's metoprolol given an extra dose at this time especially in light of anticoagulants and head trauma, will make as needed IV Lopressor with parameters available avoid getting overly aggressive in the event this is a stress response and as his catecholamine levels declined as his pain from the fall decreases did not wish to precipitate significant drop in blood pressure. Continue ARB patient is on valsartan we have losartan on formulary Ordered: metoprolol, 25 mg = 1 tab(s), Tab, Oral, Once, Stop date 04/24/22 4:00:00 EDT, Routine, Start date 04/24/22 4:00:00 EDT, 04/24/22 3:09:00 EDT metoprolol, 5 mg = 5 mL, Injection, IV Push, q4hr PRN Other (see comment), Routine, Start date 04/24/22 3:09:00 EDT, 04/24/22 3:09:00 EDT Consult to Cardiology 5. History of atrial fibrillation (Z86.79: Personal history of other diseases of the circulatory system) Presently in sinus rhythm. Patient states he was under the impression his truck driving instructor wanted him on 10 mg twice daily and states he was frustrated that he only was prescribed 5 mg. He states he has been taking two 5 mg tablets for a total of 10 mg twice daily suggesting a total daily dose of 20 mg. I advised him the usual dose for atrial fibrillation is 5 mg twice daily and with his age being greater than 80 and his creatinine greater than 1.5 ordinarily recommend 2.5 mg twice daily. We will consult with cardiology for their advice and recommendation Ordered: metoprolol, 25 mg = 1 tab(s), Tab, Oral, Once, Stop date 04/24/22 4:00:00 EDT, Routine, Start date 04/24/22 4:00:00 EDT, 04/24/22 3:09:00 EDT Consult to Cardiology 6. Chronic kidney disease (N18.9: Chronic kidney disease, unspecified) Patient acknowledges being told his kidneys were not working normally he is uncertain what stage what his baseline creatinine is but states it was felt to be due to diabetes. Patient did state that he had a cough last week with a bout of diarrhea though not prerenal could have some intravascular depletion and some of this being under the influence of acute renal insufficiency superimposed on chronic. We have no prior labs to compare. Recheck in the a.m. note patient states he takes potassium daily despite renal insufficiency despite not being on diuretics his potassium is 4.3. We will hold at this time 7. Laceration of face (S01.81XA: Laceration without foreign body of other part of head, initial encounter) Patient did receive sutures in the emergency department 8. Diabetes (E11.9: Type 2 diabetes mellitus without complications) Patient acknowledges and blood sugar is controlled evening blood sugars and not uncommonly in the 200s. We will continue his basal insulin, cover with Humalog sliding scale, check hemoglobin A1c. I cannot get a history of orthostasis cannot rule out role of autonomic insufficiency if indeed he has had poor long-term control. With described elevated blood sugars at home and no decreased appetite likelihood of hypoglycemia on home basal insulin is low Ordered: HgbA1c 9. Hyperlipidemia (E78.5: Hyperlipidemia, unspecified) Continue statin, see above check CPK 10. Peripheral vascular disease (I73.9: Peripheral vascular disease, unspecified) Patient advises that he did have percutaneous intervention in the right lower extremity 11. Shoulder pain (M25.519: Pain in unspecified shoulder) I cannot appreciate any bony fracture on plain films await radiologist interpretation. Patient seems to feel that his shoulder discomfort which has existed only intermittently prior to the fall was more significant after the fall not have any significant crepitance or decreased range of motion emanation. We will monitor we will avoid nonsteroidals with above. Suspect this is musculoskeletal and not in light of above atypical symptoms of myocardial ischemia but we will consult cardiology with above Orders: acetaminophen, 650 mg = 2 tab(s), Tab, Oral, q6hr PRN Pain, Routine, Start date 04/24/22 3:15:00 EDT, 04/24/22 3:15:00 EDT Al hydroxide/Mg hydroxide/simethicone, 30 mL, Susp-Oral, Oral, q6hr PRN Indigestion, Routine, Start date 04/24/22 3:15:00 EDT atorvastatin, 40 mg = 1 tab(s), Tab, Oral, Bedtime, Routine, Start date 04/24/22 21:00:00 EDT, 04/24/22 3:18:00 EDT glucose, 50 mL, Soln-IV, IV Push, Once PRN Blood glucose, Routine, Start date 04/24/22 3:10:00 EDT insulin glargine, 28 unit(s), SubCutaneous, AMPM, Routine, Start date 04/24/22 9:00:00 EDT, 04/24/22 3:18:00 EDT insulin lispro, 0-10 Units, Injection-Insulin, SubCutaneous, QIDACHS, Routine, Start date 04/24/22 7:30:00 EDT losartan, 50 mg = 1 tab(s), Tab, Oral, Daily, Routine, Start date 04/24/22 9:00:00 EDT, 04/24/22 3:20:00 EDT magnesium hydroxide, 30 mL, Susp-Oral, Oral, q6hr PRN Constipation, Routine, Start date 04/24/22 3:15:00 EDT metoprolol, 25 mg = 1 tab(s), Tab, Oral, BID, Routine, Start date 04/24/22 9:00:00 EDT, 04/24/22 3:19:00 EDT ondansetron, 4 mg = 2 mL, Injection, IV Push, q6hr PRN Nausea, Routine, Start date 04/24/22 3:15:00 EDT, 04/24/22 3:15:00 EDT senna, 17.2 mg = 2 tab(s), Tab, Oral, BID PRN Other (see comment), Routine, Start date 04/24/22 3:15:00 EDT, 04/24/22 3:15:00 EDT Sodium Chloride 0.9% intravenous solution 1,000 mL, 1,000 mL, IV, 50 mL/hr, Routine, Start date 04/24/22 3:15:00 EDT, 20 hour(s), Total volume (mL): 1,000, 107.3 kg, 2.33, m2 Ambulate with Assistance Basic Metabolic Panel Below the Knee Intermittent Pneumatic Compression Device Cardiac Monitoring CBC w/ Auto Diff Diabetic/Calorie Control Diet Education Fall Risk Hypoglycemia Protocol Responsive Patient Hypoglycemia Protocol Unresponsive Patient Notify Provider Vital Signs Notify Provider Vital Signs Occupational Therapy Evaluate Patient, Develop a Plan of Care and Implement Plan Physical Therapy Evaluate Patient, Develop a Plan of Care and Implement Plan Place in Status Precautions Precautions Resuscitation Status - Full Routine Capillary Glucose POC Troponin 9 Hr. Vital Signs Weight Admit patient as an observation for if patient rules out for acute coronary syndrome, if patient proves to be stable with ambulation with therapy and he demonstrates neurologic deficits would then be anticipated to require 1 midnight stay [facility]03-18-2023 Hospital Discharge instructions Patient Education 04/24/2022 10:20:51 Fall Prevention in the Home, Adult Fall Prevention in the Home, Adult Falls can cause injuries and can affect people from all age groups. There are many simple things that you can do to make your home safe and to help prevent falls. Ask for help when making these changes, if needed. What actions can I take to prevent falls? General instructions Use good lighting in all rooms. Replace any light bulbs that burn out. Turn on lights if it is dark. Use night-lights. Place frequently used items in [id number] places. Lower the shelves around your home if necessary. Set up furniture so that there are clear paths around it. Avoid moving your furniture around. Remove throw rugs and other tripping hazards from the floor. Avoid walking on wet floors. Fix any uneven floor surfaces. Add color or contrast paint or tape to grab bars and handrails in your home. Place contrasting color strips on the first and last steps of stairways. When you use a stepladder, make sure that it is completely opened and that the sides are firmly locked. Have someone hold the ladder while you are using it. Do not climb a closed stepladder. Be aware of any and all pets. What can I do in the bathroom? Keep the floor dry. Immediately clean up any water that spills onto the floor. Remove soap buildup in the tub or shower on a regular basis. Use non-skid mats or decals on the floor of the tub or shower. Attach bath mats securely with double-sided, non-slip rug tape. If you need to sit down while you are in the shower, use a plastic, non-slip stool. Install grab bars by the toilet and in the tub and shower. Do not use towel bars as grab bars. What can I do in the bedroom? Make sure that a bedside light is easy to reach. Do not use oversized bedding that drapes onto the floor. Have a firm chair that has side arms to use for getting dressed. What can I do in the kitchen? Clean up any spills right away. If you need to reach for something above you, use a sturdy step stool that has a grab bar. Keep electrical cables out of the way. Do not use floor lithuanian or wax that makes floors slippery. If you must use wax, make sure that it is non-skid floor wax. What can I do in the stairways? Do not leave any items on the stairs. Make sure that you have a light switch at the top of the stairs and the bottom of the stairs. Have them installed if you do not have them. Make sure that there are handrails on both sides of the stairs. Fix handrails that are broken or loose. Make sure that handrails are as long as the stairways. Install non-slip stair treads on all stairs in your home. Avoid having throw rugs at the top or bottom of stairways, or secure the rugs with carpet tape to prevent them from moving. Choose a carpet design that does not hide the edge of steps on the stairway. Check any carpeting to make sure that it is firmly attached to the stairs. Fix any carpet that is loose or worn. What can I do on the outside of my home? Use bright outdoor lighting. Regularly repair the edges of walkways and driveways and fix any cracks. Remove high doorway thresholds. Trim any shrubbery on the main path into your home. Regularly check that handrails are securely fastened and in good repair. Both sides of any steps should have handrails. Install guardrails along the edges of any raised decks or porches. Clear walkways of debris and clutter, including tools and rocks. Have leaves, snow, and ice cleared regularly. Use sand or salt on walkways during winter months. In the garage, clean up any spills right away, including grease or oil spills. What other actions can I take? Wear closed-toe shoes that fit well and support your feet. Wear shoes that have rubber soles or lowheels. Use mobility aids as needed, such as canes, walkers, scooters, and crutches. Review your medicines with your health care provider. Some medicines can cause dizziness or changesin blood pressure, which increase your risk of falling. Talk with your health care provider about other ways that you can decrease your risk of falls. Thismay include working with a physical therapist or green jobs trainer to improve your strength, balance, and endurance. Where to find more information Centers for Disease Control and PreventionSHEREEN: https://www.cdc.gov [employer] [place] on Aging: https://ja8ywer.gumaro.nih.gov Contact a health care provider if: You are afraid of falling at home. You feel weak, drowsy, or dizzy at home. You fall at home. Summary There are many simple things that you can do to make your home safe and to help prevent falls. Ways to make your home safe include removing tripping hazards and installing grab bars in the bathroom. Ask for help when making these changes in your home. This information is not intended to replace advice given to you by your health care provider. Make sure you discuss any questions you have with your health care provider. Document Released: 01/14/2003 Document Revised: 01/06/2018 Document Reviewed: 09/08/2017 [employer] Patient Education 2020 [employer]. Follow Up Care 04/23/2022 18:13:42 With:Follow-up with your eye surgery DrZara Address:Unknown When:7 to 10 days Comments:Call for followup appointmentCall physician if symptoms worsen With:DOMINGO MEDRANO Address: [address] [place], [place] [id number] [facility] (1) When:7 to 10 days Comments:Call for followup appointmentCall physician if symptoms worsen [facility]03-02-2023 NoteOPERATIVE NOTE OPERATION DATE: 04/08/2022 SURGEON: Cricket Tierney D.O. PREOPERATIVE DIAGNOSIS: Nuclear sclerotic cataract right eye. POSTOPERATIVE DIAGNOSIS: Nuclear sclerotic cataract right eye. PROCEDURE NAME: Cataract extraction with intraocular lens placement of the right eye. ANESTHESIA: Topical ESTIMATED BLOOD LOSS: Zero. COMPLICATIONS: None. PROCEDURE: The patient was brought to the Operating Room in supine position. After proper identification, the right eye was prepped and draped in a sterile ophthalmic fashion. A paracentesis created at the 11 o'clock position. Approximately 1 cc of unpreserved Xylocaine was injected into the anterior chamber followed by Amvisc Plus. Using a 2.6 mm Keratome blade, a clear corneal incision was created at the 9 o'clock limbus. A cystotome was then used to begin a curvilinear capsulorrhexis that was continued for 360 degrees with the Utrata forceps. BSS on a 26 gauge cannula was injected beneath the anterior capsule to hydrodissect as well as hydrodelineate the lens. After ensuring mobility, phacoemulsification was performed in a didacci-fib-qowpve-type fashion. After all nuclear material had been removed from the eye, IA was introduced and all residual cortical material was cleaned up. Additional Amvisc Plus was injected into the posterior bag and a lens model MX60, 19.5 diopters was injected and dialed into position. After ensuring centration, IA was reintroduced into the anterior chamber and all residual Amvisc Plus was removed from the eye. BSS on a 30 gauge cannula was injected into the stroma of both the clear corneal incision as well as paracentesis to hydrate the wounds. Additional BSS was injected into the anterior chamber to pressurize the eye at approximately 20 to 22 mmHg by finger tension. 0.1 cc of antibiotic was injected into the anterior chamber and Weck-Shikha sponges were used to check the wounds to be watertight. One drop of apraclonidine and one drop of prednisolone acetate placed into the eye and a shield was placed over top. The patient was sent to the postoperative area in satisfactory condition to follow up the following day for postoperative care.[facility] [id number] NotePREOPERATIVE HISTORY AND PHYSICAL Date:04/07/2022 HISTORY: Patient is an 86-year-old white male with complaints of declining vision out of his right eye. He states that things come in and out of focus in his vision out of his right eye. He says mostly he describes his vision as blurred. It makes it difficult to watch television and read. He also states having difficulty at night time while driving because of headlights creating glare and halos. PAST OCULAR HISTORY / PAST MEDICAL HISTORY / SOCIAL HISTORY / MEDICATIONS / ALLERGIES TO MEDICATIONS / REVIEW OF SYSTEMS / PHYSICAL EXAM: Unchanged from previously dictated. ASSESSMENT AND PLAN: 1. Visually significant cataract, right eye. After risks, benefits, alternatives, as well as expectations were delivered to the patient, he elected to go forward with cataract removal. He understands the risks include but not limited to infection, bleeding, loss of vision, loss of the eye itself. Secondly, he understands postoperatively he is likely to require spectacle correction for his best visual acuity. Finally, a complete ophthalmic exam was performed, there is not determined to be any other source of visual decline other than that of the cataract. 2. COVID-19, the patient was briefed in the office and consented for elective cataract surgery in the setting of the pandemic of coronavirus. He understands that he is at heightened risk going into a hospital setting; however, feels that his activities of daily living are depleted severe enough by his cataracts that he is willing to incur this risk and go forward with his elective procedure.[facility] [id number] NoteOPERATIVE NOTE OPERATION DATE: 03/11/2022 SURGEON: Cricket Tierney D.O. PREOPERATIVE DIAGNOSIS: Nuclear sclerotic cataract left eye. POSTOPERATIVE DIAGNOSIS: Nuclear sclerotic cataract left eye. PROCEDURE NAME: Cataract extraction with intraocular lens placement of the left eye. ANESTHESIA: Topical ESTIMATED BLOOD LOSS: Zero. COMPLICATIONS: None. PROCEDURE: The patient was brought to the Operating Room in supine position. After proper identification, the left eye was prepped and draped in a sterile ophthalmic fashion. A paracentesis created at the 5 o'clock position. Approximately 1 mL of unpreserved Xylocaine was injected into the anterior chamber followed by Amvisc Plus. Using a 2.6 mm Keratome blade, a clear corneal incision was created at the 3 o'clock limbus. A cystotome was then used to begin a curvilinear capsulorrhexis that was continued for 360 degrees with the Utrata forceps. BSS on a 26 gauge cannula was injected beneath the anterior capsule to hydrodissect as well as hydrodelineate the lens. After ensuring mobility, phacoemulsification was performed in a [id number]-type fashion. After all nuclear material had been removed from the eye, IA was introduced and all residual cortical material was cleaned up. Additional Amvisc Plus was injected into the posterior bag and a lens model MX60, 19.5 diopters was injected and dialed into position. After ensuring centration, IA was reintroduced into the anterior chamber and all residual Amvisc Plus was removed from the eye. BSS on a 30 gauge cannula was injected into the stroma of both the clear corneal incision as well as paracentesis to hydrate the wounds. Additional BSS was injected into the anterior chamber to pressurize the eye at approximately 20 to 22 mmHg by finger tension. 0.1 cc of antibiotic was injected into the anterior chamber. Weck-Shikha sponges were used to check the wounds to be watertight. One drop of apraclonidine and one drop of prednisolone acetate placed into the eye and a shield was placed over top. The patient was sent to the postoperative area in satisfactory condition to follow up the following day for postoperative care.[facility] [id number] NoteHISTORY AND PHYSICAL EXAMINATION Date:03/10/2022 HISTORY: The patient is an 86-year-old white male complaining of declining vision out of his left eye. He feels that his vision is described as blurred and things coming in out of focus in vision. He is having difficulty seeing the TV guide on the television and it is difficult to read. He also states having difficulty at night time while driving with the headlights creating glare and halos. PAST OCULAR HISTORY: Denies. PAST MEDICAL HISTORY: 1. Insulin dependent diabetes mellitus. 2. Hypertension. 3. Hypercholesterolemia. 4. Coronary artery disease. 5. Arterial surgery on the right leg. SOCIAL HISTORY: Denies tobacco, alcohol or recreational drug abuse. SYSTEMIC MEDICATIONS: Zinc gluconate, valsartan, potassium chloride, metoprolol, magnesium oxide, Humalog, Lantus, atorvastatin and Eliquis. ALLERGIES: Denies. REVIEW OF SYSTEMS: No pertinent positives. PHYSICAL EXAM: VITALS: Blood pressure measured at 126/60 with a respiratory rate of 12 and pulse of 69. GENERAL: He is awake, alert and oriented x3, well developed, well nourished, in no acute distress. HEART: Regular rate and rhythm. LUNGS: Clear bilaterally. ABDOMEN: Soft, non-tender, non-distended. EXTREMITIES: No pitting edema. OPHTHALMIC EXAM: Revealed a visual acuity of 20/40 that glared to 20/200 bilaterally. Pupils motility, muscle balance, confrontational visual jackson within normal limits bilaterally. Pressures measured at 16 bilaterally. Slit lamp exam revealed blepharitis with a severe decrease in tear film bilaterally. Conjunctiva, cornea, anterior chamber and iris were within normal limits bilaterally. Lens status demonstrated a 3-4+ nuclear sclerosis bilaterally. FUNDUS EXAM: Revealed good view with good dilation bilaterally. Optic discs, macula, vessels, periphery and vitreous were within normal limits bilaterally. ASSESSMENT AND PLAN: 1. Visually significant cataract, left eye. After risks, benefits, alternatives, as well as expectations were delivered to the patient, he elected to go forward with cataract removal. He understands the risks include but not limited to infection, bleeding, loss of vision, loss of the eye itself. Secondly, he understands postoperatively he is likely to require spectacle correction for his best visual acuity. Finally, a complete ophthalmic exam was performed, there is not determined to be any other source of visual decline other than that of the cataract. 2. COVID-19, the patient was briefed in the office and consented for elective cataract surgery in the setting of the pandemic of coronavirus. He understands that he is at heightened risk going into a hospital setting; however, feels that his activities of daily living are depleted severe enough by his cataracts that he is willing to incur this risk and go forward with his elective procedure.[facility] Future Appointments Appointment Date:06/25/2022 10:00:00 AM Scheduled Provider: Location:[facility] Appointment Type: Nurse Visit Future Scheduled Tests Laboratory* HgbA1c 06/08/22 * Microalbumin Level Urine 06/08/22 * CBC w/ Auto Diff 06/08/22 * Comprehensive Metabolic Panel 06/08/22 * Lipid [facility] Future [facility]ments Appointment Date:06/02/2023 09:15:00 AM Scheduled Provider:Gilson Salgado MD Location:[facility] Appointment Type: Open Appointment Date:11/22/2023 01:00:00 PM Scheduled Provider: Location:[facility] Appointment Type:FM Medicare Wellness Subsequent Diagnostic Tests Pending * HgbA1c 04/20/23 * Microalbumin Level Urine 04/20/23 * U Protein/Creat Ratio 04/20/23 [facility] course Narrative No data available for this section [facility] Discharge instructions No data available for this section [facility] No data available for this section [facility] Summary Purpose Family History No Family History Records FoundNo Family History Records Found No data available for this section No Family History Records FoundNo Family History Records FoundNo Family History Records Found Advance Directives No Advanced Directives Records FoundNo Advanced Directives Records FoundNo Advanced Directives Records FoundNo Advanced Directives Records FoundNo Advanced Directives Records Found Additional Source Comments (unrecognized sect ion and content) No Status Records FoundNo Status Records FoundNo Status Records FoundNo Status Records FoundNo Status Records Found INFORMATION SOURCE (unrecogn ized section and content) DATE CREATED AUTHOR 10/24/2020 [facility] DATE CREATED AUTHOR AUTHOR'S ORGANIZ ATION 07/18/2022 [facility] DATE CREATED AUTHOR AUTHOR'S ORGANIZ ATION 05/03/2023 [facility] DATE CREATED AUTHOR AUTHOR'S ORGANIZ ATION 05/06/2023 [facility]ical [facility] DATE CREATED AUTHOR AUTHOR'S ORGANIZ ATION 06/08/2023 [facility] Patient Care team informatio n (unrecognized section and content) Personnel Name: DOMINGO MEDRANO MD Address: Address: [address] [place] [address] Personnel Name: Gilson Salgado MD Address: Address: [address] [place] [address] Personnel Name: Gilson Salgado MD Address: Address: [address] [place] [address] FOR RECORDS PERTAINING TO PATIENTS WHO ARE OR HAVE BEEN ENROLLED IN A CHEMICAL DEPENDENCY/SUBSTANCEABUSE PROGRAM, SOME INFORMATION MAY BE OMITTED. This clinical summary was aggregated from multiple sources. Caution should be exercised in using it in the provision of clinical care. This summary normalizes information from multiple sources, and as a consequence, information in this document may materially change the coding, format and clinical context of patient data. In addition, data may be omitted in some cases. CLINICAL DECISIONS SHOULD BE BASED ON THE PRIMARY CLINICAL RECORDS. [facility] [employer] [facility] provides no warranty or guarantee of the accuracy or completeness of information in this document.
[2023-06-23 15:29] LABS: Anion Gap 10.3; BUN Creatinine Ratio 19.1; Calcium 9.2 mg/dL (8.5-10.1); Carbon Dioxide 30.5 mmol/L (21.0-32.0); Chloride 106 mmol/L (98-107); Estimated GFR (African America >60 (>=60); Estimated GFR (Non-African Ame 50 (>=60); Potassium 3.8 mmol/L (3.5-5.1); Sodium 143 mmol/L (136-145)
[2023-06-23 15:35] LABS: Glucose 47 mg/dL (74-106)
== END 2023-06-23 14:26 | disposition home or self-care (01) ==
LOC: LAB 14:26
PROVIDERS: PCP Family Medicine; Visit Provider Nurse Practitioner Family
DX: I50.22 Chronic systolic (congestive) heart failure (principal)
CPT/HCPCS: 36415; 80048; 83880

== ENCOUNTER 2023-07-13 15:15 | Emergency (ER) | payer MEDICARE, SELFPAY ==
[2023-07-13 15:21] VITALS: BP 120/65; PULSE 80; TEMP 36.8; O2SAT 96; BMI 29.7
--- NOTE | 2023-07-13 15:31 | ED_ITS ---
HPI - Wound/Laceration General Chief Complaint: Wound/Laceration Stated Complaint: Wound check on leg Time Seen by Provider: 07/13/23 15:23 Source: patient Mode of arrival: walk-in Limitations: no limitations History of Present Illness HPI narrative: Patient is an 88-year-old male who presents to the emergency department for a wound dressing to an open blistered area to the left anterior tibia. He states that he had a blister develop which has now opened and he has an open wound to the left anterior tibia. He has a home health care provider, but states they would not come out to dress the wound because it is a new problem and he needed to come to the emergency department. There has been no significant drainage, he has no focal medical complaints. He states he was instructed to come here to have the wound dressed so at home health can take care of it at home. He states he also wants someone to clean his toes because he took the bandage off the cause bleeding the other day and would like it cleaned while he is here. Related Data Home Medications ?Medication ?Instructions ?Recorded ?Confirmed apixaban 5 mg tablet (Eliquis) 5 mg PO BID 07/08/22 07/13/23 atorvastatin 40 mg tablet 40 mg PO QDAY 07/08/22 07/13/23 insulin glargine 100 unit/mL (3 28 unit subcut QDAY 07/08/22 07/13/23 mL) subcutaneous pen (Lantus Solostar U-100 Insulin) losartan 50 mg tablet (Cozaar) 50 mg PO QDAY 07/08/22 07/13/23 metoprolol succinate 25 mg 25 mg PO QDAY 07/08/22 10/13/22 tablet,extended release 24 hr ezetimibe 10 mg tablet 10 mg PO DAILY 10/13/22 10/13/22 potassium chloride 10 mEq 10 meq PO BID 10/13/22 10/13/22 tablet,extended release furosemide 20 mg tablet 20 mg PO DAILY 07/13/23 07/13/23 losartan 25 mg tablet 25 mg PO DAILY 07/13/23 07/13/23 metoprolol succinate 100 mg 100 mg PO BID 07/13/23 07/13/23 tablet,extended release 24 hr Previous Rx's ?Medication ?Instructions ?Recorded cephalexin 500 mg capsule 500 mg PO Q8H 10 days #30 caps 07/13/23 Allergies Allergy/AdvReac Type Severity Reaction Status Date / Time niacin AdvReac Mild Flushing Verified 07/13/23 15:31 Review of Systems ROS Constitutional Denies: fever or chills Ears, nose, mouth, and throat Denies: throat pain or nasal congestion Gastrointestinal Denies: nausea or vomiting Musculoskeletal Denies: extremity pain Integumentary/Breast Denies: rash Neurological Denies: headache Hematologic/Lymphatic Denies: easy bruising or easy bleeding Exam Narrative Exam Narrative: Gen.: Awake, alert, in no distress Head: Normocephalic, atraumatic ENT: Moist mucous membranes Respiratory: No respiratory distress Extremities: 5 cm circular open blistered area to the left anterior tibia. No drainage or purulence noted. Mild erythema of the left anterior tibia consistent With chronic vascular changes. No blanching erythema, fluctuance or red streaking noted. Psych: Normal mood and affect Neuro: No focal neuro deficit Skin: Warm, dry, intact Constitutional Vital Signs, click to edit/add: Last Vital Signs Temp 98.2 F 07/13/23 15:21 Pulse 80 07/13/23 15:21 Resp 18 07/13/23 15:21 BP 120/65 07/13/23 15:21 Pulse Ox 96 07/13/23 15:21 O2 Del Method Room Air 07/13/23 15:21 Course Vital Signs Vital signs: Vital Signs Temperature 98.2 F 07/13/23 15:21 Pulse Rate 80 07/13/23 15:21 Respiratory Rate 18 07/13/23 15:21 Blood Pressure 120/65 07/13/23 15:21 Pulse Oximetry 96 07/13/23 15:21 Oxygen Delivery Method Room Air 07/13/23 15:21 Temperature 98.2 F 07/13/23 15:21 Pulse Rate 80 07/13/23 15:21 Respiratory Rate 18 07/13/23 15:21 Blood Pressure 120/65 07/13/23 15:21 Pulse Oximetry 96 07/13/23 15:21 Oxygen Delivery Method Room Air 07/13/23 15:21 MDM - Wound/Laceration MDM Narrative Medical decision making narrative: Exam is consistent with an open wound to the left anterior tibia, no evidence of significant cellulitis or infection at this time. Patient demands multiple times to have his toes cleaned and have the dressing applied. He states he only came to the ER to have his leg cleaned and dressed. He has home health at home. He was given a wound care referral as well. Keflex given for home to prevent infection. Follow-up with PCP and return to the ER if symptoms change or worsen Medical Records Attestation: I reviewed the patient's medical records. Discharge Plan Discharge Stand Alone Forms: Portal Instructions Chief Complaint: Wound/Laceration Clinical Impression: Encounter for dressing of wound Patient Disposition: Home, Self-Care Time of Disposition Decision: 15:28 Condition: Good Prescriptions / Home Meds: New cephalexin 500 mg capsule 500 mg PO Q8H 10 Days Qty: 30 0RF No Action Eliquis 5 mg tablet 5 mg PO BID losartan [Cozaar] 50 mg tablet 50 mg PO QDAY metoprolol succinate 25 mg tablet extended release 24 hr 25 mg PO QDAY atorvastatin 40 mg tablet 40 mg PO QDAY insulin glargine [Lantus Solostar U-100 Insulin] 100 unit/mL (3 mL) insulin pen 28 unit subcut QDAY potassium chloride 10 mEq tablet extended release 10 meq PO BID ezetimibe 10 mg tablet 10 mg PO DAILY furosemide 20 mg tablet 20 mg PO DAILY metoprolol succinate 100 mg tablet extended release 24 hr 100 mg PO BID losartan 25 mg tablet 25 mg PO DAILY Print Language: Turkish Instructions: Acute Wounds (ED) Additional Instructions: Follow up with wound care clinic [phone] Referrals: GILSON SALGADO [Primary Care Provider] - 1 week
[2023-07-13] MEDS: BACITRACIN OINTMENT 28.4 GM TUBE 1 APPLIC TOPICAL (15:38)
== END 2023-07-13 16:01 | disposition home or self-care (01) ==
PROVIDERS: Emergency Provider Emergency Medicine; PCP Family Medicine
DX: Z48.00 Encounter for change or removal of nonsurgical wound dressing (principal)
CPT/HCPCS: 99283

== ENCOUNTER 2024-08-24 10:25 | Outpatient (OUT) | payer MEDICARE, SELFPAY ==
--- OUTSIDE RECORDS SUMMARY | 2024-08-16 13:15 | XMS_ITS | Encounter Summary ---
Author Organization [facility] Address [address] [place] [address] Care Team Providers Care Scene Painter Name Role Phone Sky Landon MD Primary Care Provider [phone] Reason for Visit * Reason Comments Follow-up Nailcare Encounter Details Date Type Department Care Team (Late st Contact Info) Description 08/16/2024 1:15 PM EDT Procedure Visit [facility] [address] [place] [address] French Silver, DPM [address] [place] [address] Diabetic polyneuropathy associated with type 2 diabetes mellitus (HCC) (Primary Dx); Onychomycosis; Corns and callosities Social History Tobacco Use Types Packs/Day Years Used Date Smoking Tobacco: Never Smokeless Tobacco: Never Alcohol Use Standard Drinks/Week Comments Never 0 (1 standard drink = 0.6 oz pur e alcohol) Sex and Gender Information Value Date Recorded Sex Assigned at Not on file Legal Sex Male 8:35 PM EDT Gender Identity Not on file Sexual Orientation Not on file documented as of this encounter Last Filed Vital Signs Vital Sign Reading Time Taken Comments Blood Pressure 101/51 08/16/2024 12:53 PM EDT Pulse 58 08/16/2024 12:53 PM EDT Temperature - - Respiratory Rate - - Oxygen Saturation - - Inhaled Oxygen Concentration - - Weight 102 kg (224 lb) 08/16/2024 12:53 PM EDT Height 185.4 cm (6' 1 ) 08/16/2024 12:53 PM EDT Body Mass Index 29.55 08/16/2024 12:53 PM EDT documented in this encounter Progress Notes * Moisessharmainesofia Silver, DPM - 08/16/2024 1:15 PM EDT Curtis Segura III is a 89 y.o. male presents with chief complaint of Follow-up (Nailcare) HPI: HPI B/L lower leg rash and Left lateral calf wound- all healed SUBJECTIVE: Diabetic/Routine Nail Care: Location: nails on bilateral feet. Severity of symptoms: mild numb/tingle. Onset:gradual. Status:no change. Context: hard to trim, hard to reach. NAILS-thickened, discolored, pain. Relieved by debridement, filing down nails, clipping nails. History of ulcers/wounds: no. PCP Dr. Sky Landon Date of Last visit 03/05/24 Aggravated by shoe gear, pressure Blood thinners Diabetes Last BS 80 NEPHEW present Unable to reach feet/ankles and do drsgs Edema mngmt difficult Review of Systems General: Chillsdenies. Feverdenies. Musculoskeletal: muscle weaknessdenies. Bone/joint symptomsdenies. Peripheral Vascular: Edemadenies. Hx of blood clots in legsdenies. Raynaud'sdenies. Rest pain denies. Ulceration of feetdenies. Varicose veinsdenies. Skin: Hyperpigmentationdenies. Nail changesdenies. Rashdenies. Skin lesion(s)denies. Neurologic: Gait abnormalitydenies. Tingling/Numbnessdenies. MEDICATIONS: Current Outpatient Medications Medication Instructions atorvastatin (LIPITOR) 20 mg, Oral, Nightly Eliquis 5 mg, 2 times daily Farxiga 5 mg, Daily furosemide (Lasix) 20 MG tablet HumaLOG KWIKPEN 100 UNIT/ML injection insulin glargine (LANTUS) 30 Units, 2 times daily isosorbide mononitrate ER (IMDUR) 30 mg, Oral, Daily RT losartan (COZAAR) 25 mg, Daily metoprolol tartrate (LOPRESSOR) 100 mg ALLERGIES: Allergies Allergen Reactions Niacin Rash REVIEW OF SYMPTOMS: Review of Systems OBJECTIVE: Visit Vitals Smoking Status Never Physical Exam General Examination: GENERAL APPEARANCE:alert, well hydrated, in no distress , awake, aware of surroundings . FOOT EXAM: Date of Last Foot Exam 04/17/24 Sensory testing performed: sensations diminished Dermatologic: SKIN FINDINGS:rt sub 1 mild callus/scar NAIL PATHOLOGY:digits 1-5 bilateral are intact. atrophic skin with neg digital hair and hyperpigmentation. ULCER: healed wounds. Multiple small eschar areas. Mod edema, neg homans Nail Pathology: Left Foot: 1 (great toe)Long, Thick, Crumbly, Deformed, Discolored, Brittle, Dystrophic 5mm. 2Long, Thick, Crumbly, Deformed, Discolored, Brittle, [id number]. 3Long, Thick, Crumbly, Discolored,Dystrophic 3mm 4Long, Thick, . 5Long, Thick, Crumbly, Deformed, Discolored, Brittle, [id number]. Nail Pathology: Right Foot: 1 (great toe)Long, Thick, Crumbly, Deformed, Discolored, Brittle, Dystrophic 5mm. 2Long, Thick, Crumbly, Deformed, Discolored, Brittle, [id number]. 3Long, Thick, Crumbly, Deformed, Discolored, Brittle, [id number] 4Long, Thick, Crumbly, Deformed, Discolored, Brittle, Dystrophic, 4mm 5Long, Thick, Crumbly, Deformed, Discolored, Brittle, [id number]. Orthopedic: DEFORMITIES: Bilateral digital deformities. MUSCLE STRENGTH 5/5 for all pedal groups tested. no Pain to leg or popl nodes. Modifier: -Q9, Parastesias. Vascular: EDEMA:mild , bilateral. palp pulses bilat and good color and refill digits. Neurologic: Vibratory sensation, sharp/dull and light touch are absent to the plantar foot bilateral. Loss of SWM 5.07 protective sensation to the plantar foot bilateral. ASSESSMENT AND PLAN: Assessment/Plan DM neuropathy stable, mycotic nails - stasis. Callus rt Nails: all thick and dystrophic nails debrided of all affected and loose material EDEMA MNGMT: Elevation support stockings and following prescribed medication for fluid management and reviewed in detail. Compression discussed with necessity Callus: all hyperkeratotic tissue debrided to all areas described above sharply with a #15 blade documented in this encounter Plan of Treatment Upcoming Encounters Date Type Department Care Team (Late st Contact Info) Description 12/20/2024 2:00 PM EST Procedure Visit [facility] [address] [place] [address] French Silver DPM [address] [place] [address] documented as of this encounter Visit Diagnoses Diagnosis Diabetic polyneuropathy associated with type 2 diabetes mellitus (HCC)- Primary Onychomycosis Dermatophytosis of nail Corns and callosities documented in this encounter Care Teams Scene Painter Relationship Specialty Start Date End Date Sky Landon MD [address] [place] [address] PCP - General Family Medicine 12/09/23 documented as of this encounter
--- OUTSIDE RECORDS SUMMARY | 2024-08-24 10:20 | XMS_ITS | Encounter Summary ---
Author Organization [facility] Address [address] [place] [address] Care Team Providers Care Photographers' Model Name Role Phone Sophia Rodriguez CELSO Primary Care Provider [phone] Reason for Referral * Imaging (Routine) - Pending Review Specialty Diagnoses / Procedures Referred By Farhat juarez Referred To Contact Cardiology Diagnoses Chronic systolic heart failure (CMS/HCC) PRASAD (dyspnea on exertion) Procedures Transthoracic echo (TTE) complete Angelo Reid CNP [address] [place] [address] Phone: tel: fax: Referral ID Status Reason Start Date Expiration Date Visits Requested Visits Authorized [id number] Pending Review Perform Procedure 08/24/2024 08/24/2025 1 1 Encounter Details Date Type Department Care Team (Late st Contact Info) Description 08/24/2024 10:20 AM EDT Office Visit [facility] [place] [address] [place] [address] Angelo Reid CNP [address] [place], [place] [id number] Chest pain on exertion (Primary Dx); Chronic systolic heart failure (CMS/HCC); Cardiomyopathy, ischemic; 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; Typical atrial flutter (CMS/HCC); Benign hypertensive heart disease with heart failure (CMS/HCC); Mixed hyperlipidemia; NSTEMI (non-ST elevated myocardial infarction) (CMS/HCC); Paroxysmal atrial fibrillation (CMS/HCC); Type 2 diabetes mellitus with other specified complication, unspecified whether assisted insulin use ([facility]); Ischemic cardiomyopathy; Coronary artery disease involving [place]etm[place] coronary artery of sleetmute heart with other form of angina pectoris; PRASAD (dyspnea on exertion) Social History Tobacco Use Types Packs/Day Years Used Date Smoking Tobacco: Never Smokeless Tobacco: Never Alcohol Use Standard Drinks/Week Comments Not Currently 0 (1 standard drink = 0.6 oz pur e alcohol) Humiliation, Afraid, Rape, and Kick questionnair e Answer Date Recorded Within the last year, have y ou been afraid of your partner or ex-partner? No 10/13/2022 Emotionally Abused Not on file 10/13/2022 Physically Abused Not on file 10/13/2022 Sexually Abused Not on file 10/13/2022 Overall Financial Resource Strain (CARDIA) Answe r Date Recorded How hard is it for you to pa y for the very basics like food, housing, medical care, and heating? Not hard at all 10/13/2022 [place] Safety & Environment Answer Date Rec orded Within the last year, have y ou been afraid of your partner or ex-partner? No 10/13/2022 Emotionally Abused Not on file 10/13/2022 Physically Abused Not on file 10/13/2022 Sexually Abused Not on file 10/13/2022 Physically or Sexually Abused Not on file Transportation Answer Date Recorded In the past 12 months, has l ack of transportation kept you from medical appointments or from getting medications? No 10/13/2022 Lack of Transportation (Non-Medical) Not on file 10/13/2022 Housing Stability Vital Sign Answer Constantin e Recorded Unable to Pay for Housing in the Last Year Not o n file 10/13/2022 Number of Places Lived in the Last Year Not on f ile 10/13/2022 In the last 12 months, was t here a time when you did not have a steady place to sleep or slept in a long-term (including now)? No 10/13/2022 Hunger Vital Sign Answer Date Recorded Within the past 12 months, y ou worried that your food would run out before you got the money to buy more. Never true 10/14/19 23 Ran Out of Food in the Last Year Not on file 10/13/2022 Sex and Gender Information Value Date Recorded Sex Assigned at Male 07/21/2022 9:36 AM EDT Legal Sex Male 12:38 AM EDT Gender Identity Male 07/21/2022 9:36 AM EDT Sexual Orientation Heterosexual or Straight 07/08 9:36 AM EDT documented as of this encounter Last Filed Vital Signs Vital Sign Reading Time Taken Comments Blood Pressure 134/70 08/24/2024 9:49 AM EDT Pulse 54 08/24/2024 9:49 AM EDT Temperature - - Respiratory Rate - - Oxygen Saturation 97% 08/24/2024 9:49 AM EDT Inhaled Oxygen Concentration - - Weight 108 kg (238 lb) 08/24/2024 9:49 AM EDT Height 185.4 cm (6' 1 ) 08/24/2024 9:49 AM EDT Body Mass Index 31.4 08/24/2024 9:49 AM EDT documented in this encounter Plan of Treatment Upcoming Encounters Date Type Department Care Team (Late st Contact Info) Description 11/19/2024 1:20 PM EDT Office Visit [facility] [address] [place] [id number] Angelo Reid, FARM FACILITY MANAGER [address] [place] [address] Scheduled Orders Name Type Priority Associated Diagnoses Orde r Schedule Lipid panel Lab Routine Mixed hyperlipidemia Expected: 08/24/2024 (Approximate), Expires: 08/24/2025 Comprehensive metabolic panel Lab Routine Chronic systolic heart failure (CMS/HCC) Expected: 08/24/2024 (Approximate), Expires: 08/24/2025 CBC and differential Lab Routine Chronic systolic heart failure (CMS/HCC) Expected: 08/24/2024 (Approximate), Expires: 08/24/2025 Hemoglobin A1c Lab Routine Chronic systolic heart failure (CMS/HCC) Type 2 diabetes mellitus with other specified complication, unspecified whether rodent exterminator insulin use (CMS/HCC) Expected: 08/24/2024 (Approximate), Expires: 08/24/2025 Transthoracic echo (TTE) complete Echocardiography Routine Chronic systolic heart failure (CMS/HCC) PRASAD (dyspnea on exertion) Expected: 08/24/2024 (Approximate), Expires: 08/24/2026 documented as of this encounter Visit Diagnoses Diagnosis Chest pain on exertion- Primary Unspecified chest pain Chronic systolic heart failure ([facility]/HCC) Chronic systolic heart failure Cardiomyopathy, ischemic Other specified forms of chronic ischemic heart disease Coronary artery disease involving sleetm[place] coronary artery of sleetmute heart with other form of angina pectoris Typical atrial flutter (CMS/HCC) Benign hypertensive heart disease with heart failure (CMS/HCC) Mixed hyperlipidemia NSTEMI (non-ST elevated myocardial infarction) ([facility]/HCC) Acute myocardial infarction, subendocardial infarction, episode of care unspecified Paroxysmal atrial fibrillation ([facility]/HCC) Atrial fibrillation Type 2 diabetes mellitus with other specified complication, unspecified whether rodent exterminator insulin use ([facility]) Ischemic cardiomyopathy Other specified forms of chronic ischemic heart disease PRASAD (dyspnea on exertion) Other dyspnea and respiratory abnormality documented in this encounter Care Teams Photographers' Model Relationship Specialty Start Date End Date Sophia Rodriguez FNP-C [address] [place] [address] PCP - General Nurse Practitioner 08/23/24 documented as of this encounter
--- OUTSIDE RECORDS SUMMARY | 2024-08-24 10:31 | XMS_ITS | Clinical Summary ---
Author Organization [facility] Address [id number] [place] [address] Care Team Providers Care Coater Carbon Paper Name Role Phone Sky Landon MD Primary Care Provider Allergies Active Allergy Reactions Criticality Noted Date Comments Niacin 10/30/2020 Cause sweating Medications amLODIPine (NORVASC) 5 mg tablet Take 1 tablet by mouth daily. 10/15/2020 Active ELIQUIS 5 mg tablet Take 1 tablet by mouth 2 (two) times a day. 10/15/2020 Active insulin aspart U-100 (NovoLOG) 100 unit/mL injection INJECT DIRECTED PER SLIDING SCALE BEFORE MEALS AND AT BEDTIME 08/24/2020 Active metoprolol tartrate (LOPRESSOR) 25 mg tablet Take 1 tablet by mouth 2 (two) times a day. 10/15/2020 Active potassium chloride (KLOR-CON M) 20 MEQ CR tablet Take 1 tablet by mouth 2 (two) times a day. 10/15/2020 Active valsartan (DIOVAN) 80 mg tablet Take 1 tablet by mouth daily. 10/15/2020 Active ascorbic acid, vitamin C, (VITAMIN C) 250 mg tablet Take 250 mg by mouth 2 (two) times a day. 10/16/2020 Active HumaLOG KwikPen Insulin 100 unit/mL insulin pen Sliding Scale 10/18/2020 Active BD ULTRA-FINE MAIDA PEN NEEDLE 32 gauge x 5/32 needle 2 (two) times a day. 10/18/2020 Active zinc gluconate 50 mg tablet Take 50 mg by mouth daily. 10/16/2020 Active ciprofloxacin, mixture, (CIPRO XR) 500 mg 24 hr tablet Take 500 mg by mouth daily. Pt states he has one pill left. Active clopidogreL (PLAVIX) 75 mg tablet Take 1 tablet (75 mg total) by mouth daily. 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 11/06/2020 Overview (11/06/2020): Added automatically from request for surgery [id number] PAD (peripheral artery disease) 11/06/2020 Overview (11/06/2020): Added automatically from request for surgery [id number] Social History Tobacco Use Types Packs/Day Years Used Date Smoking Tobacco: Never Smokeless Tobacco: Never Alcohol Use Standard Drinks/Week Comments Defer 0 (1 standard drink = 0.6 oz pur e alcohol) Sex and Gender Information Value Date Recorded Sex Assigned at Not on file Legal Sex Male 12:21 PM EDT Gender Identity Not on file Sexual Orientation Not on file Last Filed Vital Signs Vital Sign Reading Time Taken Comments Blood Pressure 115/58 05/21/2021 3:06 PM EDT Pulse 85 05/21/2021 3:06 PM EDT Temperature - - Respiratory Rate 20 11/17/2020 4:30 PM EDT Oxygen Saturation 98% 05/21/2021 3:06 PM EDT Inhaled Oxygen Concentration - - Weight 104.3 kg (230 lb) 05/21/2021 3:06 PM EDT Height 185.4 cm (6' 1 ) 05/21/2021 3:06 PM EDT Body Mass Index 30.34 05/21/2021 3:06 PM EDT Plan of Treatment Health Maintenance Due Date Last Done Comments Depression Screening 1947 Tobacco Screening 1947 Zoster (Shingles) Vaccine (1 of 2) 04/14/1987 Fall Risk Screening 2002 COVID-19 Vaccine (2023-2 5 season) 2023 01/04/2022, 12/08/2020, 06/04/2020, Additional history exists Influenza Vaccine 10/08/2024 DTaP,Tdap and Td Vaccines (2 - Tdap) 08/15/2030 08/15/2020 Medical Devices Not on file Insurance [facility] MEDIC[employer] Care Teams Coater Carbon Paper Relationship Specialty Start Date End Date Syk Landon MD [address] [place] [address] PCP - General Family Medicine 11/17/20
--- OUTSIDE RECORDS SUMMARY | 2024-08-24 10:31 | XMS_ITS | Encounter Summary ---
Author Organization [employer] [facility] [employer] Address [id number] [place] [address] Care Team Providers Care It Architect Name Role Phone Sky Landon MD Primary Care Provider [phone] Encounter Details Date Type Department Care Team (Late st Contact Info) Description 02/24/2021 Orders Only [facility] [address] [place] [phone] Ref Prov, [place] [address] Social History Tobacco Use Types Packs/Day Years Used Date Smoking Tobacco: Never Smokeless Tobacco: Never Alcohol Use Standard Drinks/Week Comments Defer 0 (1 standard drink = 0.6 oz pur e alcohol) Sex and Gender Information Value Date Recorded Sex Assigned at Not on file Legal Sex Male 12:21 PM EDT Gender Identity Not on file Sexual Orientation Not on file COVID-19 Exposure Response Date Recorded In the last month, have you been in contact with someone who was confirmed or suspected to have Coronavirus / COVID-19? No / Unsure 02/19/2021 9:50 AM EST documented as of this encounter Plan of Treatment Not on file documented as of this encounter Visit Diagnoses Not on filedocumented in this encounter Care Teams It Architect Relationship Specialty Start Date End Date Sky Landon MD [address] [place] [address] PCP - General Family Medicine 11/17/20 documented as of this encounter
--- OUTSIDE RECORDS SUMMARY | 2024-08-24 10:31 | XMS_ITS | Encounter Summary ---
Author Organization [facility] Address [address] [place] [address] Care Team Providers Care Carbide Powder Processor Name Role Phone Sky Landon MD Primary Care Provider [phone] Sophia Rodriguez-Raymon Primary Care Provider [phone] Reason for Visit * Reason Comments Med Refill Encounter Details Date Type Department Care Team (Late st Contact Info) Description 09/03/2022 Refill [facility] [address] [place] [address] Odell Cardenas MD [address] [place] [address] Social History Tobacco Use Types Packs/Day Years [...] AM EDT documented as of this encounter Plan of Treatment Upcoming Encounters Date Type Department Care Team (Late st Contact Info) Description 11/19/2024 1:20 PM EDT Office Visit [facility] [address] [place] [address] Angelo Reid, TELLER SUPERVISOR [address] [place] [address] documented as of this encounter Visit Diagnoses Not on filedocumented in this encounter Care Teams Carbide Powder Processor Relationship Specialty Start Date End Date Sky Landon MD [address] [place] [address] PCP - General Family Medicine 07/13/22 08/22/24 Sophia Rodriguez FNP-C [address] [place] [address] PCP - General Nurse Practitioner 08/23/24 documented as of this encounter
--- OUTSIDE RECORDS SUMMARY | 2024-08-24 10:31 | XMS_ITS | Encounter Summary ---
Author Organization [facility] Address [address] [place] [address] Care Team Providers Care Manager Freelance Name Role Phone Sky Landon MD Primary Care Provider [phone] Sky Landon MD Primary Care Provider [phone] Reason for Visit * Reason Comments Med Refill Encounter Details Date Type Department Care Team (Late Contact Info) Description 01/12/2023 Refill [facility] [address] [place] [address] Arya Maddox DO [address] [place] [address] Social History Tobacco Use Types Packs/Day Years [...] on file documented as of this encounter Miscellaneous Notes * Telephone Encounter - Arya Maddox DO - 01/12/2023 5:41 PM EST Shouldn't be taking documented in this encounter Plan of Treatment Upcoming Encounters Date Type Department Care Team (Late Contact Info) Description 12/20/2024 2:00 PM EST Procedure Visit [facility] [address] [place] [address] French Silver, DPM [address] [place] [address] documented as of this encounter Visit Diagnoses Not on filedocumented in this encounter Care Teams Manager Freelance Relationship Specialty Start Date End Date Sky Landon MD PCP - General Family Medicine 11/04/22 12/08/23 Sky Landon MD [address] [place] [address] PCP - General Family Medicine 12/09/23 documented as of this encounter
--- OUTSIDE RECORDS SUMMARY | 2024-08-24 10:31 | XMS_ITS | Encounter Summary ---
Author Organization [facility] [employer] [facility] [employer] [facility] Address [id number] [address] [place] [address] Care Team Providers Care Taffy Candy Maker Name Role Phone Sky Landon MD Primary Care Provider [phone] Encounter Details Date Type Department Care Team (Late st Contact Info) Description 01/16/2021 Orders Only [facility] [address] [place] [address] Ref Prov, [place] [address] Social History Tobacco Use Types Packs/Day Years [...] have Coronavirus / COVID-19? No / Unsure 01/15/2021 9:55 AM EST documented as of this encounter Plan of Treatment Not on file documented as of this encounter Procedures Procedure Name Priority Date/Time Associated Diagnosis Comments VASC ARTERIAL DOPPLER LOWER BILATERAL MULTI LEVEL/PVR Routine 01/14/2021 documented in this encounter Results * Vas art doppler lwr bilat mult lev/PVR (01/14/2021) Anatomical Region Laterality Modality Vascular Bilateral Ultrasound us Not In System Ref Prov CV VASCULAR ORDERABLES Fi nal Result documented in this encounter Visit Diagnoses Not on filedocumented in this encounter Care Teams Taffy Candy Maker Relationship Specialty Start Date End Date Sky Landon MD [address] [place] [address] PCP - General Family Medicine 11/17/20 documented as of this encounter
--- OUTSIDE RECORDS SUMMARY | 2024-08-24 10:31 | XMS_ITS | Clinical Summary ---
Author Organization [facility] Address [address] [place] [address] Care Team Providers Care Ordnance Truck Installation Supervisor Name Role Phone Sky Landon MD Primary Care Provider [phone] Allergies Active Allergy Reactions Criticality Noted Date Comments Niacin Rash Low 11/02/2022 Medications isosorbide mononitrate ER (Imdur) 30 MG 24 hr tablet Take 30 mg by mouth in the morning. 07/22/2022 Active Eliquis 5 MG tablet Take 5 mg by mouth in the morning and 5 mg before bedtime. Active atorvastatin (Lipitor) 20 MG tablet Take 20 mg by mouth at bedtime. 10/21/2022 Active HumaLOG KWIKPEN 100 UNIT/ML injection 08/09/2022 Active Farxiga 5 MG Take 5 mg by mouth Daily 05/03/2023 Active furosemide (Lasix) 20 MG tablet 06/23/2023 Active losartan (Cozaar) 25 MG tablet Take 25 mg by mouth Daily 08/17/2023 Active insulin glargine (Lantus) 100 UNIT/ML injection Inject 30 Units under the skin in the morning and 30 Units before bedtime. Active metoprolol tartrate (Lopressor) 50 MG tablet Take 100 mg by mouth 04/20/2023 Active Active Problems Problem Noted Date Diagnosed Date Chronic combined systolic and diastolic heart fa ilure 08/18/2023 Overview (08/18/2023): added per 04/29/2023 query response. terminal gauger current use of insulin 08/18/2023 Overview (08/18/2023): Current Medication List includes Lantus and Humalog. added per [facility] policy. Current Medication List includes Lantus and Humalog. added per OP [facility] policy. Peripheral vascular disease 08/18/2023 Stage 3a chronic kidney disease (CKD) 08/18/2023 Type 2 diabetes mellitus treated with insulin Overview (08/18/2023): linked DM with CKD per [facility] policy. linked DM with CKD per [facility] policy. 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 11/06/2020 Overview (11/04/2022): Added automatically from request for surgery [id number] Encounters Date Type Department Care Team Description 08/16/2024 1:15 PM EDT Procedure Visit [facility] [address] [place] [address] French Silver DPM Diabetic polyneuropathy associated with type 2 diabetes mellitus (HCC) (Primary Dx); Onychomycosis; Corns and callosities 08/16/2024 Bamboo flowsheet [facility] [address] [place] [address] French Silver DPM 08/16/2024 Travel from Last 3 Months Family History Medical History Relation Name Comments Heart disease Father Stroke Father htn Father Diabetes Maternal Grandfather Diabetes Maternal Grandmother Diabetes Mother Heart disease Paternal Grandfather Relation Name Status Comments Father Maternal Grandfather Maternal Grandmother Mother Paternal Grandfather Social History Tobacco Use Types Packs/Day Years Used Date Smoking Tobacco: Never Smokeless Tobacco: Never Tobacco Cessation:Counseling Given: Not Answered Alcohol Use Standard Drinks/Week Comments Never 0 [...] PM EDT Temperature - - Respiratory Rate 18 04/17/2024 1:07 PM EDT Oxygen Saturation - - Inhaled Oxygen Concentration - - Weight 102 kg (224 lb) 08/16/2024 12:53 PM EDT Height 185.4 cm (6' 1 ) 08/16/2024 12:53 PM EDT Body Mass Index 29.55 08/16/2024 12:53 PM EDT Plan of Treatment Upcoming Encounters Date Type Department Care Team (Late st Contact Info) Description 12/20/2024 2:00 PM EST Procedure Visit [facility] [address] [place] [address] French Silver, DPIrene [address] [place] [address] Health Maintenance Due Date Last Done Comments Influenza Vaccine (#1) 2024 Pneumococcal Vaccine: 65+ Years Completed 2, 10/17/2012 Insurance MEDICARE [facility] Care Teams Ordnance Truck Installation Supervisor Relationship Specialty Start Date End Date Sky Landon MD [address] [place] [address] PCP - General Family Medicine 12/09/23
--- OUTSIDE RECORDS SUMMARY | 2024-08-24 10:31 | XMS_ITS | Clinical Summary ---
Author Organization [facility] Address [address] [place] [address] Care Team Providers Care Rn Provider Relations Name Role Phone Sophia Rodriguez HOME ECONOMICS EXPERT-C Primary Care Provider [phone] Allergies Active Allergy Reactions Criticality Noted Date Comments Multivitamin Unknown 06/29/2022 Niacin 10/30/2020 Cause sweating Medications insulin glargine (Lantus) 100 unit/mL (3 mL) pen INJECT 28 UNITS TWICE DAILY, MAY BE ADJUSTED UP TO 30 UNITS 02/04/20 21 Active insulin lispro (HumaLOG) 100 unit/mL injection PLEASE SEE ATTACHED FOR DETAILED DIRECTIONS 10/19/19 21 Active dapagliflozin propanediol (Farxiga) 5 mgIndications:h eart failure,type 2 diabetes mellitus Take 1 tablet (5 mg) by mouth once daily as directed for 360 doses. 90 tablet 3 06/02/19 24 Active Additional Information Patient not taking.Reported on 08/24/2024 metoprolol tartrate (Lopressor) 100 mg tabletIndicatio ns:Paroxysmal atrial fibrillation (CMS/HCC) Take 1 tablet (100 mg) by mouth in the morning and at bedtime. 180 tablet 3 08/17/19 24 Active furosemide (Lasix) 20 mg tabletIndicatio ns:Chronic systolic heart failure (CMS/HCC) TAKE 1 TAB BY MOUTH IF NEEDED EACH DAY FOR WEIGHT GAIN OF 2-3 LBS IN A DAY OR 5 LBS IN A WEEK,LEG SWELLING,INCRE ASED SHORTNESS OF BREATH 30 tablet 11 06/29/19 25 Active atorvastatin (Lipitor) 20 mg tabletIndicatio ns:NSTEMI (non-ST elevated myocardial infarction) (CMS/HCC) TAKE 1 TABLET BY MOUTH AT BEDTIME 90 tablet 3 07/28/19 25 Active losartan (Cozaar) 25 mg tabletIndicatio ns:Chronic systolic heart failure (CMS/HCC),Cardi omyopathy, ischemic,Allen ry artery disease of barrow artery of barrow heart with stable angina pectoris Take 1 tablet (25 mg) by mouth once daily as directed. 90 tablet 08/25/192025 Active apixaban (Eliquis) 5 mg tabletIndicatio ns:Paroxysmal atrial fibrillation (CMS/HCC) Take 1 tablet (5 mg) by mouth in the morning and at bedtime. 180 tablet 3 08/25/192025 Active isosorbide mononitrate ER (Imdur) 60 mg 24 hr tabletIndicatio ns:Ischemic cardiomyopathy, Coronary artery disease involving barrow coronary artery of barrow heart with other form of angina pectoris Take 1 tablet (60 mg) by mouth in the morning. Do not crush or chew. 90 tablet 08/25/192025 Active metoprolol tartrate (Lopressor) 50 mg tabletIndicatio ns:Typical atrial flutter (CMS/HCC) Take 1 tablet (50 mg) by mouth two times daily. 180 tablet 08/25/192025 Active atorvastatin (Lipitor) 20 mg tabletIndicatio ns:NSTEMI (non-ST elevated myocardial infarction) (CMS/HCC) Take 1 tablet (20 mg) by mouth at bedtime. 90 tablet 3 06/02/19 24 2024 Discontinued apixaban (Eliquis) 5 mg tabletIndicatio ns:Paroxysmal atrial fibrillation (CMS/HCC) Take 1 tablet (5 mg) by mouth in the morning and at bedtime. 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 90 tablet 3 08/17/192024 Discontinued(R eorder) isosorbide mononitrate ER (Imdur) 30 mg 24 hr tabletIndicatio ns:Ischemic cardiomyopathy, Coronary artery disease involving barrow coronary artery of barrow heart with other form of angina pectoris Take 1 tablet (30 mg) by mouth in the morning. Do not crush or chew. 90 tablet 3 09/20/19 24 2024 Discontinued(R eorder) Active Problems Problem Noted Date Diagnosed Date Nonsmoker 08/24/2024 BMI 33.0-33.9,adult 08/24/2024 Obesity (BMI 30-39.9) 08/24/2024 Scaly skin 08/24/2024 Hospital discharge follow-up 09/20/2023 Weakness generalized 09/20/2023 Chronic combined systolic and diastolic heart fa ilure 08/18/2023 Overview (09/20/2023): added per 04/29/2023 query response. added per 04/29/2023 query response. [facility] current use of insulin 08/18/2023 Overview (09/20/2023): Current Medication List includes Lantus and Humalog. added per [facility] policy. Current Medication List includes Lantus and Humalog. added per [facility] policy. Current Medication List includes Lantus and Humalog. added per [facility] policy. Current Medication List includes Lantus and Humalog. added per [facility] policy. Stage 3a chronic kidney disease (CKD) 08/18/2023 Type 2 diabetes mellitus treated with insulin Overview (08/24/2024): linked DM with HLD per [facility] policy. 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 07/21/2022 Frequent falls 07/21/2022 Mixed hyperlipidemia 04/24/2022 PRASAD (dyspnea on exertion) 02/09/2022 Assessment & Plan (02/14/2022 3:09 PM EST): -this has worsened compared to his last visit he states -could be worsening diastolic dysfunction vs wosening a-flutter -will need ECHO to assess for HF -will order lexiscan for the new onset chest pain/pressure with exertion Chest pain on exertion 02/09/2022 Assessment & Plan (02/14/2022 3:12 PM EST): -this is new, could be related to being in a-flutter more frequently than prior visit -will order lexiscan to better assess for ischemia Skin ulcer, limited to breakdown of skin 022 Ischemic ulcer with fat layer exposed 05/21/2021 Diabetes mellitus 12/22/2020 Primary hypertension 12/22/2020 Assessment & Plan (02/14/2022 3:09 PM EST): Hypertension is controlled -continue valsartan, metoprolol Atrial flutter 12/22/2020 Assessment & Plan (02/14/2022 3:13 PM EST): -appears typical a-flutter -no longer apparent to being paroxysmal -will have him follow up within 1-[address] Dr[address] Saldana possible ablation -[id number]: 4 (age, htn, dm, chf), continue eliquis -will increase metoprolol tartrate to 50mg BID for better rate control PAD (peripheral artery disease) 11/06/2020 Overview (02/05/2022): Added automatically from request for surgery [id number] Resolved Problems Problem Noted Date Diagnosed Date Resolved Date Cardiomyopathy 07/15/2022 06/02/2023 Overview (07/15/2022): Added automatically from request for surgery [id number] Encounters Date Type Department Care Team Description 08/24/2024 10:20 AM EDT Office Visit [address] [address] Angelo Reid CNP Chest pain on exertion (Primary Dx); Chronic systolic heart failure (CMS/HCC); Cardiomyopathy, ischemic; 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; Typical atrial flutter (CMS/HCC); Benign hypertensive heart disease with heart failure ([facility]/HCC); Mixed hyperlipidemia; NSTEMI (non-ST elevated myocardial infarction) ([facility]/HCC); Paroxysmal atrial fibrillation ([facility]/HCC); Type 2 diabetes mellitus with other specified complication, unspecified whether nursing home insulin use ([facility]); Ischemic cardiomyopathy; Coronary artery disease involving barrow coronary artery of barrow heart with other form of angina pectoris; PRASAD (dyspnea on exertion) 07/27/[address] [address] Obdulia Mo MA 07/26/2024 Refill [facility] [address] [place] [address] Yany Gu CNP NSTEMI (non-ST elevated myocardial infarction) (CMS/HCC) (Primary Dx) 06/28/[address] [address] Yany Gu CNP Chronic systolic heart failure (CMS/HCC) from Last 3 Months Family History Medical History Relation Name Comments coronary artery bypass graft Father Heart failure Sister Relation Name Status Comments Father Sister Social History Tobacco Use Types Packs/Day Years Used Date Smoking Tobacco: Never Smokeless Tobacco: Never Tobacco Cessation:Counseling Given: Not Answered Alcohol Use Standard Drinks/Week Comments Not Currently [...] place to sleep or slept in a detention (including now)? No 10/13/2022 Hunger Vital Sign [...] Heterosexual or Straight 07/08 9:36 AM EDT Last Filed Vital Signs Vital Sign Reading Time Taken Comments Blood Pressure 134/70 08/24/2024 9:49 AM EDT Pulse 54 08/24/2024 9:49 AM EDT Temperature 36.3 C (97.3 F) 10/19/2022 8:00 AM EDT Respiratory Rate 10 10/19/2022 8:00 AM EDT Oxygen Saturation 97% 08/24/2024 9:49 AM EDT Inhaled Oxygen Concentration - - Weight 108 kg (238 lb) 08/24/2024 9:49 AM EDT Height 185.4 cm (6' 1 ) 08/24/2024 9:49 AM EDT Body Mass Index 31.4 08/24/2024 9:49 AM EDT Plan of Treatment Upcoming Encounters Date Type Department Care Team (Late st Contact Info) Description 11/19/2024 1:20 PM EDT Office Visit [facility] [address] [place] [address] Angelo Reid, SOLUTION DESIGNER [address] [place] [address] Health Maintenance Due Date Last Done Comments Medicare Annual Wellness (AWV) 1935 Diabetes: Retinopathy Screening 04/14/1947 Depression Screening 1949 Diabetes: Urine Protein Screening 1956 Adult Tetanus 04/14/1959 Zoster Vaccines (1 of 2) 04/14/1987 Fall Risk Screening 2002 Diabetes: Hemoglobin A1C 01/13/2023 10/14/2022 COVID-19 Vaccine ( season) 2024 02/06/2024, 01/20/2023, 01/04/2022, Additional history exists Influenza Vaccine (#1) 2024 Pneumococcal Vaccine: 50+ Years Completed 01/04/2022 HIB Vaccines Aged Out No longer eligi ble based on patient's age to complete this topic HPV Vaccines Aged Out No longer eligi ble based on patient's age to complete this topic IPV Vaccines Aged Out No longer eligi ble based on patient's age to complete this topic Meningococcal B Vaccine Aged Out No l onger eligible based on patient's age to complete this topic Meningococcal Vaccine Aged Out No deborah ce eligible based on patient's age to complete this topic Rotavirus Vaccines Aged Out No longer eligible based on patient's age to complete this topic Medical Devices Implanted Type Area Remelt Sugar Boiler Device Identifier Shelf Expiration Date Model / Serial / Lot Stent,Avelino Mr 2.75 X 16 - [id number] Implanted:Qty: 1 on 10/18/2022 by Juan Coon MD at [facility] Drug Eluting Stent [employer] [id number] 03/16/2024 [id number] / / [id number] Stent,Avelino Xd Mr 2.5 X48mm - [id number] Implanted:Qty: 1 on 10/18/2022 by Juan Coon MD at [facility] Drug Eluting Stent [employer] [id number] 12/08/2023 [id number] / / [id number] Procedures Procedure Name Priority Date/Time Associated Diagnosis Comments HEMOGLOBIN A1C Add-On 10/14/2022 11:43 AM EDT from Last 3 Months or Most Recently Relevant to Health Maintenance Results * (ABNORMAL) Hemoglobin A1c (10/14/2022 11:43 AM EDT) Hemoglobin A1C 7.4(H) 4.0 - 6.0 % 10/14/2022 2:56 PM EDT [facility] ([place]) Estimated Average Glucose 166 mg/dL 10/14/2022 2:56 PM EDT [facility] ([facility]) Blood Venous blood specimen / Unknown Arterial Line / Unknown 10/14/2022 11:43 AM EDT 10/14/2022 12:27 PM EDT us Sunday Svaage MD LAB BLOOD ORDERABLES Final Resul t [facility] ([facility]) [address] [place], [place] [id number] from Last 3 Months or Most Recently Relevant to Health Maintenance Insurance MEDICARE AAR Advance Directives * Full Code (Latest Code Status on File) Date Activated Date Inactivated Comments 10/13/2022 10:58 PM 10/19/2022 3:15 PM Care Teams Rn Provider Relations Relationship Specialty Start Date End Date Sophia Rodriguez FNP-C [address] [place] [address] PCP - General Nurse Practitioner 08/23/24
--- OUTSIDE RECORDS SUMMARY | 2024-08-24 10:31 | XMS_ITS | Encounter Summary ---
Author Organization [facility] Address [address] [place] [address] Care Team Providers Care Global Account Manager Name Role Phone Sky Landon MD Primary Care Provider [phone] Encounter Details Date Type Department Care Team (Latest Contact Info) Description 08/16/2024 Travel Social History Tobacco Use Types Packs/Day Years [...] on file documented as of this encounter Plan of Treatment Upcoming Encounters Date Type Department Care Team (Late st Contact Info) Description 12/20/2024 2:00 PM EST Procedure Visit [facility] [address] [place] [phone] French Silver DPIrene [address] [place] [address] documented as of this encounter Visit Diagnoses Not on filedocumented in this encounter Care Teams Global Account Manager Relationship Specialty Start Date End Date Sky Landon MD [address] [place] [address] PCP - General Family Medicine 12/09/23 documented as of this encounter
--- OUTSIDE RECORDS SUMMARY | 2024-08-24 10:31 | XMS_ITS | Encounter Summary ---
Author Organization [facility] Address [address] [place] [address] Care Team Providers Care Fabrication Department Supervisor Name Role Phone Sky Landon MD Primary Care Provider [phone] Encounter Details Date Type Department Care Team ([facility] Contact Info) Description 08/16/2024 Bamboo flowsheet [facility] [address] [place] [address] French Silver DPM [address] [id number] Social History Tobacco Use Types Packs/Day Years [...] Procedure Visit [facility] [address] [place] [phone] French Silver DPM [address] [place] [address] documented as of this encounter Visit Diagnoses Not on filedocumented in this encounter Care Teams Fabrication Department Supervisor Relationship Specialty Start Date End Date Sky Landon MD [address] [place] [address] PCP - General Family Medicine 12/09/23 documented as of this encounter
--- OUTSIDE RECORDS SUMMARY | 2024-08-24 10:31 | XMS_ITS | Encounter Summary ---
Author Organization [facility] Address [address] [place] [address] Care Team Providers Care Value Stream Leader Name Role Phone Sky Landon MD Primary Care Provider [phone] Sophia RodriguezP-Raymon Primary Care Provider [phone] Reason for Visit * Reason Comments Med Refill Encounter Details Date Type Department Care Team (Late st Contact Info) Description 01/12/2023 Refill [facility] [address] [place] [address] [facility] [place] [address] Social History Tobacco Use Types Packs/Day Years [...] and heating? Not hard at all 10/13/2022 [place] Safety & Environment Answer Date Rec orded [...] place to sleep or slept in a fci (including now)? No 10/13/2022 Hunger Vital Sign [...] Description 11/19/2024 1:20 PM EDT Office Visit [facility] ([place], [place]) [address] [place] [address] Angelo Reid, FINANCIAL OPERATIONS ANALYST [address] [place] [address] documented as of this encounter Visit Diagnoses Not on filedocumented in this encounter Care Teams Value Stream Leader Relationship Specialty Start Date End Date Sky Landon MD [address] [place] [id number] PCP - General Family Medicine 07/13/22 08/22/24 Sophia Rodriguez FNP-C [address] [place] [address] PCP - General Nurse Practitioner 08/23/24 documented as of this encounter
--- OUTSIDE RECORDS SUMMARY | 2024-08-24 10:31 | XMS_ITS | Encounter Summary ---
Author Organization [facility] Address [address] [place] [address] Care Team Providers Care Tow Operator Name Role Phone Sky Landon MD Primary Care Provider [phone] Sophia Rodriguez-Raymon Primary Care Provider [phone] Reason for Visit * Reason Comments Med Refill Encounter Details Date Type Department Care Team (Late st Contact Info) Description 08/04/[address] [address] Odell Cardenas MD [address] [place] [address] Unspecified atrial flutter (CMS/HCC) Social History Tobacco Use Types Packs/Day Years [...] Heterosexual or Straight 07/08 9:36 AM EDT COVID-19 Exposure Response Date Recorded In the last 10 days, have yo u been in contact with someone who was confirmed or suspected to have Coronavirus/COVID-19? No / Unsure 07/27/2022 2:28 PM EDT documented as of this encounter Plan of Treatment Upcoming Encounters Date Type Department Care Team (Late st Contact Info) Description 11/19/2024 1:20 PM EDT Office Visit [facility] [address] [place] [address] Angelo Reid, AROMATHERAPIST [address] [place] [address] documented as of this encounter Visit Diagnoses Diagnosis Unspecified atrial flutter (CMS/HCC) documented in this encounter Care Teams Tow Operator Relationship Specialty Start Date End Date Sky Landon MD [address] [place] [id number] PCP - General Family Medicine 07/13/22 08/22/24 Sophia Rodriguez FNP-Raymon [address] [place] [address] PCP - General Nurse Practitioner 08/23/24 documented as of this encounter
--- OUTSIDE RECORDS SUMMARY | 2024-08-24 10:37 | XMS_ITS | CCD ---
Author Organization [facility] CliniSywa Care Team Providers Care Athletic Gear Custodian Name Role Phone DOMINGO MEDRANO Primary Care Physician Gilson Salgado Primary Care Physician [phone] DR YASEMIN ALBRIGHT Attending Unavailable MEDRANO ., DR DOMINGO Tran Primary Care Unavailable NATALEE, DR HAZEL Admitting Unavailable TARA CARDENAS Attending Unavailable TARA CARDENAS Admitting Unavailable MEDRANO ., DR DOMINGO Tran Primary Care Unavailable CRICKET TIERNEY Attending Unavailable CRICKET TIERNEY Admitting Unavailable MEDRANO ., DR DOMINGO Tran Primary Care Unavailable CRICKET TIERNEY Consulting Unavailable CRICKET TIERNEY Attending Unavailable CRICKET TIERNEY Admitting Unavailable MEDRANO ., DR DOMINGO Tran Primary Care Unavailable CRICKET TIERNEY Consulting Unavailable DOM, PETER Franny Admitting Unavailable DOM, RAPHAEL Blanton Attending Unavailable REQUEST, NONE LISTED Primary Care Unavaila ble HIGHLANDER, PETER D Admitting Unavailable HIGHLANDER, PETER Franny Attending Unavailable REQUEST, NONE LISTED Primary Care Unavaila ble STEPHANEANDER, PETER D Admitting Unavailable HIGHLANDER, RAPHAEL Blanton Attending Unavailable REQUEST, NONE LISTED Primary Care Unavaila ble DOM, PETER D Admitting Unavailable HIGHLANDER, PETER Franny Attending Unavailable REQUEST, NONE LISTED Primary Care Unavaila ble HIGHLANDER, PETER D Attending Unavailable REQUEST, NONE LISTED Primary Care Unavaila ble HIGHLANDER, PETER D Admitting Unavailable HIGHLANDER, PETER D Admitting Unavailable HIGHLANDER, PETER Franny Attending Unavailable REQUEST, NONE LISTED Primary Care Unavaila TARA Andrew Attending Unavailable TARA CARDENAS Admitting Unavailable MEDRANO ., DR DOMINGO Tran Primary Care Unavailable CELIO SINGLETARY Consulting Unavailable CELIO SINGLETARY Attending Unavailable GILSON SALGADO Primary Care Unavailable CELIO SINGLETARY Admitting Unavailable TARA CARDENAS Consulting Unavailable TARA CARDENAS Attending Unavailable TARA CARDENAS Admitting Unavailable MEDRANO ., DR DOMINGO Tran Primary Care Unavailable REQUEST, DR RODRIGUEZ LISTED Primary Care Unavaila valdo MEDRANO ., DR DOMINGO Tran Consulting Unavailable MITCHELL ., DR DOMINGO Tran Attending Unavailable MITCHELL ., DR DOMINGO Tran Admitting Unavailable DAGOBERTO GU Attending Unavailable OSCAR, MERCEDES Referring Unavailable HORANI, MERCEDES Referring Unavailable SLIME, WILBUR Referring Unavailable DAGOBERTO GU Attending Unavailable CELIO SINGLETARY Attending Unavailable TARA CARDENAS Attending Unavailable RADHA CRAWFORD Referring Unavailable MARC, CYN Admitting Unavailable HORMERCEDES MCINTYRE Attending Unavailable CELIO SINGLETARY Attending Unavailable Gilson Salgado MD Primary Care Provider Gilson Salgado Attending Unavailable Gilson Salgado Admitting Unavailable Gilson Salgado Attending Unavailable GIRISH BECKER Attending Unavailable Gilson Salgado Attending Unavailable Gilson Salgado Attending Unavailable Gilson Salgado Attending Unavailable Gilson Salgado Attending Unavailable Gilson Salgado Attending Unavailable Gilson Salgado Admitting Unavailable Gilson Salgado Attending Unavailable MD Gilson Salgado Admitting Unavailable MD Gilson Salgado Attending Unavailable GIRISH BECKER Attending Unavailable Gilson Salgado Attending Unavailable Gilson Salgado Attending Unavailable GIRISH BECKER Attending Unavailable Gilson Salgado Attending Unavailable Gilson Salgado Admitting Unavailable Gilson Salgado Attending Unavailable PATRICK SILVER Attending UnavailPATRICK Wetzel Attending UnavailPATRICK Wetzel Attending Unavailstephanie tran Allergies Allergy Classification Reported Allergen(s) Allergy Type Date of Onset Reaction(s) Facility (5 sources) Ascorbic Acid / Cholecalciferol / Vitamin A; Translations: [multivitamin] Drug Allergy Unknown (qualifier value) [facility] (9 sources) Niacin; Translations: [niacin] Drug Allergy 1 Unknown (qualifier value) [facility] (2 sources) Niacin Drug Allergy 3 [facility] (1 source) Multivitamin preparation; Translations: [MULTIVITAMIN] Drug Allergy 3 [facility] Repository (4 sources) Niacin Drug Allergy 3 Rash [facility] Medications Current Medications Medication Drug Class(es) Dates Sig (Normalized) Sig (Original) apixaban 5 mg oral tablet (9 sources) Factor Xa Inhibitor Start: 04-19-2022 take 1 tablet by mouth twice daily Eliquis 5 mg oral tablet 5 mg = 1 tab(s), Oral, BID, # 180 tab(s), Refills(s) 1, Pharmacy: [facility]/pharmacy #[id number], 182, cm, 06/04/24 12:51:00 EDT, Height/Length Dosing, 110, kg, 06/04/24 12:51:00 EDT, Weight Dosing Start Date: 06/04/24 Status: Ordered Quantity: 180.0 Unit: tab(s) Repeat number: 2 ascorbic acid 250 mg oral tablet (1 [...] Status: Ordered atorvastatin 20 mg oral tablet (9 sources) HMG-CoA Reductase Inhibitor Start: 10-21-2022 take 1 tablet by mouth at bedtime atorvastatin (Lipitor) 20 MG tablet Take 20 mg by mouth at bedtime. 10/21/2022 Active Start: 04-24-2022 take 1 tablet by ryland th at bedtime atorvastatin 40 mg Tab 40 mg = 1 tab(s), Oral, Bedtime, Refills(s) 0 Start Date: 04/24/22 Status: Ordered dapagliflozin 5 mg oral tablet (5 sources) Sodium-Glucose Cotransporter 2 Inhibitor Start: 05-02-2023 take 5 mg by mouth once daily Farxiga 5 MG Take 5 mg by mouth Daily 05/03/2023 Active Folinic Acid-Vit B6-Vit B12 (Folinic-Plus) 4-50-2 MG tablet (2 sources) Start: 02-03-2023 End: 02-03-2024 Folinic Acid-Vit B6-Vit B12 (Folinic-Plus) 4-50-2 MG tablet Indications: Diabetic polyneuropathy associated with type 2 diabetes mellitus (CMS/HCC) Take 1 capsule by mouth in the morning. 30 tablet 11 02/03/2023 02/03/2024 Active furosemide 20 mg oral tablet (6 sources) Loop Diuretic Start: 06-23-2023 furosemide (Lasix) 20 MG tablet 06/23/2023 Active Handicap Placard (5 sources) Start: 04-23-2022 Handicap Placard Handicap Placard, See Instructions, 1 EA, 0, Expires in 5 years Start Date: 04/23/22 Status: Ordered Quantity: 1.0 Unit: EA Repeat number: 1 Start: 04-23-[address] Handicap Placard, See Instructions, 1 EA, 0, Expires in 5 years Start Date: 04/23/22 Status: Ordered Handicap Placard, 5 years. (3 sources) Start: 10-25-[address], 5 years. Handicap Placard, 5 years., See Instructions, 1 EA, 0, Handicap Placard, 5 years., Supply Start Date: 10/25/22 Status: Ordered Quantity: 1.0 Unit: EA Repeat number: 1 Indication: Weakness Start: 10-25-[address], 5 years. Handicap Placard, 5 years., See Instructions, 1 EA, 0, Handicap Placard, 5 years., Supply Start Date: 10/25/22 Status: Ordered 3 ml insulin glargine 100 un t/ml pen injector (9 sources) Insulin Analog Start: 04-23-2024 Start: 05-09-2023 Start: 11-08-2022 Lantus Solosta r Pen 100 units/mL subcutaneous solution See Instructions, 30units subq twice a day Please dispense 3 boxes to last 90 day supply, # 3 EA, Refills(s) 1, Pharmacy: [facility]/pharmacy #[id number], 182, cm, 10/25/22 7:40:00 EDT, Height/Length Dosing, 102, kg, 10/25/22 7:40:00 EDT, Weight Dosing Start Date: 11/08/22 Status: Ordered Start: 04-19-2022 Lantus Solosta r Pen 100 units/mL subcutaneous solution INJECT 28 UNITS TWICE DAILY Start Date: 04/19/22 Status: Ordered inject 30 [IU] by almazan bcutaneous injection in the morning insulin glargine (Lantus) 100 UNIT/ML injection Inject 30 Units under the skin in the morning and 30 Units before bedtime. Active 3 ml insulin lispro 100 unt/ ml pen injector (10 sources) Insulin Analog Start: 03-05-2024 Start: 08-02-2023 Start: 04-18-2023 Start: 08-09-2022 HumaLOG KWIKPE N 100 UNIT/ML injection 08/09/2022 Active Start: 08-09-2022 HumaLOG KWIKPE N 100 UNIT/ML injection See Instructions, test and cover ac and hs 151-200 3u, 201-250 6u, 251-300 9u and >351 15u. Max of 10 units a day, # 15 mL, Refills(s) 0, Pharmacy: [facility]/pharmacy #[id number], 182, cm, 06/08/22 13:43:00 EDT, Height/Length Dosing, 107, kg, 06/08/22 13:43:00 E... 08/09/2022 Active Start: 04-26-2022 End: 04-26-2022 Insulin Lispro Sliding Scale 0-10 Units, Injection-Insulin, SubCutaneous, Start date 04/26/22 11:30:00 EDT Start Date: 04/26/22 Stop Date: 04/26/22 Status: Completed Start: 04-19-2022 HumaLOG KwikPe n 100 units/mL injectable solution Refills(s) 0 Start Date: 04/19/22 Status: Ordered 24 hr isosorbide mononitrate 30 mg extended release oral tablet (8 sources) Nitrate Vasodilator Start: 07-22-2022 take 1 tablet by mouth in the morning, then take 1 tablet by mouth every twenty-four hours isosorbide mononitrate ER (Imdur) 30 MG 24 hr tablet Take 30 mg by mouth in the morning. 07/22/2022 Active ketorolac tromethamine 5 mg/ml ophthalmic solution (2 sources) Nonsteroidal Anti-inflammatory Drug, Cyclooxygenase Inhibitor Start: 04-23-2022 ketorolac Opth 0.5% Catherine Refill(s) 0 Start Date: 04/23/22 Status: Ordered losartan potassium 25 mg oral tablet (9 sources) Angiotensin 2 Receptor Farzad Start: 08-17-2023 take 1 tablet by mouth once daily losartan (Cozaar) 25 MG tablet Take 25 mg by mouth Daily 08/17/2023 Active Start: 08-26-2022 take 0.5 tablet by m outh twice daily losartan 50 mg Tab See Instructions, TAKE 1/2 TABLET BY MOUTH TWICE A DAY, # 180 tab(s), Refills(s) 0, Pharmacy: [id number], 182, cm, 06/08/22 13:43:00 EDT, Height/Length Dosing, 107, kg, 06/08/22 13:43:00 EDT, Weight Dosing Start Date: 08/26/22 Status: Ordered Quantity: 180.0 Unit: tab(s) Repeat number: 1 Start: 08-26-2022 take 1 tablet by ryland th twice daily losartan 50 mg Tab See Instructions, TAKE 1 TABLET BY MOUTH TWICE A DAY, # 180 tab(s), Refills(s) 0, Pharmacy: [id number], 182, cm, 06/08/22 13:43:00 EDT, Height/Length Dosing, [...] EVERY DAY Start Date: 04/19/22 Status: Ordered ofloxacin 3 mg/ml ophthalmic solution (1 source) Quinolone Antimicrobial Start: 04-23-2022 ofloxacin Opth 0.3% Catherine Refill(s) 0 Start Date: 04/23/22 Status: Ordered Potassium Chloride (2 sources) Start: 04-19-2022 take 1 tablet by mouth twice daily Potassium Chloride (Kdn-Rdoz-Edo 10) 10 mEq oral tablet, extended release TAKE 1 TABLET BY MOUTH TWICE A DAY Start Date: 04/19/22 Status: Ordered Zinc (2 sources) Start: 04-19-2022 take 1 tablet by mouth once daily [facility] ZINC 50 MG TABLET TAKE 1 TABLET BY MOUTH EVERY DAY Start Date: 04/19/22 Status: Ordered Completed/Discontinued Medications Medication Drug Class(es) Dates Sig (Normalized) Sig (Original) metoprolol tartrate 100 mg oral tablet (12 sources) beta-Adrenergic Farzad Start: 08-11-2023 End: 12-09-2023 take 1 tablet by mouth in the morning metoprolol tartrate (Lopressor) 100 MG tablet Take 100 mg by mouth in the morning and 100 mg before bedtime. 08/11/2023 12/09/2023 Discontinued (Duplicate order) Start: 04-20-2023 metoprolol tar trate (Lopressor) 50 MG tablet Take 100 mg by mouth 04/20/2023 Active Start: 04-20-2023 take 1 tablet by ryland th twice daily Metoprolol tartrate 50 mg Tab [...] A DAY Start Date: 04/19/22 Status: Ordered metoprolol 1 mg/mL Inj (1 source) Start: 04-24-2022 End: 04-26-2022 inject 5 mg intravenously every four hours as needed metoprolol 1 mg/mL Inj 5 mg = 5 mL, Injection, IV Push, q4hr PRN Other (see comment), Routine, Start date 04/24/22 3:09:00 EDT, 04/24/22 3:09:00 EDT Start Date: 04/24/22 Stop Date: 04/26/22 Status: Discontinued Pen Acton (3 sources) Start: 08-11-2022 Pen Acton Pe n Acton, See Instructions, 300 EA, 1, To be used with giving insulin three times Dx: E11.9, [id number], Supply, 182, cm, 06/08/22 13:43:00 EDT, Height/Length Dosing, 107, kg, 06/08/22 13:43:00 EDT, Weight Dosing Start Date: 08/11/22 Status: Ordered Quantity: 300.0 Unit: EA Repeat number: 2 Start: 08-11-2022 Pen Acton Pe n Acton, See Instructions, 300 EA, 1, To be used with giving insulin three times Dx: E11.9, [facility]/pharmacy #[id number], Supply, 182, cm, 06/08/22 13:43:00 EDT, Height/Length Dosing, 107, kg, 06/08/22 13:43:00 EDT, Weight Dosing Start Date: 08/11/22 Status: Ordered Problems Active Problems Problem Classification Problem Date Documented Date Episodic/Chronic Acute myocardial infarction (2 sources) Non-ST elevation (NSTEMI) myocardial infarction; Translations: [Non-ST elevation (NSTEMI) myocardial infarction] Onset: 10-13-2022 Chronic Cardiac dysrhythmias (18 sources) Atrial flutter; Translations: [Paroxysmal atrial fibrillation] Onset: 07-21-2022 04-23-2022 Chronic Cataract (8 sources) Age-related nuclear cataract, right eye; Translations: [Age-related nuclear cataract, left eye] Onset: 03-11-2022 Chronic Chronic kidney disease (7 sources) Chronic kidney disease; Translations: [Chronic kidney disease, unspecified] Onset: 04-24-2022 Chronic Chronic ulcer of skin (5 sources) Non-pressure chronic ulcer of skin of other sites limited to breakdown of skin; Translations: [Non-pressure chronic ulcer of other part of right foot with fat layer exposed] Onset: 09-11-2021 11-04-2022 Chronic Congestive heart failure; nonhypertensive (12 sources) Heart failure, unspecified; 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] Onset: 07-28-2021 Chronic Comment on above: added per 04/29/2023 query response. 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 Diabetes mellitus without complication (15 sources) Type 2 diabetes mellitus without complication; Translations: [Type 2 diabetes mellitus without complications] Onset: 12-22-2020 Chronic Comment on above: linked DM with CKD p er OP CDI policy. linked DM with HLD p er OP CDI policy. Disorders of lipid metabolism (9 sources) Hyperlipidemia; Translations: [Hyperlipidemia, unspecified] Onset: 03-12-2022 Chronic E Codes: Fall (1 source) Fall; Translations: [Unspecified fall, initial encounter] Onset: 04-24-2022 Episodic Essential hypertension (13 sources) Hypertensive disorder; Translations: [Essential (primary) hypertension] Onset: 03-12-2022 04-23-2022 Chronic Fluid and electrolyte disorders (5 sources) Hypokalemia 04-23-2022 Episodic Heart valve disorders (1 source) Nonrheumatic pulmonary valve insufficiency; Translations: [NONRHEUMATIC PULMONARY VALVE INSUFF] Onset: 02-26-2022 Chronic Hypertension with complications and secondary hypertension (2 sources) Hypertensive urgency ; Translations: [Hypertensive urgency] Onset: 04-24-2022 Chronic Comment on above: linked HTN/HF/CKD pe r OP CDI policy. Infective arthritis and osteomyelitis (except that caused by tuberculosis or sexually transmitted disease) (1 source) Other osteomyelitis, unspecified sites; Translations: [OTHER OSTEOMYELITIS UNS SITES] Onset: 01-14-2022 Chronic Malaise and fatigue (3 sources) Asthenia 10-25-2022 Episodic Mycoses (2 sources) Onychomycosis; Translations: [Tinea unguium] 12-11-2023 Episodic Open wounds of head; neck; and trunk (1 source) Laceration of head; Translations: [Laceration without foreign body of other part of head, initial encounter] Onset: 04-23-2022 Episodic Other and ill-defined heart disease (5 sources) Heart disease 04-23-2022 Chronic Comment on above: other Other circulatory disease (1 source) History of cerebrovascular disease; Translations: [Personal history of other diseases of the circulatory system] Onset: 04-24-2022 Episodic Other circulatory disease (5 sources) Vascular insufficiency 04-19-2022 Episodic Comment on above: of limb Other diseases of kidney and ureters (5 sources) Kidney disease 04-23-2022 Episodic Comment on above: other Other diseases of veins and lymphatics (5 sources) Venous hypertension 04-19-2022 Episodic Other hematologic [...] Episodic Other nutritional; endocrine; and metabolic disorders (2 sources) Body mass index 30+ - obesity 03-05-2024 Chronic Other nutritional; endocrine; and metabolic disorders (5 sources) Overweight 04-23-2022 Episodic Other skin disorders (1 source) Scaly skin 03-05-2024 Episodic Other skin disorders (1 source) Callosity; Translations: [Corns and callosities] 08-18-2024 Episodic Peripheral and visceral atherosclerosis (13 sources) Peripheral vascular disease; Translations: [Peripheral vascular disease, unspecified] Onset: 11-06-2020 Chronic Syncope (2 sources) Syncope and collapse; Translations: [Syncope and collapse] Onset: 09-20-2023 Episodic Unclassified (3 sources) Long-term current use of insulin 04-19-2023 Comment on above: Current Medication L ist includes Lantus and Humalog. added per OP CDI policy. Unclassified (1 source) Non-smoker 03-05-2024 Past or Other Problems Problem Classification Problem Date Documented Da te Episodic/Chronic Cardiac dysrhythmias (2 sources) Palpitations; Translations: [Palpitations] Onset: 06-02-2023 Episodic Open wounds of extremities (6 sources) Open wound of lower limb; Translations: [Unspecified open wound, left lower leg, initial encounter] Onset: 07-18-2023 07-25-2023 Episodic Comment on above: resolved per 025 query response. 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; Translations: [NEPHROLOGIST CURRENT USE OF INSULIN] Onset: 03-12-2022 Episodic Other aftercare (1 source) shelter (current) use of anticoagulants; Translations: [SENIOR LIVING CURRNT USE ANTICOAGULANTS] Onset: 03-12-2022 Episodic Other aftercare (4 sources) Long-term current use of insulin; Translations: [shelter (current) use of insulin] Onset: 08-18-2023 08-18-2023 Episodic Other lower respiratory disease (4 sources) Other forms of dyspnea; Translations: [OTHER FORMS OF DYSPNEA] Onset: 02-18-2022 Episodic Other skin disorders (5 sources) Corns and callosities; Translations: [CORNS AND CALLOSITIES] Onset: 10-26-2021 Episodic Other skin disorders (5 sources) Nail dystrophy; Translations: [NAIL DYSTROPHY] Onset: 09-28-2021 Episodic Residual codes; unclassified (1 source) Edema, unspecified; Translations: [EDEMA UNSPECIFIED] Onset: 01-14-2022 Episodic Skin and subcutaneous tissue infections (9 sources) Cellulitis, unspecified; Translations: [Abscess of right foot] Onset: 01-14-2022 11-04-2022 Episodic Superficial injury; contusion (1 source) Blister (nonthermal), left lower leg, initial encounter; Translations: [BLISTER NONTHERMAL LT LOW LEG INIT] Onset: 10-07-2021 Episodic Results Test Name Value Interpretation Reference Range Facil ity Family Medicine Office/Clini c Noteon 08-07-2024 Family Medicine Office/Clinic Note Family Medicine Office/Clinic Note Chief Complaint 3 month f/u The patient presents for management of diabetes and hypertension. HPI Staff Zaira is an 89 year old male presenting for 3 month follow up chronic issues (Previous Dr. Salgado pt) Patient is here for follow up on Diabetes. How often are you checking your blood sugars? 3 times per day What are your average readings? variable readings Paresthesias, Ulcerations or sores? no Lisinopril, aspirin, statin therapy? Yes Foot Exam: DUE Eye Exam: Hgb A1C %: 8.2 % High (06/04/24 13:23:00) Hgb A1c POC: 7.2 % High (03/05/24 11:18:00) Patient is here for follow up on hypertension. How often are you checking your blood pressure? yes What are your average readings? 170s-120s/80s-60s Yearly BMP: _ Refills: Humalog, Lantus, needles History of Present Illness 89-year-old male presenting with his nephew for follow-up for type 2 diabetes mellitus with hyperglycemia and essential hypertension. 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 He has been managing a chronic wound on his leg, initially presenting as a blister, which has been healing slowly over the past two and a half weeks with the use of iodine and Epsom salt soaks. The wound has shown improvement, with reduced redness and scaling, although the patient has been advised to consider using mineral oil to aid in healing. The patient's blood glucose levels have been variable, with recent readings ranging from 155 mg/dL to 237 mg/dL, and he has experienced episodes of not taking insulin due to illness. He is prescribed 30 units of insulin in the morning and evening, but adherence has been inconsistent. The patient also has a history of essential hypertension, with current blood pressure readings at 138/86 mmHg. He has been on metoprolol, which was recently doubled, although he questions the necessity of this adjustment. The patient is a non-smoker and has a BMI in the range of 32.0-32.9, indicating obesity. Review of Systems PHQ Score Initial Depression Screen Score: 0 SCORE - Integumentary: Reports chronic wound on leg, healing slowly over two and a half weeks. - Endocrine: Reports variable blood glucose levels, ranging from 155 mg/dL to 237 mg/dL. - Cardiovascular: Denies chest pain or palpitations. Physical Exam Vitals & Measurements HR: 52(Peripheral) BP: 126/58 SpO2: 97% HT: 182 cm HT: 72 in WT: 108.7 kg WT: 239.642 lb BMI: 32.82 General: alert, no acute distress Skin: warm, dry Head: no trauma, normocephalic Cardiovascular: regular rate and rhythm, normal peripheral perfusion Respiratory: Lungs CTA, respirations non labored Extremities: no deformity, no trauma Neurological: oriented x 4, LOC appropriate for age speech normal Assessment/Plan 1. Type 2 diabetes mellitus with hyperglycemia (E11.65: Type 2 diabetes mellitus with hyperglycemia) - Monitor blood glucose levels regularly and adjust insulin dosage as needed. - Schedule follow-up in four weeks to reassess blood glucose control and perform A1c testing. Ordered: 1126F Pain severity quantified; no pain present Current tobacco non-user 1036F Medication list documented in medical record 1159F Most recent diastolic blood pressure <80 mm Hg 3078F Systolic BP <130 mm Hg (Most Recent) 3074F 2. HTN (hypertension) (I10: Essential (primary) hypertension) - Continue current antihypertensive regimen with metoprolol, but evaluate the necessity of the recent dosage increase. - Monitor blood pressure regularly and adjust treatment as necessary. 3. Non-smoker (Z78.9: Other specified health status) - Continue to maintain non-smoking status. 4. BMI 32.0-32.9,adult (Z68.32: Body mass index [BMI] 32.0-32.9, adult) - Encourage lifestyle modifications including diet and exercise to address obesity. Total time spent preparing the chart, conducting of the encounter with the patient and family and time spent documenting, reviewing, and ordering tests was 40 minutes. 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 Normal [facility] Comment on above: Result Comment: Elec tronically Signed By: GIRISH BECKER CNP\.jeet\Date and Time Signed: 08/07/24 15:25 EDT Reminderson 06-05-2024 Reminders Reminders - From: Dipesh PABLO, Gilson Jackson To: [facility] - Clinical; Sent: 06/05/2024 08:10:28 EDT Show up: 06/05/2024 08:11:00 EDT Subject: Labs Due Date/Time: 06/06/2024 08:10:00 EDT Labs are stable Results: Date Result Name Ind Value Ref Range 06/04/2024 13:23 WBC 6.2 E9/L (4.0 - 11.0) 06/04/2024 13:23 RBC 4.7 E12/L (4.3 - 5.9) 06/04/2024 13:23 HGB 14.0 gm/dL (13.5 - 17.5) 06/04/2024 13:23 Hct 41.1 % (37.7 - 49.0) 06/04/2024 13:23 MCV 88.4 fL (80.0 - 100.0) 06/04/2024 13:23 MCH 30.1 pg (27.0 - 34.0) 06/04/2024 13:23 MCHC 34.1 gm/dL (31.4 - 36.0) 06/04/2024 13:23 RDW 13.3 % (10.9 - 14.2) 06/04/2024 13:23 Platelet (L) 147.0 E9/L (150.0 - 500.0) 06/04/2024 13:23 MPV 9.1 fL (6.4 - 10.8) 06/04/2024 13:23 Neutro Auto 59.9 % (36.0 - 75.0) 06/04/2024 13:23 Lymph Auto 22.7 % (14.0 - 50.0) 06/04/2024 13:23 Iroquois Auto 10.3 % (4.0 - 14.0) 06/04/2024 13:23 Eos Auto 6.6 % (0.0 - 8.0) 06/04/2024 13:23 Basophil Auto 0.5 % (0.0 - 2.0) 06/04/2024 13:23 Neutro Absolute 3.7 E9/L (2.0 - 7.5) 06/04/2024 13:23 Lymph Absolute 1.4 E9/L (1.0 - 4.0) 06/04/2024 13:23 [place]ois Absolute 0.6 E9/L (0.2 - 1.0) 06/04/2024 13:23 Eos Absolute 0.4 E9/L (0.0 - 0.5) 06/04/2024 13:23 Basophil Absolute 0.0 E9/L (0.0 - 0.2) 06/04/2024 13:23 Glucose Lvl 121 mg/dL (55 - 199) 06/04/2024 13:23 BUN (H) 28 mg/dL (5 - 21) 06/04/2024 13:23 Creatinine (H) 1.4 mg/dL (0.5 - 1.3) 06/04/2024 13:23 eGFR (L) 49 mL/min/1.73 m2 (>=59 - ) 06/04/2024 13:23 BUN/Creat Ratio 20 (10 - 20) 06/04/2024 13:23 Sodium Lvl 140 mmol/L (135 - 145) 06/04/2024 13:23 Potassium Lvl 3.7 mmol/L (3.5 - 5.3) 06/04/2024 13:23 Chloride 104 mmol/L (101 - 111) 06/04/2024 13:23 CO2 31 mmol/L (21 - 31) 06/04/2024 13:23 AGAP 9 mEq/L (6 - 16) 06/04/2024 13:23 Calcium Lvl 9.0 mg/dL (8.9 - 11.1) 06/04/2024 13:23 Alk Phos 46 Int._Unit/L (21 - 98) 06/04/2024 13:23 ALT 13 Int._Unit/L (6 - 46) 06/04/2024 13:23 AST 20 Int._Unit/L (5 - 43) 06/04/2024 13:23 Total Protein 6.7 gm/dL (6.0 - 7.8) 06/04/2024 13:23 Albumin Lvl 4.0 gm/dL (3.3 - 5.0) 06/04/2024 13:23 Globulin 2.7 gm/dL (1.4 - 4.0) 06/04/2024 13:23 A/G Ratio 1.5 (1.1 - 2.2) 06/04/2024 13:23 Bili Total 0.8 mg/dL (0.0 - 1.1) 06/04/2024 13:23 Hgb A1C % (H) 8.2 % ( - <=5.9) 06/04/2024 13:23 U Microalb (H) 3.4 mg/dL (0.0 - 1.9) 06/04/2024 13:23 U Creatinine 55.0 mg/dL 06/04/2024 13:23 Microalb/Cr Ratio (H) 61.8 mg/gm Cr (0.0 - 30.0) pt notified and asked for 2 copies of his labs to sent to him. Sent to current address. Normal [facility] Ambulatory Visit Summaryon 0 06-04-2024 Ambulatory Visit Summary Ambulatory Visit Summary ZAIRA SEGURA III :1935 Visit Date:06/04/2024 Ambulatory Visit Instructions Your Diagnosis Paroxysmal A-fib BMI 33.0-33.9,adult Nonsmoker Obesity (BMI 30-39.9) HTN (hypertension) CAD in [place] artery Type 2 diabetes mellitus with hyperglycemia Your Care Team Attending Physician - Gilson Salgado MD Primary Care Physician - Gilson Salgado MD This Is Your Medications List Misc Prescription (BD UF MAIDA PEN NEEDLE [id number]) Misc Prescription (Handicap Placard) Misc Prescription (Handicap Placard, 5 years.) Misc Prescription (Pen [place]) Misc Prescription (pen needles) apixaban (Eliquis 5 mg oral tablet) atorvastatin (Lipitor 20 mg Tab) furosemide (furosemide 20 mg Tab) insulin glargine (Lantus Solostar Pen 100 units/mL subcutaneous solution) insulin lispro (HumaLOG KwikPen 100 units/mL injectable solution) isosorbide mononitrate (isosorbide mononitrate 30 mg ER Tab) losartan (losartan 50 mg Tab) metoprolol (Metoprolol tartrate 50 mg Tab) Procedures Performed Cardiac catheter (07/21/2022), Angioplasty, Cataract, Inguinal hernia, Stent, Surgery. Discharge Vitals Temperature (Tympanic) 36.8 ???C Heart Rate (Peripheral) 52 Respiratory Rate 18 Blood Pressure 138/86 Height 182 cm Height 72 in Weight 110 kg Weight 242.508 lb BMI 33.21 What to do next Scheduled Follow-Up Appointments 2024 2:30 PM EST Where: [address] [id number]- Medications What How Much When Why Instructions Unchanged apixaban (Eliquis 5 mg oral tablet) 1 Tablets By Mouth 2 times a day Unchanged atorvastatin (Lipitor 20 mg Tab) 1 Tablets By Mouth Every day Unchanged furosemide (furosemide 20 mg Tab) PLEASE SEE ATTACHED FOR DETAILED DIRECTIONS Unchanged insulin glargine (Lantus Solostar Pen 100 units/ mL subcutaneous solution) See instructions INJECT 30 UNITS SUBCUTANEOUSLY TWICE A DAY Unchanged insulin lispro (HumaLOG KwikPen 100 units/ mL injectable solution) See instructions USE DIRECTED *MAX OF 10 UNITS/ DAY * BEFOR MEALS AND BEDTIME Unchanged isosorbide mononitrate (isosorbide mononitrate 30 mg ER Tab) TAKE 1 TABLET BY MOUTH EVERY MORNING. DO NOT CRUSH OR CHEW Unchanged losartan (losartan 50 mg Tab) See instructions TAKE 1/ 2 TABLET BY MOUTH TWICE A DAY Unchanged metoprolol (Metoprolol tartrate 50 mg Tab) 2 Tablets By Mouth 2 times a day Unchanged Misc Prescription (BD UF MAIDA PEN NEEDLE [id number]) USE 3 TIMES DAILY WITH INSULIN Unchanged Misc Prescription (Handicap Placard) See instructions Expires in 5 years Unchanged Misc Prescription (Handicap Placard, 5 years.) See instructions Weakness generalized Handicap Placard, 5 years. Unchanged Misc Prescription ([place]) See instructions To be used with giving insulin three times Dx: E11.9 Unchanged Misc Prescription (pen needles) See instructions BD UF maida pen needle 4mm x 32g E11.9 Allergies niacin (Unknown) Problems Ongoing - Any problem that you are currently receiving treatment for. 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 Atrial flutter Heart disease HTN - Hypertension Hypokalemia Kidney disease Open wound of left lower extremity Overweight Type 2 diabetes mellitus with hyperglycemia, without long-term current use of insulin Type II diabetes mellitus uncontrolled Patient Survey You may receive a survey via text or e-mail asking about your office visit. Please share your experience with us by completing your survey. We appreciate your feedback and thank you for choosing us for your care. Normal [facility] CBC w/ Auto Diffon 5 Basophils/100 WBC (Bld) 0.5 % Normal 0.0-2.0 [facility] Comment on above: Performed By: #### 2 [id number] #### [facility] [address] [place] [address] Basophils/Leukocytes Auto (Bld) [Pure # fraction] 0.0 E9/L Normal 0.0-0.2 [facility] Comment on above: Performed By: #### 2 [id number] #### [facility] [address] [place] [address] Eosinophils (Bld) [#/Vol] 0.4 E9/L Normal 0.0-0.5 [facility] Comment on above: Performed By: #### 2 [id number] #### [facility] [address] [place] [address] Eosinophils/100 WBC (Bld) 6.6 % Normal 0.0-8.0 [facility] Comment on above: Performed By: #### 2 [id number] #### [facility] [address] [place] [address] Erythrocyte distribution width (RBC) [Ratio] 13.3 % Normal 10.9-14.2 [facility] Comment on above: Performed By: #### 2 [id number] #### [facility] [address] [place] [address] Hematocrit (Bld) [Volume fraction] 41.1 % Normal 37.7-49.0 [facility] Comment on above: Performed By: #### 2 [id number] #### [facility] [address] [place] [address] Hemoglobin (Bld) [Mass/Vol] 14.0 g/dL Normal 13.5-17.5 [facility] Comment on above: Performed By: #### 2 [id number] #### [facility] [address] [place] [address] Lymphocytes (Bld) [#/Vol] 1.4 E9/L Normal 1.0-4.0 [facility] Comment on above: Performed By: #### 2 [id number] #### [facility] [address] [place] [address] Lymphocytes/100 WBC (Bld) 22.7 % Normal 14.0-50.0 [facility] Comment on above: Performed By: #### 2 [id number] #### [facility] [address] [place] [address] MCH (RBC) [Entitic mass] 30.1 pg Normal 27.0-34.0 [facility] Comment on above: Performed By: #### 2 [id number] #### [facility] [address] [place] [address] MCHC (RBC) [Mass/Vol] 34.1 g/dL Normal 31.4-36.0 [facility] Comment on above: Performed By: #### 2 [id number] #### [facility] [address] [place] [address] MCV (RBC) [Entitic vol] 88.4 fL Normal 80.0-100.0 [facility] Comment on above: Performed By: #### 2 [id number] #### [facility] [address] [place] [address] Monocytes (Bld) [#/Vol] 0.6 E9/L Normal 0.2-1.0 [facility] Comment on above: Performed By: #### 2 [id number] #### [facility] [address] [place] [address] Neutrophils (Bld) [#/Vol] 3.7 E9/L Normal 2.0-7.5 [facility] Comment on above: Performed By: #### 2 [id number] #### [facility] [address] [place] [address] Neutrophils/100 WBC (Bld) 59.9 % Normal 36.0-75.0 [facility] Comment on above: Performed By: #### 2 [id number] #### [facility] [address] [place] [address] Platelet mean volume (Bld) [Entitic vol] 9.1 fL Normal 6.4-10.8 [facility] Comment on above: Performed By: #### 2 [id number] #### [facility] [address] [place] [address] Platelets (Bld) [#/Vol] 147.0 E9/L Low 150.0-500.0 [facility] Comment on above: Performed By: #### 2 [id number] #### [facility] [address] [place] [address] RBC (Bld) [#/Vol] 4.7 E12/L Normal 4.3-5.9 [facility] Comment on above: Performed By: #### 2 [id number] #### [facility] [address] [place] [address] WBC corrected for nucl RBC Auto (Bld) [#/Vol] 6.2 E9/L Normal 4.0-11.0 [facility] Comment on above: Performed By: #### 2 [id number] #### [facility] [address] [place] [address] CHEMISTRYOrdered By: SYSTEM SYSTEM on 06-04-2024 Albumin [Mass/Vol] 4.0 g/dL Normal 3.3 - 5.0 gm/dL R emisol Chem Albumin DL <= 20 mg/L (U) [Mass/Vol] 3.4 mg/dL High 0.0 - 1.9 mg/dL Remisol Chem Albumin/Creatinine DL <= 20 mg/L (U) [Mass ratio] 61.8 mg/gm Cr High 0.0 - 30.0 mg/gm Cr [facility] Comment on above: Interpretive Data: 3 0-300 mg/g Cr indicates an increased risk for diabetic nephropathy. >300 mg/g Cr is consistent with clinical nephropathy. Albumin/Globulin [Mass ratio] 1.5 {ratio} Normal 1.1 - 2.2 [facility] Chem ALP [Catalytic activity/Vol] 46 [iU]/d Normal 21 - 98 Int._Unit/L Rem[facility] Chem ALT No additional P-5'-P [Catalytic activity/Vol] 13 [iU]/d Normal 6 - 46 Int._Unit/L Remisol Chem Anion gap [Moles/Vol] 9 mmol/L Normal 6 - 16 mEq/L R emisol Chem AST [Catalytic activity/Vol] 20 [iU]/d Normal 5 - 43 Int._Unit/L Remisol Chem Bilirubin [Mass/Vol] 0.8 mg/dL Normal 0.0 - 1.1 mg/dL [facility] Chem Calcium [Mass/Vol] 9.0 mg/dL Normal 8.9 - 11.1 mg/dL [facility] Chem Chloride [Moles/Vol] 104 mmol/L Normal 101 - 111 mmol/ L [facility] Chem CO2 [Moles/Vol] 31 mmol/L Normal 21 - 31 mmol/L Remis ol Chem Creatinine [Mass/Vol] 1.4 mg/dL High 0.5 - 1.3 mg/d L Remisol Chem eGFR 49 mL/min/1.73 m2 Low >=59mL/min /1.73 m2 Remisol Chem Globulin (S) [Mass/Vol] 2.7 g/dL Normal 1.4 - 4.0 gm/dL Remisol Chem Glucose [Mass/Vol] 121 mg/dL Normal 55 - 199 mg/dL Re misol Chem Potassium [Moles/Vol] 3.7 mmol/L Normal 3.5 - 5.3 mmol /L Remisol Chem Protein [Mass/Vol] 6.7 g/dL Normal 6.0 - 7.8 gm/dL R emisol Chem Sodium [Moles/Vol] 140 mmol/L Normal 135 - 145 mmol/L Remisol Chem U Creatinine 55.0 mg/dL Invalid Interpretation Code Remisol Chem Urea nitrogen [Mass/Vol] 28 mg/dL High 5 - 21 mg/dL Remisol Chem Urea nitrogen/Creatinine [Mass ratio] 20 mg/mg Normal 10 - 20 Remisol Chem CHEMISTRYOrdered By: Melany Saldana on 06-04-2024 HbA1c (Bld) [Mass fraction] 8.2 % High <=5.9% [facility] ChemAutoSS CMPon 06-04-2024 Albumin [Mass/Vol] 4.0 g/dL Normal 3.3-5.0 [facility] Comment on above: Performed By: #### 2 [id number] #### [facility] [address] [place] [address] Albumin/Globulin (S) [Mass conc ratio] 1.5 Normal 1.1-2.2 [facility] Comment on above: Performed By: #### 2 [id number] #### [facility] [address] [place] [address] ALP [Catalytic activity/Vol] 46 Int._Unit/L Normal 21-98 [facility] Comment on above: Performed By: #### 2 [id number] #### [facility] [address] [place] [address] ALT No additional P-5'-P [Catalytic activity/Vol] 13 Int._Unit/L Normal 6-46 [facility] Comment on above: Performed By: #### 2 [id number] #### [facility] [address] [place] [address] Anion gap [Moles/Vol] 9 mmol/L Normal 6-16 [facility] Comment on above: Performed By: #### 2 [id number] #### [facility] [address] [place] [address] AST [Catalytic activity/Vol] 20 Int._Unit/L Normal 5-43 [facility] Comment on above: Performed By: #### 2 [id number] #### [facility] [address] [place] [address] Bilirubin [Mass/Vol] 0.8 mg/dL Normal 0.0-1.1 [place] Comment on above: Performed By: #### 2 [id number] #### [facility] [address] [place] [address] Calcium [Mass/Vol] 9.0 mg/dL Normal 8.9-11.1 [facility] Comment on above: Performed By: #### 2 [id number] #### [facility] [address] [place] [address] Chloride [Moles/Vol] 104 mmol/L Normal 101-111 [place] Comment on above: Performed By: #### 2 [id number] #### [facility] [address] [place] [address] CO2 [Moles/Vol] 31 mmol/L Normal 21-31 [facility] Comment on above: Performed By: #### 2 [id number] #### [facility] [address] [place] [address] Creatinine [Mass/Vol] 1.4 mg/dL High 0.5-1.3 [facility] Comment on above: Performed By: #### 2 [id number] #### [facility] [address] [place] [address] Globulin (S) [Mass/Vol] 2.7 g/dL Normal 1.4-4.0 [facility] Comment on above: Performed By: #### 2 [id number] #### [facility] [address] [place] [address] Glucose [Mass/Vol] 121 mg/dL Normal 55-199 [facility] Comment on above: Performed By: #### 2 [id number] #### [facility] [address] [place] [address] Potassium [Moles/Vol] 3.7 mmol/L Normal 3.5-5.3 [facility] Comment on above: Performed By: #### 2 [id number] #### [facility] [address] [place] [address] Protein [Mass/Vol] 6.7 g/dL Normal 6.0-7.8 [facility] Comment on above: Performed By: #### 2 [id number] #### [facility] [address] [place] [address] Sodium [Moles/Vol] 140 mmol/L Normal 135-145 [facility] Comment on above: Performed By: #### 2 [id number] #### [facility] [address] [place] [address] Urea nitrogen [Mass/Vol] 28 mg/dL High 5-21 [facility] Comment on above: Performed By: #### 2 [id number] #### [facility] [address] [place] [address] Urea nitrogen/Creatinine [Mass ratio] 20 No Units Normal 10-20 [facility] Comment on above: Performed By: #### 2 [id number] #### [facility] [address] [place] [address] Family Medicine Office/Clini c Noteon 06-04-2024 Family Medicine Office/Clinic Note Family Medicine Office/Clinic Note Chief Complaint 3m follow up Recurring chest soreness, particularly at night, and fluctuating blood sugars HPI Staff 3m follow up Patient is here for follow up on Diabetes. How often are you checking your blood sugars? _2x/day What are your average readings? _130-150 Paresthesias, Ulcerations or sores? no Lisinopril, aspirin, statin therapy? Yes Last A1c: Hgb A1C %: 8.6 % High (04/20/23 08:39:00) Hgb A1c POC: 7.2 % High (03/05/24 11:18:00) Patient is here for follow up on hypertension. How often are you checking your blood pressure? _occasionally What are your average readings? _130/70 Yearly BMP: _ BUN: 28 mg/dL High (08/02/23 11:03:00) Calcium Lvl: 9.1 mg/dL (08/02/23 11:03:00) Chloride: 105 mmol/L (08/02/23 11:03:00) CO2: 32 mmol/L High (08/02/23 11:03:00) Creatinine: 1.4 mg/dL High (08/02/23 11:03:00) eGFR: 49 mL/min/1.73 m2 Low (08/02/23 11:03:00) Glucose Lvl: 61 mg/dL (08/02/23 11:03:00) Potassium Lvl: 4 mmol/L (08/02/23 11:03:00) Sodium Lvl: 142 mmol/L (08/02/23 11:03:00) Referred to wound care @ [facility]. Pt states he does not recollect this. Questions/Concerns: Needs Humalog refill-[facility] [place] History of Present Illness - The patient is an 89-year-old male presenting with chest pain and blood sugar management issues. - Nighttime chest soreness primarily on the left side, alleviated by positional changes. - Long-standing paroxysmal atrial fibrillation and coronary artery disease; has not seen weed control inspector Dr. Mcbride for months. - Significant hyperglycemic episodes with dietary challenges noted as a cause. - Darken wounds on the legs observed, oozing slightly, yet improving without immediate intervention. - Discussed dietary influences on blood sugar control, emphasizing the effects of high carbohydrate intake from Tamaz[employer] fries and applesauce. - Reviewed necessity of regular visits per insurance requirements for ongoing health monitoring. - Suggested wound care evaluation to assess leg wound healing progress. Review of Systems PHQ Score Initial Depression Screen Score: 0 SCORE Physical Exam Vitals & Measurements T: 36.8 ???C(Tympanic) HR: 52(Peripheral) RR: 18 BP: 138/86 SpO2: 98% HT: 72 in HT: 182 cm WT: 242.508 lb WT: 110 kg BMI: 33.21 General: alert, no acute distress ENMT: oral mucosa moist Cardiovascular: Regular rate and rhythm, normal peripheral perfusion Respiratory: Lungs clear to auscultation, respirations non labored Extremities: no deformity, no trauma, some areas on the legs are healing, with slight oozing noted Neurological: oriented x 4, level of consciousness appropriate for age, CN II-XII intact, motor strength equal & normal bilaterally, speech normal Abdomen: Soft, Non-tender, Non-distended, + Bowel sounds Assessment/Plan 1. Paroxysmal A-fib (I48.0: Paroxysmal atrial fibrillation) Afib today. Continue on meds. Follow up with Cardiology Ordered: CBC w/ Auto Diff Comprehensive Metabolic Panel HgbA1c Microalbumin Level Urine Urine Microalbumin/Creatin ine Ratio 2. BMI 33.0-33.9,adult (Z68.33: Body mass index [BMI] 33.0-33.9, adult) - Address weight management. Ordered: CBC w/ Auto Diff Comprehensive Metabolic Panel HgbA1c Microalbumin Level Urine Urine Microalbumin/Creatin ine Ratio 3. Nonsmoker (Z78.9: Other specified health status) Please continue to not smoke Ordered: CBC w/ Auto Diff Comprehensive Metabolic Panel HgbA1c Microalbumin Level Urine Urine Microalbumin/Creatin ine Ratio 4. Obesity (BMI 30-39.9) (E66.9: Obesity, unspecified) Diet and exercise advised. Ordered: Body Mass Index (BMI) documented 3008F CBC w/ Auto Diff Comprehensive Metabolic Panel Current tobacco non-user 1036F Depression Screening Negative 3352F Discharge medications reconciled with current medications in outpatient record 1111F HgbA1c Influenza immunization status assessed 1030F Medication list documented in medical record 1159F Microalbumin Level Urine Most recent diastolic blood pressure 80-89 mm Hg 3079F Patient screen for fall risk: no falls in last year or 1 fall with no injury in last year 1101F Review of all meds by a prescribing practitioner or clinical pharmacist documented in EHR 1160F Systolic BP 130-139 mm Hg (Most Recent) 3075F Urine Microalbumin/Creatin ine Ratio 5. HTN (hypertension) (I10: Essential (primary) hypertension) Ordered: CBC w/ Auto Diff Comprehensive Metabolic Panel HgbA1c Microalbumin Level Urine Urine Microalbumin/Creatin ine Ratio 6. CAD in [place] artery (I25.10: Atherosclerotic heart disease of [place] coronary artery without angina pectoris) - Monitor symptoms, follow up with weed control inspector if needed. Ordered: CBC w/ Auto Diff Comprehensive Metabolic Panel HgbA1c Microalbumin Level Urine Urine Microalbumin/Creatin ine Ratio 7. Type 2 diabetes mellitus with hyperglycemia (E11.65: Type 2 diabetes mellitus with hyperg (more content not included)... Normal [facility] Comment on above: Result Comment: Elec tronically Signed By: Dipesh PABLO, Gilson Russo.br\Date and Time Signed: 06/04/24 13:12 EDT HEMATOLOGYOrdered By: SYSTEM SYSTEM on 06-04-2024 Basophils/100 WBC (Bld) 0.5 % Normal 0.0 - 2.0 % Remisol Heme Basophils/Leukocytes Auto (Bld) [Pure # fraction] 0.0 E9/L Normal 0.0 - 0.2 E9/L Rem[facility] Heme Eosinophils (Bld) [#/Vol] 0.4 E9/L Normal 0.0 - 0.5 E9/L Rem[facility] Heme Eosinophils/100 WBC (Bld) 6.6 % Normal 0.0 - 8.0 % Rem[facility] Heme Erythrocyte distribution width (RBC) [Ratio] 13.3 % Normal 10.9 - 14.2 % Rem[facility] Heme Hematocrit (Bld) [Volume fraction] 41.1 % Normal 37.7 - 49.0 % Rem[facility] Heme Hemoglobin (Bld) [Mass/Vol] 14.0 g/dL Normal 13.5 - 17.5 gm/dL Rem[facility] Heme Lymphocytes (Bld) [#/Vol] 1.4 E9/L Normal 1.0 - 4.0 E9/L [facility] Heme Lymphocytes/100 WBC (Bld) 22.7 % Normal 14.0 - 50.0 % Rem[facility] Heme MCH (RBC) [Entitic mass] 30.1 pg Normal 27.0 - 34.0 pg Remisol Heme MCHC (RBC) [Mass/Vol] 34.1 g/dL Normal 31.4 - 36.0 gm/dL Rem[facility] Heme MCV (RBC) [Entitic vol] 88.4 fL Normal 80.0 - 100.0 fL Rem[facility] Heme Monocytes (Bld) [#/Vol] 0.6 E9/L Normal 0.2 - 1.0 E9/L Rem[facility] Heme Monocytes/100 WBC (Bld) 10.3 % Normal 4.0 - 14.0 % Rem[facility] Heme Neutrophils (Bld) [#/Vol] 3.7 E9/L Normal 2.0 - 7.5 E9/L Rem[facility] Heme Neutrophils/100 WBC (Bld) 59.9 % Normal 36.0 - 75.0 % Rem[facility] Heme Platelet mean volume (Bld) [Entitic vol] 9.1 fL Normal 6.4 - 10.8 fL Rem[facility] Heme Platelets (Bld) [#/Vol] 147.0 E9/L Low 150.0 - 500.0 E9/L Remisol Heme RBC (Bld) [#/Vol] 4.7 E12/L Normal 4.3 - 5.9 E12/L Re misol Heme WBC corrected for nucl RBC Auto (Bld) [#/Vol] 6.2 E9/L Normal 4.0 - 11.0 E9/L Remisol Heme [id number] 06-04-2024 HbA1c (Bld) [Mass fraction] 8.2 % High <=5.9 [facility] Comment on above: Performed By: #### 7 [id number] #### [facility] [address] [place] [address] U MA/Cr Ratioon 06-04-2024 Albumin DL <= 20 mg/L (U) [Mass/Vol] 3.4 mg/dL High 0.0-1.9 [facility] Comment on above: Performed By: #### 1 [id number] #### [facility] [address] [place] [address] Albumin/Creatinine DL <= 20 mg/L (U) [Mass ratio] 61.8 mg/gm Cr High .0-30.0 [facility] Comment on above: Result Comment: 30-3 00 mg/g Cr indicates an increased risk for diabetic nephropathy. >300 mg/g Cr is consistent with clinical nephropathy. Performed By: #### 1 [id number] #### [facility] [address] [place] [address] U Creatinine 55.0 mg/dL Invalid Interpretation Code [facility] Comment on above: Performed By: #### 1 [id number] #### [facility] [address] [place] [address] eGFRon 06-04-2024 eGFR 49 mL/min/1.73 m2 Low >=59 [facility] Comment on above: Performed By: #### 1 [id number] #### [facility] [address] [place] [address] Ambulatory Visit Summaryon 0 03-05-2024 Ambulatory Visit Summary Ambulatory Visit Summary ZAIRA SEGURA III :1935 Visit Date:03/05/2024 Ambulatory Visit Instructions Your Diagnosis Type 2 diabetes mellitus with hyperlipidemia Type 2 diabetes mellitus with peripheral vascular disease 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 Long-term insulin use Paroxysmal A-fib Type 2 diabetes mellitus with hyperglycemia Peripheral vascular disease BMI 33.0-33.9,adult Obesity (BMI 30-39.9) Nonsmoker Your Care Team Attending Physician - Gilson Salgado MD Primary Care Physician - Gilson Salgado MD This Is Your Medications List Misc Prescription (BD UF MAIDA PEN NEEDLE [id number]) Misc Prescription (Handicap Placard) Misc Prescription (Handicap Placard, 5 years.) Misc Prescription ([place]) Misc Prescription (pen needles) apixaban (Eliquis 5 mg oral tablet) atorvastatin (Lipitor 20 mg Tab) furosemide (furosemide 20 mg Tab) insulin glargine (Lantus Solostar Pen 100 units/mL subcutaneous solution) insulin lispro (HumaLOG KwikPen 100 units/mL injectable solution) isosorbide mononitrate (isosorbide mononitrate 30 mg ER Tab) losartan (losartan 50 mg Tab) metoprolol (Metoprolol tartrate 50 mg Tab) Procedures Performed Cardiac catheter (07/21/2022), Angioplasty, Cataract, Inguinal hernia, Stent, Surgery. Discharge Vitals Heart Rate (Peripheral) 76 Respiratory Rate 18 Blood Pressure 138/86 Height 182 cm Height 72 in Weight 110.1 kg Weight 242.729 lb BMI 33.24 What to do next Scheduled Follow-Up Appointments Tuesday 1:00 PM EDT With: Gilson Salgado MD Where: [address] [address]24 2:30 PM EST With: Where: [address] [place] [address]- Medications What How Much When Why Instructions Unchanged apixaban (Eliquis 5 mg oral tablet) 1 Tablets By Mouth 2 times a day Unchanged atorvastatin (Lipitor 20 mg Tab) 1 Tablets By Mouth Every day Unchanged furosemide (furosemide 20 mg Tab) PLEASE SEE ATTACHED FOR DETAILED DIRECTIONS Unchanged insulin glargine (Lantus Solostar Pen 100 units/ mL subcutaneous solution) See instructions INJECT 30 UNITS SUBCUTANEOUSLY TWICE A DAY Unchanged insulin lispro (HumaLOG KwikPen 100 units/ mL injectable solution) See instructions USE DIRECTED *MAX OF 10 UNITS/ DAY * BEFOR MEALS AND BEDTIME Unchanged isosorbide mononitrate (isosorbide mononitrate 30 mg ER Tab) TAKE 1 TABLET BY MOUTH EVERY MORNING. DO NOT CRUSH OR CHEW Unchanged losartan (losartan 50 mg Tab) See instructions TAKE 1/ 2 TABLET BY MOUTH TWICE A DAY Unchanged metoprolol (Metoprolol tartrate 50 mg Tab) 2 Tablets By Mouth 2 times a day Unchanged Misc Prescription (BD UF MAIDA PEN NEEDLE [id number]) USE 3 TIMES DAILY WITH INSULIN Unchanged Misc Prescription (Handicap Placard) See instructions Expires in 5 years Unchanged Misc Prescription (Handicap Placard, 5 years.) See instructions Weakness generalized Handicap Placard, 5 years. Unchanged Misc Prescription ([place]) See instructions To be used with giving insulin three times Dx: E11.9 Unchanged Misc Prescription (pen needles) See instructions BD UF maida pen needle 4mm x 32g E11.9 Allergies niacin (Unknown) Problems Ongoing - Any problem that you are currently receiving treatment for. 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 Atrial flutter Heart disease HTN - Hypertension Hypokalemia Kidney disease Overweight Type 2 diabetes mellitus with hyperglycemia, without long-term current use of insulin Type II diabetes mellitus uncontrolled Patient Survey You may receive a survey via text or e-mail asking about your office visit. Please share your experience with us by completing your survey. We appreciate your feedback and thank you for choosing us for your care. [facility] Family Medicine Office/Clini c Noteon 03-05-2024 Family Medicine Office/Clinic Note Family Medicine Office/Clinic Note Chief Complaint 6m follow up The patient is here for routine management of chronic conditions, including diabetes and hypertension. HPI Staff Zaira is a 88 year old male presenting with 4 month f/u HTN, DM, CKD Do you have any of the following symptoms? Foot Exam: few months ago Eye Exam: last Spring Last A1C: 04/20/23- 8.6 Statin: no Patient is here for follow up on hypertension. How often are you checking your blood pressure? _occasionally What are your average readings? _ 130/85 Yearly BMP: _04/20/23 Unsure if he needs refills. Lt leg is reddened with pus. Has been gradually getting worse over the past 6m. History of Present Illness The patient is an 88-year-old male presenting with concerns related to the management of his chronic conditions, primarily hypertensive heart and kidney disease with heart failure and chronic kidney disease (CKD) stage III, as well as type 2 diabetes mellitus with hyperglycemia. The patient reports his skin as frail, with occasional dryness and flakiness, which he attributes to water pill usage, but notes no current signs of oozing or open wounds. He uses a gentle washing routine to manage skin concerns and has a history of peripheral vascular disease, often experiencing dry or callused skin. He notes well-controlled morning blood sugars, generally within the 100s, but mentions evening readings sometimes reaching into the 200s, with occasional spikes to 300. The patient uses sliding-scale insulin management, particularly during the day. He describes occasional nightmares, suspected to be linked to low blood sugar episodes. Nighttime blood sugar dips into the 70s have been managed with apple and peanut butter snacks before bed. The patient's blood pressure, previously at hypertensive levels, was stable during the visit. He requires routine lab tests, including an HbA1c, for ongoing diabetes management and CKD monitoring. - Blood pressure monitoring has shown good control; no acute concerns are noted. - Routine HbA1c testing is required for diabetes management. - Patient is advised on maintaining a balanced diet, incorporating apples and peanut butter for blood sugar regulation. - Discussion on regular, gentle skin care to manage frailty and potential callusing of the skin. Review of Systems PHQ Score Initial Depression Screen Score: 0 SCORE - Skin: Reports dryness and flakiness, similar to callusing. - Cardiovascular: Denies chest pain. - Endocrine: Reports controlled morning blood sugars but high evening levels. - Neurological: Reports occasional nightmares. Physical Exam Vitals & Measurements HR: 76(Peripheral) RR: 18 BP: 138/86 SpO2: 100% HT: 72 in HT: 182 cm WT: 110.1 kg WT: 242.729 lb BMI: 33.24 General: alert, no acute distress ENMT: oral mucosa moist Cardiovascular: Regular rate and rhythm, normal peripheral perfusion Respiratory: Lungs clear to auscultation, respirations non labored Extremities: no deformity, no trauma, skin dry and flaky, resembling a callus Neurological: oriented x 4, level of consciousness appropriate for age, CN II-XII intact, motor strength equal & normal bilaterally, speech normal Abdomen: Soft, Non-tender, Non-distended, + Bowel sounds Assessment/Plan 1. Type 2 diabetes mellitus with hyperlipidemia (E11.69: Type 2 diabetes mellitus with other specified complication) Screen lipid profile periodically and advise on dietary measures to enhance lipid control. BS needs to be rechecked today. Ordered: A1c POC [id number] 2. Type 2 diabetes mellitus with peripheral vascular disease (E11.51: Type 2 diabetes mellitus with diabetic peripheral angiopathy without gangrene) Continued diabetes control is pertinent to mitigate associated vascular complications. Advise regular foot care due to noted skin issues. 3. 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 Continued monitoring and routine laboratory evaluations, including kidney function tests, are advised. 4. 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 5. Paroxysmal A-fib (I48.0: Paroxysmal atrial fibrillation) The condition is managed with medication; continue current regimen and monitor for recurrence or exacerbation. Continue on NOAC. 6. Type 2 diabetes mellitus with hyperglycemia (E11.65: Type 2 diabetes mellitus with hyperglycemia) Current diabetic management with sliding-scale insulin is employed. HbA1c and blood glucose to be monitored closely. Advise dietary management, with specific attention to high evening glucose levels. 7. Peripheral vascular disease (I73.9: Peripheral vascula (more content not included)... [facility] Comment on above: Result Comment: Elec tronically Signed By: Gilson Salgado MD\.br\Date and Time Signed: 03/05/24 11:37 EST Pre-Visit Planningon 025 Pre-Visit Planning Pre-Visit Planning - From: Tanya Mena To: Gilson Salgado MD; Sent: 03/02/2024 17:29:11 EST Subject: Pre-Visit Planning Due Date/Time: 03/02/2024 17:29:00 EST Caller Name: ZAIRA SEGURA III; Caller Number: H Tx Dr. Salgado. During a pre-visit planning chart review, I noted the following documentation in the medical record indicates this patient has been diagnosed as having: Open wound of LLE (Unspecified open wound, left lower leg, initial encounter). ??? The following is also documented in the medical record: 07/13/2023 [facility] ED Note (page 2): 08/08/2023 Office Visit Note: Open wound of left lower extremity (S81.802A: Unspecified open wound, left lower leg, initial encounter) - Wound is healing appropriately. No other issues at this time. Based on your medical judgment, can you please further validate the above diagnosis? -The above diagnosis is not supported by clinical indicators and is resolved. -The above diagnosis is supported by the following clinical indicators: -Other (please specify type of ulcer and stage of ulcer if applicable): In responding to this request, please exercise your independent professional judgment. The fact that a question is asked does not imply that any particular answer is desired or expected. If you have any questions, please feel free to contact me at extension [phone]. Thank you! Tanya Mena LPN Clinical [employer]ed [employer] Rep[employer]r [place] [address] Extension: [phone] [email or web address] - From: Gilson Salgado MD To: Tanya Mena; Cc: Danna WINCHESTER MD; Sent: 03/05/2024 07:55:44 EST Subject: RE: Pre-Visit Planning Caller Name: ZAIRA SEGURA III; Caller Number: H Since that was 6 months ago I cannot answer this question. Thanks No open wound. So this can be resolved. - From: Danna WINCHESTER MD To: Tanya Mena; Sent: 03/05/2024 16:21:32 EST Subject: RE: Pre-Visit Planning Caller Name: ZAIRA SEGURA III; Caller Number: H [facility] Ambulatory Visit Summaryon 1 02-17-2023 Ambulatory Visit Summary Ambulatory Visit Summary ZAIRA SEGURA III :1935 Visit Date:12/15/2023 Ambulatory Visit Instructions Your Diagnosis Encounter for subsequent annual wellness visit (AWV) in Medicare patient Chronic combined systolic (congestive) and diastolic (congestive) heart failure Paroxysmal A-fib Peripheral vascular disease Stage 3a chronic kidney disease (CKD), Chronic kidney disease, stage 3a Type 2 diabetes mellitus with stage 3a chronic kidney disease, with long-term current use of insulin 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 Long-term insulin use, shelter (current) use of insulin Type 2 diabetes mellitus with hyperglycemia, without long-term current use of insulin HTN (hypertension) Immunization declined Obesity due to excess calories Your Care Team Attending Physician - Gilson Salgado MD Primary Care Physician - Gilson Salgado MD This Is Your Medications List Misc Prescription (BD UF MAIDA PEN NEEDLE [id number]) Misc Prescription (Handicap Placard) Misc Prescription (Handicap Placard, 5 years.) [facility] Prescription ([place]) [facility] Prescription (pen needles) apixaban (Eliquis 5 mg oral tablet) atorvastatin (Lipitor 20 mg Tab) furosemide (furosemide 20 mg Tab) insulin glargine (Lantus Solostar Pen 100 units/mL subcutaneous solution) insulin lispro (HumaLOG KwikPen 100 units/mL injectable solution) isosorbide mononitrate (isosorbide mononitrate 30 mg ER Tab) losartan (losartan 50 mg Tab) metoprolol (Metoprolol tartrate 50 mg Tab) Procedures Performed Cardiac catheter (07/21/2022), Angioplasty, Cataract, Inguinal hernia, Stent, Surgery. Discharge Vitals Heart Rate (Peripheral) 56 Blood Pressure 126/60 Height 182 cm Height 72 in Weight 106.5 kg Weight 234.3 lb BMI 32.15 What to do next Scheduled Follow-Up Appointments 2024 1:00 PM EST With: Dipesh PABLO, Gilson Jackson Where: [address] [id number]- 2024 2:30 PM EST With: Where: [address] [id number]- Medications What How Much When Why Instructions Unchanged apixaban (Eliquis 5 mg oral tablet) 1 Tablets By Mouth 2 times a day Unchanged atorvastatin (Lipitor 20 mg Tab) 1 Tablets By Mouth Every day Unchanged furosemide (furosemide 20 mg Tab) PLEASE SEE ATTACHED FOR DETAILED DIRECTIONS Unchanged insulin glargine (Lantus Solostar Pen 100 units/ mL subcutaneous solution) See instructions INJECT 30 UNITS SUBCUTANEOUSLY TWICE A DAY Unchanged insulin lispro (HumaLOG KwikPen 100 units/ mL injectable solution) See instructions USE DIRECTED *MAX OF 10 UNITS/ DAY * BEFOR MEALS AND BEDTIME Unchanged isosorbide mononitrate (isosorbide mononitrate 30 mg ER Tab) TAKE 1 TABLET BY MOUTH EVERY MORNING. DO NOT CRUSH OR CHEW Unchanged losartan (losartan 50 mg Tab) See instructions TAKE 1/ 2 TABLET BY MOUTH TWICE A DAY Unchanged metoprolol (Metoprolol tartrate 50 mg Tab) 2 Tablets By Mouth 2 times a day Unchanged Misc Prescription (BD UF MAIDA PEN NEEDLE [id number]) USE 3 TIMES DAILY WITH INSULIN Unchanged Misc Prescription (Handicap Placard) See instructions Expires in 5 years Unchanged Misc Prescription (Handicap Placard, 5 years.) See instructions Weakness generalized Handicap Placard, 5 years. Unchanged Misc Prescription ([place]) See instructions To be used with giving insulin three times Dx: E11.9 Unchanged Misc Prescription (pen needles) See instructions BD UF maida pen needle 4mm x 32g E11.9 Allergies niacin (Unknown) Problems Ongoing - Any problem that you are currently receiving treatment for. 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 Atrial flutter Heart disease HTN - Hypertension Hypokalemia Kidney disease Overweight Type II diabetes mellitus uncontrolled Patient Survey You may receive a survey via text or e-mail asking about your office visit. Please share your experience with us by completing your survey. We appreciate your feedback and thank you for choosing us for your care. Education Materials Obesity, Adult Obesity is having too much body fat. Being obese means that your w (more content not included)... [facility] Family Medicine Office/Clini c Noteon 12-19-2023 Family Medicine Office/Clinic Note Family Medicine Office/Clinic Note Chief Complaint Subsequent Medicare Wellness History of Present Illness Covid-19, MERS, Ebola Screen *Contact With Person [...] Airborne, Droplet Precautions for MERS/COVID-19 : N/A Zeinab Rodriguez Henrietta - 12/15/2023 14:41 EST Medicare/Medicaid Summary Chief Complaint : Subsequent Medicare Wellness Patient Counseled : Nutrition, Physical activity, Elevated BMI Height/Length Measured : 182 cm(Converted to: 6 ft 0 in, 71.65 in) Weight Measured : 106.5 kg(Converted to: 234 lb 13 Ounces, 234.792 lb) Body Mass Index Measured : 32.15 kg/m2 Height in Inches : 72 in Weight in Pounds : 234.3 lb Systolic Blood Pressure : 126 mmHg Diastolic Blood Pressure : 60 mmHg Blood Pressure Location : Right arm Blood Pressure Position : Sitting O2 Sat Resting/Exertion Alpha : Resting Peripheral Pulse Rate : 56 bpm (LOW) SpO2 : 98 % Pain Present : No actual or suspected pain Numeric Rating Pain Score : 3 Zeinab Rodriguez Henri[place] - 12/15/2023 14:41 EST Hearing and Vision Screening FT FT Whisper Test Comments : slight hearing deficit in left ear. Has hearing aides, does not wear. Vision Screen Comments : no corrective lens. Zeinab Rodriguez Henri[place] - 12/15/2023 14:41 EST Advance Directive FT Advance Directive : Yes Type of Advance Directive : Living will, Medical durable power of activity leader Location of Advance Directive : Family to bring in copy from home Organ Donation Consent : No Raine Rodriguezron Shrestha - 12/15/2023 14:41 EST Procedures / Surgeries FT - Procedure History (As Of: 12/15/2023 15:00:07 EST) Anesthesia Minutes: 0 ; Procedure Name: Angioplasty ; Procedure Minutes: 0 ; Comments: 04/23/2022 11:38 Daxa Blevins Rt leg 2020 ; Last Reviewed Dt/Tm: 12/15/2023 14:45:01 EST Anesthesia Minutes: 0 ; Procedure Name: Stent ; Procedure Minutes: 0 ; Comments: 04/23/2022 11:38 Daxa Blevins Leg 2020 ; Last Reviewed Dt/Tm: 12/15/2023 14:45:01 EST Procedure Dt/Tm: 07/21/2022 ; Anesthesia Minutes: 0 ; Procedure Name: Cardiac catheter ; Procedure Minutes: 0 ; Last Reviewed Dt/Tm: 12/15/2023 14:45:01 EST Anesthesia Minutes: 0 ; Procedure Name: Surgery ; Procedure Minutes: 0 ; Comments: 04/23/2022 11:39 EDT - Daxa Hammer Rt foot for infection ; Last Reviewed Dt/Tm: 12/15/2023 14:45:01 EST Anesthesia Minutes: 0 ; Procedure Name: Inguinal hernia ; Procedure Minutes: 0 ; Last Reviewed Dt/Tm: 12/15/2023 14:45:01 EST Anesthesia Minutes: 0 ; Procedure Name: Cataract, both eyes ; Procedure Minutes: 0 ; Comments: 04/20/2023 7:56 EDT - Tricia Aguilera LPN summer 2022 ; Last Reviewed Dt/Tm: 12/15/2023 14:45:01 EST Family History Family History (As Of: 12/15/2023 15:00:07 EST) Unknown History Medicare/Medicaid Social History FT Social History (As Of: 12/15/2023 15:00:07 EST) Alcohol: Denies Alcohol Use Never, Household alcohol concerns: No. Comments: 12/15/2023 14:45 - Zeinab Rodriguez: denies use. 11/19/2022 8:54 - Shaun Adame: denies (Last Updated: 12/15/2023 14:45:28 EST by Zeinab Rodriguez) Tobacco: Denies Tobacco Use Never (less than 100 in lifetime) Tobacco Use:. Never Smokeless Tobacco Use:. Household tobacco concerns: No. Comments: 12/15/2023 14:45 - Zeinab Rodriguez: denies use. 11/19/2022 8:54 - Shaun Adame: denies (Last Updated: 12/15/2023 14:45:40 EST by Zeinab Rodriguez) Substance Abuse: Denies Substance Abuse Comments: 12/15/2023 14:45 - Zeinab Rodriguez: denies use. (Last Updated: 12/15/2023 14:45:52 EST by Zeinab Rodriguez) Health Risk Assessment FT HRA little interest or pleasure? : No HRA down, depressed, or hopeless? : No Hazards in your house? : No Fall Risk Past Year : No Worried About Falling : No Use a Cane or Walker? : Yes Someone Helps You in the Morning : No Fallen or felt dizzy standing up? : No Assistance with personal care? : No Trouble taking meds correctly? : No HRA Pain Present : Yes Primary Pain Location : Chest Numeric Rating Pain Scale : 3 Numeric Rating Pain Score : 3 Able to walk without help? : No Ability to shop w/out help : No Prepare your own meals? : Yes Housework without help? : Yes Handle money without help : Yes Track own medications without help? : Yes Overall mood for past four weeks : Pretty well General health rating : Good Someone avail. to help if needed? : Yes, some Phys. & emotional health limit social act? : Moderately Zeinab Rodriguez - 12/15/2023 14:41 EST Misc Health Risks Grid Sexual problems : Never Trouble eating well : Never Teeth or denture problems : Never Problems using the telephone : Never Zeinab Rodriguez - 12/15/2023 14:41 EST Confident (more content not included)... [facility] Comment on above: Result Comment: Elec tronically Signed By: Gilson Salgado MD\.br\Date and Time Signed: 12/19/23 13:18 EST\.br\Electronically Co-Signed By: Zeinab Rodriguez\.br\Date and Time Co-Signed: 12/15/23 15:44 EST Ambulatory Visit Summaryon 0 11-01-2023 Ambulatory Visit Summary Ambulatory Visit Summary ZAIRA SEGURA III :1935 Visit Date:11/01/2023 Ambulatory Visit Instructions Your Diagnosis HTN (hypertension) Stage 3a chronic kidney disease (CKD) Type 2 diabetes mellitus with hyperglycemia, without long-term current use of insulin BMI 32.0-32.9,adult Class 1 obesity due to excess calories in adult Nonsmoker Paroxysmal A-fib CAD in [place] artery Your Care Team Attending Physician - Gilson Salgado MD Primary Care Physician - Gilson Salgado MD This Is Your Medications List Contact prescribing physician if questions or concerns Misc Prescription (BD UF MAIDA PEN NEEDLE [id number]) Misc Prescription (Handicap Placard) Misc Prescription (Handicap Placard, 5 years.) Misc Prescription ([place]) Misc Prescription (pen needles) apixaban (Eliquis 5 mg oral tablet) atorvastatin (Lipitor 20 mg Tab) furosemide (furosemide 20 mg Tab) insulin glargine (Lantus Solostar Pen 100 units/mL subcutaneous solution) insulin lispro (HumaLOG KwikPen 100 units/mL injectable solution) isosorbide mononitrate (isosorbide mononitrate 30 mg ER Tab) losartan (losartan 50 mg Tab) metoprolol (Metoprolol tartrate 50 mg Tab) Procedures Performed Cardiac catheter (07/21/2022), Angioplasty, Cataract, Inguinal hernia, Stent, Surgery. Discharge Vitals Temperature (Temporal Artery) 36.5 ?C Heart Rate (Peripheral) 54 Respiratory Rate 16 Blood Pressure 104/62 Height 182 cm Height 72 in Weight 109.0 kg Weight 239.8 lb BMI 32.91 What to do next Scheduled Follow-Up Appointments Tuesday 1:00 PM EDT With: Where: [address] [address]24 1:00 PM EST With: Dipesh PABLO, Gilson Jackson Where: [address] [id number] Medications What How Much When Why Instructions Unchanged apixaban (Eliquis 5 mg oral tablet) 1 Tablets By Mouth 2 times a day Contact prescribing physician if questions or concerns Unchanged atorvastatin (Lipitor 20 mg Tab) 1 Tablets By Mouth Every day Contact prescribing physician if questions or concerns Unchanged furosemide (furosemide 20 mg Tab) PLEASE SEE ATTACHED FOR DETAILED DIRECTIONS Contact prescribing physician if questions or concerns Unchanged insulin glargine (Lantus Solostar Pen 100 units/ mL subcutaneous solution) See instructions INJECT 30 UNITS SUBCUTANEOUSLY TWICE A DAY Contact prescribing physician if questions or concerns Unchanged insulin lispro (HumaLOG KwikPen 100 units/ mL injectable solution) See instructions USE DIRECTED *MAX OF 10 UNITS/ DAY * BEFOR MEALS AND BEDTIME Contact prescribing physician if questions or concerns Unchanged isosorbide mononitrate (isosorbide mononitrate 30 mg ER Tab) TAKE 1 TABLET BY MOUTH EVERY MORNING. DO NOT CRUSH OR CHEW Contact prescribing physician if questions or concerns Unchanged losartan (losartan 50 mg Tab) See instructions TAKE 1/ 2 TABLET BY MOUTH TWICE A DAY Contact prescribing physician if questions or concerns Unchanged metoprolol (Metoprolol tartrate 50 mg Tab) 2 Tablets By Mouth 2 times a day Contact prescribing physician if questions or concerns Unchanged Misc Prescription (BD UF MAIDA PEN NEEDLE [id number]) USE 3 TIMES DAILY WITH INSULIN Contact prescribing physician if questions or concerns Unchanged Misc Prescription (Handicap Placard) See instructions Expires in 5 years Contact prescribing physician if questions or concerns Unchanged Misc Prescription (Handicap Placard, 5 years.) See instructions Weakness generalized Handicap Placard, 5 years. Contact prescribing physician if questions or concerns Unchanged Misc Prescription ([place]) See instructions To be used with giving insulin three times Dx: E11.9 Contact prescribing physician if questions or concerns Unchanged Misc Prescription (pen needles) See instructions BD UF maida pen needle 4mm x 32g E11.9 Contact prescribing physician if questions or concerns Allergies niacin (Unknown) Problems Ongoing - Any problem that you are currently receiving treatment for. 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 Atrial flutter Heart disease HTN - Hypertension (more content not included)... Normal [facility] Family Medicine Office/Clini c Noteon 11-01-2023 Family Medicine Office/Clinic Note Family Medicine Office/Clinic Note HPI Staff Zaira is an 88 year old male presenting for 3 month follow up CKD, HTN, DM Do you have any of the following symptoms? Foot Exam: done every 3 months Eye Exam: UTD Last A1C: Hgb A1C %: 8.6 % High (04/20/23 08:39:00) Statin: atorvastatin 20mg Patient is here for follow up on hypertension. How often are you checking your blood pressure? Daily What are your average readings? 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 See staff HPI for concerns. Review of Systems PHQ Score Initial Depression Screen Score: 0 SCORE Physical Exam Vitals & Measurements T: 36.5 ?C(Temporal Artery) HR: 54(Peripheral) RR: 16 BP: 104/62 SpO2: 98% HT: 72 in HT: 182 cm WT: 109.0 kg WT: 239.8 lb BMI: 32.91 General: alert, no acute distress ENMT: oral mucosa moist, Cardiovascular: regular rate and rhythm, normal peripheral perfusion Respiratory: Lungs CTA, respirations non labored Extremities: no deformity, no trauma Neurological: oriented x 4, LOC appropriate for age, CN II-XII intact, motor strength equal & normal bilaterally, speech normal Abdomen: Soft, Nontender, Non-distended, + BS Assessment/Plan 1. HTN (hypertension) (I10: Essential (primary) hypertension) - At goal. - No issues today. - Pt needs to discuss med changes with cardiology Ordered: Body Mass Index (BMI) documented 3008F Current tobacco non-user 1036F Depression Screening Negative 3352F Most recent diastolic blood pressure <80 mm Hg 3078F Patient screen for fall risk: no falls in last year or 1 fall with no injury in last year 1101F Systolic BP <130 mm Hg (Most Recent) 3074F 2. Stage 3a chronic kidney disease (CKD) (N18.31: Chronic kidney disease, stage 3a) - Stable. - Reviewed labs Ordered: Body Mass Index (BMI) documented 3008F Current tobacco non-user 1036F Depression Screening Negative 3352F Most recent diastolic blood pressure <80 mm Hg 3078F Patient screen for fall risk: no falls in last year or 1 fall with no injury in last year 1101F Systolic BP <130 mm Hg (Most Recent) 3074F 3. Type 2 diabetes mellitus with hyperglycemia, without long-term current use of insulin (E11.65: Type 2 diabetes mellitus with hyperglycemia) - Will check an A1c. - Pt is gaining weight. - Advised him to work on diet and exercise Ordered: Body Mass Index (BMI) documented 3008F Current tobacco non-user 1036F Depression Screening Negative 3352F Most recent diastolic blood pressure <80 mm Hg 3078F Patient screen for fall risk: no falls in last year or 1 fall with no injury in last year 1101F Systolic BP <130 mm Hg (Most Recent) 3074F 4. BMI 32.0-32.9,adult (Z68.32: Body mass index [BMI] 32.0-32.9, adult) BMI education added Ordered: Body Mass Index (BMI) documented 3008F Current tobacco non-user 1036F Depression Screening Negative 3352F Most recent diastolic blood pressure <80 mm Hg 3078F Patient screen for fall risk: no falls in last year or 1 fall with no injury in last year 1101F Systolic BP <130 mm Hg (Most Recent) 3074F 5. Class 1 obesity due to excess calories in adult (E66.09: Other obesity due to excess calories) Diet and exercise advised Ordered: Body Mass Index (BMI) documented 3008F Current tobacco non-user 1036F Depression Screening Negative 3352F Most recent diastolic blood pressure <80 mm Hg 3078F Patient screen for fall risk: no falls in last year or 1 fall with no injury in last year 1101F Systolic BP <130 mm Hg (Most Recent) 3074F 6. Nonsmoker (Z78.9: Other specified health status) Please continue not to smoke Ordered: Body Mass Index (BMI) documented 3008F Current tobacco non-user 1036F Depression Screening Negative 3352F Most recent diastolic blood pressure <80 mm Hg 3078F Patient screen for fall risk: no falls in last year or 1 fall with no injury in last year 1101F Systolic BP <130 mm Hg (Most Recent) 3074F 7. Paroxysmal A-fib (I48.0: Paroxysmal atrial fibrillation) - Sees cardiology - Lower HR, but BB has been increased. - Will not adjust at this time Ordered: Body Mass Index (BMI) documented 3008F Current tobacco non-user 1036F Depression Screening Negative 3352F Most recent diastolic blood pressure <80 mm Hg 3078F Patient screen for fall risk: no falls in last year or 1 fall with no injury in last year 1101F Systolic BP <130 mm Hg (Most Recent) 3074F 8. CAD in [place] artery (I25.10: Atherosclerotic heart disease of [place] coronary artery without angina pectoris) - NO CP today. Patient states the reason why they increased his metoprolol was because he was complaining of chest pain at night. Patient states it was when he was lying down. Patient denies acid reflux. I believe it may be acid reflux causing the chest pain. Advised the linh (more content not included)... Normal [facility] Comment on above: Result Comment: Elec tronically Signed By: Dipesh PABLO, Gilson Jackson\.br\Date and Time Signed: 11/01/23 14:24 EDT Office Visiton 09-20-2023 Follow-up visit [id number] Zaira Segura III 1935 M Date Provider Department Center 09/20/2023 [facility] Family History Problem Relation Age of Onset Other Father Heart failure Sister Family Status - Relation Status Age at Father Sister Level of Service:50365 [place] OFFICE/OUTPATIENT ESTABLISHED LOW MDM 20 MIN Normal [facility] Family Medicine Office/Clini c Noteon 08-08-2023 Family Medicine Office/Clinic Note Family Medicine Office/Clinic Note HPI Staff Zaira is an 88 year old male presenting for one month follow up open leg wound He took all abx. Took last one 07/29/23 He did bring a log of his sugar levels with him and B/P log History of Present Illness - See staff HPI. Review of Systems PHQ Score Initial Depression Screen Score: 0 SCORE Physical Exam Vitals & Measurements T: 37.5 ?C(Temporal Artery) HR: 64(Peripheral) RR: 18 BP: 122/78 SpO2: 94% HT: 72 in HT: 182 cm WT: 106.3 kg WT: 233.86 lb BMI: 32.09 General: alert, no acute distress ENMT: oral mucosa moist, Cardiovascular: normal peripheral perfusion Respiratory: respirations non labored Extremities: no deformity, no trauma, Wound looks to be healing well. NO erythema. Neurological: oriented x 4, LOC appropriate for age, CN II-XII intact, motor strength equal & normal bilaterally, speech normal Assessment/Plan 1. Chronic combined systolic (congestive) and diastolic (congestive) heart failure (I50.42: Chronic combined systolic (congestive) and diastolic (congestive) heart failure) - Now taking the lasix daily. - Helping greatly. - BPs are better 2. Open wound of left lower extremity (S81.802A: Unspecified open wound, left lower leg, initial encounter) - Wound is healing appropriately. - No other issues at this time. 3. Stage 3a chronic kidney disease (CKD) (N18.31: Chronic kidney disease, stage 3a) - Will check labs soon 4. HTN (hypertension) (I10: Essential (primary) hypertension) - At goal. - Continue as before 5. Type 2 diabetes mellitus with hyperglycemia, without long-term current use of insulin (E11.65: Type 2 diabetes mellitus with hyperglycemia) - Needs refill. - Pt states his BS is well controlled. 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 Medications BD UF MAIDA PEN NEEDLE [id number] Eliquis 5 mg oral tablet, 5 mg= 1 tab(s), Oral, BID, 1 refills Farxiga 5 mg oral tablet, 5 mg= 1 tab(s), Oral, Daily, 1 refills, Not taking furosemide 20 mg Tab Handicap Placard, See Instructions Handicap Placard, 5 years., See Instructions HumaLOG KwikPen 100 units/mL injectable solution, See Instructions isosorbide mononitrate 30 mg ER Tab, 30 mg= 1 tab(s), Oral, qAM isosorbide mononitrate 30 mg ER Tab, Not taking Lantus Solostar Pen 100 units/mL subcutaneous solution, See Instructions Lipitor 20 mg Tab, 20 mg= 1 tab(s), Oral, Daily losartan 50 mg Tab, See Instructions Metoprolol tartrate 50 mg Tab, 50 mg= 1 tab(s), Oral, BID pen needles, See Instructions, 2 refills Pen [place], See Instructions, 1 refills Allergies niacin (Unknown) Social History Alcohol - Denies Alcohol Use, 04/23/2022 Household alcohol concerns: No., 11/19/2022 Substance Abuse - Denies Substance Abuse, 04/23/2022 Tobacco - Denies Tobacco Use, 04/23/2022 Never (less than 100 in lifetime) Tobacco Use:. Never Smokeless Tobacco Use:. Household tobacco concerns: No., 07/25/2023 Family History Family history is unknown Immunizations Vaccine Date Status Comments influenza virus vaccine, inactivated - Not Given Patient Refuses pneumococcal 20-valent conjugate vaccine 01/04/2022 Recorded SARS-CoV-2 (COVID-19) [id number] 01/04/2022 Recorded SARS-CoV-2 (COVID-19) mRNA BNT-162b2 vax 12/08/2020 Recorded 2022-04-19: [id number] SARS-CoV-2 (COVID-19) mRNA BNT-162b2 vax 06/04/2020 Recorded SARS-CoV-2 (COVID-19) mRNA BNT-162b2 vax 05/14/2020 Recorded Normal [facility] Comment on above: Result Comment: Elec tronically Signed By: Gilson Salgado MD\.br\Date and Time Signed: 08/08/23 15:36 EDT Ambulatory Visit Summaryon 0 08-02-2023 Ambulatory Visit Summary ZAIRA SEGURA III :1935 Visit Date:08/02/2023 Ambulatory Visit Instructions Your Diagnosis Chronic combined systolic (congestive) and diastolic (congestive) heart failure Open wound of left lower extremity Stage 3a chronic kidney disease (CKD) HTN (hypertension) Type 2 diabetes mellitus with hyperglycemia, without long-term current use of insulin Your Care Team Attending Physician - Gilson Salgado MD Primary Care Physician - Gilson Salgado MD This Is Your Medications List insulin lispro (HumaLOG KwikPen 100 units/mL injectable solution) Contact prescribing physician if questions or concerns Misc Prescription (BD UF MAIDA PEN NEEDLE [id number]) Misc Prescription (Handicap Placard) Misc Prescription (Handicap Placard, 5 years.) Misc Prescription ([place]) Misc Prescription (pen needles) apixaban (Eliquis 5 mg oral tablet) atorvastatin (Lipitor 20 mg Tab) dapagliflozin (Farxiga 5 mg oral tablet) furosemide (furosemide 20 mg Tab) insulin glargine (Lantus Solostar Pen 100 units/mL subcutaneous solution) isosorbide mononitrate (isosorbide mononitrate 30 mg ER Tab) isosorbide mononitrate (isosorbide mononitrate 30 mg ER Tab) losartan (losartan 50 mg Tab) metoprolol (Metoprolol tartrate 50 mg Tab) Procedures Performed Cardiac catheter (07/21/2022), Angioplasty, Cataract, Inguinal hernia, Stent, Surgery. Discharge Vitals Temperature (Temporal Artery) 37.5 ?C Heart Rate (Peripheral) 64 Respiratory Rate 18 Blood Pressure 122/78 Height 182 cm Height 72 in Weight 106.3 kg Weight 233.86 lb BMI 32.09 What to do next Scheduled Follow-Up Appointments Tuesday 2:00 PM EDT With: Dipesh PABLO, Gilson Jackson Where: [facility] Normal [address] \.br\ Medications\.br\ What How Much When Why Instructions\.br \ Unchanged insulin lispro (HumaLOG KwikPen 100 units/ mL injectable solution) See instructions USE DIRECTED *MAX OF 10 UNITS/ DAY * BEFOR MEALS AND BEDTIME Pickup at [facility]/pharmacy #[id number]\.br\ Unchanged apixaban (Eliquis 5 mg oral tablet) 1 Tablets By Mouth 2 times a day Contact prescribing physician if questions or concerns \.br\ Unchanged atorvastatin (Lipitor 20 mg Tab) 1 Tablets By Mouth Every day Contact prescribing physician if questions or concerns \.br\ Unchanged dapagliflozin (Farxiga 5 mg oral tablet) 1 Tablets By Mouth Every day Contact prescribing physician if questions or concerns \.br\ Unchanged furosemide (furosemide 20 mg Tab) PLEASE SEE ATTACHED FOR DETAILED DIRECTIONS Contact prescribing physician if questions or concerns \.br\ Unchanged insulin glargine (Lantus Solostar Pen 100 units/ mL subcutaneous solution) See instructions INJECT 30 UNITS SUBCUTANEOUSLY TWICE A DAY Contact prescribing physician if questions or concerns \.br\ Unchanged isosorbide mononitrate (isosorbide mononitrate 30 mg ER Tab) TAKE 1 TABLET BY MOUTH EVERY MORNING. DO NOT CRUSH OR CHEW Contact prescribing physician if questions or concerns [...] Misc Prescription (BD UF MAIDA PEN NEEDLE [id number]) USE 3 TIMES DAILY WITH INSULIN Contact prescribing physician if questions or concerns \.br\ Unchanged Misc Prescription (Handicap Placard) See instructions Expires in 5 years Contact prescribing physician if questions or concerns \.br\ Unchanged Misc Prescription (Handicap Placard, 5 years.) See instructions Weakness generalized Handicap Placard, 5 years. Contact prescribing physician if questions or concerns \.br\ Unchanged Misc Prescription ([place]) See instructions To be used with giving insulin three times Dx: E11.9 Contact prescribing physician if questions or concerns \.br\ Unchanged Misc Prescription (pen needles) See instructions BD UF maida pen needle 4mm x 32g E11.9 Contact prescribing physician if questions or concerns \.br\ Pharmacy Information\.br\ [facility]/pharmacy #[id number]: [address], [place] [id number] [phone]\.br\ Allergies\.br\ niacin (Unknown)\.br\ Problems\.br\ Ongoing - Any problem that you are currently receiving treatment for.\.br\ CAD in [place] artery\.br\ Chronic combined systolic (congestive) and diastolic (congestive) heart failure\.br\ Chronic venous hypertension\.br \ HTN (hypertension)\. br\ Long-term insulin use\.br\ Mixed hyperlipidemia\. 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\.br\ Open wound of left lower extremity\.br\ Paroxysmal A-fib\.br\ Peripheral vascular disease\.br\ Stage 3a chronic kidney disease (CKD)\.br\ Type 2 diabetes mellitus with hyperglycemia, without long-term current use of insulin\.br\ Type 2 diabetes mellitus with stage 3a chronic kidney disease, with long-term current use of insulin\.br\ Vascular insufficiency\.b r\ Weakness generalized\.br\ Historical - Any problem that you are no longer receiving treatment for.\.br\ Atrial flutter\.br\ Heart disease\.br\ HTN - Hypertension\.br \ Hypokalemia\.br\ Kidney disease\.br\ Overweight\.br\ Type II diabetes mellitus uncontrolled\.br \ Patient Survey\.br\ You may receive a survey via text or e-mail asking about your office visit. Please share your experience with us by completing your survey. We appreciate your feedback and thank you for choosing us for your care.\.br\ \.br\ [facility] CHEMISTRYOrdered By: SYSTEM SYSTEM on 08-02-2023 Albumin [Mass/Vol] 4.0 g/dL Normal 3.3 - 5.0 gm/dL R emisol Chem Albumin/Globulin [Mass ratio] 1.3 {ratio} Normal 1.1 - 2.2 Remisol Chem ALP [Catalytic activity/Vol] 50 [iU]/d Normal 21 - 98 Int._Unit/L Remisol Chem ALT No additional P-5'-P [Catalytic activity/Vol] 17 [iU]/d Normal 6 - 46 Int._Unit/L Remisol Chem Anion gap [Moles/Vol] 9 mmol/L Normal 6 - 16 mEq/L R emisol Chem AST [Catalytic activity/Vol] 24 [iU]/d Normal 5 - 43 Int._Unit/L Remisol Chem Bilirubin [Mass/Vol] 0.9 mg/dL Normal 0.0 - 1.1 mg/dL Remisol Chem Calcium [Mass/Vol] 9.1 mg/dL Normal 8.9 - 11.1 mg/dL Remisol Chem Chloride [Moles/Vol] 105 mmol/L Normal 101 - 111 mmol/ L Remisol Chem CO2 [Moles/Vol] 32 mmol/L High 21 - 31 mmol/L Remis ol Chem Creatinine [Mass/Vol] 1.4 mg/dL High 0.5 - 1.3 mg/d L Remisol Chem eGFR 49 mL/min/1.73 m2 Low >=59mL/min /1.73 m2 Remisol Chem Globulin (S) [Mass/Vol] 3.0 g/dL Normal 1.4 - 4.0 gm/dL Remisol Chem Glucose [Mass/Vol] 61 mg/dL Normal 55 - 199 mg/dL Re misol Chem Potassium [Moles/Vol] 4.0 mmol/L Normal 3.5 - 5.3 mmol /L Remisol Chem Protein [Mass/Vol] 7.0 g/dL Normal 6.0 - 7.8 gm/dL R emisol Chem Sodium [Moles/Vol] 142 mmol/L Normal 135 - 145 mmol/L Remisol Chem Urea nitrogen [Mass/Vol] 28 mg/dL High 5 - 21 mg/dL Remisol Chem Urea nitrogen/Creatinine [Mass ratio] 20 mg/mg Normal 10 - 20 Remisol Chem CMPon 08-02-2023 Albumin [Mass/Vol] 4.0 g/dL Normal 3.3-5.0 [facility] Comment on above: Performed By: #### 2 [id number] #### [facility] [address] [place] [address] Albumin/Globulin (S) [Mass conc ratio] 1.3 Normal 1.1-2.2 [facility] Comment on above: Performed By: #### 2 [id number] #### [facility] [address] [place] [address] ALP [Catalytic activity/Vol] 50 Int._Unit/L Normal 21-98 [facility] Comment on above: Performed By: #### 2 [id number] #### [facility] [address] [place] [address] ALT No additional P-5'-P [Catalytic activity/Vol] 17 Int._Unit/L Normal 6-46 [facility] Comment on above: Performed By: #### 2 [id number] #### [facility] [address] [place] [address] Anion gap [Moles/Vol] 9 mmol/L Normal 6-16 [facility] Comment on above: Performed By: #### 2 [id number] #### [facility] [address] [place] [address] AST [Catalytic activity/Vol] 24 Int._Unit/L Normal 5-43 [facility] Comment on above: Performed By: #### 2 [id number] #### [facility] [address] [place] [address] Bilirubin [Mass/Vol] 0.9 mg/dL Normal 0.0-1.1 [place] Comment on above: Performed By: #### 2 [id number] #### [facility] [address] [place] [address] Calcium [Mass/Vol] 9.1 mg/dL Normal 8.9-11.1 [facility] Comment on above: Performed By: #### 2 [id number] #### [facility] [address] [place] [address] Chloride [Moles/Vol] 105 mmol/L Normal 101-111 [place] Comment on above: Performed By: #### 2 [id number] #### [facility] [address] [place] [address] CO2 [Moles/Vol] 32 mmol/L High 21-31 [facility] Comment on above: Performed By: #### 2 [id number] #### [facility] [address] [place] [address] Creatinine [Mass/Vol] 1.4 mg/dL High 0.5-1.3 [facility] Comment on above: Performed By: #### 2 [id number] #### [facility] [address] [place] [address] Globulin (S) [Mass/Vol] 3.0 g/dL Normal 1.4-4.0 [facility] Comment on above: Performed By: #### 2 [id number] #### [facility] [address] [place] [address] Glucose [Mass/Vol] 61 mg/dL Normal 55-199 [facility] Comment on above: Performed By: #### 2 [id number] #### [facility] [address] [place] [address] Potassium [Moles/Vol] 4.0 mmol/L Normal 3.5-5.3 [facility] Comment on above: Performed By: #### 2 [id number] #### [facility] [address] [place] [address] Protein [Mass/Vol] 7.0 g/dL Normal 6.0-7.8 [facility] Comment on above: Performed By: #### 2 [id number] #### [facility] [address] [place] [address] Sodium [Moles/Vol] 142 mmol/L Normal 135-145 [facility] Comment on above: Performed By: #### 2 [id number] #### [facility] [address] [place] [address] Urea nitrogen [Mass/Vol] 28 mg/dL High 5-21 [facility] Comment on above: Performed By: #### 2 [id number] #### [facility] [address] [place] [address] Urea nitrogen/Creatinine [Mass ratio] 20 No Units Normal 10-20 [facility] Comment on above: Performed By: #### 2 [id number] #### [facility] [address] [place] [address] Ambulatory Visit Summaryon 0 07-25-2023 Ambulatory Visit Summary ZAIRA SEGURA III :1935 Visit Date:07/25/2023 Ambulatory Visit Instructions Your Diagnosis Open wound of left lower extremity, subsequent encounter Chronic combined systolic (congestive) and diastolic (congestive) heart failure Type 2 diabetes mellitus with stage 3a chronic kidney disease, with long-term current use of insulin shelter (current) use of insulin BMI 33.0-33.9,adult Class 1 obesity due to excess calories in adult Nonsmoker Your Care Team Attending Physician - Gilson Salgado MD Primary Care Physician - Gilson Salgado MD This Is Your Medications List Misc Prescription (BD UF MAIDA PEN NEEDLE [id number]) Misc Prescription (Handicap Placard) Misc Prescription (Handicap Placard, 5 years.) Misc Prescription ([place]) Misc Prescription (pen needles) apixaban (Eliquis 5 mg oral tablet) atorvastatin (Lipitor 20 mg Tab) dapagliflozin (Farxiga 5 mg oral tablet) furosemide (furosemide 20 mg Tab) insulin glargine (Lantus Solostar Pen 100 units/mL subcutaneous solution) insulin lispro (HumaLOG KwikPen 100 units/mL injectable solution) isosorbide mononitrate (isosorbide mononitrate 30 mg ER Tab) isosorbide mononitrate (isosorbide mononitrate 30 mg ER Tab) losartan (losartan 50 mg Tab) metoprolol (Metoprolol tartrate 50 mg Tab) Procedures Performed Cardiac catheter (07/21/2022), Angioplasty, Cataract, Inguinal hernia, Stent, Surgery. Discharge Vitals Temperature (Oral) 36.8 ?C Heart Rate (Peripheral) 60 Respiratory Rate 16 Blood Pressure 124/76 Height 180 cm Height 71 in Weight 108.0 kg Weight 237.6 lb BMI 33.33 What to do next Scheduled Follow-Up Appointments Tuesday 10:00 AM EDT With: Dipesh PABLO, Gilson Jackson Where: [place] [id number] \.br\ Medications\.br\ What How Much When Why Instructions\.br \ Unchanged apixaban (Eliquis 5 mg oral tablet) 1 Tablets By Mouth 2 times a day\.br\ Unchanged atorvastatin (Lipitor 20 mg Tab) 1 Tablets By Mouth Every day\.br\ Unchanged dapagliflozin (Farxiga 5 mg oral tablet) 1 Tablets By Mouth Every day\.br\ Unchanged furosemide (furosemide 20 mg Tab) PLEASE SEE ATTACHED FOR DETAILED DIRECTIONS \.br\ Unchanged insulin glargine (Lantus Solostar Pen 100 units/ mL subcutaneous solution) See instructions INJECT 30 UNITS SUBCUTANEOUSLY TWICE A DAY \.br\ Unchanged insulin lispro (HumaLOG KwikPen 100 units/ mL injectable solution) See instructions USE DIRECTED *MAX OF 10 UNITS/ DAY * BEFOR MEALS AND BEDTIME \.br\ Unchanged isosorbide mononitrate (isosorbide mononitrate 30 mg ER Tab) TAKE 1 TABLET BY MOUTH EVERY MORNING. DO NOT CRUSH OR CHEW \.br\ Unchanged isosorbide mononitrate (isosorbide mononitrate 30 mg ER Tab) 1 Tablets By Mouth Once a day (in the morning)\.br\ Unchanged losartan (losartan 50 mg Tab) See instructions TAKE 1 TABLET BY MOUTH TWICE A DAY \.br\ Unchanged metoprolol (Metoprolol tartrate 50 mg Tab) 1 Tablets By Mouth 2 times a day\.br\ Unchanged Misc Prescription (BD UF MAIDA PEN NEEDLE 5NSO55L) USE 3 TIMES DAILY WITH INSULIN \.br\ Unchanged Misc Prescription (Handicap Placard) See instructions Expires in 5 years \.br\ Unchanged Misc Prescription (Handicap Placard, 5 years.) See instructions Weakness generalized Handicap Placard, 5 years. \.br\ Unchanged Misc Prescription ([place]) See instructions To be used with giving insulin three times Dx: E11.9 \.br\ Unchanged Misc Prescription (pen needles) See instructions BD UF maida pen needle 4mm x 32g E11.9 \.br\ Allergies\.br\ niacin (Unknown)\.br\ Problems\.br\ Ongoing - Any problem that you are currently receiving treatment for.\.br\ CAD in [place] artery\.br\ Chronic combined systolic (congestive) and diastolic (congestive) heart failure\.br\ Chronic venous hypertension\.br \ HTN (hypertension)\. br\ Long-term insulin use\.br\ Mixed hyperlipidemia\. 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\.br\ Open wound of left lower extremity\.br\ Paroxysmal A-fib\.br\ Peripheral vascular disease\.br\ Stage 3a chronic kidney disease (CKD)\.br\ Type 2 diabetes mellitus with hyperglycemia, without long-term current use of insulin\.br\ Type 2 diabetes mellitus with stage 3a chronic kidney disease, with long-term current use of insulin\.br\ Vascular insufficiency\.b r\ Weakness generalized\.br\ Historical - Any problem that you are no longer receiving treatment for.\.br\ Atrial flutter\.br\ Heart disease\.br\ HTN - Hypertension\.br \ Hypokalemia\.br\ Kidney disease\.br\ Overweight\.br\ Type II diabetes mellitus uncontrolled\.br \ Patient Survey\.br\ You may receive a survey via text or e-mail asking about your office visit. Please share your experience with us by completing your survey. We appreciate your feedback and thank you for choosing us for your care.\.br\ \.br\ [facility] Family Medicine Office/Clini c Noteon 07-25-2023 Family Medicine Office/Clinic Note HPI Staff Zaira is an 88 year old male presenting for face to face for home health for dressing changes. [facility] [phone] Had a paramed visit and he wasn't happy with that situation, they can't come daily and he wants someone there daily for this. questions/concerns: stopped his farxiga 3 days ago and doesn't want to take it anymore' Needs to know how often he should take his furosemide Does he need more antbs for his leg wound and Does he still need to use the bacitracin ointment History of Present Illness - Here for follow up. Wants a F2F for home health to do wound management. Review of Systems PHQ Score Initial Depression Screen Score: 0 SCORE Physical Exam Vitals & Measurements T: 36.8 ?C(Oral) HR: 60(Peripheral) RR: 16 BP: 124/76 SpO2: 96% HT: 71 in HT: 180 cm WT: 108.0 kg WT: 237.6 lb BMI: 33.33 General: alert, no acute distress ENMT: oral mucosa moist, Cardiovascular: regular rate and rhythm, normal peripheral perfusion Respiratory: Lungs CTA, respirations non labored Extremities: no deformity, no trauma, Small ruptured blister noted on the patient's L lower extremity with 1+ pitting edema. Neurological: oriented x 4, LOC appropriate for age, CN II-XII intact, motor strength equal & normal bilaterally, speech normal Abdomen: Soft, Nontender, Non-distended, + BS Assessment/Plan 1. Open wound of left lower extremity, subsequent encounter (S81.802D: Unspecified open wound, left lower leg, subsequent encounter) - Improving. - Continue to place the Abx topical on the area. - Keep wrapped Ordered: Ambulatory Home Health Orders Body Mass Index (BMI) documented 3008F Current tobacco non-user 1036F Depression Screening Negative 3352F Most recent diastolic blood pressure <80 mm Hg 3078F Patient screen for fall risk: no falls in last year or 1 fall with no injury in last year 1101F Systolic BP <130 mm Hg (Most Recent) 3074F 2. Chronic combined systolic (congestive) and diastolic (congestive) heart failure (I50.42: Chronic combined systolic (congestive) and diastolic (congestive) heart failure) - Unsure what his lasix are suppose to be - Reviewed the meds. - No directions on the bottle. - Pt needs to follow up with cardiology Ordered: Ambulatory Home Health Orders Body Mass Index (BMI) documented 3008F Current tobacco non-user 1036F Depression Screening Negative 3352F Most recent diastolic blood pressure <80 mm Hg 3078F Patient screen for fall risk: no falls in last year or 1 fall with no injury in last year 1101F Systolic BP <130 mm Hg (Most Recent) 3074F 3. Type 2 diabetes mellitus with stage 3a chronic kidney disease, with long-term current use of insulin (E11.22: Type 2 diabetes mellitus with diabetic chronic kidney disease) - I do not want him off his farxiga, but patient is noncompliant Ordered: Ambulatory Home Health Orders 4. 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 Ordered: Ambulatory Home Health Orders 5. BMI 33.0-33.9,adult (Z68.33: Body mass index [BMI] 33.0-33.9, adult) - BMI education uploaded Ordered: Ambulatory Home Health Orders Body Mass Index (BMI) documented 3008F Current tobacco non-user 1036F Depression Screening Negative 3352F Most recent diastolic blood pressure <80 mm Hg 3078F Patient screen for fall risk: no falls in last year or 1 fall with no injury in last year 1101F Systolic BP <130 mm Hg (Most Recent) 3074F 6. Class 1 obesity due to excess calories in adult (E66.09: Other obesity due to excess calories) - Diet and exercise advised Ordered: Body Mass Index (BMI) documented 3008F Current tobacco non-user 1036F Depression Screening Negative 3352F Most recent diastolic blood pressure <80 mm Hg 3078F Patient screen for fall risk: no falls in last year or 1 fall with no injury in last year 1101F Systolic BP <130 mm Hg (Most Recent) 3074F 7. Nonsmoker (Z78.9: Other specified health status) - Please continue to not smoke Ordered: Body Mass Index (BMI) documented 3008F Current tobacco non-user 1036F Depression Screening Negative 3352F Most recent diastolic blood pressure <80 mm Hg 3078F Patient screen for fall risk: no falls in last year or 1 fall with no injury in last year 1101F Systolic BP <130 mm Hg (Most Recent) 3074F - Discussed the patients abusive nature with the staff. Pt needs to be more respectful as I will ask [facility] to discharge the patient. Pt is aware and rolled his eyes. I removed the patient from by practice over 2 years ago for the same behavior. 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 Normal [facility] Comment on above: Result Comment: Elec tronically Signed By: Dipesh PABLO, Gilson Jackson\.br\Date and Time Signed: 07/25/23 14:46 EDT ED Note-Physicianon 07-21-19 ED Note-Physician [id number]# 1.00TIFF [facility] Physician Referralon 024 Physician Referral [id number]#1.00TIFF [facility] Family Medicine Office/Clini c Noteon 07-19-2023 Family Medicine Office/Clinic Note Chief Complaint wound HPI Staff Zaira is a 88 year old male presenting for Er follow up ER followup: Hospital: [facility] Visit date:07/13/23 Symptoms the patient presented with:wound/laceratio n- dressing change- had maggots on wound, took dressing off after 4 days Symptom onset/injury onset: wound started 1 week ago New medications: Cephalexin 500mg 3 times daily for 10 days New specialist involved: follow up with wound care Current concerns: Pt needs HH to come in and change bandage I have reviewed and verified the staff HPI to be accurate for this encounter. History of Present Illness Patient of Dr. Salgado presents today with his nephew in f/u for ED visit on 07/12/2023 for an open water blister. He states he had the area on the LLE for a while and he had covered it with a bandage and then 4 days later when he uncovered it there were maggots at the bottom of the wound. He went to [facility] ED because of this. He reports he was given an antibiotic and was told to put some jimmy on it but he is not sure what that is. He reports he needs help with changing the dressing and wants an order for HH to do the dressing changes. Review of Systems PHQ Score Initial Depression Screen Score: 0 SCORE Constitutional: no fever, no chills, no sweats, no weakness Skin: no Jaundice, no rash, moderate lesions, nopetechiae Respiratory: no shortness of breath, no cough, no orthopnea, no wheezing Cardiovascular: no chest pain, no palpitations, no edema Musculoskeletal: no back pain, no trauma Neurologic: no headache, no dizziness, no numbness, no weakness Psychiatric: no sleeping problems, no irritability, no mood swings/depression. Additional ROS info: Except as noted in the above Review of Systems and in the History of Present Illness all other systems have been reviewed and are negative or noncontributory. Physical Exam Vitals & Measurements HR: 56(Peripheral) BP: 114/70 SpO2: 97% HT: 71 in HT: 180 cm WT: 107.9 kg WT: 237.38 lb BMI: 33.3 General: alert, no acute distress Skin: warm, dry; LLE- circular, erythematous, area, serous drainage Head: no trauma, normocephalic Neck: Trachea midline, no adenopathy, no tenderness Eye: normal conjunctiva, sclera clear Cardiovascular: regular rate and rhythm, normal peripheral perfusion Respiratory: Lungs CTA, respirations non labored Extremities: no deformity, no trauma; LLE,anterior- circular, minor drainage Neurological: oriented x 4, LOC appropriate for age speech normal Psychiatric: cooperative, affect appropriate for age, normal judgement, normal psychiatric thoughts. Assessment/Plan 1. Open leg wound (S81.809A: Unspecified open wound, unspecified lower leg, initial encounter) Area cleansed with saline and WARREN applied and covered with a dry dressing Referral to HH for dressing changes completed Encouraged to f/u with Dr Salgado for questions about his diabetic medications Continue the ATB as ordered by the ED. Encouraged to keep the appointment as scheduled with Dr. Salgado Ordered: [facility] [place] External Ambulatory Referral 2. BMI 33.0-33.9,adult (Z68.33: Body mass index [BMI] 33.0-33.9, adult) The standard range for ages 18 and older is >=18.5 and < 25 kg/m2. Your BMI today was above this range, this falls in the overweight to obese category and there are medical benefits to weight loss. We can offer counselling, referral, and/or medical support in addressing this problem. Your BMI and weight management will be followed at subsequent visits. Ordered: Body Mass Index (BMI) documented 3008F Current tobacco non-user 1036F Depression Screening Negative 3352F Influenza immunization status assessed 1030F Most recent diastolic blood pressure <80 mm Hg 3078F Patient screen for fall risk: no falls in last year or 1 fall with no injury in last year 1101F Systolic BP <130 mm Hg (Most Recent) 3074F 3. 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 Medications BD UF MAIDA PEN NEEDLE [id number] cephalexin 500 mg Cap Eliqui (more content not included)... Normal [facility] Comment on above: Result Comment: Elec tronically Signed By: GIRISH BECKER CNP\.br\Date and Time Signed: 07/19/23 11:24 EDT Patient Educationon 07-19-19 24 Patient Education Dermatology Wound Care, Adult Taking care of your wound properly can help to prevent pain, infection, and scarring. It can also help your wound heal more quickly. Follow instructions from your health care provider about how to care for your wound. Supplies needed: ? Soap and water. ? Wound cleanser, saline, or germ-free (sterile) water. ? Gauze. ? If needed, a clean bandage (dressing) or other type of wound dressing material to cover or place in the wound. Follow your health care provider's instructions about what dressing supplies to use. ? Cream or topical ointment to apply to the wound, if told by your health care provider. How to care for your wound Cleaning the wound Ask your health care provider how to clean the wound. This may include: ? Using mild soap and water, a wound cleanser, saline, or sterile water. ? Using a clean gauze to pat the wound dry after cleaning it. Do not rub or scrub the wound. Dressing care ? Wash your hands with soap and water for at least 20 seconds before and after you change the dressing. If soap and water are not available, use hand enterprise manager. ? Change your dressing as told by your health care provider. This may include: ? Cleaning or rinsing out (irrigating) the wound. ? Application of cream or topical ointment, if told by your health care provider. ? Placing a dressing over the wound or in the wound (packing). ? Covering the wound with an outer dressing. ? Leave stitches (sutures), pierce, skin glue, or adhesive strips in place. These skin closures may need to stay in place for 2 weeks or longer. If adhesive strip edges start to loosen and curl up, you may trim the loose edges. Do not remove adhesive strips completely unless your health care provider tells you to do that. ? Ask your health care provider when you can leave the wound uncovered. Checking for infection Check your wound area every day for signs of infection. Check for: ? More redness, swelling, or pain. ? Fluid or blood. ? Warmth. ? Pus or a bad smell. Follow these instructions at home Medicines ? If you were prescribed an antibiotic medicine, cream, or ointment, take or apply it as told by your health care provider. Do not stop using the antibiotic even if your condition improves. ? If you were prescribed pain medicine, take it 30 minutes before you do any wound care or as told by your health care provider. ? Take htui-llo-idiytgf and prescription medicines only as told by your health care provider. Eating and drinking ? Eat a diet that includes protein, vitamin A, vitamin C, and other nutrient-rich foods to help the wound heal. ? Foods rich in protein include meat, fish, eggs, dairy, beans, and nuts. ? Foods rich in vitamin A include carrots and dark green, leafy vegetables. ? Foods rich in vitamin C include citrus fruits, tomatoes, broccoli, and peppers. ? Drink enough fluid to keep your urine pale yellow. General instructions ? Do not take baths, swim, or use a hot tub until your health care provider approves. Ask your health care provider if you may take showers. You may only be allowed to take sponge baths. ? Do not scratch or pick at the wound. Keep it covered as told by your health care provider. ? Return to your normal activities as told by your health care provider. Ask your health care provider what activities are safe for you. ? Protect your wound from the sun when you are outside for the first 6 months, or for as long as told by your health care provider. Cover up the scar area or apply sunscreen that has an SPF of at least 30. ? Do not use any products that contain nicotine or tobacco. These products include cigarettes, chewing tobacco, and vaping devices, such as e-cigarettes. If you need help quitting, ask your health care provider. ? Keep all follow-up visits. This is important. Contact a health care provider if: ? You received a tetanus shot and you have swelling, severe pain, redness, or bleeding at the injection site. ? Your pain is not controlled with medicine. ? You have any of these signs of infection: ? More redness, swelling, or pain around the wound. ? Fluid or blood coming from the wound. ? Warmth coming from the wound. ? A fever or chills. ? You are nauseous or you vomit. ? You are dizzy. ? You have a new rash or hardness around the wound. Get help right away if: ? You have a red streak of skin near the area around your wound. ? Pus or a bad smell coming from the wound. ? Your wound has been closed with pierce, sutures, skin glue, or adhesive strips and it begins to open up and separate. ? Your wound is bleeding, and the bleeding does not stop with gentle pressure. These symptoms may represent a serious problem that is an emergency. Do not wait to see if the symptoms will go away. Get medical help right away. Call your local emergency services (911 in the [place] Do not drive yourself to the hospital. Summary ? [place] (more content not included)... Normal [facility] 36on 06-23-2023 36 [facility] lab called with critical glucose of 47. I spoke with 2 of patient's sisters (emergency contacts). Patient was not home to answer his phone and does not have a cell phone. Both sisters told me their nephew was taking Zaira out to eat after he left here. Normal [facility] Office Visiton 06-23-2023 Follow-up visit [id number] Zaira Segura III 1935 M Date Provider Department Center 06/23/2023 DAGOBERTO MARCH Family History Problem Relation Age of Onset Other Father Heart failure Sister Family Status - Relation Status Age at Father Sister Level of Service:[address] [place] OFFICE/OUTPATIENT ESTABLISHED MOD MDM 30 MIN Reason for Visit and Comments: Atrial Fibrillation [80] Coronary Artery Disease [187] Congestive Heart Failure [127] Hypertension [256284] Normal [facility] Office Visiton 06-02-2023 Follow-up visit [id number] Zaira Segura III 1935 M Date Provider Department Center 06/02/2023 DAGOBERTO MARCH Family History Problem Relation Age of Onset Other Father Heart failure Sister Family Status - Relation Status Age at Father Sister Level of Service:[address]17 [place] OFFICE/OUTPATIENT ESTABLISHED MOD MDM 30 MIN Reason for Visit and Comments: Atrial Fibrillation [80] Congestive Heart Failure [127] Coronary Artery Disease [187] Hypertension [350004] [facility] Ambulatory Visit Summaryon 0 05-02-2023 Ambulatory Visit Summary ZAIRA SEGURA III :1935 Visit Date:05/02/2023 Ambulatory Visit Instructions Your Diagnosis BMI 33.0-33.9,adult Your Care Team Attending Physician - Gilson Salgado MD Primary Care Physician - Gilson Salgado MD This Is Your Medications List Misc Prescription (BD UF MAIDA PEN NEEDLE [id number]) Misc Prescription (Handicap Placard) Misc Prescription (Handicap Placard, 5 years.) Misc Prescription ([place]) Misc Prescription (pen needles) apixaban (Eliquis 5 [...] EDT With: Dipesh PABLO, Gilson Jackson Where: [address] \.br\ Medications\.br\ What How Much When Why Instructions\.br \ Unchanged apixaban (Eliquis 5 mg oral tablet) [...] Misc Prescription (BD UF MAIDA PEN NEEDLE [id number]) USE 3 TIMES DAILY WITH INSULIN \.br\ Unchanged Misc Prescription (Handicap Placard) See instructions Expires in 5 years \.br\ Unchanged Misc Prescription (Handicap Placard, 5 years.) See instructions Weakness generalized Handicap Placard, 5 years. \.br\ Unchanged Misc Prescription (pen needles) See instructions BD UF maida pen needle 4mm x 32g E11.9 \.br\ Unchanged Misc Prescription ([place]) See instructions To be used with giving insulin three times Dx: E11.9 \.br\ Allergies\.br\ niacin (Unknown)\.br\ Problems\.br\ Ongoing - Any problem that you are currently receiving treatment for.\.br\ CAD in [place] artery\.br\ Chronic venous hypertension\.br \ HTN (hypertension)\. br\ Long-term insulin use\.br\ Mixed hyperlipidemia\. 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 Please share your experience with us by completing your survey. 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 Patient [...] Will monitor 3. 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 Medications BD UF MAIDA PEN NEEDLE [id number] Eliquis 5 mg oral tablet, 5 mg= [...] pen needles, See Instructions, 1 refills [place], See Instructions, 1 refills Allergies niacin (Unknown) [...] 20-valent conjugate vaccine 01/04/2022 Recorded SARS-CoV-2 (COVID-19) [id number] 01/04/2022 Recorded SARS-CoV-2 (COVID-19) mRNA BNT-162b2 vax 12/08/2020 Recorded 2022-04-19: [id number] SARS-CoV-2 (COVID-19) mRNA BNT-162b2 vax 06/04/2020 Recorded SARS-CoV-2 (COVID-19) mRNA BNT-162b2 vax 05/14/2020 Recorded Normal [facility] Comment on above: Result Comment: Elec tronically Signed By: Dipesh PABLO, Gilson Russo.br\Date and Time Signed: 05/02/23 11:53 EDT Patient Educationon 05-02-19 Patient Education Nutrition BMI for Adults What [...] numbers. This can be done either in [place] ([place] or metric measurements. Note that charts and online BMI calculators are available to help you find your BMI quickly and easily without having to do these calculations yourself. To calculate your BMI in [place] ([place] measurements: 1. Measure your weight in [...] for Disease Control and Prevention: www.cdc.gov ? [place] [employer]: www.heart.org ? National Heart, Lung, and Blood [place]: www.nhlbi.nih.gov Summary ? Body mass index (BMI) is a number that is calculated from a person's weight and height. ? BMI may help estimate how much of a person's weight is composed of fat. BMI can help identify those who may be at higher risk for certain medical problems. ? BMI can be measured using [place] measurements or metric measurements. ? BMI charts are used to identify whether you are underweight, normal weight, overweight, or obese. This information is not intended to replace advice given to you by your health care provider. Make sure you discuss any questions you have with your health care provider. Document Revised: 10/17/2019 Document Reviewed: 08/24/2019 Elsevier Patient Education ? 2022 [employer] [facility] Pre-Visit Planningon 024 Pre-Visit Planning - From: Tanya Mena To: Gilson Salgado MD; Sent: 04/29/2023 11:00:44 EDT Subject: Pre-Visit Planning Due Date/Time: 04/29/2023 11:00:00 EDT Caller Name: ZAIRA SEGURA III; Caller Number: H Tx Dr. Salgado. During a pre-visit planning chart review, I noted the following documentation in the medical record: Current Problem List: CAD in [place] artery (Atherosclerotic heart disease of [place] coronary artery without angina pectoris), Chronic venous [...] feel free to contact me at extension [phone]. Thank you! Tanya Mena LPN - From: Gilson Salgado MD To: Tanya Mena; Sent: 05/02/2023 12:26:37 EDT Subject: RE: Pre-Visit Planning Caller Name: ZAIRA SEGURA III; Caller Number: H Chronic combined systolic (congestive) and diastolic (congestive) heart failure Please add Normal [address] [facility] YwzR9vma 04-21-2023 HbA1c (Bld) [Mass fraction] 8.6 % High <=5.9 [facility] Comment on above: Performed By: #### 2 025136, 0132028, [id number], 92552841, 2464552 ####[facility] [address] [place] [address] U Microalbon 04-21-2023 Albumin DL <= 20 mg/L (U) [Mass/Vol] 5.1 mg/dL High 0.0-1.9 [facility] Comment on above: Performed By: #### 1 [id number], [id number] ####[facility] [address] [place] [address] U Protein/Creat Ratioon 04-07 Protein/Creatinine (U) [Ratio] 24.80 mg/gm Cr Normal .00-200.00 [facility] Comment on above: Performed By: #### 1 [id number], [id number] ####[facility] [address] [place] [address] U Creatinine 58.4 mg/dL Invalid Interpretation Code [facility] Comment on above: Performed By: #### 1 [id number], [id number] ####[facility] [address] [place] [address] Ur Total Protein 14.5 mg/dL Invalid Interpretation Code [facility] Comment on above: Performed By: #### 1 [id number], [id number] ####[facility] [address] [place] [address] Ambulatory Visit Summaryon 0 04-20-2023 Ambulatory Visit [...] Misc Prescription (BD UF MAIDA PEN NEEDLE [id number]) Misc Prescription (Handicap Placard) Misc Prescription (Handicap Placard, 5 years.) Misc Prescription ([place]) Misc Prescription (pen needles) apixaban (Eliquis 5 [...] AM EDT With: Gilson Salgado MD Where: [place] [address]- \.br\ Medications\.br\ What How Much When Why Instructions\.br \ Unchanged apixaban (Eliquis 5 mg oral tablet) [...] Misc Prescription (BD UF MAIDA PEN NEEDLE [id number]) USE 3 TIMES DAILY WITH INSULIN Contact [...] or concerns \.br\ Unchanged Misc Prescription ([place]) See instructions To be used with giving insulin three times Dx: E11.9 Contact prescribing physician if questions or concerns \.br\ Allergies\.br\ niacin (Unknown)\.br\ Problems\.br\ Ongoing - Any problem that you are currently receiving treatment for.\.br\ CAD in [place] artery\.br\ Chronic venous hypertension\.br \ HTN (hypertension)\. br\ Long-term insulin use\.br\ Mixed hyperlipidemia\. 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\.br\ Paroxysmal A-fib\.br\ Peripheral vascular disease\.br\ Type 2 diabetes mellitus with hyperglycemia, without long-term current use of insulin\.br\ Vascular insufficiency\.b r\ Weakness generalized\.br\ Historical - Any problem that you are no longer receiving treatment for.\.br\ Atrial flutter\.br\ Heart disease\.br\ HTN - Hypertension\.br \ Hypokalemia\.br\ Kidney disease\.br\ Overweight\.br\ Type II diabetes mellitus uncontrolled\.br \ Patient Survey\.br\ You may receive a survey [...] body fat, which can be difficult and expensive.\.br\ BMI can help identify people who may be at higher risk for certain medical problems.\.br\ What are BMI measurements used for?\.br\ BMI is used as a screening tool to identify possible weight problems. It helps determine whether a person is obese, overweight, a healthy weight, or underweight.\.br \ BMI is useful for:\.br\ ? \.br\ Identifying a weight problem that may be related to a medical condition or may increase the risk for medical problems.\.br\ ? \.br\ Promoting changes, such as changes in diet and exercise, to help reach a healthy weight. BMI screening can be repeated to see if these changes are working.\.br\ How is BMI calculated?\.br\ BMI involves measuring your weight in relation to your height. Both height and weight are measured, and the BMI is calculated from those numbers. This can be done either in [place] or metric measurements. Note that charts and online BMI calculators are available to help you find your BMI quickly and easily without having to do these calculations yourself.\.br\ To calculate your BMI in [place] measurements:\.b r\ \.br\ 1. \.br\ Measure your weight in [...] BMI.\.br\ To calculate your BMI in metric measurements:\.b r\ 1. \.br\ Measure your weight in kilograms [...] men and women.\.br\ Where to find more information\.br\ For more information about BMI, including tools to quickly calculate your BMI, go to these websites:\.br\ ? \.br\ Centers for Disease Control and Prevention: www.cdc.gov\.br\ ? \.br\ [place] Heart Association: www.heart.org\.b r\ ? \.br\ National Heart, Lung, and Blood [place]: www.nhlbi.nih.go v\.br\ Summary\.br\ ? \.br\ Body mass index (BMI) is a number that is calculated from a person's weight and height.\.br\ ? \.br\ BMI may help estimate how much of a person's weight is composed of fat. BMI can help identify those who may be at higher risk for certain medical problems.\.br\ ? \.br\ BMI can be measured using [place] measurements or metric measurements.\.b r\ ? \.br\ BMI charts are used to identify whether you are underweight, normal weight, overweight, or obese. [facility] CBC w/ Auto Diffon 4 Basophils/100 WBC (Bld) 0.5 % Normal 0.0-2.0 [facility] Comment on above: Performed By: #### 2 016280, 1134936, 517432249, 04346889, 0501375 ####[facility] [address] [place] [address] Basophils/Leukocytes Auto (Bld) [Pure # fraction] 0.0 E9/L Normal 0.0-0.2 [facility] Comment on above: Performed By: #### 2 054593, 7420196, 606826230, 73105499, 4539123 ####[facility] [address] [place] [address] Eosinophils (Bld) [#/Vol] 0.5 E9/L Normal 0.0-0.5 [facility] Comment on above: Performed By: #### 2 314508, 4922281, 213225388, 71422809, 7060801 ####[facility] [address] [place] [address] Eosinophils/100 WBC (Bld) 7.1 % Normal 0.0-8.0 [facility] Comment on above: Performed By: #### 2 098990, 6672214, 958438792, 39378312, 1950983 ####[facility] [address] [place] [address] Erythrocyte distribution width (RBC) [Ratio] 13.5 % Normal 10.9-14.2 [facility] Comment on above: Performed By: #### 2 202719, 2160046, 314214964, 89894020, 2503407 ####[address] [place] [address] Hematocrit (Bld) [Volume fraction] 43.3 % Normal 37.7-49.0 [facility] Comment on above: Performed By: #### 2 129772, 1953777, 560093483, 44735197, 2703801 ####[address] [address] Hemoglobin (Bld) [Mass/Vol] 14.2 g/dL Normal 13.5-17.5 [facility] Comment on above: Performed By: #### 2 877890, 9409421, 618921753, 52955300, 5263439 ####[address] [address] Lymphocytes (Bld) [#/Vol] 1.7 E9/L Normal 1.0-4.0 [facility] Comment on above: Performed By: #### 2 570668, 2439390, 613703053, 38586858, 1380488 ####[facility] [address] [place] [address] Lymphocytes/100 WBC (Bld) 24.2 % Normal 14.0-50.0 [facility] Comment on above: Performed By: #### 2 409038, 2039271, 591923171, 06642440, 3426518 ####[facility] [address] [place] [address] MCH (RBC) [Entitic mass] 29.4 pg Normal 27.0-34.0 [facility] Comment on above: Performed By: #### 2 332082, 6626748, 304843877, 81971231, 6487808 ####[facility] [address] [place] [address] MCHC (RBC) [Mass/Vol] 32.7 g/dL Normal 31.4-36.0 [facility] Comment on above: Performed By: #### 2 774949, 9320821, 928263237, 70721694, 3949512 ####[address] [address] MCV (RBC) [Entitic vol] 90.0 fL Normal 80.0-100.0 [facility] Comment on above: Performed By: #### 2 792602, 5857159, 830859291, 76339133, 0154267 ####[address] [address] Monocytes (Bld) [#/Vol] 0.8 E9/L Normal 0.2-1.0 [facility] Comment on above: Performed By: #### 2 829622, 3265369, 802035024, 82814227, 2196350 ####[address] [address] Neutrophils (Bld) [#/Vol] 3.9 E9/L Normal 2.0-7.5 [facility] Comment on above: Performed By: #### 2 791758, 7505463, 608575569, 63874789, 2267496 ####[address] [address] Neutrophils/100 WBC (Bld) 57.0 % Normal 36.0-75.0 [facility] Comment on above: Performed By: #### 2 585680, 2952505, 445284816, 62377026, 8402016 ####[address] [address] Platelet mean volume (Bld) [Entitic vol] 9.3 fL Normal 6.4-10.8 [facility] Comment on above: Performed By: #### 2 008831, 5947133, 584064867, 68731221, 9176816 ####[facility] [address] [place] [address] Platelets (Bld) [#/Vol] 144.0 E9/L Low 150.0-500.0 [facility] Comment on above: Performed By: #### 2 871089, 1221664, 791887302, 42939452, 4299573 ####[facility] [address] [place] [address] RBC (Bld) [#/Vol] 4.8 E12/L Normal 4.3-5.9 [facility] Comment on above: Performed By: #### 2 422281, 8848310, 426292396, 61378254, 7856587 ####[facility] [address] [place] [address] WBC corrected for nucl RBC Auto (Bld) [#/Vol] 6.9 E9/L Normal 4.0-11.0 [facility] Comment on above: Performed By: #### 2 191486, 8487214, 015179855, 43402216, 8061203 ####[facility] [address] [place] [address] CHEMISTRYOrdered By: SYSTEM SYSTEM on 04-20-2023 Albumin [Mass/Vol] 4.2 g/dL Normal 3.3 - 5.0 gm/dL R emisol Chem Albumin/Globulin [Mass ratio] 1.6 {ratio} Normal [...] Bilirubin [Mass/Vol] 0.7 mg/dL Normal 0.0 - 1.1 mg/dL Remisol Chem Calcium [Mass/Vol] 9.1 mg/dL Normal 8.9 - 11.1 mg/dL [facility] Chem Chloride [Moles/Vol] 105 mmol/L Normal 101 - 111 mmol/ L [facility] Chem Cholesterol [Mass/Vol] 74 mg/dL Low 120 - 200 mg/ dL [facility] Chem Cholesterol in HDL [Mass/Vol] 27 [...] [Mass/Vol] 1.5 mg/dL High 0.5 - 1.3 mg/d L Remisol Chem eGFR 45 mL/min/1.73 m2 Low >=59mL/min /1.73 m2 [facility] Chem Globulin (S) [Mass/Vol] 2.7 g/dL Normal 1.4 - 4.0 gm/dL [facility] Chem Glucose [Mass/Vol] 87 mg/dL Normal 55 - 199 mg/dL Re misol Chem Potassium [Moles/Vol] 4.2 mmol/L Normal 3.5 - 5.3 mmol /L Remisol Chem Protein [Mass/Vol] 6.9 g/dL Normal 6.0 - 7.8 gm/dL R emisol Chem Sodium [Moles/Vol] 141 mmol/L Normal 135 - 145 mmol/L [facility] Chem Triglyceride [Mass/Vol] 65 mg/dL Normal <=149mg/dL [facility] Chem Urea nitrogen [Mass/Vol] 27 mg/dL High 5 - 21 mg/dL [facility] Chem Urea nitrogen/Creatinine [Mass ratio] 18 mg/mg Normal 10 - 20 Remisol Chem CMPon 04-20-2023 Albumin [Mass/Vol] 4.2 g/dL Normal 3.3-5.0 [facility] Comment on above: Performed By: #### 2 197283, 4120691, 541983292, 43550841, 1308292 ####[facility] [address] [place] [address] Albumin/Globulin (S) [Mass conc ratio] 1.6 Normal 1.1-2.2 [facility] Comment on above: Performed By: #### 2 550306, 5223865, 300871026, 18834163, 0632165 ####[facility] [address] [place] [address] ALP [Catalytic activity/Vol] 50 Int._Unit/L Normal 21-98 [facility] Comment on above: Performed By: #### 2 898147, 9539643, 780449089, 70192257, 1980414 ####[address] [address] ALT No additional P-5'-P [Catalytic activity/Vol] 15 Int._Unit/L Normal 6-46 [facility] Comment on above: Performed By: #### 2 838443, 4369538, 567527781, 33800415, 5254864 ####[facility] [address] [place] [address] Anion gap [Moles/Vol] 9 mmol/L Normal 6-16 [facility] Comment on above: Performed By: #### 2 799579, 0890401, 692902062, 05380596, 8982996 ####[facility] [address] [place] [address] AST [Catalytic activity/Vol] 18 Int._Unit/L Normal 5-43 [facility] Comment on above: Performed By: #### 2 739795, 6514501, 324181670, 63944943, 7921176 ####[facility] [address] [place] [address] Bilirubin [Mass/Vol] 0.7 mg/dL Normal 0.0-1.1 [place] Comment on above: Performed By: #### 2 641496, 6143829, 644497249, 48034988, 4270059 ####[facility] [address] [place] [address] Calcium [Mass/Vol] 9.1 mg/dL Normal 8.9-11.1 [facility] Comment on above: Performed By: #### 2 265822, 5211518, 329757223, 90371206, 9783394 ####[facility] [address] [place] [address] Chloride [Moles/Vol] 105 mmol/L Normal 101-111 [place] Comment on above: Performed By: #### 2 461807, 7739672, 153337022, 70375565, 0078834 ####[facility] [address] [place] [address] CO2 [Moles/Vol] 31 mmol/L Normal 21-31 [facility] Comment on above: Performed By: #### 2 047631, 8819091, 774574868, 28742160, 3312041 ####[facility] [address] [place] [address] Creatinine [Mass/Vol] 1.5 mg/dL High 0.5-1.3 [facility] Comment on above: Performed By: #### 2 765910, 4638814, 532237809, 86448013, 5833099 ####[facility] [address] [place] [address] Globulin (S) [Mass/Vol] 2.7 g/dL Normal 1.4-4.0 [facility] Comment on above: Performed By: #### 2 807514, 1948955, 050777200, 10475952, 3730078 ####[facility] [address] [place] [address] Glucose [Mass/Vol] 87 mg/dL Normal 55-199 [facility] Comment on above: Performed By: #### 2 508948, 2354841, 880855638, 57290462, 9897155 ####[facility] [address] [place] [address] Potassium [Moles/Vol] 4.2 mmol/L Normal 3.5-5.3 [facility] Comment on above: Performed By: #### 2 437541, 5217456, 605195502, 12213268, 5356415 ####[facility] [address] [place] [address] Protein [Mass/Vol] 6.9 g/dL Normal 6.0-7.8 [facility] Comment on above: Performed By: #### 2 715358, 0096780, 635568428, 03208712, 8384153 ####[facility] [address] [place] [address] Sodium [Moles/Vol] 141 mmol/L Normal 135-145 [facility] Comment on above: Performed By: #### 2 150647, 7882283, 533321970, 10615606, 7190927 ####[facility] [address] [place] [address] Urea nitrogen [Mass/Vol] 27 mg/dL High 5-21 [facility] Comment on above: Performed By: #### 2 234523, 1018821, 101885586, 86250637, 2164246 ####[facility] [address] [place] [address] Urea nitrogen/Creatinine [Mass ratio] 18 No Units Normal 10-20 [facility] Comment on above: Performed By: #### 2 472579, 9008128, 729741849, 19668599, 1423302 ####[facility] [address] [place] [address] Family Medicine Office/Clini c Noteon 04-20-2023 Family Medicine Office/Clinic Note HPI Staff Zaira [...] BS Assessment/Plan 1. Long-term insulin use (Z79.4: shelter (current) use of insulin) - Concern that [...] mm Hg (more content not included)... Normal [facility] Comment on above: Result Comment: Elec tronically Signed By: Dipesh PABLO, Gilson Langstonbr\Date and Time Signed: 04/20/23 08:35 EDT Formson 04-20-2023 Forms [id number] #1.00TIFF Normal [facility] HEMATOLOGYOrdered By: SYSTEM SYSTEM on 04-20-2023 [...] 4.8 E12/L Normal 4.3 - 5.9 E12/L Re misol Heme WBC corrected for nucl RBC Auto (Bld) [#/Vol] 6.9 E9/L Normal 4.0 - 11.0 E9/L Remisol Heme Lipid Panelon 04-20-2023 Cholesterol [Mass/Vol] 74 mg/dL Low 120-200 [facility] Comment on above: Performed By: #### 2 841976, 9111069, 663553465, 50005646, 8121329 ####[facility] [address] [place] [address] Cholesterol in HDL [Mass/Vol] 27 mg/dL Invalid Interpretation Code [facility] Comment on above: Result Comment: '>= 60 LOW RISK' '<= 40 HIGH RISK' Performed By: #### 2 292744, 2169588, 342388328, 21647498, 5361866 ####[facility] [address] [place] [address] Cholesterol in LDL [Mass/Vol] 37 mg/dL Normal <=129 [facility] Comment on above: Performed By: #### 2 060232, 8862547, 131328290, 98319333, 7212491 ####[facility] [address] [place] [address] Cholesterol in VLDL [Mass/Vol] 13 mg/dL Normal 7-40 [facility] Comment on above: Performed By: #### 2 229275, 6891576, 993924380, 92937052, 5154980 ####[facility] [address] [place] [address] Triglyceride [Mass/Vol] 65 mg/dL Normal <=149 [facility] Comment on above: Performed By: #### 2 026490, 5024763, 387746802, 84031097, 9518006 ####[facility] [address] [place] [address] Patient Educationon 04-20-19 Patient Education Nutrition BMI [...] numbers. This can be done either in [place] or metric measurements. Note that charts and online BMI calculators are available to help you find your BMI quickly and easily without having to do these calculations yourself. To calculate your BMI in [place] measurements: 1. Measure your weight in [...] for Disease Control and Prevention: www.cdc.gov ? [place] Heart [employer]: www.heart.org ? National Heart, Lung, and Blood [place]: www.nhlbi.nih.gov Summary ? Body mass index (BMI) is a number that is calculated from a person's weight and height. ? BMI may help estimate how much of a person's weight is composed of fat. BMI can help identify those who may be at higher risk for certain medical problems. ? BMI can be measured using [place] measurements or metric measurements. ? BMI charts are used to identify whether you are underweight, normal weight, overweight, or obese. This information is not intended to replace advice given to you by your health care provider. Make sure you discuss any questions you have with your health care provider. Document Revised: 10/17/2019 Document Reviewed: 08/24/2019 [employer] Patient Education ? 2022 Played. [facility] Pre-Visit Planningon 024 Pre-Visit Planning - From: Tanya Mena To: Gilson Salgado MD; Sent: 04/19/2023 09:32:31 EDT Subject: Pre-Visit Planning Due Date/Time: 04/19/2023 09:32:00 EDT Caller Name: IMELDA GARCIA ZAIRA; Caller Number: H Tx Dr. Salgado. During a pre-visit planning chart review, I noted the following documentation in the medical record: lifeIO Facesheet: Chronic kidney disease, stage 3, unspecified [...] feel free to contact me at extension [phone]. Thank you! Tanya Mena LPN - From: Gilson Salgado MD To: Tanya Mena; Sent: 04/20/2023 14:06:08 EDT Subject: RE: Pre-Visit Planning Caller Name: ZAIRA SEGURA III; Caller Number: H Labs ordered today Normal [address] [place] [address] Pre-Visit Planning - From: Tanya Mena To: Gilson Salgado MD; Sent: 04/19/2023 09:22:32 EDT Subject: Pre-Visit Planning Due Date/Time: 04/19/2023 09:22:00 EDT Caller Name: ZAIRA SEGURA III; Caller Number: H Tx Dr. Salgado. 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 Thank you! Tanya Mena LPN - From: Gilson Salgado MD To: Tanya Mena; Sent: 04/20/2023 14:05:41 EDT Subject: RE: Pre-Visit Planning Caller Name: ZAIRA SEGURA III; Caller Number: H Digna. I missed this. Normal [address] [facility] Pre-Visit Planning - From: Tanya Mena To: [...] feel free to contact me at extension [phone]. Thank you! Tanya Mena LPN - From: Gilson Salgado MD To: Tanya Mena; Sent: 04/20/2023 14:04:33 EDT Subject: RE: Pre-Visit Planning Caller Name: ZAIRA SEGURA III; Caller Number: H Digna. Its suppose to be type 2. Normal [address] [facility] eGFRon 04-20-2023 eGFR 45 mL/min/1.73 m2 Low >=59 [facility] Comment on above: Order Comment: Order added by Discern Expert. Performed By: #### 2 244325, 4050495, 497694701, 77588612, 6415309 ####[facility] [address] [place] [address] Home Health Recordson 2022 Home Health Records [id number] #1.00TIFF Normal [facility] Office Visiton 01-11-2023 Follow-up visit [id number] Zaira Segura III 1935 M Date Provider Department Center 01/11/2023 CELIO SCHNEIDER [facility] Family History Problem Relation Age of Onset Other Father Heart failure Sister Family Status - Relation Status Age at Father Sister Level of Service:99840 [place] OFFICE/OUTPATIENT ESTABLISHED LOW MDM 20-29 MIN Normal [facility] Orders Onlyon 11-05-2022 Orders Only [id number] Zaira Segura III 1935 M [facility] Provider Department [place] 11/05/2022 DESHAUN SANDHU [facility] Family History Problem Relation Age of Onset Other Father Heart failure Sister Family Status - Relation Status Age at Father Sister Normal [facility] Telephoneon 11-05-2022 Telephone [id number] Zaira Segura III 1935 [facility] Provider Department Center 11/05/2022 DESHAUN SANDHU Hos Family History Problem Relation Age of Onset Other Father Heart failure Sister Family Status - Relation Status Age at Father Sister Normal [facility] Office Visiton 10-26-2022 Follow-up visit [id number] Zaira Segura III 1935 M Date Provider Department Center 10/26/2022 TARA REED [facility] Family History Problem Relation Age of Onset Other Father Heart failure Sister Family Status - Relation Status Age at Father Sister Level of Service:75682 [place] OFFICE/OUTPATIENT ESTABLISHED MOD MDM 30-39 MIN Normal [facility] 30on 10-19-2022 30 The patient is Moderately Stable - Low risk of patient condition declining or worsening The patient's goals for the shift include 02 test The clinical goals for the shift include vss Over the shift, the patient did not make progress toward the following goals. Barriers to progression include . Recommendations to address these barriers include . Normal [facility] 30 The patient is Moderately Stable - Low risk of patient condition declining or worsening The patient's goals for the shift include comfort The clinical goals for the shift include VSS Over the shift, the patient did not make progress toward the following goals. Barriers to progression include . Recommendations to address these barriers include . Normal [facility] 30 The patient is Moderately Stable - Low risk of patient condition declining or worsening The patient's goals for the shift include comfort The clinical goals for the shift include VSS Normal [facility] BASIC METABOLIC PANELon 10-08 Anion gap [Moles/Vol] 9 mmol/L Normal 7-20 [facility] Comment on above: Performed By: #### L AB18 #### [facility] ([facility]) [address] [place] [address] Calcium [Mass/Vol] 8.9 mg/dL Normal 8.6-10.3 [facility] Comment on above: Performed By: #### L AB18 #### [facility] ([facility]) [address] [place] [address] Chloride [Moles/Vol] 106 mmol/L Normal 98-107 [facility] Comment on above: Performed By: #### L AB18 #### [facility] ([facility]) [address] [place] [address] CO2 [Moles/Vol] 26 mmol/L Normal 21-31 [facility] Comment on above: Performed By: #### L AB18 #### [facility] ([facility]) [address] [place] [place] [address] Creatinine [Mass/Vol] 1.38 mg/dL High 0.70-1.30 [facility] Comment on above: Performed By: #### L [id number] #### [facility] ([facility]) [address] [place] [address] GLOMERULAR FILTRATION RATE ML/MIN/1.73 SQ M.PREDICTED 50.1 mL/min/1.73m*2 Low >60.0 [facility] Comment on above: Result Comment: [facility]???s estimated glomerular filtration rate (eGFR) will [...] group of individuals. Performed By: #### L [id number] #### [facility] ([facility]) [address] [place] [address] Glucose [Mass/Vol] 155 mg/dL High 70-100 [facility] Comment on above: Performed By: #### L [id number] #### [facility] ([facility]) [address] [place] [address] Potassium [Moles/Vol] 4.1 mmol/L Normal 3.5-5.1 [facility] Comment on above: Performed By: #### L [id number] #### [facility] ([facility]) [address] [place] [address] Sodium [Moles/Vol] 137 mmol/L Normal 136-145 [facility] Comment on above: Performed By: #### L [id number] #### [facility] ([facility]) [address] [place] [address] Urea nitrogen [Mass/Vol] 25 mg/dL Normal 7-25 [facility] Comment on above: Performed By: #### L [id number] #### [facility] ([facility]) [address] [place] [address] UREA NITROGEN/CREATININE (MASS RATIO) IN SER/PLAS 18.1 Normal [facility] Comment on above: Performed By: #### L [id number] #### [facility] ([facility]) [address] [place] [address] CBCon 10-19-2022 Erythrocyte distribution width (RBC) [Ratio] 13.0 % Normal 11.5-15.0 [facility] Comment on above: Performed By: #### L [id number] #### [facility] ([facility]) [address] [place] [address] ERYTHROCYTE MEAN CORPUSCULAR HEMOGLOBIN CONCENTRATION (G/DL) BY AUTOMATED 33.6 g/dL Normal 32.0-35.0 [facility] Comment on above: Performed By: #### L [id number] #### [facility] ([facility]) [address] [place] [address] Hematocrit (Bld) [Volume fraction] 36.0 % Low 39.0-55.0 [facility] Comment on above: Performed By: #### L [id number] #### [facility] ([facility]) [address] [place] [address] Hemoglobin (Bld) [Mass/Vol] 12.1 g/dL Low 13.0-17.0 [facility] Comment on above: Performed By: #### L [id number] #### [facility] ([facility]) [address] [place] [address] IMMATURE PLATELET FRACTION % 4.2 % Normal 0.8-6.3 [facility] Comment on above: Performed By: #### L [id number] #### [facility] ([facility]) [address] [place] [address] MCH (RBC) [Entitic mass] 30.2 pg Normal 27.0-33.0 [facility] Comment on above: Performed By: #### L [id number] #### [facility] ([facility]) [address] [place] [address] MCV (RBC) [Entitic vol] 89.8 fL Normal 82.0-98.0 [facility] Comment on above: Performed By: #### L [id number] #### [facility] ([facility]) [address] [place] [address] PLATELETS (10*3/UL) IN BLOOD AUTOMATED COUNT 121 10*3/uL Low 150-400 [facility] Comment on above: Performed By: #### L [id number] #### [facility] ([facility]) [address] [place] [address] RBC (Bld) [#/Vol] 4.01 10*6/uL Low 4.20-5.70 [facility] Comment on above: Performed By: #### L [id number] #### [facility] ([facility]) [address] [place] [address] WBC (Bld) [#/Vol] 7.45 10*3/uL Normal 4.00-10.60 [facility] Comment on above: Performed By: #### L [id number] #### [facility] ([facility]) [address] [place] [address] MAGNESIUMon 10-19-2022 Magnesium [Mass/Vol] 1.7 mg/dL Low 1.9-2.7 [facility] Comment on above: Performed By: #### L [id number] #### [facility] ([facility]) [address] [place] [address] POCT GLUCOSE METER UNSOLICIT ED RESULTSon 10-19-2022 Glucose [Mass/Vol] 130 mg/dL High 70-105 [facility] Comment on above: Order Comment: Waive d Testing in the ED is performed under the ED CLIA certificate #[id number]. Result Comment: atru ss Performed By: #### L [id number] #### [facility] ([facility]) [address] [place] [address] 30on 10-18-2022 30 Daily Case Management Update Multidisciplinary rounds have been completed. Barriers to Discharge: Cath w/ PCI scheduled for today. Will discharge home with [facility] when medically ready. Diet: Dietary Orders (From admission, onward) Start Ordered 10/18/221052 Diet NPO Diet effective now Comments: No exceptions NOW Question: Reason for NPO: Answer: Operation/Procedure 10/18/22 10510/17/22 174 Special Kitchen Request Once Comments: Patient [...] Once Comments: Patient is requesting a Raspberry greenlandic roll, omelet with green peppers, onions, palauan cheese, sausage, and apple juice please 10/17/22 [...] OT? Answer: balance issues 10/14/22 0855 Normal [facility] 30 The patient is Moderately Stable - Low risk of patient condition declining or worsening The patient's goals for the shift include comfort The clinical goals for the shift include VSS Problem: Safety - Adult Goal: Free from fall injury Outcome: Progressing Problem: Pain - Adult Goal: Verbalizes/displays adequate comfort level or baseline comfort level Outcome: Progressing Normal [facility] Narciso 10-18-2022 ANES Patient: Zaira Shrestha Imelda GARCIA Choose an anesthesia record to view details [...] to blood products. Additional Equipment Requests Normal [facility] APTTon 10-18-2022 ACTIVATED PARTIAL THROMBOPLASTIN TIME IN PPP BY COAGULATION ASSAY 80.9 Seconds High 25.0-35.0 [facility] Comment on above: Result Comment: Clin ical significance of the APTT is questionable in the presence of heparin. Performed By: #### L [id number] #### [facility] ([facility]) [address] [place] [address] BASIC METABOLIC PANELon 10-08 Anion gap [Moles/Vol] 12 mmol/L Normal 7-20 [facility] Comment on above: Performed By: #### L [id number] #### [facility] ([facility]) [address] [place] [address] Calcium [Mass/Vol] 8.9 mg/dL Normal 8.6-10.3 [facility] Comment on above: Performed By: #### L [id number] #### [facility] ([facility]) [address] [place] [address] Chloride [Moles/Vol] 107 mmol/L Normal 98-107 [facility] Comment on above: Performed By: #### L [id number] #### [facility] ([facility]) [address] [place] [address] CO2 [Moles/Vol] 24 mmol/L Normal 21-31 [facility] Comment on above: Performed By: #### L [id number] #### [facility] ([facility]) [address] [place] [address] Creatinine [Mass/Vol] 1.47 mg/dL High 0.70-1.30 [facility] Comment on above: Performed By: #### L [id number] #### [facility] ([facility]) [address] [facility] [place] [address] GLOMERULAR FILTRATION RATE ML/MIN/1.73 SQ M.PREDICTED 46.5 mL/min/1.73m*2 Low >60.0 [facility] Comment on above: Result Comment: [facility]???s estimated glomerular filtration rate (eGFR) will [...] of individuals. Performed By: #### L [id number] #### [facility] ([facility]) [address] [place] [address] Glucose [Mass/Vol] 156 mg/dL High 70-100 [facility] Comment on above: Performed By: #### L [id number] #### [facility] ([facility]) [address] [place] [address] Potassium [Moles/Vol] 3.8 mmol/L Normal 3.5-5.1 [facility] Comment on above: Performed By: #### L [id number] #### [facility] ([facility]) [address] [place] [address] Sodium [Moles/Vol] 139 mmol/L Normal 136-145 [facility] Comment on above: Performed By: #### L [id number] #### [facility] ([facility]) [address] [place] [address] Urea nitrogen [Mass/Vol] 30 mg/dL High 7-25 [facility] Comment on above: Performed By: #### L [id number] #### [facility] ([facility]) [address] [place] [address] UREA NITROGEN/CREATININE (MASS RATIO) IN SER/PLAS 20.4 Normal [facility] Comment on above: Performed By: #### L [id number] #### [facility] ([facility]) [address] [place] [address] CBCon 10-18-2022 Erythrocyte distribution width (RBC) [Ratio] 12.9 % Normal 11.5-15.0 [facility] Comment on above: Performed By: #### L [id number] #### [facility] ([facility]) [address] [place] [address] ERYTHROCYTE MEAN CORPUSCULAR HEMOGLOBIN CONCENTRATION (G/DL) BY AUTOMATED 33.0 g/dL Normal 32.0-35.0 [facility] Comment on above: Performed By: #### L [id number] #### [facility] ([facility]) [address] [place] [address] Hematocrit (Bld) [Volume fraction] 36.4 % Low 39.0-55.0 [facility] Comment on above: Performed By: #### L [id number] #### [facility] ([facility]) [address] [place] [address] Hemoglobin (Bld) [Mass/Vol] 12.0 g/dL Low 13.0-17.0 [facility] Comment on above: Performed By: #### L [id number] #### [facility] ([facility]) [address] [place] [address] IMMATURE PLATELET FRACTION % 4.5 % Normal 0.8-6.3 [facility] Comment on above: Performed By: #### L [id number] #### [facility] ([facility]) [address] [place] [address] MCH (RBC) [Entitic mass] 29.6 pg Normal 27.0-33.0 [facility] Comment on above: Performed By: #### L [id number] #### [facility] ([facility]) [address] [place] [address] MCV (RBC) [Entitic vol] 89.9 fL Normal 82.0-98.0 [facility] Comment on above: Performed By: #### L [id number] #### [facility] ([facility]) [address] [place] [address] PLATELETS (10*3/UL) IN BLOOD AUTOMATED COUNT 115 10*3/uL Low 150-400 [facility] Comment on above: Performed By: #### L [id number] #### [facility] ([facility]) [address] [place] [address] RBC (Bld) [#/Vol] 4.05 10*6/uL Low 4.20-5.70 [facility] Comment on above: Performed By: #### L [id number] #### [facility] ([facility]) [address] [place] [address] WBC (Bld) [#/Vol] 7.36 10*3/uL Normal 4.00-10.60 [facility] Comment on above: Performed By: #### L [id number] #### [facility] ([facility]) [address] [place] [address] HPon 10-18-2022 HP H&P reviewed. The patient [...] atherectomy and IVUS via femoral access. Normal [facility] MAGNESIUMon 10-18-2022 Magnesium [Mass/Vol] 1.5 mg/dL Low 1.9-2.7 [facility] Comment on above: Performed By: #### L [id number] #### [facility] ([facility]) [address] [place] [address] POCT GLUCOSE METER UNSOLICIT ED RESULTSon 10-18-2022 Glucose [Mass/Vol] 111 mg/dL High 70-105 [facility] Comment on above: Order Comment: Waive d Testing in the ED is performed under the ED CLIA certificate #[id number]. Result Comment: atru ss Performed By: #### L [id number] #### [facility] ([facility]) [address] [place] [address] Glucose [Mass/Vol] 133 mg/dL High 70-105 [facility] Comment on above: Order Comment: Waive d Testing in the ED is performed under the ED CLIA certificate #[id number]. Result Comment: [email or web address] Performed By: #### L [id number] #### [facility] ([facility]) [address] [place] [address] Glucose [Mass/Vol] 169 mg/dL High 70-105 [facility] Comment on above: Order Comment: Waive d Testing in the ED is performed under the ED CLIA certificate #[id number]. Result Comment: [email or web address] Performed By: #### L [id number] #### [facility] ([facility]) [address] [place] [address] Glucose [Mass/Vol] 151 mg/dL High 70-105 [facility] Comment on above: Order Comment: Waive d Testing in the ED is performed under the ED CLIA certificate #[id number]. Result Comment: [email or web address] Performed By: #### L [id number] #### [facility] ([facility]) [address] [place] [address] 30on 10-17-2022 30 Problem: Pain - Adult Goal: Verbalizes/displays adequate comfort level or baseline comfort level Outcome: Progressing Problem: Safety - Adult Goal: Free from fall injury Outcome: Progressing Flowsheets (Taken 10/17/2022799) Free from fall injury: Assess patient frequently for physical needs Identify cognitive and physical deficits and behaviors that affect risk of falls [place] fall precautions as indicated by assessment Educate [...] maintained or improved Outcome: Progressing Flowsheets (Taken 10/17/2022799) Care Plan - Patient's Chronic Conditions and [...] goals for the shift include VSS Normal [facility] APTTon 10-17-2022 ACTIVATED PARTIAL THROMBOPLASTIN TIME IN PPP BY COAGULATION ASSAY 84.0 Seconds High 25.0-35.0 [facility] Comment on above: Result Comment: Clin ical significance of the APTT is questionable in the presence of heparin. Performed By: #### L [id number] ####[facility] ([facility])[address] [facility] [address] BASIC METABOLIC PANELon 10-08 Anion gap [Moles/Vol] 8 mmol/L Normal 7-20 [facility] Comment on above: Performed By: #### L [id number] #### [facility] ([facility]) [address] [place] [address] Calcium [Mass/Vol] 9.4 mg/dL Normal 8.6-10.3 [facility] Comment on above: Performed By: #### L [id number] #### [facility] ([facility]) [address] [place] [address] Chloride [Moles/Vol] 102 mmol/L Normal 98-107 [facility] Comment on above: Performed By: #### L [id number] #### [facility] ([facility]) [address] [place] [address] CO2 [Moles/Vol] 31 mmol/L Normal 21-31 [facility] Comment on above: Performed By: #### L [id number] #### [facility] ([facility]) [address] [place] [address] Creatinine [Mass/Vol] 1.53 mg/dL High 0.70-1.30 [facility] Comment on above: Performed By: #### L [id number] #### [facility] ([facility]) [address] [place] [address] GLOMERULAR FILTRATION RATE ML/MIN/1.73 SQ M.PREDICTED 44.3 mL/min/1.73m*2 Low >60.0 [facility] Comment on above: Result Comment: [facility]???s estimated glomerular filtration rate (eGFR) will [...] of individuals. Performed By: #### L [id number] #### [facility] ([facility]) [address] [place] [address] Glucose [Mass/Vol] 160 mg/dL High 70-100 [facility] Comment on above: Performed By: #### L [id number] #### [facility] ([facility]) [address] [facility] [place] [address] Potassium [Moles/Vol] 4.0 mmol/L Normal 3.5-5.1 [facility] Comment on above: Performed By: #### L [id number] #### [facility] ([facility]) [address] [place] [address] Sodium [Moles/Vol] 137 mmol/L Normal 136-145 [facility] Comment on above: Performed By: #### L [id number] #### [facility] ([facility]) [address] [place] [address] Urea nitrogen [Mass/Vol] 28 mg/dL High 7-25 [facility] Comment on above: Performed By: #### L [id number] #### [facility] ([facility]) [address] [facility] [address] UREA NITROGEN/CREATININE (MASS RATIO) IN SER/PLAS 18.3 Normal [facility] Comment on above: Performed By: #### L [id number] #### [facility] ([facility]) [address] [place] [address] CBCon 10-17-2022 Erythrocyte distribution width (RBC) [Ratio] 12.9 % Normal 11.5-15.0 [facility] Comment on above: Performed By: #### L [id number] #### [facility] ([facility]) [address] [place] [address] ERYTHROCYTE MEAN CORPUSCULAR HEMOGLOBIN CONCENTRATION (G/DL) BY AUTOMATED 33.5 g/dL Normal 32.0-35.0 [facility] Comment on above: Performed By: #### L [id number] #### [facility] ([facility]) [address] [place] [address] Hematocrit (Bld) [Volume fraction] 38.5 % Low 39.0-55.0 [facility] Comment on above: Performed By: #### L [id number] #### [facility] ([facility]) [address] [place] [address] Hemoglobin (Bld) [Mass/Vol] 12.9 g/dL Low 13.0-17.0 [facility] Comment on above: Performed By: #### L [id number] #### [facility] ([facility]) [address] [place] [address] IMMATURE PLATELET FRACTION % 4.0 % Normal 0.8-6.3 [facility] Comment on above: Performed By: #### L [id number] #### [facility] ([facility]) [address] [place] [address] MCH (RBC) [Entitic mass] 30.1 pg Normal 27.0-33.0 [facility] Comment on above: Performed By: #### L [id number] #### [facility] ([facility]) [address] [place] [address] MCV (RBC) [Entitic vol] 89.7 fL Normal 82.0-98.0 [facility] Comment on above: Performed By: #### L [id number] #### [facility] ([facility]) [address] [place] [address] PLATELETS (10*3/UL) IN BLOOD AUTOMATED COUNT 111 10*3/uL Low 150-400 [facility] Comment on above: Performed By: #### L [id number] #### [facility] ([facility]) [address] [place] [address] RBC (Bld) [#/Vol] 4.29 10*6/uL Normal 4.20-5.70 [facility] Comment on above: Performed By: #### L [id number] #### [facility] ([facility]) [address] [place] [address] WBC (Bld) [#/Vol] 8.26 10*3/uL Normal 4.00-10.60 [facility] Comment on above: Performed By: #### L [id number] #### [facility] ([facility]) [address] [place] [address] POCT GLUCOSE METER UNSOLICIT ED RESULTSon 10-17-2022 Glucose [Mass/Vol] 219 mg/dL High 70-105 [facility] Comment on above: Order Comment: Waive d Testing in the ED is performed under the ED CLIA certificate #[id number]. Result Comment: [email or web address] Performed By: #### L [id number] ####[facility] ([facility])[address] [place] [address] Glucose [Mass/Vol] 178 mg/dL High 70-105 [facility] Comment on above: Order Comment: Waive d Testing in the ED is performed under the ED CLIA certificate #[id number]. Result Comment: [email or web address] Performed By: #### L [id number] #### [facility] ([facility]) [address] [place] [address] Glucose [Mass/Vol] 187 mg/dL High 70-105 [facility] Comment on above: Order Comment: Waive d Testing in the ED is performed under the ED CLIA certificate #[id number]. Result Comment: [email or web address] Performed By: #### L [id number] ####[facility] ([facility])[address] [place] [address] Glucose [Mass/Vol] 157 mg/dL High 70-105 [facility] Comment on above: Order Comment: Waive d Testing in the ED is performed under the ED CLIA certificate #[id number]. Result Comment: [email or web address] Performed By: #### L [id number] #### [facility] ([facility]) [address] [place] [address] 30on 10-16-2022 30 The patient is Moderately Stable - Low risk of patient condition declining or worsening The patient's goals for the shift include comfort and rest The clinical goals for the shift include VSS Over the shift, the patient did make progress toward the following goals. Problem: Safety - Adult Goal: Free from fall injury Outcome: Progressing Flowsheets (Taken 10/16/2022 2200) Free from fall injury: Assess patient frequently for physical needs [place] fall precautions as indicated by assessment Educate patient/family on patient safety, including physical limitations Instruct patient to call for assistance with activity based on assessment Problem: Pain - Adult Goal: Verbalizes/displays adequate comfort level or baseline comfort level Outcome: Progressing Normal [facility] 30 Problem: Pain - Adult Goal: Verbalizes/displays adequate [...] and behaviors that affect risk of falls [place] fall precautions as indicated by assessment Educate [...] shift include to remain hemodynamically stable Normal [facility] APTTon 10-16-2022 ACTIVATED PARTIAL THROMBOPLASTIN TIME IN PPP BY COAGULATION ASSAY 110.7 Seconds High 25.0-35.0 [facility] Comment on above: Result Comment: Clin ical significance of the APTT is questionable in the presence of heparin. Performed By: #### L [id number] ####[facility] ([facility])[address] [place] [address] BASIC METABOLIC PANELon Anion gap [Moles/Vol] 10 mmol/L Normal 7-20 [facility] Comment on above: Performed By: #### L [id number] ####[facility] ([facility])[address] [place] [address] Calcium [Mass/Vol] 9.3 mg/dL Normal 8.6-10.3 [facility] Comment on above: Performed By: #### L [id number] ####[facility] ([facility])[address] [place] [address] Chloride [Moles/Vol] 101 mmol/L Normal 98-107 [facility] Comment on above: Performed By: #### L [id number] ####[facility] ([facility])[address] [place] [address] CO2 [Moles/Vol] 30 mmol/L Normal 21-31 [facility] Comment on above: Performed By: #### L [id number] ####[facility] ([facility])[address] [place] [address] Creatinine [Mass/Vol] 1.42 mg/dL High 0.70-1.30 [facility] Comment on above: Performed By: #### L [id number] ####[facility] ([facility])[address] [place] [address] GLOMERULAR FILTRATION RATE ML/MIN/1.73 SQ M.PREDICTED 48.4 mL/min/1.73m*2 Low >60.0 [facility] Comment on above: Result Comment: [facility]???s estimated glomerular filtration rate (eGFR) will [...] of individuals. Performed By: #### L [id number] ####[facility] ([facility])[address] [place] [address] Glucose [Mass/Vol] 118 mg/dL High 70-100 [facility] Comment on above: Performed By: #### L [id number] ####[facility] ([facility])[address] [place] [address] Potassium [Moles/Vol] 3.9 mmol/L Normal 3.5-5.1 [facility] Comment on above: Performed By: #### L [id number] ####[facility] ([facility])[address] [place] [address] Sodium [Moles/Vol] 137 mmol/L Normal 136-145 [facility] Comment on above: Performed By: #### L [id number] ####[facility] ([facility])[address] [place] [address] Urea nitrogen [Mass/Vol] 27 mg/dL High 7-25 [facility] Comment on above: Performed By: #### L [id number] ####[facility] ([facility])[address] [place] [address] UREA NITROGEN/CREATININE (MASS RATIO) IN SER/PLAS 19.0 Normal [facility] Comment on above: Performed By: #### L [id number] ####[facility] ([facility])[address] [place] [address] CBCon 10-16-2022 Erythrocyte distribution width (RBC) [Ratio] 12.6 % Normal 11.5-15.0 [facility] Comment on above: Performed By: #### L [id number] #### [facility] ([facility]) [address] [address] ERYTHROCYTE MEAN CORPUSCULAR HEMOGLOBIN CONCENTRATION (G/DL) BY AUTOMATED 33.1 g/dL Normal 32.0-35.0 [facility] Comment on above: Performed By: #### L [id number] #### [facility] ([facility]) [address] [place] [address] Hematocrit (Bld) [Volume fraction] 41.1 % Normal 39.0-55.0 [facility] Comment on above: Performed By: #### L [id number] #### [facility] ([facility]) [address] [place] [address] Hemoglobin (Bld) [Mass/Vol] 13.6 g/dL Normal 13.0-17.0 [facility] Comment on above: Performed By: #### L [id number] #### [facility] ([facility]) [address] [place] [address] IMMATURE PLATELET FRACTION % 4.1 % Normal 0.8-6.3 [facility] Comment on above: Performed By: #### L [id number] #### [facility] ([facility]) [address] [place] [address] MCH (RBC) [Entitic mass] 29.3 pg Normal 27.0-33.0 [facility] Comment on above: Performed By: #### L [id number] #### [facility] ([facility]) [address] [place] [address] MCV (RBC) [Entitic vol] 88.6 fL Normal 82.0-98.0 [facility] Comment on above: Performed By: #### L [id number] #### [facility] ([facility]) [address] [place] [address] PLATELETS (10*3/UL) IN BLOOD AUTOMATED COUNT 120 10*3/uL Low 150-400 [facility] Comment on above: Performed By: #### L [id number] #### [facility] ([facility]) [address] [place] [address] RBC (Bld) [#/Vol] 4.64 10*6/uL Normal 4.20-5.70 [facility] Comment on above: Performed By: #### L [id number] #### [facility] ([facility]) [address] [place] [address] WBC (Bld) [#/Vol] 7.53 10*3/uL Normal 4.00-10.60 [facility] Comment on above: Performed By: #### L [id number] #### [facility] ([facility]) [address] [place] [address] MAGNESIUMon 10-16-2022 Magnesium [Mass/Vol] 1.7 mg/dL Low 1.9-2.7 [facility] Comment on above: Performed By: #### L [id number] #### [facility] ([facility]) [address] [place] [address] POCT GLUCOSE METER UNSOLICIT ED RESULTSon 10-16-2022 Glucose [Mass/Vol] 224 mg/dL High 70-105 [facility] Comment on above: Order Comment: Waive d Testing in the ED is performed under the ED CLIA certificate #[id number]. Result Comment: atru ss Performed By: #### L [id number] #### [facility] ([facility]) [address] [place] [address] Glucose [Mass/Vol] 236 mg/dL High 70-105 [facility] Comment on above: Order Comment: Waive d Testing in the ED is performed under the ED CLIA certificate #[id number]. Result Comment: [email or web address] [email or web address] Performed By: #### L [id number] #### [facility] ([facility]) [address] [place] [address] Glucose [Mass/Vol] 209 mg/dL High 70-105 [facility] Comment on above: Order Comment: Waive d Testing in the ED is performed under the ED CLIA certificate #[id number]. Result Comment: [email or web address] [email or web address] Performed By: #### L [id number] ####[facility] ([facility])[address] [place] [address] Glucose [Mass/Vol] 115 mg/dL High 70-105 [facility] Comment on above: Order Comment: Waive d Testing in the ED is performed under the ED CLIA certificate #[id number]. Result Comment: [email or web address] [email or web address] Performed By: #### L [id number] ####[facility] ([facility])[address] [place] [address] 30on 10-15-2022 30 The patient is Moderately Stable - [...] injury: Assess patient frequently for physical needs [place] fall precautions as indicated by assessment Educate patient/family on patient safety, including physical limitations Instruct patient to call for assistance with activity based on assessment Problem: Pain - Adult Goal: Verbalizes/displays adequate comfort level or baseline comfort level Outcome: Progressing Normal [facility] 30 Daily Case Management Update Multidisciplinary rounds have been completed. Barriers [...] Diabetic Male (carb 60g/meal) 10/15/22 1559 10/14/22 1716 Special Kitchen Request Once Comments: [...] OT? Answer: balance issues 10/14/22 0855 Normal [facility] 30 The patient is Moderately Stable - Low risk of patient condition declining or worsening The patient's goals for the shift include comfort The clinical goals for the shift include to remain hemodynamically stable Normal [facility] APTTon 10-15-2022 ACTIVATED PARTIAL THROMBOPLASTIN TIME IN PPP BY COAGULATION ASSAY 126.0 Seconds High 25.0-35.0 [facility] Comment on above: Result Comment: Clin ical significance of the APTT is questionable in the presence of heparin. Performed By: #### L [id number] #### [facility] ([facility]) [address] [place] [address] ACTIVATED PARTIAL THROMBOPLASTIN TIME IN PPP BY COAGULATION ASSAY 133.0 Seconds Critically high 25.0-35.0 [facility] Comment on above: Result Comment: Clin ical significance of the APTT is questionable in the presence of heparin. Performed By: #### L [id number] ####[facility] ([facility])[address] [place] [address] ACTIVATED PARTIAL THROMBOPLASTIN TIME IN PPP BY COAGULATION ASSAY 128.7 Seconds High 25.0-35.0 [facility] Comment on above: Result Comment: Clin ical significance of the APTT is questionable in the presence of heparin. Performed By: #### L [id number] ####[facility] ([facility])[address] [place] [address] ACTIVATED PARTIAL THROMBOPLASTIN TIME IN PPP BY COAGULATION ASSAY 156.1 Seconds Critically high 25.0-35.0 [facility] Comment on above: Result Comment: Clin ical significance of the APTT is questionable in the presence of heparin. Performed By: #### L [id number] #### [facility] ([facility]) [address] [place] [address] BASIC METABOLIC PANELon 09-0 -2022 Anion gap [Moles/Vol] 12 mmol/L Normal 7-20 [facility] Comment on above: Performed By: #### L [id number] #### [facility] ([facility]) [address] [place] [address] Calcium [Mass/Vol] 9.4 mg/dL Normal 8.6-10.3 [facility] Comment on above: Performed By: #### L [id number] #### [facility] ([facility]) [address] [place] [address] Chloride [Moles/Vol] 106 mmol/L Normal 98-107 [facility] Comment on above: Performed By: #### L [id number] #### [facility] ([facility]) [address] [place] [address] CO2 [Moles/Vol] 26 mmol/L Normal 21-31 [facility] Comment on above: Performed By: #### L [id number] #### [facility] ([facility]) [address] [place] [address] Creatinine [Mass/Vol] 1.40 mg/dL High 0.70-1.30 [facility] Comment on above: Performed By: #### L [id number] #### [facility] ([facility]) [address] [place] [address] GLOMERULAR FILTRATION RATE ML/MIN/1.73 SQ M.PREDICTED 49.3 mL/min/1.73m*2 Low >60.0 [facility] Comment on above: Result Comment: [facility]???s estimated glomerular filtration rate (eGFR) will [...] of individuals. Performed By: #### L [id number] #### [facility] ([facility]) [address] [place] [address] Glucose [Mass/Vol] 72 mg/dL Normal 70-100 [facility] Comment on above: Performed By: #### L [id number] #### [facility] ([facility]) [address] [place] [address] Potassium [Moles/Vol] 3.8 mmol/L Normal 3.5-5.1 [facility] Comment on above: Performed By: #### L [id number] #### [facility] ([facility]) [address] [place] [address] Sodium [Moles/Vol] 140 mmol/L Normal 136-145 [facility] Comment on above: Performed By: #### L [id number] #### [facility] ([facility]) [address] [place] [address] Urea nitrogen [Mass/Vol] 23 mg/dL Normal 7-25 [facility] Comment on above: Performed By: #### L [id number] #### [facility] ([facility]) [address] [place] [address] UREA NITROGEN/CREATININE (MASS RATIO) IN SER/PLAS 16.4 Normal [facility] Comment on above: Performed By: #### L [id number] #### [facility] ([facility]) [address] [place] [address] CBCon 10-15-2022 Erythrocyte distribution width (RBC) [Ratio] 12.8 % Normal 11.5-15.0 [facility] Comment on above: Performed By: #### L [id number] ####[facility] ([facility])[address] [place] [address] ERYTHROCYTE MEAN CORPUSCULAR HEMOGLOBIN CONCENTRATION (G/DL) BY AUTOMATED 33.7 g/dL Normal 32.0-35.0 [facility] Comment on above: Performed By: #### L [id number] ####[facility] ([facility])[address] [place] [address] Hematocrit (Bld) [Volume fraction] 41.3 % Normal 39.0-55.0 [facility] Comment on above: Performed By: #### L [id number] ####[facility] ([facility])[address] [place] [address] Hemoglobin (Bld) [Mass/Vol] 13.9 g/dL Normal 13.0-17.0 [facility] Comment on above: Performed By: #### L [id number] ####[facility] ([facility])[address] [place] [address] IMMATURE PLATELET FRACTION % 5.2 % Normal 0.8-6.3 [facility] Comment on above: Performed By: #### L [id number] ####[facility] ([facility])[address] [place] [address] MCH (RBC) [Entitic mass] 30.0 pg Normal 27.0-33.0 [facility] Comment on above: Performed By: #### L [id number] ####[facility] ([facility])[address] [place] [address] MCV (RBC) [Entitic vol] 89.0 fL Normal 82.0-98.0 [facility] Comment on above: Performed By: #### L [id number] ####[facility] ([facility])[address] [place] [address] PLATELETS (10*3/UL) IN BLOOD AUTOMATED COUNT 120 10*3/uL Low 150-400 [facility] Comment on above: Performed By: #### L [id number] ####[facility] ([facility])[address] [place] [address] RBC (Bld) [#/Vol] 4.64 10*6/uL Normal 4.20-5.70 [facility] Comment on above: Performed By: #### L [id number] ####[facility] ([facility])[address] [place] [address] WBC (Bld) [#/Vol] 6.64 10*3/uL Normal 4.00-10.60 [facility] Comment on above: Performed By: #### L [id number] ####[facility] ([facility])[address] [place] [address] HEPARIN LEVELon 10-15-2022 HEPARIN UNFRACTIONATED (U/ML) IN PPP BY CHROMOGENIC METHOD >1.00 Critically high 0.3-0.7 [facility] Comment on above: Order Comment: Hepar in level added per protocol.Actual heparin level for pharmacy use = 1.07 international {unit/units:1472540} /mL Result Comment: Industry roxaban and Apixaban will interfere with the anti Xa assay used to monitor UFH and LMWH. Performed By: #### L [id number] #### [facility] ([facility]) [address] [place] [address] MAGNESIUMon 10-15-2022 Magnesium [Mass/Vol] 1.5 mg/dL Low 1.9-2.7 [facility] Comment on above: Performed By: #### L [id number] #### [facility] ([facility]) [address] [place] [address] POCT GLUCOSE METER UNSOLICIT ED RESULTSon 10-15-2022 Glucose [Mass/Vol] 157 mg/dL High 70-105 [facility] Comment on above: Order Comment: Waive d Testing in the ED is performed under the ED CLIA certificate #[id number]. Result Comment: jose [email or web address] Performed By: #### L [id number] ####[facility] ([facility])[address] [place] [address] Glucose [Mass/Vol] 80 mg/dL Normal 70-105 [facility] Comment on above: Order Comment: Waive d Testing in the ED is performed under the ED CLIA certificate #[id number]. Result Comment: [email or web address] Performed By: #### L [id number] ####[facility] ([facility])[address] [place] [address] Glucose [Mass/Vol] 81 mg/dL Normal 70-105 [facility] Comment on above: Order Comment: Waive d Testing in the ED is performed under the ED CLIA certificate #[id number]. Result Comment: vcar mon Performed By: #### L [id number] ####[facility] ([facility])[address] [place] [address] Glucose [Mass/Vol] 125 mg/dL High 70-105 [facility] Comment on above: Order Comment: Waive d Testing in the ED is performed under the ED CLIA certificate #[id number]. Result Comment: vcar mon Performed By: #### L [id number] ####[facility] ([facility])[address] [place] [address] Glucose [Mass/Vol] 84 mg/dL Normal 70-105 [facility] Comment on above: Order Comment: Waive d Testing in the ED is performed under the ED CLIA certificate #[id number]. Result Comment: atru ss Performed By: #### L [id number] ####[facility] ([facility])[address] [place] [address] 30on 10-14-2022 30 The patient is Moderately Stable - [...] or baseline comfort level Outcome: Progressing Normal [facility] 30 Daily Case Management Update Multidisciplinary rounds have been completed. Barriers [...] OT? Answer: balance issues 10/14/22 0855 Normal [facility] 30 The patient is Moderately Stable [...] and maintained or improved Outcome: Progressing Normal [facility] APTTon 10-14-2022 ACTIVATED PARTIAL THROMBOPLASTIN TIME IN PPP BY COAGULATION ASSAY 153.0 Seconds Critically high 25.0-35.0 [facility] Comment on above: Result Comment: Clin ical significance of the APTT is questionable in the presence of heparin. Performed By: #### L [id number] #### [facility] ([facility]) [address] [place] [address] ACTIVATED PARTIAL THROMBOPLASTIN TIME IN PPP BY COAGULATION ASSAY 168.2 Seconds Critically high 25.0-35.0 [facility] Comment on above: Result Comment: Clin ical significance of the APTT is questionable in the presence of heparin. Performed By: #### L [id number] #### [facility] ([facility]) [address] [place] [address] ACTIVATED PARTIAL THROMBOPLASTIN TIME IN PPP BY COAGULATION ASSAY 33.0 Seconds Normal 25.0-35.0 [facility] Comment on above: Result Comment: Clin ical significance of the APTT is questionable in the presence of heparin. Performed By: #### L [id number] #### [facility] ([facility]) [address] [place] [address] B-TYPE NATRIURETIC PEPTIDEon 10-14-2022 Natriuretic peptide B (Bld) [Mass/Vol] 476 pg/mL High 0-100 [facility] Comment on above: Performed By: #### L [id number] ####[facility] ([facility])[address] [place] [address] CBC WITH AUTO DIFFERENTIALon 10-14-2022 Basophils (Bld) [#/Vol] 0.03 10*3/uL Normal 0.00-0.20 [facility] Comment on above: Performed By: #### L [id number] #### [facility] ([facility]) [address] [place] [address] Basophils/100 WBC (Bld) 0.4 % Normal 0.0-1.0 [facility] Comment on above: Performed By: #### L [id number] #### [facility] ([facility]) [address] [place] [address] Eosinophils (Bld) [#/Vol] 0.27 10*3/uL Normal 0.00-0.50 [facility] Comment on above: Performed By: #### L [id number] #### [facility] ([facility]) [address] [place] [address] Eosinophils/100 WBC (Bld) 3.8 % Normal 0.0-6.0 [facility] Comment on above: Performed By: #### L [id number] #### [facility] ([facility]) [address] [place] [address] Erythrocyte distribution width (RBC) [Ratio] 12.7 % Normal 11.5-15.0 [facility] Comment on above: Performed By: #### L [id number] #### [facility] ([facility]) [address] [place] [address] ERYTHROCYTE MEAN CORPUSCULAR HEMOGLOBIN CONCENTRATION (G/DL) BY AUTOMATED 34.5 g/dL Normal 32.0-35.0 [facility] Comment on above: Performed By: #### L [id number] #### [facility] ([facility]) [address] [place] [address] Hematocrit (Bld) [Volume fraction] 38.6 % Low 39.0-55.0 [facility] Comment on above: Performed By: #### L [id number] #### [facility] ([facility]) [address] [place] [address] Hemoglobin (Bld) [Mass/Vol] 13.3 g/dL Normal 13.0-17.0 [facility] Comment on above: Performed By: #### L [id number] #### [facility] ([facility]) [address] [place] [address] Immature granulocytes (Bld) [#/Vol] 0.01 10*3/uL Normal 0.00-0.20 [facility] Comment on above: Performed By: #### L [id number] #### [facility] ([facility]) [address] [place] [address] Immature granulocytes/100 WBC (Bld) 0.1 % Normal 0.0-1.0 [facility] Comment on above: Performed By: #### L [id number] #### [facility] ([facility]) [address] [place] [address] IMMATURE PLATELET FRACTION % 3.5 % Normal 0.8-6.3 [facility] Comment on above: Performed By: #### L [id number] #### [facility] ([facility]) [address] [place] [address] Lymphocytes (Bld) [#/Vol] 1.94 10*3/uL Normal 1.20-4.00 [facility] Comment on above: Performed By: #### L [id number] #### [facility] ([facility]) [address] [place] [address] Lymphocytes/100 WBC (Bld) 27.0 % Normal 20.0-45.0 [facility] Comment on above: Performed By: #### L [id number] #### [facility] ([facility]) [address] [place] [address] MCH (RBC) [Entitic mass] 30.5 pg Normal 27.0-33.0 [facility] Comment on above: Performed By: #### L [id number] #### [facility] ([facility]) [address] [place] [address] MCV (RBC) [Entitic vol] 88.5 fL Normal 82.0-98.0 [facility] Comment on above: Performed By: #### L [id number] #### [facility] ([facility]) [address] [place] [address] Monocytes (Bld) [#/Vol] 0.72 10*3/uL Normal 0.10-1.00 [facility] Comment on above: Performed By: #### L [id number] #### [facility] ([facility]) [address] [place] [address] Monocytes/100 WBC (Bld) 10.0 % Normal 5.0-12.0 [facility] Comment on above: Performed By: #### L [id number] #### [facility] ([facility]) [address] [place] [address] Neutrophils (Bld) [#/Vol] 4.21 10*3/uL Normal 1.60-7.60 [facility] Comment on above: Performed By: #### L [id number] #### [facility] ([facility]) [address] [place] [address] Neutrophils/100 WBC (Bld) 58.7 % Normal 40.0-72.0 [facility] Comment on above: Performed By: #### L [id number] #### [facility] ([facility]) [address] [place] [address] NRBC (PER 100 WBCS) BY AUTOMATED COUNT 0.0 % Normal 0 [facility] Comment on above: Performed By: #### L [id number] #### [facility] ([facility]) [address] [place] [address] PLATELETS (10*3/UL) IN BLOOD AUTOMATED COUNT 128 10*3/uL Low 150-400 [facility] Comment on above: Performed By: #### L [id number] #### [facility] ([facility]) [address] [place] [address] RBC (Bld) [#/Vol] 4.36 10*6/uL Normal 4.20-5.70 [facility] Comment on above: Performed By: #### L [id number] #### [facility] ([facility]) [address] [place] [address] WBC (Bld) [#/Vol] 7.18 10*3/uL Normal 4.00-10.60 [facility] Comment on above: Performed By: #### L [id number] #### [facility] ([facility]) [address] [place] [address] COMPREHENSIVE METABOLIC PANE Remi 10-14-2022 Albumin [Mass/Vol] 3.9 g/dL Normal 3.5-5.7 [facility] Comment on above: Performed By: #### L [id number] ####[facility] ([facility])[address] [place] [address] ALP [Catalytic activity/Vol] 42 U/L Normal 34-104 [facility] Comment on above: Performed By: #### L [id number] ####[facility] ([facility])[address] [place] [address] ALT [Catalytic activity/Vol] 13 U/L Normal 7-52 [facility] Comment on above: Performed By: #### L [id number] ####[facility] ([facility])[address] [place] [address] Anion gap [Moles/Vol] 10 mmol/L Normal 7-20 [facility] Comment on above: Performed By: #### L [id number] ####[facility] ([facility])[address] [place] [address] AST [Catalytic activity/Vol] 21 U/L Normal 13-39 [facility] Comment on above: Performed By: #### L [id number] ####[facility] ([facility])[address] [place] [address] Bilirubin [Mass/Vol] 1.0 mg/dL Normal 0.3-1.0 [facility] Comment on above: Performed By: #### L [id number] ####[facility] ([facility])[address] [place] [address] Calcium [Mass/Vol] 9.1 mg/dL Normal 8.6-10.3 [facility] Comment on above: Performed By: #### L [id number] ####[facility] ([facility])[address] [place] [address] Chloride [Moles/Vol] 105 mmol/L Normal 98-107 [facility] Comment on above: Performed By: #### L [id number] ####[facility] ([facility])[address] [place] [address] CO2 [Moles/Vol] 29 mmol/L Normal 21-31 [facility] Comment on above: Performed By: #### L [id number] ####[facility] ([facility])[address] [place] [address] Creatinine [Mass/Vol] 1.27 mg/dL Normal 0.70-1.30 [facility] Comment on above: Performed By: #### L [id number] ####[facility] ([facility])[address] [place] [address] GLOMERULAR FILTRATION RATE ML/MIN/1.73 SQ M.PREDICTED 55.4 mL/min/1.73m*2 Low >60.0 [facility] Comment on above: Result Comment: [facility]???s estimated glomerular filtration rate (eGFR) will [...] of individuals. Performed By: #### L [id number] ####[facility] ([facility])[address] [place] [address] Glucose [Mass/Vol] 135 mg/dL High 70-100 [facility] Comment on above: Performed By: #### L [id number] ####[facility] ([facility])[address] [place] [address] Potassium [Moles/Vol] 3.6 mmol/L Normal 3.5-5.1 [facility] Comment on above: Performed By: #### L [id number] ####[facility] ([facility])[address] [facility] [address] Protein [Mass/Vol] 6.3 g/dL Normal 6.0-8.3 [facility] Comment on above: Performed By: #### L [id number] ####[facility] ([facility])[address] [place] [address] Sodium [Moles/Vol] 140 mmol/L Normal 136-145 [facility] Comment on above: Performed By: #### L [id number] ####[facility] ([facility])[address] [place] [address] Urea nitrogen [Mass/Vol] 27 mg/dL High 7-25 [facility] Comment on above: Performed By: #### L [id number] ####[facility] ([facility])[address] [place] [address] UREA NITROGEN/CREATININE (MASS RATIO) IN SER/PLAS 21.3 Normal [facility] Comment on above: Performed By: #### L [id number] ####[facility] ([facility])[address] [place] [address] CONSULTon 10-14-2022 CONSULT Attestation signed by Tato White MD at [...] Dr Savage History Of Present Illness Zaira eSgura III is a 87 y.o. male presenting with chest pain. The pt presented to [facility] yesterday with sudden onset chest pain and transferred to [facility]. Chest pain started spontaneously without inciting event [...] the clinic. Cath was done by Dr Coon, with potential consideration for PCI of mid [...] 154/73 36.7 (more content not included)... Normal [facility] HEMOGLOBIN A1Con 10-14-2022 Glucose [Mass/Vol] 166 mg/dL Normal [facility] Comment on above: Performed By: #### L [id number] #### [facility] (BEAKER) [address] [place] [address] HbA1c (Bld) [Mass fraction] 7.4 % High 4.0-6.0 [facility] Comment on above: Performed By: #### L [id number] #### [facility] (BEAKER) [address] [place] [address] HPon 10-14-2022 HP Attestation signed by Tato White MD at 10/15/2022 6:04 PM I personally saw and examined the patient on the same date of service as resident/fellow Vinh Thompson. I discussed the findings and therapeutic plan with the resident/fellow Vinh Thomspon. I agree with the documentation, except for any edits/updates below. Teaching Physician's Revisions: As noted above Reason For Consult NSTEMI Referring Provider: Dr Savage History Of Present Illness Zaira Segura III is a 87 y.o. male presenting with chest pain. The pt presented to [facility] yesterday with sudden onset chest pain and transferred to [facility]. Chest pain started spontaneously without inciting event [...] the clinic. Cath was done by Dr Coon, with potential consideration for PCI of mid [...] 154/73 36.7 (more content not included)... Normal [facility] LIPID PANELon 10-14-2022 CHOL/HDL 2.3 mg/dL Normal [facility] Comment on above: Performed By: #### L [id number] #### [facility] ([facility]) [address] [place] [address] Cholesterol [Mass/Vol] 53 mg/dL Low 120-200 [facility] Comment on above: Performed By: #### L [id number] #### [facility] ([facility]) [address] [place] [address] Magnesium [Mass/Vol] 67 mg/dL Normal 40-149 [facility] Comment on above: Result Comment: TRIG LYCERIDE REFERENCE RANGE: 20 YEARS AND OLDER CARDIOVASCULAR RISK LESS THAN 150 mg/dL LOW RISK 150 TO 199 mg/dL BORDERLINE RISK 200 mg/dL AND GREATER HIGH RISK Performed By: #### L [id number] #### [facility] ([facility]) [address] [place] [address] Magnesium [Mass/Vol] 17 mg/dL Normal 0-160 [facility] Comment on above: Performed By: #### L [id number] #### [facility] ([facility]) [address] [place] [address] Magnesium [Mass/Vol] 23 mg/dL Normal 23-92 [facility] Comment on above: Performed By: #### L [id number] #### [facility] (BEAKER) [address] [place] [address] NON HDL CHOL. (LDL+VLDL) 30 Normal [facility] Comment on above: Performed By: #### L [id number] #### [facility] ([facility]) [address] [place] [address] TOTAL VLDL-C 13 mg/dL Normal 0-40 [facility] Comment on above: Performed By: #### L [id number] #### [facility] ([facility]) [address] [place] [address] POCT GLUCOSE METER UNSOLICIT ED RESULTSon 10-14-2022 Glucose [Mass/Vol] 92 mg/dL Normal 70-105 [facility] Comment on above: Order Comment: Waive d Testing in the ED is performed under the ED CLIA certificate #[id number]. Result Comment: dinatoma [email or web address] Performed By: #### L [id number] #### [facility] ([employer]) [address] [place] [address] Glucose [Mass/Vol] 148 mg/dL High 70-105 [facility] Comment on above: Order Comment: Waive d Testing in the ED is performed under the ED CLIA certificate #[id number]. Result Comment: [email or web address] [email or web address] Performed By: #### L [id number] #### [facility] ([employer]) [address] [place] [address] Glucose [Mass/Vol] 318 mg/dL High 70-105 [facility] Comment on above: Order Comment: Waive d Testing in the ED is performed under the ED CLIA certificate #[id number]. Result Comment: [place] [email or web address] Performed By: #### L [id number] #### [facility] ([employer]) [address] [place] [address] Glucose [Mass/Vol] 144 mg/dL High 70-105 [facility] Comment on above: Order Comment: Waive d Testing in the ED is performed under the ED CLIA certificate #[id number]. Result Comment: [place] [email or web address] Performed By: #### L [id number] #### [facility] ([facility]) [address] [place] [address] PROTIME-INRon 10-14-2022 INR IN PPP BY COAGULATION ASSAY 1.28 High 0.90-1.10 [facility] Comment on above: Result Comment: ACCC [...] RANGE. CHEST 1995;108:231S-246S. Performed By: #### L [id number] #### [facility] ([facility]) [address] [place] [address] PROTHROMBIN TIME (PT) IN PPP BY COAGULATION ASSAY 16.0 Seconds High 12.3-14.8 [facility] Comment on above: Performed By: #### L [id number] #### [facility] ([facility]) [address] [place] [address] TROPONIN Ion 10-14-2022 Troponin I.cardiac [Mass/Vol] 0.98 ng/mL Critically high 0.00-0.04 [facility] Comment on above: Result Comment: Prev ious result verified on 10/14/2022 0950 on specimen/case [id number] called with component Troponin I for procedure Troponin I with value 1.16 ng/mL. Performed By: #### L [id number] ####[facility] ([facility])[address] [place] [address] Troponin I.cardiac [Mass/Vol] 1.16 ng/mL Critically high 0.00-0.04 [facility] Comment on above: Result Comment: M-NJ EVIOUS CRITICAL RESULT Previous result verified on 10/14/2022 0223 on specimen/case [id number] called with component Troponin I for procedure Troponin I with value 1.63 ng/mL. Performed By: #### L [id number] #### [facility] ([facility]) [address] [place] [address] Troponin I.cardiac [Mass/Vol] 1.63 ng/mL Critically high 0.00-0.04 [facility] Comment on above: Result Comment: M-TR OPONIN INITIAL CRITICAL HIGH; RESPUN AND RETESTED Performed By: #### L [id number] ####[facility] ([facility])[address] [place] [address] 30on 10-13-2022 30 The patient is Moderately Stable - Low risk of patient condition declining or worsening The patient's goals for the shift include rest The clinical goals for the shift include vss Over the shift, the patient did not make progress toward the following goals. Barriers to progression include cp. Recommendations to address these barriers include no cp. Normal [facility] POCT GLUCOSE METER UNSOLICIT ED RESULTSon 10-13-2022 Glucose [Mass/Vol] 160 mg/dL High 70-105 [facility] Comment on above: Order Comment: Waive d Testing in the ED is performed under the ED CLIA certificate #[id number]. Result Comment: [email or web address] Performed By: #### L [id number] #### [facility] ([facility]) [address] [place] [address] CHEMISTRYOrdered By: Lab ROP User on 04-26-2022 Glucose [Mass/Vol] 227 mg/dL High 55 - 99 mg/dL [facility] C POC Subsection Comment on above: Result Comment: Radha tony Meter POC Device SN [id number] Invalid Interpretation Code [facility] POC Subsection POC User ID [id number] Invalid Interpretation Code [facility] POC Subsection POC Username LIAM SAWYER Invalid Interpretation Code [facility] POC Subsection Glucose [Mass/Vol] 152 mg/dL High 55 - 99 mg/dL [facility] C POC Subsection Comment on above: Result Comment: Radha tony Meter POC Device SN [id number] Invalid Interpretation Code [facility] POC Subsection POC User ID [id number] Invalid Interpretation Code [facility] POC Subsection POC Username LIAM SAWYER Invalid Interpretation Code [facility] POC Subsection MICRO OTHER TESTSOrdered By: Aurora Dugan on 04-26-2022 Rapid COV Int NEG Ctl Pass (04/26/22 11:03 AM) Normal [facility] Man Sero Rapid COV Int POS Ctl Pass (04/26/22 11:03 AM) Normal [facility] Man Sero SARS-CoV+SARS-CoV-2 (COVID-19) Ag IA.rapid Ql (Resp) Not Detected (04/26/22 11:03 AM) Normal Not Detected [facility] Man Sero CHEMISTRYOrdered By: Lab ROP User on 04-25-2022 Glucose [Mass/Vol] 232 mg/dL High 55 - 99 mg/dL [facility] C POC Subsection Comment on above: Result Comment: Noti jose RN/ POC Device SN [id number] Invalid Interpretation Code [facility] POC Subsection POC User ID [id number] Invalid Interpretation Code [facility] POC Subsection POC Username EFREN MONTOYA Invalid Interpretation Code FT POC Subsection BLOOD BANKOrdered By: Daxa Gomes on 04-24-2022 ABO/Rh Retype Interp Positive Invalid Interpretation Code FT BB Subsection CHEMISTRYOrdered By: SYSTEM SYSTEM on 04-24-2022 Anion gap [Moles/Vol] 11 mmol/L Normal 6 - 16 mEq/L [facility] Remisol Calcium [Mass/Vol] 8.8 mg/dL Low 8.9 - 11.1 mg/dL [facility] Chloride [Moles/Vol] 104 mmol/L Normal 101 - 111 mmol/ L [facility] CK [Catalytic activity/Vol] 344 [iU]/d Invalid Interpretation Code 14 - 261 Int._Unit/L [facility] Comment on above: Result Comment: Amberly staley Result verified by repeat analysis\Critical Result S_CK:[id number] Called to ASTRID FIGUEROA AT 3N by ILAN VALADEZ and read back for confirmation at 04/24/2022 06:42:39 CO2 [Moles/Vol] 27 mmol/L Normal 21 - 31 mmol/L [facility] Creatinine [Mass/Vol] 1.3 mg/dL Normal 0.5 - 1.3 mg/d L [facility] Glucose [Mass/Vol] 292 mg/dL High 55 - 199 mg/dL [facility] Potassium [Moles/Vol] 4.0 mmol/L Normal 3.5 - 5.3 mmol /L [facility] Sodium [Moles/Vol] 138 mmol/L Normal 135 - 145 mmol/L [facility] Troponin I.cardiac [Mass/Vol] 115.40 pg/mL Invalid Interpretation Code 15.90 - 38.40 pg/mL [facility] Comment on above: Result Comment: Amberly ical Result verified by previous result\ Critical Result I_hsTnI:115.4 Called to ASTRID FIGUEROA at 3N by ILAN VALADEZ and read back for confirmation at 04/24/2022 06:42:59 Urea nitrogen [Mass/Vol] 26 mg/dL High 5 - 21 mg/dL [facility] Urea nitrogen/Creatinine [Mass ratio] 20 mg/mg Normal 10 - 20 [facility] Troponin I.cardiac [Mass/Vol] 138.10 pg/mL Invalid Interpretation Code 15.90 - 38.40 pg/mL [facility] Comment on above: Result Comment: Crit ical Result verified by previous result\ Critical Result I_hsTnI:138.1 Called to ASTRID FIGUEROA at 3N by HEMANTH VENTURA and read back for confirmation at 04/24/2022 03:06:42 CHEMISTRYOrdered By: Yamilet Comer on 04-24-2022 HbA1c (Bld) [Mass fraction] 8.4 % High <=5.9% [facility] ChemAutoSS HEMATOLOGYOrdered By: SYSTEM SYSTEM on 04-24-2022 Basophils/100 WBC (Bld) 0.5 % Normal 0.0 - 2.0 % [facility] HemeAutoSS Basophils/Leukocytes Auto (Bld) [Pure # fraction] 0.0 E9/L Normal 0.0 - 0.2 E9/L [facility] HemeAutoSS Eosinophils/100 WBC (Bld) 0.7 % Normal [...] 70.5 % Normal 36.0 - 75.0 % FT HemeAutoSS Neutrophils/Leukocytes Auto (Bld) [Pure # fraction] 5.8 E9/L Normal 2.0 - 7.5 E9/L [facility] HemeAutoSS HEMATOLOGYOrdered By: Rajiv Ventura on 04-24-2022 Erythrocyte distribution width (RBC) [Ratio] 13.6 % Normal 10.9 - 14.2 % [facility] HemeAutoSS Hematocrit (Bld) [Volume fraction] 39.0 % Normal 37.7 - 49.0 % [facility] HemeAutoSS Hemoglobin (Bld) [Mass/Vol] 13.0 g/dL Low 13.5 - 17.5 gm/dL [facility] HemeAutoSS MCH (RBC) [Entitic mass] 29.0 pg Normal 27.0 - 34.0 pg [facility] HemeAutoSS MCHC (RBC) [Mass/Vol] 33.4 g/dL Normal 31.4 - 36.0 gm/dL [facility] HemeAutoSS MCV (RBC) [Entitic vol] 86.7 fL Normal 80.0 - 100.0 fL [facility] HemeAutoSS Platelet mean volume (Bld) [Entitic vol] 8.2 fL Normal 6.4 - 10.8 fL [facility] HemeAutoSS Platelets (Bld) [#/Vol] 136.0 E9/L Low 150.0 - 500.0 E9/L [facility] HemeAutoSS RBC (Bld) [#/Vol] 4.5 E12/L Normal 4.3 - 5.9 E12/L [facility] HemeAutoSS WBC corrected for nucl RBC Auto (Bld) [#/Vol] 8.2 E9/L Normal 4.0 - 11.0 E9/L [facility] HemeAutoSS BLOOD BANKOrdered By: Rajiv Ventura on 04-23-2022 ABO/Rh Interp Positive Invalid Interpretation Code [facility] BB Subsection ABSC Gel Interp Negative (04/23/22 6:46 PM) Normal [facility] BB Subsection CHEMISTRYOrdered By: SYSTEM SYSTEM on 04-23-2022 Troponin I.cardiac [Mass/Vol] 134.80 pg/mL Invalid Interpretation Code 15.90 - 38.40 pg/mL [facility] Remisol Comment on above: Result Comment: Crit ical Result verified by previous result\ Critical Result I_hsTnI:134.8 Called to ARUN GREENBERG at 3N by HEMANTH VENTURA and read back for confirmation at 04/24/2022 00:30:20 Albumin [Mass/Vol] 4.0 g/dL Normal 3.3 - 5.0 gm/dL [facility] Albumin/Globulin [Mass ratio] 1.1 {ratio} Normal [...] Bilirubin [Mass/Vol] 0.7 mg/dL Normal 0.0 - 1.1 mg/dL [facility] Bilirubin.direct [Mass/Vol] 0.2 mg/dL Normal 0.1 - 0.4 mg/dL [facility] Bilirubin.indirect [Mass or moles/Vol] 0.5 mg/dL Normal 0.1 - 0.9 mg/dL [facility] Calcium [Mass/Vol] 9.1 mg/dL Normal 8.9 - 11.1 mg/dL [facility] Chloride [Moles/Vol] 100 mmol/L Low 101 - 111 mmol/ L [facility] CO2 [Moles/Vol] 28 mmol/L Normal 21 - 31 mmol/L [facility] Cocaine Ql (U) Negative (04/23/22 6:46 PM) Normal Negative [facility] Creatinine [Mass/Vol] 1.6 mg/dL High 0.5 - 1.3 mg/d L [facility] Ethanol [Mass/Vol] mg/dL Normal <=7mg/dL [facility] Globulin (S) [Mass/Vol] 3.5 g/dL Normal 1.4 - 4.0 gm/dL [facility] Glucose [Mass/Vol] 354 mg/dL High 55 - 199 mg/dL [facility] Lactate [Mass/Vol] 1.5 mmol/L Normal 0.5 - 2.2 mmol/L [facility] Lipase [Catalytic activity/Vol] 27 U/L Normal 13 - 58 unit/L [facility] Opiates Screen Ql (U) Negative (04/23/22 6:46 PM) Normal Negative [facility] Phencyclidine Screen method >25 ng/mL Ql (U) Negative (04/23/22 6:46 PM) Normal Negative [facility] Potassium [Moles/Vol] 4.3 mmol/L Normal 3.5 - 5.3 mmol /L [facility] Protein [Mass/Vol] 7.5 g/dL Normal 6.0 - 7.8 gm/dL [facility] Remisol Sodium [Moles/Vol] 138 mmol/L Normal 135 - 145 mmol/L [facility] Tetrahydrocannabinol Screen method >50 ng/mL Ql (U) Negative (04/23/22 6:46 PM) Normal Negative [facility] Urea nitrogen [Mass/Vol] 29 mg/dL High 5 - 21 mg/dL [facility] Urea nitrogen/Creatinine [Mass ratio] 18 mg/mg Normal 10 - 20 [facility] COAGULATIONOrdered By: Jose Almonte on 04-23-2022 [...] 44.5 % Normal 37.7 - 49.0 % [facility] HemeAutoSS Hemoglobin (Bld) [Mass/Vol] 14.6 g/dL Normal [...] 151.0 E9/L Normal 150.0 - 500.0 E9/L [facility] HemeAutoSS RBC (Bld) [#/Vol] 5.0 E12/L Normal 4.3 - 5.9 E12/L [facility] HemeAutoSS WBC corrected for nucl RBC Auto (Bld) [#/Vol] 7.1 E9/L Normal 4.0 - 11.0 E9/L [facility] HemeAutoSS ECHOCARDIO M/2D COMPLETEon 0 02-18-2022 ECHOCARDIO M/2D COMPLETE Patient: ZAIRA SEGURA Exam Date: 02/18/2022 : 1935 Gender:M Ordering : TARA CARDENAS Admission #: [id number] Family : DR DOMINGO MEDRANO . Order #: [id number] CLICK HERE TO VIEW EXAM ECHOCARDIOGRAM REPORT [...] You M.D. on 02/19/2022 at 14:03 Normal [facility] BNPon 07-28-2021 Natriuretic peptide B (Bld) [Mass/Vol] 157.0 pg/mL Normal <=1,800.0 [facility] Comment on above: Performed By: #### B DATE NIGHT CAREGIVER #### [facility] [address] [address] [address] Nitish Thakur Vancomycin,Troughon 09-04-19 21 Vancomycin,Trough 16.5 ug/mL Normal 10.0-20.0 [facility] Comment on above: Result Comment: Last dose: - PERFORMED BY: [place] [address] PATHOLOGIST MANAGER VEHICLE KATE LOTT M.D. Performed By: #### V ANCT #### [address] Vital Signs Date Time Vital Sign Value Performing Clinician Ely crandall 08-16-2024 12:53-0400 Body height 185.4 cm Christopher Bohach DPM Work Phone: [facility] 08-16-2024 12:53-0400 Body mass index (BMI) [Ratio] 29.55 kg/m2 Christopher Bohach DPM Work Phone: [facility] 08-16-2024 12:53-0400 Body weight 101.61 kg Christopher Bohach DPM Work Phone: [facility] 08-16-2024 12:53-0400 Diastolic blood pressure 51 mm[Hg] Christopher Bohach DPM Work Phone: [facility] 08-16-2024 12:53-0400 Heart rate 58 /min Christopher Bohach DPM Work Phone: [facility] 08-16-2024 12:53-0400 Systolic blood pressure 101 mm[Hg] Christopher Bohach DPM Work Phone: [facility] 12-09-2023 12:52-0400 Body height 185.4 cm Christopher Bohach DPM Work Phone: [facility] 12-09-2023 12:52-0400 Body mass index (BMI) [Ratio] 29.55 kg/m2 Christopher Bohach DPM Work Phone: [facility] 12-09-2023 12:52-0400 Body weight 101.61 kg Patrick Silver DPM Work Phone: [facility] 12-09-2023 12:52-0400 Diastolic blood pressure 50 mm[Hg] Patrick Tamayoach DPM Work Phone: [facility] 12-09-2023 12:52-0400 Heart rate 64 /min Christsharmaineer Bohach DPM Work Phone: [facility] 12-09-2023 12:52-0400 Respiratory rate 16 /min Patrick Silver DPM Work Phone: [facility] 12-09-2023 12:52-0400 Systolic blood pressure 101 mm[Hg] Patrick Bohach DPM Work Phone: [facility] 04-26-2022 12:52-0400 Hourly Rounding Sixto RENATO [facility] 04-26-2022 12:52-0400 Promise to Return Sixto RENATO [facility] 04-26-2022 11:52-0400 Hourly Rounding Sixto RENATO [facility] 04-26-2022 11:52-0400 Promise to Return Sixto RENATO [facility] 04-26-2022 11:39-0400 gluc 227 mg/dL Sixto RENATO [facility] 04-26-2022 11:00-0400 Body temperature 98.06 [degF] Sitxo RENATO [facility] 04-26-2022 11:00-0400 Heart rate 66 /min Sixto RENATO [facility] 04-26-2022 11:00-0400 SaO2% (BldA) [Mass fraction] 97 % Sixto RENATO [facility] 04-26-2022 11:00-0400 Systolic blood pressure 164 mm[Hg] Sixto RENATO [facility] 04-26-2022 10:36-0400 Hourly Rounding Sixto RENATO [facility] 04-26-2022 10:36-0400 Promise to Return Sixto RENATO [facility] 04-26-2022 08:50-0400 Diastolic blood pressure 76 mm[Hg] Sixto RENATO [facility] 04-26-2022 08:50-0400 Heart rate 76 /min Sixto RENATO [facility] 04-26-2022 08:50-0400 Systolic blood pressure 126 mm[Hg] Sixto RENATO [facility] 04-26-2022 08:00-0400 Body temperature 98.42 [degF] Sixto RENATO [facility] 04-26-2022 07:30-0400 Heart rate 69 /min Sixto RENATO [facility] 04-26-2022 07:30-0400 Mean blood pressure 93 mm[Hg] Sixto RENATO [facility] 04-26-2022 07:30-0400 Respiratory rate 16 /min Sixto RENATO [facility] 04-26-2022 05:24-0400 Body temperature 97.52 [degF] Sixto RENATO [facility] 04-26-2022 05:24-0400 Mean blood pressure 102 mm[Hg] Sixto RENATO [facility] 04-26-2022 05:24-0400 Respiratory rate 16 /min Sixtoelvira VILCHISSLIN [facility] 04-26-2022 05:24-0400 SaO2% (BldA) [Mass fraction] 98 % Sixto RENATO [facility] 04-26-2022 01:00-0400 Heart rate 67 /min Sixto RENATO [facility] 04-26-2022 01:00-0400 Mean blood pressure 100 mm[Hg] Sixto RENATO [facility] 04-26-2022 01:00-0400 Respiratory rate 16 /min Sixto RENATO [facility] 04-25-2022 18:56-0400 Blood Pressure Location Sixtoelvira VILCHISSLIN [facility] 04-25-2022 18:32-0400 Heart rate 80 /min Sixtoelvira VILCHISSLIN [facility] 04-25-2022 16:40-0400 Heart rate 72 /min Sixto RENATO [facility] 04-25-2022 15:10-0400 Mean blood pressure 111 mm[Hg] Sixto RENATO [facility] 04-25-2022 10:56-0400 Mean blood pressure 101 mm[Hg] Sixto RENATO [facility] 04-25-2022 07:00-0400 Body temperature 97.88 [degF] Sixto RENATO [facility] 04-25-2022 00:12-0400 Mean blood pressure 100 mm[Hg] Sixto RENATO [facility] 04-25-2022 00:00-0400 Blood Pressure Location Sixto RENATO [facility] 04-25-2022 00:00-0400 Body temperature 98.24 [degF] Sixto GROSS [facility] 04-24-2022 08:08-0400 Body temperature 99.14 [degF] Sixto GROSS [facility] Encounters Encounter Date Encounter Type Care Provider Facility Start: 12-20-2024 ambulatory Gilson Salgado Facility :[facility] Start: 09-12-2024 ambulatory [facility]ISH [facility] Start: 08-16-2024 End: 08-16-2024 Bamboo flowsheet Patrick Silver DPM Work Phone: [facility] Start: 08-16-2024 End: 08-16-2024 Bamboo flowsheet Patrick Silver DPM Work Phone: [facility] Start: 08-16-2024 End: 08-16-2024 Patient encounter procedure Patrick Silver DPM Work Phone: [facility] Comment on above: Diabetic polyneuropa thy associated with type 2 diabetes mellitus (HCC) (Primary Dx); Onychomycosis; Corns and callosities Start: 08-16-2024 End: 08-16-2024 ambulatory PATRICK SILVER Not Available Start: 08-07-2024 End: 08-07-2024 ambulatory GIRISH BECKER Facility:[facility] Start: 06-04-2024 End: 06-04-2024 Lab Drop off Gilson Salgado [facility] Start: 06-04-2024 End: 06-04-2024 ambulatory MD Gilson Salgado Facility:[facility] Start: 04-17-2024 End: 04-17-2024 ambulatory PATRICK SILVER Not Available Start: 03-05-2024 End: 03-05-2024 ambulatory Gilson Salgado Facility:[facility] Start: 12-15-2023 End: 12-15-2023 ambulatory Gilson Salgado Facility:[facility] Start: 12-09-2023 End: 12-09-2023 Bamboo flowsheet Patrick Silver DPM Work Phone: [facility] Start: 12-09-2023 End: 12-09-2023 Bamboo flowsheet Patrick Silver DPM Work Phone: [facility] Start: 12-09-2023 End: 12-09-2023 Patient encounter procedure Patrick Silver DPM Work Phone: [facility] Comment on above: Diabetic polyneuropa thy associated with type 2 diabetes mellitus ([facility]/HCC) (Primary Dx); Onychomycosis Start: 12-09-2023 End: 12-09-2023 ambulatory PATRICK SILVER Not Available Start: 11-01-2023 End: 11-01-2023 ambulatory [facility] Start: 09-20-2023 End: 09-20-2023 ambulatory [facility] Start: 08-02-2023 ambulatory Gilson Salgado Facility :[facility] Start: 08-02-2023 End: 08-02-2023 Lab Drop off Gilson Salgado [facility] Start: 08-02-2023 End: 08-02-2023 ambulatory Gilson Salgado Facility:[facility] Start: 07-25-2023 End: 07-25-2023 ambulatory [facility] Start: 07-18-2023 End: 07-18-2023 ambulatory GIRISH BECKER Facility:[facility] Start: 06-23-2023 End: 06-23-2023 ambulatory [facility] Start: 06-02-2023 End: 06-02-[facility] Start: 05-05-2023 [facility]: 05-02-2023 End: 05-02-2023 ambulatory Gilson Salgado Facility:[facility] Start: 04-20-2023 End: 04-20-2023 Lab Drop off Gilson Salgado [facility] Start: 04-20-2023 End: 04-20-2023 ambulatory Gilson Salgado Facility:[facility] Start: 01-11-2023 End: 01-11-2023 [facility] Start: 10-26-2022 End: 10-26-2022 ambulatory [facility] Start: 10-18-2022 Evaluation and manag ement of inpatient [facility] Start: 10-14-2022 Evaluation and manag ement of inpatient [facility] Start: 10-14-2022 Evaluation and manag ement of inpatient WILBUR SLIME [facility] Start: 10-13-2022 End: 10-19-2022 Evaluation and management of inpatient RADHA YVETTE [facility] Start: 07-07-[address] [facility] Facility:H 1 Start: 06-08-2022 End: 06-08-2022 Lab Drop off Gilson Salgado [facility] Start: 04-26-[address] YASEMIN ALBRIGHT Facility :H1 Start: 04-23-2022 End: 04-26-2022 Observation Sixto GROSS [facility] Start: 04-08-2022 End: 04-08-2022 ambulatory CRICKET TIERNEY Facility:H1 Start: 03-11-2022 End: 03-11-2022 ambulatory CRICKET TIERNEY Facility:H1 Start: 02-24-2022 [facility]H [facility] Start: 02-18-2022 End: 02-19-2022 [facility] Start: 12-28-2021 End: 12-29-2021 ambulatory [facility] Facility:H1 Start: 10-26-2021 End: 10-27-2021 ambulatory [facility] Facility:H1 Start: 09-28-2021 End: 09-29-2021 ambulatory [facility] Facility:H1 Start: 08-21-2021 End: 08-22-2021 ambulatory [facility] Facility:H1 Start: 07-31-2021 End: 08-01-2021 ambulatory [facility] Facility:H1 Start: 07-28-2021 End: 07-29-[address] RODRIGUEZ LISTED REQUEST Facility:H1 Start: 07-24-2021 End: 07-25-2021 ambulatory [facility] Facility:H1 Procedures Date Procedure Procedure Detail Performing Clinician Start: 07-21-2022 Cardiac catheter (ph ysical object) Gilson Salgado Angioplasty of blood vessel Sixto GROSS Comment on above: Rt leg 2020 Cataract (disorder) Gilson stewart Comment on above: summer 2022 Inguinal hernia (disorder) Lidia GROSS Stent, device (physi maribel object) Sixto GROSS Comment on above: Rt Leg 2020 Surgical procedure Sixto WHITE Comment on above: Rt foot for infectio n Plan of Treatment Date Care Activity Detail Author Start: 12-20-2024 End: 12-20-2024 Patient encounter procedure 12/20/2024 2:00 PM EST Procedure Visit [facility] [address] [place] [id number] Patrick Silver DPM [address] [place] [address] [facility] Start: 10-08-2024 Influenza vaccination Influenza Vacc ine (#1) [facility] Start: 08-16-2024 End: 08-16-2024 Patient encounter procedure 08/16/2024 1:15 PM EDT Procedure Visit [facility] [address] [place] [phone] Patrick Silver, DPM [address] [place] [address] Arrived [facility] Comment on above: Arrived Start: 04-10-2024 End: 04-10-2024 Patient encounter procedure 04/10/2024 1:30 PM EST Procedure Visit [facility] [address] [place] [address] Patrick Silver, DPM [address], [place] [id number] [facility] Start: 12-09-2023 End: 12-09-2023 Patient encounter procedure 12/09/2023 1:00 PM EDT Procedure Visit [facility] [address] [place] [address] Patrick Silver, DPM [address], [place] [id number] Arrived [facility] Comment on above: Arrived Start: 10-09-2023 Influenza vaccination Influenza Vacc ine (#1) [facility] Immunizations Immunization Date Immunization Notes Care Provider Fa cili 01-04-2022 pneumococcal 20-anne marie nt conjugate vaccine Sixto GROSS [facility] 01-04-2022 SARS-CoV-2 (COVID-19 ) mRNAMUL.[id number] Sixto GROSS [facility] 12-08-2020 SARS-CoV-2 (COVID-19 ) mRNA BNT-162b2 vax Sixto RENATO [facility] Comment on above: Result Comment: 2022: [id number] 06-04-2020 SARS-CoV-2 (COVID-19 ) mRNA BNT-162b2 [facility]ax [facility] 05-14-2020 SARS-CoV-2 (COVID-19 ) mRNA BNT-162b2 vax [employer] NEGATED: Highlighted row has not occurred!07-18-2023 influenza virus vaccine, unspecified formulation Gilson Salgado [facility] Payers Date Payer Category Payer Medicare [id number] 2022 Unknown [id number] 2022 Private Health Insurance RANJEET aldana .[id number] .[id number] 1957 Medicare [id number] 1959 Self-pay [id number] 1959 Unknown [id number] 1937 Unknown [id number] ..840.1.908295.3.579.2 .593 1937 Unknown [id number] 2.16.840.1.819035.3.579.2 .593 1937 Unknown [id number] 2.16.840.1.894297.3.579.2 .593 1937 Unknown [id number] 2.16.840.1.743253.3.579.2 .593 1937 Unknown [id number] 2.16.840.1.529763.3.579.2 .593 1937 Unknown [id number] 2.16.840.1.927409.3.579.2 .593 1937 Unknown [id number] 2.16.840.1.720512.3.579.2 .593 1937 Unknown [id number] 2.16.840.1.555384.3.579.2 .593 1937 Unknown [id number] 2.16.840.1.529336.3.579.2 .593 1937 Unknown [id number] 2.16.840.1.150339.3.579.2 .593 1937 Unknown [id number] 2.16.840.1.430802.3.579.2 .593 1937 Unknown [id number] 2.16.840.1.043443.3.579.2 .593 1937 Unknown [id number] 2.16.840.1.125099.3.579.2 .593 1937 Unknown [id number] 2.16.840.1.962285.3.579.2 .593 1937 Unknown [id number] 2.16.840.1.828665.3.579.2 .727 1937 Unknown [id number] 2.16.840.1.037282.3.579.2 .727 1937 Unknown [id number] 2.16.840.1.376741.3.579.2 .727 1937 Unknown [id number] 2.16.840.1.730106.3.579.2 .72 1937 Unknown [id number] 2.16.840.1.356859.3.579.2 .72 1937 Unknown [id number] 2.16.840.1.720121.3.579.2 .72 1937 Unknown [id number] 2.16840.1.004756.3.579.2 .72 1937 Unknown [id number] 2.16840.1.459373.3.579.2 .1937 Unknown [id number] 2.840.1.496733.3.579.2 .1937 Unknown [id number] 2.840.1.805150.3.579.2 1937 Unknown [id number] 2.16840.1.677573.3.579.2 .72 1937 Unknown [id number] 2.840.1.174650.3.579.2 .1937 Unknown [id number] 2.840.1.603041.3.579.2 .1937 Unknown [id number] 2.840.1.729129.3.579.2 .1937 Unknown [id number] 2.840.1.721727.3.579.2 .72 1937 Unknown [id number] 2.16840.1.824648.3.579.2 .1259 1937 Unknown [id number] 2.16840.1.365399.3.579.2 .1259 1937 Unknown [id number] 2.840.1.877550.3.579.2 .1259 Social History Date Type Detail Facility Tobacco smoking status [facility] Start: 08-18-2023 End: 08-16-2024 Sex Assigned At Male [facility] Start: 06-08-2022 End: 11-02-2022 Tobacco smoking status Never smoked tobacco (finding) [facility] Comment on above: denies denies use. Tobacco smoking status Never [facility] Comment on above: denies denies use. Start: 11-02-2022 Tobacco use and exposure Smokeless tobacco non-user [facility] Start: 08-18-2023 End: 08-16-2024 Alcoholic beverage intake Lifetime non-drinker (finding) [facility] Start: 08-18-2023 End: 08-16-2024 History of Social function [facility] Start: 1935 Sex assigned at Not on file [facility] Sex Male (finding) [facility] Medical Equipment Procedure Code Equipment Code Equipment [...] pen needle 4mm x 32g E11.9, [id number], Supply, 180, cm, 11/19/22 9:02:00 EDT, Height/Length Dosing, 102.7, kg, 11/19/22 9:02:00 EDT, Weight Dosing Start: 02-25-2023 USE 3 TIMES GLORIA Y WITH INSULIN Start: 04-19-2022 pen needles, See Instructions, 300 EA, 2, BD UF maida pen needle 4mm x 32g E11.9, [id number], Supply, 180, cm, 05/02/23 11:04:00 EDT, Height/Length Dosing, 109.2, kg, 05/02/23 11:02:00 EDT, Weight Dosing Start: 05-09-2023 USE 3 TIMES GLORIA Y WITH INSULIN Start: 04-19-2022 pen needles, See Instructions, 300 EA, 2, BD UF maida pen needle 4mm x 32g E11.9, [id number], Supply, 182, cm, 11/01/23 13:55:00 EDT, Height/Length Dosing, 109, kg, 11/01/23 13:55:00 EDT, Weight Dosing Start: 11-02-2023 Functional Status Date Assessment Result Facility 04-23-2022 Functional Status N/A [facility] 04-23-2022 Functional Status [facility] Clinical Notes 03-11-2022 to 08-16-2024 Patrick Silver, AARON - 08/16/2024 1:15 PM EDTChshadi Silver DPM - 12/09/2023 1:00 PM EDT Note Date & Type Note Facility 08-16-2024 History of Present illness Narrative Zaira Segura III is a 89 y.o. male [...] nails. History of ulcers/wounds: no. PCP Dr. Gilson Salgado Date of Last visit 03/05/24 Aggravated by [...] 5mm. 2Long, Thick, Crumbly, Deformed, Discolored, Brittle, [id number]. 3Long, Thick, Crumbly, Discolored,Dystrophic 3mm 4Long, Thick, . 5Long, Thick, Crumbly, Deformed, Discolored, Brittle, [id number]. Nail Pathology: Right Foot: 1 (great toe)Long, Thick, Crumbly, Deformed, Discolored, Brittle, Dystrophic 5mm. 2Long, Thick, Crumbly, Deformed, Discolored, Brittle, [id number]. 3Long, Thick, Crumbly, Deformed, Discolored, Brittle, [id number] 4Long, Thick, Crumbly, Deformed, Discolored, Brittle, Dystrophic, 4mm 5Long, Thick, Crumbly, Deformed, Discolored, Brittle, [id number]. Orthopedic: DEFORMITIES: Bilateral digital deformities. MUSCLE STRENGTH [...] a #15 blade documented in this encounter [facility] 08-07-2024 Note Patient Education Endocrinology Hyperglycemia Hyperglycemia is when the sugar (glucose) level in your blood is too high. High blood sugar can happen to people who have or do not have diabetes. High blood sugar can happen quickly. It can be an emergency. What are the causes? If you have diabetes, high blood sugar may be caused by: ??? Medicines that increase blood sugar or affect your control of diabetes. ??? Getting less physical activity. ??? Overeating. ??? Being sick or injured or having an infection. ??? Having surgery. ??? Stress. ??? Not giving yourself enough insulin (if you are taking it). You may have high blood sugar because you have diabetes that has not been diagnosed yet. If you do not have diabetes, high blood sugar may be caused by: ??? Certain medicines. ??? Stress. ??? A bad illness. ??? An infection. ??? Having surgery. ??? Diseases of the pancreas. What increases the risk? This condition is more likely to develop in people who have risk factors for diabetes, such as: ??? Having a family member with diabetes. ??? Certain conditions in which the body's defense system (immune system) attacks itself. These are called autoimmune disorders. ??? Being overweight. ??? Not being active. ??? Having a condition called insulin resistance. ??? Having a history of: ? Prediabetes. ? Diabetes when . ? Polycystic ovarian syndrome (PCOS). What are the signs or symptoms? This condition may not cause symptoms. If you do have symptoms, they may include: ??? Feeling more thirsty than normal. ??? Needing to pee (urinate) more often than normal. ??? Hunger. ??? Feeling very tired. ??? Blurry eyesight (vision). You may get other symptoms as the condition gets worse, such as: ??? Dry mouth. ??? Pain in your belly (abdomen). ??? Not being hungry (loss of appetite). ??? Breath that smells fruity. ??? Weakness. ??? Weight loss that is not planned. ??? A tingling or numb feeling in your hands or feet. ??? A headache. ??? Cuts or bruises that heal slowly. How is this treated? Treatment depends on the cause of your condition. Treatment may include: ??? Taking medicine to control your blood sugar levels. ??? Changing your medicine or dosage if you take insulin or other diabetes medicines. ??? Lifestyle changes. These may include: ? Exercising more. ? Eating healthier foods. ? Losing weight. ??? Treating an illness or infection. ??? Checking your blood sugar more often. ??? Stopping or reducing steroid medicines. If your condition gets very bad, you will need to be treated in the hospital. Follow these instructions at home: General instructions ??? Take okjk-jkw-ybbfyxv and prescription medicines only as told by your doctor. ??? Do not smoke or use any products that contain nicotine or tobacco. If you need help quitting, ask your doctor. ??? If you drink alcohol: ? Limit how much you have to: ? 0?1 drink a day for women who are not . ? 0?2 drinks a day for men. ? Know how much alcohol is in a drink. In the [place] one drink equals one 12 oz bottle of beer (355 mL), one 5 oz glass of wine (148 mL), or one 1? oz glass of hard liquor (44 mL). ??? Manage stress. If you need help with this, ask your doctor. ??? Do exercises as told by your doctor. ??? Keep all follow-up visits. Eating and drinking ??? Stay at a healthy weight. ??? Make sure you drink enough fluid when you: ? Exercise. ? Get sick. ? Are in hot temperatures. ??? Drink enough fluid to keep your pee (urine) pale yellow. If you have diabetes: ??? Know the symptoms of high blood sugar. ??? Follow your diabetes management plan as told by your doctor. Make sure you: ? Take insulin and medicines as told. ? Follow your exercise plan. ? Follow your meal plan. Eat on time. Do not skip meals. ? Check your blood sugar as often as told. Make sure you check before and after exercise. If you exercise longer or in a different way, check your blood sugar more often. ? Follow your sick day plan whenever you cannot eat or drink normally. Make this plan ahead of time with your doctor. ??? Share your diabetes management plan with people in your workplace, school, and household. ??? Check your pee for ketones when you are ill and as told by your doctor. ??? Carry a card or wear jewelry that says that you have diabetes. Where to find more information [place] [employer]: www.diabetes.org Contact a doctor if: ??? Your blood sugar level is at or above 240 mg/dL (13.3 mmol/L) for 2 days in a row. ??? You have problems keeping your blood sugar in your target range. ??? You have high blood pressure often. ??? You have signs of illness, such as: ? Feeling like you may vomit (feeling nauseous). ? Vomiting. ? A fever. Get help right away if: ??? Your blood sugar monitor reads high even when (more content not included)... [facility] 12-15-2023 Note Patient Education Chronic Kidney Disease, Adult Chronic kidney disease is when lasting damage happens to the kidneys slowly over a long time. The kidneys help to: ??? Make pee (urine). ??? Make hormones. ??? Keep the right amount of fluids and chemicals in the body. Most often, this disease does not go away. You must take steps to help keep the kidney damage from getting worse. If steps are not taken, the kidneys might stop working forever. What are the causes? Diabetes. ??? High blood pressure. ??? Diseases that affect the heart and blood vessels. ??? Other kidney diseases. ??? Diseases of the body's disease-fighting system. ??? A problem with the flow of pee. ??? Infections of the organs that make pee, store it, and take it out of the body. ??? Swelling or irritation of your blood vessels. What increases the risk? Getting older. ??? Having someone in your family who has kidney disease or kidney failure. ??? Having a disease caused by genes. ??? Taking medicines often that harm the kidneys. ??? Being near or having contact with harmful substances. ??? Being very overweight. ??? Using tobacco now or in the past. What are the signs or symptoms? Feeling very tired. ??? Having a swollen face, legs, ankles, or feet. ??? Feeling like you may vomit or vomiting. ??? Not feeling hungry. ??? Being confused or not able to focus. ??? Twitches and cramps in the leg muscles or other muscles. ??? Dry, itchy skin. ??? A taste of metal in your mouth. ??? Making less pee, or making more pee. ??? Shortness of breath. ??? Trouble sleeping. You may also become anemic or get weak bones. Anemic means there is not enough red blood cells or hemoglobin in your blood. You may get symptoms slowly. You may not notice them until the kidney damage gets very bad. How is this treated? Often, there is no cure for this disease. Treatment can help with symptoms and help keep the disease from getting worse. You may need to: ??? Avoid alcohol. ??? Avoid foods that are high in salt, potassium, phosphorous, and protein. ??? Take medicines for symptoms and to help control other conditions. ??? Have dialysis. This treatment gets harmful waste out of your body. ??? Treat other problems that cause your kidney disease or make it worse. Follow these instructions at home: Medicines ??? Take tomk-xts-wtaerms and prescription medicines only as told by your doctor. ??? Do not take any new medicines, vitamins, or supplements unless your doctor says it is okay. Lifestyle ??? Do not smoke or use any products that contain nicotine or tobacco. If you need help quitting, ask your doctor. ??? If you drink alcohol: ? Limit how much you use to: ? 0?1 drink a day for women who are not . ? 0?2 drinks a day for men. ? Know how much alcohol is in your drink. In the [place] one drink equals one 12 oz bottle of beer (355 mL), one 5 oz glass of wine (148 mL), or one 1? oz glass of hard liquor (44 mL). ??? Stay at a healthy weight. If you need help losing weight, ask your doctor. General instructions ??? Follow instructions from your doctor about what you cannot eat or drink. ??? Track your blood pressure at home. Tell your doctor about any changes. ??? If you have diabetes, track your blood sugar. ??? Exercise at least 30 minutes a day, 5 days a week. ??? Keep your shots (vaccinations) up to date. ??? Keep all follow-up visits. Where to find more information ??? [place] [employer] of Kidney Patients: www.aakp.org ??? National Kidney Foundation: www.kidney.org ??? [place] [employer]: www.akfinc.org ??? Life Options: www.lifeoptions.org ??? Kidney School: www.kidneyschool.org Contact a doctor if: ??? Your symptoms get worse. ??? You get new symptoms. Get help right away if: ??? You get symptoms of end-stage kidney disease. These include: ? Headaches. ? Losing feeling in your hands or feet. ? Easy bruising. ? Having hiccups often. ? Chest pain. ? Shortness of breath. ? Lack of menstrual periods, in women. ??? You have a fever. ??? You make less pee than normal. ??? You have pain or you bleed when you pee or poop. These symptoms may be an emergency. Get help right away. Call your local emergency services (911 in the [place] ??? Do not wait to see if the symptoms will go away. ??? Do not drive yourself to the hospital. Summary ??? Chronic kidney disease is when lasting damage happens to the kidneys slowly over a long time. ??? Causes of this disease include diabetes and high blood pressure. ??? Often, there is no cure for this disease. Treatment can help symptoms and help keep the disease from getting worse. ??? Treatment may involve lifestyle changes, medicines, and dialysis. This information is not intended to replace advice given to you by your health care p (more content not included)... [facility] 12-09-2023 History of Present illness Narrative Zaira Segura III is a 88 y.o. male presents with chief complaint of Toenail Care HPI: HPI Pt has a healing scab Left lower leg. He denies pain and drainage today. It started as a stasis blister that popped the end of July. He is leaving it open to air. He finished kelfex about a week ago. He denies pain. He was recently put on Lasix. Edema mngmt difficult and not taking lasix everyday as directed. Knocked scab off this AM when getting dressed- left leg SUBJECTIVE: Diabetic/Routine Nail Care: Location: nails on bilateral feet. Severity of symptoms: mild numb/tingle. Onset:gradual. Status:no change. Context: hard to trim, hard to reach. NAILS-thickened, discolored, pain. Relieved by debridement, filing down nails, clipping nails. History of ulcers/wounds: no. PCP Dr. Gilson Salgado. Date of Last visit 11/01/23 Aggravated by shoe gear, pressure Blood thinners Diabetes Last BS 70 this am NEPHEW present MEDICATIONS: Current Outpatient Medications Medication Instructions atorvastatin (LIPITOR) 20 mg, Oral, Nightly Eliquis 5 mg, Oral, 2 times daily Farxiga 5 mg, Oral, Daily Folinic Acid-Vit B6-Vit B12 (Folinic-Plus) 4-50-2 MG tablet 1 capsule, Oral, Daily furosemide (Lasix) 20 MG tablet PLEASE SEE ATTACHED FOR DETAILED DIRECTIONS HumaLOG KWIKPEN 100 UNIT/ML injection See Instructions, test and cover ac and hs 151-200 3u, 201-250 6u, 251-300 9u and >351 15u. Max of 10 units a day, # 15 mL, Refills(s) 0, Pharmacy: [facility] #[id number], 182, cm, 06/08/22 13:43:00 EDT, Height/Length Dosing, 107, kg, 06/08/22 13:43:00 E... insulin glargine (LANTUS) 30 Units, Subcutaneous, 2 times daily isosorbide mononitrate ER (IMDUR) 30 mg, Oral, Daily RT losartan (COZAAR) 25 mg, Oral, Daily metoprolol tartrate (LOPRESSOR) 100 mg ALLERGIES: Allergies Allergen Reactions Niacin Rash REVIEW OF SYMPTOMS: Review of Systems OBJECTIVE: Visit Vitals BP 101/50 Pulse 64 Resp 16 Ht 6' 1 Wt 224 lb BMI 29.55 kg/m Smoking Status Never BSA 2.29 m Physical Exam General Examination: GENERAL APPEARANCE:alert, well hydrated, in no distress , awake, aware of surroundings . FOOT EXAM: Date of Last Foot Exam Sensory testing performed: sensations diminished Dermatologic: SKIN FINDINGS:rt sub 1 mild callus/scar NAIL PATHOLOGY:digits 1-5 bilateral are intact. atrophic skin with neg digital hair and hyperpigmentation. ULCER: 1x3cm superficial wound dist lat left 7leg ankle. No redness or swelling, mild serous drainage Nail Pathology: Left Foot: 1 (great toe)Long, Thick, Crumbly, Deformed, Discolored, Brittle, Dystrophic 5mm. 2Long, Thick, Crumbly, Deformed, Discolored, Brittle, [id number]. 3Long, Thick, Crumbly, Discolored,Dystrophic 3mm 4Long, Thick, . 5Long, Thick, Crumbly, Deformed, Discolored, Brittle, [id number]. Nail Pathology: Right Foot: 1 (great toe)Long, Thick, Crumbly, Deformed, Discolored, Brittle, Dystrophic 5mm. 2Long, Thick, Crumbly, Deformed, Discolored, Brittle, [id number]. 3Long, Thick, Crumbly, Deformed, Discolored, Brittle, [id number] 4Long, Thick, Crumbly, Deformed, Discolored, Brittle, Dystrophic, 4mm 5Long, Thick, Crumbly, Deformed, Discolored, Brittle, [id number]. Orthopedic: DEFORMITIES: Bilateral digital deformities. MUSCLE STRENGTH [...] Assessment/Plan DM neuropathy stable, mycotic nails - healing wound left ankle, stasis. No drsg or reg wounds care in palce Nails: all thick and dystrophic nails debrided of all affected and loose material Prim care treating wound Care offered and discussed with improved compression and compliance with meds documented in this encounter [facility] 11-01-2023 Note Patient Education Cardiovascular Hypertension, Adult High blood [...] 5 oz glass of wine (148 mL), (more content not included)... [facility] 09-20-2023 Note [place] [facility] Consul t Note Reason for visit: hospital follow upx2 s/p PCI of LAD and LCX 10/08/22, needs CABG but refused 09/20/23 Patient's was seen by Marlyn Gu in June after his beta-farzad dosage was increased due to PACs. He denied chest pain shortness of breath or syncope or any bleeding issues with Eliquis. He has some issues with hypoglycemia and there was a discussion about stopping Farxiga Prior HPI: Zaira Segura III is a 88 y.o. year old with past medical history of severe calcified CAD, acute on chronic HFrEF with EF 40%, CKD stage III, hypertension, and hyperlipidemia, atrial flutter, dm2, PAD. He has history of severe triple-vessel disease and has refused CABG in the past, He was just recently admitted to [facility] and had PCI of LAD and LCx [...] atrial flutter while he was inpatient at [facility] for a foot wound. He was started on Eliquis and beta-blockers at that time. Since then he has been battling the issue of his right foot infection. He is very unhappy about his foot situation saying that this is limited his activity. He used to previously bike a lot specially many was in [place]. He denied any active chest pain but [...] Expenses: Not hard at all Food Insecurity: No Food Insecurity (10/13/2022) Hunger Vital Sign Worried About Running Out of Food in the Last Year: Never true Ran Out of Food in the Last Year: Not on file Transportation Needs: No Transportation Needs (10/13/2022) Transportation Lack of Transportation (Medical): No Lack of Transportation (Non-Medical): Not on file Physical Activity: Not on file Stress: Not on file Social Connections: Not on file Intimate Partner Violence: Not At Risk (10/13/2022) [place] Safety & Environment Fear of Current or Ex-Partner: No Emotionally Abused: Not on file Physically Abused: Not on file Sexually Abused: Not on file Physically or Sexually Abused: Not on file Depression: Not on file Housing Stability: Low Risk (10/13/2022) Housing Stability Vital Sign Unable to Pay for Housing in the Last Year: Not on file Number of Places Lived in the Last Year: Not on file Unstable Housing in the Last Year: No Utilities: Not on file Allergies: Allergies Allergen Reactions Multivitamin Unknown Niacin Cause sweating Weight: 107kg Vitals: 09/20/23 1315 BP: 124/62 Pulse: 56 SpO2: 95% Meds: Current Outpatient Medications on File Prior to Visit Medication Sig Dispense Refill apixaban (Eliquis) 5 mg tablet Take 1 tablet (5 mg) by mouth in the morning and at bedtime. 180 tablet 3 atorvastatin (Lipitor) 20 mg tablet Take 1 tablet (20 mg) by mouth at bedtime. 90 tablet 3 furosemide (Lasix) 20 mg tablet Take 1 tablet (20 mg) by mouth if needed each day (take for weight gain of 2-3lbs in a day or 5lbs in a week, leg swelling, increased shortness of breath). (Patient taking differently: Take 20 mg by mouth in the morning.) 30 tablet 11 insulin glargine (Lantus) 100 unit/mL (3 mL) pen INJECT 28 UNITS TWICE DAILY, MAY BE ADJUSTED UP TO 30 UNITS insulin lispro (HumaLOG) 100 unit/mL injection PLEASE SEE ATTACHED FOR DETAILED DIRECTIONS isosorbide mononitrate ER (Imdur) 30 mg 24 hr tablet Take 1 tablet (30 mg) by mouth in the morning. Do not crush or chew. 90 tablet 3 losartan (Cozaar) 25 mg tablet Take 1 tablet (25 mg) by mouth in the morning. 90 tablet 3 metoprolol tartrate (Lopressor) 100 mg tablet Take 1 tablet (100 mg) by mouth in the morning and at bedtime. 180 tablet 3 dapagliflozin propanediol (Farxiga) 5 mg Take 1 (more content not included)... [facility] 06-23-2023 Note Patient here for 3 w [place] follow up med change. Metoprolol was increased to 100mg bid. Review of Systems Constitutional: Positive for malaise/fatigue. Cardiovascular: Positive for chest pain and leg swelling (minimal). Respiratory: Negative. All other systems reviewed and are negative. [facility] 06-23-2023 Note Cardiovascular Medic [facility] SUBJECTIVE Chief Complaint Patient presents with Atrial Fibrillation Coronary Artery Disease Congestive Heart Failure Hypertension Zaira Segura III is a 88 y.o. male here for follow-up. HPI 06/23/2023 We had increased his metoprolol after his last visit due to frequent PACs. He denies any changes. He has intermittent chest pain after eating. Also gets chest soreness when he lies in bed on his left side. When lying supine he does not feel this. He has some leg swelling, he feels this is unchanged. Denies SOB, palpitations, lightheadedness/syncope, and bleeding on Eliquis. He notes he has been having issues with hypoglycemia. He will be stopping Farxiga once his Rx is empty. Discussed indication for Farxiga and that he should follow-up with his PCP but he He is disgruntled today. His drivers license was recently taken away. 06/02/23 He has some midsternal chest pain [...] past, He was just recently admitted to [facility] and had PCI of LAD and LCx [...] atrial flutter while he was inpatient at [facility] for a foot wound. He was started on Eliquis and beta-blockers at that time. Since then he has been battling the issue of his right foot infection. He is very unhappy about his foot situation saying that this is limited his activity. He used to previously bike a lot specially many was in [place]. He denied any active chest pain but [...] pressures 4. No significant valvular dysfunction -------- Patient Active Problem List Diagnosis PAD (peripheral artery disease) ([facility]) Skin ulcer, limited to breakdown of skin ([facility]) Diabetes mellitus ([facility]) Primary hypertension Ischemic ulcer with fat layer exposed ([facility]) Atrial flutter ([facility]) PRASAD (dyspnea on exertion) Chest pain on exertion Coronary artery disease of [place] artery of [place] heart with stable angina pectoris ([facility]) Frequent falls Vascular insufficiency Paroxysmal atrial fibrillation ([facility]) 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 OBJECTIVE Visit Vitals BP 108/62 (BP Location: Right arm, Patient Position: Sitting) Pulse 54 Ht 1.854 m (6' 1 ) Wt 108 kg (239 lb) SpO2 94% BMI 31.53 kg/m??? Smoking Status Never BSA 2.36 m??? Medications: Current Outpatient Medications: apixaban (Eliquis) 5 mg tablet, Take 1 tablet (5 mg) by mouth in the morning and at bedtime., Disp: 60 tablet, Rfl: 11 atorvastatin (Lipitor) 20 mg tablet, Take 1 tablet (20 mg) (more content not included)... [facility] 06-02-2023 Note Patient here for 4 m [...] All other systems reviewed and are negative. [facility] 06-02-2023 Note Cardiovascular Medic [facility] SUBJECTIVE Chief Complaint Patient presents with [...] past, He was just recently admitted to [facility] and had PCI of LAD and LCx [...] atrial flutter while he was inpatient at [facility] for a foot wound. He was started on Eliquis and beta-blockers at that time. Since then he has been battling the issue of his right foot infection. He is very unhappy about his foot situation saying that this is limited his activity. He used to previously bike a lot specially many was in [place]. He denied any active chest pain but [...] pressures 4. No significant valvular dysfunction -------- Patient Active Problem List Diagnosis PAD (peripheral artery disease) ([facility]/H[facility]) Skin ulcer, limited to breakdown of skin ([facility]/HCC) Diabetes mellitus ([facility]) Primary hypertension Ischemic ulcer with fat layer exposed ([facility]) Atrial flutter ([facility]/HCC) PRASAD (dyspnea on exertion) Chest pain on exertion Coronary artery disease of [place] artery of [place] heart with stable angina pectoris ([facility]/HCC) Frequent falls Vascular insufficiency Paroxysmal atrial fibrillation ([facility]/HCC) 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 [facility] 01-11-2023 Note [facility] Electrophysiology Consult Note Reason for visit: Atrial [...] past, He was just recently admitted to [facility] and had PCI of LAD and LCx [...] atrial flutter while he was inpatient at [facility] for a foot wound. He was started on Eliquis and beta-blockers at that time. Since then he has been battling the issue of his right foot infection. He is very unhappy about his foot situation saying that this is limited his activity. He used to previously bike a lot specially many was in [place]. He denied any active chest pain but [...] mg) by m (more content not included)... [facility] 10-26-2022 Note [facility] Consul t Note Reason for visit: [...] past, He was just recently admitted to [facility] and had PCI of LAD and LCx with [facility]. Here is here for hospital follow up Has been doing well with no complaints of CP, SOB, PRSAAD Previous HPI per Dr. Singletary: Chief Complaint: Atrial flutter History of Present Illness: Mr. Segura is a 86-year-old gentleman with a past medical history of diabetes mellitus type 2, peripheral arterial disease, hypertension, who was diagnosed with atrial flutter while he was inpatient at [facility] for a foot wound. He was started on Eliquis and beta-blockers at that time. Since then he has been battling the issue of his right foot infection. He is very unhappy about his foot situation saying that this is limited his activity. He used to previously bike a lot specially many was in [place]. He denied any active chest pain but [...] Physical Exam: Constitu (more content not included)... [facility] 10-26-2022 Note Patient here for [facility]. He underwent PCI of prox LAD and mid LCX on 10/18/[address] Coon. He will finished aspirin therapy soon and be maintained on Plavix and Eliquis. Denies SOB, lightheadedness, and palpitations. Did have some chest discomfort last night. Review of Systems Constitutional: Positive for malaise/fatigue. Cardiovascular: Positive for chest pain (discomfort). Respiratory: Negative. Gastrointestinal: Positive for heartburn, nausea and vomiting. All other systems reviewed and are negative. [facility] 10-19-2022 Note sent updates and AVS to [facility]. No further OTM needs at this time. [facility] 10-19-2022 Note Hospital Medicine Discharge Summary Final Discharge Diagnosis: NSTEMI (non-ST elevated myocardial infarction) (CMS/HCC) Admission Diagnosis: NSTEMI (non-ST elevated myocardial infarction) (CMS/HCC) [I21.4] Hospital course: 87 y.o. male who came from [facility] with chest pain. The patient was transferred to [facility] for higher level of care. The patient presented to [facility] for an elective cardiac catheterization in mid [...] 10/26/2022 2:00 PM Tara Cardenas NP [facility] Your medication list START taking these [...] Medications These medications were sent to [facility] - [address] [place] [address] [address] [facility] [place] [address], [facility] [address] aspirin 81 mg EC tablet atorvastatin 20 mg tablet clopidogrel 75 mg tablet dapagliflozin propanediol 10 mg spironolactone 25 mg tablet Zaira is allergic to multivitamin and niacin. Disposition: Home-Health Care [facility] Discharge Condition: Stable Code Status: Full Code [...] last 7 day (more content not included)... [facility] 10-19-2022 Note 10/19/22 0955 Home Oxygen Therapy Evaluation Pulse Oximetry on room air at Rest 96 Pulse Ox on room air while walking 94 Patient Qualification for home oxygen Does not qualify for home oxygen this visit Patient on 10 min walk on room air. [facility] 10-19-2022 Note Subjective F/U NSTEM I, [...] -- -- 70 20 98 % -- 10/18/221999 141/74 36.8 ???C (98.3 ???F) Temporal 66 [...] with chest pain. The pt presented to [facility] yesterday with sudden onset chest pain and transferred to [facility]. Chest pain started spontaneously without inciting event [...] the clinic. Cath was done by Dr Coon, with potential consideration for PCI of mid and proximal LAD with atherectomy and IVUS via femoral access. TTE in 07/30 showed EF 40% with G1DD and regional wall motion abnormalities. Pr (more content not included)... [facility] 10-18-2022 Note Hospital Medicine Daily Progress Note - 10/18/2022 11:47 AM; Room: [address] [place] [address] Admission: 10/13/2022 10:28 PM; Length of stay: 5 days THE HOSPITALIST TEAM PREFERS TO USE [employer] FOR COMMUNICATION 7AM-7PM. IF I DO NOT RESPOND WITHIN 15 MINUTES, PLEASE PAGE ME/CALL THROUGH THE MOTOR GRADER ROUGH GRADE. FROM 7PM-7AM, PLEASE PAGE [phone](COVR) Code Status: Full Code Discharge Destination: home [...] Principal Problem: NSTEMI (non-ST elevated myocardial infarction) ([facility]) Assessment and Plan # NSTEMI: # MVD: [...] LDL 30 10/14/2022 No results found for: [id number], IRON, TIBC, C3, C4, ASTRID, CANCA, ASO, [...] Agent, Strain, 3D, Bubble Study 1 [facility] [address] [place] [address] [phone] (fax) E[facility]ocardiogram-[facility] Name: ZAIRA SEGURA III Study Date: 10/14/2022 12:55 PM B/P: 133 mmHg/81 mmHg HR: 77 bpm Date of : 1935 Location: [facility] Height: 73 in. Age: 87 year(s) Patient Room: 3109 Weight: 227 lb. Gender: Male Patient (more content not included)... [facility] 10-18-2022 Note Subjective F/U NSTEM I, [...] with chest pain. The pt presented to [facility] yesterday with sudden onset chest pain and transferred to [facility]. Chest pain started spontaneously without inciting event [...] the clinic. Cath was done by Dr Coon, with potential consideration for PCI of mid and proximal LAD with atherecto (more content not included)... [facility] 10-18-2022 Note Physical Therapy Physical Therapy Treatment Patient Name: Zaira Segura III : 1935 Today's Date: 10/18/2022 10/18/22 Time Calculation Start Time 0834 Stop Time 0905 Time Calculation (min) 31 min PT Therapeutic Procedures Time Entry Therapeutic Activity Time Entry 21 Therapeutic Exercise Time Entry 10 Patient Active Problem List Diagnosis PAD (peripheral artery disease) ([facility]) Skin ulcer, limited to breakdown of skin ([facility]/HCC) Diabetes mellitus ([facility]) Primary hypertension Ischemic ulcer with fat layer exposed ([facility]/HCC) Atrial flutter ([facility]) PRASAD (dyspnea on exertion) Chest pain on exertion Cardiomyopathy ([facility]) Coronary artery disease of [place] artery of [place] heart with stable angina pectoris ([facility]) Frequent falls Vascular insufficiency Paroxysmal A-fib ([facility]) 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 General Family/Caregiver Present No Subjective Pt resting sup in bed awake and alert. Pt pleasant and agreeable with PT tx. CHENCHO Fuentes approves and reports he will be going [...] 1 Pt perfo (more content not included)... [facility] 10-18-2022 Note 10/18/22 0801 Referral Data Referral Source Other (Comment) Activities of Daily Living Assistive Device Walker;Wheelchair Discharge Planning Type of Residence/Post Acute Needs Private residence Patient's goal for discharge Patient's goal for discharge is to return home with [facility]. Screened via C. Patient is from home. Has a walker and wheelchair in the home. History of [place] [facility] [place] [facility]. [facility] 10-17-2022 Note Hospital Medicine Daily Progress Note - 10/17/2022 10:35 AM; Room: [address] [place] [address] Admission: 10/13/2022 10:28 PM; Length of stay: 4 days THE HOSPITALIST TEAM PREFERS TO USE [employer] FOR COMMUNICATION 7AM-7PM. IF I DO NOT RESPOND WITHIN 15 MINUTES, PLEASE PAGE ME/CALL THROUGH THE [employer]OR GRADER ROUGH GRADE. FROM 7PM-7AM, PLEASE PAGE [phone](COVR) Code Status: Full Code Discharge Destination: home [...] Principal Problem: NSTEMI (non-ST elevated myocardial infarction) ([facility]) Assessment and Plan # NSTEMI: # MVD: [...] heparin, 0-28 Units/kg/hr, Last Rate: 11 Units/kg/hr (10/16/222234) Oxygen Therapy, sodium chloride, 50 mL/hr, Last Rate: 50 mL/hr (10/17/22456) Pertinent Investigations Hematology: Results from last 7 [...] LDL 30 10/14/2022 No results found for: [id number], IRON, TIBC, C3, C4, ASTRID, CANCA, ASO, [...] Agent, Strain, 3D, Bubble Study 1 1 [facility] [address] [facility] [place] [address] [phone] (fax) [facility]ogram[facility] Name: ZAIRA SEGURA III Study Date: 10/14/2022 12:55 PM B/P: 133 mmHg/81 mmHg (more content not included)... [facility] 10-17-2022 Note SW sent updates to [facility] [place]. Awaiting acceptance. OTM will continue to follow. [facility] 10-17-2022 Note Subjective F/U NSTEM I, [...] with chest pain. The pt presented to [facility] yesterday with sudden onset chest pain and transferred to [facility]. Chest pain started spontaneously without inciting event [...] the clinic. Cath was done by Dr Coon, with potential consideration for PCI of mid and proximal LAD with atherectomy and IVUS via femoral access. TTE in 07/30 showed EF 40% with G1DD and regional wall motion abnormalities. Principal Problem: NSTEMI (non-ST elevated myocardial infarction) (CMS/HCC) - CAD s/p cath 07/30- severe triple vessel d (more content not included)... [facility] 10-16-2022 Note Hospital Medicine Daily Progress Note - 10/16/2022 10:58 AM; Room: [facility] Admission: 10/13/2022 10:28 PM; Length of stay: 3 days THE HOSPITALIST TEAM PREFERS TO USE [employer] FOR COMMUNICATION 7AM-7PM. IF I DO NOT RESPOND WITHIN 15 MINUTES, PLEASE PAGE ME/CALL THROUGH THE MOTOR GRAD[employer]OUGH GRADE. FROM 7PM-7AM, PLEASE PAGE [phone](COVR) Code Status: Full Code Discharge Destination: home [...] Principal Problem: NSTEMI (non-ST elevated myocardial infarction) ([facility]) Assessment and Plan # NSTEMI: # MVD: [...] CO2 mmol/L 30 26 29 BUN mg/dL * 23 27* CREATININE mg/dL 1.42* 1.40* 1.27 [...] LDL 30 10/14/2022 No results found for: [id number], IRON, TIBC, C3, C4, ASTRID, CANCA, ASO, [...] Agent, Strain, 3D, Bubble Study 1 1 [facility] [address] [place] [address] [phone] (fax) [facility] Name: ZAIRA SEGURA III Study Date: 10/14/2022 12:55 PM B/P: 133 mmHg/81 mmHg HR: 77 bpm Date of : 1935 Location: [facility] Height: 73 in. Age: 87 year(s) Patient Room: 3109 Weight: 227 lb. Gender: M (more content not included)... [facility] 10-16-2022 Note Subjective F/U NSTEM I, [...] -- -- 67 10 99 % -- 10/15/222007 148/60 36.7 ???C (98.1 ???F) Temporal 60 [...] Principal Problem: NSTEMI (non-ST elevated myocardial infarction) ([facility]) - CAD s/p cath 07/30- severe triple vessel disease - Ischemic cardiomyopathy, EF 40% on TTE 10/14, anterior wall akinesis, apical hypokinesis - A fib/flutter, on AC- [id number] - DM, type 2, last A1c 8.7% [...] lipitor, toprol, losartan, and aldactone and farxiga [facility] II Diuretic therapy- currently euvolemic and appeared dehydrated yesterday, renal function remains elevated but stable. Monitor daily weights, I&O, fluid restriction 1.5-2L/day, renal function and electrolytes- please maintain K+>4 and Mg > 2 - cath w/ PCI scheduled for Tuesday or Tuesday- will dw Dr You and Dr Deleon- interventionalist Tanya Prince DATE NIGHT CAREGIVER Division of Cardiology, [facility]- [phone] Pager- [phone] Email- [email or web address] Addendum- start IV fluid for hydration, continue heparin infusion and plan for PCI on Tuesday per Dr Deleon- dependent on improvement of renal function. [facility] 10-15-2022 Note Sw advised by [facility] Ca re Coordinator that patient was recently with [facility]. Preliminary referral made for their review as PT/OT recommend Home therapy. [facility] 10-15-2022 Note Hospital Medicine Daily Progress Note - 10/15/2022 12:57 PM; Room: [facility]- Admission: 10/13/2022 10:28 PM; Length of stay: 2 days THE HOSPITALIST TEAM PREFERS TO USE [employer] CH[employer] FOR COMMUNICATION 7AM-7PM. IF I DO NOT RESPOND WITHIN 15 MINUTES, PLEASE PAGE ME/CALL THROUGH THE MOTOR GRADER ROUGH GR[employer]. FROM 7PM-7AM, PLEASE PAGE [phone](COVR) Code Status: Full Code Discharge Destination: home [...] Principal Problem: NSTEMI (non-ST elevated myocardial infarction) (CMS/[facility]) Assessment and Plan # NSTEMI: # MVD: [...] LDL 30 10/14/2022 No results found for: [id number], IRON, TIBC, C3, C4, ASTRID, CANCA, ASO, [...] Agent, Strain, 3D, Bubble Study 1 1 [facility] [address] [place] [address] [phone] (fax) [facility]ocardiogram[facility] Name: ZAIRA SEGURA III Study Date: 10/14/2022 12:55 PM B/P: 133 mmHg/81 mmHg HR: 77 bpm Date of : 1935 Location: [facility] Height: 73 in. Age: 87 year(s) Patient [...] ventricular systolic f (more content not included)... [facility] 10-15-2022 Note Physical Therapy Kym mitchell [...] 87 y.o. male admits on transfer from [facility] after presenting w/ substernal chest pain. The patient presented to [facility] for an elective cardiac catheterization in mid [...] Feedback during session, Functional mobility, and Safety. Travel Nurse recommended pt not access basement until home PT is able to work on this skill with him. Discussed future safety concepts of carrying laundry in a bag over the forearm or shoulder to allow hands to be free for balance when climbing stairs. Pt's sister is present and indicates pt may need further education and reminders to follow process description writer's suggestions. Treatment performed consisted of ambulation [...] wheelchair): None Hel (more content not included)... [facility] 10-15-2022 Note Attestation signed by Tato White MD at 10/15/2022 6:05 PM I personally saw and examined the patient on the same date of service as resident/fellow Vinh Thompson. I discussed the findings and therapeutic plan with the resident/fellow Vinh Thompson. I agree with the documentation, except for any edits/updates below. Teaching Physician's Revisions: As noted above Subjective Seen this am. No chest pain [...] Principal Problem: NSTEMI (non-ST elevated myocardial infarction) (CMS/[facility]) - CAD s/p cath 07/30- severe triple [...] 10/19 Vinh Thompson MD Internal Medicine Resident, [facility] 10/15/22 9:48 AM [facility] 10-15-2022 Note Occupational Therapy Occupational Therapy Evaluation Patient Name: Zaira Segura III : 1935 Today's Date: 10/15/2022 Time In: 746 Time Out: 805 Zaira Segura III is an 87 y.o. male who came from [facility] with chest pain. The patient was transferred to [facility] for higher level of care. 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) Neurological disorder Mixed hyperlipidemia Chronic venous hypertension NSTEMI (non-ST elevated myocardial infarction) ([facility]) Past Medical History: Diagnosis Date Arrhythmia Atrial flutter ([facility]) Diabetes ([facility]) Hypertension Past Surgical History: Procedure Laterality Date [...] Level of Function Prior Function Level of [place]: Independent with ADLs and functional transfers, Independent [...] Eating meals?: None (Independent) Total Score OT [facility]: 21 Assessment/Plan OT Assessment OT Impairments: Decreased ADL status, Decreased endurance, Decreased functional mobility OT Assessment/LOSS PREVENTION LEAD Summary: (needs skilled OT due to weakness and fatigue) Prognosis: Good Evaluation/Treatment Tolerance: Patient limited by fatigue Medical Staff Made Aware: Yes OT Education/Comment (more content not included)... [facility] 10-14-2022 Note 10/14/22 1411 Admission Assessment [...] Discharge? Yes Does the patient have a case finisher assigned to them through their insurance? No Living Arrangement (Current/Prior to Hospitalization) Private residence Does the patient have history of [facility] or SNF? Yes (Recently at [facility] and discharged home with [facility]) Assistive Device Walker;Wheelchair Patient's goal for [...] to send link and activate MyChart? No [facility] 10-14-2022 Note Hospital Medicine Daily Progress Note - 10/14/2022 11:02 AM; Room: 3109/3109-01 Admission: 10/13/2022 10:28 PM; Length of stay: 1 days THE HOSPITALIST TEAM PREFERS TO USE [employer] CHAT FOR COMMUNICATION 7AM-7PM. IF I DO NOT RESPOND WITHIN 15 MINUTES, PLEASE PAGE ME/CALL THROUGH THE MOTOR GRADER ROUGH GRADE. FROM 7PM-7AM, PLEASE PAGE [phone](COVR) Code Status: Full Code Discharge Destination: home [...] Principal Problem: NSTEMI (non-ST elevated myocardial infarction) ([facility]) Assessment and Plan # NSTEMI: # MVD: [...] LDL 30 10/14/2022 No results found for: [id number], IRON, TIBC, C3, C4, ASTRID, CANCA, ASO, PSA, CEA, CA125, CA199, AFP, CA153 Imaging Cardiac catheterization Addendum: PROCEDURE PHYSICIAN: Juan Coon MD Clinical Presentation: 87 y.o. Male with [...] therapy. 7) close outpatient follow up with [facility]. Re-address revascularization decision in the outpatient setting. If he agrees to pursue PCI, then I will perform PCI LAD with atherectomy and IVUS via femoral access. If PCI is chosen, then the LAD disease is the worst and I will focus on the proximal and mi (more content not included)... [facility] 10-14-2022 Note Clinical Nutrition A ssessment [...] based on: ideal body weight Calorie needs: 3252-3747 kcals/day based on Equation: 25-30 kcal/kg Protein [...] cup, and a cranberry juice. Thanks 10/14/22 2273 Nutrition Risk: Low Nutrition Diagnosis: inadequate oral food/beverage intake related to chest pain/nausea as evidenced by decreased intakes, not wanting to eat much Nutrition Recommendations: Continue current diet Plan for heart cath tomorrow. Per RN, no longer considering a CABG Reviewed HF diet education Monitor intakes and tolerance of diet. Goals: Nutrition Goals: intake > 75% meals Angelo Sanchez RD [facility] 10-13-2022 Note Hospital Medicine History and Physical 10/13/2022 11:11 PM THE HOSPITALIST TEAM PREFERS TO USE [employer] FOR COMMUNICATION 7AM-7PM. IF I DO NOT RESPOND WITHIN 15 MINUTES, PLEASE PAGE ME/CALL THROUGH THE MOTOR GRADER ROUGH GRADE. FROM 7PM-7AM, PLEASE PAGE [phone](COVR) Chief Complaint No chief complaint on file. History of Present Illness Zaira Segura III is an 87 y.o. male who came from [facility] with chest pain. The patient was transferred to [facility] for higher level of care. 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 ([facility]) 07/27/2022 Neurological disorder 07/27/2022 Chronic venous hypertension 07/27/2022 Coronary artery disease of [place] artery of [place] heart with stable angina pectoris ([facility]) 07/21/2022 Frequent falls 07/21/2022 Mixed hyperlipidemia 04/24/2022 PRASAD (dyspnea on exertion) 02/09/2022 Chest pain on exertion 02/09/2022 Skin ulcer, limited to breakdown of skin ([facility]) 05/21/2021 Ischemic ulcer with fat layer exposed ([facility]) 05/21/2021 Diabetes mellitus ([facility]) 12/22/2020 Primary hypertension 12/22/2020 Atrial flutter ([facility]) 12/22/2020 PAD (peripheral artery disease) ([facility]) 11/06/2020 Cardiomyopathy ([facility]) 07/15/2022 Assessment and Plan 1. NSTEMI 2. [...] additional labs, imagi (more content not included)... [facility] 04-26-2022 Evaluation + Plan note Extrac monty from: Title:Discharge Note Author:KEN PABLO, Camilo Sweet te:04/26/22 Discharge To, Anticipated II - [facility] Discharged to - Home independently Transported [...] Bedtime BD MAIDA 2 GEN PEN NDL [id number] BD UF MAIDA PEN NEEDLE [id number] CVS ZINC 50 MG TABLET Eliquis 5 mg oral tablet, Still taking, not as prescribed: tAKES 2 TABLETS TWICE DAILY Handicap Jluisard, See Instructions HumaLOG KwikPen 100 units/mL injectable solution ketorolac Opth 0.5% Catherine Lantus Solostar Pen 100 units/mL subcutaneous solution Lopressor 25 mg oral tablet magnesium oxide 400 mg Tab ofloxacin Opth 0.3% Catherine Potassium Chloride (Evj-Poqx-Whx 10) 10 mEq oral tablet, extended release With When Contact Information Follow-up with your eye surgery Dr. Within 7 to 10 days Additional Instructions: Call for followup appointment Call physician if symptoms worsen DOMINGO MEDRANO Within 7 to [address] [place] [address] [facility] (1) Additional Instructions: Call for followup appointment [...] Constantin e:04/25/22 Discharge To, Anticipated II - [facility] Discharged to - Home independently Transported [...] Bedtime BD MAIDA 2 GEN PEN NDL [id number] BD UF MAIDA PEN NEEDLE [id number] CVS ZINC 50 MG TABLET Eliquis 5 mg oral tablet, Still taking, not as prescribed: tAKES 2 TABLETS TWICE DAILY Handicap Jluisard, See Instructions HumaLOG KwikPen 100 units/mL injectable solution ketorolac Opth 0.5% Catherine Lantus Solostar Pen 100 units/mL subcutaneous solution Lopressor 25 mg oral tablet magnesium oxide 400 mg Tab ofloxacin Opth 0.3% Catherine Potassium Chloride (Iht-Tejv-Hcj 10) 10 mEq oral tablet, extended release With When Contact Information Follow-up with your eye surgery DrZara Within 7 to 10 days Additional Instructions: Call for followup appointment Call physician if symptoms worsen DOMINGO MEDRANO Within 7 to [address] [place] [address] [employer] (1) Additional Instructions: Call for followup appointment [...] Bedtime BD MAIDA 2 GEN PEN NDL [id number] BD UF MAIDA PEN NEEDLE [id number] CVS ZINC 50 MG TABLET Eliquis 5 mg oral tablet, Still taking, not as prescribed: tAKES 2 TABLETS TWICE DAILY Handicap Placard, See Instructions HumaLOG KwikPen 100 units/mL injectable solution ketorolac Opth 0.5% Catherine Lantus Solostar Pen 100 units/mL subcutaneous solution Lopressor 25 mg oral tablet magnesium oxide 400 mg Tab ofloxacin Opth 0.3% Catherine Potassium Chloride (Zed-Hhnk-Oit 10) 10 mEq oral tablet, extended release With When Contact Information Follow-up with your eye surgery Dr. Within 7 to 10 days Additional Instructions: Call for followup appointment Call physician if symptoms worsen DOMINGO MEDRANO Within 7 to 10 days [facility] [place] [address] [employer] (1) Additional Instructions: Call for followup appointment [...] rhythm. Patient may follow-up with his primary weed control inspector as an outpatient. Thank you very much [...] had extensive cellulitis and was hospitalized in [place]. He states after that hospitalization he had [...] states he was under the impression his weed control inspector wanted him on 10 mg twice daily [...] be anticipated to require 1 midnight stay [facility]03-18-2023 Hospital Discharge instructions Patient Education 04/24/2022 10:20:51 [...] Use night-lights. Place frequently used items in ipag-xm-ixfth places. Lower the shelves around your home [...] of the way. Do not use floor pitcairn islander or wax that makes floors slippery. If [...] include working with a physical therapist or certified personal trainer to improve your strength, balance, and endurance. Where to find more information Centers for Disease Control and PreventionSHEREEN: https://www.cdc.gov National [place] on Aging: https://uu1jgbi.gumaro.nih.gov Contact a health care provider if: You [...] 01/14/2003 Document Revised: 01/06/2018 Document Reviewed: 09/08/2017 [employer] Patient Education 2020 [employer] Follow Up Care 04/23/2022 18:13:42 With:Follow-up with your eye surgery Dr. Address:Unknown When:7 to 10 days Comments:Call for followup appointmentCall physician if symptoms worsen With:DOMINGO MEDRANO Address: [address] [place] [id number] [facility] (1) When:7 to 10 days Comments:Call for followup appointmentCall physician if symptoms worsen [facility]03-02-2023 NoteOPERATIVE NOTE OPERATION DATE: 04/08/2022 SURGEON: Cricket [...] ensuring mobility, phacoemulsification was performed in a ruzgeoy-rou-cshhzj-type fashion. After all nuclear material had been [...] up the following day for postoperative care.[id number] NotePREOPERATIVE HISTORY AND PHYSICAL Date:04/07/2022 HISTORY: Patient [...] and go forward with his elective procedure.[facility] [id number] NoteOPERATIVE NOTE OPERATION DATE: 03/11/2022 SURGEON: Cricket [...] ensuring mobility, phacoemulsification was performed in a gessaac-tbx-kyuuwl-type fashion. After all nuclear material had been [...] up the following day for postoperative care.[facility] [id number] NoteHISTORY AND PHYSICAL EXAMINATION Date:03/10/2022 HISTORY: The [...] and go forward with his elective procedure.[facility] Future Appointments Appointment Date:06/25/2022 10:00:00 AM Scheduled Provider: Location:[facility] Appointment Type: Nurse Visit Future Scheduled Tests Laboratory* HgbA1c 06/08/22 * Microalbumin Level Urine 06/08/22 * CBC w/ Auto Diff 06/08/22 * Comprehensive Metabolic Panel 06/08/22 * Lipid Panel 06/08/22 [facility] Future Appointments Appointment Date:06/02/2023 09:15:00 AM Scheduled Provider:Gilson Salgado MD Location:[facility] Appointment Type: Open Appointment Date:11/22/2023 01:00:00 PM Scheduled Provider: Location:[facility] Appointment Type:FM Medicare Wellness Subsequent Diagnostic Tests Pending * HgbA1c 04/20/23 * Microalbumin Level Urine 04/20/23 * U Protein/Creat Ratio 04/20/23 [facility] Future Appointments Appointment Date:11/01/2023 02:00:00 PM Scheduled Provider:Gilson Salgado MD Location:[facility] Appointment Type: Open Appointment Date:11/22/2023 01:00:00 PM Scheduled Provider: Location:[facility] Appointment Type:FM Medicare Wellness Subsequent [facility] Future Appointments Appointment Date:08/07/2024 02:00:00 PM Scheduled Provider:Gilson Salgado MD Location:[facility] Appointment Type: Open Appointment Date:12/20/2024 02:30:00 PM Scheduled Provider: Location:[facility] Appointment Type:FM Medicare Wellness Subsequent [facility] Evaluation note* Diagnosis Diabetic polyneuropathy associated with type 2 diabetes mellitus (CMS/HCC)- Primary Onychomycosis Dermatophytosis of nail [facility] Diagnosis Diabetic polyneuropathy associated with type 2 diabetes mellitus (HCC)- Primary Onychomycosis Dermatophytosis of nail Corns and callosities [facility] Narrative No data available for this section [facility] No data available for this section [facility] No data available for this section [facility] Summary Purpose Family History No Family History Records FoundNo Family History Records Found No data available for this section No data available for this section No [...] section and content) DATE CREATED AUTHOR 10/24/2020 [facility] DATE CREATED AUTHOR AUTHOR'S ORGANIZ ATION 07/18/2022 [facility] DATE CREATED AUTHOR AUTHOR'S ORGANIZ ATION 08/04/2023 [facility] DATE CREATED AUTHOR AUTHOR'S ORGANIZ ATION 09/22/2023 [facility] DATE CREATED AUTHOR AUTHOR'S ORGANIZ ATION 12/20/2023 [facility] DATE CREATED AUTHOR AUTHOR'S ORGANIZ ATION 06/05/2024 [facility] DATE CREATED AUTHOR AUTHOR'S ORGANIZ ATION 08/09/2024 [facility] DATE CREATED AUTHOR AUTHOR'S ORGANDUANE ATION 08/20/2024 [facility] EPIC Patient Care team informatio n (unrecognized section and content) Athletic Gear Custodian Relationship Specialty Start Date End Date Gilson Salgado MD [address] [place] [phone] PCP - General Family Medicine 12/09/23 [employer] Custodian Relationship Specialty Start Date End Date Gilson Salgado MD [address] [place] [phone] PCP - General Family Medicine 12/09/23 Athletic Gear Custodian Relationship Specialty Start Date End Date Gilson Salgado MD [address] [place] [phone] PCP - General Family Medicine 12/09/23 Athletic Gear Custodian Relationship Specialty Start Date End Date Gilson Salgado MD [address] [place] [phone] PCP - General Family Medicine 12/09/23 Reason for Visit (unrecogniz ed section and content) Reason Comments Toenail Care Reason Comments Follow-up [facility] FOR RECORDS PERTAINING TO PATIENTS WHO ARE [...] BE BASED ON THE PRIMARY CLINICAL RECORDS. [employer] provides no warranty or guarantee of the accuracy or completeness of information in this document.
[2024-08-24 11:13] LABS: Hematocrit 40.9 % (42.0-54.0); Hemoglobin 13.8 g/dL (14.0-18.0); Immature Granulocytes Abs Auto 0.02 10^3/uL (0.00-0.03); Immature Granulocytes Pct Auto 0.3 % (0.0-0.5); Lymphocytes Absolute Auto 1.3 10^3/uL (1.2-3.8); Mean Corpuscular HGB Conc 33.7 g/dL (29.9-35.2); Mean Corpuscular Hemoglobin 30.9 pg (25.9-34.0); Mean Corpuscular Volume 91.5 fL (80.0-94.0); Platelet Count 146 10^3/uL (150-450); Red Blood Count 4.47 10^6/uL (4.70-6.10); White Blood Count 5.7 10^3/uL (4.0-11.0)
[2024-08-24 11:24] LABS: Alanine Aminotransferase 24 U/L (16-63); Albumin Globulin Ratio 1.0; Albumin Level 3.5 g/dL (3.4-5.0); Alkaline Phosphatase 49 U/L (46-116); Anion Gap 11.9; Aspartate Amino Transferase 21 U/L (15-37); Blood Urea Nitrogen 33.0 mg/dL (7.0-18.0); Calcium 9.0 mg/dL (8.5-10.1); Carbon Dioxide 29.1 mmol/L (21.0-32.0); Chloride 105 mmol/L (98-107); Cholesterol 79 mg/dL (<=200); Estimated GFR (African America >60 (>=60 mL/min/1.73m^2); Estimated GFR (Non-African Ame 50 (>=60 mL/min/1.73m^2); Globulin 3.6 g/dL; Glucose 145 mg/dL (74-106); HDL Cholesterol 32 mg/dL (40-60); Potassium 4.0 mmol/L (3.5-5.1); Sodium 142 mmol/L (136-145); Total Protein 7.1 g/dL (6.4-8.2); Triglycerides 71 mg/dL (<=150); VLDL CHOLESTEROL 14.2 mg/dL
== END 2024-08-24 10:26 | disposition home or self-care (01) ==
LOC: LAB 10:29
PROVIDERS: PCP Nurse Practitioner Family
DX: E78.2 Mixed hyperlipidemia (principal); I50.22 Chronic systolic (congestive) heart failure
CPT/HCPCS: 36415; 80053; 80061; 83036; 85025

== ENCOUNTER 2024-09-05 15:11 | Outpatient (OUT) | payer MEDICARE, SELFPAY ==
--- NOTE | 2024-09-05 15:15 | CA_ITS ---
Patient Name: ZAIRA SINGLETON MR#: [id number] : 1935 Exam Date: 09/05/2024 Ordering Doctor: LUCA ELLIOTT ECHOCARDIOGRAM REPORT PROCEDURE: CA ECHO DOPPLER COMPLETE INDICATIONS: Chronic systolic heart failure COMPARISON: None. DESCRIPTION: COMPLETE ECHOCARDIOGRAM Real-time transthoracic echocardiography with 2D, M-mode, spectral and color flow Doppler performed. QUALITY: Technical quality was good. LEFT VENTRICLE: Normal chamber size. Moderate concentric left ventricular hypertrophy. Global left ventricular systolic function is mildly to moderately decreased. LV EF: Visual estimation of left ventricular ejection fraction is 40%. DIASTOLIC: ATRIAL SEPTUM: LEFT ATRIUM: Normal chamber size. RIGHT ATRIUM: Normal chamber size. RIGHT VENTRICLE: Normal chamber size. Normal right ventricular systolic function. TRICUSPID VALVE: Normal mobility and thickness. No stenosis with trivial regurgitation. Insufficient tricuspid regurgitation to calculate RSVP. MITRAL VALVE: Normal mobility and thickness. No evidence of mitral valve stenosis. There is no mitral annular calcification. Trivial mitral regurgitation. AORTIC VALVE: Normal trileaflet appearance. Thickened aortic valve. Normal leaflet mobility. No evidence of aortic valve stenosis. Mild aortic regurgitation. AORTIC ROOT: Normal diameter and appearance. Measuring 3.3 cm. The ascending aorta measures 3.2 cm. PULMONIC VALVE: Normal thickness and mobility. No stenosis. Trivial regurgitation. PERICARDIUM: No evidence of pericardial effusion. IVC: Collapses with inspiration. Normal size. PLEURA: CONCLUSION: 1. Moderate concentric hypertrophy with mildly to moderately reduced systolic function. LVEF is 40%. 2. Normal right ventricular size and systolic function. 3. Mild aortic regurgitation. 4. Unable to assess right-sided pressures due to lack of measurable tricuspid regurgitation. Adult Echocardiography Procedure Report Left Ventricle LVEDD (3.7 - 5.6 cm): 4.12 cm LVESD (2.2 - 4.0 cm): 3.10 cm LVIVS thickness (0.6 - 1.2 cm): 1.41 cm LVPW thickness (0.5 - 1.0 cm): 1.48 cm e': 0.06 m/s E - e': 13.70 LVOT Max Gradient: 2.48 mm[Hg] LVOT Area (cm2): 0.79 m/s Peak Velocity (LVOT): 0.79 m/s Mean Velocity (LVOT): 0.51 m/s LVOT Diameter 2.45 cm Left Ventricular Ejection Fraction: 40 % Left Atrium LA Volume Index (2D A2C): 32.09 ml/m2 Left Atrium Systolic Dimension: 2.83 cm Mitral Valve MV E to A Ratio: 0.86 Mitral Valve A-Wave Peak Velocity: 0.93 m/s Mitral Valve E-Wave Peak Velocity: 0.80 m/s Right Ventricle RV Internal Diastolic Dimension: 4.14 cm Aorta AO Root Diam: 3.31 cm Ascending Ao Diam: 3.20 cm Aortic Valve AoV Area ([place]): 2.77 cm2, 2.77 cm2 AoV Area (VTI): 2.65 cm2, 2.65 cm2 Peak Velocity(Antegrade Flow): 1.34 m/s Peak Gradient(Antegrade Flow): 7.17 mm[Hg] Mean Velocity(Antegrade Flow): 0.95 m/s Mean Gradient(Antegrade Flow): 4.17 mm[Hg] Velocity Time Integral: 30.87 cm Tricuspid Valve Pulmonic Valve Mean Gradient: 1.06 mm[Hg] Mean Velocity: 0.46 m/s Peak Velocity: 0.74 m/s, 0.88 m/s Peak Gradient: 2.21 mm[Hg], 3.10 mm[Hg] Right Atrium Right Atrium Systolic Pressure: 31.95 ml, 31.95 ml Dictated by: Oswaldo Deleon M.D. on 09/05/2024 at 18:36 Approved by: Oswaldo Deleon M.D. on 09/05/2024 at 18:49
== END 2024-09-05 15:12 | disposition home or self-care (01) ==
LOC: CARD 15:12
PROVIDERS: PCP Nurse Practitioner Family
DX: I50.22 Chronic systolic (congestive) heart failure (principal); R06.09 Other forms of dyspnea
CPT/HCPCS: 93306; 93356

== ENCOUNTER 2024-11-19 14:03 | Outpatient (OUT) | payer MEDICARE, SELFPAY ==
--- OUTSIDE RECORDS SUMMARY | 2024-11-19 14:08 | XMS_ITS | CCD ---
Author Organization [facility] Care Team Providers Care Bus Monitor Name Role Phone DOMINGO MEDRANO Primary Care Physician [phone] Gilson Salgado Primary Care Physician NATALEE, DR HAZEL Attending Unavailable MEDRANO ., DR DOMINGO Tran Primary Care Unavailable DR YASEMIN ALBRIGHT Admitting Unavailable TARA CARDENAS Attending Unavailable TARA CARDENAS Admitting Unavailable MEDRANO ., DR DOMINGO Tran Primary Care Unavailable CRICKET MADDOX Attending Unavailable CRICKET MADDOX Admitting Unavailable MEDRANO ., DR DOMINGO Tran Primary Care Unavailable CRICKET MADDOX Consulting Unavailable CRICKET MADDOX Attending Unavailable CRICKET MADDOX Admitting Unavailable MEDRANO ., DR DOMINGO Tran Primary Care Unavailable CRICKET MADDOX Consulting Unavailable RAPHAEL FERNANDES Admitting Unavailable RAPHAEL FERNANDES Attending Unavailable REQUEST, NONE LISTED Primary Care Unavaila ble DOM, RAPHAEL Blanton Admitting Unavailable HIGHLANDER, RAPHAEL Blanton Attending Unavailable REQUEST, NONE LISTED Primary Care Unavaila ble DOM, RAPHAEL Blanton Admitting Unavailable RAPHAEL FERNANDES Attending Unavailable REQUEST, NONE LISTED Primary Care Unavaila ble DOM, PETER Franny Admitting Unavailable HIGHLANDER, RAPHAEL Blanton Attending Unavailable REQUEST, NONE LISTED Primary Care Unavaila ble DOM, RAPHAEL Blanton Attending Unavailable REQUEST, NONE LISTED Primary Care Unavaila ble DOM, PETER D Admitting Unavailable HIGHLANDER, RAPHAEL Blanton Admitting Unavailable HIGHLANDER, RAPHAEL Blanton Attending Unavailable REQUEST, NONE LISTED Primary Care Unavaila ble TARA CARDENAS Attending Unavailable TARA CARDENAS Admitting Unavailable MEDRANO ., DR DOMINGO Tran Primary Care Unavailable CELIO SALDANA Consulting Unavailable CELIO SALDANA Attending Unavailable GILSON SALGADO Primary Care Unavailable CELIO SALDANA Admitting Unavailable TARA CARDENAS Consulting Unavailable TARA CARDENAS Attending Unavailable TARA CARDENAS Admitting Unavailable MITCHELL ., DR DOMINGO Tran Primary Care Unavailable REQUEST, DR MICHAEL LISTED Primary Care Unavaila ble MITCHELL ., DR DOMINGO Tran Consulting Unavailable MITCHELL ., DR DOMINGO Tran Attending Unavailable MITCHELL ., DR DOMINGO Tran Admitting Unavailable Gilson Salgado MD Primary Care Provider [phone] Gilson Salgado Attending Unavailable Gilson Salgado Admitting Unavailable Gilson Salgado Attending Unavailable GIRISH BECKER Attending Unavailable Gilson Salgado Attending Unavailable Gilson Salgado Attending Unavailable Gilson Salgado Attending Unavailable Gilson Salgado Attending Unavailable Gilson Salgado Attending Unavailable Gilson Salgado Admitting Unavailable Gilson Salgado Attending Unavailable PATRICK ADKINS Attending UnavailPATRICK Wetzel Attending UnavailPATRICK Wetzel Attending Unavailstephanie e GIRISH BECKER Attending Unavailable GIRISH BECKER Attending Unavailable MD Gilson Salgado Attending Unavailable MD Gilson Salgado Admitting Unavailable ANGELO ELLIOTT Attending Unavailable EUGENIO, JASON Norwood Attending UnavailGilson Neumann Attending Unavailable Gilson Salgado Attending Unavailable Gilson Salgado Attending Unavailable Gilson Salgado Admitting Unavailable Gilson Salgado Attending Unavailable Allergies Allergy Classification Reported Allergen(s) Allergy Type Date of Onset Reaction(s) Facility (5 sources) Ascorbic Acid / Cholecalciferol / Vitamin A; Translations: [multivitamin] Drug Allergy Unknown (qualifier value) [facility] (9 sources) Niacin; Translations: [niacin] Drug Allergy 1 Unknown (qualifier value) [facility] (2 sources) Niacin Drug Allergy 3 [facility] (4 sources) Niacin Drug Allergy 3 [facility] (1 source) Multivitamin preparation; Translations: [MULTIVITAMIN] Drug Allergy 3 [facility] Repository Medications Current Medications Medication Drug Class(es) Dates Sig (Normalized) Sig (Original) apixaban 5 mg oral tablet (9 sources) Factor Xa Inhibitor Start: 04-19-2022 take 1 tablet by mouth twice daily Eliquis 5 mg oral tablet 5 mg = 1 tab(s), Oral, BID, # 180 tab(s), Refills(s) 1, Pharmacy: [facility]/pharmacy #[id number], 182, cm, 06/04/24 12:51:00 EDT, Height/Length Dosing, [...] supply, # 3 EA, Refills(s) 1, Pharmacy: [facility]/pharmacy #[id number], 182, cm, 10/25/22 7:40:00 EDT, Height/Length Dosing, [...] day, # 15 mL, Refills(s) 0, Pharmacy: [facility]/pharmacy #[id number], 182, cm, 06/08/22 13:43:00 EDT, Height/Length [...] DAY, # 180 tab(s), Refills(s) 0, Pharmacy: [id number], 182, cm, 06/08/22 13:43:00 EDT, Height/Length Dosing, 107, kg, 06/08/22 13:43:00 EDT, Weight Dosing Start Date: 08/26/22 Status: Ordered Quantity: 180.0 Unit: tab(s) Repeat number: 1 Start: 08-26-2022 take 1 tablet by ryland th twice daily losartan 50 mg Tab See Instructions, TAKE 1 TABLET BY MOUTH TWICE A DAY, # 180 tab(s), Refills(s) 0, Pharmacy: [id number], 182, cm, 06/08/22 13:43:00 EDT, Height/Length Dosing, [...] tablet by mouth twice daily Potassium Chloride ([id number]-[id number]-Pyq 10) 10 mEq oral tablet, extended release [...] 04/24/22 Stop Date: 04/26/22 Status: Discontinued Pen Lawson (3 sources) Start: 08-11-2022 Pen Lawson Pe n Lawson, See Instructions, 300 EA, 1, To be used with giving insulin three times Dx: E11.9, [id number], Supply, 182, cm, 06/08/22 13:43:00 EDT, Height/Length Dosing, 107, kg, 06/08/22 13:43:00 EDT, Weight Dosing Start Date: 08/11/22 Status: Ordered Quantity: 300.0 Unit: EA Repeat number: 2 Start: 08-11-2022 Pen Lawson Pe n Lawson, See Instructions, 300 EA, 1, To be [...] disease (12 sources) 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; Translations: [Coronary [...] initial encounter] Onset: 04-24-2022 Episodic Essential hypertension (11 sources) Hypertensive disorder; Translations: [Essential (primary) hypertension] Onset: 03-12-2022 04-23-2022 Chronic Fluid and electrolyte disorders (5 sources) Hypokalemia 04-23-2022 Episodic Heart valve disorders (1 source) Nonrheumatic pulmonary valve insufficiency; Translations: [NONRHEUMATIC PULMONARY VALVE INSUFF] Onset: 02-26-2022 Chronic Hypertension with complications and secondary hypertension (4 sources) Hypertensive urgency ; Translations: [Hypertensive urgency] [...] sources) Onychomycosis; Translations: [Tinea unguium] 12-11-2023 Episodic Nonspecific chest pain (2 sources) Chest pain, unspecified; Translations: [Chest pain, unspecified] Onset: 07-21-2022 Episodic Open wounds of head; neck; and [...] head, initial encounter] Onset: 04-24-2022 Episodic Other lower respiratory disease (6 sources) Other forms of dyspnea; Translations: [OTHER FORMS OF DYSPNEA] Onset: 02-18-2022 Episodic Other nervous system disorders (2 sources) [...] [Peripheral vascular disease, unspecified] Onset: 11-06-2020 Chronic Unclassified (3 sources) Long-term current use of insulin 04-19-2023 Comment on above: Current Medication L ist includes Lantus and Humalog. added per OP CDI policy. Unclassified (1 source) Non-smoker 03-05-2024 Past or Other Problems Problem Classification Problem Date Documented Da te Episodic/Chronic Open wounds of extremities (6 sources) Open wound of lower limb; Translations: [Unspecified open wound, left lower leg, initial encounter] Onset: 07-18-2023 07-25-2023 Episodic Comment on above: resolved per 025 query response. 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 He told me his PCP, Girish Apple CNP was concerned about his renal function. Zaira told me Girish advised him to contact our office to give him a better water pill . I advised patient his creatinine was 1.34 , which was the lowest it's been since at least 2022 (after reviewing prior lab results in his chart). I then discussed his results with Angelo Elliott CNP- who said he could take lasix 20mg BID x1 week if he chose to. Patient told me he's taking 20mg every other day and he does not want to take it twice daily. Zaira said he may decide to take it daily. I asked him to make our office aware if he does in fact start taking it daily, as we will most likely want to recheck labs with the increase. He verbalized understanding. Normal [facility] Orders Onlyon 09-19-2024 Orders Only [id number] Zaira Segura III 1935 M Date Provider Department Center 09/19/2024 [id number], [facility] Family History Problem Relation Age of Onset Other Father Heart failure Sister Family Status - Relation Status Age at Father Sister [facility] Ambulatory Visit Summaryon 0 09-12-2024 Ambulatory Visit Summary Ambulatory Visit Summary ZAIRA SEGURA III :1935 Visit Date:09/12/2024 Ambulatory Visit Instructions Your Diagnosis Type 2 diabetes mellitus with stage 3a chronic kidney disease, with long-term current use of insulin Stage I skin ulcer Chronic kidney disease, stage 3a Nonsmoker Obesity (BMI 30-39.9) BMI 32.0-32.9,adult Your Care Team Attending Physician - GIRISH BECKER CNP Primary Care Physician - Dipesh PABLO, Gilson Tran. This Is Your Medications List Misc Prescription (BD UF MAIDA PEN NEEDLE [id number]) Misc Prescription (Handicap Placard) Misc Prescription (Handicap Placard, 5 years.) Misc Prescription (Pen Lawson) Misc Prescription (pen needles) apixaban (Eliquis 5 mg oral tablet) atorvastatin (Lipitor 20 mg Tab) furosemide (furosemide 20 mg Tab) insulin glargine (Lantus Solostar Pen 100 units/mL subcutaneous solution) insulin lispro (HumaLOG KwikPen 100 units/mL injectable solution) isosorbide mononitrate (isosorbide mononitrate 60 mg ER Tab) losartan (losartan 25 mg Tab) losartan (losartan 50 mg Tab) metoprolol (Metoprolol tartrate 50 mg Tab) Procedures Performed Cardiac catheter (07/21/2022), Angioplasty, Cataract, Inguinal hernia, Stent, Surgery. Discharge Vitals Temperature (Oral) 36.8 ???C Heart Rate (Peripheral) 78 Respiratory Rate 18 Blood Pressure 114/78 Height 182 cm Height 72 in Weight 107 kg Weight 235.894 lb BMI 32.3 What to do next Scheduled Follow-Up Appointments 2024 2:30 PM EST With: Where: [address] [id number]- 2024 3:20 PM EST With: GIRISH BECKER CNP Where: [address] [address]- Medications What How Much When Why Instructions [...] AND BEDTIME Unchanged isosorbide mononitrate (isosorbide mononitrate 60 mg ER Tab) TAKE 1 TABLET BY MOUTH IN THE MORNING *DO NOT CRUSH OR CHEW* Unchanged losartan (losartan 25 mg Tab) 30 EA, 0 Refill(s), TAKE 1 TABLET BY MOUTH EVERY DAY IN THE MORNING Unchanged losartan (losartan 50 mg Tab) See instructions TAKE 1/ 2 TABLET BY MOUTH TWICE A DAY Unchanged metoprolol (Metoprolol tartrate 50 mg Tab) 1 Tablets By Mouth Every day Unchanged Misc Prescription (BD UF MAIDA PEN NEEDLE [id number]) USE 3 TIMES DAILY WITH INSULIN Unchanged Misc Prescription (Handicap Placard) See instructions Expires in 5 years Unchanged Misc Prescription (Handicap Placard, 5 years.) See instructions Weakness generalized Handicap Placard, 5 years. Unchanged Misc Prescription (Pen Lawson) See instructions To be used with giving insulin three times Dx: E11.9 Unchanged Misc Prescription (pen needles) See instructions BD UF maida pen needle 4mm x 32g E11.9 Allergies niacin (Unknown) Problems Ongoing - Any problem that you are currently receiving treatment for. 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 Patient Portal You may access all of your results and other medical record information on our secure patient portal. If you are not signed up for this yet, please contact [employer] at [phone] to get signed up today. Language Information [place] (more content not included)... Normal [facility] Family Medicine Office/Clini c Noteon 09-12-2024 Family Medicine Office/Clinic Note Family Medicine Office/Clinic Note Chief Complaint Review labs The patient presents for a review of lab results and management of chronic conditions. [facility] Staff Pt presents today for 1m A1C recheck. Patient is here for follow up on Diabetes. How often are you checking your blood sugars? _ daily What are your average readings? _all over the place. Paresthesias, Ulcerations or sores? no Lisinopril, aspirin, statin therapy? Yes Foot Exam: due Eye Exam: Last A1c: 08/24/24- 7.3 Pt did have annual labs done 08/24/24 @ [facility]. Ordered by dye colorist dyer. History of Present Illness 89-year-old male presenting with his nephew for a review of lab results and management of chronic conditions. He has a history of chronic kidney disease, stage 3a, with a current glomerular filtration rate of 50, which has shown a gradual decline from previous values of 60 and 49. The patient has not seen a special education assistant and is considering whether to consult one for further management. Patient declines a referral to nephrology at this visit. The patient also has type 2 diabetes mellitus, which is managed with long-term insulin use. Recent lab results show a glucose level of 145, up from 121, and a hemoglobin A1c of 7.3, which is considered acceptable given his cardiac issues. The patient reports weight loss of 6.5 pounds over the last three months, attributed to decreased appetite due to stomach and heart problems. The patient is obese with a BMI in the range of 30-39.9. He is a nonsmoker and has been advised to increase physical activity to improve his HDL cholesterol levels, which have decreased from 60 to 32. He has an open lesion on his LLE for which he is not treating only covering with a gauze pad. Review of Systems PHQ Score Initial Depression Screen Score: 0 SCORE - Cardiovascular: Reports heart problems associated with eating greasy foods. Denies chest pain. - Endocrine: Reports weight loss of 6.5 pounds over the last three months. - Gastrointestinal: Reports decreased appetite due to stomach problems. - Integumentary: Reports slow healing of a water blister, attributed to diabetes and use of Eliquis. Physical Exam Vitals & Measurements T: 36.8 ???C(Oral) HR: 78(Peripheral) RR: 18 BP: 114/78 SpO2: 98% HT: 182 cm HT: 72 in WT: 107 kg WT: 235.894 lb BMI: 32.3 General: alert, no acute distress Skin: Outer aspect of left casillas- open lesion, non draining Cardiovascular: regular rate and rhythm, normal peripheral perfusion Respiratory: Lungs CTA, respirations non labored Extremities: no deformity, no trauma Neurological: oriented x 4, LOC appropriate for age speech normal Assessment/Plan 1. Type 2 diabetes mellitus with stage 3a chronic kidney disease, with long-term current use of insulin (E11.22: Type 2 diabetes mellitus with diabetic chronic kidney disease) - Continue current insulin regimen. - Monitor glucose levels and hemoglobin A1c regularly. - Encouraged low carb diet and exercise as able - No medication refills at this appointment - F/U in 3 months 2. Stage I skin ulcer (L98.499: Non-pressure chronic ulcer of skin of other sites with unspecified severity) - Area cleansed with H2O2, WARREN applied and covered with a non-stick dressing - Encouraged to change the dressing BID with the same procedure 3. Chronic kidney disease, stage 3a (N18.31: Chronic kidney disease, stage 3a) - Consider referral to a special education assistant for further evaluation and management. - Discuss potential adjustment of diuretic medication with dye colorist dyer to reduce renal strain. 4. Nonsmoker (Z78.9: Other specified health status) Encouraged to continue as a non-smoker 5. Obesity (BMI 30-39.9) (E66.9: Obesity, unspecified) - Encourage increased physical activity to improve HDL cholesterol levels. 6. BMI 32.0-32.9,adult (Z68.32: Body mass index [BMI] 32.0-32.9, adult) BMI 32.3 Reviewed laboratory test ordered by dye colorist dyer with patient and nephew; Encouraged to f/u with cardiology Total time spent preparing the chart, conducting of the encounter with the patient and family and time spent documenting, reviewing, and ordering tests was 30 minutes. 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 Normal [facility] Comment on above: Result Comment: Elec tronically Signed By: GIRISH BECKER CNP\.br\Date and Time Signed: 09/12/24 12:11 EDT Orders Onlyon 09-06-2024 Orders Only [id number] Zaira Segura III 1935 M Date Provider Department Center 09/06/2024 [id number], HISTORICAL [facility] Family History Problem Relation Age of Onset Other Father Heart failure Sister Family Status - Relation Status Age at Father Sister Normal [facility] Office Visiton 08-24-2024 Follow-up visit [id number] Zaira Segura III 1935 M Date Provider Department Center 08/24/2024 [id number] ELLIOTTevue Saige Family History Problem Relation Age of Onset Other Father Heart failure Sister Family Status - Relation Status Age at Father Sister Level of Service:60424 MO OFFICE/OUTPATIENT ESTABLISHED MOD MDM 30 MIN Normal [facility] Family Medicine Office/Clini c Noteon 08-07-2024 Family [...] 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 Normal [facility] Comment on above: Result Comment: Elec tronically Signed By: EUGENIO GOMEZ, GIRISH Norwood\.br\Date and Time Signed: 08/07/24 15:25 EDT Reminderson 06-05-2024 Reminders Reminders --- From: Dipesh PABLO, Gilson Jackson To: FMB [...] 22.7 % (14.0 - 50.0) 06/04/2024 13:23 [place] Auto 10.3 % (4.0 - 14.0) 06/04/2024 13:23 Eos Auto 6.6 % (0.0 - 8.0) 06/04/2024 13:23 Basophil Auto 0.5 % (0.0 - 2.0) 06/04/2024 13:23 Neutro Absolute 3.7 E9/L (2.0 - 7.5) 06/04/2024 13:23 Lymph Absolute 1.4 E9/L (1.0 - 4.0) 06/04/2024 13:23 [place] Absolute 0.6 E9/L (0.2 - 1.0) 06/04/2024 [...] to him. Sent to current address. 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 Type 2 diabetes mellitus with hyperglycemia Your Care Team Attending Physician - Gilson Salgado MD Primary Care Physician - Gilson Salgado MD This Is Your Medications List Misc Prescription (BD UF MAIDA PEN NEEDLE [id number]) Misc Prescription (Handicap Placard) Misc Prescription (Handicap Placard, 5 years.) Misc Prescription (Pen Lawson) Misc Prescription (pen needles) apixaban (Eliquis 5 [...] Follow-Up Appointments 2024 2:30 PM EST Where: [facility] [address] [address]- Medications What How Much When Why Instructions [...] Misc Prescription (BD UF MAIDA PEN NEEDLE [id number]) USE 3 TIMES DAILY WITH INSULIN Unchanged Misc Prescription (Handicap Placard) See instructions Expires in 5 years Unchanged Misc Prescription (Handicap Placard, 5 years.) See instructions Weakness generalized Handicap Placard, 5 years. Unchanged Misc Prescription (Pen Lawson) See instructions To be used with giving insulin three times Dx: E11.9 Unchanged Misc Prescription (pen needles) See instructions BD UF maida pen needle 4mm x 32g E11.9 Allergies niacin (Unknown) Problems Ongoing - Any problem that you are currently receiving treatment for. 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 Normal [facility] CBC w/ Auto Diffon 5 Basophils/100 WBC (Bld) 0.5 % Normal 0.0-2.0 [facility] Comment on above: Performed By: #### 2 [id number] #### [facility] [address] [place] [address] Basophils/Leukocytes Auto (Bld) [Pure # fraction] 0.0 E9/L Normal 0.0-0.2 [facility] Comment on above: Performed By: #### 2 [id number] #### [facility] [address] [place] [address] Eosinophils (Bld) [#/Vol] 0.4 E9/L Normal 0.0-0.5 [facility] Comment on above: Performed By: #### 2 [id number] #### [facility] [address] [place] [address] Eosinophils/100 WBC (Bld) 6.6 % Normal 0.0-8.0 [facility] Comment on above: Performed By: #### 2 [id number] #### [facility] [address] [place] [address] Erythrocyte distribution width (RBC) [Ratio] 13.3 % Normal 10.9-14.2 [facility] Comment on above: Performed By: #### 2 [id number] #### [facility] [address] [place] [address] Hematocrit (Bld) [Volume fraction] 41.1 % Normal 37.7-49.0 [facility] Comment on above: Performed By: #### 2 [id number] #### [facility] [address] [place] [address] Hemoglobin (Bld) [Mass/Vol] 14.0 g/dL Normal 13.5-17.5 [facility] Comment on above: Performed By: #### 2 [id number] #### [facility] [address] [place] [address] Lymphocytes (Bld) [#/Vol] 1.4 E9/L Normal 1.0-4.0 [facility] Comment on above: Performed By: #### 2 [id number] #### [facility] [address] [place] [address] Lymphocytes/100 WBC (Bld) 22.7 % Normal 14.0-50.0 [facility] Comment on above: Performed By: #### 2 [id number] #### [facility] [address] [place] [address] MCH (RBC) [Entitic mass] 30.1 pg Normal 27.0-34.0 [facility] Comment on above: Performed By: #### 2 [id number] #### [facility] [address] [place] [address] MCHC (RBC) [Mass/Vol] 34.1 g/dL Normal 31.4-36.0 [facility] Comment on above: Performed By: #### 2 [id number] #### [facility] [address] [place] [address] MCV (RBC) [Entitic vol] 88.4 fL Normal 80.0-100.0 [facility] Comment on above: Performed By: #### 2 [id number] #### [facility] [address] [place] [address] Monocytes (Bld) [#/Vol] 0.6 E9/L Normal 0.2-1.0 [facility] Comment on above: Performed By: #### 2 [id number] #### [facility] Laboratory [address] [place] [address] Neutrophils (Bld) [#/Vol] 3.7 E9/L Normal 2.0-7.5 [facility] Comment on above: Performed By: #### 2 [id number] #### [facility] Laboratory [address] [place] [address] Neutrophils/100 WBC (Bld) 59.9 % Normal 36.0-75.0 [facility] Comment on above: Performed By: #### 2 [id number] #### [facility] Laboratory [address] [place] [address] Platelet mean volume (Bld) [Entitic vol] 9.1 fL Normal 6.4-10.8 [facility] Comment on above: Performed By: #### 2 [id number] #### [facility] Laboratory [address] [place] [address] Platelets (Bld) [#/Vol] 147.0 E9/L Low 150.0-500.0 [facility] Comment on above: Performed By: #### 2 [id number] #### [facility] [address] [place] [address] RBC (Bld) [#/Vol] 4.7 E12/L Normal 4.3-5.9 [facility] Comment on above: Performed By: #### 2 [id number] #### [facility] [address] [place] [address] WBC corrected for nucl RBC Auto (Bld) [#/Vol] 6.2 E9/L Normal 4.0-11.0 [facility] Comment on above: Performed By: #### 2 [id number] #### [facility] [address] [place] [address] CHEMISTRYOrdered By: SYSTEM SYSTEM on 06-04-2024 Albumin [...] [Mass/Vol] 2.7 g/dL Normal 1.4 - 4.0 gm /dL Remisol Chem Glucose [Mass/Vol] 121 mg/dL Normal [...] (Bld) [Mass fraction] 8.2 % High <=5.9% [facility] ChemAutoSS CMPon 06-04-2024 Albumin [Mass/Vol] 4.0 g/dL Normal 3.3-5.0 [facility] Comment on above: Performed By: #### 2 [id number] #### [facility] Laboratory [address] [place] [address] Albumin/Globulin (S) [Mass conc ratio] 1.5 Normal 1.1-2.2 [facility] Comment on above: Performed By: #### 2 [id number] #### [facility] Laboratory [address] [place] [address] ALP [Catalytic activity/Vol] 46 Int._Unit/L Normal 21-98 [facility] Comment on above: Performed By: #### 2 [id number] #### [facility] Laboratory [address] [place] [address] ALT No additional P-5'-P [Catalytic activity/Vol] 13 Int._Unit/L Normal 6-46 [facility] Comment on above: Performed By: #### 2 [id number] #### [facility] Laboratory [address] [place] [address] Anion gap [Moles/Vol] 9 mmol/L Normal 6-16 [facility] Comment on above: Performed By: #### 2 [id number] #### [facility] Laboratory [address] [place] [address] AST [Catalytic activity/Vol] 20 Int._Unit/L Normal 5-43 [facility] Comment on above: Performed By: #### 2 [id number] #### [facility] Laboratory [address] [place] [address] Bilirubin [Mass/Vol] 0.8 mg/dL Normal 0.0-1.1 [facility] Comment on above: Performed By: #### 2 [id number] #### [facility] [address] [place] [address] Calcium [Mass/Vol] 9.0 mg/dL Normal 8.9-11.1 [facility] Comment on above: Performed By: #### 2 [id number] #### [facility] Laboratory [address] [place] [address] Chloride [Moles/Vol] 104 mmol/L Normal 101-111 [facility] Comment on above: Performed By: #### 2 [id number] #### [facility] [address] [place] [address] CO2 [Moles/Vol] 31 mmol/L Normal 21-31 [facility] Comment on above: Performed By: #### 2 [id number] #### [facility] [address] [place] [address] Creatinine [Mass/Vol] 1.4 mg/dL High 0.5-1.3 [facility] Comment on above: Performed By: #### 2 [id number] #### [facility] [address] [place] [address] Globulin (S) [Mass/Vol] 2.7 g/dL Normal 1.4-4.0 [facility] Comment on above: Performed By: #### 2 [id number] #### [facility] [address] [place] [address] Glucose [Mass/Vol] 121 mg/dL Normal 55-199 [facility] Comment on above: Performed By: #### 2 [id number] #### [facility] [address] [place] [address] Potassium [Moles/Vol] 3.7 mmol/L Normal 3.5-5.3 [facility] Comment on above: Performed By: #### 2 [id number] #### [facility] [address] [place] [address] Protein [Mass/Vol] 6.7 g/dL Normal 6.0-7.8 [facility] Comment on above: Performed By: #### 2 [id number] #### [facility] [address] [place] [address] Sodium [Moles/Vol] 140 mmol/L Normal 135-145 [facility] Comment on above: Performed By: #### 2 [id number] #### [facility] [address] [place] [address] Urea nitrogen [Mass/Vol] 28 mg/dL High 5-21 [facility] Comment on above: Performed By: #### 2 [id number] #### [facility] [address] [place] [address] Urea nitrogen/Creatinine [Mass ratio] 20 No Units Normal 10-20 [facility] Comment on above: Performed By: #### 2 [id number] #### [facility] [address] [place] [address] Family Medicine Office/Clini c Noteon 06-04-2024 Family [...] (08/02/23 11:03:00) Referred to wound care @ [facility] @ [facility]. Pt states he does not recollect this. Questions/Concerns : Needs Humalog refill-[facility] [place] History of Present Illness - The patient is an 89-year-old male presenting with chest pain and blood sugar management issues. - Nighttime chest soreness primarily on the left side, alleviated by positional changes. - Long-standing paroxysmal atrial fibrillation and coronary artery disease; has not seen dye colorist dyer Dr. Mcbride for months. - Significant hyperglycemic episodes with dietary challenges noted as a cause. - Darken wounds on the legs observed, oozing slightly, yet improving without immediate intervention. - Discussed dietary influences on blood sugar control, emphasizing the effects of high carbohydrate intake from Nigerian fries and applesauce. - Reviewed necessity of [...] Metabolic Panel HgbA1c Microalbumin Level Urine Urine Microalbumin/Creat inine Ratio 2. BMI 33.0-33.9,adult (Z68.33: Body mass index [BMI] 33.0-33.9, adult) - Address weight management. Ordered: CBC w/ Auto Diff Comprehensive Metabolic Panel HgbA1c Microalbumin Level Urine Urine Microalbumin/Creat inine Ratio 3. Nonsmoker (Z78.9: Other specified health status) Please continue to not smoke Ordered: CBC w/ Auto Diff Comprehensive Metabolic Panel HgbA1c Microalbumin Level Urine Urine Microalbumin/Creat inine Ratio 4. Obesity (BMI 30-39.9) (E66.9: Obesity, [...] 130-139 mm Hg (Most Recent) 3075F Urine Microalbumin/Creat inine Ratio 5. HTN (hypertension) (I10: Essential (primary) hypertension) Ordered: CBC w/ Auto Diff Comprehensive Metabolic Panel HgbA1c Microalbumin Level Urine Urine Microalbumin/Creat inine Ratio 6. CAD in augustine artery (I25.10: 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) - Monitor symptoms, follow up with dye colorist dyer if needed. Ordered: CBC w/ Auto Diff Comprehensive Metabolic Panel HgbA1c Microalbumin Level Urine Urine Microalbumin/Creat inine Ratio 7. Type 2 diabetes mellitus with hyperglycemia (E11.65: Type 2 diabetes mellitus with hyperg (more content not included)... Normal [facility] Comment on above: Result Comment: Elec tronically Signed By: Dipesh PABLO, Gilson Jackson\.br\Date and Time Signed: 06/04/24 13:12 EDT HEMATOLOGYOrdered [...] [#/Vol] 0.6 E9/L Normal 0.2 - 1.0 E9 /L Remisol Heme Monocytes/100 WBC (Bld) 10.3 % Normal 4.0 - 14.0 % Remisol Heme Neutrophils (Bld) [#/Vol] 3.7 E9/L Normal 2.0 - 7.5 E9/L Remisol Heme Neutrophils/100 WBC (Bld) 59.9 % Normal 36.0 - 75.0 % Remisol Heme Platelet mean volume (Bld) [Entitic vol] 9.1 fL Normal 6.4 - 10.8 fL Remisol Heme Platelets (Bld) [#/Vol] 147.0 E9/L Low 150. 0 - 500.0 E9/L Remisol Heme RBC (Bld) [#/Vol] 4.7 E12/L Normal 4.3 - 5.9 E12/L Re misol Heme WBC corrected for nucl RBC Auto (Bld) [#/Vol] 6.2 E9/L Normal 4.0 - 11.0 E9/L Remisol H gilberto [id number] 06-04-2024 HbA1c (Bld) [Mass fraction] 8.2 % High <=5.9 [facility] Comment on above: Performed By: #### 7 [id number] #### [facility] Laboratory [address] [place] [address] U MA/Cr Ratioon 06-04-2024 Albumin DL <= 20 mg/L (U) [Mass/Vol] 3.4 mg/dL High 0.0-1.9 [facility] Comment on above: Performed By: #### 1 [id number] #### [facility] Laboratory [address] [place] [address] Albumin/Creatinine DL <= 20 mg/L (U) [Mass ratio] 61.8 mg/gm Cr High .0-30.0 [facility] Comment on above: Result Comment: 30-3 00 mg/g Cr indicates an increased risk for diabetic nephropathy. >300 mg/g Cr is consistent with clinical nephropathy. Performed By: #### 1 [id number] #### [facility] Laboratory [address] [place] [address] U Creatinine 55.0 mg/dL Invalid Interpretation Code [facility] Comment on above: Performed By: #### 1 [id number] #### [facility] Laboratory [address] [place] [address] eGFRon 06-04-2024 eGFR 49 mL/min/1.73 m2 Low >=59 [facility] Comment on above: Performed By: #### 1 [id number] #### [facility] [address] [place] [address] Ambulatory Visit Summaryon 0 03-05-2024 Ambulatory Visit [...] Misc Prescription (BD UF MAIDA PEN NEEDLE [id number]) Misc Prescription (Handicap Placard) Misc Prescription (Handicap Placard, 5 years.) Misc Prescription (Pen Lawson) Misc Prescription (pen needles) apixaban (Eliquis 5 [...] Follow-Up Appointments Tuesday 1:00 PM EDT With: Dipesh PABLO, Gilson Jackson Where: [address] [address] 2:30 PM EST With: Where: [address] [address]- Medications What How Much When Why Instructions [...] Misc Prescription (BD UF MAIDA PEN NEEDLE [id number]) USE 3 TIMES DAILY WITH INSULIN Unchanged Misc Prescription (Handicap Placard) See instructions Expires in 5 years Unchanged Misc Prescription (Handicap Placard, 5 years.) See instructions Weakness generalized Handicap Placard, 5 years. Unchanged Misc Prescription (Pen Lawson) See instructions To be used with giving insulin three times Dx: E11.9 Unchanged Misc Prescription (pen needles) See instructions BD UF maida pen needle 4mm x 32g E11.9 Allergies niacin (Unknown) Problems Ongoing - Any problem that you are currently receiving treatment for. BMI 32.0-32.9,adult BMI 33.0-33.9,adult CAD in augustine artery Chronic combined systolic (congestive) and diastolic [...] for choosing us for your care. Normal [facility] Family Medicine Office/Clini c Noteon 03-05-2024 Family [...] to be rechecked today. Ordered: A1c POC [id number] 2. Type 2 diabetes mellitus with peripheral [...] are advised. 4. Long-term insulin use (Z79.4: terminal worker (current) use of insulin) Continue monitoring blood [...] Peripheral vascula (more content not included)... Normal [facility] Comment on above: Result Comment: Elec tronically Signed By: Gilson Salgado MD\.br\Date and Time Signed: 03/05/24 11:37 EST Pre-Visit Planningon 025 Pre-Visit Planning Pre-Visit Planning --- From: Tanya Mena To: Gilson Salgado MD; Sent: 03/02/2024 17:29:11 EST Subject: Pre-Visit Planning Due Date/Time: 03/02/2024 17:29:00 EST Caller Name: ZAIRA SEGURA III; Caller Number: H Al Dr. Salgado. During a pre-visit planning chart review, I noted the following documentation in the medical record indicates this patient has been diagnosed as having: Open wound of LLE (Unspecified open wound, left lower leg, initial encounter). ??? The following is also documented in the medical record: 07/13/2023 [facility] ED Note (page 2): 08/08/2023 Office [...] feel free to contact me at extension [phone]. Thank you! Tanya Mena LPN [employer] [place] [address] Extension: [phone] [email or web address] --- From: Gilson Salgado MD To: Tanya Mena; Cc: Danna WINCHESTER MD; Sent: 03/05/2024 07:55:44 EST Subject: RE: Pre-Visit Planning Caller Name: ZAIRA SEGURA III; Caller Number: H Since that was 6 months ago I cannot answer this question. Thanks No open wound. So this can be resolved. --- From: Danna WINCHESTER MD To: Tanya Mena; Sent: 03/05/2024 16:21:32 EST Subject: RE: Pre-Visit Planning Caller Name: ZAIRA SEGURA III; Caller Number: H Normal [facility] Ambulatory Visit Summaryon 1 02-17-2023 Ambulatory [...] type 1 diabetes mellitus Long-term insulin use, skilled nursing (current) use of insulin Type 2 diabetes mellitus with hyperglycemia, without long-term current use of insulin HTN (hypertension) Immunization declined Obesity due to excess calories Your Care Team Attending Physician - Gilson Salgado MD Primary Care Physician - Gilson Salgado MD This Is Your Medications List Misc Prescription (BD UF MAIDA PEN NEEDLE [id number]) Misc Prescription (Handicap Placard) Misc Prescription (Handicap Placard, 5 years.) Misc Prescription (Pen Lawson) Misc Prescription (pen needles) apixaban (Eliquis 5 [...] Follow-Up Appointments 2024 1:00 PM EST With: Gilson Salgado MD Where: [address] [address] 2:30 PM EST With: Where: [address] [address] Medications What How Much When Why Instructions [...] Misc Prescription (BD UF MAIDA PEN NEEDLE [id number]) USE 3 TIMES DAILY WITH INSULIN Unchanged Misc Prescription (Handicap Placard) See instructions Expires in 5 years Unchanged Misc Prescription (Handicap Placard, 5 years.) See instructions Weakness generalized Handicap Placard, 5 years. Unchanged Misc Prescription (Pen Lawson) See instructions To be used with giving insulin three times Dx: E11.9 Unchanged Misc Prescription (pen needles) See instructions BD UF maida pen needle 4mm x 32g E11.9 Allergies niacin (Unknown) Problems Ongoing - Any problem that you are currently receiving treatment for. BMI 32.0-32.9,adult CAD in augustine artery Chronic combined systolic (congestive) and diastolic [...] w (more content not included)... Normal [facility] Medicine Office/Clini c Noteon 12-19-2023 Family Medicine Office/Clinic Note Family Medicine Office/Clinic Note Chief Complaint Subsequent Medicare Wellness History of Present Illness Covid-19, MERS, Ebola Screen *Contact With Person With Highly Contagious Disease Like Ebola/MERS/COVID-1 9 AND Have One or More of the Symptoms Below : No *Travel to a Country With Wide-Spread Ebola/MERS/COVID-1 9 in the Past 21 Days AND Have One or More of the Symptoms Below : No Patient Reported Covid-19 Testing : No *Verify Droplet, Contact Precautions for Ebola (Reference for CDC) : N/A *Verify Airborne, Droplet Precautions for MERS/COVID-19 : N/A Zeinab Rodriguez - 12/15/2023 14:41 EST Medicare/Medicaid Summary Chief [...] Rating Pain Score : 3 Zeinab Rodriguez 12/15/2023 14:41 EST Hearing and Vision Screening FT FT Whisper Test Comments : slight hearing deficit in left ear. Has hearing aides, does not wear. Vision Screen Comments : no corrective lens. Zeinab Rodriguez 12/15/2023 14:41 EST Advance Directive FT Advance Directive : Yes Type of Advance Directive : Living will, Medical durable power of admitted attorneys Location of Advance Directive : Family to bring in copy from home Organ Donation Consent : No Zeinab Rodriguez 12/15/2023 14:41 EST Procedures / Surgeries FT - Procedure History (As Of: 12/15/2023 15:00:07 EST) Anesthesia Minutes: 0 ; Procedure Name: Angioplasty ; Procedure Minutes: 0 ; Comments: 04/23/2022 11:38 EDT Daxa Jiménez Rt leg 2020 ; Last Reviewed Dt/Tm: 12/15/2023 14:45:01 EST Anesthesia Minutes: 0 ; Procedure Name: Stent ; Procedure Minutes: 0 ; Comments: 04/23/2022 11:38 EDT Daxa Jiménez Rt Leg 2020 ; Last Reviewed Dt/Tm: 12/15/2023 14:45:01 EST Procedure Dt/Tm: 07/21/2022 ; Anesthesia Minutes: 0 ; Procedure Name: Cardiac catheter ; Procedure Minutes: 0 ; Last Reviewed Dt/Tm: 12/15/2023 14:45:01 EST Anesthesia Minutes: 0 ; Procedure Name: Surgery ; Procedure Minutes: 0 ; Comments: 04/23/2022 11:39 EDT Daxa Jiménez Rt foot for infection ; Last Reviewed Dt/Tm: 12/15/2023 14:45:01 EST Anesthesia Minutes: 0 ; Procedure Name: Inguinal hernia ; Procedure Minutes: 0 ; Last Reviewed Dt/Tm: 12/15/2023 14:45:01 EST Anesthesia Minutes: 0 ; Procedure Name: Cataract, both eyes ; Procedure Minutes: 0 ; Comments: 04/20/2023 7:56 MAET - Tricia Aguilera LPN 2022 ; Last Reviewed Dt/Tm: 12/15/2023 14:45:01 [...] EST Confident (more content not included)... Normal [facility] Comment on above: Result Comment: [...] in adult Nonsmoker Paroxysmal A-fib CAD in augustine artery Your Care Team Attending Physician - Gilson Salgado MD. Primary Care Physician - Gilson Salgado MD This Is Your Medications List Contact prescribing physician if questions or concerns Misc Prescription (BD UF MAIDA PEN NEEDLE [id number]) Misc Prescription (Handicap Placard) Misc Prescription (Handicap Placard, 5 years.) Misc Prescription (Pen Lawson) Misc Prescription (pen needles) apixaban (Eliquis 5 [...] Appointments Tuesday 1:00 PM EDT With: Where: [address] [address] 1:00 PM EST With: Gilson Salgado MD Where: [address] [address]- Medications What How Much When Why Instructions [...] Misc Prescription (BD UF MAIDA PEN NEEDLE [id number]) USE 3 TIMES DAILY WITH INSULIN Contact prescribing physician if questions or concerns Unchanged Misc Prescription (Handicap Placard) See instructions Expires in 5 years Contact prescribing physician if questions or concerns Unchanged Misc Prescription (Handicap Placard, 5 years.) See instructions Weakness generalized Handicap Placard, 5 years. Contact prescribing physician if questions or concerns Unchanged Misc Prescription (Pen Lawson) See instructions To be used with giving insulin three times Dx: E11.9 Contact prescribing physician if questions or concerns Unchanged Misc Prescription (pen needles) See instructions BD UF maida pen needle 4mm x 32g E11.9 Contact prescribing physician if questions or concerns Allergies niacin (Unknown) Problems Ongoing - Any problem that you are currently receiving treatment for. CAD in augustine artery Chronic combined systolic (congestive) and diastolic [...] - Hypertension (more content not included)... Normal [facility] Family Medicine Office/Clini c Noteon 11-01-2023 [...] brought log with him Yearly BMP: 08/02/23 questions/concerns : dye colorist dyer increased his metoprolol to 100mg bid, Zaira [...] Hg (Most Recent) 3074F 8. CAD in augustine artery (I25.10: 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) - NO CP today. Patient states the reason why they increased his metoprolol was because he was complaining of chest pain at night. Patient states it was when he was lying down. Patient denies acid reflux. I believe it may be acid reflux causing the chest pain. Advised the linh (more content not included)... Normal [facility] Comment on above: Result Comment: Elec tronically Signed By: Dipesh PABLO, Gilson Jackson\.br\Date and Time Signed: 11/01/23 14:24 EDT Family Medicine Office/Clini c Noteon 08-08-2023 Family [...] Problem List/Past Medical History Ongoing CAD in augustine artery Chronic combined systolic (congestive) and diastolic [...] Surgery. Medications BD UF MAIDA PEN NEEDLE [id number] Eliquis 5 mg oral tablet, 5 mg= [...] pen needles, See Instructions, 2 refills Pen Lawson, See Instructions, 1 refills Allergies niacin (Unknown) [...] 20-valent conjugate vaccine 01/04/2022 Recorded SARS-CoV-2 (COVID-19) [id number] 01/04/2022 Recorded SARS-CoV-2 (COVID-19) mRNA BNT-162b2 vax 12/08/2020 Recorded 2022-04-19: [id number] SARS-CoV-2 (COVID-19) mRNA BNT-162b2 vax 06/04/2020 Recorded SARS-CoV-2 (COVID-19) mRNA BNT-162b2 vax 05/14/2020 Recorded Normal [facility] Comment on above: Result Comment: Elec [...] Misc Prescription (BD UF MAIDA PEN NEEDLE [id number]) Misc Prescription (Handicap Placard) Misc Prescription (Handicap Placard, 5 years.) Misc Prescription (Pen Lawson) Misc Prescription (pen needles) apixaban (Eliquis 5 [...] EDT With: Dipesh PABLO, Gilson Jackson Where: [place] [id number]- \.br\ Medications\.br\ What How Much When Why Instructions\.br \ Unchanged insulin lispro (HumaLOG KwikPen 100 units/ mL injectable solution) See instructions USE DIRECTED *MAX OF 10 UNITS/ DAY * BEFOR MEALS AND BEDTIME Pickup at [id number]\.br\ Unchanged apixaban (Eliquis 5 mg oral tablet) [...] Misc Prescription (BD UF MAIDA PEN NEEDLE [id number]) USE 3 TIMES DAILY WITH INSULIN Contact prescribing physician if questions or concerns \.br\ Unchanged Misc Prescription (Handicap Placard) See instructions Expires in 5 years Contact prescribing physician if questions or concerns \.br\ Unchanged Misc Prescription (Handicap Placard, 5 years.) See instructions Weakness generalized Handicap Placard, 5 years. Contact prescribing physician if questions or concerns \.br\ Unchanged Misc Prescription (Pen Lawson) See instructions To be used with giving insulin three times Dx: E11.9 Contact prescribing physician if questions or concerns \.br\ Unchanged Misc Prescription (pen needles) See instructions BD UF maida pen needle 4mm x 32g E11.9 Contact prescribing physician if questions or concerns \.br\ Pharmacy Information\.br\ [id number]: [address], [place] [phone]\.br\ Allergies\.br\ niacin (Unknown)\.br\ Problems\.br\ Ongoing - Any problem that you are currently receiving treatment for.\.br\ CAD in augustine artery\.br\ Chronic combined systolic (congestive) and diastolic [...] for choosing us for your care.\.br\ \.br\ [facility] CHEMISTRYOrdered By: SYSTEM SYSTEM on 08-02-2023 [...] [Mass/Vol] 3.0 g/dL Normal 1.4 - 4.0 gm /dL Remisol Chem Glucose [Mass/Vol] 61 mg/dL Normal [...] 08-02-2023 Albumin [Mass/Vol] 4.0 g/dL Normal 3.3-5.0 [facility] Comment on above: Performed By: #### 2 [id number] #### [facility] Laboratory [address] [place] [address] Albumin/Globulin (S) [Mass conc ratio] 1.3 Normal 1.1-2.2 [facility] Comment on above: Performed By: #### 2 [id number] #### [facility] Laboratory [address] [place] [address] ALP [Catalytic activity/Vol] 50 Int._Unit/L Normal 21-98 [facility] Comment on above: Performed By: #### 2 [id number] #### [facility] Laboratory [address] [place] [address] ALT No additional P-5'-P [Catalytic activity/Vol] 17 Int._Unit/L Normal 6-46 [facility] Comment on above: Performed By: #### 2 [id number] #### [facility] [address] [place] [address] Anion gap [Moles/Vol] 9 mmol/L Normal 6-16 [facility] Comment on above: Performed By: #### 2 [id number] #### [facility] Laboratory [address] [place] [address] AST [Catalytic activity/Vol] 24 Int._Unit/L Normal 5-43 [facility] Comment on above: Performed By: #### 2 [id number] #### [facility] [address] [place] [address] Bilirubin [Mass/Vol] 0.9 mg/dL Normal 0.0-1.1 [facility] Comment on above: Performed By: #### 2 [id number] #### [facility] [address] [place] [address] Calcium [Mass/Vol] 9.1 mg/dL Normal 8.9-11.1 [facility] Comment on above: Performed By: #### 2 [id number] #### [facility] [address] [place] [address] Chloride [Moles/Vol] 105 mmol/L Normal 101-111 [facility] Comment on above: Performed By: #### 2 [id number] #### [facility] [address] [place] [address] CO2 [Moles/Vol] 32 mmol/L High 21-31 [facility] Comment on above: Performed By: #### 2 [id number] #### [facility] [address] [place] [address] Creatinine [Mass/Vol] 1.4 mg/dL High 0.5-1.3 [facility] Comment on above: Performed By: #### 2 [id number] #### [facility] [address] [place] [address] Globulin (S) [Mass/Vol] 3.0 g/dL Normal 1.4-4.0 [facility] Comment on above: Performed By: #### 2 621524 #### [facility] [address] [place] [address] Glucose [Mass/Vol] 61 mg/dL Normal 55-199 [facility] Comment on above: Performed By: #### 2 767921 #### [facility] [address] [place] [address] Potassium [Moles/Vol] 4.0 mmol/L Normal 3.5-5.3 [facility] Comment on above: Performed By: #### 2 120467 #### [facility] [address] [place] [address] Protein [Mass/Vol] 7.0 g/dL Normal 6.0-7.8 [facility] Comment on above: Performed By: #### 2 496075 #### [facility] [address] [place] [address] Sodium [Moles/Vol] 142 mmol/L Normal 135-145 [facility] Comment on above: Performed By: #### 2 078764 #### [facility] [address] [place] [address] Urea nitrogen [Mass/Vol] 28 mg/dL High 5-21 [facility] Comment on above: Performed By: #### 2 762852 #### [facility] [address] [place] [address] Urea nitrogen/Creatinine [Mass ratio] 20 No Units Normal 10-20 [facility] Comment on above: Performed By: #### 2 819400 #### [facility] [address] [place] [address] Ambulatory Visit Summaryon 0 07-25-2023 Ambulatory Visit Summary ZAIRA SEGURA III :1935 Visit Date:07/25/2023 Ambulatory Visit Instructions Your Diagnosis Open wound of left lower extremity, subsequent encounter 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 Primary Care Physician - Gilson Salgado MD This Is Your Medications List Misc Prescription (BD UF MAIDA PEN NEEDLE [id number]) Misc Prescription (Handicap Placard) Misc Prescription (Handicap Placard, 5 years.) Misc Prescription (Pen Lawson) Misc Prescription (pen needles) apixaban (Eliquis 5 [...] EDT With: Dipesh PABLO, Gilson Jackson Where: [place] [phone]- \.br\ Medications\.br\ What How Much When Why [...] Misc Prescription (BD UF MAIDA PEN NEEDLE [id number]) USE 3 TIMES DAILY WITH INSULIN \.br\ Unchanged Misc Prescription (Handicap Placard) See instructions Expires in 5 years \.br\ Unchanged Misc Prescription (Handicap Placard, 5 years.) See instructions Weakness generalized Handicap Placard, 5 years. \.br\ Unchanged Misc Prescription (Pen Lawson) See instructions To be used with giving insulin three times Dx: E11.9 \.br\ Unchanged Misc Prescription (pen needles) See instructions BD UF maida pen needle 4mm x 32g E11.9 \.br\ Allergies\.br\ niacin (Unknown)\.br\ Problems\.br\ Ongoing - Any problem that you are currently receiving treatment for.\.br\ CAD in augustine artery\.br\ Chronic combined systolic (congestive) and diastolic [...] choosing us for your care.\.br\ \.br\ [facility] Medicine Office/Clini c Noteon 07-25-2023 Family Medicine Office/Clinic Note HPI Staff Zaira is an 88 year old male presenting for face to face for home health for dressing changes. [facility] health [phone] Had a paramed visit and he wasn't happy with that situation, they can't come daily and he wants someone there daily for this. questions/concerns : stopped his farxiga 3 days ago and [...] wound of left lower extremity, subsequent encounter (S81.072D: Unspecified open wound, left lower leg, subsequent [...] noncompliant Ordered: Ambulatory Home Health Orders 4. 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 Pt is aware and rolled his eyes. I removed the patient from by practice over 2 years ago for the same behavior. 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 Normal [facility] Comment on above: Result Comment: Elec tronically Signed By: Dipesh PABLO, Gilson Jackson\.br\Date and Time Signed: 07/25/23 14:46 EDT ED Note-Physicianon 07-21-19 ED Note-Physician [id number]#1.00TIFF [facility] Physician Referralon 024 Physician Referral [id number]#1.00TIFF [facility] Family Medicine Office/Clini c Noteon 07-19-2023 Family Medicine Office/Clinic Note Chief Complaint wound HPI Staff Zaira is a 88 year old male presenting for Er follow up ER followup: Hospital: [facility] Visit date:07/13/23 Symptoms the patient presented with:wound/lacerat ion- dressing change- had maggots on wound, took [...] bottom of the wound. He went to [facility] ED because of this. He reports [...] psychiatric thoughts. Assessment/Plan 1. Open leg wound (S81.209X: Unspecified open wound, unspecified lower leg, initial encounter) Area cleansed with saline and WARREN applied and covered with a dry dressing Referral to HH for dressing changes completed Encouraged to f/u with Dr Salgado for questions about his diabetic medications Continue the ATB as ordered by the ED. Encouraged to keep the appointment as scheduled with Dr. Salgado Ordered: [facility] External Ambulatory Referral 2. 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 Medications BD UF MAIDA PEN NEEDLE [id number] cephalexin 500 mg Cap Eliqui (more content not included)... 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 ? Change your dressing as told by [...] by your health care provider. ? Take slbb-xur-otkhfee and prescription medicines only as told by [...] drive yourself to the hospital. Summary ? Alway (more content not included)... Normal [facility] Ambulatory Visit Summaryon 0 05-02-2023 Ambulatory Visit Summary ZAIRA SEGURA III :1935 Visit Date:05/02/2023 Ambulatory Visit Instructions Your Diagnosis BMI 33.0-33.9,adult Your Care Team Attending Physician - Gilson Salgado MD Primary Care Physician - Gilson Salgado MD This Is Your Medications List Misc Prescription (BD UF MAIDA PEN NEEDLE [id number]) Misc Prescription (Handicap Placard) Misc Prescription (Handicap Placard, 5 years.) Misc Prescription (Pen Lawson) Misc Prescription (pen needles) apixaban (Eliquis 5 [...] Follow-Up Appointments Tuesday 10:00 AM EDT With: Gilson Salgado MD Where: [facility] Normal [address] [place] [phone] \.br\ Medications\.br\ What How Much When Why [...] Misc Prescription (BD UF MAIDA PEN NEEDLE [id number]) USE 3 TIMES DAILY WITH INSULIN \.br\ Unchanged Misc Prescription (Handicap Placard) See instructions Expires in 5 years \.br\ Unchanged Misc Prescription (Handicap Placard, 5 years.) See instructions Weakness generalized Handicap Placard, 5 years. 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 [...] for choosing us for your care.\.br\ \.br\ 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 Patient [...] Will monitor 3. 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 Medications BD UF MAIDA PEN NEEDLE [id number] Eliquis 5 mg oral tablet, 5 mg= [...] pen needles, See Instructions, 1 refills Pen Lawson, See Instructions, 1 refills Allergies niacin (Unknown) [...] 20-valent conjugate vaccine 01/04/2022 Recorded SARS-CoV-2 (COVID-19) [id number] 01/04/2022 Recorded SARS-CoV-2 (COVID-19) mRNA BNT-162b2 vax 12/08/2020 Recorded 2022-04-19: [id number] SARS-CoV-2 (COVID-19) mRNA BNT-162b2 vax 06/04/2020 Recorded SARS-CoV-2 (COVID-19) mRNA BNT-162b2 vax 05/14/2020 Recorded Normal [facility] Comment on above: Result Comment: Elec tronically Signed By: Dipesh PABLO, Gilson Jackson\.br\Date and Time Signed: 05/02/23 11:53 EDT Patient [...] numbers. This can be done either in [place] ([place] or metric measurements. Note that charts and online BMI calculators are available to help you find your BMI quickly and easily without having to do these calculations yourself. To calculate your BMI in [place] ([place] measurements: 1. Measure your weight in [...] for Disease Control and Prevention: www.cdc.gov ? [place] Heart Association: www.heart.org ? National Heart, Lung, and Blood [place]: www.nhlbi.nih.gov Summary ? Body mass index (BMI) is a number that is calculated from a person's weight and height. ? BMI may help estimate how much of a person's weight is composed of fat. BMI can help identify those who may be at higher risk for certain medical problems. ? BMI can be measured using [place]e measurements or metric measurements. ? BMI charts are used to identify whether you are underweight, normal weight, overweight, or obese. This information is not intended to replace advice given to you by your health care provider. Make sure you discuss any questions you have with your health care provider. Document Revised: 10/17/2019 Document Reviewed: 08/24/2019 [employer] Patient Education ? 2022 [employer] [facility] Pre-Visit Planningon 03--2 024 Pre-Visit Planning --- From: Tanya Mena To: Gilson Salgado MD; Sent: 04/29/2023 11:00:44 EDT Subject: Pre-Visit Planning Due Date/Time: 04/29/2023 11:00:00 EDT Caller Name: ZAIRA SEGURA III; Caller Number: H Al Dr. Salgado. 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 Sunday Savage dated 10/13/2022, and Cardiomyopathy unspecified per [...] feel free to contact me at extension [phone]. Thank you! Tanya Mena LPN --- From: Dipesh PABLO, Gilson Jackson To: Tanya Mena; Sent: 05/02/2023 12:26:37 EDT Subject: RE: Pre-Visit Planning Caller Name: ZAIRA SEGURA III; Caller Number: H Chronic combined systolic (congestive) and diastolic (congestive) heart failure Please add Normal [address] [facility] [id number] 04-21-2023 HbA1c (Bld) [Mass fraction] 8.6 % High <=5.9 [facility] Comment on above: Performed By: #### 2 547758, 8124902, [id number], 09655573, 2798060 ####[facility] [address] [place] [address] U Microalbon 04-21-2023 Albumin DL <= 20 mg/L (U) [Mass/Vol] 5.1 mg/dL High 0.0-1.9 [facility] Comment on above: Performed By: #### 1 [id number], [id number] ####[facility] [address] [place] [address] U Protein/Creat Ratioon 04-07 Protein/Creatinine (U) [Ratio] 24.80 mg/gm Cr Normal .00-200.00 [facility] Comment on above: Performed By: #### 1 [id number], [id number] ####[facility] [address] [place] [address] U Creatinine 58.4 mg/dL Invalid Interpretation Code [facility] Comment on above: Performed By: #### 1 [id number], [id number] ####[facility] [address] [place] [address] Ur Total Protein 14.5 mg/dL Invalid Interpretation Code [facility] Comment on above: Performed By: #### 1 [id number], [id number] ####[facility] [address] [place] [address] Ambulatory Visit Summaryon 0 04-20-2023 Ambulatory Visit [...] Misc Prescription (BD UF MAIDA PEN NEEDLE [id number]) Misc Prescription (Handicap Placard) Misc Prescription (Handicap Placard, 5 years.) Misc Prescription (Pen Lawson) Misc Prescription (pen needles) apixaban (Eliquis 5 [...] Follow-Up Appointments 2023 9:15 AM EDT With: Dipesh PABLO, Gilson Jackson Where: [facility] Normal [address] [place] [phone]- \.br\ Medications\.br\ What How Much When Why [...] Misc Prescription (BD UF MAIDA PEN NEEDLE [id number]) USE 3 TIMES DAILY WITH INSULIN Contact [...] or concerns \.br\ Unchanged Misc Prescription (Pen Lawson) See instructions To be used with giving insulin three times Dx: E11.9 Contact prescribing physician if questions or concerns \.br\ Allergies\.br\ niacin (Unknown)\.br\ Problems\.br\ Ongoing - Any problem that you are currently receiving treatment for.\.br\ 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 [...] numbers. This can be done either in [place] ([place] or metric measurements. Note that charts and online BMI calculators are available to help you find your BMI quickly and easily without having to do these calculations yourself.\.br\ To calculate your BMI in [place] ([place] measurements:\.b r\ \.br\ 1. \.br\ Measure [...] Disease Control and Prevention: www.cdc.gov\.br\ ? \.br\ [place] Heart Association: www.heart.org\.b r\ ? \.br\ National Heart, Lung, and Blood [place]: www.nhlbi.nih.go v\.br\ Summary\.br\ ? \.br\ Body mass index (BMI) is a number that is calculated from a person's weight and height.\.br\ ? \.br\ BMI may help estimate how much of a person's weight is composed of fat. BMI can help identify those who may be at higher risk for certain medical problems.\.br\ ? \.br\ BMI can be measured using [place]e measurements or metric measurements.\.b r\ ? \.br\ BMI charts are used to identify whether you are underweight, normal weight, overweight, or obese. [facility] CBC w/ Auto Diffon 4 Basophils/100 WBC (Bld) 0.5 % Normal 0.0-2.0 [facility] Comment on above: Performed By: #### 2 256610, 1453658, 589379203, 66685912, 7348151 ####[address] [address] Basophils/Leukocytes Auto (Bld) [Pure # fraction] 0.0 E9/L Normal 0.0-0.2 [facility] Comment on above: Performed By: #### 2 857315, 2558242, 225587467, 95439222, 7730912 ####[address] [address] Eosinophils (Bld) [#/Vol] 0.5 E9/L Normal 0.0-0.5 [facility] Comment on above: Performed By: #### 2 127216, 0762513, 318750532, 71184041, 4712232 ####[address] [address] Eosinophils/100 WBC (Bld) 7.1 % Normal 0.0-8.0 [facility] Comment on above: Performed By: #### 2 963553, 5858766, 735084563, 62005683, 3948933 ####[address] [address] Erythrocyte distribution width (RBC) [Ratio] 13.5 % Normal 10.9-14.2 [facility] Comment on above: Performed By: #### 2 067963, 8267492, 316752346, 41090449, 7663528 ####[address] [address] Hematocrit (Bld) [Volume fraction] 43.3 % Normal 37.7-49.0 [facility] Comment on above: Performed By: #### 2 504404, 1401996, 705018735, 82927974, 4877566 ####[address] [address] Hemoglobin (Bld) [Mass/Vol] 14.2 g/dL Normal 13.5-17.5 [facility] Comment on above: Performed By: #### 2 166950, 6415249, 775390801, 18234179, 9743926 ####[facility] [address] [place] [address] Lymphocytes (Bld) [#/Vol] 1.7 E9/L Normal 1.0-4.0 [facility] Comment on above: Performed By: #### 2 749780, 6632890, 910640183, 12565404, 5064918 ####[address] [address] Lymphocytes/100 WBC (Bld) 24.2 % Normal 14.0-50.0 [facility] Comment on above: Performed By: #### 2 127774, 2663840, 059343016, 35635816, 6416859 ####[address] [address] MCH (RBC) [Entitic mass] 29.4 pg Normal 27.0-34.0 [facility] Comment on above: Performed By: #### 2 113808, 0897488, 241278536, 18932517, 8918602 ####[facility] [address] [place] [address] MCHC (RBC) [Mass/Vol] 32.7 g/dL Normal 31.4-36.0 [facility] Comment on above: Performed By: #### 2 497424, 8038853, 535162191, 56214094, 2965103 ####[facility] [address] [place] [address] MCV (RBC) [Entitic vol] 90.0 fL Normal 80.0-100.0 [facility] Comment on above: Performed By: #### 2 824622, 4111250, 725346379, 34011380, 3953351 ####[address] [address] Monocytes (Bld) [#/Vol] 0.8 E9/L Normal 0.2-1.0 [facility] Comment on above: Performed By: #### 2 728809, 0018737, 473668865, 14528728, 0592542 ####[facility] [address] [place] [address] Neutrophils (Bld) [#/Vol] 3.9 E9/L Normal 2.0-7.5 [facility] Comment on above: Performed By: #### 2 412059, 1235270, 285412465, 38475237, 9943249 ####[address] [address] Neutrophils/100 WBC (Bld) 57.0 % Normal 36.0-75.0 [facility] Comment on above: Performed By: #### 2 518654, 5023253, 736545330, 74661992, 2511149 ####[address] [address] Platelet mean volume (Bld) [Entitic vol] 9.3 fL Normal 6.4-10.8 [facility] Comment on above: Performed By: #### 2 627699, 7531662, 662171358, 79690411, 8251328 ####[address] [address] Platelets (Bld) [#/Vol] 144.0 E9/L Low 150.0-500.0 [facility] Comment on above: Performed By: #### 2 354881, 5538574, 760147446, 40092581, 4375818 ####[facility] [address] [place] [address] RBC (Bld) [#/Vol] 4.8 E12/L Normal 4.3-5.9 [facility] Comment on above: Performed By: #### 2 906939, 4141926, 922929899, 79299239, 5985856 ####[address] [address] WBC corrected for nucl RBC Auto (Bld) [#/Vol] 6.9 E9/L Normal 4.0-11.0 [facility] Comment on above: Performed By: #### 2 422771, 0634978, 175338604, 28116796, 4559840 ####[facility] [address] [place] [address] CHEMISTRYOrdered By: SYSTEM SYSTEM on 04-20-2023 Albumin [...] [Mass/Vol] 2.7 g/dL Normal 1.4 - 4.0 gm /dL Remisol Chem Glucose [Mass/Vol] 87 mg/dL Normal 55 - 199 mg/dL Re misol Chem Potassium [Moles/Vol] 4.2 mmol/L Normal 3.5 - 5.3 mmol /L Remisol Chem Protein [Mass/Vol] 6.9 g/dL Normal 6.0 - 7.8 gm/dL R emisol Chem Sodium [Moles/Vol] 141 mmol/L Normal 135 - 145 mmol/L Remisol Chem Triglyceride [Mass/Vol] 65 mg/dL Normal <=149mg/dL R emisol Chem Urea nitrogen [Mass/Vol] 27 mg/dL High 5 - 21 mg/dL Remisol Chem Urea nitrogen/Creatinine [Mass ratio] 18 mg/mg Normal 10 - 20 Remisol Chem CMPon 04-20-2023 Albumin [Mass/Vol] 4.2 g/dL Normal 3.3-5.0 [facility] Comment on above: Performed By: #### 2 735075, 2797828, 229871187, 45641351, 0027093 ####[facility] [address] [place] [address] Albumin/Globulin (S) [Mass conc ratio] 1.6 Normal 1.1-2.2 [facility] Comment on above: Performed By: #### 2 943373, 4661158, 106790027, 24963223, 2994574 ####[facility] [address] [place] [address] ALP [Catalytic activity/Vol] 50 Int._Unit/L Normal 21-98 [facility] Comment on above: Performed By: #### 2 715625, 8377234, 233450163, 68826415, 3361953 ####[facility] [address] [place] [address] ALT No additional P-5'-P [Catalytic activity/Vol] 15 Int._Unit/L Normal 6-46 [facility] Comment on above: Performed By: #### 2 472752, 9392778, 815769097, 82497542, 9527850 ####[facility] [address] [place] [address] Anion gap [Moles/Vol] 9 mmol/L Normal 6-16 [facility] Comment on above: Performed By: #### 2 576089, 3259406, 956421713, 28678890, 6938560 ####[facility] [address] [place] [address] AST [Catalytic activity/Vol] 18 Int._Unit/L Normal 5-43 [facility] Comment on above: Performed By: #### 2 400818, 9075460, 358240520, 06311597, 9017862 ####[facility] [address] [place] [address] Bilirubin [Mass/Vol] 0.7 mg/dL Normal 0.0-1.1 [facility] Comment on above: Performed By: #### 2 828423, 7626110, 919915407, 79592853, 2381086 ####[facility] [address] [place] [address] Calcium [Mass/Vol] 9.1 mg/dL Normal 8.9-11.1 [facility] Comment on above: Performed By: #### 2 382347, 5315390, 224966849, 45208551, 0001257 ####[facility] [address] [place] [address] Chloride [Moles/Vol] 105 mmol/L Normal 101-111 [facility] Comment on above: Performed By: #### 2 258777, 3903910, 543222079, 95125940, 3472945 ####[facility] [address] [place] [address] CO2 [Moles/Vol] 31 mmol/L Normal 21-31 [facility] Comment on above: Performed By: #### 2 971970, 0806279, 709837234, 53994313, 3766896 ####[facility] [address] [place] [address] Creatinine [Mass/Vol] 1.5 mg/dL High 0.5-1.3 [facility] Comment on above: Performed By: #### 2 584492, 9338103, 054328608, 52489382, 4975322 ####[facility] [address] [place] [address] Globulin (S) [Mass/Vol] 2.7 g/dL Normal 1.4-4.0 [facility] Comment on above: Performed By: #### 2 226322, 9474478, 909365458, 78391765, 0632846 ####[facility] [address] [place] [address] Glucose [Mass/Vol] 87 mg/dL Normal 55-199 [facility] Comment on above: Performed By: #### 2 542526, 5815474, 137892393, 70952517, 6959380 ####[facility] [address] [place] [address] Potassium [Moles/Vol] 4.2 mmol/L Normal 3.5-5.3 [facility] Comment on above: Performed By: #### 2 594053, 9514734, 137916687, 06710207, 0362402 ####[facility] [address] [place] [address] Protein [Mass/Vol] 6.9 g/dL Normal 6.0-7.8 [facility] Comment on above: Performed By: #### 2 921761, 7719835, 587729971, 49726291, 5282384 ####[facility] [address] [place] [address] Sodium [Moles/Vol] 141 mmol/L Normal 135-145 [facility] Comment on above: Performed By: #### 2 037302, 4651291, 081604284, 44102907, 2305178 ####[facility] [facility] [address] [place] [address] Urea nitrogen [Mass/Vol] 27 mg/dL High 5-21 [facility] Comment on above: Performed By: #### 2 [id number], [id number], [id number], [id number], [id number] ####[facility] [address] [place] [address] Urea nitrogen/Creatinine [Mass ratio] 18 No Units Normal 10-20 [facility] Comment on above: Performed By: #### 2 [id number], [id number], [id number], [id number], [id number] ####[facility] [address] [place] [address] Family Medicine Office/Clini c Noteon 04-20-2023 Family [...] BS Assessment/Plan 1. 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 Normal [facility] Comment on above: Result Comment: Elec tronically Signed By: Dipesh PABLO, Gilson Jackson\.br\Date and Time Signed: 04/20/23 08:35 EDT Formson 04-20-2023 Forms [id number]#[id number] Normal [facility] HEMATOLOGYOrdered By: SYSTEM SYSTEM on [...] [#/Vol] 0.8 E9/L Normal 0.2 - 1.0 E9 /L Remisol Heme Monocytes/100 WBC (Bld) 11.2 % Normal 4.0 - 14.0 % Remisol Heme Neutrophils (Bld) [#/Vol] 3.9 E9/L Normal 2.0 - 7.5 E9/L Remisol Heme Neutrophils/100 WBC (Bld) 57.0 % Normal 36.0 - 75.0 % Remisol Heme Platelet mean volume (Bld) [Entitic vol] 9.3 fL Normal 6.4 - 10.8 fL Remisol Heme Platelets (Bld) [#/Vol] 144.0 E9/L Low 150. 0 - 500.0 E9/L Remisol Heme RBC (Bld) [#/Vol] 4.8 E12/L Normal 4.3 - 5.9 E12/L Re misol Heme WBC corrected for nucl RBC Auto (Bld) [#/Vol] 6.9 E9/L Normal 4.0 - 11.0 E9/L Remisol H gilberto Lipid Panelon 04-20-2023 Cholesterol [Mass/Vol] 74 mg/dL Low 120-200 [facility] Comment on above: Performed By: #### 2 [id number], 0369108, [id number], [id number], [id number] ####[facility] [address] [place] [address] Cholesterol in HDL [Mass/Vol] 27 mg/dL Invalid Interpretation Code [facility] Comment on above: Result Comment: '>= 60 LOW RISK' '<= 40 HIGH RISK' Performed By: #### 2 390557, [id number], [id number], [id number], [id number] ####[facility] [address] [place] [address] Cholesterol in LDL [Mass/Vol] 37 mg/dL Normal <=129 [facility] Comment on above: Performed By: #### 2 599498, 9386607, [id number], [id number], [id number] ####[facility] [address] [place] [address] Cholesterol in VLDL [Mass/Vol] 13 mg/dL Normal 7-40 [facility] Comment on above: Performed By: #### 2 496305, 2353756, [id number], [id number], 2772178 ####[facility] [address] [place] [address] Triglyceride [Mass/Vol] 65 mg/dL Normal <=149 [facility] Comment on above: Performed By: #### 2 968500, 5195991, [id number], [id number], 2902506 ####[facility] [address] [place] [address] Patient Educationon 04-20-19 24 Patient Education Nutrition BMI for Adults [...] numbers. This can be done either in [place]e (U.S[place] or metric measurements. Note that charts and online BMI calculators are available to help you find your BMI quickly and easily without having to do these calculations yourself. To calculate your BMI in [place]e ([place] measurements: 1. Measure your weight in [...] for Disease Control and Prevention: www.cdc.gov ? [place] Heart Association: www.heart.org ? National Heart, Lung, and Blood Burton: www.nhlbi.nih.gov Summary ? Body mass index (BMI) is a number that is calculated from a person's weight and height. ? BMI may help estimate how much of a person's weight is composed of fat. BMI can help identify those who may be at higher risk for certain medical problems. ? BMI can be measured using [place]alese measurements or metric measurements. ? BMI charts are used to identify whether you are underweight, normal weight, overweight, or obese. This information is not intended to replace advice given to you by your health care provider. Make sure you discuss any questions you have with your health care provider. Document Revised: 10/17/2019 Document Reviewed: 08/24/2019 [employer] Patient Education ? 2022 [employer] Pre-Visit Planningon 024 Pre-Visit Planning --- From: Tanya Mena To: Dipesh PABLO, Gilson Jackson; Sent: 04/19/2023 09:32:31 EDT Subject: Pre-Visit Planning Due Date/Time: 04/19/2023 09:32:00 EDT Caller Name: ZAIRA SEGURA III; Caller Number: H Al Dr. Salgado. During a pre-visit planning chart review, I noted the following documentation in the medical record: [facility]: Chronic kidney disease, stage 3, unspecified per Dr. Sunday Savage dated 10/13/2022. Glomerular filtration rate (GFR): [...] feel free to contact me at extension [phone]. Thank you! Tanya Mena LPN --- From: Gilson Salgado MD To: Tanya Mena; Sent: 04/20/2023 14:06:08 EDT Subject: RE: Pre-Visit Planning Caller Name: ZAIRA SEGURA III; Caller Number: H Labs ordered today Normal [address] [place] [address] Pre-Visit Planning --- From: Tanya Mena To: Gilson Salgado MD; Sent: 04/19/2023 09:22:32 EDT Subject: Pre-Visit Planning Due Date/Time: 04/19/2023 09:22:00 EDT Caller Name: ZAIRA SEGURA III; Caller Number: H Al Dr. Salgado. 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 Sunday Savage dated 10/13/2022, and Cardiomyopathy unspecified per [...] feel free to contact me at extension [phone]. Thank you! Tanya Mena LPN --- From: Gilson Salgado MD To: Tanya Mena; Sent: 04/20/2023 14:05:41 EDT Subject: RE: Pre-Visit Planning Caller Name: ZAIRA SEGURA III; Caller Number: H [facility] I missed this. Normal [address] [place] [address] Pre-Visit Planning --- From: Tanya Mena To: Gilson Salgado MD; Sent: 04/19/2023 08:48:18 EDT Subject: Pre-Visit Planning Due Date/Time: 04/19/2023 08:48:00 EDT Caller Name: ZAIRA SEGURA III; Caller Number: [facility] Dr[facility] Salgado. During a pre-visit planning chart [...] feel free to contact me at extension [phone]. Thank you! Tanya Mena LPN --- From: Dipesh PABLO, Gilson Jackson To: Tanya Mena; Sent: 04/20/2023 14:04:33 EDT Subject: RE: Pre-Visit Planning Caller Name: ZAIRA SEGURA III; Caller Number: H Digna. Its suppose to be type 2. Normal [address] [facility] eGFRon 04-20-2023 eGFR 45 mL/min/1.73 m2 Low >=59 [facility] Comment on above: Order Comment: Order added by Discern Expert. Performed By: #### 2 [id number], [id number], [id number], [id number], [id number] ####[facility] [address] [place] [address] Home Health Recordson 2022 Home Health Records [id number]#1.00TIFF Normal [facility] CHEMISTRYOrdered By: Lab ROP User on 04-26-2022 Glucose [Mass/Vol] 227 mg/dL High 55 - 99 mg/dL FTM C POC Subsection Comment on above: Result Comment: Radha tony Meter POC Device SN [id number] Invalid Interpretation Code FT POC Subsection POC User ID [id number] Invalid Interpretation Code FT POC Subsection POC Username LIAM SAWYER Invalid Interpretation Code FT POC Subsection Glucose [Mass/Vol] 152 mg/dL High 55 - 99 mg/dL FTM C POC Subsection Comment on above: Result Comment: Radha tony Meter POC Device SN [id number] Invalid Interpretation Code FT POC Subsection POC User ID [id number] Invalid Interpretation Code FT POC Subsection POC Username LIAM SAWYER Invalid Interpretation Code FT POC Subsection MICRO OTHER TESTSOrdered By: Aurora Dugan on 04-26-2022 Rapid COV Int NEG Ctl Pass (04/26/22 11:03 AM) Normal [facility] Man Sero Rapid COV Int POS Ctl Pass (04/26/22 11:03 AM) Normal [facility] Man Sero SARS-CoV+SARS-CoV-2 (COVID-19) Ag IA.rapid Ql (Resp) Not Detected (04/26/22 11:03 AM) Normal Not Detected FT Man Sero CHEMISTRYOrdered By: Lab ROP User on 04-25-2022 Glucose [Mass/Vol] 232 mg/dL High 55 - 99 mg/dL FT C POC Subsection Comment on above: Result Comment: Jane garcia RN/ POC Device SN [id number] Invalid Interpretation Code FT POC Subsection POC User ID [id number] Invalid Interpretation Code [facility] POC Subsection POC Username EFREN MONTOYA Invalid Interpretation Code [facility] POC Subsection BLOOD BANKOrdered By: Daxa Gomes on 04-24-2022 ABO/Rh Retype Interp Positive Invalid Interpretation Code [facility] BB Subsection CHEMISTRYOrdered By: SYSTEM SYSTEM on [...] result\ Critical Result I_hsTnI:138.1 Called to ASTRID CAROLINA at 3N by HEMANTH VENTURA and read [...] 1.1 E9/L High 0.2 - 1.0 E9/L FT HemeAutoSS Neutrophils/100 WBC (Bld) 70.5 % Normal 36.0 - 75.0 % FT HemeAutoSS Neutrophils/Leukocytes Auto (Bld) [Pure # fraction] 5.8 E9/L Normal 2.0 - 7.5 E9/L FT HemeAutoSS HEMATOLOGYOrdered By: Rajvi Ventura on 04-24-2022 Erythrocyte distribution width (RBC) [...] HemeAutoSS Platelets (Bld) [#/Vol] 136.0 E9/L Low 150. 0 - 500.0 E9/L FT HemeAutoSS RBC (Bld) [#/Vol] 4.5 E12/L Normal 4.3 - 5.9 E12/L FT HemeAutoSS WBC corrected for nucl RBC Auto (Bld) [#/Vol] 8.2 E9/L Normal 4.0 - 11.0 E9/L [facility] HemeAutoSS BLOOD BANKOrdered By: Rajiv Ventura on 04-23-2022 ABO/Rh Interp Positive Invalid Interpretation Code FT BB Subsection ABSC Gel Interp Negative (04/23/22 6:46 PM) Normal [facility] BB Subsection CHEMISTRYOrdered By: SYSTEM SYSTEM on [...] Remisol Ethanol [Mass/Vol] mg/dL Normal <=7mg/dL [facility] R emisol Globulin (S) [Mass/Vol] 3.5 g/dL Normal 1.4 - 4.0 gm /dL [facility] Remisol Glucose [Mass/Vol] 354 mg/dL High [...] g/dL Normal 6.0 - 7.8 gm/dL F [facility] Remisol Sodium [Moles/Vol] 138 mmol/L Normal 135 [...] 8.1 fL Normal 6.4 - 10.8 fL [facility] HemeAutoSS Platelets (Bld) [#/Vol] 151.0 E9/L Normal 150. 0 - 500.0 E9/L [facility] HemeAutoSS RBC (Bld) [#/Vol] 5.0 E12/L Normal 4.3 - 5.9 E12/L [facility] HemeAutoSS WBC corrected for nucl RBC Auto (Bld) [#/Vol] 7.1 E9/L Normal 4.0 - 11.0 E9/L [facility] HemeAutoSS ECHOCARDIO M/2D COMPLETEon 0 02-18-2022 ECHOCARDIO M/2D COMPLETE Patient: ZAIRA SEGURA Exam Date: 02/18/2022 : 1935 Gender:M Ordering : TARA CARDENAS Admission #: [id number] Family : DR DOMINGO MEDRANO . Order #: [id number] CLICK HERE TO VIEW EXAM ECHOCARDIOGRAM REPORT [...] Stuart You M.D. on 02/19/2022 at 14:03 [facility] 07-28-2021 Natriuretic peptide B (Bld) [Mass/Vol] 157.0 pg/mL Normal <=1,800.0 [facility] Comment on above: Performed By: #### B FACTORY ASSEMBLER #### [facility] [address] [address] [address] Nitish Thakur Vancomycin,Troughon 09-04-19 21 Vancomycin,Trough 16.5 ug/mL Normal 10.0-20.0 [facility] Comment on above: Result Comment: Last dose: - PERFORMED BY: [place] [address] KATE LOTT M.D. Performed By: #### V ANCT #### [address] Vital Signs Date Time Vital Sign Value Performing Clinician Ely crandall 08-16-2024 12:53-0400 Body height 185.4 cm Christopher Bohach DPM Work Phone: [facility] 08-16-2024 12:53-0400 Body mass index (BMI) [Ratio] 29.55 kg/m2 Christopher Bohach DPM Work Phone: [facility] 08-16-2024 12:53-0400 Body weight 101.61 kg Christopher Bohach DPM Work Phone: [facility] 08-16-2024 12:53-0400 Diastolic blood pressure 51 mm[Hg] Christopher Bohach DPM Work Phone: [facility] 08-16-2024 12:53-0400 Heart rate 58 /min Christopher Bohach DPM Work Phone: [facility] 08-16-2024 12:53-0400 Systolic blood pressure 101 mm[Hg] Christopher Bohach DPM Work Phone: [facility] 12-09-2023 12:52-0400 Body height 185.4 cm Christopher Bohach DPM Work Phone: [facility] 12-09-2023 12:52-0400 Body mass index (BMI) [Ratio] 29.55 kg/m2 Patrick Bohach DPM Work Phone: [facility] 12-09-2023 12:52-0400 Body weight 101.61 kg Patrick Bohach DPM Work Phone: [facility] 12-09-2023 12:52-0400 Diastolic blood pressure 50 mm[Hg] Christsharmaineer Bohach DPM Work Phone: [facility] 12-09-2023 12:52-0400 Heart rate 64 /min Moisesopher Bohach DPM Work Phone: [facility] 12-09-2023 12:52-0400 Respiratory rate 16 /min Hoer Bohach DPM Work Phone: [facility] 12-09-2023 12:52-0400 Systolic blood pressure 101 mm[Hg] Hoer Bohach DPM Work Phone: [facility] 04-26-2022 12:52-0400 Hourly Rounding Sixto RENATO [facility] 04-26-2022 12:52-0400 Promise to Return Sixto RENATO [facility] 04-26-2022 11:52-0400 Hourly Rounding Sixto RENATO [facility] 04-26-2022 11:52-0400 Promise to Return Sixto RENATO [facility] 04-26-2022 11:39-0400 gluc 227 mg/dL Sixto RENATO [facility] 04-26-2022 11:00-0400 Body temperature 98.06 [degF] Sixto RENATO [facility] 04-26-2022 11:00-0400 Heart rate 66 /min Sixto RENATO [facility] 04-26-2022 11:00-0400 SaO2% (BldA) [Mass fraction] 97 % Sixtoelvira VILCHISSLIN [facility] 04-26-2022 11:00-0400 Systolic blood pressure 164 mm[Hg] Sixto RENATO [facility] 04-26-2022 10:36-0400 Hourly Rounding Sixtoelvira VILCHISSLIN [facility] 04-26-2022 10:36-0400 Promise to Return Sixtoelvira VILCHISSLIN [facility] 04-26-2022 08:50-0400 Diastolic blood pressure 76 mm[Hg] Sixto RENATO [facility] 04-26-2022 08:50-0400 Heart rate 76 /min Sixtoelvira VILCHISSLIN [facility] 04-26-2022 08:50-0400 Systolic blood pressure 126 mm[Hg] Sixto RENATO [facility] 04-26-2022 08:00-0400 Body temperature 98.42 [degF] Sixto RENATO [facility] 04-26-2022 07:30-0400 Heart rate 69 /min Sixto RENATO [facility] 04-26-2022 07:30-0400 Mean blood pressure 93 mm[Hg] Sixto RENATO [facility] 04-26-2022 07:30-0400 Respiratory rate 16 /min Sixto RENATO [facility] 04-26-2022 05:24-0400 Body temperature 97.52 [degF] Sixto RENATO [facility] 04-26-2022 05:24-0400 Mean blood pressure 102 mm[Hg] Sixto RENATO [facility] 04-26-2022 05:24-0400 Respiratory rate 16 /min Sixto RENATO [facility] 04-26-2022 05:24-0400 SaO2% (BldA) [Mass fraction] 98 % Sixto RENATO [facility] 04-26-2022 01:00-0400 Heart rate 67 /min Sixto RENATO [facility] 04-26-2022 01:00-0400 Mean blood pressure 100 mm[Hg] Sixto RENATO [facility] 04-26-2022 01:00-0400 Respiratory rate 16 /min Sixto RENATO [facility] 04-25-2022 18:56-0400 Blood Pressure Location Sixto RENATO [facility] 04-25-2022 18:32-0400 Heart rate 80 /min Sixto RENATO [facility] 04-25-2022 16:40-0400 Heart rate 72 /min Sixto RENATO [facility] 04-25-2022 15:10-0400 Mean blood pressure 111 mm[Hg] Sixto RENATO [facility] 04-25-2022 10:56-0400 Mean blood pressure 101 mm[Hg] Sixto RENATO [facility] 04-25-2022 07:00-0400 Body temperature 97.88 [degF] Sixto RENATO [facility] 04-25-2022 00:12-0400 Mean blood pressure 100 mm[Hg] Sixto RENATO [facility] 04-25-2022 00:00-0400 Blood Pressure Location Sixto GROSS [facility] 04-25-2022 00:00-0400 Body temperature 98.24 [degF] Sixto GROSS [facility] 04-24-2022 08:08-0400 Body temperature 99.14 [degF] Sixto GROSS [facility] Encounters Encounter Date Encounter Type Care Provider Facility Start: 12-20-2024 ambulatory GIRISH BECKER Facili ty:[facility] [place] Start: 09-12-2024 End: 09-12-2024 ambulatory GIRISH BECKER Facility:[facility] Start: 08-24-2024 End: 08-24-2024 ambulatory ANGELO [facility] Start: 08-16-2024 End: 08-16-2024 Bamboo flowsheet Patrick Adkins DPM Work Phone: [facility] Start: 08-16-2024 End: 08-16-2024 Bamboo flowsheet Patrick Adkins DPM Work Phone: [facility] Start: 08-16-2024 End: 08-16-2024 Patient encounter procedure Patrick Adkins DPM Work Phone: [facility] Comment on above: Diabetic polyneuropa thy associated with type 2 diabetes mellitus (HCC) (Primary Dx); Onychomycosis; Corns and callosities Start: 08-16-2024 End: 08-16-2024 ambulatory PATRICK ADKINS Not Available Start: 08-07-2024 End: 08-07-2024 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 GIRISH BECKER [facility] Start: 06-04-2024 End: 06-04-2024 Lab Drop off Gilson Salgado [facility] Start: 06-04-2024 End: 06-04-2024 ambulatory MD Gilson Salgado Facility:[facility] Start: 04-17-2024 End: 04-17-2024 ambulatory PATRICK ADKINS Not Available Start: 03-05-2024 End: 03-05-2024 ambulatory Gil[facility] Salgado [facility] Start: 12-15-2023 End: 12-15-2023 ambulatory Gilson Salgado Facility:[facility] Start: 12-09-2023 End: 12-09-2023 Bamboo flowsheet Patrick Adkins DPM Work Phone: [facility] Start: 12-09-2023 End: 12-09-2023 Bamboo flowsheet Patrick Adkins DPM Work Phone: [facility] Start: 12-09-2023 End: 12-09-2023 Patient encounter procedure Patrick Adkins DPM Work Phone: [facility] Comment on above: Diabetic polyneuropa thy associated with type 2 diabetes mellitus ([facility]) (Primary Dx); Onychomycosis Start: 12-09-2023 End: 12-09-2023 ambulatory PATRICK ADKINS Not Available Start: 11-01-2023 End: 11-01-2023 ambulatory Gilson Salgado Facility:[facility] [place] Start: 08-02-2023 ambulatory Gilson Salgado Facility :[facility] Start: 08-02-2023 End: 08-02-2023 Lab Drop off Gilson Salgado [facility] Start: 08-02-2023 End: 08-02-2023 ambulatory Gilson Salgado Facility:[facility] [place] Start: 07-25-2023 End: 07-25-2023 ambulatory Gilson Salgado [facility] Start: 07-18-2023 End: 07-18-2023 ambulatory GIRISH BECKER Facility:[facility] [place] Start: 05-05-2023 ambulatory Gilson Salgado Facility:[facility] Start: 05-02-2023 End: 05-02-2023 ambulatory Gilson Salgado Facility:[facility] [place] Start: 04-20-2023 End: 04-20-2023 Lab Drop off Gilson Salgado [facility] Start: 04-20-2023 End: 04-20-2023 ambulatory Gilson Salgado Facility:[facility] Start: 07-07-2022 ambulatory TARA CARDENAS Facility:[facility] Start: 06-08-2022 End: 06-08-2022 Lab Drop off Gilson Salgado [facility] Start: 04-26-[address] YASEMIN ALBRIGHT Facility :[facility] Start: 04-23-2022 End: 04-26-2022 Observation Sixto GROSS [facility] Start: 04-08-2022 End: 04-08-2022 ambulatory CRICKET MADDOX Facility:[facility] Start: 03-11-2022 End: 03-11-2022 ambulatory CRICKET MADDOX Facility:[facility] Start: 02-24-2022 ambulatory TARA FREDYPAMELAAlejandro Facility:[facility] 1 Start: 02-18-2022 End: 02-19-2022 ambulatory TARA FREDYPAMELAI Facility:[facility] Start: 12-28-2021 End: 12-29-2021 ambulatory RAPHAEL Blanton [facility] Facility:[facility] Start: 10-26-2021 End: 10-27-2021 ambulatory RAPHAEL Blanton [facility] Facility:[facility] Start: 09-28-2021 End: 09-29-2021 ambulatory RAPHAEL Blanton [facility] Facility:[facility] Start: 08-21-2021 End: 08-22-2021 ambulatory RAPHAEL Blanton [facility] Facility:[facility] Start: 07-31-2021 End: 08-01-2021 ambulatory RAPHAEL Blanton [facility] Facility:[facility] Start: 07-28-2021 End: 07-29-[address] NONE LISTED REQUEST Facility: Start: 07-24-2021 End: 07-25-2021 ambulatory RAPHAEL Blanton [facility] Facility:[facility] Procedures Date Procedure Procedure Detail Performing Clinician Start: 07-21-2022 Cardiac catheter (ph ysical object) Gilson Salgado Angioplasty of blood vessel Sixto GROSS Comment on above: Rt leg 2020 Cataract (disorder) Gilson stewart Comment on above: summer 2022 Inguinal hernia (disorder) P atrique GROSS Stent, device (physi maribel object) Sixto GROSS Comment on above: Rt Leg 2020 Surgical procedure Sixto WHITE Comment on above: Rt foot for infectio n Plan of Treatment Date Care Activity Detail Author Start: 12-20-2024 End: 12-20-2024 Patient encounter procedure 12/20/2024 2:00 PM EST Procedure Visit [facility] [address] [place] [address] Patrick Adkins DPM [address] [place] [address] [facility] Start: 10-08-2024 Influenza vaccination [facility] Start: 08-16-2024 End: 08-16-2024 Patient encounter procedure 08/16/2024 1:15 PM EDT Procedure Visit [facility] [address] [place] [address] Patrick Adkins DPM [address] [place] [address] Arrived [facility] Comment on above: Arrived Start: 04-10-2024 End: 04-10-2024 Patient encounter procedure 04/10/2024 1:30 PM EST Procedure Visit [facility] [address] [place] [address] Patrick Adkins, DPM [address] [place] [address] [facility] Start: 12-09-2023 End: 12-09-2023 Patient encounter procedure 12/09/2023 1:00 PM EDT Procedure Visit [facility] [address] [place] [id number] Patrick Adkins, DPM [address] [place] [address] Arrived [facility] Comment on above: Arrived Start: 10-09-2023 Influenza vaccination Influenza Vacc ine (#1) [facility] Immunizations Immunization Date Immunization Notes Care Provider Fa cili 01-04-2022 pneumococcal 20-anne marie nt conjugate vaccine Sixto GROSS [facility] 01-04-2022 SARS-CoV-2 (COVID-19 ) mRNAMUL.[id number] Sixto GROSS [facility] 12-08-2020 SARS-CoV-2 (COVID-19 ) mRNA BNT-162b2 vax Sixto GROSS [facility] Comment on above: Result Comment: 2022: [id number] 06-04-2020 SARS-CoV-2 (COVID-19 ) mRNA BNT-162b2 vax Sixto GROSS [facility] 05-14-2020 SARS-CoV-2 (COVID-19 ) mRNA BNT-162b2 vax Sixto GROSS [facility] NEGATED: Highlighted row has not occurred!07-18-2023 influenza virus vaccine, unspecified formulation Gilson Salgado [facility] [place] Payers Date Payer Category Payer Medicare [id number] 2022 Unknown [id number] 2022 Private Health Insurance AARP mber [id number] 1957 Medicare [id number] 1959 Self-pay [id number] 1959 Unknown [id number] 1935 Unknown [id number] 2.840.1.604367.3.579.2 .593 1935 Unknown [id number] .840.1.415098.3.579.2 .593 1937 Unknown [id number] .840.1.989350.3.579.2 .593 1937 Unknown [id number] .840.1.825733.3.579.2 .593 1937 Unknown [id number] 2.16840.1.593867.3.579.2 .593 1937 Unknown [id number] 2.16.840.1.797454.3.579.2 .593 1937 Unknown [id number] 2.16840.1.123322.3.579.2 .593 1937 Unknown [id number] 2.16.840.1.050748.3.579.2 .593 1937 Unknown [id number] 2.16.840.1.185914.3.579.2 .593 1937 Unknown [id number] 2.16.840.1.657809.3.579.2 .593 1937 Unknown [id number] 2.16.840.1.648199.3.579.2 .593 1937 Unknown [id number] 2.16.840.1.776569.3.579.2 .593 1937 Unknown [id number] 2.840.1.095730.3.579.2 .593 1937 Unknown [id number] 2.840.1.274684.3.579.2 .593 1937 Unknown [id number] 2.16840.1.791778.3.579.2 .727 1937 Unknown [id number] 2.840.1.363002.3.579.2 .727 1937 Unknown [id number] 2.840.1.653261.3.579.2 .727 1937 Unknown [id number] 2.840.1.825923.3.579.2 .727 1937 Unknown [id number] 2.16840.1.872661.3.579.2 .727 1937 Unknown [id number] 2.16.840.1.570023.3.579.2 .727 1937 Unknown [id number] 2.16.840.1.659130.3.579.2 .727 1937 Unknown [id number] 2.16840.1.826092.3.579.2 .727 1937 Unknown [id number] 2.16.840.1.832457.3.579.2 .727 1937 Unknown [id number] 2.16.840.1.362081.3.579.2 .1259 1937 Unknown [id number] 2.16.840.1.564549.3.579.2 .1259 1937 Unknown [id number] 2.16.840.1.658280.3.579.2 .1259 1937 Unknown [id number] 2.16.840.1.107864.3.579.2 .727 1937 Unknown [id number] 1935 Unknown [id number] 1935 Unknown [id number] 1935 Unknown [id number] 1935 Unknown [id number] 1935 Unknown [id number] Social History Date Type Detail Facility Tobacco smoking status [facility] Start: 08-18-2023 End: 08-16-2024 Sex Assigned At Male [facility] Start: 06-08-2022 End: 11-02-2022 Tobacco smoking status Never smoked tobacco (finding) [facility] Comment on above: denies denies use. Tobacco smoking status Never [facility] Comment on above: denies denies use. Start: 11-02-2022 Tobacco use and exposure Smokeless tobacco non-user [facility] Start: 08-18-2023 End: 08-16-2024 Alcoholic beverage intake Lifetime non-drinker (finding) [facility] Start: 08-18-2023 End: 08-16-2024 History of Social function [facility] Start: 1935 Sex assigned at Not on file N [facility] Healthcare Sex Male (finding) [facility] Medical Equipment Procedure Code Equipment Code Equipment [...] 4mm x 32g E11.9, [id number], Supply, 182, cm, 11/01/23 13:55:00 EDT, Height/Length Dosing, 109, kg, 11/01/23 13:55:00 EDT, Weight Dosing Start: 11-02-2023 Functional Status Date Assessment Result Facility 04-23-2022 Functional Status N/A [facility] 04-23-2022 Functional Status [facility] Clinical Notes 03-11-2022 to 09-12-2024 Patrick Adkins, AARON - 08/16/2024 1:15 PM EDTChshadi Adkins, AARON - 12/09/2023 1:00 PM EDT Note Date & Type Note Facility 09-12-2024 Note Patient Education Endocrinology Diabetes Mellitus and Foot Care Diabetes, also called diabetes mellitus, may cause problems with your feet and legs because of poor blood flow (circulation). Poor circulation may make your skin: ??? Become thinner and package drier. ??? Break more easily. ??? Heal more slowly. ??? Peel and crack. You may also have nerve damage (neuropathy). This can cause decreased feeling in your legs and feet. This means that you may not notice minor injuries to your feet that could lead to more serious problems. Finding and treating problems early is the best way to prevent future foot problems. How to care for your feet Foot hygiene ??? Wash your feet daily with warm water and mild soap. Do not use hot water. Then, pat your feet and the areas between your toes until they are fully dry. Do not soak your feet. This can dry your skin. ??? Trim your toenails straight across. Do not dig under them or around the cuticle. File the edges of your nails with an emery board or nail file. ??? Apply a moisturizing lotion or petroleum jelly to the skin on your feet and to dry, brittle toenails. Use lotion that does not contain alcohol and is unscented. Do not apply lotion between your toes. Shoes and socks ??? Wear clean socks or stockings every day. Make sure they are not too tight. Do not wear knee-high stockings. These may decrease blood flow to your legs. ??? Wear shoes that fit well and have enough cushioning. Always look in your shoes before you put them on to be sure there are no objects inside. ??? To break in new shoes, wear them for just a few hours a day. This prevents injuries on your feet. Wounds, scrapes, corns, and calluses ??? Check your feet daily for blisters, cuts, bruises, sores, and redness. If you cannot see the bottom of your feet, use a mirror or ask someone for help. ??? Do not cut off corns or calluses or try to remove them with medicine. ??? If you find a minor scrape, cut, or break in the skin on your feet, keep it and the skin around it clean and dry. You may clean these areas with mild soap and water. Do not clean the area with peroxide, alcohol, or iodine. ??? If you have a wound, scrape, corn, or callus on your foot, look at it several times a day to make sure it is healing and not infected. Check for: ? Redness, swelling, or pain. ? Fluid or blood. ? Warmth. ? Pus or a bad smell. General tips ??? Do not cross your legs. This may decrease blood flow to your feet. ??? Do not use heating pads or hot water bottles on your feet. They may burn your skin. If you have lost feeling in your feet or legs, you may not know this is happening until it is too late. ??? Protect your feet from hot and cold by wearing shoes, such as at the beach or on hot pavement. ??? Schedule a complete foot exam at least once a year or more often if you have foot problems. Report any cuts, sores, or bruises to your health care provider right away. Where to find more information ??? [place] Diabetes Association: diabetes.org ??? Association of Diabetes Care & Education Specialists: diabeteseducator.org Contact a health care provider if: ??? You have a condition that increases your risk of infection, and you have any cuts, sores, or bruises on your feet. ??? You have an injury that is not healing. ??? You have redness on your legs or feet. ??? You feel burning or tingling in your legs or feet. ??? You have pain or cramps in your legs and feet. ??? Your legs or feet are numb. ??? Your feet always feel cold. ??? You have pain around any toenails. Get help right away if: ??? You have a wound, scrape, corn, or callus on your foot and: ? You have signs of infection. ? You have a fever. ? You have a red line going up your leg. This information is not intended to replace advice given to you by your health care provider. Make sure you discuss any questions you have with your health care provider. Document Revised: 07/28/2022 Document Reviewed: 07/28/2022 [employer]ystems Patient Education ? 2023 [employer]. [facility] 08-24-2024 Note SUBJECTIVE Reason for Visit: Zaira Segura III is a 89 y.o. year old male patient being seen for follow-up visit, medication discussion. HPI: Zaira Segura III is a 89 y.o. year old male with significant medical history of A-fib/flutter, CAD (PCI x2 2022, severe triple-vessel disease and refused CABG), HFrEF (EF 40% 07/2022 TTE), hypertension, DM, and hyperlipidemia. 08/24/2024 office visit: Patient was seen and evaluated in the office today for his annual follow-up visit. He reports exertional chest pain occurring after approximately 15 minutes of biking, whereas last year he was able to ride for 45 minutes before symptoms began. 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 He denies lightheadedness, dizziness, or palpitations. He reports increased fatigue since his metoprolol dose was increased, but notes improvement in [...] well-developed, appears stated age. Level of Distress: Angry. Neck: Jugular Veins: normal jugular venous pressure. Lungs: Auscultation: no rales or rhonchi and normal breath sounds. Cardiovascular: Rate And Rhythm: regular Heart Sounds: normal S1 and s2; Systolic Murmur: not heard. Diastolic Murmur: not heard. Extremities: +2 LE edema Peripheral Pulses: Pulses: full and equal in [...] or chew. losartan (COZAAR) 25 mg, oral, Daily metoprolol tartrate (LOPRESSOR) 100 mg, oral, 2 times daily Recent Labs: No visits with results within 2 Month(s) from this visit. Latest known visit with results is: No results displayed because visit has over 200 results. I have personally reviewed and anaylzed the following laboratory results above. These findings have been analyzed in the context of the patient's clinical presentation. Cardiovascular Diagnostic Studies: 10/18/22 Coronary Angiogram: Left main: very short [...] 50% stenosis the mid circumflex has a focal 70% stenosis which was treated with PCI and [...] due to history of afib. In this s (more content not included)... [facility] 08-16-2024 History of Present illness Narrative Zaira [...] 5mm. 2Long, Thick, Crumbly, Deformed, Discolored, Brittle, Yaeqedoxeq7rj. 3Long, Thick, Crumbly, Discolored,Dystrophic 3mm 4Long, Thick, . 5Long, Thick, Crumbly, Deformed, Discolored, Brittle, Awdpptcqen3gp. Nail Pathology: Right Foot: 1 (great toe)Long, Thick, Crumbly, Deformed, Discolored, Brittle, Dystrophic 5mm. 2Long, Thick, Crumbly, Deformed, Discolored, Brittle, Omzfaigpzk6tg. 3Long, Thick, Crumbly, Deformed, Discolored, Brittle, Yircedsshp5rv 4Long, Thick, Crumbly, Deformed, Discolored, Brittle, Dystrophic, 4mm 5Long, Thick, Crumbly, Deformed, Discolored, Brittle, Pcrgaoncav7vu. Orthopedic: DEFORMITIES: Bilateral digital deformities. MUSCLE STRENGTH [...] a #15 blade documented in this encounter [facility] 08-07-2024 Note Patient Education Endocrinology Hyperglycemia [...] instructions at home: General instructions ??? Take eshw-ica-wqayaml and prescription medicines only as told by [...] have diabetes. Where to find more information [place] Diabetes Association: www.diabetes.org Contact a doctor if: [...] high even when (more content not included)... [facility] 12-15-2023 Note Patient Education Chronic Kidney [...] these instructions at home: Medicines ??? Take eaih-xov-tvapuyt and prescription medicines only as told by [...] visits. Where to find more information ??? [place] Association of Kidney Patients: www.aakp.org ??? National Kidney Foundation: www.kidney.org ??? [place] Kidney Fund: www.akfinc.org ??? Life Options: www.lifeoptions.org [...] health care p (more content not included)... [facility] 12-09-2023 History of Present illness Narrative [...] day, # 15 mL, Refills(s) 0, Pharmacy: [id number], 182, cm, 06/08/22 13:43:00 EDT, Height/Length Dosing, [...] 5mm. 2Long, Thick, Crumbly, Deformed, Discolored, Brittle, Aqtmqskuby7rp. 3Long, Thick, Crumbly, Discolored,Dystrophic 3mm 4Long, Thick, . 5Long, Thick, Crumbly, Deformed, Discolored, Brittle, Adevuezjry3hx. Nail Pathology: Right Foot: 1 (great toe)Long, Thick, Crumbly, Deformed, Discolored, Brittle, Dystrophic 5mm. 2Long, Thick, Crumbly, Deformed, Discolored, Brittle, Snnqtsgpyy2fy. 3Long, Thick, Crumbly, Deformed, Discolored, Brittle, Tcugxckclj5of 4Long, Thick, Crumbly, Deformed, Discolored, Brittle, Dystrophic, 4mm 5Long, Thick, Crumbly, Deformed, Discolored, Brittle, Njjlfgidbp6xd. Orthopedic: DEFORMITIES: Bilateral digital deformities. MUSCLE STRENGTH [...] compliance with meds documented in this encounter [facility] 11-01-2023 Note Patient Education Cardiovascular Hypertension, [...] wine (148 mL), (more content not included)... [facility] 04-26-2022 Evaluation + Plan note Extrac monty from: Title:Discharge Note Author:KEN PABLO, Camilo Sweet te:04/26/22 Discharge To, Anticipated II - Senior Living Unit Discharged to - Home independently Transported [...] Bedtime BD MAIDA 2 GEN PEN NDL [id number] BD UF MAIDA PEN NEEDLE [id number] [facility]S ZINC 50 MG TABLET Eliquis 5 mg oral tablet, Still taking, not as prescribed: tAKES 2 TABLETS TWICE DAILY Handicap Akash, See Instructions HumaLOG KwikPen 100 units/mL injectable solution ketorolac Opth 0.5% Catherine Lantus Solostar Pen 100 units/mL subcutaneous solution Lopressor 25 mg oral tablet magnesium oxide 400 mg Tab ofloxacin Opth 0.3% Catherine Potassium Chloride (Snx-Ninf-Krg 10) 10 mEq oral tablet, extended release With When Contact Information Follow-up with your eye surgery Dr. Within 7 to 10 days Additional Instructions: Call for followup appointment Call physician if symptoms worsen DOMINGO MEDRANO Within 7 to [address] [place] [address] [facility] (1) Additional Instructions: Call for followup [...] Constantin e:04/25/22 Discharge To, Anticipated II - Senior Living Unit Discharged to - Home independently Transported [...] Bedtime BD MAIDA 2 GEN PEN NDL [id number] BD UF MAIDA PEN NEEDLE [id number] [facility]S ZINC 50 MG TABLET Eliquis 5 mg oral tablet, Still taking, not as prescribed: tAKES 2 TABLETS TWICE DAILY Handicap Akash, See Instructions HumaLOG KwikPen 100 units/mL injectable solution ketorolac Opth 0.5% Catherine Lantus Solostar Pen 100 units/mL subcutaneous solution Lopressor 25 mg oral tablet magnesium oxide 400 mg Tab ofloxacin Opth 0.3% Catherine Potassium Chloride (Jbs-Bdbu-Oyx 10) 10 mEq oral tablet, extended release With When Contact Information Follow-up with your eye surgery DrZara Within 7 to 10 days Additional Instructions: Call for followup appointment Call physician if symptoms worsen DOMINGO MEDRANO Within 7 to [address] [place] [address] [facility] (1) Additional Instructions: Call for followup [...] Bedtime BD MAIDA 2 GEN PEN NDL [id number] BD UF MAIDA PEN NEEDLE [id number] [facility] ZINC 50 MG TABLET Eliquis 5 mg oral tablet, Still taking, not as prescribed: tAKES 2 TABLETS TWICE DAILY Handicap Placard, See Instructions HumaLOG KwikPen 100 units/mL injectable solution ketorolac Opth 0.5% Catherine Lantus Solostar Pen 100 units/mL subcutaneous solution Lopressor 25 mg oral tablet magnesium oxide 400 mg Tab ofloxacin Opth 0.3% Catherine Potassium Chloride (Voy-Anjp-Sjp 10) 10 mEq oral tablet, extended release With When Contact Information Follow-up with your eye surgery Dr. Within 7 to 10 days Additional Instructions: Call for followup appointment Call physician if symptoms worsen DOMINGO MEDRANO Within 7 to 10 days [facility] [address] [place] [id number] Business (1) Additional Instructions: Call for followup [...] rhythm. Patient may follow-up with his primary dye colorist dyer as an outpatient. Thank you very much [...] had extensive cellulitis and was hospitalized in [place]. He states after that hospitalization he had [...] states he was under the impression his dye colorist dyer wanted him on 10 mg twice daily [...] be anticipated to require 1 midnight stay [facility]03-18-2023 Hospital Discharge instructions Patient Education [...] Use night-lights. Place frequently used items in piii-ls-hpzvg places. Lower the shelves around your home [...] of the way. Do not use floor albanian or wax that makes floors slippery. If [...] include working with a physical therapist or animal trainer supervisor to improve your strength, balance, and endurance. Where to find more information Centers for Disease Control and PreventionSHEREEN: https://www.cdc.gov National [place] on Aging: https://lw7tido.gumaro.nih.gov Contact a health care provider if: You [...] 01/14/2003 Document Revised: 01/06/2018 Document Reviewed: 09/08/2017 coresystems Patient Education 2020 [employer]. Follow Up Care 04/23/2022 18:13:42 With:Follow-up with your eye surgery DrZara Address:Unknown When:7 to 10 days Comments:Call for followup appointmentCall physician if symptoms worsen With:DOMINGO MEDRANO Address: [address] [place] [address] [facility] (1) When:7 to 10 days Comments:Call for followup appointmentCall physician if symptoms worsen [facility]03-02-2023 NoteOPERATIVE NOTE OPERATION DATE: 04/08/2022 SURGEON: Cricket Maddox D.O. PREOPERATIVE DIAGNOSIS: Nuclear sclerotic cataract right [...] ensuring mobility, phacoemulsification was performed in a yqptabf-smh-aekwok-type fashion. After all nuclear material had been [...] up the following day for postoperative care.[facility] [id number] NotePREOPERATIVE HISTORY AND PHYSICAL Date:04/07/2022 HISTORY: Patient [...] and go forward with his elective procedure.[facility] [id number] NoteOPERATIVE NOTE OPERATION DATE: 03/11/2022 SURGEON: Cricket Maddox D.O. PREOPERATIVE DIAGNOSIS: Nuclear sclerotic cataract left [...] ensuring mobility, phacoemulsification was performed in a yqhzvcj-akm-xpdyyr-type fashion. After all nuclear material had been [...] up the following day for postoperative care.[facility] [id number] NoteHISTORY AND PHYSICAL EXAMINATION Date:03/10/2022 HISTORY: The [...] and go forward with his elective procedure.[facility] note Future Appointments Appointment Date:06/25/2022 10:00:00 AM Scheduled Provider: Location:[facility] Appointment Type: Nurse Visit Future Scheduled Tests Laboratory* HgbA1c 06/08/22 * Microalbumin Level Urine 06/08/22 * CBC w/ Auto Diff 06/08/22 * Comprehensive Metabolic Panel 06/08/22 * Lipid Panel 06/08/22 [facility] Future Appointments Appointment Date:06/02/2023 09:15:00 AM Scheduled Provider:Gilson Salgado MD Location:[facility] Appointment Type: Open Appointment Date:11/22/2023 01:00:00 PM Scheduled Provider: Location:[facility] Appointment Type:FM Medicare Wellness Subsequent Diagnostic Tests Pending * HgbA1c 04/20/23 * Microalbumin Level Urine 04/20/23 * U Protein/Creat Ratio 04/20/23 [facility] Future Appointments Appointment Date:11/01/2023 02:00:00 PM Scheduled Provider:Gilson Salgado MD Location:[facility] Appointment Type: Open Appointment Date:11/22/2023 01:00:00 PM Scheduled Provider: Location:[facility] Appointment Type:FM Medicare Wellness [facility] Future Appointments Appointment Date:08/07/2024 02:00:00 PM Scheduled Provider:Gilson Salgado MD Location:[facility] Appointment Type: Open Appointment Date:12/20/2024 02:30:00 PM Scheduled Provider: Location:[facility] Appointment Type:FM Medicare Wellness Subsequent [facility] evaluation note* Diagnosis Diabetic polyneuropathy associated with type 2 diabetes mellitus (CMS/HCC)- Primary Onychomycosis Dermatophytosis of nail [facility] Diagnosis Diabetic polyneuropathy associated with type 2 diabetes mellitus (HCC)- Primary Onychomycosis Dermatophytosis of nail Corns and callosities [facility] Narrative No data available for this section [facility] No data available for this section [facility] No data available for this section [facility] Summary Purpose Family History No [...] DATE CREATED AUTHOR 10/24/2020 [facility] DATE CREATED AUTHOR AUTHOR'S ORGANIZ ATION 07/18/2022 [facility] DATE CREATED AUTHOR AUTHOR'S ORGANIZ ATION 08/04/2023 [facility] DATE CREATED AUTHOR AUTHOR'S ORGANIZ ATION 12/20/2023 [facility] DATE CREATED AUTHOR AUTHOR'S ORGANIZ ATION 06/05/2024 [place] [facility] DATE CREATED AUTHOR AUTHOR'S ORGANIZ ATION 08/20/2024 [facility] Specialists [facility] DATE CREATED AUTHOR AUTHOR'S ORGANIZ ATION 09/22/2024 [place] [facility] DATE CREATED AUTHOR AUTHOR'S ORGANIZ ATION 09/24/2024 [facility] DATE CREATED AUTHOR AUTHOR'S ORGANIZ ATION 10/02/2024 [place] [facility] Patient Care team informatio n (unrecognized section and content) Bus Monitor Relationship Specialty Start Date End Date Gilson Salgado MD [address] [place] [address] PCP - General Family Medicine 12/09/23 Bus Monitor Relationship Specialty Start Date End Date Gilson Salgado MD [address] [place] [address] PCP - General Family Medicine 12/09/23 Bus Monitor Relationship Specialty Start Date End Date Gilson Salgado MD [address] [place] [address] PCP - General Family Medicine 12/09/23 Bus Monitor Relationship Specialty Start Date End Date Gilson Salgado MD [address] [place] [address] PCP - General Family Medicine 12/09/23 Reason [...] BE BASED ON THE PRIMARY CLINICAL RECORDS. [employer] provides no warranty or guarantee of the accuracy or completeness of information in this document.
[2024-11-19 14:31] LABS: Anion Gap 11.7; Blood Urea Nitrogen 31.0 mg/dL (7.0-18.0); Calcium 8.5 mg/dL (8.5-10.1); Carbon Dioxide 29.1 mmol/L (21.0-32.0); Chloride 106 mmol/L (98-107); Estimated GFR (African America 53 (>=60 mL/min/1.73m^2); Estimated GFR (Non-African Ame 44 (>=60 mL/min/1.73m^2); Glucose 218 mg/dL (74-106); Potassium 3.8 mmol/L (3.5-5.1); Sodium 143 mmol/L (136-145)
[2024-11-19 14:34] LABS: Hematocrit 39.0 % (42.0-54.0); Hemoglobin 13.2 g/dL (14.0-18.0); Immature Granulocytes Abs Auto 0.03 10^3/uL (0.00-0.03); Immature Granulocytes Pct Auto 0.5 % (0.0-0.5); Lymphocytes Absolute Auto 1.6 10^3/uL (1.2-3.8); Mean Corpuscular HGB Conc 33.8 g/dL (29.9-35.2); Mean Corpuscular Hemoglobin 30.4 pg (25.9-34.0); Mean Corpuscular Volume 89.9 fL (80.0-94.0); Platelet Count 137 10^3/uL (150-450); Red Blood Count 4.34 10^6/uL (4.70-6.10); White Blood Count 6.6 10^3/uL (4.0-11.0)
== END 2024-11-19 14:04 | disposition home or self-care (01) ==
LOC: LAB 14:05
PROVIDERS: PCP Nurse Practitioner Family
DX: I50.22 Chronic systolic (congestive) heart failure (principal)
CPT/HCPCS: 36415; 80048; 85025

== ENCOUNTER 2024-11-27 11:46 | Outpatient (OUT) | payer MEDICARE, SELFPAY ==
--- OUTSIDE RECORDS SUMMARY | 2024-11-19 13:20 | XMS_ITS | Encounter Summary ---
Author Organization [facility] Address [address] [place] [address] Care Team Providers Care Gas Mask Inspector Name Role Phone Sophia Rodriguez ROOFING TILE SORTER-Raymon Primary Care Provider [phone] Reason for Visit * ReasonCommentsFollow-upPatient is here today for a 3 month follow up. Patient had an Echo in August and labs. Patient stateshe is not feeling so well, patient state since they doubled his isosorbide he has not been feeling good. Its causing him to sleep a lot and he is still having chest pain.Atrial Flutter Coronary Artery DiseaseAtrial FibrillationHyperlipidemiaHypertension CardiomyopathyFatiguePatient feels the fatigue is due to the isosorbide.Chest PainAt night after he eats. Patient states he feels like the arteris are pressing up on his stomach causing the chest pain. 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; Typical atrial flutter (CMS/HCC); Benign hypertensive heart disease with heart failure (CMS/HCC); Mixed hyperlipidemia; Paroxysmal atrial fibrillation (CMS/HCC); Type 2 diabetes mellitus with other specified complication, unspecified whether assistant terminal manager insulin use (CMS/HCC); Ischemic cardiomyopathy; Coronary artery disease involving pokagon coronary artery of pokagon heart with other form of angina pectoris Social History Tobacco UseTypesPacks/DayYears UsedDateSmoking Tobacco: NeverSmokeless Tobacco: NeverAlcohol UseStandard Drinks/WeekCommentsNot Currently0 (1 standard drink = 0.6 oz pure alcohol)Humiliation, Afraid, Rape, and Kick questionnaireAnswerDate RecordedWithin the last year, have you been afraid of your partner or ex-partner?No10/13/2022Emotionally AbusedNot on file10/13/2022hysically Abused Not on file10/13/2022Sexually AbusedNot on file10/13/2022Overall Financial Resource Strain (CARDIA)AnswerDate RecordedHow hard is it for you to pay for the very basics like food, housing, medical care, and heating?Not hard at all 10/13/2022UT Safety & EnvironmentAnswerDate RecordedWithin the last year, have you been afraid of your partner or ex-partner?No10/13/2022Emotionally AbusedNot on file10/13/2022hysically AbusedNot on file10/13/2022Sexually AbusedNot on file10/13/2022hysically or Sexually AbusedNot on file10/13/2022Transportation AnswerDate RecordedIn the past 12 months, has lack of transportation kept you from medical appointments or from getting medications?No10/13/2022Lack of Transportation (Non-Medical)Not on file10/13/2022Housing Stability Vital Sign AnswerDate RecordedUnable to Pay for Housing in the Last YearNot on file 10/13/2022Number of Places Lived in the Last YearNot on file10/13/2022In the last 12 months, was there a time when you did not have a steady place to sleep or slept in ashelter (including now)?No10/13/2022Hunger Vital SignAnswerDate RecordedWithin the past 12 months, you worried that your food would run out before you got the money to buymore.Never true10/13/2022Ran Out of Food in the Last YearNot on file10/13/2022Sex and Gender InformationValueDate RecordedSex Assigned at EqqyiEyem96/14/2023 9:36 AM EDTLegal FaaIxqk0108/06/2021 12:38 AM EDT Gender KrhrbjoiUjzx30/14/2023 9:36 AM EDTSexual OrientationHeterosexual or Hmfjkrea72/14/2023 9:36 AM EDTdocumented as of this encounter Last Filed Vital Signs Vital SignReadingTime TakenCommentsBlood Vqcsmplv61/ 1:16 PM EDT Iworb787111/19/2024 1:16 PM EDTTemperature--Respiratory Rate--Oxygen Igkxfuetrd80% 11/19/2024 1:16 PM EDTInhaled Oxygen Concentration--Lrcoua681 kg (241 lb) 11/19/2024 1:16 PM JUMAerzgt964.4 cm (6' 1 )11/19/2024 1:16 PM EDTBody Mass Index31.810 1:16 PM EDTdocumented in this encounter Functional Status * BPAnswerDate of SpsxsydcltYvciwv46/ 1:16 PM Obdulia Nichole MA * PulseAnswerDate of IzcupimnmqNephhl1598/13/2025 1:16 PM Obdulia Nichole MA * Patient PositionAnswerDate of ZmdxynriqkAcjbeoGqxhcws68/13/2025 1:16 PM EDT Obdulia Mo MA * BPAnswerDate of KntojlitztRgicgv46/5211/19/2024 1:16 PM Obdulia Nichole MA * PulseAnswerDate of PihqcxqcszGttuwq8085/13/2025 1:16 PM Obdulia Nichole MA * BnJ8TpjfzaUgmq of ZycwgoqeigKtcavq6785/13/2025 1:16 PM Obdulia Nichole MA * BP LocationAnswerDate of AssessmentAuthorLeft arm11/19/2024 1:16 PM EDT Obdulia Mo MA * Patient PositionAnswerDate of RnowljejxhVclwitXhaiohx72/13/2025 1:16 PM EDT Obdulia Mo MA documented as of this encounter Progress Notes * Angelo Reid CNP - 11/19/2024 1:20 PM EDT Images from the original note were not included. SUBJECTIVE Reason for Visit: Zaira Singleton III is a 89 y.o. year old male patient being seen for 3-month follow-up visit. HPI: Zaira Singleton III is a 89 y.o. year old male with significant medical history of A-fib/flutter, CAD (PCI x2 2022, severe triple-vessel disease and refused CABG), HFrEF (EF 40% 07/2022 TTE), hypertension, DM, and hyperlipidemia. 11/19/2024 office visit: Patient seen and evaluated in the office today. He reports stable chest pain. Reports his lower extremity edema is slightly better. He reports taking 20 mg Lasix every other day. Endorses intermittent postural dizziness. Denies presyncope or syncopal episodes blood pressures noted to be low during visit - SBP 90s. Otherwise, denies SOB, palpitations. 08/24/2024 office visit: Patient was seen and evaluated in the office today for his annual follow-up visit. He reports exertional chest pain occurring after approximately 15 minutes of biking, whereas last year he was able to ride for 45 minutes before symptoms began. 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 He denies lightheadedness, dizziness, or palpitations. He reports increased fatigue since hismetoprolol dose was increased, but notes improvement in lower extremity edema over the past few weeks. 09/20/2023 for office visit (Dr. Saldana): Patient's was seen by Marlyn Gu in June after his beta-farzad dosage was increased due to PACs. He denied chest pain shortness of breath or syncope or any bleeding issues with Eliquis. He has someissues with hypoglycemia and there was a discussion about stopping Farxiga Medical History[1] Surgical History[2] Problem List[3] family history includes Heart failure in his sister; coronary artery bypass graft in his father. Social History[4] OBJECTIVE Visit Vitals Smoking Status Never Physical Exam Constitutional: General Appearance: well-developed, appears stated age. Level of Distress: no acute distress. Neck: Jugular Veins: normal jugular venous pressure. Lungs: Auscultation: no rales or rhonchi and normal breath sounds. Cardiovascular: Rate And Rhythm: regular Heart Sounds: normal S1 and s2; Systolic Murmur: not heard. Diastolic Murmur: not heard. Extremities: +2 LE edema. Peripheral Pulses: Pulses: full and equal in all extremities except if noted. Abdomen: Inspection and Palpation: non distended or tender and soft. Musculoskeletal: Inspection: no joint tenderness or swelling. Neurologic: Gait: normal gait. Psychiatric: Mental Status: alert and normal affect. Skin: Inspection and Palpation: warm and dry. Allergies: Allergies[5] Outpatient Medications: Current Outpatient Medications Medication Instructions apixaban (ELIQUIS) 5 mg, oral, 2 times daily RT atorvastatin (LIPITOR) 20 mg, oral, Nightly dapagliflozin propanediol (FARXIGA) 5 mg, oral, Once Daily furosemide (Lasix) 20 mg tablet TAKE 1 TAB BY MOUTH IF NEEDED EACH DAY FOR WEIGHT GAIN OF 2-3 LBS IN A DAY OR 5 LBS IN A WEEK,LEG SWELLING,INCREASED SHORTNESS OF BREATH insulin glargine (Lantus) 100 unit/mL (3 mL) pen INJECT 28 UNITS TWICE DAILY, MAY BE ADJUSTED UP TO30 UNITS insulin lispro (HumaLOG) 100 unit/mL injection PLEASE SEE ATTACHED FOR DETAILED DIRECTIONS isosorbide mononitrate ER (IMDUR) 60 mg, oral, Daily, Do not crush or chew. losartan (COZAAR) 25 mg, oral, Once Daily metoprolol tartrate (LOPRESSOR) 100 mg, oral, 2 times daily metoprolol tartrate (LOPRESSOR) 50 mg, oral, 2 times daily Recent Labs: No visits with results within 2 Month(s) from this visit. Latest known visit with results is: No results displayed because visit has over 200 results. I have personally reviewed and anaylzed the following laboratory results above. These findings havebeen analyzed in the context of the patient's clinical presentation. Cardiovascular Diagnostic Studies: TTE 09/05/2024: 10/18/22 Coronary Angiogram: Left main: very short left main which immediately bifurcates into the LAD and left circumflex coronary arteries. The left main is patent LAD: the ostial LAD has 95% calcified stenosis. The proximal LAD has diffuse calcified stenosis. The mid LAD has a region of 70% stenosis as well. After stent procedure there is 0% residual stenosis and normal PURNIMA-3 flow throughout the LAD and its branches LCX: large dominant vessel. The proximal circumflex has 50% stenosis the mid circumflex has a focal70% stenosis which was treated with PCI and has 0% residual stenosis. The OM1 and OM 2 both have 70% stenosis but are relatively small to moderate caliber and medical therapy is recommended. The distal LCX and the left PDA are widely patent. RCA: the RCA was not injected on the current study. Please see the prior report from July 2022. There was an non-dominant right coronary artery with severe disease. Medical therapy is recommended since there was a small and non-dominant vessel. Final Impression: 1) 95% prox LAD calcified stenosis successful PCI with Synergy 2.5 x 48 mm SUMEET, post-dilated with NC Emerge 3.0 mm balloon. Shockwave IVL used for vessel prep due to severe calcification. 2) 70% mid LCX stenosis s/p PCI with a Synergy 2.75 x 16 mm SUMEET. Plan: 1) optimal med therapy for CAD s/p PCI and systolic CHF 2) He in on Eliquis due to history of afib. In this setting, we will use aspirin for 2-4 weeks, then stop aspirin. Plavix will be used long-term together with eliquis for PCI and afib. 3) high intensity statin therapy 4) medical therapy for HFrEF and HTN as appropriate 5) referral to cardiac rehabilitation 07/21/2022 heart cath: Final Impression: 1) severe triple vessel CAD [...] therapy. 7) close outpatient follow up with [facility]. Re-address revascularization decision in the outpatient setting. If he agrees to pursue PCI, then I will perform PCI LAD with atherectomy and IVUS via femoral access. If PCI is chosen, then the LAD disease is the worst and I will focus on the proximal and mid LAD PCI. The other areas can be treated with medical management or mid LCX PCI could alsobe considered. 8) Case discussed with CT surgery to determine if he is a CABG candidate. After further discussion with the patient, he was not interested in CABG related to debilitation and advanced age. 9) check labs in outpatient setting including CBC, CMP, lipids, and BNP 10) check echo 07/2022 TTE Findings Left Ventricle: The left ventricle is normal size. Global left ventricular systolic function is moderately reduced.EF evaluated by EF (biplane method of disks). The calculated Biplane EF is 40 %. Left ventricular wall thickness is normal. Regional wall motion abnormalities (see diagram). Grade 1, mild diastolic dysfunction (abnormal relaxation). Left Ventricular Measurements LV Mass, 2D [place]: 238 g. LV Mass Index, 2D [place]: 103.9 g/m??. Right Ventricle: The right ventricle is poorly seen. Right ventricular systolic function appears preserved. Unable to assess right sided pressures due to lack of measurable tricuspid regurgitation. Left Atrium: The left atrium is normal in size. Right Atrium: The right atrium is normal in size. Mitral Valve: The mitral valve is normal in mobility and thickness. Trivial mitral regurgitation. Aortic Valve: Focal aortic cusp thickening is noted. No aortic valve regurgitation. Tricuspid Valve: Normal tricuspid valve. No tricuspid regurgitation. Pulmonic Valve: Pulmonary valve appears normal. No pulmonary regurgitation. Aorta: The aortic root exhibits normal size. The ascending aorta measures 3.40 cm. Ascending aorta is normal in size. Great Vessels: IVC: The IVC is normal in size. Pericardium: Patient: ZAIRA SINGLETON III Study Date: 07/21/2022 03:04 PM Page 3 of 3 CC208 No pericardial effusion. TTE 10/02/2020: 1. Normal ventricular systolic function 2. Mild diastolic dysfunction 3. Normal right-sided pressures 4. No significant valvular dysfunction 12 Lead ECG: No results found for this or any previous visit (from the past 4464 hours). I have personally reviewed and analyzed all available cardiac diagnostic tests and imaging reports.Findings have been analyzed in the context of the patient's clinical status. Assessment and Plan #CAD Reports chest pain on exertion after riding his bike for about 15 minutes. He reports states last year he was able to ride about 45 minutes before chest pain. 10/18/2022: 95% prox LAD calcified stenosis successful PCI, 70% mid LCX stenosis s/p PCI 07/21/2022: Severe triple-vessel disease and was recommended CABG but patient refused - underwent PCI. The OM1 and OM 2 both have 70% stenosis but are relatively small to moderate caliber and medical therapy is recommended. The distal LCX and the left PDA are widely patent. Plavix stopped per Dr. Saldana; DOAC alone continued. Could consider neurology next visit patient does not want to start any medication at this point. GDMT: - On Imdur 60 mg daily (increased prior visit 08/24/2024 due to ongoing chest pain) ---> will decrease to 30 mg daily due increase in fatigue and systolic blood pressure of 90 today. States the 60 mg dose made no difference denies chest pain - Continue losartan 25 mg daily - Continue metoprolol tartrate 50 mg twice daily (this was reduced prior visit 08/24/2024 per patient request due to persistent fatigue) - Continue atorvastatin 20 mg #HFrEF #Ischemic cardiomyopathy NYHA II-III Euvolemic Compensated Weight today is 241 lbs TTE 09/05/2024: EF 40%, mild aortic regurgitation, moderate concentric hypertrophy. Most recent TTE 07/2022 EF 40% Did not tolerate SGLT2 inhibitor (?) per prior clinician notes patient had requested medication to be stopped. Patient states he had side effects from drug. Labs 08/24/2024: Sodium 142, potassium 4.0, glucose 145, creatinine 1.34, eGFR 50, calcium 9.0, albumin 3.5 Labs 06/04/2024: Sodium 140, potassium 3.7, creatinine 1.4, EGFR 49, albumin 4.0, hemoglobin A1c 8.2% Labs 06/23/2023: Sodium 143, potassium 3.8, BUN 26, creatinine 1.36, EGFR 50, proBNP 1319 GDMT: - Continue losartan 25 mg daily - Reports taking 20 mg lasix every other day - Continue metoprolol tartrate 50 mg twice daily (this was reduced prior visit 08/24/2024 per patient request due to persistent fatigue) #Typical A-flutter [id number] = 7 (age, HF, HTN, DE, DM) Manual palpation of pulses today regular. - Continue apixaban 5 mg twice daily - Continue metoprolol tartrate 50 mg twice daily (this was reduced prior visit 08/24/2024 per patient request due to persistent fatigue) #Hypertension Blood pressure today is 91/52, HR 61 Low + increase in fatigue, postural dizziness ----> no presyncope or syncopal episodes - Continue losartan 25 mg daily - Will decrease Imdur dose to 30 mg daily from 60 mg #Hyperlipidemia Lipid panel 08/24/2024: LDL 33, HDL 32, triglycerides 71, total cholesterol 79 Lipid panel 04/20/2023: LDL 37, HDL 27, triglyceride 65, total cholesterol 74 Stable - Continue atorvastatin 20 mg daily #DM Hemoglobin A1c 7.3% 08/24/2024 On insulin Plan Overview: Labs today: CBC, BMP Decrease Imdur to 30 mg daily Follow-up in 2 months This note was partially composed using voice recognition software. While every effort was made to ensure accuracy, some unintentional foundation coordinator errors may be present. Angelo Reid, [facility] Cardiovascular Medicine [1] Past Medical History: Diagnosis Date Abnormal ECG Arrhythmia Atrial fibrillation (CMS/HCC) Atrial flutter ([facility]/HCC) CHF (congestive heart failure) ([facility]/HCC) Coronary artery disease Diabetes ([facility]/HCC) Hyperlipidemia Hypertension [2] Past Surgical History: Procedure Laterality Date HERNIA REPAIR VASCULAR SURGERY [3] Patient Active Problem List Diagnosis PAD (peripheral artery disease) Skin ulcer, limited to breakdown of skin ([facility]/HCC) Diabetes mellitus (CMS/HCC) Primary hypertension Ischemic ulcer with fat layer exposed (CMS/HCC) Atrial flutter (CMS/HCC) PRASAD (dyspnea on exertion) Chest pain on exertion 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 Frequent falls Vascular insufficiency Paroxysmal atrial fibrillation (CMS/HCC) 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) Neurological disorder Mixed hyperlipidemia Chronic venous hypertension NSTEMI (non-ST elevated myocardial infarction) (CMS/HCC) Cardiomyopathy, ischemic Abscess of right foot Cellulitis of toe of left foot 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) Hospital discharge follow-up halfway current use of insulin (CMS/HCC) Open wound of left lower extremity Stage 3a chronic kidney disease (CKD) (CMS/HCC) Weakness generalized Nonsmoker BMI 33.0-33.9,adult Obesity (BMI 30-39.9) Scaly skin Type 2 diabetes mellitus treated with insulin (CMS/HCC) [4] Social History Tobacco Use Smoking status: Never Smokeless tobacco: Never Substance Use Topics Alcohol use: Not Currently [5] Allergies Allergen Reactions Multivitamin Unknown Niacin Cause sweating documented in this encounter Plan of Treatment NameTypePriorityAssociated DiagnosesOrder ScheduleBasic metabolic panelLab Routine Chronic systolic heart failure (CMS/HCC) Expected: 11/19/2024 (Approximate), Expires: 11/19/2025BC and differentialLab Routine Chronic systolic heart failure (CMS/HCC) Expected: 11/19/2024 (Approximate), Expires: 11/19/2025documented as of this encounter Visit Diagnoses Diagnosis Chest pain on exertion- Primary Unspecified chest pain Chronic systolic heart failure (CMS/HCC) Chronic systolic heart failure Cardiomyopathy, ischemic Other specified forms of chronic ischemic heart disease Coronary artery disease involving pokagon coronary artery of pokagon heart with other form of angina pectoris Typical atrial flutter (CMS/HCC) Benign hypertensive heart disease with heart failure (CMS/HCC) Mixed hyperlipidemia Paroxysmal atrial fibrillation (CMS/HCC) Atrial fibrillation Type 2 diabetes mellitus with other specified complication, unspecified whether assistant terminal manager insulin use (CMS/HCC) Ischemic cardiomyopathy Other specified forms of chronic ischemic heart disease documented in this encounter Care Teams Team MemberRelationshipSpecialtyStart DateEnd Date Sophia Rodriguez FNP-C [address] [place] [address] PCP - GeneralNurse Practitioner08/23/24documented as of this encounter
--- OUTSIDE RECORDS SUMMARY | 2024-11-27 11:52 | XMS_ITS | Encounter Summary ---
Author Organization [facility] Address [address] [place] [address] Care Team Providers Care Intermediate Teacher Name Role Phone Sophia Rodriguez BINDERY SUPERVISOR-C Primary Care Provider [phone] Encounter Details DateTypeDepartmentCare Team (Latest Contact Info)Csxgnjmscyb99/13/2025Telephone [facility] [address] [place] [address] Obdulia Mo MA Social History Tobacco UseTypesPacks/DayYears UsedDateSmoking Tobacco: NeverSmokeless [...] of your partner or ex-partner?No10/13/2022Emotionally AbusedNot on file3Physically AbusedNot on file10/13/2022Sexually AbusedNot on file10/13/2022hysically or [...] file10/13/2022Sex and Gender InformationValueDate RecordedSex Assigned at SnvcpIfcw04/14/2023 9:36 AM EDTLegal IkbOzai0508/06/2021 12:38 AM EDT Gender AnhlquraNctu26/14/2023 9:36 AM EDTSexual OrientationHeterosexual or Npvawogm54/14/2023 9:36 AM EDTdocumented as of this encounter Functional Status * BPAnswerDate of QlboitxlhbFxpliu61/ 1:16 PM Obdulia Nichole MA * PulseAnswerDate of ZfzqighpbcGbnzdu6525/13/2025 1:16 PM Obdulia Nichole MA * Patient PositionAnswerDate of LhgkfrqiqgXvrgzfZdxoxly48/13/2025 1:16 PM EDT Obdulia Mo MA * BPAnswerDate of FllhpgxpgoAmtkyl125211/19/2024 1:16 PM Obdulia Nichole MA * PulseAnswerDate of LqwdqqlsovZyvydw8149/13/2025 1:16 PM Obdulia Nichole MA * HpT3DsrsicVjls of IsgawgqhpeDvctdf6820/13/2025 1:16 PM Obdulia Nichole MA * BP LocationAnswerDate of AssessmentAuthorLeft arm11/19/2024 1:16 PM EDT Obdulia Mo MA * Patient PositionAnswerDate of IfnbqhattwQeuhgxQaczksm09/13/2025 1:16 PM EDT Obdulia Mo MA documented as of this encounter Miscellaneous Notes * Telephone Encounter - Obdulia Mo MA - 11/19/2024 4:37 PM EDT Left message for patients Nephew Peyman Segura, for patient to stop lasix for 1 week and repeat bmp in one week. Lab order faxed to scheduling. Return call from patient. Advised patient of his lab results per Angelo Reid, advised patient to hold lasix for 1 week and repeat labs. Patient verbalized under standing and agreed with the plan of care. documented in this encounter Plan of Treatment NameTypePriorityAssociated DiagnosesOrder ScheduleBasic metabolic panelLab Routine Stage 3 chronic kidney disease, unspecified whether stage 3a or 3b CKD (CMS/HCC) Expected: 11/19/2024 (Approximate), Expires: 11/19/2025documented as of this encounter Visit Diagnoses Diagnosis Stage 3 chronic kidney disease, unspecified whether stage 3a or 3b CKD (CMS/HCC) - Primary documented in this encounter Care Teams Team MemberRelationshipSpecialtyStart DateEnd Date Sophia Rodriguez FNP-C [address] [place] [address] PCP - GeneralNurse Practitioner08/23/24documented as of this encounter
--- OUTSIDE RECORDS SUMMARY | 2024-11-27 11:52 | XMS_ITS | Clinical Summary ---
Author Organization [facility] Address [address] [id number] Care Team Providers Care Make Up Girl Name Role Phone Unavailable Primary Care Provider Unavailabl e Social History Tobacco UseTypesPacks/DayYears UsedDateSmoking Tobacco: Never AssessedSex and Gender InformationValueDate RecordedSex Assigned at BirthNot on fileLegal Sex Male04/28/2022 12:00 PM EDTGender IdentityNot on fileSexual OrientationNot on file Plan of Treatment Health MaintenanceDue DateLast DoneCommentsDTaP,Tdap,and Td Vaccines (1 - Tdap) 1956Pneumococcal Vaccines 50years + (1 of 1 - PCV)04/14/1987Zoster Recombinant Vaccines (1 of 2)04/14/1987Respiratory Syncytial Virus (RSV) or ages 60 years and older (1 - 1-dose 75+ series)2012COVID-19 Vaccine (1 - 2024- season)2024Influenza Vaccine (#1)2024 Respiratory Syncytial Virus (RSV) ages 0 thru 19 monthsAged OutNo longer eligible based on patient's age to complete this topic
--- OUTSIDE RECORDS SUMMARY | 2024-11-27 11:52 | XMS_ITS | Encounter Summary ---
Author Organization [facility] Address [address] [place] [address] Care Team Providers Care Associate Professor Of Library Science Name Role Phone Sophia Rodriguez SCRAP HANDLER-C Primary Care Provider [phone] Encounter Details DateTypeDepartmentCare Team (Latest Contact Info)Lkoffpjhozx20/15/2025Orders Only [facility] [address] [place] [address] ProviderCelestina MD [facility] [place] [id number] Social History Tobacco UseTypesPacks/DayYears UsedDateSmoking Tobacco: NeverSmokeless [...] on file10/13/2022hysically AbusedNot on file10/13/2022Sexually AbusedNot on file09/06/2023Physically or Sexually AbusedNot on file10/13/2022Transportation AnswerDate RecordedIn [...] file10/13/2022Sex and Gender InformationValueDate RecordedSex Assigned at OgmawPmcb05/14/2023 9:36 AM EDTLegal CvsVwyj8508/06/2021 12:38 AM EDT Gender RrjtscmbOerc18/14/2023 9:36 AM EDTSexual OrientationHeterosexual or Whditbdd17/14/2023 9:36 AM EDTdocumented as of this encounter Plan of Treatment Not on file documented as of this encounter Procedures Procedure NamePriorityDate/TimeAssociated DiagnosisCommentsECG 12-LEADRoutine 11/19/2024 8:52 AM EDTdocumented in this encounter Results * ECG 12 lead (11/19/2024 8:52 AM EDT) Narrative Authorizing ProviderResult TypeResult StatusHistorical Provider MDECG ORDERABLES Final Result documented in this encounter Visit Diagnoses Not on filedocumented in this encounter Care Teams Team MemberRelationshipSpecialtyStart DateEnd Date Sophia Rodriguez FNP-C [address] [place] [address] PCP - GeneralNurse Practitioner08/23/24documented as of this encounter
--- OUTSIDE RECORDS SUMMARY | 2024-11-27 11:52 | XMS_ITS | Clinical Summary ---
Author Organization [facility] Address [id number] [place] [address] Care Team Providers Care Supervisor Anodizing Name Role Phone Sky Landon MD Primary Care Provider [phone] Allergies Active AllergyReactionsCriticalityNoted ZqcnRjhpnnejGlwuhk75/23/2021 Cause sweating Medications MedicationSigDispense QuantityRefillsLast FilledStart DateEnd DateStatus amLODIPine (NORVASC) 5 mg tablet Take 1 tablet by mouth daily. 10/15/2020ctive ELIQUIS 5 mg tablet Take 1 tablet by mouth 2 (two) times a day.10/15/2020ctive insulin aspart U-100 (NovoLOG) 100 unit/mL injection INJECT DIRECTED PER SLIDING SCALE BEFORE MEALS AND AT WYXKIKI7808/24/2020ctive metoprolol tartrate (LOPRESSOR) 25 mg tablet Take 1 tablet by mouth 2 (two) times a day.10/15/2020ctive potassium chloride (KLOR-CON M) 20 MEQ CR tablet Take 1 tablet by mouth 2 (two) times a day. 10/15/2020ctive valsartan (DIOVAN) 80 mg tablet Take 1 tablet by mouth daily. 10/15/2020ctive ascorbic acid, vitamin C, (VITAMIN C) 250 mg tablet Take 250 mg by mouth 2 (two) times a day. 10/16/2020ctive HumaLOG KwikPen Insulin 100 unit/mL insulin pen Sliding Scale 10/18/2020ctive BD ULTRA-FINE MAIDA PEN NEEDLE 32 gauge x 5/32 needle 2 (two) times a day. 10/18/2020ctive zinc gluconate 50 mg tablet Take 50 mg by mouth daily. 10/16/2020ctive ciprofloxacin, mixture, (CIPRO XR) 500 mg 24 hr tablet Take 500 mg by mouth daily. Pt states he has one pill left. Active clopidogreL (PLAVIX) 75 mg tablet Take 1 tablet (75 mg total) by mouth daily. 30 tablet ctive atorvastatin (LIPITOR) 40 mg tablet 02/03/2021ctive LANTUS SOLOSTAR U-100 INSULIN 100 unit/mL (3 mL) insulin pen 02/03/2021ctive Active Problems ProblemNoted DateDiagnosed DateChronic skin ulcer05/21/2021Ischemic ulcer with fat layer njfnlem6605/21/2021thscl false pass arteries of right leg w ulcer oth prt foot11/06/2020 Overview (11/06/2020): Added automatically from request for surgery [id number] PAD (peripheral artery disease)11/06/2020 Overview (11/06/2020): Added automatically from request for surgery [id number] Social History Tobacco UseTypesPacks/DayYears UsedDateSmoking Tobacco: NeverSmokeless Tobacco: NeverAlcohol UseStandard Drinks/WeekCommentsDefer0 (1 standard drink = 0.6 oz pure alcohol)Sex and Gender InformationValueDate RecordedSex Assigned at Not on fileLegal ExdBado2909/19/2020 12:21 PM EDTGender IdentityNot on fileSexual OrientationNot on file Last Filed Vital Signs Vital SignReadingTime TakenCommentsBlood Xmabqljv130/5804 3:06 PM EDT Jmmnv5523 3:06 PM EDTTemperature--Respiratory Ivtk7306 4:30 PM EDTOxygen Nwbdixhmdg49%05/21/2021 3:06 PM EDTInhaled Oxygen Concentration-- Cuayku750.3 kg (230 lb)05/21/2021 3:06 PM HUWPmmbsj086.4 cm (6' 1 )05/21/2021 3:06 PM EDTBody Mass Index30.34005/21/2021 3:06 PM EDT Plan of Treatment Health MaintenanceDue DateLast DoneCommentsDepression Sbfmxksyk31/07/1950Tobacco Uhozdzpee99/07/1950Zoster (Shingles) Vaccine (1 of 2)04/14/1987Fall Risk Qeoqyoxmr41/07/2003COVID-19 Vaccine (2024- season)5103/06/2021, 12/08/2020, 06/04/2020, Additional history existsInfluenza Vdqmsqn7510/08/2024 DTaP,Tdap and Td Vaccines (2 - Tdap) Medical Devices Not on file Insurance Care Teams Team MemberRelationshipSpecialtyStart DateEnd Date Sky Landon MD [address] [place] [address] PCP - GeneralFamily Mrsipgox49/11/21
--- OUTSIDE RECORDS SUMMARY | 2024-11-27 11:52 | XMS_ITS | Clinical Summary ---
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 SHOOTER-C Primary Care Provider [phone] Allergies Active AllergyReactionsCriticalityNoted DateCommentsMultivitaminUnknown 06/29/20229103Amecxw22/23/2021 Cause sweating Medications MedicationSigDispense QuantityRefillsLast FilledStart DateEnd DateStatus insulin glargine (Lantus) 100 unit/mL (3 mL) pen INJECT 28 UNITS TWICE DAILY, MAY BE ADJUSTED UP TO 30 UNITS02/03/2021ctive insulin lispro (HumaLOG) 100 unit/mL injection PLEASE SEE ATTACHED FOR DETAILED GBCGCYPXLJ12/11/2021ctive dapagliflozin propanediol (Farxiga) 5 mg Indications:heart failure,type 2 diabetes mellitusTake 1 tablet (5 mg) by mouth once daily as directed for 360 doses. 90 tablet ctive Additional Information Patient not taking.Reported on 11/19/2024 metoprolol tartrate (Lopressor) 100 mg tablet Indications:Paroxysmal atrial fibrillation (CMS/HCC)Take 1 tablet (100 mg) by mouth in the morning and at bedtime. 180 tablet 4Active furosemide (Lasix) 20 mg tablet Indications:Chronic systolic heart failure (CMS/HCC)TAKE 1 TAB BY MOUTH IF NEEDED EACH DAY FOR WEIGHT GAIN OF 2-3 LBS IN A DAY OR 5 LBS IN A WEEK,LEG SW ELLING,INCREASED SHORTNESS OF BREATH 30 tablet 5Active atorvastatin (Lipitor) 20 mg tablet Indications:NSTEMI (non-ST elevated myocardial infarction) (CMS/HCC)TAKE 1 TABLET BY MOUTH AT BEDTIME 90 tablet 5Active losartan (Cozaar) 25 mg tablet Indications:Chronic systolic heart failure (CMS/HCC),Cardiomyopathy, ischemic, Coronary artery disease of [place] artery of [place] heart with stable angina pectorisTake 1 tablet (25 mg) by mouth once daily as directed. 90 tablet ctive apixaban (Eliquis) 5 mg tablet Indications:Paroxysmal atrial fibrillation (CMS/HCC)Take 1 tablet (5 mg) by mouth in the morning and at bedtime. 180 tablet ctive metoprolol tartrate (Lopressor) 50 mg tablet Indications:Typical atrial flutter (CMS/HCC)Take 1 tablet (50 mg) by mouth two times daily. 180 tablet ctive isosorbide mononitrate ER (Imdur) 30 mg 24 hr tablet Indications:Ischemic cardiomyopathy,Coronary artery disease involving [place] coronary artery of [place] heart with other form of angina pectorisTake 1 tablet (30 mg) by mouth in the morning. Do not crush or chew. 90 tablet ctive isosorbide mononitrate ER (Imdur) 60 mg 24 hr tablet Indications:Ischemic cardiomyopathy,Coronary artery disease involving [place] coronary artery of [place] heart with other form of angina pectorisTake 1 tablet (60 mg) by mouth in the morning. Do not crush or chew. 90 tablet Discontinued(Reorder) Active Problems ProblemNoted DateDiagnosed MeqwBfidzlocm24/18/2025MI 33.0-33.9,adult08/24/2024 Obesity (BMI 30-39.9)08/24/2024Scaly skin08/24/2024Hospital discharge follow-up 09/20/2023Weakness gzjazmruwuu03/13/2024hronic combined systolic and diastolic heart kotcusk7308/18/2023 Overview (09/20/2023): added per 04/29/2023 query response. added per 04/29/2023 query response. 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 added per OP CDI policy. Current Medication List includes Lantus and Humalog. added per OP CDI policy. Current Medication List includes Lantus and Humalog. added per OP CDI policy. Current Medication List includes Lantus and Humalog. added per OP CDI policy. Stage 3a chronic kidney disease (CKD)08/18/2023Type 2 diabetes mellitus treated with jqolbsu4608/18/2023 Overview (08/24/2024): linked DM with HLD per OP CDI policy. Open wound of left lower sxsuknmms52/10/2024Cardiomyopathy, ohastvfs58/25/2024 Abscess of right foot11/04/2022ellulitis of toe of left foot11/04/2022hronic ulcer of right foot with fat layer wwizply7011/04/2022NSTEMI (non-ST elevated myocardial infarction)10/13/2022Vascular psncdufgdbgvv89/20/2023 Overview (07/27/2022): of limb Paroxysmal atrial zntiucpqaxjh66/20/2023Neurological disorder due to type 1 diabetes fdnsygfc87/20/2023Neurological /20/2023 Overview (07/27/2022): associated with DM Type I Chronic venous tylsghhoeqtf64/20/2023oronary artery disease of [place] artery of [place] heart with stable angina slzvopzg91/14/2023Frequent falls07/21/2022Mixed mmahntpxcauwyh30/18/2023DOE (dyspnea on exertion)02/09/2022 Assessment & Plan (02/14/2022 3:09 PM EST): -this has worsened compared to his last visit he states -could be worsening diastolic dysfunction vs wosening a-flutter -will need ECHO to assess for HF -will order lexiscan for the new onset chest pain/pressure with exertion Chest pain on ndavpipv95/03/2023 Assessment & Plan (02/14/2022 3:12 PM EST): -this is new, could be related to being in a-flutter more frequently than prior visit -will order lexiscan to better assess for ischemia Skin ulcer, limited to breakdown of skin05/21/2021Ischemic ulcer with fat layer /14/2022Diabetes wqgdecbs24/15/2021rimary jbnmppgteyek27/15/2021 Assessment & Plan (02/14/2022 3:09 PM EST): Hypertension is controlled -continue valsartan, metoprolol Atrial gbgxajh6212/22/2020 Assessment & Plan (02/14/2022 3:13 PM EST): -appears typical a-flutter -no longer apparent to being paroxysmal -will have him follow up within 1-[address] Saldana possible ablation -mpg1kx4-bcgi: 4 (age, htn, dm, chf), continue eliquis -will increase metoprolol tartrate to 50mg BID for better rate control PAD (peripheral artery disease)11/06/2020 Overview (02/05/2022): Added automatically from request for surgery [id number] Resolved Problems ProblemNoted DateDiagnosed DateResolved TlrrZcsdnqixkobhdh28/08/202304/ Overview (07/15/2022): Added automatically from request for surgery [id number] Encounters DateTypeDepartmentCare HnrjCyidchrxdon53/15/2025Orders Only [facility] [address] [place] [facility] [place] [address] Provider, MD Celestina 11/19/2024 1:20 PM EDTOffice Visit [facility] [address] [place] [facility] [place] [address] Angelo Reid CNP Chest pain on exertion (Primary Dx); Chronic systolic heart failure (CMS/HCC); Cardiomyopathy, ischemic; Coronary artery disease of [place] artery of [place] heart with stable angina pectoris; Typical atrial flutter (CMS/HCC); Benign hypertensive heart disease with heart failure (CMS/HCC); Mixed hyperlipidemia; Paroxysmal atrial fibrillation (CMS/HCC); Type 2 diabetes mellitus with other specified complication, unspecified whether penitentiary insulin use (CMS/HCC); Ischemic cardiomyopathy; Coronary artery disease involving [place] coronary artery of [place] heart with other form of angina epxgapaq77/13/2025Telephone [facility] [address] [place] [facility] [place] [address] Obdulia Mo MA 10/05/2024Refill [facility] [address] [place] [facility] [place] [address] Yany Gu CNP Paroxysmal atrial fibrillation (CMS/HCC)09/19/2024Telephone [facility] [address] [place] [facility] [place] [address] Aishwarya Victoria MA 09/19/2024Orders Only [facility] [address] [place] [address] Angelo Reid CNP 09/06/2024Orders Only [facility] [address] [place] [address] Provider, MD Celestina from Last 3 Months Family History Medical HistoryRelationNameCommentscoronary artery bypass graftFatherHeart failureSisterRelationNameStatusCommentsFatherDeceasedMotherDeceasedSister Social History Tobacco UseTypesPacks/DayYears UsedDateSmoking Tobacco: NeverSmokeless Tobacco: Never Tobacco Cessation:Counseling Given: Not Answered Alcohol UseStandard Drinks/WeekCommentsNot Currently0 (1 standard drink = 0.6 oz pure alcohol)Humiliation, Afraid, Rape, and Kick questionnaireAnswerDate RecordedWithin the last year, have you been afraid of your partner or ex-partner?No10/13/2022Emotionally AbusedNot on file3Physically Abused Not on file10/13/2022Sexually AbusedNot on file10/13/2022Overall [...] file10/13/2022Sex and Gender InformationValueDate RecordedSex Assigned at WcwaaIzte00/14/2023 9:36 AM EDTLegal WtyXxrf5808/06/2021 12:38 AM EDT Gender FmykgxckUpca03/14/2023 9:36 AM EDTSexual OrientationHeterosexual or Jpbaalje55/14/2023 9:36 AM EDT Last Filed Vital Signs Vital SignReadingTime TakenCommentsBlood Cicuwuun86/5210 1:16 PM EDT Xcqkt1600 1:16 PM VCSRjqgcjicrbj96.3 ??C (97.3 ??F)10/19/2022 8:00 AM EDTRespiratory Szfp460110/19/2022 8:00 AM EDTOxygen Rqcpvmyejk50%11/19/2024 1:16 PM EDTInhaled Oxygen Concentration--Rvnbit335 kg (241 lb)11/19/2024 1:16 PM EDT Kyvazl967.4 cm (6' 1 )11/19/2024 1:16 PM EDTBody Mass Index31.810 1:16 PM EDT Plan of Treatment Health MaintenanceDue DateLast DoneCommentsMedicare Annual Wellness (AWV) 1937Diabetes: Retinopathy Xvgsexmll57/07/1948Depression Screening 1949Diabetes: Urine Protein Qufuefere76/07/1957dult Yaonjgl8604/14/1959 Zoster Vaccines (1 of 2)04/14/1987Fall Risk Jdpuirygk01/07/2003Diabetes: Hemoglobin A1C/OVID-19 Vaccine ( season) , 01/20/2023, 01/04/2022, Additional history existsInfluenza Vaccine (#1)10/08/2024Pneumococcal Vaccine: 50+ AxxwbZmhhoftep10/28/2022HIB VaccinesAged OutNo longer eligible based on patient's age to complete this topic HPV VaccinesAged OutNo longer eligible based on patient's age to complete this topicIPV VaccinesAged OutNo longer eligible based on patient's age to complete this topicMeningococcal B VaccineAged OutNo longer eligible based on patient's age to complete this topicMeningococcal VaccineAged OutNo longer eligible based on patient's age to complete this topicRotavirus VaccinesAged OutNo longer eligible based on patient's age to complete this topic Medical Devices ImplantedTypeAreaManufacturerDevice IdentifierShelf Expiration DateModel / Serial / Avelino Mcnamara Mr 2.75 X 16 - [id number] Implanted:Qty: 1 on 10/18/2022 [facility] El[facility] Stent[facility] [id number]/08/2024 [id number] / / [id number],Synergy Xd Mr 2.5 X48mm - [id number] Implanted:Qty: 1 on 10/18/2022 by [facility] [employer] [id number]/ [id number] / / [id number] Procedures Procedure NamePriorityDate/TimeAssociated DiagnosisCommentsECG 12-LEADRoutine 11/19/2024 8:52 AM EDTCOMPLETE TRANSTHORACIC ECHO (TTE) W/WO IMAGING AGENT, STRAIN, 3D, BUBBLE IVMSALrgwwvs11/30/2025 11:52 AM EDTHEMOGLOBIN X0ITmd-Nk 10/14/2022 11:43 AM EDT from Last 3 Months or Most Recently Relevant to Health Maintenance Results * ECG 12 lead (11/19/2024 8:52 AM EDT) Narrative Authorizing ProviderResult TypeResult StatusHistorical Provider MDECG ORDERABLES Final Result * Complete Echo (TTE) w/wo Imaging Agent, Strain, 3D, Bubble Study (09/05/2024 11:52 AM EDT)Anatomical RegionLateralityModalityUltrasound Narrative Authorizing ProviderResult TypeResult StatusHistorical Provider [facility] [place] [place] ECHO PROCEDURESFinal Result * (ABNORMAL) Hemoglobin A1c (10/14/2022 11:43 AM EDT)ComponentValueRef RangeTest MethodAnalysis TimePerformed AtPathologist SignatureHemoglobin A1C7.4(H)4.0 - 6.0 %10/14/2022 2:56 PM [facility] ([facility])Estimated Average Glucose 166mg/dL10/14/2022 2:56 PM [facility] ([facility])Specimen (Source) Anatomical Location / LateralityCollection Method / VolumeCollection Time Received TimeBloodVenous blood specimen / UnknownArterial Line / Unknown 10/14/2022 11:43 AM EDT10/14/2022 12:27 PM EDT Narrative Authorizing ProviderResult TypeResult StatusOmalorraine BERG BLOOD ORDERABLES Final ResultPerforming OrganizationAddressCity/State/ZIP CodePhone Number [facility] [address] [place], [place] [id number] from Last 3 Months or Most Recently Relevant to Health Maintenance Insurance Advance Directives * Full Code (Latest Code Status on File) Date ActivatedDate InactivatedComments10/13/2022 10:58 PM10/19/2022 3:15 PM Care Teams Team MemberRelationshipSpecialtyStart DateEnd Date Sophia Rodriguez FNP-C [address] [place] [address] PCP - GeneralNurse Practitioner08/23/24
--- OUTSIDE RECORDS SUMMARY | 2024-11-27 11:52 | XMS_ITS | Clinical Summary ---
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 Name Role Phone Sky Landon MD Primary Care Provider [phone] Allergies Active AllergyReactionsCriticalityNoted HocgDzmdtodePusvxeZckwUyn23/26/2023 Medications MedicationSigDispense QuantityRefillsLast FilledStart DateEnd DateStatus isosorbide mononitrate ER (Imdur) 30 MG 24 hr tablet Take 30 mg by mouth in the morning.07/22/2022ctive Eliquis 5 MG tablet Take 5 mg by mouth in the morning and 5 mg before bedtime.Active atorvastatin (Lipitor) 20 MG tablet Take 20 mg by mouth at bedtime.10/21/2022ctive HumaLOG KWIKPEN 100 UNIT/ML injection 08/09/2022ctive Farxiga 5 MG Take 5 mg by mouth Daily05/03/2023ctive furosemide (Lasix) 20 MG tablet 06/23/2023ctive losartan (Cozaar) 25 MG tablet Take 25 mg by mouth Daily08/17/2023ctive insulin glargine (Lantus) 100 UNIT/ML injection Inject 30 Units under the skin in the morning and 30 Units before bedtime.Active metoprolol tartrate (Lopressor) 50 MG tablet Take 100 mg by mouth04/20/2023ctive Active Problems ProblemNoted DateDiagnosed DateChronic combined systolic and diastolic heart ccjjzpe7008/18/2023 Overview (08/18/2023): added per 04/29/2023 query response. 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 added per OP CDI policy. Current Medication List includes Lantus and Humalog. added per OP CDI policy. Peripheral vascular ljudbmc5008/18/2023Stage 3a chronic kidney disease (CKD) 08/18/2023Type 2 diabetes mellitus treated with qgwncik4408/18/2023 Overview (08/18/2023): linked DM with CKD per OP CDI policy. linked DM with CKD per OP CDI policy. Open wound of left lower /10/2024ardiomyopathy, qpicfaph12/25/2024 Abscess of right foot3Cellulitis of toe of left foot11/04/2022hronic ulcer of right foot with fat layer aiskypt05/28/2023Paroxysmal atrial doikugejogsn73/20/2023Diabetes jmhsfnja83/15/2021Athscl cocopah arteries of right leg w ulcer oth prt foot11/06/2020 Overview (11/04/2022): Added automatically from request for surgery [id number] Family History Medical HistoryRelationNameCommentsHeart diseaseFatherStrokeFatherhtnFather DiabetesMaternal GrandfatherDiabetesMaternal GrandmotherDiabetesMotherHeart diseasePaternal GrandfatherRelationNameStatusCommentsFatherMaternal Grandfather Maternal GrandmotherMotherPaternal Grandfather Social History Tobacco UseTypesPacks/DayYears UsedDateSmoking Tobacco: NeverSmokeless Tobacco: Never Tobacco Cessation:Counseling Given: Not Answered Alcohol UseStandard Drinks/WeekCommentsNever0 (1 standard drink = 0.6 oz pure alcohol)Sex and Gender InformationValueDate RecordedSex Assigned at BirthNot on fileLegal GtxEwdf2906/07/2022 8:35 PM EDTGender IdentityNot on fileSexual OrientationNot on file Last Filed Vital Signs Vital SignReadingTime TakenCommentsBlood Yfedbrde928/5107 12:53 PM EDT Pedwd3446 12:53 PM EDTTemperature--Respiratory Fmnl916204/17/2024 1:07 PM EDTOxygen Saturation--Inhaled Oxygen Concentration--Ypospg918 kg (224 lb) 08/16/2024 12:53 PM PXYWtevdz141.4 cm (6' 1 )08/16/2024 12:53 PM EDTBody Mass Index29.55008/16/2024 12:53 PM EDT Plan of Treatment DateTypeDepartmentCare Team (Latest Contact Info)Mbwtzjglluz38/13/2025 2:00 PM ESTProcedure Visit [facility] [address] [place] [address] [employer] [facility] [address] [place] [address] Health MaintenanceDue DateLast DoneCommentsInfluenza Vaccine (#1)10/08/2024 Pneumococcal Vaccine: 65+ WomyxKtgjldhln43/28/2022, 10/17/2012 Insurance Care Teams Team MemberRelationshipSpecialtyStart DateEnd Date Sky Landon MD [facility]12/09/23
--- OUTSIDE RECORDS SUMMARY | 2024-11-27 11:56 | XMS_ITS | CCD ---
Author Organization [facility] Care Team Providers Care Bonsai Tender Name Role Phone DOMINGO MEDRANO Primary Care Physician Gilson Salgado Primary Care Physician [phone] NATALEE, DR HAZEL Attending Unavailable MEDRANO ., DR DOMINGO Tran Primary Care Unavailable DR YASEMIN ALBRIGHT Admitting Unavailable TARA KELLEY Attending Unavailable TARA KELLEY Admitting Unavailable MEDRANO ., DR DOMINGO Tran [...] Unavaila ble DOM, RAPHAEL Blanton Admitting Unavailable HIGHLANDERRAPHAEL Attending Unavailable REQUEST, NONE LISTED Primary Care [...] NONE LISTED Primary Care Unavaila ble TARA KELLEY Attending Unavailable TARA KELLEY Admitting Unavailable MEDRANO ., DR DOMINGO Tran Primary Care Unavailable CELIO SALDANA Consulting Unavailable CELIO SALDANA Attending Unavailable GILSON SALGADO Primary Care Unavailable CELIO SALDANA Admitting Unavailable TARA KELLEY Consulting Unavailable TARA KELLEY Attending Unavailable TARA KELLEY Admitting Unavailable MITCHELL ., DR DOMINGO Tran Primary Care Unavailable REQUEST, DR MICHAEL LISTED Primary Care Unavaila ble MITCHELL ., DR DOMINGO Tran Consulting Unavailable MEDRANO ., DR DOMINGO Tran Attending Unavailable MITCHELL ., DR DOMINGO Tran Admitting Unavailable Gilson Salgado MD Primary Care Provider [phone] Gilson Salgado Attending Unavailable Gilson Salgado Admitting Unavailable Gilson Salgado Attending Unavailable GIRISH BECKER Attending Unavailable Gilson Salgado Attending Unavailable Gilson Salgado Attending Unavailable Gilson Salgado Attending Unavailable Gilson Salgado Attending Unavailable Gilson Salgado Attending Unavailable Gilson Salgado Admitting Unavailable Gilson Salgado Attending Unavailable PATRICK ADKINS Attending Unavailabl PATRICK Javier Attending Unavailabl PATRICK Javier Attending Unavailabl e GIRISH BECKER Attending Unavailable GIRISH BECKER Attending Unavailable MD Gilson Salgado Attending Unavailable MD Gilson Salgado Admitting Unavailable JASON BECKER Attending UnavailGilson Neumann Attending Unavailable Gilson Salgado Attending Unavailable Gilson Salgado Attending Unavailable Gilson Salgado Admitting Unavailable Gilson Salgado Attending Unavailable ANGELO ELLIOTT Attending Unavailable ANGELO ELLIOTT Attending Unavailable Allergies Allergy ClassificationReported Allergen(s)Allergy TypeDate of OnsetReaction(s) Facility (5 sources)Ascorbic Acid / Cholecalciferol / Vitamin A; Translations: [multivitamin]Drug AllergyUnknown (qualifier value)[facility] (9 sources)Niacin; Translations: [niacin]Drug Rxeghyo76-08-9365Fbnuqoc (qualifier value)[facility] (2 sources)NiacinDrug Tpzcwnv89-23-0855[facility] (4 sources)NiacinDrug Otggugx27-92-5473DqwtXVE[facility] (1 source)Multivitamin preparation; Translations: [MULTIVITAMIN]Drug Allergy 48-42-2434U[facility]zwmjersProMed[facility] Medications Current Medications MedicationDrug Class(es)DatesSig (Normalized)Sig (Original)apixaban 5 mg oral tablet (9 sources)Factor Xa InhibitorStart: 72-20-8259yvax 1 tablet by mouth twice dailyEliquis 5 mg oral tablet 5 mg = 1 tab(s), Oral, BID, # 180 tab(s), Refills(s) 1, Pharmacy: [facility]/pharmacy #[id number], 182, cm, 06/04/24 12:51:00 EDT, Height/Length Dosing, 110, kg, 06/04/24 12:51:00 EDT, Weight Dosing Start Date: 06/04/24 Status: Ordered Quantity: 180.0 Unit: tab(s) Repeat number: 2ascorbic acid 250 mg oral tablet (1 source)Vitamin CStart: 28-70-1213ecvq 1 tablet by mouth twice dailyascorbic acid 250 mg oral tablet 250 mg = 1 tab(s), Oral, BID, # 60 EA, Refills(s) 0 Start Date: 04/23/22 Status: Orderedaspirin 81 mg delayed release oral tablet (2 sources)Platelet Aggregation Inhibitor, Nonsteroidal Anti-inflammatory Drug Start: 92-00-4324gztr 1 tablet by mouth once dailyaspirin 81 mg Oral EC Tab 81 mg = 1 tab(s), Oral, Daily, # 30 tab(s), Refills(s) 0 Start Date: 04/24/22 Status: Orderedatorvastatin 20 mg oral tablet (9 sources)HMG-CoA Reductase InhibitorStart: 96-24-9308mqxx 1 tablet by mouth at bedtimeatorvastatin (Lipitor) 20 MG tablet Take 20 mg by mouth at bedtime. 10/21/2022 ActiveStart: 54-52-5677tndr 1 tablet by mouth at bedtimeatorvastatin 40 mg Tab 40 mg = 1 tab(s), Oral, Bedtime, Refills(s) 0 Start Date: 04/24/22 Status: Ordereddapagliflozin 5 mg oral tablet (5 sources)Sodium-Glucose Cotransporter 2 InhibitorStart: 58-15-9936lhro 5 mg by mouth once dailyFarxiga 5 MG Take 5 mg by mouth Daily 05/03/2023 ActiveFolinic Acid-Vit B6-Vit B12 (Folinic-Plus) 4-50-2 MG tablet (2 sources)Start: 02-03-2023 End: 31-88-9489Ofwihkx Acid-Vit B6-Vit B12 (Folinic-Plus) 4-50-2 MG tablet Indications: Diabetic polyneuropathy associated with type 2 diabetes mellitus (CMS/HCC) Take 1 capsule by mouth in the morning. 30 tablet 11 02/03/2023 02/03/2024 Activefurosemide 20 mg oral tablet (6 sources)Loop DiureticStart: 63-85-9736lkbunmvjqu (Lasix) 20 MG tablet 06/23/2023 ActiveHandicap Placard (5 sources)Start: 77-12-9447Ioanvvlf Placard Handicap Placard, See Instructions, 1 EA, 0, Expires in 5 years Start Date: 04/23/22 Status: Ordered Quantity: 1.0 Unit: EA Repeat number: 1Start: 26-34-0349Vzcwsjfh Placard Handicap Placard, See Instructions, 1 EA, 0, Expires in 5 years Start Date: 04/23/22 Status: Ordered Handicap Placard, 5 years. (3 sources)Start: 49-89-2429Butfnryb Placard, 5 years. Handicap Placard, 5 years., See Instructions, 1 EA, 0, Handicap Placard,5 years., Supply Start Date: 10/25/22 Status: Ordered Quantity: 1.0 Unit: EA Repeat number: 1 Indication: WeaknessStart: 33-50-9478Sgbnmecj Placard, 5 years. Handicap Placard, 5 years., See Instructions, 1 EA, 0, Handicap Placard,5 years., Supply Start Date: 10/25/22 Status: Ordered3 ml insulin glargine 100 unt/ml pen injector (9 sources)Insulin AnalogStart: 29-39-8362Gbsvn: 59-54-4533Yozom: 11-08-2022 Lantus Solostar Pen 100 units/mL subcutaneous solution See Instructions, 30units subq twice a day Please dispense 3 boxes to last 90 day supply, # 3 EA, Refills(s) 1, Pharmacy: [facility]/pharmacy #[id number], 182, cm, 10/25/22 7:40:00 EDT, Height/Length Dosing, 102, kg, 10/25/22 7:40:00 EDT, Weight Dosing Start Date: 11/08/22 Status: OrderedStart: 49-13-7195Nudanm Solostar Pen 100 units/mL subcutaneous solution INJECT 28 UNITS TWICE DAILY Start Date: 04/19/22 Status: Orderedinject 30 [IU] by subcutaneous injection in the morninginsulin glargine (Lantus) 100 UNIT/ML injection Inject 30 Units under the skin in the morning and 30 Units before bedtime. Active3 ml insulin lispro 100 unt/ml pen injector (10 sources)Insulin AnalogStart: 57-01-9156Tgfxq: 08-63-6459Rhdsq: 04-18-2023 Start: 84-68-1668EwncEPG KWIKPEN 100 UNIT/ML injection 08/09/2022 ActiveStart: 95-05-1284RmzvYBT KWIKPEN 100 UNIT/ML injection See Instructions, test and cover ac and hs 151-200 3u, 201-250 6u, 251-300 9u and >351 15u. Max of 10 units a day, # 15 mL, Refills(s) 0, Pharmacy: [facility]/pharmacy #[id number], 182, cm, 06/08/22 13:43:00 EDT, Height/Length Dosing, 107, kg, 06/08/22 13:43:00 E... 08/09/2022 ActiveStart: 04-26-2022 End: 84-85-0069Crbenmh Lispro Sliding Scale 0-10 Units, Injection-Insulin, SubCutaneous, Start date 04/26/22 11:30:00 EDT Start Date: 04/26/22 Stop Date: 04/26/22 Status: CompletedStart: 25-14-1288PqdqBYV KwikPen 100 units/mL injectable solution Refills(s) 0 Start Date: 04/19/22 Status: Bdgyzhi30 hr isosorbide mononitrate 30 mg extended release oral tablet (8 sources)Nitrate VasodilatorStart: 69-47-1693nihk 1 tablet by mouth in the morning, then take 1 tablet by mouth every twenty-four hoursisosorbide mononitrate ER (Imdur) 30 MG 24 hr tablet Take 30 mg by mouth in the morning. 07/22/2022ctiveketorolac tromethamine 5 mg/ml ophthalmic solution (2 sources)Nonsteroidal Anti-inflammatory Drug, Cyclooxygenase InhibitorStart: 17-42-6036tnkyqiotu Opth 0.5% Catherine Refill(s) 0 Start Date: 04/23/22 Status: Orderedlosartan potassium 25 mg oral tablet (9 sources)Angiotensin 2 Receptor BlockerStart: 93-19-0111wcxr 1 tablet by mouth once dailylosartan (Cozaar) 25 MG tablet Take 25 mg by mouth Daily 08/17/2023 ActiveStart: 52-91-0330lrig 0.5 tablet by mouth twice dailylosartan 50 mg Tab See Instructions, TAKE 1/2 TABLET BY MOUTH TWICE A DAY, # 180 tab(s), Refills(s) 0, Pharmacy: [facility] [id number], 182, cm, 06/08/22 13:43:00 EDT, Height/Length Dosing, 107, kg, 06/08/22 13:43:00 EDT, Weight Dosing Start Date: 08/26/22 Status: Ordered Quantity: 180.0 Unit: tab(s) Repeat number: 1Start: 08-26-2022 take 1 tablet by mouth twice dailylosartan 50 mg Tab See Instructions, TAKE 1 TABLET BY MOUTH TWICE A DAY, # 180 tab(s), Refills(s) 0, Pharmacy: [facility] [id number], 182, cm, 06/08/22 13:43:00 EDT, Height/Length Dosing, 107, kg, 06/08/22 13:43:00 EDT, Weight Dosing Start Date: 08/26/22 Status: OrderedStart: 04-24-2022 take 1 tablet by mouth twice dailylosartan 50 mg Tab 50 mg = 1 tab(s), Oral, BID, # 60 tab(s), Refills(s) 0 Start Date: 04/24/22 Status: Orderedmagnesium oxide 400 mg oral tablet (2 sources)Start: 65-31-5298lgea 1 tablet by mouth once dailymagnesium oxide 400 mg Tab TAKE 1 TABLET BY MOUTH EVERY DAY Start Date: 04/19/22 Status: Ordered ofloxacin 3 mg/ml ophthalmic solution (1 source)Quinolone AntimicrobialStart: 00-16-5699gwjegzkjm Opth 0.3% Catherine Refill(s) 0 Start Date: 04/23/22 Status: OrderedPotassium Chloride (2 sources)Start: 61-87-1694labv 1 tablet by mouth twice dailyPotassium Chloride (Jyf-Hxxh-Dai 10) 10 mEq oral tablet, extended release TAKE 1 TABLET BY MOUTH TWICE A DAY Start Date: 04/19/22 Status: OrderedZinc (2 sources)Start: 55-99-5975dxhg 1 tablet by mouth once dailyCVS ZINC 50 MG TABLET TAKE 1 TABLET BY MOUTH EVERY DAY Start Date: 04/19/22 Status: Ordered Completed/Discontinued Medications MedicationDrug Class(es)DatesSig (Normalized)Sig (Original)metoprolol tartrate 100 mg oral tablet (12 sources)beta-Adrenergic BlockerStart: 08-11-2023 End: 53-24-2373lzpp 1 tablet by mouth in the morningmetoprolol tartrate (Lopressor) 100 MG tablet Take 100 mg by mouth in the morning and 100 mg before bedtime. 08/11/2023 12/09/2023 Discontinued (Duplicate order)Start: 04-20-2023 metoprolol tartrate (Lopressor) 50 MG tablet Take 100 mg by mouth 04/20/2023 ActiveStart: 42-12-2265buva 1 tablet by mouth twice dailyMetoprolol tartrate 50 mg Tab 50 mg = 1 tab(s), Oral, BID, Refills(s) 0 Start Date: 04/20/23 Status: OrderedStart: 04-26-2022 End: 89-48-4114Nezuolxvf 25 mg oral tablet 25 mg = 1 tab(s), Tab, Oral, Start date 04/26/22 9:00:00 EDT, 04/24/22 3:19:00 EDT Start Date: 04/26/22 Stop Date: 04/26/22 Status: CompletedStart: 04-25-2022 End: 08-39-3892Zyclpmwcw 25 mg oral tablet 25 mg = 1 tab(s), Tab, Oral, Start date 04/25/22 21:00:00 EDT, 233:19:00 EDT Start Date: 04/25/22 Stop Date: 04/25/22 Status: CompletedStart: 41-35-9891fyuv 1 tablet by mouth twice daily Lopressor 25 mg oral tablet TAKE 1 TABLET BY MOUTH TWICE A DAY Start Date: 04/19/22 Status: Orderedmetoprolol 1 mg/mL Inj (1 source)Start: 04-24-2022 End: 32-87-9151ebwjuw 5 mg intravenously every four hours as neededmetoprolol 1 mg/mL Inj 5 mg = 5 mL, Injection, IV Push, q4hr PRN Other (see comment), Routine, Start date 04/24/22 3:09:00 EDT, 04/24/22 3:09:00 EDT Start Date: 04/24/22 Stop Date: 04/26/22 Status: DiscontinuedPen [place] (3 sources)Start: 65-77-6761Ypq [place], See Instructions, 300 EA, 1, To be used with giving insulin three times Dx: E11.9, [id number], Supply, 182, cm, 06/08/22 13:43:00 EDT, Height/Length Dosing, 107, kg, 06/08/22 13:43:00 EDT, Weight Dosing Start Date: 08/11/22 Status: Ordered Quantity: 300.0 Unit: EA Repeat number: 2Start: 19-20-5459Phl [place], See Instructions, 300 EA, 1, To be used with giving insulin three times Dx: E11.9, [id number], Supply, 182, cm, 06/08/22 13:43:00 EDT, Height/Length Dosing, 107, kg, 06/08/22 13:43:00 EDT, Weight Dosing Start Date: 08/11/22 Status: Ordered Problems Active Problems Problem ClassificationProblemDateDocumented DateEpisodic/ChronicAcute myocardial infarction (2 sources)Non-ST elevation (NSTEMI) myocardial infarction; Translations: [Non- ST elevation (NSTEMI) myocardial infarction]Onset: 42-76-2712WtgswkgIfowsdj dysrhythmias (18 sources)Atrial flutter; Translations: [Paroxysmal atrial fibrillation]Onset: 500638-77-8646JezhvlnNkrdutio (8 sources)Age-related nuclear cataract, right eye; Translations: [Age-related nuclear cataract, left eye]Onset: 26-77-3275NvetvdaOahhcnu kidney disease (7 sources)Chronic kidney disease; Translations: [Chronic kidney disease, unspecified]Onset: 72-48-9447TahmsfyUnfkyje ulcer of skin (5 sources)Non-pressure chronic ulcer of skin of other sites limited to breakdown of skin; Translations: [Non-pressure chronic ulcer of other part of right foot with fat layer exposed]Onset: 600250-80-7476ViboodnYthsgwiccy heart failure; nonhypertensive (12 sources)Heart failure, unspecified; 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]Onset: 22-95-9342OsbmetaVkjteza on above:added per 04/29/2023 query response.Coronary atherosclerosis and other heart disease (12 sources)Atherosclerotic heart disease of [place] coronary artery without angina pectoris; Translations: [Coronary arteriosclerosis]Onset: 03-12-2022 54-58-2989VbmcoctLwiqthkc mellitus with complications (20 sources)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 Disorders of lipid metabolism (9 sources)Hyperlipidemia; Translations: [Hyperlipidemia, unspecified]Onset: 94-35-6932JowcpooW Codes: Fall (1 source)Fall; Translations: [Unspecified fall, initial encounter]Onset: 32-28-4093UzoxxketPxylawqua hypertension (11 sources)Hypertensive disorder; Translations: [Essential (primary) hypertension]Onset: 116501-64-8286NievrhtZcpmc and electrolyte disorders (5 sources)Aycvmammufu91-72-4510SvuimjajVolqt valve disorders (1 source)Nonrheumatic pulmonary valve insufficiency; Translations: [NONRHEUMATIC PULMONARY VALVE INSUFF]Onset: 82-64-7663FymvpohWtpjzuruyjgd with complications and secondary hypertension (4 sources)Hypertensive urgency ; Translations: [Hypertensive urgency]Onset: 08-28-8752TavoxdiUndgxjq on above:linked HTN/HF/CKD per OP CDI policy.Infective arthritis and osteomyelitis (except that caused by tuberculosis or sexually transmitted disease) (1 source)Other osteomyelitis, unspecified sites; Translations: [OTHER OSTEOMYELITIS UNS SITES]Onset: 38-54-3438RwjzrgrIkwtnjz and fatigue (3 sources)Pwsrvwsh16-91-8321WagpjhsiZaoixnz (2 sources)Onychomycosis; Translations: [Tinea unguium]54-96-8631Cddisuhk Nonspecific chest pain (2 sources)Chest pain, unspecified; Translations: [Chest pain, unspecified] Onset: 63-94-3935JodbbopeNijn wounds of head; neck; and trunk (1 source)Laceration of head; Translations: [Laceration without foreign body of other part of head, initial encounter]Onset: 35-91-6012HuyqidpcLmmqi and ill- defined heart disease (5 sources)Heart auztatc75-06-8491BchveupBllwteq on above:otherOther circulatory disease (1 source)History of cerebrovascular disease; Translations: [Personal history of other diseases of the circulatory system]Onset: 47-28-1979QsaacepqLfmvb circulatory disease (5 sources)Vascular iqahcvmsplhto49-37-0455RhcjdezsUvwqoph on above:of limbOther diseases of kidney and ureters (5 sources)Kidney lgyqtxg43-78-8248AwehyqscEuvzktc on above:otherOther diseases of veins and lymphatics (5 sources)Venous xlktxlsconyj59-35-4348ApiyrjztQhtse hematologic conditions (1 source)Abnormal finding on evaluation procedure; Translations: [Other specified abnormalities of plasma proteins]Onset: 31-94-1148KkzdfgdjDytpc injuries and conditions due to external causes (1 source)Injury of head; Translations: [Unspecified injury of head, initial encounter]Onset: 68-01-7119ZlbllqugXjzig nervous system disorders (2 sources)Disorder of nervous owzynw92-60-3919CbitrqoeFvesjwg on above: associated with DM Type IOther non-traumatic joint disorders (1 source)Shoulder joint pain; Translations: [Pain in unspecified shoulder] Onset: 50-32-7599GtvipkluAjflx nutritional; endocrine; and metabolic disorders (2 sources)Body mass index 30+ - pwtvplo19-05-4171CbofpaiHhgap nutritional; endocrine; and metabolic disorders (5 sources)Cqiymrkgtm44-16-6409OlltzsqqJonwa skin disorders (1 source)Scaly mzlf58-42-5612PicxlpxfVnnyg skin disorders (1 source)Callosity; Translations: [Corns and callosities]03-24-6964Nyavowvx Peripheral and visceral atherosclerosis (13 sources)Peripheral vascular disease; Translations: [Peripheral vascular disease, unspecified]Onset: 39-09-1962JmomjesEiksphulvwpn (3 sources)Long-term current use of qstuluo42-77-5084Bnoichs on above:Current Medication List includes Lantus and Humalog. added per OP CDI policy. 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; Translations: [SKILLED NURSING CURRNT USE ANTICOAGULANTS]Onset: 71-65-0916IyporbkuHjxzk aftercare (4 sources)Long-term current use of insulin; Translations: [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]Onset: 298429-70-2569UxdfapuxIpepy lower respiratory disease (6 sources)Other forms of dyspnea; Translations: [OTHER FORMS OF DYSPNEA]Onset: 10-56-1128QpwppehlEnycu skin disorders (5 sources)Corns and callosities; Translations: [CORNS AND CALLOSITIES]Onset: 72-40-8444CmvnbjygVeswl skin disorders (5 sources)Nail dystrophy; Translations: [NAIL DYSTROPHY]Onset: 09-28-2021 EpisodicResidual codes; unclassified (1 source)Edema, unspecified; Translations: [EDEMA UNSPECIFIED]Onset: 01-14-2022 EpisodicSkin and subcutaneous tissue infections (9 sources)Cellulitis, unspecified; Translations: [Abscess of right foot]Onset: 293236-78-3072KhhtcrumFdeuvdiatkn injury; contusion (1 source)Blister (nonthermal), left lower leg, initial encounter; Translations: [BLISTER NONTHERMAL LT LOW LEG INIT]Onset: 27-49-7699Dftajicy Results Test NameValueInterpretationReference RangeFacilityOrders Onlyon 11-21-2024 Orders [id number] Zaira Segura III 1935 M Date Provider Department Center 11/21/2024 [id number], CHANG [place] Family History Problem Relation Age of Onset Other Father Heart failure Sister Family Status - Relation Status Age at Mother Father SisterNormalUniCleveland Clinic36on 39-64-831336Rnsj message for patients Nephradha Segura, for patient to stop lasix for 1 week and repeat bmp in one week. Lab order faxed to scheduling. Return call from patient. Advised patient of his lab results per Angelo Elliott, advised patient to hold lasix for 1 week and repeat labs. Patient verbalized under standing and agreed with the plan of care.[facility] 37-94-1398Jfkouc-up [id number] Zaira Segura III 1935 M [facility] Provider Department Center 11/19/2024 [id number]-GEUPCBANGELO ELLIOTT Family History Problem Relation Age of Onset Other Father Heart failure Sister Family Status - Relation Status Age at Mother Father Sister Level of Service:87163 [place] OFFICE/OUTPATIENT ESTABLISHED MOD MDM 30 MIN Reason for Visit and Comments: Follow-up [915548] - Patient is here today for a 3 month follow up. Patient had an Echo in August and labs. Patient states he is not feeling so well, patient state since they doubled his isosorbide he has not been feeling good. Its causing him to sleep a lot and he is still having chest pain. Atrial Flutter [101] Coronary Artery Disease [187] Atrial Fibrillation [80] Hyperlipidemia [182] Hypertension [718646] Cardiomyopathy [104] Fatigue [46] - Patient feels the fatigue is due to the isosorbide. Chest Pain [388273] - At night after he eats. Patient states he feels like the arteris are pressing up on his stomach causing the chest pain. Patient states he doesn't feel its heart related Edema [[id number]] - Bilateral leg swelling, Patient wants to change his Lasix to another medication due it being hard on his kidneysNormalUniCleveland ClinicTelephoneon [id number] Zaira Segura III 1935 M Date Provider Department Center 11/19/2024 [id number]-PWDZEWSLRFMADDY [facility] Family History Problem Relation Age of Onset Other Father Heart failure Sister Family Status - Relation Status Age at Mother Father SisterNoMorrow County Hospital36on 85-95-201446Ykjquib called asking about his lab results from [...] recheck labs with the increase. He verbalized understanding.NormalUnMedina HospitalOrders Onlyon 09-19-2024 Orders [id number] Zaira Segura III 1935 M Date Provider Department Center 09/19/2024 [id number]-VDKZIGANGELO [facility] Family History Problem Relation Age of Onset Other Father Heart failure Sister Family Status - Relation Status Age at Father SisterTogus VA Medical CenterAmbulatory Visit Summaryon 65-20-7059Uprtnoqbiu Visit SummaryAmbulatory Visit Summary ZAIRA SEGURA III :1935 Visit Date:09/12/2024 Ambulatory Visit Instructions Your Diagnosis Type 2 diabetes mellitus with stage 3a chronic kidney disease, with long-term current use of insulin Stage I skin ulcer Chronic kidney disease, stage 3a Nonsmoker Obesity (BMI 30-39.9) BMI 32.0-32.9,adult Your Care Team Attending Physician - GIRISH BECKER CNP Primary Care Physician - Gilson Salgado MD This Is Your Medications List Misc Prescription (BD UF MAIDA PEN NEEDLE [id number]) Misc Prescription (Handicap Placard) Misc Prescription (Handicap Placard, 5 years.) Misc Prescription ([place]) Misc Prescription (pen needles) apixaban (Eliquis 5 [...] Appointments 2024 2:30 PM EST With: Where: [address] [address]- 2024 3:20 PM EST With: GIRISH BECKER CNP Where: [address] [address]- Medications What How Much When [...] 1 TABLET BY MOUTH EVERY DAY IN THEMORNING Unchanged losartan (losartan 50 mg Tab) See instructions TAKE 1/ 2 TABLET BY MOUTH TWICE A DAY Unchanged metoprolol (Metoprolol tartrate 50 mg Tab) 1 Tablets By Mouth Every day Unchanged Misc Prescription (BD UF MAIDA PEN NEEDLE [id number]) USE 3 TIMES DAILY WITH INSULIN Unchanged Misc Prescription (Handicap Placard) See instructions Expires in 5 years Unchanged Misc Prescription (Handicap Placard, 5 years.) See instructions Weakness generalized Handicap Placard, 5 years. Unchanged Misc Prescription ([place]) See instructions To be used with giving insulin three times Dx: E11.9 Unchanged Misc Prescription (pen needles) See instructions BD UF maida pen needle 4mm x 32g E11.9 Allergies niacin (Unknown) Problems Ongoing - Any problem that you are currently receiving treatment for. BMI 32.0-32.9,adult CAD in [place] artery Chronic combined systolic (congestive) and diastolic [...] signed up for this yet, please contact Kahub at [phone] to get signed up today. Language Information [place] (more content not included)...[facility] Medicine Office/Clinic Noteon 17-04-7385Zrtttw Medicine Office/Clinic NoteFacape cod hospital Medicine Office/Clinic Note Chief Complaint Review labs The patient presents for a review of lab results and management of chronic conditions. [facility] Staff Pt presents today for 1m A1C recheck. Patient is here for follow up on Diabetes. How often are you checking your blood sugars? _ daily What are your average readings? _all over the place. Paresthesias, Ulcerations or sores? no Lisinopril, aspirin, statin therapy? Yes Foot Exam: due Eye Exam: Last A1c: 08/24/24- 7.3 Pt did have annual labs done 08/24/24 @ [facility]. 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 History of Present Illness 89-year-old male presenting with his nephew for a review of lab results and management of chronic conditions. He has a history of chronic kidney disease, stage 3a, with a current glomerular filtration rate of 50, which has shown a gradual decline from previous values of 60 and 49. The patient has not seen a substation operator transforming and is considering whether to consult one [...] stage 3a) - Consider referral to a substation operator transforming for further evaluation and management. - Discuss potential adjustment of diuretic medication with gas leak inspector to reduce renal strain. 4. Nonsmoker (Z78.9: Other specified health status) Encouraged to continue as a non-smoker 5. Obesity (BMI 30-39.9) (E66.9: Obesity, unspecified) - Encourage increased physical activity to improve HDL cholesterol levels. 6. BMI 32.0-32.9,adult (Z68.32: Body mass index [BMI] 32.0-32.9, adult) BMI 32.3 Reviewed laboratory test ordered by gas leak inspector with patient and nephew; Encouraged to f/u with cardiology Total time spent preparing the chart, conducting of the encounter with the patient and family and time spent documenting, reviewing, and ordering tests was 30 minutes. 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 [...] Hypertension Hypokalemia Kidney disease (more content not included)...[facility] HospitalComment on above: Result Comment: Electronically Signed By: GIRISH BECKER CNP\.br\Date and Time Signed: 09/12/24 12:11 EDTOrders Onlyon [id number] [id number] Zaira Segura III 1935 M Date Provider Department Center 09/06/2024 [id number], CHANG [place] Family History Problem Relation Age of Onset Other Father Heart failure Sister Family Status - Relation Status Age at Father SisterNormalUniCleveland ClinicOffice Visiton [id number]- up [id number] Zaira Segura III 1935 M Date Provider Department Center 08/24/2024 [id number] ELLIOTT Family History Problem Relation Age of Onset Other Father Heart failure Sister Family Status - Relation Status Age at Father Sister Level of Service:53067 [place] OFFICE/OUTPATIENT ESTABLISHED MOD MDM 30 [facility] Medicine Office/Clinic Noteon [id number] Medicine Office/Clinic NoteFamily Medicine Office/Clinic Note Chief Complaint 3 month [...] 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 [...] insufficiency Weakness generalized Hist (more content not included)...[facility] HospitalComment on above:Result Comment: Electronically Signed By: GIRISH BECKER CNP A\.jeet\Date and Time Signed: 08/07/24 15:25 EDTReminderson [id number] From: Dipesh PABLO, Gilson Jackson To: FMB [...] 22.7 % (14.0 - 50.0) 06/04/2024 13:23 Dubois Auto 10.3 % (4.0 - 14.0) 06/04/2024 13:23 Eos Auto 6.6 % (0.0 - 8.0) 06/04/2024 13:23 Basophil Auto 0.5 % (0.0 - 2.0) 06/04/2024 13:23 Neutro Absolute 3.7 E9/L (2.0 - 7.5) 06/04/2024 13:23 Lymph Absolute 1.4 E9/L (1.0 - 4.0) 06/04/2024 13:23 Dubois Absolute 0.6 E9/L (0.2 - 1.0) 06/04/2024 [...] to sent to him. Sent to current address.[facility] HospitalAmbulatory Visit Summaryon 06-04-2024 Ambulatory Visit SummaryAmbulatory Visit Summary ZAIRA SEGURA III :1935 Visit Date:06/04/2024 Ambulatory Visit Instructions Your Diagnosis Paroxysmal A-fib BMI 33.0-33.9,adult Nonsmoker Obesity (BMI 30-39.9) HTN (hypertension) CAD in [place] artery Type 2 diabetes mellitus with hyperglycemia Your Care Team Attending Physician - Gilson Salgado MD Primary Care Physician - Gilson Salgado MD This Is Your Medications List Misc Prescription (BD UF MAIDA PEN NEEDLE [id number]) Misc Prescription (Handicap Placard) Misc Prescription (Handicap Placard, 5 years.) Misc Prescription ([place]) Misc Prescription (pen needles) apixaban (Eliquis 5 [...] Follow-Up Appointments 2024 2:30 PM EST Where: [address] [address]- Medications What How Much When Why Instructions [...] ER Tab) TAKE 1 TABLET BY MOUTH EVERYMORNING. DO NOT CRUSH OR CHEW Unchanged losartan (losartan 50 mg Tab) See instructions TAKE 1/ 2 TABLET BY MOUTH TWICE A DAY Unchanged metoprolol (Metoprolol tartrate 50 mg Tab) 2 Tablets By Mouth 2 times a day Unchanged Misc Prescription (BD UF MAIDA PEN NEEDLE [id number]) USE 3 TIMES DAILY WITH INSULIN Unchanged Misc Prescription (Handicap Placard) See instructions Expires in 5 years Unchanged Misc Prescription (Handicap Placard, 5 years.) See instructions Weakness generalized Handicap Placard, 5 years. Unchanged Misc Prescription ([place]) See instructions To be used with giving insulin three times Dx: E11.9 Unchanged Misc Prescription (pen needles) See instructions BD UF maida pen needle 4mm x 32g E11.9 Allergies niacin (Unknown) Problems Ongoing - Any problem that you are currently receiving treatment for. 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 [facility] w/ Auto Diffon 06-04-2024 Basophils/100 WBC (Bld)0.5 %Normal0.0-2.0[facility] CenterComment on above:Performed By: #### [id number] #### [facility] [address], [place] [address]Izeeqrkqx/Leukocytes Auto (Bld) [Pure # fraction]0.0 E9/LNormal 0.0-0.2FTriHealth Good Samaritan HospitalComment on above:Performed By: #### [id number] #### [facility] [address], [place] [address]Mtrzchdvlfc (Bld) [#/Vol]0.4 E9/LNormal0.0-0.5FTriHealth Good Samaritan HospitalComment on above:Performed By: #### [id number] #### [facility] [address], [place] [address]Yiggsyxgerq/100 WBC (Bld)6.6 %Normal0.0-8.0[facility] CenterComment on above:Performed By: #### [id number] #### [facility] [address], [place] [address]Okusdwbsmac distribution width (RBC) [Ratio]13.3 %Normal 10.9-14.2FTriHealth Good Samaritan HospitalComment on above:Performed By: #### [id number] #### [facility] [address] [place] [address]Roxawjaskr (Bld) [Volume fraction]41.1 %Eotfvi58.7-49.0[facility] CenterComment on above:Performed By: #### [id number] #### [facility] [address] [place] [address]Gwajpunffq (Bld) [Mass/Vol]14.0 g/lCNyvacj96.5-17.5FTriHealth Good Samaritan HospitalComment on above:Performed By: #### [id number] #### [facility] [address] [place] [address]Hlattpckriw (Bld) [#/Vol]1.4 E9/LNormal1.0-4.0[facility] CenterComment on above:Performed By: #### [id number] #### [facility] [address] [place] [address]Fmlzwpwzsfm/100 WBC (Bld)22.7 %Xhoqfx99.0-50.0[facility] CenterComment on above:Performed By: #### [id number] #### [facility] [address] [place] [address]TUD (RBC) [Entitic mass]30.1 fkVhtzek17.0-34.0[facility] CenterComment on above:Performed By: #### [id number] #### [facility] [address] [place] [address]FHSL (RBC) [Mass/Vol]34.1 g/hFXqwxub84.4-36.0[facility] CenterComment on above:Performed By: #### [id number] #### [facility] [address] [place] [address]MBO (RBC) [Entitic vol]88.4 dULeriht67.0-100.0[facility] CenterComment on above:Performed By: #### [id number] #### [facility] [address] [place] [address]Mmigetebc (Bld) [#/Vol]0.6 E9/LNormal0.2-1.0[facility] CenterComment on above:Performed By: #### [id number] #### [facility] [address] [place] [address]Sznmqerhykx (Bld) [#/Vol]3.7 E9/LNormal2.0-7.5FTriHealth Good Samaritan HospitalComment on above:Performed By: #### [id number] #### [facility] [address] [place] [address]Mfmlatisrnk/100 WBC (Bld)59.9 %Xrbbit60.0-75.0[facility] CenterComment on above:Performed By: #### [id number] #### [facility] [address] [place] [address]Zqxodokc mean volume (Bld) [Entitic vol]9.1 fLNormal6.4-10.8 [facility] CenterComment on above:Performed By: #### [id number] #### [facility] [address] [place] [address]Edtosdfnd (Bld) [#/Vol]147.0 E9/BYfs217.0-500.0[facility] CenterComment on above:Performed By: #### [id number] #### [facility] [address] [place] [address]VSU (Bld) [#/Vol]4.7 E12/LNormal4.3-5.9[facility] CenterComment on above:Performed By: #### [id number] #### [facility] [address] [place] [address]SMF corrected for nucl RBC Auto (Bld) [#/Vol]6.2 E9/LNormal 4.0-11.0Fisher Tre Medical CenterComment on above:Performed By: #### [id number] #### [facility] [address] [place] [address] [place], [place] [address]IRJGUHKRDNeucmah By: SYSTEM SYSTEM on 65-98-4796Jdbgoae [Mass/Vol]4.0 g/dLNormal3.3 - 5.0 gm/dLRemisol ChemAlbumin DL <= 20 mg/L (U) [Mass/Vol]3.4 mg/dLHigh0.0 - 1.9 mg/dLRemisol ChemAlbumin/Creatinine DL <= 20 mg/L (U) [Mass ratio]61.8 mg/gm CrHigh0.0 - 30.0 mg/gm CrRemisol ChemComment on above:Interpretive Data: 30-300 mg/g Cr indicates an increased risk for diabetic nephropathy. >300 mg/g Cr is consistent with clinical nephropathy.Albumin/Globulin [Mass ratio]1.5 {ratio}Normal1.1 - 2.2Remisol ChemALP [Catalytic activity/Vol]46 [iU]/xWvghcv09 - 98 Int._Unit/LRemisol ChemALT No additional P-5'-P [Catalytic activity/Vol]13 [iU]/dNormal6 - 46 Int._Unit/LRemisol ChemAnion gap [Moles/Vol]9 mmol/LNormal6 - 16 mEq/LRemisol ChemAST [Catalytic activity/Vol]20 [iU]/dNormal 5 - 43 Int._Unit/LRemisol ChemBilirubin [Mass/Vol]0.8 mg/dLNormal0.0 - 1.1 mg/dL Remisol ChemCalcium [Mass/Vol]9.0 mg/dLNormal8.9 - 11.1 mg/dLRemisol Chem Chloride [Moles/Vol]104 mmol/UCothmh408 - 111 mmol/LRemisol ChemCO2 [Moles/Vol] 31 mmol/EGwqczj69 - 31 mmol/LRemisol ChemCreatinine [Mass/Vol]1.4 mg/dLHigh0.5 - 1.3 mg/dLRemisol ZgnfvOYB31 mL/min/1.73 m2Low>=59mL/min/1.73 t1Wwuoozo Chem Globulin (S) [Mass/Vol]2.7 g/dLNormal1.4 - 4.0 gm/dLRemisol ChemGlucose [Mass/Vol]121 mg/eZVvoxxm81 - 199 mg/dLRemisol ChemPotassium [Moles/Vol]3.7 mmol/LNormal3.5 - 5.3 mmol/LRemisol ChemProtein [Mass/Vol]6.7 g/dLNormal6.0 - 7.8 gm/dLRemisol ChemSodium [Moles/Vol]140 mmol/IBiwepu343 - 145 mmol/LRemisol ChemU Sbwvzevqyh08.0 mg/dLInvalid Interpretation CodeRemisol ChemUrea nitrogen [Mass/Vol]28 mg/dLHigh5 - 21 mg/dLRemisol ChemUrea nitrogen/Creatinine [Mass ratio]20 mg/mfNfefvn18 - 20Remisol ChemCHEMISTRYOrdered By: Melany Saldana on 02-81-2790AiQ2z (Bld) [Mass fraction]8.2 %High<=5.9%[facility] ChemAutoSSCMPon 08-16-6617Icoxokn [Mass/Vol]4.0 g/dLNormal3.3-5.0[facility] Comment on above:Performed By: #### [id number] #### [facility] [address], [place] [address]Lqdryma/Globulin (S) [Mass conc ratio]1.7Kubnvm7.1-2.2FTriHealth Good Samaritan HospitalComment on above:Performed By: #### [id number] #### [facility] [address], [place] [address]TFX [Catalytic activity/Vol]46 Int._Unit/FDjckll11-21YgzisrWexner Medical CenterComment on above:Performed By: #### [id number] #### [facility] [address], [place] [address]PFI No additional P-5'-P [Catalytic activity/Vol]13 Int._Unit/L Normal6-46[facility] Medical CenterComment on above:Performed By: #### [id number] #### [facility] [address], [place] [address]Iinpd gap [Moles/Vol]9 mmol/LNormal6-16[facility] Medical CenterComment on above:Performed By: #### [id number] #### [facility] [address], [place] [address]LPC [Catalytic activity/Vol]20 Int._Unit/LNormal5-43[facility] Medical CenterComment on above:Performed By: #### [id number] #### [facility] [address], [place] [address]Eekwwuhtn [Mass/Vol]0.8 mg/dLNormal0.0-1.1FTriHealth Good Samaritan HospitalComment on above:Performed By: #### [id number] #### [facility] [address], [place] [address]Imtpaqy [Mass/Vol]9.0 mg/dLNormal8.9-11.1FTriHealth Good Samaritan HospitalComment on above:Performed By: #### [id number] #### [facility] [address], [place] [address]Snqgbqfn [Moles/Vol]104 mmol/GNpebaj717-061YruwacWexner Medical CenterComment on above:Performed By: #### [id number] #### [facility] [address] [place] [address]AN4 [Moles/Vol]31 mmol/JHskvlg63-20YnnwgtWexner Medical Center Comment on above:Performed By: #### [id number] #### [facility] [address], [place] [address]Rqyduaqhmp [Mass/Vol]1.4 mg/dLHigh0.5-1.3FTriHealth Good Samaritan HospitalComment on above:Performed By: #### [id number] #### [facility] [address], [place] [address]Ecgagjot (S) [Mass/Vol]2.7 g/dLNormal1.4-4.0[facility] Medical CenterComment on above:Performed By: #### [id number] #### [facility] [address], [place] [address]Mjhlikv [Mass/Vol]121 mg/lHQthvup87-012ZrgfsdWexner Medical CenterComment on above:Performed By: #### [id number] #### [facility] [address], [place] [address]Nonpcxayh [Moles/Vol]3.7 mmol/LNormal3.5-5.3FTriHealth Good Samaritan HospitalComment on above:Performed By: #### [id number] #### [facility] [address], [place] [address]Ahhvgff [Mass/Vol]6.7 g/dLNormal6.0-7.8[facility] Medical CenterComment on above:Performed By: #### [id number] #### [facility] [address], [place] [address]Umgbqw [Moles/Vol]140 mmol/QIiipoh941-214RmgldnWexner Medical CenterComment on above:Performed By: #### [id number] #### [facility] [address], [place] [address]Moyp nitrogen [Mass/Vol]28 mg/dLHigh5-21[facility] Medical CenterComment on above:Performed By: #### [id number] #### [facility] [address], [place] [address]Hmwq nitrogen/Creatinine [Mass ratio]20 No FbjpyDjpbly03-35 [facility] Medical CenterComment on above:Performed By: #### [id number] #### [facility] [address], [place] [address]Lbmnbr Medicine Office/Clinic Noteon 90-67-8193Srwkge Medicine Office/Clinic NoteFami Medicine Office/Clinic Note Chief Complaint 3m follow [...] (08/02/23 11:03:00) Referred to wound care @ [facility] @ [facility]. Pt states he does not recollect this. Questions/Concerns: Needs Humalog refill-[facility] [place] History of Present Illness - The patient is an 89-year-old male presenting with chest pain and blood sugar management issues. - Nighttime chest soreness primarily on the left side, alleviated by positional changes. - Long-standing paroxysmal atrial fibrillation and coronary artery disease; has not seen gas leak inspector Dr. Mcbride for months. - Significant hyperglycemic episodes with dietary challenges noted as a cause. - Darken wounds on the legs observed, oozing slightly, yet improving without immediate intervention. - Discussed dietary influences on blood sugar control, emphasizing the effects of high carbohydrateintake from Kiswahili fries and applesauce. - Reviewed necessity of [...] level of consciousness appropriate for age, CN II- XII intact, motor strength equal & normal bilaterally, speech normal Abdomen: Soft, Non-tender, Non-distended, + Bowel sounds Assessment/Plan 1. Paroxysmal A-fib (I48.0: Paroxysmal atrial fibrillation) Afib today. Continue on meds. Follow up with Cardiology Ordered: CBC w/ Auto Diff Comprehensive Metabolic Panel HgbA1c Microalbumin Level Urine Urine Microalbumin/Creatinine Ratio 2. BMI 33.0-33.9,adult (Z68.33: Body mass index [BMI] 33.0-33.9, adult) - Address weight management. Ordered: CBC w/ Auto Diff Comprehensive Metabolic Panel HgbA1c Microalbumin Level Urine Urine Microalbumin/Creatinine Ratio 3. Nonsmoker (Z78.9: Other specified health status) Please continue to not smoke Ordered: CBC w/ Auto Diff Comprehensive Metabolic Panel HgbA1c Microalbumin Level Urine Urine Microalbumin/Creatinine Ratio 4. Obesity (BMI 30-39.9) (E66.9: Obesity, [...] 130-139 mm Hg (Most Recent) 3075F Urine Microalbumin/Creatinine Ratio 5. HTN (hypertension) (I10: Essential (primary) hypertension) Ordered: CBC w/ Auto Diff Comprehensive Metabolic Panel HgbA1c Microalbumin Level Urine Urine Microalbumin/Creatinine Ratio 6. CAD in [place] artery (I25.10: Atherosclerotic heart disease of [place] coronary artery without angina pectoris) - Monitor symptoms, follow up with gas leak inspector if needed. Ordered: CBC w/ Auto Diff Comprehensive Metabolic Panel HgbA1c Microalbumin Level Urine Urine Microalbumin/Creatinine Ratio 7. Type 2 diabetes mellitus with hyperglycemia (E11.65: Type 2 diabetes mellitus with hyperg (more content not included)...[facility] Comment on above:Result Comment: Electronically Signed By: Dipesh PABLO, Gilson Russo.br\Date and Time Signed: 06/04/24 13:12 EDTHEMATOLOGYOrdered By: SYSTEM SYSTEM on 34-17-3194Tpndlvfco/100 WBC (Bld)0.5 %Normal0.0 - 2.0 %Remisol Heme Basophils/Leukocytes Auto (Bld) [Pure # fraction]0.0 E9/LNormal0.0 - 0.2 E9/L Remisol HemeEosinophils (Bld) [#/Vol]0.4 E9/LNormal0.0 - 0.5 E9/LRemisol Heme Eosinophils/100 WBC (Bld)6.6 %Normal0.0 - 8.0 %Remisol HemeErythrocyte distribution width (RBC) [Ratio]13.3 %Ihvyhh17.9 - 14.2 %Remisol HemeHematocrit (Bld) [Volume fraction]41.1 %Efonmb88.7 - 49.0 %Remisol HemeHemoglobin (Bld) [Mass/Vol]14.0 g/tFKpmkuc08.5 - 17.5 gm/dLRemisol HemeLymphocytes (Bld) [#/Vol] 1.4 E9/LNormal1.0 - 4.0 E9/LRemisol HemeLymphocytes/100 WBC (Bld)22.7 %Normal 14.0 - 50.0 %Remisol HemeMCH (RBC) [Entitic mass]30.1 zvOrgmms84.0 - 34.0 pg Remisol HemeMCHC (RBC) [Mass/Vol]34.1 g/cFRefrwf93.4 - 36.0 gm/dLRemisol HemeMCV (RBC) [Entitic vol]88.4 iETtpwlw78.0 - 100.0 fLRemisol HemeMonocytes (Bld) [#/Vol]0.6 E9/LNormal0.2 - 1.0 E9/LRemisol HemeMonocytes/100 WBC (Bld)10.3 % Normal4.0 - 14.0 %Remisol HemeNeutrophils (Bld) [#/Vol]3.7 E9/LNormal2.0 - 7.5 E9/LRemisol HemeNeutrophils/100 WBC (Bld)59.9 %Tucrrg89.0 - 75.0 %Remisol Heme Platelet mean volume (Bld) [Entitic vol]9.1 fLNormal6.4 - 10.8 fLRemisol Heme Platelets (Bld) [#/Vol]147.0 E9/KSva848.0 - 500.0 E9/LRemisol HemeRBC (Bld) [#/Vol]4.7 E12/LNormal4.3 - 5.9 E12/LRemisol HemeWBC corrected for nucl RBC Auto (Bld) [#/Vol]6.2 E9/LNormal4.0 - 11.0 E9/LRemisol KeoaNfmA8uml 13-96-0957CqB4d (Bld) [Mass fraction]8.2 %High<=5.9[facility] Medical CenterComment on above: Performed By: #### [id number] #### [facility] [address], [place] [address]X MA/Cr Ratioon 33-19-8140Yhlwpjw DL <= 20 mg/L (U) [Mass/Vol] 3.4 mg/dLHigh0.0-1.9[facility] CenterComment on above:Performed By: #### [id number] #### [facility] [address], [place] [address]Jbjyknt/Creatinine DL <= 20 mg/L (U) [Mass ratio]61.8 mg/gm Cr High.0-30.0[facility] Medical CenterComment on above:Result Comment: 30-300 mg/g Cr indicates an increased risk for diabetic nephropathy. >300 mg/g Cr is consistent with clinical nephropathy.Performed By: #### [id number] #### [facility] [address], [place] [address]E Wuuqinmmdf28.0 mg/dLInvalid Interpretation CodeWexner Medical CenterComment on above:Performed By: #### [id number] #### [facility] [address], [place] [address]iTSGya 45-46-1456vUKY93 mL/min/1.73 m2Low>=59W[facility] Medical CenterComment on above:Performed By: #### [id number] #### [facility] [address], [place] [address]Lzrfpizjkv Visit Summaryon 08-01-4417Jfifwlluws Visit Summary Ambulatory Visit Summary ZAIRA SEGURA [...] Misc Prescription (BD UF MAIDA PEN NEEDLE [id number]) Misc Prescription (Handicap Placard) Misc Prescription (Handicap Placard, 5 years.) Misc Prescription ([place]) Misc Prescription (pen needles) apixaban (Eliquis 5 [...] EDT With: Dipesh PABLO, Gilson Jackson Where: [address] [address] 2:30 PM EST With: Where: [address] [address]- Medications What How Much When Why Instructions [...] ER Tab) TAKE 1 TABLET BY MOUTH EVERYMORNING. DO NOT CRUSH OR CHEW Unchanged losartan (losartan 50 mg Tab) See instructions TAKE 1/ 2 TABLET BY MOUTH TWICE A DAY Unchanged metoprolol (Metoprolol tartrate 50 mg Tab) 2 Tablets By Mouth 2 times a day Unchanged Misc Prescription (BD UF MAIDA PEN NEEDLE [id number]) USE 3 TIMES DAILY WITH INSULIN Unchanged Misc Prescription (Handicap Placard) See instructions Expires in 5 years Unchanged Misc Prescription (Handicap Placard, 5 years.) See instructions Weakness generalized Handicap Placard, 5 years. Unchanged Misc Prescription ([place]) See instructions To be used with giving insulin three times Dx: E11.9 Unchanged Misc Prescription (pen needles) See instructions BD UF maida pen needle 4mm x 32g E11.9 Allergies niacin (Unknown) Problems Ongoing - Any problem that you are currently receiving treatment for. 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 [facility] Medicine Office/Clinic Noteon 51-22-1257Fhihxb Medicine Office/Clinic NoteFacape cod hospital Medicine Office/Clinic Note Chief Complaint 6m follow [...] 2 diabetes mellitus with hyperglycemia. The patient reportshis skin as frail, with occasional dryness and flakiness, which he attributes to water pill usage, but notes no current signs of oozing or open wounds. He uses a gentle washing routine to manage skinconcerns and has a history of peripheral vascular disease, often experiencing dry or callused skin.He notes well-controlled morning blood sugars, generally within the 100s, but mentions evening readings sometimes reaching into the 200s, with occasional spikes to 300. The patient uses sliding-scaleinsulin management, particularly during the day. He describes occasional nightmares, suspected to be linked to low blood sugar episodes. Nighttime blood sugar dips into the 70s have been managed withapple and peanut butter snacks before bed. The patient's blood pressure, previously at hypertensivelevels, was stable during the visit. He requires routine lab tests, including an HbA1c, for ongoingdiabetes management and CKD monitoring. - Blood pressure [...] level of consciousness appropriate for age, CN II- XII intact, motor strength equal & normal bilaterally, speech normal Abdomen: Soft, Non-tender, Non-distended, + Bowel sounds Assessment/Plan 1. Type 2 diabetes mellitus with hyperlipidemia (E11.69: Type 2 diabetes mellitus with other specified complication) Screen lipid profile periodically and advise on dietary measures to enhance lipid control. BS needsto be rechecked today. Ordered: A1c POC [id number] 2. Type 2 diabetes mellitus with peripheral vascular disease (E11.51: Type 2 diabetes mellitus withdiabetic peripheral angiopathy without gangrene) Continued diabetes control is pertinent to mitigate associated vascular complications. Advise regular foot care due to noted skin issues. 3. 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 Continued monitoring and routine laboratory evaluations, including kidney function tests, are advised. 4. 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 Salgado. During a pre-visit planning chart review, I noted the following documentation in the medical recordindicates this patient has been diagnosed as having: Open wound of LLE (Unspecified open wound, left lower leg, initial encounter). ??? The following is also documented in the medical record: 07/13/2023 [facility] ED Note (page 2): 08/08/2023 Office Visit Note: Open wound of left lower extremity (S81.112A: Unspecified open wound,left lower leg, initial encounter) - Wound is [...] feel free to contact me at extension [phone]. Thank you! Tanya Mena LPN Clinical Internet Network Specialist [place] [address] Extension: [phone] [email or web address] From: Dipesh PABLO, Gilson Jackson To: Tanya Mena; Cc: Danna WINCHESTER MD; Sent: 03/05/2024 07:55:44 EST Subject: RE: Pre-Visit Planning Caller Name: ZAIRA SEGURA III; Caller Number: H Since that was 6 months ago I cannot answer this question. Thanks No open wound. So this can be resolved. 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 Type 2 diabetes mellitus with hyperglycemia, without long-term current use of insulin HTN (hypertension) Immunization declined Obesity due to excess calories Your Care Team Attending Physician - Gilson Salgado MD Primary Care Physician - Gilson Salgado MD This Is Your Medications List Misc Prescription (BD UF MAIDA PEN NEEDLE [id number]) Misc Prescription (Handicap Placard) Misc Prescription (Handicap Placard, 5 years.) Misc Prescription ([place]) Misc Prescription (pen needles) apixaban (Eliquis 5 [...] PM EST With: Gilson Salgado MD Where: [address] [address] 2024 2:30 PM EST With: Where: [address] [address]- Medications What How Much When [...] ER Tab) TAKE 1 TABLET BY MOUTH EVERYMORNING. DO NOT CRUSH OR CHEW Unchanged losartan (losartan 50 mg Tab) See instructions TAKE 1/ 2 TABLET BY MOUTH TWICE A DAY Unchanged metoprolol (Metoprolol tartrate 50 mg Tab) 2 Tablets By Mouth 2 times a day Unchanged Misc Prescription (BD UF MAIDA PEN NEEDLE [id number]) USE 3 TIMES DAILY WITH INSULIN Unchanged Misc Prescription (Handicap Placard) See instructions Expires in 5 years Unchanged Misc Prescription (Handicap Placard, 5 years.) See instructions Weakness generalized Handicap Placard, 5 years. Unchanged Misc Prescription ([place]) See instructions To be used with giving insulin three times Dx: E11.9 Unchanged Misc Prescription (pen needles) See instructions BD UF maida pen needle 4mm x 32g E11.9 Allergies niacin (Unknown) Problems Ongoing - Any problem that you are currently receiving treatment for. BMI 32.0-32.9,adult CAD in [place] artery Chronic combined systolic (congestive) and diastolic [...] means that your w (more content not included)...[facility] Medicine Office/Clinic Noteon [id number] Medicine Office/Clinic NoteFami Medicine Office/Clinic Note Chief Complaint Subsequent Medicare [...] Vision Screen Comments : no corrective lens. Michael Zeinab Shrestha - 12/15/2023 14:41 EST Advance Directive FT Advance Directive : Yes Type of Advance Directive : Living will, Medical durable power of litigation attorney Location of Advance Directive : Family to bring in copy from home Organ Donation Consent : No Michael Zeinab Shrestha - 12/15/2023 14:41 EST Procedures / Surgeries FT - Procedure History (As Of: 12/15/2023 15:00:07 EST) Anesthesia Minutes: 0 ; Procedure Name: Angioplasty ; Procedure Minutes: 0 ; Comments: 04/23/2022 11:38 EDT - Daxa Hammer Rt leg 2020 ; Last Reviewed Dt/Tm: 12/15/2023 14:45:01 EST Anesthesia Minutes: 0 ; Procedure Name: Stent ; Procedure Minutes: 0 ; Comments: 04/23/2022 11:38 EDT - Daxa Hammer Rt Leg 2020 ; Last Reviewed Dt/Tm: [...] Procedure Minutes: 0 ; Comments: 04/20/2023 7:56 Tricia Malhotra LPN 2022 ; Last Reviewed Dt/Tm: 12/15/2023 [...] Rodriguez: denies use. 11/19/2022 8:54 - Shaun Adame:denies (Last Updated: 12/15/2023 14:45:40 EST by Zeinab [...] 12/15/2023 14:41 EST Confident (more content not included)...[facility]zer HospitalComment on above:Result Comment: Electronically Signed By: Gilson Salgado MD\.br\Date and Time Signed: 12/19/23 13:18 EST\.br\Electronically Co-Signed By: Zeinab Rodriguez\.br\Date and Time Co-Signed: 12/15/23 15:44 ESTAmbulatory Visit Summaryon [id number] Visit SummaryAmbulatory Visit Summary ZAIRA SEGURA III :1935 Visit Date:11/01/2023 Ambulatory Visit Instructions Your Diagnosis HTN (hypertension) Stage 3a chronic kidney disease (CKD) Type 2 diabetes mellitus with hyperglycemia, without long-term current use of insulin BMI 32.0-32.9,adult Class 1 obesity due to excess calories in adult Nonsmoker Paroxysmal A-fib CAD in [place] artery Your Care Team Attending Physician - Gilson Salgado MD Primary Care Physician - Gilson Salgado MD This Is Your Medications List Contact prescribing physician if questions or concerns Misc Prescription (BD UF MAIDA PEN NEEDLE [id number]) Misc Prescription (Handicap Placard) Misc Prescription (Handicap Placard, 5 years.) Misc Prescription ([place]) Misc Prescription (pen needles) apixaban (Eliquis 5 [...] Appointments Tuesday 1:00 PM EDT With: Where: [address] [id number]- 2024 1:00 PM EST With: Gilson Salgado MD Where: [address] [address]- Medications What How Much When Why Instructions [...] ER Tab) TAKE 1 TABLET BY MOUTH EVERYMORNING. DO NOT CRUSH OR CHEW Contact prescribing [...] Misc Prescription (BD UF MAIDA PEN NEEDLE [id number]) USE 3 TIMES DAILY WITH INSULIN Contact prescribing physician if questions or concerns Unchanged Misc Prescription (Handicap Placard) See instructions Expires in 5 years Contact prescribing physician if questions or concerns Unchanged Misc Prescription (Handicap Placard, 5 years.) See instructions Weakness generalized Handicap Placard, 5 years. Contact prescribing physician if questions or concerns Unchanged Misc Prescription ([place]) See instructions To be used with giving insulin three times Dx: E11.9 Contact prescribing physician if questions or concerns Unchanged Misc Prescription (pen needles) See instructions BD UF maida pen needle 4mm x 32g E11.9 Contact prescribing physician if questions or concerns Allergies niacin (Unknown) Problems Ongoing - Any problem that you are currently receiving treatment for. 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 CAD in [place] artery (I25.10: Atherosclerotic heart disease of [place] coronary artery without angina pectoris) - NO CP today. Patient states the reason why they increased his metoprolol was because he was complaining of chestpain at night. Patient states it was when he was lying down. Patient denies acid reflux. I believe it may be acid reflux causing the chest pain. 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 Medications BD UF MAIDA PEN NEEDLE [id number] Eliquis 5 mg oral tablet, 5 mg= [...] pen needles, See Instructions, 2 refills [place], See Instructions, 1 refills Allergies niacin (Unknown) [...] 20-valent conjugate vaccine 01/04/2022 Recorded SARS-CoV-2 (COVID-19) mRNAMUL.ORD![id number] 01/04/2022 Recorded SARS-CoV-2 (COVID-19) mRNA BNT-162b2 vax 12/08/2020 Recorded 2022-04-19: [id number] SARS-CoV-2 (COVID-19) mRNA BNT-162b2 vax 06/04/2020 Recorded SARS-CoV-2 (COVID-19) mRNA BNT-162b2 vax 05/14/2020 RecordedHolzer HospitalComment on above:Result Comment: Electronically Signed By: Gilson Salgado MD\.br\Date and Time Signed: 08/08/23 15:36 EDTAmbulatory Visit Summaryon [id number] Visit Summary ZAIRA SEGURA III :1935 Visit [...] Misc Prescription (BD UF MAIDA PEN NEEDLE [id number]) Misc Prescription (Handicap Placard) Misc Prescription (Handicap Placard, 5 years.) Misc Prescription ([place]) Misc Prescription (pen needles) apixaban (Eliquis 5 [...] EDT With: Dipesh PABLO, Gilson Jackson Where: [place] [phone]- \.br\ Medications\.br\ What How Much When Why Instructions\.br\ Unchanged insulin lispro (HumaLOG KwikPen 100 units/ mL injectable solution) See instructions USE DIRECTED *MAX OF 10 UNITS/ DAY * BEFOR MEALS AND BEDTIME Pickup at [facility]/pharmacy #[id number]\.br\ Unchanged apixaban (Eliquis 5 mg oral tablet) 1 Tablets By Mouth 2 times a day Contact p rescribing physician if questions or concerns \.br\ Unchanged [...] By Mouth 2 times a day Contact pr escribing physician if questions or concerns \.br\ Unchanged Misc Prescription (BD UF MAIDA PEN NEEDLE [id number]) USE 3 TIMES DAILY WITH INSULIN Contact prescribing physician if questions or concerns \.br\ Unchanged Misc Prescription (Handicap Placard) See instructions Expires in 5 years Contact prescribing physician if questions or concerns \.br\ Unchanged Misc Prescription (Handicap Placard, 5 years.) See instructions Weakness generalized Handicap Placard, 5 years. Contact prescribing physician if questions or concerns \.br\ Unchanged Misc Prescription ([place]) See instructions To be usedwith giving insulin three times Dx: E11.9 Contact prescribing physician if questions or concerns \.b r\ Unchanged Misc Prescription (pen needles) See instructions BD UF maida pen needle 4mm x 32g E11.9Contact prescribing physician if questions or concerns \.br\ Pharmacy Information\.br\ [facility]/pharmacy#[id number]: [address], [place] [phone]\.br\ Allergies\.br\ niacin (Unknown)\.br\ Problems\.br\ Ongoing - Any problem that you are currently receiving treatment for.\.br\ CAD in [place] artery\.br\ Chronic combined systolic (congestive) and diastolic (congestive) heart failure\.br\ Chronic venous hypertension\.br\ HTN (hypertension)\.br\ Long-term insulin use\.br\ Mixed hyperlipidemia\.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\.br\ Open wound of left lower extremity\.br\ Paroxysmal A-fib\.br\ Peripheral vascular disease\.br\ Stage 3a chronic kidney disease (CKD)\.br\ Type 2 diabetes mellitus with hyperglycemia, without long-term current use of insulin\.br\ Type 2 diabetes mellitus with stage 3a chronic kidney disease, with long-term current use of insulin\.br\ Vascular insufficiency\.br\ Weakness generalized\.br\ Historical - Any problem that you are no longer receiving treatment for.\.br\ Atrial flutter\.br\ Heart disease\.br\ HTN - Hypertension\.br\ Hypokalemia\.br\ Kidney disease\.br\ Overweight\.br\ Type II diabetes mellitus uncontrolled\.br\ Patient Survey\.br\ You may receive a survey via text or e-mail asking about your office visit. Please share your experience with us by completing your survey. We appreciate your feedback and thank you for choosing us for your care.\.br\ \.br\[facility]exner Medical CenterCHEMISTRYOrdered By: SYSTEM SYSTEM on 24-47-7612Pburpjy [Mass/Vol]4.0 g/dLNormal3.3 - 5.0 gm/dLRemisol Chem Albumin/Globulin [Mass ratio]1.3 {ratio}Normal1.1 - 2.2Remisol ChemALP [Catalytic activity/Vol]50 [iU]/mDwankq25 - 98 Int._Unit/LRemisol ChemALT No additional P-5'-P [Catalytic activity/Vol]17 [iU]/dNormal6 - 46 Int._Unit/L Remisol ChemAnion gap [Moles/Vol]9 mmol/LNormal6 - 16 mEq/LRemisol ChemAST [Catalytic activity/Vol]24 [iU]/dNormal5 - 43 Int._Unit/LRemisol ChemBilirubin [Mass/Vol]0.9 mg/dLNormal0.0 - 1.1 mg/dLRemisol ChemCalcium [Mass/Vol]9.1 mg/dL Normal8.9 - 11.1 mg/dLRemisol ChemChloride [Moles/Vol]105 mmol/WWnshbb490 - 111 mmol/LRemisol ChemCO2 [Moles/Vol]32 mmol/LHigh21 - 31 mmol/LRemisol Chem Creatinine [Mass/Vol]1.4 mg/dLHigh0.5 - 1.3 mg/dLRemisol NjrjpDZR49 mL/min/1.73 m2Low>=59mL/min/1.73 t4Wnrwrkc ChemGlobulin (S) [Mass/Vol]3.0 g/dLNormal1.4 - 4.0 gm/dLRemisol ChemGlucose [Mass/Vol]61 mg/bJUjpbqy19 - 199 mg/dLRemisol Chem Potassium [Moles/Vol]4.0 mmol/LNormal3.5 - 5.3 mmol/LRemisol ChemProtein [Mass/Vol]7.0 g/dLNormal6.0 - 7.8 gm/dLRemisol ChemSodium [Moles/Vol]142 mmol/L Ohbqor701 - 145 mmol/LRemisol ChemUrea nitrogen [Mass/Vol]28 mg/dLHigh5 - 21 mg/dLRemisol ChemUrea nitrogen/Creatinine [Mass ratio]20 mg/gaRhemfp85 - 20 Remisol ChemCMPon 97-42-2307Xzytbqj [Mass/Vol]4.0 g/dLNormal3.3-5.0Wexner Medical CenterComment on above:Performed By: #### [id number] #### [facility] [address] [place] [address]Kknyvob/Globulin (S) [Mass conc ratio]1.5Vwzivb9.1-2.2FTriHealth Good Samaritan HospitalComment on above:Performed By: #### [id number] #### [facility] [address], [place] [address]TPJ [Catalytic activity/Vol]50 Int._Unit/IWzgwik95-85PihmpoWexner Medical CenterComment on above:Performed By: #### [id number] #### [facility] [address], [place] [address]GIF No additional P-5'-P [Catalytic activity/Vol]17 Int._Unit/L Normal6-46W[facility]ner Medical CenterComment on above:Performed By: #### [id number] #### [facility] [address], [place] [address]Cwpwz gap [Moles/Vol]9 mmol/LNormal6-16[facility]ner Medical CenterComment on above:Performed By: #### [id number] #### [facility] [address], [place] [address]NGP [Catalytic activity/Vol]24 Int._Unit/LNormal5-43W[facility] Medical CenterComment on above:Performed By: #### [id number] #### [facility] [address], [place] [address]Kdpnhtwgu [Mass/Vol]0.9 mg/dLNormal0.0-1.1FTriHealth Good Samaritan HospitalComment on above:Performed By: #### [id number] #### [facility] [address], [place] [address]Iqhndmw [Mass/Vol]9.1 mg/dLNormal8.9-11.1FTriHealth Good Samaritan HospitalComment on above:Performed By: #### [id number] #### [facility] [address], [place] [address]Tgffruzb [Moles/Vol]105 mmol/CLynsrh548-513EfmkntWexner Medical CenterComment on above:Performed By: #### [id number] #### [facility] [address], [place] [address]BU9 [Moles/Vol]32 mmol/COimg34-45VvjbvoWexner Medical Center Comment on above:Performed By: #### [id number] #### [facility] [address], [place] [address]Yevmchoffw [Mass/Vol]1.4 mg/dLHigh0.5-1.3FTriHealth Good Samaritan HospitalComment on above:Performed By: #### [id number] #### [facility] [address], [place] [address]Fbpbevvc (S) [Mass/Vol]3.0 g/dLNormal1.4-4.0[facility] Medical CenterComment on above:Performed By: #### [id number] #### [facility] [address], [place] [address]Hdpiwbc [Mass/Vol]61 mg/wIPzsjys74-883WdbhqwWexner Medical CenterComment on above:Performed By: #### [id number] #### [facility] [address], [place] [address]Dhhilkkba [Moles/Vol]4.0 mmol/LNormal3.5-5.3FTriHealth Good Samaritan HospitalComment on above:Performed By: #### [id number] #### [facility] [address], [place] [address]Hpmznju [Mass/Vol]7.0 g/dLNormal6.0-7.8[facility] Medical CenterComment on above:Performed By: #### [id number] #### [facility] [address], [place] [address]Hqhqdq [Moles/Vol]142 mmol/SEwfxnx900-624IpgkxgWexner Medical CenterComment on above:Performed By: #### [id number] #### [facility] [address], [place] [address]Jbgh nitrogen [Mass/Vol]28 mg/dLHigh5-21[facility]ner Medical CenterComment on above:Performed By: #### [id number] #### [facility] [address], [place] [address]Esbs nitrogen/Creatinine [Mass ratio]20 No EyctzIrgaxh38-78 [facility] Medical CenterComment on above:Performed By: #### [id number] #### [facility] [address], [place] [address]Tpqovjiujj Visit Summaryon 41-49-4681Yxujfbjknv Visit Summary ZAIRA SEGURA III :1935 Visit Date:07/25/2023 Ambulatory Visit Instructions Your Diagnosis Open wound of left lower extremity, subsequent encounter Chronic combined systolic (congestive) and diastolic (congestive) heart failure Type 2 diabetes mellitus with stage 3a chronic kidney disease, with long-term current use of insulin 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 BMI 33.0-33.9,adult Class 1 obesity due to excess calories in adult Nonsmoker Your Care Team Attending Physician - Gilson Salgado MD Primary Care Physician - Gilson Salgado MD This Is Your Medications List Misc Prescription (BD UF MAIDA PEN NEEDLE [id number]) Misc Prescription (Handicap Placannette) Misc Prescription (Handicap Placard, 5 years.) Misc Prescription ([place]) [facility] Prescription (pen needles) apixaban (Eliquis 5 mg [...] EDT With: Dipesh PABLO, Gilson Jackson Where: [facility] [place] [address] \.br\ Medications\.br\ What How Much When Why Instructions\.br\ Unchanged apixaban (Eliquis 5 mg oral tablet) [...] BY MOUTH EVERY MORNING. DO NOT CRUSH ORCHEW \.br\ Unchanged isosorbide mononitrate (isosorbide mononitrate 30 mg ER Tab) 1 Tablets By Mouth Once a day (in the morning)\.br\ Unchanged losartan (losartan 50 mg Tab) See instructions TAKE 1 TA BLET BY MOUTH TWICE A DAY \.br\ Unchanged metoprolol (Metoprolol tartrate 50 mg Tab) 1 Tablets By Mouth 2 times a day\.br\ Unchanged Misc Prescription (BD UF MAIDA PEN NEEDLE [id number]) USE 3 TIMES DAILY WITH INSULIN \.br\ Unchanged Misc Prescription (Handicap Placard) See instructions Expires in 5 years \.br\ Unchanged Misc Prescription (Handicap Placard, 5 years.) See instructions Weakness generalized Handicap Placard, 5 years. 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\.br\ Open wound of left lower extremity\.br\ Paroxysmal A-fib\.br\ Peripheral vascular disease\.br\ Stage 3a chronic kidney disease (CKD)\.br\ Type 2 diabetes mellitus with hyperglycemia, without long-term current use of insulin\.br\ Type 2diabetes mellitus with stage 3a chronic kidney disease, with long-term current use of insulin\.br\ Vascular insufficiency\.br\ Weakness generalized\.br\ Historical - Any problem that you are no longer receiving treatment for.\.br\ Atrial flutter\.br\ Heart disease\.br\ HTN - Hypertension\.br\ Hypokalemia\.br\ Kidney disease\.br\ Overweight\.br\ Type II diabetes mellitus uncontrolled\.br\ Patient Survey\.br\ You may receive a survey via text or e-mail asking about your office visit. Please shareyour experience with us by completing your survey. We appreciate your feedback and thank you for choosing us for your care.\.br\ \.br\[facility] Medicine Office/Clinic Noteon 28-89-5175Shwwkg Medicine Office/Clinic NoteHPI Staff Zaira is an 88 year old male presenting for face to face for home health for dressing changes. [facility] [phone] Had a paramed visit and he wasn't [...] extremity, subsequent encounter (S81.802D: Unspecified open wound, leftlower leg, subsequent encounter) - Improving. - Continue [...] (congestive) and diastolic (congestive) heart failure (I50.42: Chroniccombined systolic (congestive) and diastolic (congestive) heart failure) [...] noncompliant Ordered: Ambulatory Home Health Orders 4. 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 Pt is aware and rolled his eyes. I removed the patient from by practice over 2 years ago for the same behavior. 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 Open (more content not included)...[facility]zer HospitalComment on above:Result Comment: Electronically Signed By: Dipseh PABLO, Gilson Jackson\.br\Date and Time Signed: 07/25/23 14:46 EDTED Note-Physicianon [id number] Note-Physician [id number]#1.00[facility] DaytonPhysician Referralon 26-52-4324Kdwpsrwzz Referral [id number]#1.00[facility] Medicine Office/Clinic Noteon 43-23-4955Ddzyvr Medicine Office/Clinic NoteChief Complaint wound HPI Staff Zaira is a 88 year old male presenting for Er follow up ER followup: Hospital: [facility] Visit date:07/13/23 Symptoms the patient presented with:wound/laceration- dressing change- had maggots on wound, took [...] he had covered it with a bandage andthen 4 days later when he uncovered it there were maggots at the bottom of the wound. He went to [facility] ED because of this. He reports he [...] covered with a dry dressing Referral to for dressing changes completed Encouraged to f/u with Dr Salgado for questions about his diabetic medications Continue the ATB as ordered by the ED. Encouraged to keep the appointment as scheduled with Dr. Salgado Ordered: [facility] External Ambulatory Referral 2. BMI 33.0-33.9,adult (Z68.33: Body mass index [BMI] 33.0-33.9, adult) The standard range for ages 18 and older is >=18.5 and < 25 kg/m2. Your BMI today was above this range, this falls in the overweight to obese category and there are medical benefits to weight loss. We can offer counselling, referral, and/or medical support in addressing this problem. 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 Medications BD UF MAIDA PEN NEEDLE [id number] cephalexin 500 mg Cap Eliqui (more content not included)...[facility]zer HospitalComment on above:Result Comment: Electronically Signed By: GIRISH BECKER CNP\romie\Date and Time Signed: 07/19/23 11:24 EDTPatient Educationon 91-32-2474Ejbhodo EducationDermatology Wound Care, Adult Taking care of your [...] and water are not available, use hand client operations manager. ? Change your dressing as told [...] by your health care provider. ? Take xklw-aii-jqiatkd and prescription medicines only as told by your health care provider. Eating and drinking ? Eat a diet that includes protein, vitamin A, vitamin C, and other nutrient- rich foods to help thewound heal. ? Foods rich in protein include [...] hospital. Summary ? Alway (more content not included)...[facility] Ambulatory Visit Summaryon [id number] Visit Summary ZAIRA SEGURA III :1935 Visit Date:05/02/2023 Ambulatory Visit Instructions Your Diagnosis BMI 33.0-33.9,adult Your Care Team Attending Physician - Gilson Salgado MD Primary Care Physician - Gilson Salgado MD This Is Your Medications List Misc Prescription (BD UF MAIDA PEN NEEDLE [id number]) Misc Prescription (Handicap Placard) Misc Prescription (Handicap Placard, 5 years.) Misc Prescription ([place]) Misc Prescription (pen needles) apixaban (Eliquis 5 [...] AM EDT With: Gilson Salgado MD Where: [facility] [address] [address]- \.br\ Medications\.br\ What How Much When Why Instructions\.br\ Unchanged apixaban (Eliquis 5 mg oral tablet) [...] DIRECTED *MAX OF 10 UNITS/ DAY * BEFORMEALS AND BEDTIME \.br\ Unchanged isosorbide mononitrate (isosorbide mononitrate 30 mg ER Tab) 1 Tablets By Mouth Once a day (in the morning)\.br\ Unchanged losartan (losartan 50 mg Tab) See instructions TAKE 1 TABLET BY MOUTH TWICE A DAY \.br\ Unchanged metoprolol (Metoprolol tartrate 50 mg Tab) 1Tablets By Mouth 2 times a day\.br\ Unchanged Misc Prescription (BD UF MAIDA PEN NEEDLE [id number]) USE3 TIMES DAILY WITH INSULIN \.br\ Unchanged Misc Prescription (Handicap Placard) See instructions Expires in 5 years \.br\ Unchanged Misc Prescription (Handicap Placard, 5 years.) See instructions Weakness generalized Handicap Placard, 5 years. 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 Please share your experience with us by completing your survey. We appreciate your feedback and thank you for choosing us for your care.\.br\ \.br\[facility] Medicine Office/Clinic Noteon 34-53-1529Tdvaty Medicine Office/Clinic NoteChief Complaint test results HPI Staff Zaira is an 88 year old male presenting for follow up after labs, A1C too high Recently seen to have his form for the BMV filled out. Patient's nephew brought patient to appointment. 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 [...] Will monitor 3. 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 Medications BD UF MAIDA PEN NEEDLE [id number] Eliquis 5 mg oral tablet, 5 mg= [...] pen needles, See Instructions, 1 refills [place], See Instructions, 1 refills Allergies niacin (Unknown) [...] 20-valent conjugate vaccine 01/04/2022 Recorded SARS-CoV-2 (COVID-19) mRNAMUL.ORD![id number] 01/04/2022 Recorded SARS-CoV-2 (COVID-19) mRNA BNT-162b2 vax 12/08/2020 Recorded 2022-04-19: TPV80 SARS-CoV-2 (COVID-19) mRNA BNT-162b2 vax 06/04/2020 Recorded SARS-CoV-2 (COVID-19) mRNA BNT-162b2 vax 05/14/2020 RecordedHolzer HospitalComment on above:Result Comment: Electronically Signed By: Dipesh PABLO, Gilson Russo.br\Date and Time Signed: 05/02/23 11:53 EDTPatient Educationon 90-67-9014Udtzxzi EducationNutrition BMI for Adults What is BMI? Body mass index (BMI) is a number that is calculated from a person's weight and height. BMI can help estimate how much of a person's weight is composed of fat. BMI does not measure body fat directly.Rather, it is an alternative to procedures that [...] your height. Both height and weight are measured,and the BMI is calculated from those numbers. This can be done either in French (U.S.) or metric measurements. Note that charts and online BMI calculators are available to help you find your BMI quickly and easily without having to do these calculations yourself. To calculate your BMI in French (U.S.) measurements: 1. Measure your weight in [...] meters squared number. In this example: 70 ?3.1 = 22.6. This is your BMI. What [...] for Disease Control and Prevention: www.cdc.gov ? [place] Heart Association: www.heart.org ? National Heart, Lung, and Blood [place]: www.nhlbi.nih.gov Summary ? Body mass index (BMI) is a number that is calculated from a person's weight and height. ? BMI may help estimate how much of a person's weight is composed of fat. BMI can help identify those who may be at higher risk for certain medical problems. ? BMI can be measured using French measurements or metric measurements. ? BMI charts are used to identify whether you are underweight, normal weight, overweight, or obese. This information is not intended to replace advice given to you by your health care provider. Make sure you discuss any questions you have with your health care provider. Document Revised: 10/17/2019 Document Reviewed: 08/24/2019 NGI Patient Education ? 2022 [employer].[facility] Pre-Visit Planningon 34-04-4004Fdn-Visit Planning From: Tanya Mena To: Gilson Salgado MD; Sent: 04/29/2023 11:00:44 EDT Subject: Pre-Visit Planning Due Date/Time: 04/29/2023 11:00:00 EDT Caller Name: ARELI GARCIA ZAIRA; Caller Number: H Dc Dr. Salgado. 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 Current Medication List: Eliquis, metoprolol, spironolactone, aspirin, isosorbide mononitrate, and losartan. Signify Health Facesheet: Acute on chronic systolic (congestive) heart failure per Dr. Tara Montesidated 10/19/2022, Chronic systolic (congestive) heart failure per [...] feel free to contact me at extension [phone]. Thank you! Tanya Mena LPN From: Dipesh PABLO, Gilson Jackson To: Tanya Mena; Sent: 05/02/2023 12:26:37 EDT Subject: RE: Pre-Visit Planning Caller Name: ZAIRA SEGURA III; Caller Number: H Chronic combined systolic (congestive) and diastolic (congestive) heart failure Please [id number] [facility] CenterHgbA1con 45-33-4385JiA8h (Bld) [Mass fraction]8.6 %High<=5.9[facility] Comment on above:Performed By: #### [id number], 3501304, [id number], 00856792, 8560935 ####[facility] [address] [place], [place] [address]Q Microalbon 92-25-3925Ftzmjgl DL <= 20 mg/L (U) [Mass/Vol]5.1 mg/dLHigh 0.0-1.9[facility] CenterComment on above:Performed By: #### [id number], [id number] ####[facility] [address] [place], [place] [address]V Protein/Creat Ratioon 33-92-3565Tbdbvzk/Creatinine (U) [Ratio]24.80 mg/gm CrNormal.00-200.00[facility] CenterComment on above:Performed By: #### [id number], [id number] ####[facility] [address] [place], [place] [address]U Wpaugqjaly77.4 mg/dLInvalid Interpretation CodeWexner Medical CenterComment on above:Performed By: #### [id number], [id number] ####[facility] [address] [place], [place] [address]Xa Total Ranzncn58.5 mg/dLInvalid Interpretation CodeWexner Medical CenterComment on above:Performed By: #### [id number], [id number] ####[facility] [address] [place] [address] Ambulatory Visit Summaryon 87-68-2643Wigkabcuae Visit Summary ZAIRA SEGURA III :1935 Visit [...] Misc Prescription (BD UF MAIDA PEN NEEDLE [id number]) Misc Prescription (Handicap Placard) Misc Prescription (Handicap Placard, 5 years.) Misc Prescription ([place]) Misc Prescription (pen needles) apixaban (Eliquis 5 [...] EDT With: Dipesh PABLO, Gilson Jackson Where: [place] [id number]- \.br\ Medications\.br\ What How Much When Why Instructions\.br\ Unchanged apixaban (Eliquis 5 mg oral tablet) [...] Misc Prescription (BD UF MAIDA PEN NEEDLE [id number]) USE 3 TIMES DAILY WITH INSULIN Contact [...] or concerns \.br\ Unchanged Misc Prescription ([place]) See instructions To be used with giving insulin three times Dx: E11.9 Contact prescribing physician if questions or concerns \.br\ Allergies\.br\ niacin (Unknown)\.br\ Problems\.br\ Ongoing - Anyproblem that you are currently receiving treatment for.\.br\ CAD in [place] artery\.br\ Chronic venous hypertension\.br\ HTN (hypertension)\.br\ Long-term insulin use\.br\ Mixed hyperlipidemia\.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 Please share your experience with us by completing your survey. We appreciate your feedback and thank you forchoosing us for your care.\.br\ Education Materials\.br\ BMI for Adults\.br\ What is BMI?\.br\ Bodymass index (BMI) is a number that is calculated from a person's weight and height. BMI can help kana mate how much of a person's weight is [...] is obese, overweight, a healthy weight, or underweight.\.br\ BMI is useful for:\.br\ ? \.br\ Identifying [...] numbers. This can be done either in French (U.S.) or metric measurements. Note that charts and on [employer] BMI calculators are available to help you find your BMI quickly and easily without having to dothese calculations yourself.\.br\ To calculate your BMI in French (U.S.) measurements:\.br\ [ImageRemoved]\.br\ 1. \.br\ Measure your weight in pounds [...] 703) by the total from step 3 (inchessquared): 126,540 ? 4,900 = 25.8. This is your BMI.\.br\ To calculate your BMI in metric measurements:\.br\ 1. \.br\ Measure your weight in kilograms (kg).\.br\ 2. \.br\ Measure your height in meters(m). Then multiply that number by itself to get a measurement called meters squared. \.br\ ? \.br\For example, for a person who is 1.75 [...] an athlete, may have a BMI that ishigher than 24.9. In cases like these, BMI is not an accurate measure of body fat.\.br\ ? \.br\ To d etermine if excess body fat is the cause [...] Disease Control and Prevention: www.cdc.gov\.br\ ? \.br\ [place] Heart Association: www.heart.org\.br\ ? \.br\ National Heart, Lung, and Blood [place]: www.nhlbi.nih.gov\.br\ Summary\.br\ ? \.br\ Body mass index (BMI) susanna number that is calculated from a person's weight and height.\.br\ ? \.br\ BMI may help estimate how much of a person's weight is composed of fat. BMI can help identify those who may be at higher risk for certain medical problems.\.br\ ? \.br\ BMI can be measured using French measurements or metric measurements.\.br\ ? \.br\ BMI charts are used to identify whether you are underweight, normal weight, overweight, or obese.[facility] w/ Auto Diffon 04-20-2023 Basophils/100 WBC (Bld)0.5 %Normal0.0-2.0[facility] CenterComment on above:Performed By: #### 1738757, 1099636, 614740395, 39737191, 5367044 ####[address] [address] Basophils/Leukocytes Auto (Bld) [Pure # fraction]0.0 E9/LNormal0.0-0.2FTriHealth Good Samaritan HospitalComment on above:Performed By: #### 7517821, 8107242, 323696059, 32677578, 5511099 ####[address] [address]Mzovhvecsbo (Bld) [#/Vol]0.5 E9/LNormal0.0-0.5 [facility] CenterComment on above:Performed By: #### 0196682, 3490276, 290523241, 14711836, 9212169 ####[address] [address]Meuxnsorrfk/100 WBC (Bld)7.1 %Normal0.0-8.0[facility] CenterComment on above:Performed By: #### 5938272, 3978991, 271763776, 89141684, 8505144 ####[address] [address]Btxzyytxyjn distribution width (RBC) [Ratio]13.5 % Fcpvnc07.9-14.2FTriHealth Good Samaritan HospitalComment on above:Performed By: #### 5023546, 3547144, 910338396, 83239536, 7518435 ####[facility] [address] [place] [address]Oojafkwakq (Bld) [Volume fraction] 43.3 %Xuydpb08.7-49.0[facility] CenterComment on above:Performed By: #### 0893767, 2086822, 000419499, 07329855, 8504640 ####[address] [address]Iolxkwcrxv (Bld) [Mass/Vol] 14.2 g/yOOeeunp12.5-17.5FTriHealth Good Samaritan HospitalComment on above:Performed By: #### 5194065, 3661161, 120898251, 83430242, 4255509 ####[address] [address]Nodmkjtbtkl (Bld) [#/Vol]1.7 E9/LNormal1.0-4.0[facility] CenterComment on above:Performed By: #### 7907462, 6807613, 043174277, 72390716, 0187041 ####[address] [address]Geghhondpje/100 WBC (Bld)24.2 %Normal 14.0-50.0[facility] CenterComment on above:Performed By: #### 9415414, 1825008, 275783643, 03005897, 9021707 ####[address] [address]GGH (RBC) [Entitic mass]29.4 pgNormal 27.0-34.0[facility] CenterComment on above:Performed By: #### 6579185, 8521444, 723424270, 25245888, 6665452 ####[address] [address]RBKW (RBC) [Mass/Vol]32.7 g/dLNormal 31.4-36.0[facility] CenterComment on above:Performed By: #### 9502461, 2418076, 191749163, 00786580, 2110593 ####[address] [address]IEU (RBC) [Entitic vol]90.0 fLNormal 80.0-100.0[facility] CenterComment on above:Performed By: #### 8859352, 4804979, 215709866, 14283731, 2701411 ####[address] [address]Alvkaggkh (Bld) [#/Vol]0.8 E9/LNormal 0.2-1.0[facility] CenterComment on above:Performed By: #### 1204605, 2545736, 507566772, 94994545, 2072195 ####[address] [address]Xlaywtgpqgc (Bld) [#/Vol]3.9 E9/LNormal 2.0-7.5FTriHealth Good Samaritan HospitalComment on above:Performed By: #### 1039433, 7492122, 638619733, 17817223, 2831938 ####[address] [address]Idhgsnwbahb/100 WBC (Bld)57.0 %Normal 36.0-75.0[facility] CenterComment on above:Performed By: #### 3973651, 4023016, 590268718, 53397792, 0083794 ####[address] [address]Vdmltggn mean volume (Bld) [Entitic vol]9.3 fLNormal6.4-10.8[facility] CenterComment on above:Performed By: #### 1332533, 4594900, 781885571, 21109517, 3573636 ####[address] [address]Vayhhjccp (Bld) [#/Vol]144.0 E9/AIfr541.0-500.0[facility] Tre Medical CenterComment on above:Performed By: #### 3010043, 3082633, 634772198, 82288238, 4344105 ####[facility] [address] [place], [place] [address]UQX (Bld) [#/Vol]4.8 E12/LNormal 4.3-5.9[facility] CenterComment on above:Performed By: #### 2601552, 3815991, 025198282, 43303561, 3951570 ####[facility] [address] [place], [place] [address]KTE corrected for nucl RBC Auto (Bld) [#/Vol]6.9 E9/LNormal4.0-11.0[facility] CenterComment on above: Performed By: #### 6844959, 5369168, 777866048, 96998390, 9623816 ####[facility] [address] [place], [place] [address]YJIMNIUVZBvbvyqs By: SYSTEM SYSTEM on 36-17-7726Liemugu [Mass/Vol]4.2 g/dLNormal3.3 - 5.0 gm/dL Remisol ChemAlbumin/Globulin [Mass ratio]1.6 {ratio}Normal1.1 - 2.2Remisol Chem ALP [Catalytic activity/Vol]50 [iU]/xBsnrcl99 - 98 Int._Unit/LRemisol ChemALT No additional P-5'-P [Catalytic activity/Vol]15 [iU]/dNormal6 - 46 Int._Unit/L Remisol ChemAnion gap [Moles/Vol]9 mmol/LNormal6 - 16 mEq/LRemisol ChemAST [Catalytic activity/Vol]18 [iU]/dNormal5 - 43 Int._Unit/LRemisol ChemBilirubin [Mass/Vol]0.7 mg/dLNormal0.0 - 1.1 mg/dLRemisol ChemCalcium [Mass/Vol]9.1 mg/dL Normal8.9 - 11.1 mg/dLRemisol ChemChloride [Moles/Vol]105 mmol/ZSnsjcl684 - 111 mmol/LRemisol ChemCholesterol [Mass/Vol]74 mg/wAXnu128 - 200 mg/dLRemisol Chem Cholesterol in HDL [Mass/Vol]27 mg/dLInvalid Interpretation CodeRemisol Chem Comment on above:Result Comment: '>= 60 LOW RISK' '<= 40 HIGH RISK'Cholesterol in LDL [Mass/Vol]37 mg/dLNormal<=129mg/dLRemisol ChemCholesterol in VLDL [Mass/Vol]13 mg/dLNormal7 - 40 mg/dLRemisol ChemCO2 [Moles/Vol]31 mmol/XPchdgv37 - 31 mmol/LRemisol ChemCreatinine [Mass/Vol]1.5 mg/dLHigh0.5 - 1.3 mg/dLRemisol VmdliOFW28 mL/min/1.73 m2Low>=59mL/min/1.73 m2 Remisol ChemGlobulin (S) [Mass/Vol]2.7 g/dLNormal1.4 - 4.0 gm/dLRemisol Chem Glucose [Mass/Vol]87 mg/uTIxdtni84 - 199 mg/dLRemisol ChemPotassium [Moles/Vol] 4.2 mmol/LNormal3.5 - 5.3 mmol/LRemisol ChemProtein [Mass/Vol]6.9 g/dLNormal6.0 - 7.8 gm/dLRemisol ChemSodium [Moles/Vol]141 mmol/WYrfkcl286 - 145 mmol/LRemisol ChemTriglyceride [Mass/Vol]65 mg/dLNormal<=149mg/dLRemisol ChemUrea nitrogen [Mass/Vol]27 mg/dLHigh5 - 21 mg/dLRemisol ChemUrea nitrogen/Creatinine [Mass ratio]18 mg/ezOqxtze38 - 20Remisol ChemCMPon 55-52-1105Guhwosu [Mass/Vol]4.2 g/dLNormal3.3-5.0[facility] CenterComment on above:Performed By: #### 0631211, 4742470, 393566844, 49628022, 7073252 ####[facility] [address] [place], [place] [address]Qljowfz/Globulin (S) [Mass conc ratio]1.4Autcjy5.1-2.2FTriHealth Good Samaritan HospitalComment on above:Performed By: #### 7468769, 1952249, 364009006, 20159557, 6351530 ####[place] [address] [place], [place] [address]SBC [Catalytic activity/Vol]50 Int._Unit/STuliwj56-46YefgaoWexner Medical CenterComment on above:Performed By: #### 4345481, 1880228, 128518918, 78019837, 7629883 ####[address] [address]NKT No additional P-5'-P [Catalytic activity/Vol]15 Int._Unit/LNormal6-46[facility] Comment on above:Performed By: #### 7536754, 8707435, 143207568, 26040147, 0882794 ####[address] [address]Bwvxq gap [Moles/Vol]9 mmol/LNormal6-16[facility] CenterComment on above:Performed By: #### 9144400, 7436431, 705900242, 80424165, 8349878 ####[address] [address]MAP [Catalytic activity/Vol]18 Int._Unit/LNormal5-43[facility] Comment on above:Performed By: #### 3359813, 1258566, 400072818, 06593104, 2976720 ####[address] [address]Owjdteyhd [Mass/Vol]0.7 mg/dLNormal0.0-1.1FT[facility] Comment on above:Performed By: #### 6012839, 9800691, 473797662, 11348824, 0158369 ####[address] [address]Ehcsqwd [Mass/Vol]9.1 mg/dLNormal8.9-11.1FTriHealth Good Samaritan HospitalComment on above:Performed By: #### 9309186, 9978493, 069512718, 72915206, 3470475 ####[facility] [address] [place] [address] Chloride [Moles/Vol]105 mmol/CRvqonw468-473KbaagnWexner Medical CenterComment on above:Performed By: #### 9485307, 6766085, 622015911, 04952278, 0333245 ####[address] [address]ME5 [Moles/Vol]31 mmol/UTexsrz55-83JzkdrkWexner Medical CenterComment on above: Performed By: #### 7514808, 7318176, 274805597, 87411865, 9706633 ####[address] [address]Lxpglhcdlp [Mass/Vol]1.5 mg/dLHigh0.5-1.3FTriHealth Good Samaritan HospitalComment on above: Performed By: #### 9770706, 9238245, 884704245, 04526851, 6270757 ####[address] [address]Cngrftyc (S) [Mass/Vol]2.7 g/dLNormal1.4-4.0[facility] CenterComment on above: Performed By: #### 6617116, 5432366, 823325829, 61508560, 9292604 ####[facility] [address] [place], [place] [address]Vwbbgmc [Mass/Vol]87 mg/xXOaqkji76-497DekhxaWexner Medical CenterComment on above: Performed By: #### 4637307, 0403019, 098862645, 96412476, 0767667 ####[facility] [address] [place] [address]Jhkxgscgy [Moles/Vol]4.2 mmol/LNormal3.5-5.3FTriHealth Good Samaritan HospitalComment on above: Performed By: #### 6850345, 4519434, 770193791, 94365257, 2926122 ####[facility] [address] [place], [place] [address]Dcogdzv [Mass/Vol]6.9 g/dLNormal6.0-7.8[facility] CenterComment on above: Performed By: #### 2111231, 0154911, 877012025, 38058952, 8189353 ####[facility] [address] [place], [place] [address]Sxqoky [Moles/Vol]141 mmol/EQxecho874-403KdenbjWexner Medical CenterComment on above: Performed By: #### 0056999, 8601883, 163302628, 75397028, 7814998 ####[facility] [address] [place], [place] [address]Pbuo nitrogen [Mass/Vol]27 mg/dLHigh5-21[facility] Medical CenterComment on above:Performed By: #### 5560586, 8239818, 831491521, 27903962, 2105506 ####[facility] [address] [place], [place] [address]Mrvy nitrogen/Creatinine [Mass ratio]18 No MlbohUsplzq70-96DedyegWexner Medical CenterComment on above: Performed By: #### 2379519, 5087878, 927927737, 41514330, 1753672 ####[facility] [address] [place], [place] [address]Gteawq Medicine Office/Clinic Noteon 35-07-4690Flpfcp Medicine Office/Clinic NoteHPI Staff Zaira is an 87 year old [...] BS Assessment/Plan 1. 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) - Concern that [...] BP <130 mm Hg (more content not included)...NormalWexner Medical CenterComment on above:Result Comment: Electronically Signed By: Dipesh PABLO, Gilson Felton\Date and Time Signed: 04/20/23 08:35 EDTFormson 22-44-2154Rhnnj [id number]#1.00TIFFNormalWexner Medical CenterHEMATOLOGYOrdered By: SYSTEM SYSTEM on 94-27-1070Fppjfdxmg/100 WBC (Bld) 0.5 %Normal0.0 - 2.0 %Remisol HemeBasophils/Leukocytes Auto (Bld) [Pure # fraction]0.0 E9/LNormal0.0 - 0.2 E9/LRemisol HemeEosinophils (Bld) [#/Vol]0.5 E9/LNormal0.0 - 0.5 E9/LRemisol HemeEosinophils/100 WBC (Bld)7.1 %Normal0.0 - 8.0 %Remisol HemeErythrocyte distribution width (RBC) [Ratio]13.5 %Oovzaa38.9 - 14.2 %Remisol HemeHematocrit (Bld) [Volume fraction]43.3 %Salzdu89.7 - 49.0 % Remisol HemeHemoglobin (Bld) [Mass/Vol]14.2 g/kOElqhdh92.5 - 17.5 gm/dLRemisol HemeLymphocytes (Bld) [#/Vol]1.7 E9/LNormal1.0 - 4.0 E9/LRemisol Heme Lymphocytes/100 WBC (Bld)24.2 %Olvcud83.0 - 50.0 %Remisol HemeMCH (RBC) [Entitic mass]29.4 rqCzvyil25.0 - 34.0 pgRemisol HemeMCHC (RBC) [Mass/Vol]32.7 g/dL Yeyzhq67.4 - 36.0 gm/dLRemisol HemeMCV (RBC) [Entitic vol]90.0 mHUwrjig22.0 - 100.0 fLRemisol HemeMonocytes (Bld) [#/Vol]0.8 E9/LNormal0.2 - 1.0 E9/LRemisol HemeMonocytes/100 WBC (Bld)11.2 %Normal4.0 - 14.0 %Remisol HemeNeutrophils (Bld) [#/Vol]3.9 E9/LNormal2.0 - 7.5 E9/LRemisol HemeNeutrophils/100 WBC (Bld)57.0 % Asbbdw26.0 - 75.0 %Remisol HemePlatelet mean volume (Bld) [Entitic vol]9.3 fL Normal6.4 - 10.8 fLRemisol HemePlatelets (Bld) [#/Vol]144.0 E9/OZrf461.0 - 500.0 E9/LRemisol HemeRBC (Bld) [#/Vol]4.8 E12/LNormal4.3 - 5.9 E12/LRemisol HemeWBC corrected for nucl RBC Auto (Bld) [#/Vol]6.9 E9/LNormal4.0 - 11.0 E9/LRemisol HemeLipid Panelon 94-65-0656Xqrjwjnvxpj [Mass/Vol]74 mg/tLZmr852-902VtrripWexner Medical CenterComment on above:Performed By: #### 1041241, 4376874, 571380566, 55840809, 2033375 ####[facility] [address], [place] [address]Tvtejzwbedo in HDL [Mass/Vol]27 mg/dLInvalid Interpretation CodeWexner Medical CenterComment on above:Result Comment: '>= 60 LOW RISK' '<= 40 HIGH RISK'Performed By: #### 4359904, 3515128, 828906322, 92592226, 6106158 ####[facility] [address], [place] [address]Uuomvorylfy in LDL [Mass/Vol]37 mg/dLNormal<=129Wexner [facility] Comment on above:Performed By: #### [id number], [id number], [id number], [id number], [id number] ####[facility] [address], [place] [address]Okxwocjtmec in VLDL [Mass/Vol]13 mg/dLNormal7-40[facility] Comment on above:Performed By: #### [id number], [id number], [id number], [id number], [id number] ####[facility] [address] [place], [place] [address]Dsdhqsllwygc [Mass/Vol]65 mg/dLNormal<=149[facility] Comment on above:Performed By: #### [id number], [id number], [id number], [id number], [id number] ####[facility] [address] [place], [place] [address]Iaefgvc Educationon 74-15-6214Kifyqpz EducationNutrition BMI for Adults What is BMI? Body mass index (BMI) is a number that is calculated from a person's weight and height. BMI can help estimate how much of a person's weight is composed of fat. BMI does not measure body fat directly.Rather, it is an alternative to procedures that [...] your height. Both height and weight are measured,and the BMI is calculated from those numbers. This can be done either in French (U.S[place] or metric measurements. Note that charts and online BMI calculators are available to help you find your BMI quickly and easily without having to do these calculations yourself. To calculate your BMI in French ([place].S.) measurements: 1. Measure your weight in [...] meters squared number. In this example: 70 ?3.1 = 22.6. This is your BMI. What [...] for Disease Control and Prevention: www.cdc.gov ? [place] [employer]: www.heart.org ? National Heart, Lung, and Blood [place]: www.nhlbi.nih.gov Summary ? Body mass index (BMI) is a number that is calculated from a person's weight and height. ? BMI may help estimate how much of a person's weight is composed of fat. BMI can help identify those who may be at higher risk for certain medical problems. ? BMI can be measured using French measurements or metric measurements. ? BMI charts are used to identify whether you are underweight, normal weight, overweight, or obese. This information is not intended to replace advice given to you by your health care provider. Make sure you discuss any questions you have with your health care provider. Document Revised: 10/17/2019 Document Reviewed: 08/24/2019 NGI Patient Education ? 2022 [employer].[facility] Pre-Visit Planningon [id number]-Visit Planning From: Tanya Mena To: Gilson Salgado MD; Sent: 04/19/2023 09:32:31 EDT Subject: Pre-Visit Planning Due Date/Time: 04/19/2023 09:32:00 EDT Caller Name: ARELI GARCIA ZAIRA; Caller Number: H Hi Dr. Salgado. During a pre-visit planning chart review, I noted the following documentation in the medical record: Signify Health Facesheet: Chronic kidney disease, stage 3, [...] feel free to contact me at extension [phone]. Thank you! Tanya Mena LPN From: Gilson Salgado MD To: Tanya Mena; Sent: 04/20/2023 14:06:08 EDT Subject: RE: Pre-Visit Planning Caller Name: ZAIRA SEGURA III; Caller Number: H Labs ordered [address]Pre-Visit Planning From: Tanya Mena To: Gilson Salgado MD; Sent: 04/19/2023 09:22:32 EDT Subject: Pre-Visit Planning Due Date/Time: 04/19/2023 09:22:00 EDT Caller Name: ZAIRA SEGURA III; Caller Number: H Dc Dr. Salgado. 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 Current Medication List: Eliquis, metoprolol, spironolactone, aspirin, isosorbide mononitrate, and losartan. Signify Health Facesheet: Acute on chronic systolic (congestive) heart failure per Dr. Tara Montesidated 10/19/2022, Chronic systolic (congestive) heart failure per [...] feel free to contact me at extension [phone]. Thank you! Tanya Mena LPN From: Gilson Salgado MD To: Tanya Mena; Sent: 04/20/2023 14:05:41 EDT Subject: RE: Pre-Visit Planning Caller Name: ZAIRA SEGURA III; Caller Number: H Digna. I missed this.Kynhzp742 [facility] From: Tanya Mena To: Gilson Salgado MD; [...] feel free to contact me at extension [phone]. Thank you! Tanya Mena LPN From: Gilson Salgado MD To: Tanya Mena; Sent: 04/20/2023 14:04:33 EDT Subject: RE: Pre-Visit Planning Caller Name: ZAIRA SEGURA III; Caller Number: H Digna. Its suppose to be type 2.Oszrbd743 [facility] CentereGFRon 54-46-6631jZXG72 mL/min/1.73 m2Low>=[address] [place] [address] Comment on above:Order Comment: Order added by Discern Expert.Performed By: #### [id number], [id number], [id number], [id number], [id number] ####[facility] [address] [place], [place] [address]Rgxe Health Records 40-61-8413Yrfg Health [id number]#1.00TIFFNormalUche [facility] Orthopaedic InstituteCHEMISTRYOrdered By: Lab ROPUser on 65-39-6039Cfcrdnp [Mass/Vol]227 mg/bQCbmw11 - 99 mg/dLFT POC SubsectionComment on above:Result Comment: Cleaned MeterPOC Device [id number] Interpretation CodeFTMC POC SubsectionPOC User [id number] Interpretation CodeFTMC POC Subsection POC UsernamKrystina Sellers Interpretation CodeFTMC POC Subsection Glucose [Mass/Vol]152 mg/eUHfdt72 - 99 mg/dLFTMC POC SubsectionComment on above: Result Comment: Cleaned MeterPOC Device [id number] Interpretation CodeFTMC POC SubsectionPOC User [id number] Interpretation CodeFTMC POC SubsectionPOC UsernamKrystina Sellers Interpretation CodeFTMC POC SubsectionMICRO OTHER TESTSOrdered By: Aurora Dugan on 44-57-4346Vpabx COV Int NEG CtlPass (04/26/22 11:03 AM)NormalFTMC Man SeroRapid COV Int POS CtlPass (04/26/22 11:03 AM)NormalFT Man SeroSARS-CoV+SARS-CoV-2 (COVID-19) Ag IA.rapid Ql (Resp)Not Detected (04/26/22 11:03 AM)NormalNot DetectedFT Man SeroCHEMISTRYOrdered By: Lab ROPUser on 00-91-6211Zroezdr [Mass/Vol]232 mg/wTSkpf15 - 99 mg/dLFTMC POC SubsectionComment on above:Result Comment: Notified RN/MDPOC Device SN [id number] Interpretation CodeFTMC POC SubsectionPOC User [id number] Invalid Interpretation CodeFTMC POC SubsectionPOC UsernamEFREN ChaparroInvalid Interpretation CodeFTMC POC SubsectionBLOOD BANKOrdered By: Daxa Gomes on 74-06-7107CEH/Rh Retype InterpPositiveInvalid Interpretation CodeFT BB SubsectionCHEMISTRYOrdered By: SYSTEM SYSTEM on 96-08-9866Hbsrc gap [Moles/Vol] 11 mmol/LNormal6 - 16 mEq/LFTMC RemisolCalcium [Mass/Vol]8.8 mg/dLLow8.9 - 11.1 mg/dLFTMC RemisolChloride [Moles/Vol]104 mmol/VSztdfp323 - 111 mmol/LFTMC RemisolCK [Catalytic activity/Vol]344 [iU]/dInvalid Interpretation Code14 - 261 Int._Unit/LFTMC RemisolComment on above:Result Comment: Critical Result verified by repeat analysis\Critical Result S_CK:344 Called to ASTRID FIGUEROA AT 3N by ILAN VALADEZ and read back for confirmation at 04/24/2022 06:42:39CO2 [Moles/Vol]27 mmol/LKukpjw86 - 31 mmol/LFTMC RemisolCreatinine [Mass/Vol]1.3 mg/dLNormal0.5 - 1.3 mg/dLFTMC RemisolGlucose [Mass/Vol]292 mg/eIQkuv60 - 199 mg/dLFTMC RemisolPotassium [Moles/Vol]4.0 mmol/LNormal3.5 - 5.3 mmol/LFTMC RemisolSodium [Moles/Vol]138 mmol/IAselly135 - 145 mmol/LFTMC RemisolTroponin I.cardiac [Mass/Vol]115.40 pg/mLInvalid Interpretation Code15.90 - 38.40 pg/mL FTMC RemisolComment on above:Result Comment: Critical Result verified by previous result\ Critical Result I_hsTnI:115.4 Called to ASTRID FIGUEROA at 3N by ILAN VALADEZ and read back for confirmation at 04/24/2022 06:42:59Urea nitrogen [Mass/Vol]26 mg/dLHigh5 - 21 mg/dLFTMC RemisolUrea nitrogen/Creatinine [Mass ratio]20 mg/cqFniney32 - 20FTMC RemisolTroponin I.cardiac [Mass/Vol]138.10 pg/mL Invalid Interpretation Code15.90 - 38.40 pg/mLFTMC RemisolComment on above: Result Comment: Critical Result verified by previous result\ Critical Result I_hsTnI:138.1 Called to ASTRID FIGUEROA at 3N by HEMANTH VENTURA and read back for confirmation at 04/24/2022 03:06:42CHEMISTRYOrdered By: Mariposa Comer on 38-75-7849WnQ2h (Bld) [Mass fraction]8.4 %High<=5.9%FTMC ChemAutoSSHEMATOLOGY Ordered By: SYSTEM SYSTEM on 52-56-3620Zpzybkomr/100 WBC (Bld)0.5 %Normal0.0 - 2.0 %FT[facility] HemeAutoSSBasophils/Leukocytes Auto (Bld) [Pure # fraction]0.0 E9/L Normal0.0 - 0.2 E9/LFTMC HemeAutoSSEosinophils/100 WBC (Bld)0.7 %Normal0.0 - 8.0 %[facility] HemeAutoSSEosinophils/Leukocytes Auto (Bld) [Pure # fraction]0.1 E9/L Normal0.0 - 0.5 E9/LFTMC HemeAutoSSLymphocytes/100 WBC (Bld)15.3 %Mqbjua63.0 - 50.0 %FT[facility] HemeAutoSSLymphocytes/Leukocytes Auto (Bld) [Pure # fraction]1.3 E9/L Normal1.0 - 4.0 E9/LFTMC HemeAutoSSMonocytes/100 WBC (Bld)13.0 %Normal4.0 - 14.0 %[facility] HemeAutoSSMonocytes/Leukocytes Auto (Bld) [Pure # fraction]1.1 E9/LHigh0.2 - 1.0 E9/LFTMC HemeAutoSSNeutrophils/100 WBC (Bld)70.5 %Ynwxll99.0 - 75.0 %[facility] HemeAutoSSNeutrophils/Leukocytes Auto (Bld) [Pure # fraction]5.8 E9/LNormal2.0 - 7.5 E9/LFTMC HemeAutoSSHEMATOLOGYOrdered By: Trina Ventura on 04-24-2022 Erythrocyte distribution width (RBC) [Ratio]13.6 %Xjdspx77.9 - 14.2 %[facility] HemeAutoSSHematocrit (Bld) [Volume fraction]39.0 %Ahuyfg43.7 - 49.0 %[facility] HemeAutoSSHemoglobin (Bld) [Mass/Vol]13.0 g/dLLow13.5 - 17.5 gm/dLFTMC HemeAutoSSMCH (RBC) [Entitic mass]29.0 poArbniq83.0 - 34.0 pgFTMC HemeAutoSSMCHC (RBC) [Mass/Vol]33.4 g/wJZtcemx52.4 - 36.0 gm/dLFTMC HemeAutoSSMCV (RBC) [Entitic vol]86.7 iHDpwyqn51.0 - 100.0 fLFTMC HemeAutoSSPlatelet mean volume (Bld) [Entitic vol]8.2 fLNormal6.4 - 10.8 fLFTMC HemeAutoSSPlatelets (Bld) [#/Vol]136.0 E9/RRht836.0 - 500.0 E9/LFTMC HemeAutoSSRBC (Bld) [#/Vol]4.5 E12/L Normal4.3 - 5.9 E12/LFTMC HemeAutoSSWBC corrected for nucl RBC Auto (Bld) [#/Vol]8.2 E9/LNormal4.0 - 11.0 E9/LFTMC HemeAutoSSBLOOD BANKOrdered By: Trina Ventura on 46-36-8514AVU/Rh InterpPositiveInvalid Interpretation CodeFTMC BB SubsectionABSC Gel InterpNegative (04/23/22 6:46 PM)NormalFTMC BB SubsectionCHEMISTRYOrdered By: SYSTEM SYSTEM on 47-10-8570Mdisqakh I.cardiac [Mass/Vol]134.80 pg/mLInvalid Interpretation Code 15.90 - 38.40 pg/mLFTMC RemisolComment on above:Result Comment: Critical Result verified by previous result\ Critical Result I_hsTnI:134.8 Called to ARUN GREENBERG at 3N by HEMANTH VENTURA and read back for confirmation at 04/24/2022 00:30:20Albumin [Mass/Vol]4.0 g/dLNormal3.3 - 5.0 gm/dLFTMC Remisol Albumin/Globulin [Mass ratio]1.1 {ratio}Normal1.1 - 2.2FTMC RemisolALP [Catalytic activity/Vol]58 [iU]/mHtawms01 - 98 Int._Unit/LFTMC RemisolALT No additional P-5'-P [Catalytic activity/Vol]24 [iU]/dNormal6 - 46 Int._Unit/LFTMC RemisolAmphetamines Screen method >1000 ng/mL Ql (U)Negative (04/23/22 6:46 PM)NormalNegativeFTMC RemisolAnion gap [Moles/Vol]14 mmol/LNormal6 - 16 mEq/LFTMC RemisolAST [Catalytic activity/Vol]31 [iU]/dNormal5 - 43 Int._Unit/LFTMC RemisolBarbiturates Screen Ql (U)Negative (04/23/22 6:46 PM)NormalNegativeFTMC RemisolBenzodiazepines Ql (U)Negative (04/23/22 6:46 PM)NormalNegativeFTMC RemisolBilirubin [Mass/Vol]0.7 mg/dLNormal 0.0 - 1.1 mg/dLFTMC RemisolBilirubin.direct [Mass/Vol]0.2 mg/dLNormal0.1 - 0.4 mg/dLFTMC RemisolBilirubin.indirect [Mass or moles/Vol]0.5 mg/dLNormal0.1 - 0.9 mg/dLFTMC RemisolCalcium [Mass/Vol]9.1 mg/dLNormal8.9 - 11.1 mg/dLFTMC Remisol Chloride [Moles/Vol]100 mmol/LKyy287 - 111 mmol/LFTMC RemisolCO2 [Moles/Vol]28 mmol/OIvwdix79 - 31 mmol/LFTMC RemisolCocaine Ql (U)Negative (04/23/22 6:46 PM)NormalNegativeFTMC RemisolCreatinine [Mass/Vol]1.6 mg/dLHigh0.5 - 1.3 mg/dLFTMC RemisolEthanol [Mass/Vol]mg/dLNormal<=7mg/dLFTMC Remisol Globulin (S) [Mass/Vol]3.5 g/dLNormal1.4 - 4.0 gm/dLFTMC RemisolGlucose [Mass/Vol]354 mg/oYLids18 - 199 mg/dLFTMC RemisolLactate [Mass/Vol]1.5 mmol/L Normal0.5 - 2.2 mmol/LFTMC RemisolLipase [Catalytic activity/Vol]27 U/UMjxsbt51 - 58 unit/LFTMC RemisolOpiates Screen Ql (U)Negative (04/23/22 6:46 PM)NormalNegativeFTMC RemisolPhencyclidine Screen method >25 ng/mL Ql (U)Negative (04/23/22 6:46 PM)NormalNegativeFTMC RemisolPotassium [Moles/Vol]4.3 mmol/LNormal 3.5 - 5.3 mmol/LFTMC RemisolProtein [Mass/Vol]7.5 g/dLNormal6.0 - 7.8 gm/dLFTMC RemisolSodium [Moles/Vol]138 mmol/ENfwukm948 - 145 mmol/LFTMC Remisol Tetrahydrocannabinol Screen method >50 ng/mL Ql (U)Negative (04/23/22 6:46 PM)NormalNegativeFTMC RemisolUrea nitrogen [Mass/Vol]29 mg/dLHigh5 - 21 mg/dLFTMC RemisolUrea nitrogen/Creatinine [Mass ratio]18 mg/qtHuynbk69 - 20FT[facility] RemisolCOAGULATIONOrdered By: Jose Almonte on 86-47-7708qOHI Coag (PPP) [Time]36.5 xMpwvpf37.1 - 36.5 second(s)FT[facility] Auto CoagINR Coag (PPP) [Relative time]1.4 {INR}Invalid Interpretation CodeFTMC Auto CoagPT Coag (PPP) [Time]16.1 sHigh9.4 - 12.5 second(s)[facility] Auto CoagHEMATOLOGYOrdered By: SYSTEM SYSTEM on 56-15-0944Rgpnlujtr/100 WBC (Bld)0.2 %Normal0.0 - 2.0 %[facility] HemeAutoSS Basophils/Leukocytes Auto (Bld) [Pure # fraction]0.0 E9/LNormal0.0 - 0.2 E9/L [facility] HemeAutoSSEosinophils/100 WBC (Bld)3.6 %Normal0.0 - 8.0 %[facility] HemeAutoSS Eosinophils/Leukocytes Auto (Bld) [Pure # fraction]0.3 E9/LNormal0.0 - 0.5 E9/L [facility] HemeAutoSSLymphocytes/100 WBC (Bld)19.3 %Koeuls81.0 - 50.0 %[facility] HemeAutoSS Lymphocytes/Leukocytes Auto (Bld) [Pure # fraction]1.4 E9/LNormal1.0 - 4.0 E9/L [facility] HemeAutoSSMonocytes/100 WBC (Bld)12.2 %Normal4.0 - 14.0 %[facility] HemeAutoSS Monocytes/Leukocytes Auto (Bld) [Pure # fraction]0.9 E9/LNormal0.2 - 1.0 E9/L [facility] HemeAutoSSNeutrophils/100 WBC (Bld)64.7 %Bkklti43.0 - 75.0 %[facility] HemeAutoSS Neutrophils/Leukocytes Auto (Bld) [Pure # fraction]4.6 E9/LNormal2.0 - 7.5 E9/L [facility] HemeAutoSSHEMATOLOGYOrdered By: Trina Ventura on 09-52-3199Xneignqfjmn distribution width (RBC) [Ratio]13.6 %Tkpdey20.9 - 14.2 %[facility] HemeAutoSS Hematocrit (Bld) [Volume fraction]44.5 %Jbugmk90.7 - 49.0 %[facility] HemeAutoSS Hemoglobin (Bld) [Mass/Vol]14.6 g/hTSkqmgz07.5 - 17.5 gm/dLFTMC HemeAutoSSMCH (RBC) [Entitic mass]29.0 pkYfujto58.0 - 34.0 pgFTMC HemeAutoSSMCHC (RBC) [Mass/Vol]32.8 g/dQYzreqx39.4 - 36.0 gm/dLFTMC HemeAutoSSMCV (RBC) [Entitic vol] 88.2 oOJdsuae39.0 - 100.0 fLFTMC HemeAutoSSPlatelet mean volume (Bld) [Entitic vol]8.1 fLNormal6.4 - 10.8 fLFTMC HemeAutoSSPlatelets (Bld) [#/Vol]151.0 E9/L Efrvyy683.0 - 500.0 E9/LFTMC HemeAutoSSRBC (Bld) [#/Vol]5.0 E12/LNormal4.3 - 5.9 E12/[facility] HemeAutoSSWBC corrected for nucl RBC Auto (Bld) [#/Vol]7.1 E9/LNormal 4.0 - 11.0 E9/[facility] HemeAutoSSECHOCARDIO M/2D COMPLETEon 11-65-1388RXPQFSVPRA M/2D COMPLETEPatient: ZAIRA SEGURA Exam Date: 02/18/2022 : 1935 Gender:M Ordering : TARA KELLEY Admission #: [id number] Family : DR DOMINGO MEDRANO . Order #: [id number] CLICK HERE TO VIEW EXAM ECHOCARDIOGRAM REPORT [...] by: Stuart You M.D. on 02/19/2022 at 14:03[facility] CenterBNPon 49-81-1775Gyvvdzwhkwn peptide B (Bld) [Mass/Vol]157.0 pg/mLNormal <=1,800.0The [facility] Medical CenterComment on above:Performed By: #### BNP #### [facility] [address] [place] [address] Dr. Nitish Rabagoycin,Troughon 95-32-3355Hsnmlycvez,Zmoiph12.5 ug/mLNormal 10.0-20.0[facility] HospitalComment on above:Result Comment: Last dose: - PERFORMED BY: [facility] [address] [place] [address] PATHOLOGIST TOURS HOSTESS KATE LOTT M.D.Performed By: #### VANCT #### [address] Vital Signs Date TimeVital SignValuePerforming LfeceolvwImuweslh15-84-5323 12:53-0400Body utvtrv311.4 cmChelder Adkins DPM Work Phone: [phone]-[facility] HospitalLoawazppxv48-37-3437 12:53-0400Body mass index (BMI) [Ratio]29.55 kg/h5Gppyodtlnrp Bohach DPM Work Phone: [phone]-[facility] HospitalXpcwajkykj08-26-9879 12:53-0400Body htedrr303.61 kgChristopher Bohach DPM Work Phone: [facility] HospitalDpphjkkdpj02-59-0231 12:53-0400Diastolic blood czjncqyi86 mm[Hg]Patrick Adkins DPM Work Phone: [facility] HospitalWvugsrrjpa73-66-4871 12:53-0400Heart rate58 /min Patrick Adkins DPM Work Phone: [facility] HospitalQmjqykwjhs31-14-9912 12:53-0400Systolic blood antktpgq808 mm[Hg]Patrick Adkins DPM Work Phone: [facility] HospitalFzvomvtasw19-90-8048 12:52-0400Body rcuahl195.4 cmChristophsofia Bohach DPM Work Phone: [facility] HospitalJwfiosqneh71-41-3693 12:52-0400Body mass index (BMI) [Ratio]29.55 kg/v0Lrlmihfvxrt Bohach DPM Work Phone: [facility] HospitalLnzpearlgb85-13-3053 12:52-0400Body kaihyy948.61 kgChrisjeremy Adkins DPM Work Phone: [facility] HospitalWmyvlrmhcm28-20-8497 12:52-0400Diastolic blood amhinbiz98 mm[Hg]Patrick Adkins DPM Work Phone: [facility] HospitalRwhgyvqpln10-00-3753 12:52-0400Heart rate64 /min Patrick Adkins DPM Work Phone: [facility] HospitalRobmhuvogt39-60-1818 12:52-0400Respiratory rate16 /minChristopher Adkins DPM Work Phone: [facility] HospitalZyxogueymj14-76-7051 12:52-0400Systolic blood mbtihgdk418 mm[Hg]Patrick Adkins DPM Work Phone: [facility] HospitalXlcokdydoa33-04-3470 12:52-0400Hourly Rounding Sixto RENATO [address] [place], [place] 7103103-20-2023 12:52-0400 Promise to ReturnPatrick RENATO [address] [place], [place] 7103103-20-2023 11:52-0400 Hourly RoundingPatrick RENATO [address] [place], [place] 7103103-20-2023 11:52-0400 Promise to ReturnPatrick RENATO [address] [place], [place] 7103103-20-2023 11:39-0400gluc 227 mg/dLPatrick RENATO [address] [place], [place] 7103103-20-2023 11:00-0400Body lwaakhxchme64.06 [degF]Sixto RENATO [address] [place], [place] 7103103-20-2023 11:00-0400Heart rate66 /minPatrick RENATO [address] [place], [place] 7103103-20-2023 11:00-6238GzF2% (BldA) [Mass fraction]97 %Sixto GROSS [address]03-20-2023 11:00-0400 Systolic blood acvbspme564 mm[Hg]Sixto GROSS [address] [place], [place] 4603003-20-2023 10:36-0400 Hourly RoundingPatrick RENATO [address] [place], [place] 4603003-20-2023 10:36-0400 Promise to ReturnPatrick RENATO [address] [place], [place] 4603003-20-2023 08:50-0400 Diastolic blood udrdwrrp89 mm[Hg]Sixto GROSS [address] [place], [place] 4603003-20-2023 08:50-0400Heart rate76 /minPatrick RENATO [address] [place], [place] 4603003-20-2023 08:50-0400 Systolic blood xzeldnwj546 mm[Hg]Sixto GROSS [address]03-20-2023 08:00-0400Body .42 [degF]Sixto GROSS [address] [place], [place] 7103[address]-20-2023 07:30-0400Heart rate69 /minPatricrikki GROSS [address] [place], [place] 7103103-20-2023 07:30-0400Mean blood bkomfbzf04 mm[Hg]Sixto GROSS [address] [place], [place] 7103103-20-2023 07:30-0400 Respiratory rate16 /minPatrick RENATO [address] [place], [place] 4603003-20-2023 05:24-0400Body dfogjppnbih06.52 [degF]Sixto GROSS [address] [place], [place] 7103[address]-20-2023 05:24-0400Mean blood pxcymrjx447 mm[Hg]Sixto GROSS [address]03-20-2023 05:24-0400 Respiratory rate16 /minPatrick RENATO [address]03-20-2023 05:24-0016BxQ5% (BldA) [Mass fraction]98 %Sixto GROSS [address]03-20-2023 01:00-0400Heart rate67 /minPatrick RENATO [address]03-20-2023 01:00-0400Mean blood bjpatqjk042 mm[Hg]Sixto GROSS [address]03-20-2023 01:00-0400 Respiratory rate16 /minPatrick RENATO [address]03-19-2023 18:56-0400Blood Pressure LocationPatrick RENATO [address] [place], [place] 7103103-19-2023 18:32-0400Heart rate80 /minPatrick RENATO [address]03-19-2023 16:40-0400Heart rate72 /minPatrick RENATO [address] [place], [place] 7103103-19-2023 15:10-0400Mean blood dkuwvjsu982 mm[Hg]Sixto GROSS [address] [place], [place] 7103103-19-2023 10:56-0400Mean blood cgvlnyws280 mm[Hg]Sixto VILCHISSLIN [address] [place], [place] 7103[address]-19-2023 07:00-0400Body umyiwzuhprt23.88 [degF]Sixtoelvira GROSS [facility]03-19-2023 00:12-0400Mean blood cqcgyyrm457 mm[Hg]Sixto GROSS [facility]03-19-2023 00:00-0400Blood Pressure LocationPaminesh GROSS [facility]03-19-2023 00:00-0400Body zllyjgupgvp66.24 [degF]Sixto GROSS [facility]03-18-2023 08:08-0400Body jvdiqpyfnhw39.14 [degF]Sixto GROSS [facility] Encounters Encounter DateEncounter TypeCare ProviderFacilityStart: 72-22-7014mpwolpirds GIRISH A LEHMANNFacility:[facility] BellevueStart: 11-19-2024 End: 50-74-2737hutxcbspldGUNECleveland Clinic Mentor Hospitaltart: 09-12-2024 End: 69-54-8666ydsdsetmjdTSPOVX A LEHMANNFacility:[facility]vueStart: 08-24-2024 End: 91-92-0528enubaiqekvMOBLCleveland Clinic Mentor Hospitaltart: 08-16-2024 End: 46-30-6235Gmydap flowsheetChshadi Adkins DPM Work Phone: NOM[facility] WWW PODIATRYStart: 08-16-2024 End: 06-51-5291Doeeot flowsheetChshadi Adkins DPM Work Phone: noMS WWW PODIATRYStart: 08-16-2024 End: 44-35-1988Onhbarq encounter procedureChshadi Adkins DPM Work Phone: noms WWW PODIATRYComment on above:Diabetic polyneuropathy associated with type 2 diabetes mellitus (HCC) (Primary Dx); Onychomycosis; Corns and callositiesStart: 08-16-2024 End: 11-61-9865vvulpbsrtdKIOITRIXFXS J BOHACHNot AvailableStart: 08-07-2024 End: 10-49-7200gtvpuymmuqUMI GIRISH A EUGENIOFacility:FT BellevueStart: 06-04-2024 End: 10-61-7480Bgs Drop Katinaelenamaame Jackson Dipesh [facility] Start: 06-04-2024 End: 52-82-6183hpfkttfugeHY Gilsonmaame SalgadoFacility:FTMCStart: 04-17-2024 End: 54-00-1411pxkfocbjesEENOLIVWUXK J BOHACHNot AvailableStart: 03-05-2024 End: 20-30-9543rnkppuodksSlhgvb E. RossFacility:[facility] BellevueStart: 12-15-2023 End: 62-52-0747ldyotmwpneOfasip E. RossFacility:FT BellevueStart: 12-09-2023 End: 88-72-6927Cnootl flowsheetChristopher Henrietta Adkins DPM Work Phone: noms WWW PODIATRYStart: 12-09-2023 End: 56-40-1112Tckldz flowsheetChristopher Henrietta Tamayoach DPM Work Phone: noms WWW PODIATRYStart: 12-09-2023 End: 52-29-7464Ncvrzdj encounter procedureChristopher Henrietta Adkins DPM Work Phone: NOLL WWW PODIATRYComment on above:Diabetic polyneuropathy associated with type 2 diabetes mellitus (CMS/HCC) (Primary Dx); OnychomycosisStart: 12-09-2023 End: 20-54-3568jzahecoieaJLNLLHEZLTL J BOHACHNot AvailableStart: 11-01-2023 End: 09-36-6012bwhtocrsohPaaltk E. RossFacility:[facility] BellevueStart: 08-02-2023 ambulatorySaitalo SalgadoFacility:FTMCStart: 08-02-2023 End: 59-78-2351Xbn Drop offSvinicius Salgado [facility] Start: 08-02-2023 End: 47-38-4485lgszuinknrTwgauy MarcZara SalgadoFacility:[facility] BellevueStart: 07-25-2023 End: 02-40-3202umqrqwitwcCjijnz E. RossFacility:[facility]vueStart: 07-18-2023 End: 99-10-8176gefrmzwqzoREBGHF A LEHMANNFacility:[facility] BellevueStart: 82-97-0401xckpgozsjzPhfasz RossFacility:[facility]vueStart: 05-02-2023 End: 71-59-9991fyimhdjcmxBhbjjq E. RossFacility:[facility] BellevueStart: 04-20-2023 End: 43-84-9816Uoj Drop offSvinicius Salgado [facility] Start: 04-20-2023 End: 72-24-4565uhhnxcmuciPbysei E. DipeshFacility:FTMCStart: 89-09-9679ooautajybi TARA DANIELAZIFacility:V7Dhbnn: 06-08-2022 End: 87-73-3109Lzd Drop offSvinicius Salgado [facility] Start: 68-34-7574lhugjehtpuDY JIHAD ABBASFacility:H1 Start: 04-23-2022 End: 65-75-7676PfnsruogxufQbcrlbw A BRESLIN [facility] Start: 04-08-2022 End: 32-55-4751hnaamasmmhDWQXTOOL ZAHLERFacility:P3Pzaxz: 03-11-2022 End: 25-33-8525zqldpffaixZWALMKJX ZAHLERFacility:V9Jmpfj: 90-80-7393gavhexjjjd TARA BARAZIFacility:B8Wbhnu: 02-18-2022 End: 71-05-1907wpcqpdoxklVNQUG BARAZIFacility:J2Ldtip: 12-28-2021 End: 54-48-3150rqdezxgubeELDBG D HIGHLANDERFacility:G0Qtrnv: 10-26-2021 End: 13-06-6359qexarzyhtnTSRVG D HIGHLANDERFacility:N2Ebgpk: 09-28-2021 End: 58-09-5555hqvlfnirtmMHZEQ D HIGHLANDERFacility:Y8Gvrrb: 08-21-2021 End: 95-28-1802pyztzpojjqSYNEC D HIGHLANDERFacility:O4Emxve: 07-31-2021 End: 39-20-3890zkxsoqbccdBVBCQ D HIGHLANDERFacility:D5Moott: 07-28-2021 End: 58-49-3391evrluwaqksLJ NONE LISTED REQUESTFacility:L2Tneni: 07-24-2021 End: 50-72-8283vyhhfcjkfgWQIGD D HIGHLANDERFacility:H1 Procedures DateProcedureProcedure DetailPerforming ClinicianStart: 00-02-5646Cunmgvq catheter (physical object)Gilson Salgado Angioplasty of blood vesselPaminesh GROSS Comment on above:Rt leg ataract (disorder)Gilson Salgado Comment on above:summer 2022Inguinal hernia (disorder) [place] GROSS Stent, device (physical object)Sixto GROSS Comment on above:Rt Leg urgical procedurePaminesh GROSS Comment on above:Rt foot for infection Plan of Treatment DateCare ActivityDetailAuthorStart: 12-20-2024 End: 21-68-8693Nlktfyr encounter ormjyxlqx12/13/2025 2:00 PM EST Procedure Visit [facility] [address] [place] [address] Patrick Adkins, DPIrene [address] [place] [address] [facility]Start: 08-19-8374Lutdovgcc vaccination Influenza Vaccine (#1)[facility] HealthcareStart: 08-16-2024 End: 31-24-0033Qkbmmuu encounter dlbzhvaoh72/10/2025 1:15 PM EDT Procedure Visit [facility] [address] [place] [address] Patrick Adkins, DPM [address] [place] [address] ArrivedNOMS WWW PODIATRYComment on above:ArrivedStart: 04-10-2024 End: 89-47-5449Lykyrfs encounter doyyvmmox51/04/2025 1:30 PM EST Procedure Visit [facility] [address] [place] [address] Patrick Adkins, DPM [address] [id number] [facility]: 12-09-2023 End: 29-72-9234Azrrjaq encounter sqfsdlgmy19/01/2024 1:00 PM EDT Procedure Visit [facility] [address] [place] [address] Patrick Adkins, DPM [address] [place] [address] ArrivedNOMS WWW PODIATRYComment on above:ArrivedStart: 31-78-8073Hptbpoyuv vaccinationInfluenza Vaccine (#1)[facility] Immunizations Immunization DateImmunizationNotesCare AfsyovdkLagnkkjp24-89-8613ivbbrwqauils 20-valent conjugate vaccinePatricrikki GROSS 476-2490Uwpulp-IcdzpNationwide Children'S Hospital11-28-2022 SARS-CoV-2 (COVID-19) mRNAMUL.ORD!j89415IgbaxufNeocleus 527-1181Kmyyla-NtariNationwide Children'S Hospital11-01-2021 SARS-CoV-2 (COVID-19) mRNA BNT-162b2 SocialMatica 887-8301Ktehdd-XodovNationwide Children'S HospitalComment on above: Result Comment: 2022-04-19: [id number]-OcY-6 (COVID-19) mRNA BNT-162b2 [employer] 257-6719Tlcrsu-PmgluNationwide Children'S Hospital04-07-2021 SARS-CoV-2 (COVID-19) mRNA BNT-162b2 [employer] 332-7716Psasjc-EfdodNationwide Children'S HospitalNEGATED: Highlighted row has not occurred!45-63-9347pisfeilgc virus vaccine, unspecified formulationSvinicius Salgado [phone]-DvohmAshtabula County Medical Center Payers DatePayer CategoryPayerPolicy [id number] [id number] [id number] Health InsuranceAARP [id number] [id number] 08-34-3730Oioz-[id number] 2.16.840.1.440854.3.57[id number] 2.16840.1.693891.3.57[id number] 2.16840.1.098196.3.57[id number] 2.840.1.766784.3.57[id number] 2.840.1.822119.3.57[id number] 2.840.1.118521.3.57[id number] 2.840.1.697227.3.57[id number] 2..840.1.908869.3.57[id number] 2.840.1.682123.3.57[id number] 2.16840.1.756305.3.57[id number] 2.16840.1.734083.3.57[id number] 2.16840.1.391381.3.57[id number] 2.16840.1.218750.3.579.2.41311-21-6838Epdadst9875632 2.840.1.982469.3.579.[id number] 2.840.1.026444.3.57[id number] 2.840.1.938461.3.57[id number] 2.0.1.382852.3.579.2.22131-73-0038Rekelci10669568 2.0.1.899656.3.579.[id number] 2..1.958426.3.579.2.[id number] 2..1.436375.3.579.2.50246-18-4658Tklaivt16703958 2.0.1.698067.3.57[id number] 2.0.1.697630.3.57[id number] 2..1.797720.3.579.2.[id number] 2..1.094656.3.579.2.871644-79-3152Wdrksfn3301688 2..1.505093.3.579.2.273439-50-5179Ysydfkf9329996 2.840.1.616785.3.579.2.6[id number] 2.840.1.048629.3.57[id number] 2.16.840.1.202654.3.579.2.[id number] 2.16.840.1.773230.3.579.2.52878-24-4231Ymissut46421488 2.16.840.1.287461.3.579.2.41305-63-1475Xwegazq47534669 2.16.840.1.687584.3.579.[id number] 2.16.840.1.811267.3.57[id number] 2.16.840.1.177429.3.579.2.727 Social History DateTypeDetailFacilityTobacco smoking statusOur Lady of Mercy Hospitaltart: 08-18-2023 End: 76-85-1042Lvj Assigned At BirthMaleFHenry County Hospitaltart: 06-08-2022 End: 41-47-1935Uuhzvvc smoking statusNever smoked tobacco (finding)[facility] BellevueComment on above:deniesdenies use.Tobacco smoking status NeverAcmc Healthcare System BellevueComment on above:deniesdenies use. Start: 84-40-4080Ravahxe use and exposureSmokeless tobacco non-userNOMS HealthcareStart: 08-18-2023 End: 13-15-0664Rpeagujeb beverage intakeLifetime non-drinker (finding)[facility] HealthcareStart: 08-18-2023 End: 64-65-9902Btrhmra of Social functionNOMS HealthcareStart: 15-03-4092Pfh assigned at birthNot on fileNOMS HealthcareSexMale (finding)[facility] Medical Equipment Procedure CodeEquipment CodeEquipment Original TextEquipment IdentifierDatesUSE 3 TIMES DAILY WITH INSULINStart: 41-18-6459CYL 3 TIMES DAILY WITH INSULINStart: 85-87-9291LIP 3 TIMES DAILY WITH INSULINStart: 21-91-2196KYD 3 TIMES DAILY WITH INSULINStart: 79-29-6167FPX 3 TIMES DAILY WITH INSULINStart: 44-25-1653swv needles, See Instructions, 300 EA, 1, BD UF maida pen needle 4mm x 32g E11.9, [id number], Supply, 180, cm, 11/19/22 9:02:00 EDT, Height/Length Dosing, 102.7, kg, 11/19/22 9:02:00 EDT, Weight DosingStart: 58-09-7600EOK 3 TIMES DAILY WITH INSULINStart: 01-52-9083yrk needles, See Instructions, 300 EA, 2, BD UF maida pen needle 4mm x 32g E11.9, [id number], Supply, 180, cm, 05/02/23 11:04:00 EDT, Height/Length Dosing, 109.2, kg, 05/02/23 11:02:00 EDT, Weight DosingStart: 20-99-8755YIA 3 TIMES DAILY WITH INSULINStart: 88-51-5550rdb needles, See Instructions, 300 EA, 2, BD UF maida pen needle 4mm x 32g E11.9, [id number], Supply, 182, cm, 11/01/23 13:55:00 EDT, Height/Length Dosing, 109, kg, 11/01/23 13:55:00 EDT, Weight DosingStart: 11-02-2023 Functional Status JafdAhwypakomnZoozbdXhauztnm92-82-9411Qhocheuwat StatusN/AFisher - [facility] InstituteWjzzjg32-34-4424Kmciwocvhv StatusFisher - [facility] Clinical Notes 03-11-2022 to 11-19-2024 Note Date & SehqDfoqPxotdmui29-52-9857 NoteSUBJECTIVE Reason for Visit: Zaira Segura III is a 89 y.o. year old male patient being seen for 3-month follow-up visit. HPI: Zaira Segura III is a 89 [...] began. 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 Medical thera (more content not included)...[facility]08-06-2025 NotePatient Education Endocrinology Diabetes Mellitus and Foot Care Diabetes, also called diabetes mellitus, may cause problems with your feet and legs because of poorblood flow (circulation). Poor circulation may make your skin: ??? Become thinner and back tender pulp drier. ??? Break more easily. ??? Heal [...] them or around the cuticle. File the edgesof your nails with an emery board or [...] your feet, keep it and the skin aroundit clean and dry. You may clean these [...] They may burn your skin. If you havelost feeling in your feet or legs, you [...] away. Where to find more information ??? [place] [employer]: diabetes.org ??? Association of Diabetes [...] provider. Document Revised: 07/28/2022 Document Reviewed: 07/28/2022 NGI Patient Education ? 2023 [employer].[facility] 08-24-2024 NoteSUBJECTIVE Reason for Visit: Zaira Segura III is [...] began. 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 In this s (more content not included)...[facility]07-10-2025 History of Present illness Narrative* Patrick Adkins, DPIrene - 08/16/2024 1:15 PM EDT Zaira Segura III is a 89 y.o. [...] 5mm. 2Long, Thick, Crumbly, Deformed, Discolored, Brittle, Rqurgprbec6nb. 3Long, Thick, Crumbly, Discolored,Dystrophic 3mm 4Long, Thick, . 5Long, Thick, Crumbly, Deformed, Discolored, Brittle, Dsiqdrbykw4kq. Nail Pathology: Right Foot: 1 (great toe)Long, Thick, Crumbly, Deformed, Discolored, Brittle, Dystrophic 5mm. 2Long, Thick, Crumbly, Deformed, Discolored, Brittle, Yppkezyvyb8en. 3Long, Thick, Crumbly, Deformed, Discolored, Brittle, Qemeyvfrlg8jg 4Long, Thick, Crumbly, Deformed, Discolored, Brittle, Dystrophic, 4mm 5Long, Thick, Crumbly, Deformed, Discolored, Brittle, Zwfapqqzvk2ce. Orthopedic: DEFORMITIES: Bilateral digital deformities. MUSCLE STRENGTH [...] with a #15 blade documented in this encounterSaint John's [facility] Community HospitalYozkfbmygs77-25-2611 NotePatient Education Endocrinology Hyperglycemia Hyperglycemia is when the [...] defense system (immune system) attacks itself. These arecalled autoimmune disorders. ??? Being overweight. ??? Not [...] instructions at home: General instructions ??? Take qdps-lvq-cptooen and prescription medicines only as told by [...] equals one 12 oz bottle of beer (355mL), one 5 oz glass of wine (148 [...] drink normally. Make this plan ahead of timewith your doctor. ??? Share your diabetes management plan with people in your workplace, school, and household. ??? Check your pee for ketones when you are ill and as told by your doctor. ??? Carry a card or wear jewelry that says that you have diabetes. Where to find more information [place] [employer] Association: www.diabetes.org Contact a doctor if: [...] reads high even when (more content not included)...[facility]11-07-2024 NotePatient Education Chronic Kidney Disease, Adult Chronic kidney [...] these instructions at home: Medicines ??? Take krig-sif-nttpeoq and prescription medicines only as told by [...] visits. Where to find more information ??? [place] Association of Kidney Patients: www.aakp.org ??? National Kidney Foundation: www.kidney.org ??? [place] Kid[employer] Fund: www.akfinc.org ??? Life Options: www.lifeoptions.org [...] away. Call your local emergency services (911 int [place] ??? Do not wait to see [...] can help symptoms and help keep the diseasefrom getting worse. ??? Treatment may involve lifestyle changes, medicines, and dialysis. This information is not intended to replace advice given to you by your health care p (more contentnot included)...[facility]11-01-2024 History of Present illness Narrative* Patrick Adkins, DPM - 12/09/2023 1:00 PM EDT Zaira Segura III is a 88 y.o. male presents with chief complaint of Toenail Care HPI: HPI Pt has a healing scab Left lower leg. He denies pain and drainage today. It started as a stasis blister that popped the end of July. He is leaving it open to air. He finished kelfex about a week ago.He denies pain. He was recently put on [...] day, # 15 mL, Refills(s) 0, Pharmacy: [id number], 182, cm, 06/08/22 13:43:00 EDT, Height/Length [...] 5mm. 2Long, Thick, Crumbly, Deformed, Discolored, Brittle, Ccwdzxjrjb1lq. 3Long, Thick, Crumbly, Discolored,Dystrophic 3mm 4Long, Thick, . 5Long, Thick, Crumbly, Deformed, Discolored, Brittle, Iwzzglkqar8kl. Nail Pathology: Right Foot: 1 (great toe)Long, Thick, Crumbly, Deformed, Discolored, Brittle, Dystrophic 5mm. 2Long, Thick, Crumbly, Deformed, Discolored, Brittle, Svtruwkcpj1qu. 3Long, Thick, Crumbly, Deformed, Discolored, Brittle, Smzlnmdvae6hw 4Long, Thick, Crumbly, Deformed, Discolored, Brittle, Dystrophic, 4mm 5Long, Thick, Crumbly, Deformed, Discolored, Brittle, Pqojaljofb7je. Orthopedic: DEFORMITIES: Bilateral digital deformities. MUSCLE STRENGTH [...] and compliance with meds documented in this encounterSaint John's Aurora Community HospitalYiwqlnaalr79-32-1094 NotePatient Education Cardiovascular Hypertension, Adult High blood pressure [...] are some conditions that result in high bloodpressure. What increases the risk? Certain factors may make you more likely to develop high blood pressure. Some of these risk factorsare under your control, including: ? Smoking. ? [...] on the floor. The cuff of the bloodpressure monitor will be placed directly against the [...] of wine (148 mL), (more content not included)...[facility]03-20-2023 Evaluation + Plan note Extracted from:Title:Discharge NoteAuthor:Camilo ROGERS MD PDate:04/26/22 Discharge To, Anticipated II - [facility] [...] Bedtime BD MAIDA 2 GEN PEN NDL [id number] BD UF MAIDA PEN NEEDLE [id number] [facility] ZINC 50 MG TABLET Eliquis 5 mg oral tablet, Still taking, not as prescribed: tAKES 2 TABLETS TWICE DAILY Handicap Placard, See Instructions HumaLOG KwikPen 100 units/mL injectable solution ketorolac Opth 0.5% Catherine Lantus Solostar Pen 100 units/mL subcutaneous solution Lopressor 25 mg oral tablet magnesium oxide 400 mg Tab ofloxacin Opth 0.3% Catherine Potassium Chloride (Pyf-Koxy-Ptl 10) 10 mEq oral tablet, extended release With When Contact Information Follow-up with your eye surgery Dr. Within 7 to 10 days Additional Instructions: Call for followup appointment Call physician if symptoms worsen DOMINGO MEDRANO Within 7 to [address] [place] [address] [facility] (1) Additional Instructions: Call for followup appointment Call physician if symptoms worsen Fall Prevention in the Home, Adult Extracted from:Title:Progress/SOAP NoteAuthor:Ahmet PABLO, Wilmer ShresthaDate:04/25/22 1. Fall (W19.XXXA: Unspecifi ed fall, initial [...] he at least undergo a 2D echo withDoppler to define his LV function, pulmonary pressures and valvular status. Would recommend holdinganticoagulation given his recent fall and laceration. He [...] in no shape for a stress test Astrid explained to him that it would be [...] EDT, Start date 04/24/22 10:15:00 EDT Extracted from:Title:Progress noteAuthor:Camilo ROGERS MD PDate:04/25/22 Discharge To, Anticipated II - [facility] [...] Bedtime BD MAIDA 2 GEN PEN NDL [id number] BD UF MAIDA PEN NEEDLE [id number] CVS ZINC 50 MG TABLET Eliquis 5 mg oral tablet, Still taking, not as prescribed: tAKES 2 TABLETS TWICE DAILY Handicap Placard, See Instructions HumaLOG KwikPen 100 units/mL injectable solution ketorolac Opth 0.5% Catherien Lantus Solostar Pen 100 units/mL subcutaneous solution Lopressor 25 mg oral tablet magnesium oxide 400 mg Tab ofloxacin Opth 0.3% Catherine Potassium Chloride (Yqt-Ikrb-Ukn 10) 10 mEq oral tablet, extended release With When Contact Information Follow-up with your eye surgery DrZara Within 7 to 10 days Additional Instructions: Call for followup appointment Call physician if symptoms worsen DOMINGO MEDRANO Within 7 to 10 [address] [place] [phone] Business (1) Additional Instructions: Call for followup appointment Call physician if symptoms worsen Fall Prevention in the Home, Adult Addendum by Camilo ROGERS MD on April 26, 2022 09:46:33 EDT Use this as a progress note as patient discharged Extracted from:Title:Progress noteAuthor:Camilo ROGERS MD PDate:04/24/22 Discharged to - Home independently Discharge Status: [...] Bedtime BD MAIDA 2 GEN PEN NDL [id number] BD UF MAIDA PEN NEEDLE [id number] CVS ZINC 50 MG TABLET Eliquis 5 mg oral tablet, Still taking, not as prescribed: tAKES 2 TABLETS TWICE DAILY Handicap Placard, See Instructions HumaLOG KwikPen 100 units/mL injectable solution ketorolac Opth 0.5% Catherine Lantus Solostar Pen 100 units/mL subcutaneous solution Lopressor 25 mg oral tablet magnesium oxide 400 mg Tab ofloxacin Opth 0.3% Catherine Potassium Chloride (Nwh-Hbbe-Ypt 10) 10 mEq oral tablet, extended release With When Contact Information Follow-up with your eye surgery Dr. Within 7 to 10 days Additional Instructions: Call for followup appointment Call physician if symptoms worsen DOMINGO MEDRANO Within 7 to [address] [place] [address] Business (1) Additional Instructions: Call for followup appointment Call physician if symptoms worsen Fall Prevention in the Home, Adult Addendum by Camilo ROGERS MD on April 25, 2022 08:14:22 EDT Use this as a progress note as patient was not discharged due to pending placement Addendum by Camilo ROGERS MD on April 25, 2022 08:16:12 EDT . Extracted from:Title:Consult NoteAuthor:Wilmer Leo MDte:04/24/22 1. Fall (W19.XXXA: Unspecifi ed fall, initial [...] mg p.o. twice daily. Would hold Eliquis therapyuntil after his eye laceration has healed. He is currently in sinus rhythm. 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 Thank you very [...] pain (M25.519: Pain in unspecified shoulder) Extracted from:Title:Admission H & PAuthor:RENATO OKEEFE Sixto ADate:04/24/22 1. Fall (W19.XXXA: Unspecifi ed fall, initial [...] had extensive cellulitis and was hospitalized in [place]. He states after that hospitalization he had [...] We will consult with cardiology with below andalso ask for their opinion as to when [...] declined as his pain from the fall decreasesdid not wish to precipitate significant drop in [...] states he was under the impression his gas leak inspector wanted him on 10 mg twice [...] be due to diabetes. Patient did state thathe had a cough last week with a [...] insufficiency if indeed he has had poor long- term control. With described elevated blood sugars at [...] mL, Susp-Oral, Oral, q6hr PRN Indigestion, Routine, Startdate 04/24/22 3:15:00 EDT atorvastatin, 40 mg = [...] q6hr PRN Nausea, Routine, Start date 04/24/22 3:15:00EDT, 04/24/22 3:15:00 EDT senna, 17.2 mg = [...] and he demonstrates neurologic deficits would then beanticipated to require 1 midnight stay [facility]03-18-2023 Hospital Discharge instructions Patient Education 04/24/2022 [...] Use night-lights. Place frequently used items in nsbo-pj-eoxcs places. Lower the shelves around your home [...] of the way. Do not use floor belizean or wax that makes floors slippery. If [...] include working with a physical therapist or agency trainer to improve your strength, balance, and endurance. Where to find more information Centers for Disease Control and PreventionSHEREEN: https://www.cdc.gov National [place] on Aging: https://yb9shtf.gumaro.nih.gov Contact a health care provider if: You [...] 01/14/2003 Document Revised: 01/06/2018 Document Reviewed: 09/08/2017 NGI Patient Education 2020 [employer]. Follow Up Care 04/23/2022 18:13:42 With:Follow-up with your eye surgery Dr. Address:Unknown When:7 to 10 days Comments:Call for followup appointmentCall physician if symptoms worsen With:DOMINGO MEDRANO Address: [address] [place], [place] [address] [facility] (1) When:7 to 10 days Comments:Call for followup appointmentCall physician if symptoms worsen [facility]03-02-2023 NoteOPERATIVE NOTE OPERATION DATE: 04/08/2022 SURGEON: [...] ensuring mobility, phacoemulsification was performed in a wenayuk-kzh-aejijf-type fashion. After all nuclear material had been [...] up the following day for postoperative care.[facility] CenterImerfkrj29-63-9199 NotePREOPERATIVE HISTORY AND PHYSICAL Date:04/07/2022 HISTORY: Patient [...] and go forward with his elective procedure.[facility] CenterBjazvhcj83-10-6932 NoteOPERATIVE NOTE OPERATION DATE: 03/11/2022 SURGEON: Cricket [...] ensuring mobility, phacoemulsification was performed in a qkpvalu-jce-tqcyst-type fashion. After all nuclear material had been [...] up the following day for postoperative care.[facility] CenterSpexucgl47-14-8388 NoteHISTORY AND PHYSICAL EXAMINATION Date:03/10/2022 HISTORY: The [...] and go forward with his elective procedure.[facility] CenterEvaluation + Plan note Future Appointments Appointment Date:06/25/2022 10:00:00 AM Scheduled Provider: Location:[facility] Appointment Type: Nurse Visit Future Scheduled Tests Laboratory* HgbA1c 06/08/22 * Microalbumin Level Urine 06/08/22 * CBC w/ Auto Diff 06/08/22 * Comprehensive Metabolic Panel 06/08/22 * Lipid Panel 06/08/22 [facility] Future Appointments Appointment Date:06/02/2023 09:15:00 AM Scheduled Provider:Gilson Salgado MD Location:[facility] Appointment Type: Open Appointment Date:11/22/2023 01:00:00 PM Scheduled Provider: Location:[facility] Appointment Type: Medicare Wellness Subsequent Diagnostic Tests Pending * HgbA1c 04/20/23 * Microalbumin Level Urine 04/20/23 * U Protein/Creat Ratio 04/20/23 [facility] Future Appointments Appointment Date:11/01/2023 02:00:00 PM Scheduled Provider:Gilson Salgado MD Location:[facility] Appointment Type: Open Appointment Date:11/22/2023 01:00:00 PM Scheduled Provider: Location:[facility] Appointment Type: Medicare Wellness Subsequent [facility] Future Appointments Appointment Date:08/07/2024 02:00:00 PM Scheduled Provider:Gilson Salgado MD Location:[facility] Appointment Type: Open Appointment Date:12/20/2024 02:30:00 PM Scheduled Provider: Location:[facility] Appointment Type: Medicare Wellness Subsequent [facility] Evaluation note* Diagnosis Diabetic polyneuropathy associated with type 2 diabetes mellitus (CMS/HCC)- Primary Onychomycosis Dermatophytosis of nail documented in this encounter [facility]* Diagnosis Diabetic polyneuropathy associated with type 2 diabetes mellitus (HCC)- Primary Onychomycosis Dermatophytosis of nail Corns and callosities documented in this encounter [facility] Narrative No data available for this section [facility] No data available for this section [facility] No data available for this section [facility] Summary Purpose Family History No Family [...] section and content) DATE CREATED AUTHOR 10/24/2020 [facility] DATE CREATED AUTHOR AUTHOR'S ORGANIZ ATION 07/18/2022 [facility] DATE CREATED AUTHOR AUTHOR'S ORGANIZ ATION 08/04/2023 [facility] DATE CREATED AUTHOR AUTHOR'S ORGANIZ ATION 12/20/2023 [facility] DATE CREATED AUTHOR AUTHOR'S ORGANIZ ATION 06/05/2024 [facility] DATE CREATED AUTHOR AUTHOR'S ORGANIZ ATION 08/20/2024 [facility] DATE CREATED AUTHOR AUTHOR'S ORGANIZ ATION 09/22/2024 [facility] DATE CREATED AUTHOR AUTHOR'S ORGANIZ ATION 10/02/2024 [facility] DATE CREATED AUTHOR AUTHOR'S ORGANIZ ATION 11/26/2024 [facility] Patient Care team informatio n (unrecognized section and content) Team MemberRelationshipSpecialtyStart DateEnd Date Gilson Salgado MD [address] [place] [id number] PCP - GeneralFami Cvymrmeb58/1/24Team MemberRelationshipSpecialtyStart DateEnd Date Gilson Salgado MD [address] [place] [address] PCP - GeneralFamily Izmszmlz93/1/24Team MemberRelationshipSpecialtyStart DateEnd Date Gilson Salgado MD [address] [place] [address] PCP - GeneralFami Ywpvhycx17/1/24Team MemberRelationshipSpecialtyStart DateEnd Date Gilson Salgado MD [address] [place] [address] PCP - GeneralFami Tfzzbhuj03/1/24 Reason for Visit (unrecogniz ed section and content) ReasonCommentsToenail CareReasonCommentsFollow-upNailcare FOR RECORDS PERTAINING TO PATIENTS WHO ARE [...] BE BASED ON THE PRIMARY CLINICAL RECORDS. [employer] [facility]. provides no warranty or guarantee of the accuracy or completeness of information in this document.
[2024-11-27 12:34] LABS: Anion Gap 10.1; Blood Urea Nitrogen 21.0 mg/dL (7.0-18.0); Calcium 8.8 mg/dL (8.5-10.1); Carbon Dioxide 28.8 mmol/L (21.0-32.0); Chloride 106 mmol/L (98-107); Estimated GFR (African America >60 (>=60 mL/min/1.73m^2); Estimated GFR (Non-African Ame 52 (>=60 mL/min/1.73m^2); Glucose 84 mg/dL (74-106); Potassium 3.9 mmol/L (3.5-5.1); Sodium 141 mmol/L (136-145)
== END 2024-11-27 11:47 | disposition home or self-care (01) ==
LOC: LAB 11:50
PROVIDERS: PCP Nurse Practitioner Family
DX: N18.30 Chronic kidney disease, stage 3 unspecified (principal)
CPT/HCPCS: 36415; 80048